=== PATIENT | male | born 1955 | race Caucasian/White ===

== ENCOUNTER 2024-11-19 04:27 | Inpatient (IN) | payer OTHER, MEDICAID ==
[~2024-11-19] VITALS: Ht 180.3 cm; Wt 74.8 kg
[2024-11-19] VITALS (10 sets, daily range): BP systolic 81–124; BP diastolic 32–98; PULSE 63–93; RESP 20–38; TEMP 98.1; O2SAT 91–100
[~2024-11-19 04:27] MED LIST: CEPH-37 PO; NORPTMEDS CO; SILV-51 TOP; TRAM50TA2 PO
[2024-11-19] MEDS: IPRATROPIUM BROM 0.5 MG/2.5ML INH SOL NEB ONE (04:41)
[2024-11-19] MEDS: ALBUTEROL SULF 2.5 MG/0.5ML(0.5%) NEB SOLN NEB ONE ×2 (04:42→14:59)
[2024-11-19] MEDS: LORazepam 2MG/ML-1ML VIAL IV ONE ×3 (04:57→06:36)
[2024-11-19] MEDS: methylPREDNISolone SOD SUCC 125 MG/2 ML VL IV ONE (04:57)
--- NOTE | 2024-11-19 05:01 | ED.PDOC ---
SOB-HPI HPI Comments HPI: Poor Historian. 69-year-old male presents to emergency department for acute respiratory distress has been going on for at least one-week progressively getting worse. Patient smokes methamphetamine daily. Patient is extremely poor historian. Patient does not know his past medical history. Patient states having shortness of breath unable to take a full breath in. RT was called to bedside. Chest x-ray was performed stat. Patient was given breathing treatment and Solu-Medrol. Patient was placed on a BiPAP with some Ativan to help calm down. No family members at bedside. Past Medical History: Hypertension Past Surgical History: Cervical spine surgery REVIEW OF SYSTEMS: CONSTITUTIONAL: Denies acute: fever, diaphoresis, chills, HEAD: Denies acute: headache, photophobia Eyes: Denies acute: Double vision, vision loss, eye pain, eye discharge. EARS: Denies acute: tinnitus, hearing loss, ear discharge, ear pain, THROAT: Denies acute: sore throat, swelling, difficulty swallowing , pain with swallowing, change in voice. NECK: Denies acute: neck pain, neck swelling, stiff neck. HEART: Denies acute : chest pain, palpitations, LUNGS: Denies acute: wheezing, cough, hemoptysis ABDOMEN: Denies acute: abdominal pain, Nausea, Vomiting, diarrhea, melena , hematemesis, hematochezia SKIN: Denies acute: rash, redness, lesions, itchiness. EXTREMITIES: Denies acute: calf pain, numbness, tingling, weakness, denies pain in extremity. Denies acute: Low back pain. Neuro: Denies acute: focal neurological deficit, motor or sensory focal neurological deficit, tremors, seizure like activity, confusion, dizziness, change in mental status, loss of bowel or bladder function, cauda equina like symptoms. : Denies acute: dysuria, hematuria, flank pain, increase in urinary frequency. PSYCH: Denies acute: hallucination, suicidal ideation, homicidal ideation. PHYSICAL EXAM: General: ---moderate -----acute distress, awake and alert. Head: normocephalic, atraumatic. Neck: supple, trachea is midline, no swelling. Throat: Normal phonation. Eyes:, no erythema, no purulent discharge, no proptosis, no icterus. Heart: regular rate, regular rhythm, no significant murmur appreciated. Lungs: Acute respiratory distress, tachypnea No wheezing, no rhonchi, no crackles. No stridors Clear to auscultation bilaterally. Abdomen: non tender to palpation, non distended, soft, no guarding, no rebound, + bowel sounds. Neuro: Awake, Alert, oriented to name, self, situation, follows commands GCS=15. Speech is normal. Skin: no petechia, no purpura, no cyanosis, non-pale, not jaundice. Lower extremities: --no - Pitting edema no deformity, no focal swelling, no calf TTP. Makes eye contact. moves all four extremities. Face: no apparent facial droop. ED COURSE: DISCLAIMER: This medical document was created using an electronic medical record system with voice recognition software and computerized dictation system. Although this document has been carefully reviewed, there might still be some phonetic and typographical errors. Occasional wrong-word or "sound-alike" substitutions may have occurred due to the inherent limitations of voice recognition software. These areas are purely typographical due to imperfections of the software programs and do not reflect any compromise in the patient's medical care. Please read the chart carefully and recognize, using context, where these substitutions have occurred. Chief Complaint: Shortness of Breath Time Seen by MD: 04:57 Primary Care Provider: NONE Reviewed notes: Allergies Information Source: Patient Mode of Arrival: Wheelchair Past Medical History PAST MEDICAL HISTORY: Denies Surgical History: Denies all surgeries Family History Family History: Unobtainable Social History Smoker: Cigarettes, Greater Than 1 Pack/Day Alcohol: Denies ETOH Use Drugs: Denies Drug Use Lives In: Home Was a procedure done? Was a procedure done?: No Differential Dx Differential Diagnosis: Anxiety, Asthma, Bronchitis, Pneumonia, Sinusitis, Allergic Rhinitis, Other (DDx include ACS, unstable angina, anxiety, PE, pneumothroax, neoplasm, cardiac ischemia, COPD, asthma, CHF, pleural effusion, tobacco abuse, pneumonia, hypoxia, hypercapnia, anemia., infection/sepsis., pulmonary edema. Asthma, Cardiac tamponade, infection.) X-Ray, Labs, Meds, VS Vital Signs Date Time Temp Pulse Resp B/P (MAP) Pulse Ox O2 Delivery O2 Flow Rate FiO2 11/19/24 05:25 115/82 11/19/24 05:16 98.1 88 24 115/82 100 40 98.1 11/19/24 04:50 90 115/82 Facial BiPAP Mask 40 11/19/24 04:42 22 100 Non-Rebreather 12 N/A 11/19/24 04:41 88 20 95 Non-Rebreather 11 N/A 11/19/24 04:41 98.1 88 20 160/87 (111) 99 98.1 11/19/24 04:40 87 11/19/24 04:29 98.5 85 30 127/46 89 98.5 Lab Test 11/19/24 05:13 11/19/24 04:40 Range/Units White Blood Count Pending Red Blood Count Pending Hemoglobin Pending Hematocrit Pending Mean Corpuscular Volume Pending Mean Corpuscular Hemoglobin Pending Mean Corpuscular Hemoglobin Concent Pending Red Cell Distribution Width Pending Platelet Count Pending Mean Platelet Volume Pending Neutrophils (%) (Auto) Pending Lymphocytes (%) (Auto) Pending Monocytes (%) (Auto) Pending Basophils (%) (Auto) Pending Neutrophils # (Auto) Pending Lymphocytes # (Auto) Pending Monocytes # (Auto) Pending Sodium Level Pending Potassium Level Pending Chloride Level Pending Carbon Dioxide Level Pending Anion Gap Pending Blood Urea Nitrogen Pending Creatinine Pending Glomerular Filtration Rate Calc Pending BUN/Creatinine Ratio Pending Serum Glucose Pending Calcium Level Pending Total Bilirubin Pending Aspartate Amino Transferase (AST) Pending Alanine Aminotransferase (ALT) Pending Alkaline Phosphatase Pending B-Type Natriuretic Peptide Pending Total Protein Pending Albumin Pending Troponin I High Sensitivity 371 *H </=54 ng/L Current Medications Medications (Trade) Dose Ordered Sig/Dona Route Start Time Stop Time Status Last Admin Albuterol (Ventolin Medneb) 2.5 mg ONCE ONCE NEB 11/19/24 04:30 11/19/24 04:31 DC 11/19/24 04:42 Ipratropium [place] (Atrovent Medneb) 0.5 mg ONCE ONCE NEB 11/19/24 04:30 11/19/24 04:31 DC 11/19/24 04:41 Methylprednisolone Sodium Succinate (Solu Medrol) 125 mg ONCE ONCE IV 11/19/24 04:45 11/19/24 04:46 DC 11/19/24 04:57 Lorazepam (Ativan Inj) 1 mg ONCE ONCE IV 11/19/24 05:00 11/19/24 05:01 DC 11/19/24 04:57 Furosemide (Lasix Injection) 40 mg ONCE ONCE IV 11/19/24 05:15 11/19/24 05:16 DC 11/19/24 05:25 Lorazepam (Ativan Inj) 1 mg ONCE ONCE IV 11/19/24 05:30 11/19/24 05:31 DC 11/19/24 05:30 Aspirin 325 mg ONCE ONCE PO 11/19/24 06:15 11/19/24 06:16 11/19/24 06:10 [place] [id number] Ph: [phone] DIAGNOSTIC IMAGING Diagnostic Imaging Report : [id number] Signed PATIENT: LEONOR GRAF ACCT: [id number] UNIT: [id number] : 1955 LOC: ER ROOM / BED: / AGE / SEX: 69 / M ADM STATUS: REG ER SERVICE ORDERING PHYSICIAN: NERI EDOUARD DO PROCEDURE(s): CXRP - CHEST PORTABLE REASON: sob ORDER NUMBER(s): [id number], ACCESSION NUMBER(s): [id number] CHEST RADIOGRAPH Indication: sob Technique: Single frontal view of the chest was obtained COMPARISON: None FINDINGS: Lines and Tubes: None Lungs: Increased interstitial prominence Pleura: No effusion. No pneumothorax. Cardiomediastinal contours: Unremarkable Bones: Unremarkable IMPRESSION: Increased interstital prominence. This may represent pulmonary vascular congestion and/or viral pneumonia. Clinical correlation advised. ATED BY: PORFIRIO THIBODEAUX MD DICTATED DATE/TIME: 11/19/24508 SIGNED BY: PORFIRIO THIBODEAUX MD SIGNED DATE/TIME: 11/19/24508 CC: Time of 1ST Reevaluation: 06:15 (As of now, all labs are still pending except troponin. Patient was placed on a BiPAP and he is improving. ABG was obtained.) Reevaluation 1ST: Improved Patient Education/Counseling: Diagnosis, Treatment Family Education/Counseling: Other Comments MDM: patient presented with the above HPI.--acute respiratory d istress----workup was initiated. patient was found with the above mentioned diagnosis. the following medications were ordered: please refer to order lists of meds and tests obtained by myself Dr. Edouard. Patient ED course and VS have been stabilized. Patient has been reassessed in the ED and remained in a guarded condition. Pertinent incidental findings were discussed with the patient and/or family. Patient/family voices understanding and is agreeable with plan. Patient has been observed in the ED adequate length of time to insure improvement/stability. Escalation of care considered: Consideration of escalation to observation or admission Patient was given Lasix, Ativan, full-dose aspirin, Solu-Medrol, DuoNeb treatment. Patient was placed on a BiPAP to help diurese. Patient was ADMITTED to the medicine team for further evaluation and treatment of their presentation. All the reports of any imaging studies that were ordered by myself were reviewed by myself. Departure 1 Departure Time of Disposition: 05:00 Impression: Primary Impression: Acute respiratory distress Additional Impressions: Methamphetamine abuse Pulmonary vascular congestion Elevated troponin Disposition: ADMITTED INPATIENT Admit to: Tele Condition: Guarded Additional Instructions: [place] [address] Ph: [phone] DIAGNOSTIC IMAGING Diagnostic Imaging Report : [id number] Signed PATIENT: LEONOR GRAF ACCT: [id number] UNIT: [id number] : 1955 LOC: ER ROOM / BED: / AGE / SEX: 69 / M ADM STATUS: REG ER SERVICE 0440 ORDERING PHYSICIAN: NERI EDOUARD DO PROCEDURE(s): CXRP - CHEST PORTABLE REASON: sob ORDER NUMBER(s): [id number], ACCESSION NUMBER(s): [id number] CHEST RADIOGRAPH Indication: sob Technique: Single frontal view of the chest was obtained COMPARISON: None FINDINGS: Lines and Tubes: None Lungs: Increased interstitial prominence Pleura: No effusion. No pneumothorax. Cardiomediastinal contours: Unremarkable Bones: Unremarkable IMPRESSION: Increased interstital prominence. This may represent pulmonary vascular congestion and/or viral pneumonia. Clinical correlation advised. ATED BY: PORFIRIO THIBODEAUX MD DICTATED DATE/TIME: 11/19/24508 SIGNED BY: PORFIRIO THIBODEAUX MD SIGNED DATE/TIME: 11/19/24508 CC: Discharged With: Self Critical Care Note Critical Care Time?: Yes (45 min-critical care time only) Heart Score Heart Score: Heart Score Response (Comments) Value History Slightly Suspicious 0 EKG Normal 0 Age >65 2 Risk Factors 1 or 2 risk factors 1 Troponin >3 x's Normal limit 2 Total 5 I personally scribed for NERI EDOUARD DO ([email or web address]) on 11/19/24 at 05:15. Electronically submitted by Bety Callejas ([facility]). NERI EDOUARD DO Nov 19, 2024 05:01
--- NOTE | 2024-11-19 05:12 | DVH ---
CHEST RADIOGRAPH Indication: sob Technique: Single frontal view of the chest was obtained COMPARISON: None FINDINGS: Lines and Tubes: None Lungs: Increased interstitial prominence Pleura: No effusion. No pneumothorax. Cardiomediastinal contours: Unremarkable Bones: Unremarkable IMPRESSION: Increased interstital prominence. This may represent pulmonary vascular congestion and/or viral pneum onia. Clinical correlation advised.
[2024-11-19] MEDS: FUROSEMIDE 40 MG/4 ML VIAL IV ONE ×2 (05:25→06:37)
--- NOTE | 2024-11-19 05:33 | ECG ---
[facility] Test Date: 2024-11-19 Test Time: 04:40:42 Pat Name: LEONOR GRAF Department: Room: [address] [place] [address] Gender: M Physical Therapy Technician: SHANNON : 1955 Requested By: NERI EDOUARD Order Number: [id number] Reading MD: Charles Beatty Measurements Intervals [place] Rate: 87 P: 41 AK: 167 QRS: -68 QRSD: 108 T: 110 QT: 343 QTc: 413 Interpretive Statements Sinus rhythm Left anterior fascicular block Anterior infarct, old Abnormal T, consider ischemia, lateral leads Minimal ST elevation, lateral leads Artifact in lead(s) I,II,III,aVR,aVL,aVF,V1,V2,V3,V4,V5,V6 and baseline wander in lead(s) I,II,aVR,aVL,aVF,V3,V4 Electronically Signed On 11-25-2024 19:07:28 PDT by Charles Beatty Please click the below link to view image of tracing.
[2024-11-19 06:29] LABS: Base Excess -7.3 mmol/L (-2.0-3.0)
[2024-11-19 07:22] LABS: Hematocrit 50.8 % (41.0-53.0); Hemoglobin 16.7 g/dL (13.5-17.5); Mean Corpuscular Hemoglobin 31.3 pg (28.0-32.0); Mean Corpuscular Volume 95.3 fL (80.0-100.0); Nucleated Red Blood Cells % 0.1 %
[2024-11-19 07:38] LABS: Albumin 4.7 g/dL (3.2-4.8); Alkaline Phosphatase 91 U/L (46-116); Anion Gap 12 (5-15); BUN/Creatinine Ratio 9.0 (10.0-20.0); Blood Urea Nitrogen 14 mg/dL (9-23); Calcium 9.8 mg/dL (8.7-10.4); Sodium 137 mmol/L (136-145); Total Protein 7.9 g/dL (5.7-8.2)
[2024-11-19 07:42] LABS: Alanine Aminotransferase 108 U/L (7-40); Bilirubin, Total 2.0 mg/dL (0.2-1.0); Carbon Dioxide 18 mmol/L (20-31); Chloride 107 mmol/L (98-107); Glucose 115 mg/dL (74-106)
[2024-11-19 07:45] LABS: Potassium 5.9 mmol/L (3.5-5.1)
--- NOTE | 2024-11-19 08:29 | DVHHP2 ---
History of Present Illness Reason for Visit: Shortness of breath History of Present Illness Charlie Vargas, is a 69-year-old male who came to the ER for shortness of breath. According to ER documentation patient came in with complaints of shortness of breath x 1 week. While in the ER he was given a breathing treatment and placed o n oxygen. He continued to have shortness of breath, increased work of breathing, and anxiety. He was placed on a BiPAP, not tolerating due to anxiety, he was given IV Ativan 1mg x 3 doses as well as IV Lasix 40 mg x 2 doses. On my assessment patient was on a BiPAP, not responding to verbal sternal stimuli, painful stimuli, or when a Mayo catheter was placed. Flumazenil was ordered, but not given as patient began to wake up. I was not informed that the patient became awake. According to ER, the patient again was not tolerating the BiPAP, he was anxious, not following commands, and trying to pull at lines and the BiPAP. Patient was intubated by ER provider. ER documentation states the patient has history of hypertension and daily methamphetamine use. Cardiovascular: HTN Past Medical History Unable to obtain Past Surgical History Unable to obtain Family History Unable to obtain Past Social History Unable to obtain Review of Systems Review of Systems Unable to obtain Allergies: Coded Allergies: NO KNOWN ALLERGIES (Unverified , 11/19/24) Exam Vital Signs Vital Signs Date Time Temp Pulse Resp B/P (MAP) Pulse Ox O2 Delivery O2 Flow Rate FiO2 11/19/24 06:37 110/78 11/19/24 06:37 86 Facial BiPAP Mask 100 11/19/24 06:15 98.1 26 98.1 11/19/24 05:16 100 11/19/24 04:42 12 General Appearance: Other (patient altered, unresponsive) HEENT: Other (Mucous membr dry) Respiratory: Other (Diminished breath sounds) Cardiovascular: Regular rate, Normal S1, Normal S2 Abdominal: Normal bowel sounds, Soft, No tenderness Extremities: No clubbing, No cyanosis, No edema, Normal pulses Skin: No rashes, No breakdown, No significant lesion Neuro: Other (patient altered, unresponsive) Labs/Xrays Labs Test 11/19/24 07:09 11/19/24 06:18 11/19/24 05:13 Range/Units White Blood Count 10.9 H 4.4-10.8 10^3/uL Red Blood Count 5.34 4.5-5.90 10^6/uL Hemoglobin 16.7 13.5-17.5 g/dL Hematocrit 50.8 41.0-53.0 % Mean Corpuscular Volume 95.3 80.0-100.0 fL Mean Corpuscular Hemoglobin 31.3 28.0-32.0 pg Mean Corpuscular Hemoglobin Concent 32.8 32.0-36.0 g/dL Red Cell Distribution Width 15.6 H 11.8-14.3 % Platelet Count 200 140-450 10^3/uL Mean Platelet Volume 8.8 6.9-10.8 fL Neutrophils (%) (Auto) 69.8 37.0-80.0 % Lymphocytes (%) (Auto) 23.2 10.0-50.0 % Monocytes (%) (Auto) 4.5 0.0-12.0 % Eosinophils (%) (Auto) 2.0 0.0-7.0 % Basophils (%) (Auto) 0.5 0.0-2.0 % Neutrophils # (Auto) 7.6 1.6-8.6 10 ^3/uL Lymphocytes # (Auto) 2.5 0.4-5.4 10 ^3/uL Monocytes # (Auto) 0.5 0-1.3 10 ^3/uL Eosinophils # (Auto) 0.2 0-0.8 10 ^3/uL Basophils # (Auto) 0.1 0-0.2 10 ^3/uL Nucleated Red Blood Cells 0.1 % D-Dimer, Quantitative 3.28 H 0.0-0.49 mg/L FEU Sodium Level 137 136-145 mmol/L Potassium Level 5.9 *H 3.5-5.1 mmol/L Chloride Level 107 98-107 mmol/L Carbon Dioxide Level 18 L 20-31 mmol/L Anion Gap 12 5-15 Blood Urea Nitrogen 14 9-23 mg/dL Creatinine 1.56 H 0.700-1.30 mg/dL Glomerular Filtration Rate Calc 48 >90 mL/min BUN/Creatinine Ratio 9.0 L 10.0-20.0 Serum Glucose 115 H 74-106 mg/dL Calcium Level 9.8 8.7-10.4 mg/dL Total Bilirubin 2.0 H 0.2-1.0 mg/dL Aspartate Amino Transferase (AST) 116 H 13-40 U/L Alanine Aminotransferase (ALT) 108 H 7-40 U/L Alkaline Phosphatase 91 46-116 U/L Troponin I High Sensitivity 340 *H </=54 ng/L Total Protein 7.9 5.7-8.2 g/dL Albumin 4.7 3.2-4.8 g/dL Blood Gas Specimen Type Arterial Blood Gas Sample Site Left radial Blood Gas Patient Temperature 37.0 Arterial Blood Date Drawn [id number] Arterial Blood pH 7.308 L 7.350-7.450 Arterial Blood Partial Pressure CO2 37.0 35.0-48.0 mmHg Arterial Blood Partial Pressure O2 68.9 L 83.0-108.0 mmHg Arterial Blood HCO3 18.1 L 21.0-28.0 mmol/L Arterial Blood Oxygen Saturation 91.1 L 94.0-98.0 % Arterial Blood Base Excess -7.3 L -2.0-3.0 mmol/L Arterial Blood Oxyhemoglobin 89.6 L 94.0-98.0 % Arterial Blood Carboxyhemoglobin 1.2 0.5-1.5 % Arterial Blood Methemoglobin 0.5 0.0-1.5 % Darci Test Yes Blood Gas Total Hemoglobin 16.60 13.5-17.5 g/dL Blood Gas Set Respiration Rate 20.0 Blood Gas Modality Mask - bipap Blood Gas Spontaneous Rate 36 FiO2 % 40.0 Blood Gas EPAP 8 Blood Gas IPAP 15 B-Type Natriuretic Peptide 1450.30 0-100 pg/mL CHEST RADIOGRAPH FINDINGS: Lines and Tubes: None Lungs: Increased interstitial prominence Pleura: No effusion. No pneumothorax. Cardiomediastinal contours: Unremarkable Bones: Unremarkable IMPRESSION: Increased interstitial prominence. This may represent pulmonary vascular congestion and/or viral pneumonia. Clinical correlation advised. SEPSIS Sepsis Screen Date sepsis recognized/suspect: Nov 19, 2024 Time Sepsis recognized/suspect: 0450 Recent Procedure: No On Antibiotic Therapy: No Respiratory Rate >20: Yes Heart Rate >90: No Temp<36 C (96.8 F) or >38.3 C: No SBP <90 or MAP <65 mmHG: No New Acute Mental Status Change: No Is the patient on CPAP, BIPAP,: Yes Physician Orders [employer] (11/19/24 ) Chest Portable (11/19/24 04:40) Troponin-I Hs (11/19/24 07:40) Abg W/ Co-Ox (11/19/24 06:19) Abg W/ Co-Ox (11/19/24 06:21) Flumazenil Injection (Romazicon Injectio (11/19/24 08:30) Admit (11/19/24 08:24) Code Status (11/19/24 08:24) Ondansetron Hcl (Zofran) (11/19/24 08:30) Docusate Sodium Capsule (Colace Capsule) (11/19/24 08:30) Complete Blood Count (11/20/24 04:00) Comprehensive Metabolic Panel (11/20/24 04:00) Npo (Nothing By Mouth) Diet (11/19/24 Breakfast) Echo 2d Mode Cardiac Dop (11/19/24 08:24) Condition: Critical (11/19/24 08:24) Acetaminophen Tablet (Tylenol Tablet) (11/19/24 08:30) Nitroglycerin Sublingual (Ntrostat Subli (11/19/24 08:30) Morphine Sulfate Injection (11/19/24 08:30) Stat Ekg For Chest Pain (11/19/24 08:24) Notify Md Of Changes From Base (11/19/24 08:24) Supervisor Fitting For 24 Hours (11/19/24 08:24) Emergency Dysrhythmia Protocol (11/19/24 08:24) Rhythm Strips Once Every Shift (11/19/24 08:24) Oxygen By Nasal Cannula (11/19/24 08:24) Vital Signs Date Time Temp Pulse Resp B/P (MAP) Pulse Ox O2 Delivery O2 Flow Rate FiO2 11/19/24 06:37 110/78 11/19/24 06:37 86 99/78 Facial BiPAP Mask 100 11/19/24 06:15 98.1 84 26 99/78 (85) 98.1 11/19/24 05:25 115/82 11/19/24 05:16 98.1 88 24 115/82 100 40 98.1 11/19/24 04:50 90 115/82 Facial BiPAP Mask 40 11/19/24 04:42 22 100 Non-Rebreather 12 N/A 11/19/24 04:41 88 20 95 Non-Rebreather 11 N/A 11/19/24 04:41 98.1 88 20 160/87 (111) 99 98.1 11/19/24 04:40 87 11/19/24 04:29 98.5 85 30 127/46 89 98.5 Laboratory Tests Test 11/19/24 07:09 White Blood Count 10.9 10^3/uL (4.4-10.8) H Medications Medications Dose Ordered Sig/Dona Route Start Time Stop Time Status Last Admin Dose Admin Albuterol 2.5 mg ONCE ONCE NEB 11/19/24 04:30 11/19/24 04:31 DC 11/19/24 04:42 2.5 MG Aspirin 325 mg ONCE ONCE PO 11/19/24 06:15 11/19/24 06:16 DC 11/19/24 06:10 325 MG Furosemide 40 mg ONCE ONCE IV 11/19/24 05:15 11/19/24 05:16 DC 11/19/24 05:25 40 MG Furosemide 40 mg ONCE ONCE IV 11/19/24 06:45 11/19/24 06:46 DC 11/19/24 06:37 40 MG Ipratropium [place] 0.5 mg ONCE ONCE NEB 11/19/24 04:30 11/19/24 04:31 DC 11/19/24 04:41 0.5 MG Lorazepam 1 mg ONCE ONCE IV 11/19/24 05:00 11/19/24 05:01 DC 11/19/24 04:57 1 MG Lorazepam 1 mg ONCE ONCE IV 11/19/24 05:30 11/19/24 05:31 DC 11/19/24 05:30 1 MG Lorazepam 1 mg ONCE ONCE IV 11/19/24 06:30 11/19/24 06:32 DC 11/19/24 06:36 1 MG Methylprednisolone Sodium Succinate 125 mg ONCE ONCE IV 11/19/24 04:45 11/19/24 04:46 DC 11/19/24 04:57 125 MG Assessment/Plan Assessment/Plan Assessment: Acute hypoxemic respiratory failure, Elevated troponin, Acute kidney injury, Elevated D-Dimer, Leukocytosis, Methamphetamine abuse, Cardiomegaly, Likely CHF exacerbation, Hyperkalemia, Plan: Admit to ICU, Cardiology consult, Mechanical ventilation, CT angio chest, IV Lasix, IV antibiotics, Blood cultures, Head CT, ECHO, Plan discussed with: Patient My Orders Orders - MEL ZHU Procedure Category Date Status Time Flumazenil Injection PHA 11/19/24 Logged (Romazicon Injectio 08:30 Admit ADMIT 11/19/24 Transmitted 08:24 Code Status CODE 11/19/24 Transmitted 08:24 Ondansetron Hcl PHA 11/19/24 Transmitted (Zofran) 08:30 Docusate Sodium PHA 11/19/24 Transmitted Capsule (Colace 08:30 Complete Blood Count LAB 11/20/24 Verified 04:00 Comprehensive LAB 11/20/24 Verified Metabolic Panel 04:00 Npo (Nothing By DIET 11/19/24 Transmitted Mouth) Diet Breakfast Echo 2d Mode Cardiac US 11/19/24 Transmitted DOP 08:24 Condition: Critical [facility] 11/19/24 In Process 08:24 Acetaminophen Tablet [facility] 11/19/24 Transmitted (Tylenol Tablet) 08:30 Nitroglycerin [facility] 11/19/24 Transmitted Sublingual (Ntrostat 08:30 Morphine Sulfate PHA 11/19/24 Transmitted Injection 08:30 Stat Ekg For Chest [facility] 11/19/24 In Process Pain 08:24 Notify Of Changes [facility] 11/19/24 In Process From Base 08:24 Supervisor Fitting For [facility] 11/19/24 In Process 24 Hours 08:24 Emergency Dysrhythmia [facility] 11/19/24 In Process Protocol 08:24 Rhythm Strips Once [facility] 11/19/24 In Process Every Shift 08:24 Oxygen By Nasal RT 11/19/24 Transmitted Cannula 08:24 Date of Service: Nov 19, 2024 Billing Provider: MEL ZUH Common Visit Codes: [id number] INP/OBS CARE (HIGH) MEL ZHU Nov 19, 2024 08:29
[2024-11-19] MEDS ORDERED: MORPHINE SULFATE INJ 2 MG/ml SYRG IV PRN ×2 (08:30→08:45)
[2024-11-19] MEDS: FLUMAZENIL 0.1 MG/ML INJ 10ML MDV IV ONE (08:30)
[2024-11-19] MEDS ORDERED: FLUMAZENIL 0.1 MG/ML INJ 10ML MDV IV ONE (08:30)
[2024-11-19] MEDS ORDERED: ONDANSETRON HCL 4 MG/2 ML VIAL IV PRN ×2 (08:30→08:45)
[2024-11-19] MEDS ORDERED: NITROGLYCERIN 0.4 MG SL TAB SL PRN ×2 (08:30→08:45)
[2024-11-19] MEDS ORDERED: ACETAMINOPHEN 325 MG TAB PO PRN (08:30)
[2024-11-19] MEDS ORDERED: DOCUSATE SOD 100 MG CAP PO PRN ×2 (08:30→08:45)
[2024-11-19] MEDS: SODIUM CHLORIDE 0.9% 1,000 ML IV ONE (08:45)
[2024-11-19] MEDS: ETOMIDATE (2MG/ML) 20ML VIAL IV ONE ×2 (09:15→09:30)
[2024-11-19] MEDS: ROCURONIUM 10MG/ML 10ML VIAL IV ONE ×2 (09:15→09:30)
[2024-11-19] MEDS: MIDAZOLAM DRIP 50 mg/50mL 50 ML IV ONE (09:22)
[2024-11-19] MEDS: MIDAZOLAM DRIP 50 mg/50mL 50 ML IV SCH (09:30)
--- NOTE | 2024-11-19 10:35 | DVHNC2 ---
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 Indication: Hypotension, CVP monitoring Room prepared for procedure: Yes Business Analytics Specialist performed hand hygien: Yes Maximal sterile barrier precau: Mask/Eye shield, Sterile gown Skin Preparation: Chlorhexidine gluconate, Providine iodine Skin preparation completely dr: Yes Insertion site: Right, Femoral Central line catheter type: [id number]-[id number] dialysis Number of lumens: 3 Antiseptic ointment applied to: Yes Intubation Indication: Respiratory Insufficiency Prep: Preoxygenation Pretreated with: Analgesia Medicated with: Vecuronium Intubation Approach: Orotracheal Intubation size: cm (8) Date of Service: Nov 19, 2024 Billing Provider: MARÍA ELENA HINES MD Common Visit Codes: [id number] INP/OBS CARE (HIGH) Secondary Visit Codes: [id number] STANDBY SERVICE Consultation Codes: [id number] CONSULT <45MIN Procedure Codes: [id number], 32039-[id number] NON-TUNNEL CV CATH MARÍA ELENA HINES MD Nov 19, 2024 10:35
--- NOTE | 2024-11-19 10:50 | DVH ---
INDICATION: S/P INTUBATION, OG PLACEMENT, CENTRAL LINE PLACEMENT TECHNIQUE: Frontal view of the chest. COMPARISON: XY CHEST PORTABLE on DOS: 11/19/24 FINDINGS: Nasogastric tube tip in the stomach. Endotracheal tube 6 cm from the pelon.. The heart and mediasti nal contours are grossly unremarkable. There is no evidence of pleural disease. Increased interstiti al opacities.. The bony structures of the chest are intact without fracture. IMPRESSION: 1. Cardiomegaly with CHF.
[2024-11-19] MEDS ORDERED: ALTEPLASE (RECOMBINANT) 100 MG in STERILE WATER 100 ML IV ONE (11:00)
--- NOTE | 2024-11-19 11:25 | RESUS ---
SERJIO BLUE ASSESSSMENT History of Events History of Events: Patient was in radiology for CT scan. Upon completing first exam, contrast was given for second exam. Per primary nurse Cathi, shortly after, patient went pulseless into asystole. Serjio neal called and CPR was initiated. This is an inpatient who was admitted for Acute Hypoxic Respiratoroy Failure who was already intubated with Versed 5mg/hr infusing. History of hypertension and substance abuse. Initial Information Date: Nov 19, 2024 Time: 10:49 Location of Arrest: Radiology (CT room) Arrest Witnessed: Yes CPR started by whom: Hospital Staff Pre-Hospital Care: ACLS Type of arrest: Cardiac, Respiratory, Adult, Witnessed Spontaneous Respirations: No Pulse Present: No Monitoring: ECG, Pulse Oximetry Crash Cart Opened and Supplies: Yes Airway Ventilation Breathing at Onset: Assisted O2 Sat by Pulse Oximetry: 91 Oxygen Delivery Method: Ambu-Bag Artificial Ventilation: Bag/Endo tube Intubation Size: 8.0 cuffed Intubated orally: Yes Intubated Nasaly: No Tube secured at: 22 Comments: Patient was intubated prior to code blue. Circulation Circulation #1: Time: 10:50 Pulse Rate (adult): 0 Blood Pressure Systolic: 0 Blood Pressure Diastolic: 0 Circulation #2: Time: 11:00 Pulse Rate (adult): 73 Blood Pressure Systolic: 139 Blood Pressure Diastolic: 75 Circulation Comment: O2sat 96% Circulation #3: Time: 11:05 Pulse Rate (adult): 73 Blood Pressure Systolic: 134 Blood Pressure Diastolic: 83 Circulation Comment: O2sat 88% Circulation #4: Time: 11:15 Pulse Rate (adult): 73 Blood Pressure Systolic: 111 Blood Pressure Diastolic: 75 Temperature (Fahrenheit): 96.4 (rectal) Defibrillation Defbrillation : EKG Rhythm: V-Tachycardia Compressions: Manual Time Defibrillator Shocked Pt.: 10:51 Defib. Joules: 120 Pulse Present: No EKG Rhythm: Junctional Procedure - IV Procedure - IV : IV Side: Right IV Location: Wrist IV Catheter Type: Saline Lock IV Gauge: 20 IV Line Care: Saline Flush Comment Saline lock placed prior to code blue. Medications & Response Medications and Responses #1: Medication Time: 10:50 ADULT Medications Given ADULT: Epinephrine 1 mg, Sodium Bacarbinate 50 meq Route of Administration: IV Heart Rate: 0 EKG Rhythm: Asystole Blood Pressure Systolic: 0 Blood Pressure Diastolic: 0 O2 Sat by Pulse Oximetry: 91 EKG Rhythm: V-Tachycardia Medications and Responses #2: Medication Time: 10:52 ADULT Medications Given ADULT: Calcium Chloride 10 mL Route of Administration: IV Heart Rate: 0 EKG Rhythm: V-Tachycardia Blood Pressure Systolic: 0 Blood Pressure Diastolic: 0 O2 Sat by Pulse Oximetry: 92 EKG Rhythm: Other (Sinus Arrhythmia) Medications and Responses #3: Medication Time: 10:54 ADULT Medications Given ADULT: Sodium Bacarbinate 50 meq Route of Administration: IV Heart Rate: 66 EKG Rhythm: Sinus Rhythm Medications and Responses #4: Medication Time: 11:13 ADULT Medications Given ADULT: D50 (amp) Route of Administration: IV Procedure - NG/OG Tube Procedure - NG/OG Tube : Type of gastric tube placed: OG Tube Size: 16 GI Tube Secured: Yes Gastric Tube Suction Type/Desc: Clamped Gastric Content Description: Clear Comment OGT placed prior to code blue. Procedure - Central Venous Cat Central venous catheter site: Rt Femoral Comment: Central line was placed prior to code blue. Procedure - Mayo Catheter Urinary Catheter Type/Location: Uretheral (Mayo) Urinary Catheter Size: 16 Urine Appearance: Clear Urine Color: Yellow Mayo Catheter Secured: Yes Comment: Mayo catheter was placed prior to code blue. Nurses Notes Tammy Coma Scale Eye Opening: None (1) Amma Coma Scale Verbal: None (1) Tammy Coma Scale Motor: None (1) Glascow Total: 3 Pupil Reaction: Sluggish Bedside Blood Glucose: 53 (1110) EKG Rhythm: Sinus Rhythm, V-Tachycardia, Junctional, Asystole Nurses Notes - Comment: 1049: Code blue 1053: ROSC 1104: EKG completed= SR 74 1105: Heparin 5000 units IVP x1 given per Dr. Mittal verbal order. 1110: sprinkler repair technician at bedside. Time Code Ended Time Code Ended: 11:18 Post Arrest Status: Ventilated Outcome of code: Successful Family notified: No Attending called: Yes (1115 Slick Machado FIRER TUNNEL KILN at bedside) Code Team Present: Tesfaye PUENTES, Daxa KOO, Hamzah Pate RT, Cici RN, Lucia RN, Melanie RN, Otis technologist development, Joseline ERT, Leidy well logging captain mud analysis, Pascale RN, Rox RN Post Resuscitation Neurologica Pupil Size: 3 Comment: Equal and sluggish. ROSC Time of ROSC: 10:53 Rox Urena Nov 19, 2024 11:25
[2024-11-19] MEDS: HEPARIN SODIUM (PORCINE) 5000 UNITS/ML 1ML VIAL ONE (11:29)
[2024-11-19] MEDS: DOPamine 1600MCG/ML D5W 250 ML IV SCH ×2 (11:30→18:00)
[2024-11-19] MEDS: HEPARIN SODIUM (PORCINE) 5000 UNITS/ML 1ML VIAL IV ONE (11:30)
[2024-11-19] MEDS: DOPamine 1600MCG/ML D5W 250 ML IV ONE (11:42)
[2024-11-19] MEDS: DEXTROSE 50% SYRINGE 50 ML IV ONE (11:42)
[2024-11-19 11:51] LABS: Base Excess -10.4 mmol/L (-2.0-3.0)
[2024-11-19] MEDS ORDERED: EPINEPHrine HCL 1 MG/10 ML SYRG IV ONE (11:55)
[2024-11-19] MEDS: NOREPINEPHRINE 8 MG/250ML KIT 250 ML IV SCH (12:05)
[2024-11-19 12:16] LABS: Hematocrit 50.6 % (41.0-53.0); Hemoglobin 16.5 g/dL (13.5-17.5); Mean Corpuscular Hemoglobin 30.6 pg (28.0-32.0); Mean Corpuscular Volume 94.1 fL (80.0-100.0); Nucleated Red Blood Cells % 0.2 %
[2024-11-19] MEDS: NOREPINEPHRINE 8 MG/250ML KIT 250 ML IV ONE (12:16)
--- NOTE | 2024-11-19 12:35 | DVH ---
EXAM: CT HEAD WITHOUT CONTRAST INDICATION: S/P INTUBATION TECHNIQUE: CT images of the head were obtained without administration of IV contrast. CT scans at [facility] facility use dose modulation, iterative reconstruction, and/or weight based dosing when appropriate to reduce radiation dose to as low as reasonably achievable. COMPARISON: None FINDINGS: PARENCHYMA: No acute hemorrhage. There is no mass effect, midline shift, or herniation. There is pres ervation of the prakash white differentiation. Mild scattered hypoattenuation along the periventricular, centrum semiovale, and deep white matter tracts, which are nonspecific however statistically most li mary represent chronic microvascular ischemic change. VENTRICLES: No hydrocephalus. EXTRA-AXIAL SPACES: No extra-axial fluid collections. OTHER: The bony structures are intact. Visualized portions of the paranasal sinuses and mastoid air cells are clear. Partially visualized suspected loosening of the screws along the occipital calvarium . IMPRESSION: 1. No CT evidence of an acute intracranial abnormality.
[2024-11-19 13:25] LABS: Base Excess -8.2 mmol/L (-2.0-3.0)
--- NOTE | 2024-11-19 14:11 | DVH ---
Indication: R/O PE Technique: CT axial images of the abdomen and pelvis are obtained with intravenous contrast. Coronal and sagittal reformats were obtained. Radiation Dose Information: CTDI volume is 59.2 mGy. Dose-length product is 1808 mGy*cm Comparison: None FINDINGS: No contrast opacification of the pulmonary arteries. Contrast within the right central venous vascul ature, IVC, right hepatic veins, azygous vein, paralumbar veins Endotracheal tube. No pneumothorax. Bilateral pulmonary airspace consolidation most pronounced withi n the bilateral lower lobes. Small bilateral pleural effusions. Cardiomegaly. Coronary artery calcification disease. Small amount of air within the right atrium. Nasogastric tube projecting towards stomach. Cirrhotic morphology liver. Possible cholelithiasis. [id number] thoracic degenerative disc disease. IMPRESSION: No contrast within the pulmonary arteries. Can not evaluate for pulmonary embolism. Contrast within the right hepatic veins, azygous vein, right central venous veins. This can be secon andrew to poor contrast timing, venous stenosis / obstruction, right heart dysfunction. Recommend obtai marcial echocardiogram to further evaluate excluding type of right heart dysfunction, obstructive etiolo gy. Bilateral pulmonary airspace consolidation most pronounced in the lower lobes. Small bilateral pleural effusions. Cardiomegaly and coronary artery calcification disease. Small amount of air within the right atrium, likely iatrogenic. Correlate clinically. Cirrhotic morphology liver. Other findings as described.
[2024-11-19 14:12] LABS: Triglycerides 41.0 mg/dL (< 150)
[2024-11-19 14:13] LABS: Magnesium 2.0 mg/dL (1.6-2.6)
[2024-11-19 14:14] LABS: Cholesterol 107.0 mg/dL (< 200)
[2024-11-19 14:15] LABS: HDL Cholesterol 35.0 mg/dL (40-59)
--- NOTE | 2024-11-19 14:26 | DVHINCON2 ---
Date Seen: Nov 19, 2024 Referring Physician DHAVAL Carlin Reason for Consultation Elevated troponin, CHF exacerbation History of Present Illness This is a 69-year-old male patient who presents to the emergency room with chief complaint of worsening shortness of breath. At the time of assessment, the patient is chemically sedated and mechanically ventilated. Cardiology has been consulted at this time for elevated troponin level and CHF exacerbation. During this admission, the patient was a code blue. Today, while the patient was undergoing a CT angiogram, the patient lost pulse and CPR was initiated (see patient resuscitation status report). A twelve lead electrocardiogram done post CPR reveals normal sinus rhythm with first-degree conduction delay Q-waves in inferior leads. Initial troponin level of 371ng/L with flat trend thereafter. Significant past medical history per bedside RN includes hypertension and metha mphetamine use. No family at bedside to confirm patient's past medical history. Past Medical History Unable to obtain Past Surgical History Unable to obtain Family History Unable to obtain Social History Methamphetamine use per provider notes Allergies: Coded Allergies: NO KNOWN ALLERGIES (Unverified , 11/19/24) Home Meds Active Scripts Cephalexin (Keflex) 500 Mg Cap, 500 MG PO TID, #30 CAP Prov:GARY TONY N.P. 02/11/13 Tramadol Hcl (Tramadol Hcl) 50 Mg Tab, 50 MG PO Q6HP PRN, #30 TAB Prov:GARY TONY N.P. 02/11/13 Silver Sulfadiazine (Silver Sulfadiazine) 1 % Cre, 1 APPLIC TOP DAILY, #1 UNIT Prov:GARY TONY N.P. 02/11/13 Reported Medications No Reported Medication (NO REPORTED MEDICATION) Ea, 0 CO UNK, EA PATIENT HAS NO REPORTED MEDICATIONS 02/11/13 Home Meds Home medications reviewed. Current Medications Current Medications Medications (Trade) Dose Ordered Sig/Dona Route PRN Reason Start Time Stop Time Status Last Admin Ondansetron HCl (Zofran) 4 mg Q4HP PRN IV NAUSEA / VOMITING 11/19/24 08:30 11/19/24 08:37 DC Docusate Sodium (Colace Capsule) 100 mg BIDPRN PRN PO FOR CONSTIPATION 11/19/24 08:30 11/19/24 08:37 DC Acetaminophen (Tylenol Tablet) 650 mg Q6HP PRN PO PAIN SCALE 1-3 OR TEMP>100.4 11/19/24 08:30 11/19/24 08:37 DC Nitroglycerin (Ntrostat Sublingual) 0.4 mg Q5MINP PRN SL FOR CHEST PAIN 11/19/24 08:30 11/19/24 08:37 DC Morphine Sulfate 2 mg Q30M PRN IV FOR CHEST PAIN 11/19/24 08:30 11/19/24 08:37 DC Ondansetron HCl (Zofran) 4 mg Q4HP PRN IV NAUSEA / VOMITING 11/19/24 08:45 Morphine Sulfate 2 mg Q30M PRN IV FOR CHEST PAIN 11/19/24 08:45 Docusate Sodium (Colace Capsule) 100 mg BIDPRN PRN PO FOR CONSTIPATION 11/19/24 08:45 Acetaminophen (Tylenol Tablet) 650 mg Q6HP PRN PO PAIN SCALE 1-3 OR TEMP>100.4 11/19/24 08:45 Nitroglycerin (Ntrostat Sublingual) 0.4 mg Q5MINP PRN SL FOR CHEST PAIN 11/19/24 08:45 Midazolam HCl 50 ml @ 1 mls/hr Q24H IV 11/19/24 09:15 11/19/24 09:30 Dopamine HCl/ Dextrose 250 ml @ 15.338 mls/ hr [id number] IV 11/19/24 11:30 11/19/24 11:30 Norepinephrine Bitartrate 250 ml @ 3.75 mls/hr Q24H IV 11/19/24 12:15 11/19/24 12:05 Review of Systems Constitutional: No symptom reported Ears, Nose, & Throat: No symptom reported Eyes: No symptom reported Neurological: No symptoms reported Pulmonary/Respiratory: Shortness of breath Cardiovascular: No symptom reported Gastrointestinal: No symptom reported Genitourinary: No symptom reported Musculoskeletal: No symptom reported Skin: No symptom reported Psychiatric: No symptom reported Endocrine: No symptom reported Hematologic/Lymphatic: No symptom reported Vital Signs Vital Signs Date Time Temp Pulse Resp B/P (MAP) Pulse Ox O2 Delivery O2 Flow Rate FiO2 11/19/24 13:40 69 26 108/50 (69) 96 100 11/19/24 11:34 205.5 11/19/24 11:25 Ambu-Bag 11/19/24 04:42 12 Physical Exam General Appearance: Calm, relaxed. Pulmonary/Respiratory: Clear, bilateral breaths sounds. Mechanically ventilated Cardiovascular/Chest: Regular rate and rhythm. Peripheral Pulses: 2+ Radial (R). 2+ Radial (L). Abdominal Exam: Normal bowel sounds. Ankle Exam: Negative ankle edema Lower extremities: Negative lower extremity edema Neuro/Mental Status: Chemically sedated Thoughts/Psych: Deferred Appearance: No acute distress. Skin Exam: Cool skin. Unable to palpate pedal pulses. Labs/Diagnostic Data Labs Test 11/19/24 14:02 11/19/24 13:08 11/19/24 13:00 11/19/24 12:13 Range/Units Blood Gas Specimen Type Arterial Blood Gas Sample Site Right radial Blood Gas Patient Temperature 37.0 Arterial Blood Date Drawn [id number] Arterial Blood pH 7.196 *L 7.350-7.450 Arterial Blood Partial Pressure CO2 54.4 H 35.0-48.0 mmHg Arterial Blood Partial Pressure O2 68.5 L 83.0-108.0 mmHg Arterial Blood HCO3 20.6 L 21.0-28.0 mmol/L Arterial Blood Oxygen Saturation 89.3 L 94.0-98.0 % Arterial Blood Base Excess -8.2 L -2.0-3.0 mmol/L Arterial Blood Oxyhemoglobin 88.4 L 94.0-98.0 % Arterial Blood Carboxyhemoglobin 0.6 0.5-1.5 % Arterial Blood Methemoglobin 0.4 0.0-1.5 % Darci Test Modified Blood Gas Total Hemoglobin 17.20 13.5-17.5 g/dL Blood Gas Set Respiration Rate 26.0 Blood Gas Modality Vent - ac FiO2 % 100.0 Blood Gas Tidal Volume 550.0 Blood Gas PEEP or CPAP 8.0 Blood Gas Critical Value Read Back yes Blood Gas Notified Whom Blood Gas Notified Time [id number] Blood Gas Notified By mining plant operator mor Magnesium Level 2.0 1.6-2.6 mg/dL Triglycerides Level 41 < 150 mg/dL Cholesterol Level 107 < 200 mg/dL LDL Cholesterol 65 < 100 mg/dL HDL Cholesterol 35 L 40-59 mg/dL POC Glucose 154 H 70-106 mg/dl Test 11/19/24 12:05 11/19/24 07:09 11/19/24 06:18 11/19/24 05:13 Range/Units White Blood Count 14.1 #H 4.4-10.8 10^3/uL Red Blood Count 5.38 4.5-5.90 10^6/uL Hemoglobin 16.5 13.5-17.5 g/dL Hematocrit 50.6 41.0-53.0 % Mean Corpuscular Volume 94.1 80.0-100.0 fL Mean Corpuscular Hemoglobin 30.6 28.0-32.0 pg Mean Corpuscular Hemoglobin Concent 32.5 32.0-36.0 g/dL Red Cell Distribution Width 15.3 H 11.8-14.3 % Platelet Count 141 140-450 10^3/uL Mean Platelet Volume 9.0 6.9-10.8 fL Neutrophils (%) (Auto) 90.0 H 37.0-80.0 % Lymphocytes (%) (Auto) 5.8 L 10.0-50.0 % Monocytes (%) (Auto) 3.8 0.0-12.0 % Eosinophils (%) (Auto) 0.3 0.0-7.0 % Basophils (%) (Auto) 0.1 0.0-2.0 % Neutrophils # (Auto) 12.7 H 1.6-8.6 10 ^3/uL Lymphocytes # (Auto) 0.8 0.4-5.4 10 ^3/uL Monocytes # (Auto) 0.5 0-1.3 10 ^3/uL Eosinophils # (Auto) 0 0-0.8 10 ^3/uL Basophils # (Auto) 0 0-0.2 10 ^3/uL Nucleated Red Blood Cells 0.2 % Troponin I High Sensitivity 359 *H </=54 ng/L D-Dimer, Quantitative 3.28 H 0.0-0.49 mg/L FEU Blood Gas Spontaneous Rate 36 Blood Gas EPAP 8 Blood Gas IPAP 15 B-Type Natriuretic Peptide 1450.30 0-100 pg/mL Assessment Cardiopulmonary arrest status post CPR with ROSC Rule out structural heart disease NSTEMI Acute hypoxic respiratory failure Acute kidney injury Hyperkalemia Shock liver History of methamphetamine use Plan/Recommendation We will continue with following plan/recommendations (Dr. Beatty): We will proceed with obtaining a transthoracic echocardiogram to evaluate cardiac function and wall motion. Continue with vasopressor therapy for hemodynamic support. The patient underwent a CTA and subsequently had cardiopulmonary arrest in which CPR was initiated immediately and ROSC was achi eved within 4 minutes. Pupils reactive to light at time of assessment. CT angiography report was unable to evaluate for pulmonary embolism due to no contrast within the pulmonary arteries. D-dimer is noted to be elevated. The patient also has hyperkalemia and acute kidney injury at this time. We are awaiting echocardiogram results. The patient may benefit from ischemic workup w ith improvement in electrolyte derangement and kidney function. In the meantime, continue with close cardiac surveillance. Further recommendations per clinical course and progression. Thank you for allowing us to care for this patient. Please call with any questions or concerns. Critical care time spent: 44 minutes This medical document was created using an electronic medical record system with voice recognition software and computerized dictation system. Although this document has been carefully reviewed, there might still be some phonetic and typographical errors. Occasional wrong-word or ``sound-alike substitutions may have occurred due to the inherent limitations of voice recognition software. These areas are purely typographical due to imperfections of the software programs and do not reflect any compromise in the patient's medical care. Please read the chart carefully and recognize, using context, where these substitutions have occurred. Plan discussed with: Patient NYHA Physical activity limitations: NA Date of Service: Nov 19, 2024 Billing Provider: HEMA SCHWARZ Cardiology Common Codes: 71037-UJXSDEG INP/OBS CARE (High) Cardiology Consultation Codes: 07994-SCHLFYSPU CONSULT <45MIN HEMA SCHWARZ Nov 19, 2024 14:26
[2024-11-19 14:34] LABS: Sodium 137 mmol/L (136-145)
[2024-11-19 14:35] LABS: Anion Gap 12 (5-15); Calcium 9.6 mg/dL (8.7-10.4); Carbon Dioxide 20 mmol/L (20-31); Chloride 105 mmol/L (98-107); Potassium 8.3 mmol/L (3.5-5.1)
[2024-11-19 14:39] LABS: BUN/Creatinine Ratio 17.0 (10.0-20.0); Blood Urea Nitrogen 34 mg/dL (9-23); Glucose 135 mg/dL (74-106)
[2024-11-19 14:44] LABS: Alanine Aminotransferase 796 U/L (7-40); Albumin 4.1 g/dL (3.2-4.8); Alkaline Phosphatase 103 U/L (46-116); Bilirubin, Total 4.8 mg/dL (0.2-1.0); Total Protein 6.7 g/dL (5.7-8.2)
[2024-11-19] MEDS: EPINEPHrine HCL 250 ML IV SCH (14:45)
[2024-11-19] MEDS: DEXTROSE (50%) 50ML SYRG IV ONE (14:45)
[2024-11-19] MEDS: CALCIUM GLUC 1,000mg/50ml-NS 50 ML IV ONE (14:45)
[2024-11-19] MEDS: ALBUTEROL SULF 2.5 MG/0.5ML(0.5%) NEB SOLN ONE (14:59)
[2024-11-19] MEDS: InsuLIN REG 1unit/0.01ml Soln (100units/ml) IV ONE (15:00)
[2024-11-19] MEDS ORDERED: VANCOMYCIN PER PHARMACY 0 MG IV SCH (15:00)
[2024-11-19] MEDS: SODIUM BICARB 8.4% 50Meq/50ml SYR Vial IV ONE (15:27)
[2024-11-19 15:31] LABS: Chloride 104 mmol/L (98-107)
--- NOTE | 2024-11-19 15:31 | DVHPN2 ---
Subjective Patient intubated and sedated. Reviewed: Care Plan, H&P, Labs, Medications Changes from previous H/P or p: No Changes General: Per HPI Objective Vitals Vital Signs Date Time Temp Pulse Resp B/P (MAP) Pulse Ox O2 Delivery O2 Flow Rate FiO2 11/19/24 13:40 69 26 108/50 (69) 96 100 11/19/24 11:34 205.5 11/19/24 11:25 Ambu-Bag 11/19/24 04:42 12 General Appearance: Other (Chemically sedated) HEENT: PERRLA Lungs: Normal air movement, Other (Mechanical Ventilation) Cardiovascular: Normal S1, Normal S2 Abdomen: Normal bowel sounds, Soft, No tenderness Genitourinary: No Apparent Abnormalities (Mayo catheter) Skin: Dry, Intact Psych/Mental Status: Mental status NL, Mood NL Medications Current Medications Medications Dose Ordered Sig/Dona Route Start Time Stop Time Status Last Admin Dose Admin Ondansetron HCl 4 mg Q4HP PRN IV 11/19/24 08:45 Morphine Sulfate 2 mg Q30M PRN IV 11/19/24 08:45 Docusate Sodium 100 mg BIDPRN PRN PO 11/19/24 08:45 Acetaminophen 650 mg Q6HP PRN PO 11/19/24 08:45 Nitroglycerin 0.4 mg Q5MINP PRN SL 11/19/24 08:45 Midazolam HCl 50 ml @ 1 mls/hr Q24H IV 11/19/24 09:15 11/19/24 09:30 5 MLS/HR Dopamine HCl/ Dextrose 250 ml @ 15.338 mls/ hr [id number] IV 11/19/24 11:30 11/19/24 11:30 15.338 MLS/HR Norepinephrine Bitartrate 250 ml @ 3.75 mls/hr Q24H IV 11/19/24 12:15 11/19/24 12:05 3.75 MLS/HR Epinephrine HCl 250 ml @ 7.5 mls/hr Q24H IV 11/19/24 14:45 Piperacillin Sod/ Tazobactam Sod 100 ml @ 25 mls/hr Q8HR IV 11/19/24 22:00 UNV Vancomycin HCl 0 ml @ 0 mls/hr UD IV 11/19/24 15:00 UNV Ceftriaxone Sodium 50 ml @ 100 mls/hr DAILY@09 IV 11/20/24 09:00 UNV Laboratory Results Laboratory Tests 11/19/24 12:05 11/19/24 14:02 Chemistry Test 11/19/24 07:09 11/19/24 13:00 11/19/24 14:02 Albumin 4.7 g/dL (3.2-4.8) 4.1 g/dL (3.2-4.8) Calcium Level 9.8 mg/dL (8.7-10.4) 9.6 mg/dL (8.7-10.4) Total Protein 7.9 g/dL (5.7-8.2) 6.7 g/dL (5.7-8.2) Magnesium Level 2.0 mg/dL (1.6-2.6) Coagulation Test 11/19/24 07:09 D-Dimer, Quantitative 3.28 mg/L FEU (0.0-0.49) H Lipid panel Test 11/19/24 13:00 Cholesterol Level 107 mg/dL (< 200) HDL Cholesterol 35 mg/dL (40-59) L Triglycerides Level 41 mg/dL (< 150) Cardiac Markers Test 11/19/24 05:13 B-Type Natriuretic Peptide 1450.30 pg/mL (0-100) LFT Test 11/19/24 07:09 11/19/24 14:02 Alanine Aminotransferase (ALT) 108 U/L (7-40) H 796 U/L (7-40) H Alkaline Phosphatase 91 U/L (46-116) 103 U/L (46-116) Aspartate Amino Transferase (AST) 116 U/L (13-40) H 1361 U/L (13-40) H Total Bilirubin 2.0 mg/dL (0.2-1.0) H 4.8 mg/dL (0.2-1.0) H HgA1c, TSH Test 11/19/24 12:05 11/19/24 13:00 Hemoglobin A1c Pending Thyroid Stimulating Hormone (TSH) Pending Blood Gas Results Test 11/19/24 06:18 11/19/24 11:45 11/19/24 13:08 Arterial Blood pH 7.308 (7.350-7.450) 7.072 (7.350-7.450) 7.196 (7.350-7.450) FiO2 % 40.0 100.0 100.0 Labs and/or images reviewed: Labs reviewed by me, Image(s) reviewed by me Assessment/Plan Assessment/Plan Impression: -S/P cardiopulmonary arrest -Acute Hypoxic Respiratory Failure -Acute Decompensated Heart Failure -Hyperkalemia -Acute Kidney Injury/ VMN -Cardiogenic shock -Rule out aspiration PNA -Hx of Amphetamine use -NSTEMI type II Plan: -Continue Inotropic/Vasopressor therapy -Start abx with Zosyn -Cardiology consult -Potassium lowering agents -Nephrology consult -PUD/DVT prophylaxis -Increase RR to 28 -Repeat labs, abg, and cxr in am. Critical care time: 40min. Plan discussed with: Patient, Other (RN) My Orders Orders - AURELIO ZAMARRIPA NP Procedure Category Date Status Time Dopamine 1600mcg/Ml PHA 11/19/24 In Process D5W 11:30 Communication Order ORDERS 11/19/24 Transmitted 12:09 Norepinephrine 8 PHA 11/19/24 In Process Mg/250ml Kit 12:15 Calcium Gluc PHA 11/19/24 In Process 1,000mg/50ml-Ns 14:45 *Dr. [facility] CONS 11/19/24 Transmitted -[place] 14:36 Ventilator Orders RT 11/19/24 Transmitted 14:36 Epinephrine Hcl PHA 11/19/24 In Process 14:45 Basic Metabolic Panel LAB 11/19/24 Logged 17:00 Piperacillin-Tazob PHA 11/19/24 Logged 3.375gm (Zosyn 3.375g 22:00 Date of Service: Nov 19, 2024 Billing Provider: AURELIO ZAMARRIPA NP Common Visit Codes: 35326-[id number] CARE 30-74 MIN AURELIO ZAMARRIPA NP Nov 19, 2024 15:31
[2024-11-19 15:32] LABS: Anion Gap 10 (5-15); Calcium 9.6 mg/dL (8.7-10.4); Carbon Dioxide 21 mmol/L (20-31); Sodium 135 mmol/L (136-145)
[2024-11-19 15:34] LABS: Potassium 8.3 mmol/L (3.5-5.1)
[2024-11-19 15:37] LABS: BUN/Creatinine Ratio 11.5 (10.0-20.0); Blood Urea Nitrogen 25 mg/dL (9-23); Glucose 156 mg/dL (74-106)
[2024-11-19] MEDS: BUMETANIDE 2.5mg/10ml (0.25 mg/ml) INJ IV ONE (16:12)
[2024-11-19] MEDS: VANCOMYCIN 1.25GM/250ML 250 ML IV ONE (16:18)
--- NOTE | 2024-11-19 16:34 | DVHINCON2 ---
Date of service: Nov 19, 2024 Referring Physician Slick Shelley, nurse practitioner Reason for Consultation Acute kidney injury History of Present Illness Patient is 69-year-old male with past medical history of hypertension and methamphetamine abuse who was admitted for shortness of breath and hypoxemia for one-week. s/p cardiac arrest in the ER, patient intubated on ventilator. On admission patient found to have elevated BUN creatinine nephrology is consulted for acute kidney injury Past Medical History Hypertension Methamphetamine abuse Past Surgical History Unknown Allergies: Coded Allergies: NO KNOWN ALLERGIES (Unverified , 11/19/24) Home Meds Active Scripts Cephalexin (Keflex) 500 Mg Cap, 500 MG PO TID, #30 CAP Prov:GARY TONY N.P. 02/11/13 Tramadol Hcl (Tramadol Hcl) 50 Mg Tab, 50 MG PO Q6HP PRN, #30 TAB Prov:GARY TONY N.P. 02/11/13 Silver Sulfadiazine (Silver Sulfadiazine) 1 % Cre, 1 APPLIC TOP DAILY, #1 UNIT Prov:GARY TONY N.P. 02/11/13 Reported Medications No Reported Medication (NO REPORTED MEDICATION) Ea, 0 CO UNK, EA PATIENT HAS NO REPORTED MEDICATIONS 02/11/13 Current Medications Current Medications Medications (Trade) Dose Ordered Sig/Dona Route PRN Reason Start Time Stop Time Status Last Admin Piperacillin Sod/ Tazobactam Sod 100 ml @ 25 mls/hr Q8HR IV 11/19/24 22:00 11/20/24 14:26 Ceftriaxone Sodium 50 ml @ 100 mls/hr DAILY@09 IV 11/20/24 09:00 11/19/24 14:57 DC Pantoprazole Sodium (Protonix) 40 mg DAILY IV 11/20/24 10:00 11/20/24 09:48 Enoxaparin Sodium (Lovenox) 40 mg DAILY SC 11/20/24 10:00 11/20/24 09:49 Octreotide Acetate (SandoSTATIN) 100 mcg TID SUBCUT 11/19/24 22:00 11/20/24 14:33 Dopamine HCl/ Dextrose 250 ml @ 6.135 mls/ hr Q24H IV 11/19/24 16:45 11/20/24 09:43 DC 11/19/24 18:00 Bumetanide 12.5 mg/Miscellaneous 50 ml @ 2 mls/hr Q24H IV 11/19/24 16:45 11/20/24 10:06 DC 11/20/24 04:13 Vasopressin 20 units/Sodium Chloride 100 ml @ 12 mls/hr Q8H20M IV 11/19/24 17:00 11/20/24 12:37 Fentanyl Citrate 250 ml @ 2.5 mls/hr Q24H IV 11/20/24 01:30 11/20/24 01:43 Dopamine HCl/ Dextrose 250 ml @ 6.135 mls/ hr Q24H IV 11/20/24 09:45 11/20/24 10:30 Bumetanide 12.5 mg/Miscellaneous 50 ml @ 4 mls/hr [id number] IV 11/20/24 10:15 11/20/24 10:31 Zirconium Oxide (Lokelma) 10 gm Q8HR PO 11/20/24 10:15 11/20/24 13:55 DC Norepinephrine Bitartrate 32 mg/ Sodium Chloride 250 ml @ 0.938 mls/ hr Q24H IV 11/20/24 12:00 11/20/24 12:00 Zirconium Oxide (Lokelma) 10 gm Q8HR PO 11/20/24 14:00 11/20/24 15:30 DC Review of Systems Can not be obtained H&P Exam Vital Signs/I&O Vital Sign Date Time Temp Pulse Resp B/P (MAP) Pulse Ox O2 Delivery O2 Flow Rate FiO2 11/20/24 14:19 92 28 120/63 (82) 94 80 11/20/24 14:03 100.2 212.4 11/20/24 14:00 Mechanical Ventilator+ 11/20/24 02:01 0 Intake and Output 11/19/24 11/20/24 19:00 07:00 Intake Total 36.135 ml 598.316 ml Output Total 950 ml Balance 36.135 ml -351.684 ml Intake Oral 100 ml IV Total 36.135 ml 498.316 ml Output Urine Total 950 ml Physical Exam Patient intubated on ventilator Lungs clear to auscultation bilateral Cardiac exam tachycardia GI soft nontender Mayo catheter Neuro patient is a sedated Labs/Diagnostic Data Labs/Diagnostic Data Laboratory Tests Test 11/20/24 11:25 11/20/24 07:18 11/20/24 03:40 11/20/24 02:54 Range/Units Sodium Level 141 138 136-145 mmol/L Potassium Level 4.9 6.4 *H 3.5-5.1 mmol/L Chloride Level 103 102 98-107 mmol/L Carbon Dioxide Level 27 24 20-31 mmol/L Anion Gap 11 12 5-15 Blood Urea Nitrogen 57 #H 42 #H 9-23 mg/dL Creatinine 2.64 H 2.57 H 0.700-1.30 mg/dL Glomerular Filtration Rate Calc 26 27 >90 mL/min BUN/Creatinine Ratio 21.6 H 16.3 10.0-20.0 Serum Glucose 153 H 159 H 74-106 mg/dL Calcium Level 8.5 L 8.9 8.7-10.4 mg/dL Ammonia 27 11-32 umol/L Blood Gas Specimen Type Arterial Arterial Blood Gas Sample Site Left brachial Arterial line Blood Gas Patient Temperature 37.0 37.0 Arterial Blood Date Drawn [id number] Arterial Blood pH 7.352 7.231 *L 7.350-7.450 Arterial Blood Partial Pressure CO2 43.7 59.0 H 35.0-48.0 mmHg Arterial Blood Partial Pressure O2 118.7 H 118.9 H 83.0-108.0 mmHg Arterial Blood HCO3 23.7 24.2 21.0-28.0 mmol/L Arterial Blood Oxygen Saturation 97.9 97.7 94.0-98.0 % Arterial Blood Base Excess -2.0 -4.6 L -2.0-3.0 mmol/L Arterial Blood Oxyhemoglobin 97.1 97.2 94.0-98.0 % Arterial Blood Carboxyhemoglobin 0.3 L 0.1 L 0.5-1.5 % Arterial Blood Methemoglobin 0.5 0.4 0.0-1.5 % Darci Test N/a Yes Blood Gas Total Hemoglobin 16.20 16.90 13.5-17.5 g/dL Blood Gas Set Respiration Rate 28.0 28.0 Blood Gas Modality Vent - ac Vent - ac FiO2 % 90.0 90.0 Blood Gas Tidal Volume 550.0 450.0 Blood Gas PEEP or CPAP 8.0 8.0 Blood Gas Spontaneous Rate 29 Blood Gas Critical Value Read Back Yes Blood Gas Notified Whom caden Leslie md Blood Gas Notified Time [id number] Blood Gas Notified By Ship Liner mary anne peter White Blood Count 24.6 #H 4.4-10.8 10^3/uL Red Blood Count 5.24 4.5-5.90 10^6/uL Hemoglobin 16.4 13.5-17.5 g/dL Hematocrit 48.8 41.0-53.0 % Mean Corpuscular Volume 93.0 80.0-100.0 fL Mean Corpuscular Hemoglobin 31.3 28.0-32.0 pg Mean Corpuscular Hemoglobin Concent 33.6 32.0-36.0 g/dL Red Cell Distribution Width 15.2 H 11.8-14.3 % Platelet Count 150 140-450 10^3/uL Mean Platelet Volume 9.2 6.9-10.8 fL Neutrophils (%) (Auto) 37.0-80.0 % Lymphocytes (%) (Auto) 10.0-50.0 % Monocytes (%) (Auto) 0.0-12.0 % Basophils (%) (Auto) 0.0-2.0 % Neutrophils # (Auto) 1.6-8.6 10 ^3/uL Lymphocytes # (Auto) 0.4-5.4 10 ^3/uL Monocytes # (Auto) 0-1.3 10 ^3/uL Differential Total Cells Counted 100.0 100 Neutrophils % (Manual) 86 H 37.0-80.0 Band Neutrophils % (Manual) 7 Lymphocytes % (Manual) 5 L 10.0-50.0 Monocytes % (Manual) 2 0-12 Eosinophils % (Manual) 0 0-7 Basophils % (Manual) 0 0.0-2.0 Metamyelocytes % (manual) 0 Myelocytes % (Manual) 0 Promyelocytes % (Manual) 0 Blast Cells % (Manual) 0 Reactive Lymphocytes 0 Platelet Estimate Adequate Total Bilirubin 2.4 H 0.2-1.0 mg/dL Aspartate Amino Transferase (AST) 4066 H 13-40 U/L Alanine Aminotransferase (ALT) 2120 H 7-40 U/L Alkaline Phosphatase 97 46-116 U/L Total Protein 6.4 5.7-8.2 g/dL Albumin 3.8 3.2-4.8 g/dL Random Vancomycin Level 15.5 H 5-10 ug/mL Test 11/19/24 15:36 11/19/24 15:23 11/19/24 15:14 11/19/24 14:02 Range/Units Phosphorus Level 8.5 H 2.4-5.1 mg/dL Magnesium Level 2.2 1.6-2.6 mg/dL Creatine Kinase 139 46-171 U/L Vitamin D 25-Hydroxy 41.4 30.0-100 ng/mL Parathyroid Hormone (Intact) 224.6 H 18.4-80.1 pg/mL POC Glucose 159 H 70-106 mg/dl Sodium Level 135 L 137 136-145 mmol/L Potassium Level 8.3 *H 8.3 #*H 3.5-5.1 mmol/L Chloride Level 104 105 98-107 mmol/L Carbon Dioxide Level 21 20 20-31 mmol/L Anion Gap 10 12 5-15 Blood Urea Nitrogen 25 H 34 #H 9-23 mg/dL Creatinine 2.18 H 2.00 H 0.700-1.30 mg/dL Glomerular Filtration Rate Calc 32 36 >90 mL/min BUN/Creatinine Ratio 11.5 17.0 10.0-20.0 Serum Glucose 156 H 135 H 74-106 mg/dL Calcium Level 9.6 9.6 8.7-10.4 mg/dL Total Bilirubin 4.8 H 0.2-1.0 mg/dL Aspartate Amino Transferase (AST) 1361 H 13-40 U/L Alanine Aminotransferase (ALT) 796 H 7-40 U/L Alkaline Phosphatase 103 46-116 U/L Total Protein 6.7 5.7-8.2 g/dL Albumin 4.1 3.2-4.8 g/dL Test 11/19/24 13:08 11/19/24 13:00 11/19/24 12:13 11/19/24 12:05 Range/Units Blood Gas Specimen Type Arterial Blood Gas Sample Site Right radial Blood Gas Patient Temperature 37.0 Arterial Blood Date Drawn [id number] Arterial Blood pH 7.196 *L 7.350-7.450 Arterial Blood Partial Pressure CO2 54.4 H 35.0-48.0 mmHg Arterial Blood Partial Pressure O2 68.5 L 83.0-108.0 mmHg Arterial Blood HCO3 20.6 L 21.0-28.0 mmol/L Arterial Blood Oxygen Saturation 89.3 L 94.0-98.0 % Arterial Blood Base Excess -8.2 L -2.0-3.0 mmol/L Arterial Blood Oxyhemoglobin 88.4 L 94.0-98.0 % Arterial Blood Carboxyhemoglobin 0.6 0.5-1.5 % Arterial Blood Methemoglobin 0.4 0.0-1.5 % Darci Test Modified Blood Gas Total Hemoglobin 17.20 13.5-17.5 g/dL Blood Gas Set Respiration Rate 26.0 Blood Gas Modality Vent - ac FiO2 % 100.0 Blood Gas Tidal Volume 550.0 Blood Gas PEEP or CPAP 8.0 Blood Gas Critical Value Read Back yes Blood Gas Notified Whom Blood Gas Notified Time [id number] Blood Gas Notified By taxi truck driver mor Magnesium Level 2.0 1.6-2.6 mg/dL Triglycerides Level 41 < 150 mg/dL Cholesterol Level 107 < 200 mg/dL LDL Cholesterol 65 < 100 mg/dL HDL Cholesterol 35 L 40-59 mg/dL Thyroid Stimulating Hormone (TSH) 2.79 0.55-4.78 uIU/mL POC Glucose 154 H 70-106 mg/dl White Blood Count 14.1 #H 4.4-10.8 10^3/uL Red Blood Count 5.38 4.5-5.90 10^6/uL Hemoglobin 16.5 13.5-17.5 g/dL Hematocrit 50.6 41.0-53.0 % Mean Corpuscular Volume 94.1 80.0-100.0 fL Mean Corpuscular Hemoglobin 30.6 28.0-32.0 pg Mean Corpuscular Hemoglobin Concent 32.5 32.0-36.0 g/dL Red Cell Distribution Width 15.3 H 11.8-14.3 % Platelet Count 141 140-450 10^3/uL Mean Platelet Volume 9.0 6.9-10.8 fL Neutrophils (%) (Auto) 90.0 H 37.0-80.0 % Lymphocytes (%) (Auto) 5.8 L 10.0-50.0 % Monocytes (%) (Auto) 3.8 0.0-12.0 % Eosinophils (%) (Auto) 0.3 0.0-7.0 % Basophils (%) (Auto) 0.1 0.0-2.0 % Neutrophils # (Auto) 12.7 H 1.6-8.6 10 ^3/uL Lymphocytes # (Auto) 0.8 0.4-5.4 10 ^3/uL Monocytes # (Auto) 0.5 0-1.3 10 ^3/uL Eosinophils # (Auto) 0 0-0.8 10 ^3/uL Basophils # (Auto) 0 0-0.2 10 ^3/uL Nucleated Red Blood Cells 0.2 % Hemoglobin A1c 5.8 H <5.7 % A1C Troponin I High Sensitivity 359 *H </=54 ng/L Test 11/19/24 11:45 11/19/24 11:11 11/19/24 08:35 11/19/24 07:09 Range/Units Blood Gas Specimen Type Arterial Blood Gas Sample Site Right radial Blood Gas Patient Temperature 37.0 Arterial Blood Date Drawn [id number] Arterial Blood pH 7.072 *L 7.350-7.450 Arterial Blood Partial Pressure CO2 75.9 *H 35.0-48.0 mmHg Arterial Blood Partial Pressure O2 72.4 L 83.0-108.0 mmHg Arterial Blood HCO3 21.6 21.0-28.0 mmol/L Arterial Blood Oxygen Saturation 87.8 L 94.0-98.0 % Arterial Blood Base Excess -10.4 L -2.0-3.0 mmol/L Arterial Blood Oxyhemoglobin 86.7 L 94.0-98.0 % Arterial Blood Carboxyhemoglobin 0.8 0.5-1.5 % Arterial Blood Methemoglobin 0.5 0.0-1.5 % Darci Test Modified Blood Gas Total Hemoglobin 16.90 13.5-17.5 g/dL Blood Gas Set Respiration Rate 26.0 Blood Gas Modality Vent - ac FiO2 % 100.0 Blood Gas Tidal Volume 450.0 Blood Gas PEEP or CPAP 8.0 Blood Gas Critical Value Read Back yes Blood Gas Notified Whom Blood Gas Notified Time [id number] Blood Gas Notified By raghavendra juares POC Glucose 53 L 70-106 mg/dl Urine Color Yellow Yellow Urine Clarity Clear Clear Urine pH 5.5 5.0-9.0 Urine Specific [place] 1.017 1.001-1.035 Urine Protein 1+ H Negative Urine Ketones Negative Negative Urine Blood 2+ H Negative /uL Urine Nitrite Negative Negative Urine Bilirubin Negative Negative Urine Urobilinogen Normal Negative mg/dL Urine Leukocyte Esterase Negative Negative /uL Urine RBC 33 0 - 3 /hpf Urine Microscopic WBC 6 H 0-3 /HPF Urine Squamous Epithelial Cells Few <5 /hpf Urine Bacteria None seen None Seen /hpf Urine Osmolality 518 mOsm/kg Urine Creatinine 104.97 30.0-125.0 mg/dL Urine Protein/Creatinine Ratio 1.03 Urine Sodium 21 L 40-220 mmol/L Urine Glucose Normal Normal mg/dL Urine Total Protein 108.6 H 1-14 mg/dL Urine Opiates Screen Neg NEGATIVE Urine Fentanyl Screen Neg NEGATIVE Urine Barbiturates Screen Neg NEGATIVE Urine Phencyclidine Screen Neg NEGATIVE Urine Amphetamines Screen Pos NEGATIVE Urine Benzodiazepines Screen Pos NEGATIVE Urine Cocaine Screen Neg NEGATIVE Urine Cannabinoids Screen Pos NEGATIVE White Blood Count 10.9 H 4.4-10.8 10^3/uL Red Blood Count 5.34 4.5-5.90 10^6/uL Hemoglobin 16.7 13.5-17.5 g/dL Hematocrit 50.8 41.0-53.0 % Mean Corpuscular Volume 95.3 80.0-100.0 fL Mean Corpuscular Hemoglobin 31.3 28.0-32.0 pg Mean Corpuscular Hemoglobin Concent 32.8 32.0-36.0 g/dL Red Cell Distribution Width 15.6 H 11.8-14.3 % Platelet Count 200 140-450 10^3/uL Mean Platelet Volume 8.8 6.9-10.8 fL Neutrophils (%) (Auto) 69.8 37.0-80.0 % Lymphocytes (%) (Auto) 23.2 10.0-50.0 % Monocytes (%) (Auto) 4.5 0.0-12.0 % Eosinophils (%) (Auto) 2.0 0.0-7.0 % Basophils (%) (Auto) 0.5 0.0-2.0 % Neutrophils # (Auto) 7.6 1.6-8.6 10 ^3/uL Lymphocytes # (Auto) 2.5 0.4-5.4 10 ^3/uL Monocytes # (Auto) 0.5 0-1.3 10 ^3/uL Eosinophils # (Auto) 0.2 0-0.8 10 ^3/uL Basophils # (Auto) 0.1 0-0.2 10 ^3/uL Nucleated Red Blood Cells 0.1 % D-Dimer, Quantitative 3.28 H 0.0-0.49 mg/L FEU Sodium Level 137 136-145 mmol/L Potassium Level 5.9 *H 3.5-5.1 mmol/L Chloride Level 107 98-107 mmol/L Carbon Dioxide Level 18 L 20-31 mmol/L Anion Gap 12 5-15 Blood Urea Nitrogen 14 9-23 mg/dL Creatinine 1.56 H 0.700-1.30 mg/dL Glomerular Filtration Rate Calc 48 >90 mL/min BUN/Creatinine Ratio 9.0 L 10.0-20.0 Serum Glucose 115 H 74-106 mg/dL Calcium Level 9.8 8.7-10.4 mg/dL Total Bilirubin 2.0 H 0.2-1.0 mg/dL Aspartate Amino Transferase (AST) 116 H 13-40 U/L Alanine Aminotransferase (ALT) 108 H 7-40 U/L Alkaline Phosphatase 91 46-116 U/L Troponin I High Sensitivity 340 *H </=54 ng/L Total Protein 7.9 5.7-8.2 g/dL Albumin 4.7 3.2-4.8 g/dL Test 11/19/24 06:18 11/19/24 05:13 11/19/24 04:40 Range/Units Blood Gas Specimen Type Arterial Blood Gas Sample Site Left radial Blood Gas Patient Temperature 37.0 Arterial Blood Date Drawn [id number] Arterial Blood pH 7.308 L 7.350-7.450 Arterial Blood Partial Pressure CO2 37.0 35.0-48.0 mmHg Arterial Blood Partial Pressure O2 68.9 L 83.0-108.0 mmHg Arterial Blood HCO3 18.1 L 21.0-28.0 mmol/L Arterial Blood Oxygen Saturation 91.1 L 94.0-98.0 % Arterial Blood Base Excess -7.3 L -2.0-3.0 mmol/L Arterial Blood Oxyhemoglobin 89.6 L 94.0-98.0 % Arterial Blood Carboxyhemoglobin 1.2 0.5-1.5 % Arterial Blood Methemoglobin 0.5 0.0-1.5 % Darci Test Yes Blood Gas Total Hemoglobin 16.60 13.5-17.5 g/dL Blood Gas Set Respiration Rate 20.0 Blood Gas Modality Mask - bipap Blood Gas Spontaneous Rate 36 FiO2 % 40.0 Blood Gas EPAP 8 Blood Gas IPAP 15 B-Type Natriuretic Peptide 1450.30 0-100 pg/mL Troponin I High Sensitivity 371 *H </=54 ng/L Microbiology Date/Time Source Procedure Growth Status 11/20/24 04:00 Nose MRSA Screen - Final Complete Assessment Acute kidney injury superimposed Chronic Kidney Disease secondary hemodynamic mediated Acute respiratory failure, patient intubated on ventilator Congestive heart failure exacerbation Hyperkalemia Methamphetamine abuse NSTEMI Liver cirrhosis Jaundice Septic shock Recommendations Closely monitor fluid and electrolytes Avoid nephrotoxic medications Mayo catheter Strict I&Os Emergent medical treatment for hyperkalemia Check urinalysis urine electrolytes and protein excretion Check kidney ultrasound IV pressors for blood pressure support Octreotide I agree with diuresis IV antibiotics Cardiology consult We will continue to follow Patient seen and examined by myself. I discussed my plan of care with the primary nurse at the bedside I would like to thank Slick for the consult, will follow up Plan discussed with: Other (Nurse) TERESA DODD MD Nov 19, 2024 16:34
--- NOTE | 2024-11-19 17:09 | DVH ---
RENAL ULTRASOUND CLINICAL HISTORY: shaqu[place] TECHNIQUE: Multiple grayscale ultrasound images were obtained through the kidneys and urinary bladder . COMPARISON: None FINDINGS: Right kidney: Measures 11.3 cm. No hydronephrosis. Increased echogenicity of the right renal cortex. Left kidney: Measures 11.2 cm. No hydronephrosis. Increased echogenicity of the left renal cortex. Urinary bladder: Mayo catheter decompresses the urinary bladder. Increased echogenicity of the visualized liver. IMPRESSION: 1. Normal size kidneys without evidence of hydronephrosis. 2. Increased echogenicity of the bilateral kidneys which could be related to medical renal disease. 3. Increased echogenicity of the visualized liver suggesting hepatic steatosis.
[2024-11-19 18:56] LABS: Protein, Urine 108.6 mg/dL (1-14)
[2024-11-19 19:00] LABS: Cannabinoid Screen, Urine Pos (NEGATIVE)
[2024-11-19 19:01] LABS: Amphetamine Screen, Urine Pos (NEGATIVE); Barbiturate Scree,Urine Neg (NEGATIVE); Benzodiazephine Screen, Urine Pos (NEGATIVE); Cocaine Screen, Urine Neg (NEGATIVE); Opiate Scree,Urine Neg (NEGATIVE); Phencyclidine Screen, Urine Neg (NEGATIVE)
[2024-11-19] MEDS: BUMETANIDE INJECTION 12.5 MG in GIVE UN-DILUTED 0 ML IV SCH (19:01)
[2024-11-19 19:03] LABS: Magnesium 2.2 mg/dL (1.6-2.6)
[2024-11-19 19:07] LABS: Urine Protein, UAD 1+ (Negative)
[2024-11-19] MEDS: VASOPRESSIN 20 UNIT/ML ONE (21:30)
[2024-11-19] MEDS: VASOPRESSIN 20 UNITS in SODIUM CHL 0.9% 99 ML IV SCH (21:30)
[2024-11-19] MEDS: PIPERACILLIN-TAZOB 3.375GM 100 ML IV SCH (22:00)
[2024-11-19] MEDS: OCTREOTIDE ACETATE 100 MCG/ML VL SUBCUT SCH (22:00)
[2024-11-20] VITALS (110 sets, daily range): BP systolic 67–153; BP diastolic 39–75; PULSE 80–97; RESP 27–37; TEMP 81.3–100.4; O2SAT 88–100
[2024-11-20] MEDS: fentaNYL Drip 2500mCg/250mlNS 250 ML IV SCH (01:43)
[2024-11-20 03:57] LABS: Base Excess -4.6 mmol/L (-2.0-3.0)
[2024-11-20 04:07] LABS: Albumin 3.8 g/dL (3.2-4.8); Alkaline Phosphatase 97 U/L (46-116); Anion Gap 12 (5-15); BUN/Creatinine Ratio 16.3 (10.0-20.0); Calcium 8.9 mg/dL (8.7-10.4); Carbon Dioxide 24 mmol/L (20-31); Chloride 102 mmol/L (98-107); Sodium 138 mmol/L (136-145); Total Protein 6.4 g/dL (5.7-8.2)
[2024-11-20 04:21] LABS: Hematocrit 48.8 % (41.0-53.0); Hemoglobin 16.4 g/dL (13.5-17.5); Mean Corpuscular Hemoglobin 31.3 pg (28.0-32.0); Mean Corpuscular Volume 93.0 fL (80.0-100.0)
[2024-11-20 04:26] LABS: Alanine Aminotransferase 2120 U/L (7-40); Blood Urea Nitrogen 42 mg/dL (9-23); Glucose 159 mg/dL (74-106)
[2024-11-20 04:27] LABS: Bilirubin, Total 2.4 mg/dL (0.2-1.0)
[2024-11-20 04:29] LABS: Potassium 6.4 mmol/L (3.5-5.1)
[2024-11-20] MEDS: ALBUTEROL SULF 2.5 MG/0.5ML(0.5%) NEB SOLN NEB ONE (04:53)
[2024-11-20] MEDS: DEXTROSE (50%) 50ML SYRG IV ONE (05:00)
[2024-11-20] MEDS: CALCIUM GLUC 1,000mg/50ml-NS 50 ML IV ONE (05:00)
[2024-11-20] MEDS: SODIUM BICARB 8.4% 50Meq/50ml SYR Vial IV ONE (05:00)
[2024-11-20] MEDS: SODIUM ZIRCONIUM CYCL 10 GM PAK PO ONE (05:00)
[2024-11-20] MEDS: InsuLIN REG 1unit/0.01ml Soln (100units/ml) IV ONE (05:01)
[2024-11-20 05:20] LABS: Total Cells Counted 100.0 (100)
--- NOTE | 2024-11-20 06:30 | DVH ---
CHEST RADIOGRAPH Indication: ventilated Technique: Single frontal view of the chest was obtained Comparison: CT CT ANGIO CHEST CONTRAST on DOS: 11/19/24 FINDINGS: Lines and Tubes: The endotracheal tube terminates 7.2 cm above the pelon. The enteric tube courses b elow the left hemidiaphragm and the tip extends outside the field of view. Lungs: Stable prominent bilateral interstitial opacities. Interval development of a right upper lobe consolidation. Patchy left basilar airspace disease. Pleura: No effusion. No pneumothorax. Cardiomediastinal contours: Cardiomegaly. Bones: No acute osseous abnormality. IMPRESSION: 1. Pulmonary vascular congestion. 2. Interval development of right upper lobe consolidation suspicious for pneumonia in the appropriate clinical setting. Left basilar airspace disease which may reflect atelectasis or pneumonia.
[2024-11-20 07:49] LABS: Base Excess -2.0 mmol/L (-2.0-3.0)
--- NOTE | 2024-11-20 08:49 | DVHPN2 ---
Subjective Patient intubated and sedated. Reviewed: Care Plan, H&P, Labs, Medications Changes from previous H/P or p: No Changes General: Per HPI Objective Vitals Vital Signs Date Time Temp Pulse Resp B/P (MAP) Pulse Ox O2 Delivery O2 Flow Rate FiO2 11/20/24 06:59 85/52 11/20/24 06:45 99.3 82 28 96 210.7 11/20/24 06:00 Mechanical Ventilator+ 90 90 11/20/24 02:01 0 Intake/Output Intake and Output 11/20/24 07:00 Intake Total 582.201 ml Output Total 950 ml Balance -367.799 ml Intake Oral 100 ml IV Total 482.201 ml Output Urine Total 950 ml General Appearance: Other (Chemically sedated) HEENT: PERRLA Lungs: Normal air movement, Other (Mechanical Ventilation) Cardiovascular: Normal S1, Normal S2 Abdomen: Normal bowel sounds, Soft, No tenderness Genitourinary: No Apparent Abnormalities (Mayo catheter) Skin: Dry, Intact Psych/Mental Status: Other (Unable to assess) Medications Current Medications Medications Dose Ordered Sig/Dona Route Start Time Stop Time Status Last Admin Dose Admin Ondansetron HCl 4 mg Q4HP PRN IV 11/19/24 08:45 Morphine Sulfate 2 mg Q30M PRN IV 11/19/24 08:45 Docusate Sodium 100 mg BIDPRN PRN PO 11/19/24 08:45 Acetaminophen 650 mg Q6HP PRN PO 11/19/24 08:45 Nitroglycerin 0.4 mg Q5MINP PRN SL 11/19/24 08:45 Midazolam HCl 50 ml @ 1 mls/hr Q24H IV 11/19/24 09:15 11/20/24 06:01 13 MLS/HR Norepinephrine Bitartrate 250 ml @ 3.75 mls/hr Q24H IV 11/19/24 12:15 11/19/24 12:05 3.75 MLS/HR Epinephrine HCl 250 ml @ 7.5 mls/hr Q24H IV 11/19/24 14:45 Piperacillin Sod/ Tazobactam Sod 100 ml @ 25 mls/hr Q8HR IV 11/19/24 22:00 11/20/24 05:48 25 MLS/HR Vancomycin HCl 0 ml @ 0 mls/hr UD IV 11/19/24 15:00 Pantoprazole Sodium 40 mg DAILY IV 11/20/24 10:00 Enoxaparin Sodium 40 mg DAILY SC 11/20/24 10:00 Octreotide Acetate 100 mcg TID SUBCUT 11/19/24 22:00 11/20/24 06:12 100 MCG Dopamine HCl/ Dextrose 250 ml @ 6.135 mls/ hr Q24H IV 11/19/24 16:45 11/19/24 18:00 6.135 MLS/HR Bumetanide 12.5 mg/Miscellaneous 50 ml @ 2 mls/hr Q24H IV 11/19/24 16:45 11/20/24 04:13 2 MLS/HR Vasopressin 20 units/Sodium Chloride 100 ml @ 12 mls/hr Q8H20M IV 11/19/24 17:00 11/20/24 04:03 12 MLS/HR Fentanyl Citrate 250 ml @ 2.5 mls/hr Q24H IV 11/20/24 01:30 11/20/24 01:43 2.5 MLS/HR Laboratory Results Laboratory Tests 11/20/24 02:54 Chemistry Test 11/19/24 13:00 11/19/24 14:02 11/19/24 15:14 11/19/24 15:36 Magnesium Level 2.0 mg/dL (1.6-2.6) 2.2 mg/dL (1.6-2.6) Albumin 4.1 g/dL (3.2-4.8) Calcium Level 9.6 mg/dL (8.7-10.4) 9.6 mg/dL (8.7-10.4) Total Protein 6.7 g/dL (5.7-8.2) Phosphorus Level 8.5 mg/dL (2.4-5.1) H Test 11/20/24 02:54 Albumin 3.8 g/dL (3.2-4.8) Calcium Level 8.9 mg/dL (8.7-10.4) Total Protein 6.4 g/dL (5.7-8.2) Lipid panel Test 11/19/24 13:00 Cholesterol Level 107 mg/dL (< 200) HDL Cholesterol 35 mg/dL (40-59) L Triglycerides Level 41 mg/dL (< 150) LFT Test 11/19/24 14:02 11/20/24 02:54 Alanine Aminotransferase (ALT) 796 U/L (7-40) H 2120 U/L (7-40) H Alkaline Phosphatase 103 U/L (46-116) 97 U/L (46-116) Aspartate Amino Transferase (AST) 1361 U/L (13-40) H 4066 U/L (13-40) H Total Bilirubin 4.8 mg/dL (0.2-1.0) H 2.4 mg/dL (0.2-1.0) H HgA1c, TSH Test 11/19/24 12:05 11/19/24 13:00 Hemoglobin A1c 5.8 % A1C (<5.7) H Thyroid Stimulating Hormone (TSH) 2.79 uIU/mL (0.55-4.78) Urinalysis Test 11/19/24 08:35 Urine Color Yellow (Yellow) Urine Clarity Clear (Clear) Urine pH 5.5 (5.0-9.0) Urine Specific [place] 1.017 (1.001-1.035) Urine Protein 1+ (Negative) H Urine Ketones Negative (Negative) Urine Blood 2+ /uL (Negative) H Urine Nitrite Negative (Negative) Urine Bilirubin Negative (Negative) Urine Urobilinogen Normal mg/dL (Negative) Urine Leukocyte Esterase Negative /uL (Negative) Urine RBC 33 /hpf (0 - 3) Urine Microscopic WBC 6 /HPF (0-3) H Urine Squamous Epithelial Cells Few /hpf (<5) Urine Bacteria None seen /hpf (None Seen) Urine Osmolality 518 mOsm/kg Urine Creatinine 104.97 mg/dL (30.0-125.0) Urine Protein/Creatinine Ratio 1.03 Urine Sodium 21 mmol/L (40-220) L Urine Glucose Normal mg/dL (Normal) Urine Total Protein 108.6 mg/dL (1-14) H Blood Gas Results Test 11/19/24 11:45 11/19/24 13:08 11/20/24 03:40 11/20/24 07:18 Arterial Blood pH 7.072 (7.350-7.450) 7.196 (7.350-7.450) 7.231 (7.350-7.450) 7.352 (7.350-7.450) FiO2 % 100.0 100.0 90.0 90.0 Labs and/or images reviewed: Labs reviewed by me, Image(s) reviewed by me Assessment/Plan Assessment/Plan Impression: -S/P cardiopulmonary arrest -Acute Hypoxic Respiratory Failure -Acute Decompensated Heart Failure -Hyperkalemia -Acute Kidney Injury/ VMN -Cardiogenic shock -Rule out aspiration PNA -Hx of Amphetamine use -NSTEMI type II Plan: Events: Persistent Hyperkalemia, Acceptable urine output. -Bumex gtt -Serial BMP -Continue Inotropic/Vasopressor therapy -Continue Zosyn -Cardiology consult -Potassium lowering agents -Nephrology consult: Recommendations reviewed -PUD/DVT prophylaxis -Continue vent settings -Repeat labs, abg, and cxr in am. Critical care time: 40min. Plan discussed with: Patient, Other (RN) My Orders Orders - AURELIO ZAMARRIPA NP Procedure Category Date Status Time Communication Order ORDERS 11/19/24 Transmitted 12:09 Norepinephrine 8 PHA 11/19/24 In Process Mg/250ml Kit 12:15 *[facility] CONS 11/19/24 Transmitted -[place] 14:36 Ventilator Orders RT 11/19/24 Transmitted 14:36 Epinephrine Hcl PHA 11/19/24 In Process 14:45 Piperacillin-Tazob PHA 11/19/24 In Process 3.375gm (Zosyn 3.375g 22:00 Pantoprazole PHA 11/20/24 In Process (Protonix) 10:00 Enoxaparin Sodium PHA 11/20/24 In Process (Lovenox) 10:00 Basic Metabolic Panel LAB 11/20/24 Transmitted 12:00 Basic Metabolic Panel LAB 11/20/24 Transmitted 18:00 Basic Metabolic Panel LAB 11/21/24 Verified 00:00 Basic Metabolic Panel LAB 11/21/24 Verified 06:00 Chest Portable XY 11/21/24 Transmitted 05:00 Chest Portable XY 11/22/24 Transmitted 05:00 Chest Portable XY 11/23/24 Transmitted 05:00 Complete Blood Count LAB 11/21/24 Verified 05:00 Complete Blood Count LAB 11/22/24 Verified 05:00 Complete Blood Count LAB 11/23/24 Verified 05:00 Date of Service: Nov 20, 2024 Billing Provider: AURELIO ZAMARRIPA NP Common Visit Codes: [id number] CARE 30-74 MIN AURELIO ZAMARRIPA NP Nov 20, 2024 08:49
[2024-11-20] MEDS: PANTOPRAZOLE 40 MG/10 ML VIAL INJ IV SCH (09:48)
[2024-11-20] MEDS: ENOXAPARIN SOD 40 MG/0.4 ML SYRINGE SC SCH (09:49)
[2024-11-20] MEDS: SODIUM ZIRCONIUM CYCL 10 GM PAK PO SCH ×2 (10:15→14:00)
[2024-11-20] MEDS: DOPamine 1600MCG/ML D5W 250 ML IV SCH (10:30)
[2024-11-20] MEDS: BUMETANIDE INJECTION 12.5 MG in GIVE UN-DILUTED 0 ML IV SCH (10:31)
[2024-11-20] MEDS: NOREPINEPHRINE BITARTRATE 32 MG in SODIUM CHL 0.9% 218 ML IV SCH (12:00)
--- NOTE | 2024-11-20 12:15 | DVHPN2 ---
Consult Progress Note Subjective Other Systems: The patient normal sinus rhythm with PVCs on cotton jammer Objective vital signs Vital Sign Date Time Temp Pulse Resp B/P (MAP) Pulse Ox O2 Delivery O2 Flow Rate FiO2 11/20/24 11:45 86/48 11/20/24 10:38 86 28 95 80 11/20/24 10:00 Mechanical Ventilator+ 11/20/24 09:18 100.0 212.0 11/20/24 02:01 0 Total Intake and Output 11/19/24 11/19/24 11/20/24 15:00 23:00 07:00 Intake Total 25 ml 86.641 ml 522.810 ml Output Total 950 ml Balance 25 ml 86.641 ml -427.190 ml medications Current Medications Medications Dose Ordered Sig/Dona Route Start Time Stop Time Status Last Admin Dose Admin Ondansetron HCl 4 mg Q4HP PRN IV 11/19/24 08:45 Morphine Sulfate 2 mg Q30M PRN IV 11/19/24 08:45 Docusate Sodium 100 mg BIDPRN PRN PO 11/19/24 08:45 Acetaminophen 650 mg Q6HP PRN PO 11/19/24 08:45 Nitroglycerin 0.4 mg Q5MINP PRN SL 11/19/24 08:45 Midazolam HCl 50 ml @ 1 mls/hr Q24H IV 11/19/24 09:15 11/20/24 06:01 13 MLS/HR Norepinephrine Bitartrate 250 ml @ 3.75 mls/hr Q24H IV 11/19/24 12:15 11/20/24 11:23 26.25 MLS/HR Epinephrine HCl 250 ml @ 7.5 mls/hr Q24H IV 11/19/24 14:45 Piperacillin Sod/ Tazobactam Sod 100 ml @ 25 mls/hr Q8HR IV 11/19/24 22:00 11/20/24 05:48 25 MLS/HR Vancomycin HCl 0 ml @ 0 mls/hr UD IV 11/19/24 15:00 Pantoprazole Sodium 40 mg DAILY IV 11/20/24 10:00 11/20/24 09:48 40 MG Enoxaparin Sodium 40 mg DAILY SC 11/20/24 10:00 11/20/24 09:49 40 MG Octreotide Acetate 100 mcg TID SUBCUT 11/19/24 22:00 11/20/24 06:12 100 MCG Vasopressin 20 units/Sodium Chloride 100 ml @ 12 mls/hr Q8H20M IV 11/19/24 17:00 11/20/24 04:03 12 MLS/HR Fentanyl Citrate 250 ml @ 2.5 mls/hr Q24H IV 11/20/24 01:30 11/20/24 01:43 2.5 MLS/HR Dopamine HCl/ Dextrose 250 ml @ 6.135 mls/ hr Q24H IV 11/20/24 09:45 11/20/24 10:30 15.338 MLS/HR Bumetanide 12.5 mg/Miscellaneous 50 ml @ 4 mls/hr [id number] IV 11/20/24 10:15 11/20/24 10:31 4 MLS/HR Zirconium Oxide 10 gm Q8HR PO 11/20/24 10:15 11/20/24 22:01 Norepinephrine Bitartrate 32 mg/ Sodium Chloride 250 ml @ 0.938 mls/ hr Q24H IV 11/20/24 12:00 UNV Examination: GENERAL:Abnormal, LUNGS:Abnormal (Mechanically ventilated), CVS:Normal, NEURO:Normal (Chemically sedated) laboratory and microbiology Laboratory Tests 11/20/24 02:54 Test 11/20/24 11:25 Range/Units Serum Glucose Pending Problem List/Assessment/Plan Problem List/Assessment/Plan Cardiopulmonary arrest status post CPR with ROSC [place], decompensated HFrEF, NYHA class IV NSTEMI Acute hypoxic respiratory failure Acute kidney injury Hyperkalemia Shock liver History of methamphetamine use Plan/Recommendations (Dr. Beatty): We will proceed with obtaining a transthoracic echocardiogram to evaluate cardiac function and wall motion. Continue with vasopressor therapy for hemodynamic support. Switch to Quad strength vasopressors given reduced EF. Strict intake and output, daily weights, maintain fluid restriction. The patient underwent a CTA and subsequently had cardiopulmonary arrest in which CPR was initiated immediately and ROSC was achieved within 4 minutes. Pupils reactive to light at time of assessment. CT angiography report was unable to evaluate for pulmonary embolism due to no contrast within the pulmonary arteries. D-dimer is noted to be elevated. The patient also has hyperkalemia and acute kidney injury at this time. We are awaiting final echocardiogram results. The patient may benefit from ischemic workup with improvement in electrolyte derangement and kidney function. In the meantime, continue with close cardiac surveillance. Further recommendations per clinical course and progression. Thank you for allowing us to care for this patient. Please call with any questions or concerns. Critical care time spent: 38 minutes. This medical document was created using an electronic medical record system with voice recognition software and computerized dictation system. Although this document has been carefully reviewed, there might still be some phonetic and typographical errors. Occasional wrong-word or ``sound-alike substitutions may have occurred due to the inherent limitations of voice recognition software. These areas are purely typographical due to imperfections of the software programs and do not reflect any compromise in the patient's medical care. Please read the chart carefully and recognize, using context, where these substitutions have occurred. Plan discussed with: Other (Bedside RN) Date of Service: Nov 20, 2024 Billing Provider: HEMA SCHWARZ Common Visit Codes: [id number] CARE 30-74 MIN HEMA SCHWARZ Nov 20, 2024 12:15
[2024-11-20 12:42] LABS: Chloride 103 mmol/L (98-107); Potassium 4.9 mmol/L (3.5-5.1); Sodium 141 mmol/L (136-145)
[2024-11-20 12:43] LABS: Anion Gap 11 (5-15); Carbon Dioxide 27 mmol/L (20-31)
[2024-11-20 12:44] LABS: Calcium 8.5 mg/dL (8.7-10.4)
[2024-11-20 12:48] LABS: BUN/Creatinine Ratio 21.6 (10.0-20.0); Blood Urea Nitrogen 57 mg/dL (9-23); Glucose 153 mg/dL (74-106)
[2024-11-20] MEDS ORDERED: AMIODARONE HCL (50 MG/ ML) 3 ML VIAL IV ONE (12:49)
[2024-11-20] MEDS: VANCOMYCIN 750MG KIT 100 ML IV ONE (12:56)
--- NOTE | 2024-11-20 13:26 | ECG ---
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
--- NOTE | 2024-11-20 15:39 | DVHPN2 ---
Progress Note Date Seen: Nov 20, 2024 Medical Necessity Reason Pt with a Central, PICC or Fol: No Subjective Review of Systems: RESPIRATORY:Abnormal Other Systems: Patient seen and examined by myself today in follow-up, patient remained intubated on ventilator Objective vital signs Vital Sign Date Time Temp Pulse Resp B/P (MAP) Pulse Ox O2 Delivery O2 Flow Rate FiO2 11/20/24 14:19 92 28 120/63 (82) 94 80 11/20/24 14:03 100.2 212.4 11/20/24 14:00 Mechanical Ventilator+ 11/20/24 02:01 0 Total Intake and Output 11/19/24 11/19/24 11/20/24 15:00 23:00 07:00 Intake Total 25 ml 86.641 ml 522.810 ml Output Total 950 ml Balance 25 ml 86.641 ml -427.190 ml medications Current Medications Medications Dose Ordered Sig/Dona Route Start Time Stop Time Status Last Admin Dose Admin Ondansetron HCl 4 mg Q4HP PRN IV 11/19/24 08:45 Morphine Sulfate 2 mg Q30M PRN IV 11/19/24 08:45 Docusate Sodium 100 mg BIDPRN PRN PO 11/19/24 08:45 Acetaminophen 650 mg Q6HP PRN PO 11/19/24 08:45 Nitroglycerin 0.4 mg Q5MINP PRN SL 11/19/24 08:45 Midazolam HCl 50 ml @ 1 mls/hr Q24H IV 11/19/24 09:15 11/20/24 12:43 Epinephrine HCl 250 ml @ 7.5 mls/hr Q24H IV 11/19/24 14:45 Piperacillin Sod/ Tazobactam Sod 100 ml @ 25 mls/hr Q8HR IV 11/19/24 22:00 11/20/24 14:26 Vancomycin HCl 0 ml @ 0 mls/hr UD IV 11/19/24 15:00 Pantoprazole Sodium 40 mg DAILY IV 11/20/24 10:00 11/20/24 09:48 Enoxaparin Sodium 40 mg DAILY SC 11/20/24 10:00 11/20/24 09:49 Octreotide Acetate 100 mcg TID SUBCUT 11/19/24 22:00 11/20/24 14:33 Vasopressin 20 units/Sodium Chloride 100 ml @ 12 mls/hr Q8H20M IV 11/19/24 17:00 11/20/24 12:37 Fentanyl Citrate 250 ml @ 2.5 mls/hr Q24H IV 11/20/24 01:30 11/20/24 01:43 Dopamine HCl/ Dextrose 250 ml @ 6.135 mls/ hr Q24H IV 11/20/24 09:45 11/20/24 10:30 Bumetanide 12.5 mg/Miscellaneous 50 ml @ 4 mls/hr [id number] IV 11/20/24 10:15 11/20/24 10:31 Norepinephrine Bitartrate 32 mg/ Sodium Chloride 250 ml @ 0.938 mls/ hr Q24H IV 11/20/24 12:00 11/20/24 12:00 Examination: LUNGS:Normal, CVS:Normal, MSK:Normal laboratory and microbiology Laboratory Tests 11/20/24 11:25 11/20/24 02:54 Test 11/20/24 11:25 Range/Units Serum Glucose 153 H 74-106 mg/dL Microbiology Date/Time Source Procedure Growth Status 11/20/24 04:00 Nose MRSA Screen - Final Complete 11/19/24 15:51 Blood Blood Culture - Preliminary Resulted 11/19/24 09:42 Sputum Expectorated Sputum Gram Stain Pending Resulted 11/19/24 09:42 Respiratory Culture - Preliminary Streptococcus Group B Resulted Problem List/Assessment/Plan Problem List/Assessment/Plan Acute kidney injury superimposed Chronic Kidney Disease secondary hemodynamic mediated, FeNa < 1% Acute respiratory failure, patient intubated on ventilator Congestive heart failure exacerbation Pneumonia Bacteremia Hyperkalemia Methamphetamine abuse NSTEMI Liver cirrhosis Jaundice Septic shock Mild proteinuria due to underlying chronic kidney disease Recommendations Kidney function slightly worsened today Increased urine output Hyperkalemia resolved Mayo catheter Strict I&Os Emergent medical treatment for hyperkalemia kidney ultrasound kidney ultrasound reported bilateral echogenic kidney IV pressors for blood pressure support Octreotide I agree with diuresis IV antibiotics Cardiology consult We will continue to follow Plan discussed with: Other My Orders My Orders Orders - TERESA DODD MD Procedure Category Date Status Time Hepatitis C Antibody LAB 11/19/24 In Process 16:27 Hepatitis B Surface LAB 11/19/24 In Process Antigen 16:27 Kidney US 11/19/24 Resulted 16:27 Octreotide Acetate PHA 11/19/24 In Process (Sandostatin) 22:00 Sodium Chl 0.9% PHA 11/19/24 In Process (So... W/Vasopressin 17:00 Give Un-Diluted PHA 11/20/24 In Process (Gi... W/Bumetanide 10:15 TERESA DODD MD Nov 20, 2024 15:39
--- NOTE | 2024-11-20 16:19 | DVHNC2 ---
Arterial Puncture Indication: Assess ventilatory status, Assess acid-base status Procedure: Sterile Preparation, Arterial Punct Obtained Location: Right Radial Informed consent obtained: Yes Risks/benefits/alt described: Yes Notes Ultrasound guidance: CPT 87475 Date of Service: Nov 20, 2024 Billing Provider: AURELIO ZAMARRIPA NP Common Visit Codes: PROCEDURE ONLY Procedure Codes: [id number] AURELIO ZAMARRIPA NP Nov 20, 2024 16:18
[2024-11-20 19:33] LABS: Chloride 101 mmol/L (98-107); Potassium 4.3 mmol/L (3.5-5.1); Sodium 142 mmol/L (136-145)
[2024-11-20 19:34] LABS: Anion Gap 12 (5-15); Carbon Dioxide 29 mmol/L (20-31)
[2024-11-20 19:35] LABS: Calcium 8.9 mg/dL (8.7-10.4)
[2024-11-20 19:40] LABS: BUN/Creatinine Ratio 24.7 (10.0-20.0)
[2024-11-20 20:27] LABS: Blood Urea Nitrogen 61 mg/dL (9-23); Glucose 179 mg/dL (74-106)
[2024-11-21] VITALS (107 sets, daily range): BP systolic 92–115; BP diastolic 51–70; PULSE 72–84; RESP 11–29; TEMP 98.2–99.1; O2SAT 90–98
[2024-11-21 00:56] LABS: Chloride 99 mmol/L (98-107); Potassium 4.2 mmol/L (3.5-5.1); Sodium 143 mmol/L (136-145)
[2024-11-21 00:57] LABS: Anion Gap 13 (5-15); Calcium 9.1 mg/dL (8.7-10.4); Carbon Dioxide 31 mmol/L (20-31)
[2024-11-21 01:02] LABS: BUN/Creatinine Ratio 26.8 (10.0-20.0); Blood Urea Nitrogen 63 mg/dL (9-23); Glucose 166 mg/dL (74-106)
[2024-11-21 03:52] LABS: Hematocrit 46.9 % (41.0-53.0); Hemoglobin 15.9 g/dL (13.5-17.5); Mean Corpuscular Hemoglobin 30.9 pg (28.0-32.0); Mean Corpuscular Volume 91.1 fL (80.0-100.0); Nucleated Red Blood Cells % 0.2 %
[2024-11-21 04:05] LABS: Anion Gap 14 (5-15); Calcium 9.0 mg/dL (8.7-10.4); Carbon Dioxide 30 mmol/L (20-31); Chloride 100 mmol/L (98-107); Potassium 3.8 mmol/L (3.5-5.1); Sodium 144 mmol/L (136-145)
[2024-11-21 04:11] LABS: BUN/Creatinine Ratio 28.8 (10.0-20.0)
[2024-11-21 04:13] LABS: Blood Urea Nitrogen 66 mg/dL (9-23); Glucose 160 mg/dL (74-106)
--- NOTE | 2024-11-21 05:49 | DVH ---
CHEST RADIOGRAPH Indication: PNA Technique: Single frontal view of the chest was obtained COMPARISON: XY CHEST PORTABLE on DOS: 11/20/24, CT CT ANGIO CHEST CONTRAST on DOS: 11/19/24, XY CHEST P ORTABLE on DOS: 11/19/24, XY CHEST PORTABLE on DOS: 11/19/24, XY CHEST PORTABLE on DOS: 11/20/24 FINDINGS: Lines and Tubes: The endotracheal tube terminates 7.9 cm above the pelon. The enteric tube courses b elow the left hemidiaphragm and the tip extends outside the field of view. Lungs: Stable prominent bilateral interstitial opacities. Interval development of a right upper lobe consolidation. Patchy left basilar airspace disease. Pleura: No effusion. No pneumothorax. Cardiomediastinal contours: Cardiomegaly. Bones: No acute osseous abnormality. IMPRESSION: 1. Lines and tubes in satisfactory position. No significant interval change.
[2024-11-21 07:33] LABS: Base Excess 7.3 mmol/L (-2.0-3.0)
--- NOTE | 2024-11-21 08:45 | DVHPN2 ---
Subjective Patient intubated and sedated. Reviewed: Care Plan, H&P, Labs, Medications Changes from previous H/P or p: No Changes General: Per HPI Objective Vitals Vital Signs Date Time Temp Pulse Resp B/P (MAP) Pulse Ox O2 Delivery O2 Flow Rate FiO2 11/21/24 08:00 28 97 Mechanical Ventilator+ 60 60 11/21/24 08:00 80 11/21/24 07:20 104/57 (73) 11/21/24 06:00 99.1 210.4 11/20/24 02:01 0 Intake/Output Intake and Output 11/21/24 07:00 Intake Total 1444.561 ml Output Total 7085 ml Balance -5640.439 ml IV Total 1444.561 ml Output Urine Total 7085 ml General Appearance: Other (Chemically sedated) HEENT: PERRLA Lungs: Normal air movement, Other (Mechanical Ventilation) Cardiovascular: Normal S1, Normal S2 Abdomen: Normal bowel sounds, Soft, No tenderness Genitourinary: No Apparent Abnormalities (Mayo catheter) Skin: Dry, Intact Psych/Mental Status: Other (Unable to assess) Medications Current Medications Medications Dose Ordered Sig/Dona Route Start Time Stop Time Status Last Admin Dose Admin Ondansetron HCl 4 mg Q4HP PRN IV 11/19/24 08:45 Docusate Sodium 100 mg BIDPRN PRN PO 11/19/24 08:45 Acetaminophen 650 mg Q6HP PRN PO 11/19/24 08:45 Nitroglycerin 0.4 mg Q5MINP PRN SL 11/19/24 08:45 Midazolam HCl 50 ml @ 1 mls/hr Q24H IV 11/19/24 09:15 11/20/24 23:57 5 MLS/HR Epinephrine HCl 250 ml @ 7.5 mls/hr Q24H IV 11/19/24 14:45 Piperacillin Sod/ Tazobactam Sod 100 ml @ 25 mls/hr Q8HR IV 11/19/24 22:00 11/21/24 05:28 25 MLS/HR Vancomycin HCl 0 ml @ 0 mls/hr UD IV 11/19/24 15:00 Pantoprazole Sodium 40 mg DAILY IV 11/20/24 10:00 11/20/24 09:48 40 MG Enoxaparin Sodium 40 mg DAILY SC 11/20/24 10:00 11/20/24 09:49 40 MG Octreotide Acetate 100 mcg TID SUBCUT 11/19/24 22:00 11/21/24 05:29 100 MCG Vasopressin 20 units/Sodium Chloride 100 ml @ 12 mls/hr Q8H20M IV 11/19/24 17:00 11/20/24 20:45 9 MLS/HR Fentanyl Citrate 250 ml @ 2.5 mls/hr Q24H IV 11/20/24 01:30 11/20/24 01:43 2.5 MLS/HR Dopamine HCl/ Dextrose 250 ml @ 6.135 mls/ hr Q24H IV 11/20/24 09:45 11/20/24 21:33 24.54 MLS/HR Bumetanide 12.5 mg/Miscellaneous 50 ml @ 4 mls/hr [id number] IV 11/20/24 10:15 11/20/24 19:40 4 MLS/HR Norepinephrine Bitartrate 32 mg/ Sodium Chloride 250 ml @ 0.938 mls/ hr Q24H IV 11/20/24 12:00 11/20/24 12:00 7.5 MLS/HR Laboratory Results Laboratory Tests 11/21/24 03:07 Chemistry Test 11/20/24 11:25 11/20/24 19:04 11/21/24 00:23 11/21/24 03:07 Calcium Level 8.5 mg/dL (8.7-10.4) L 8.9 mg/dL (8.7-10.4) 9.1 mg/dL (8.7-10.4) 9.0 mg/dL (8.7-10.4) Urinalysis Test 11/19/24 08:35 Urine Color Yellow (Yellow) Urine Clarity Clear (Clear) Urine pH 5.5 (5.0-9.0) Urine Specific [place] 1.017 (1.001-1.035) Urine Protein 1+ (Negative) H Urine Ketones Negative (Negative) Urine Blood 2+ /uL (Negative) H Urine Nitrite Negative (Negative) Urine Bilirubin Negative (Negative) Urine Urobilinogen Normal mg/dL (Negative) Urine Leukocyte Esterase Negative /uL (Negative) Urine RBC 33 /hpf (0 - 3) Urine Microscopic WBC 6 /HPF (0-3) H Urine Squamous Epithelial Cells Few /hpf (<5) Urine Bacteria None seen /hpf (None Seen) Urine Osmolality 518 mOsm/kg Urine Creatinine 104.97 mg/dL (30.0-125.0) Urine Protein/Creatinine Ratio 1.03 Urine Sodium 21 mmol/L (40-220) L Urine Glucose Normal mg/dL (Normal) Urine Total Protein 108.6 mg/dL (1-14) H Blood Gas Results Test 11/21/24 06:49 Arterial Blood pH 7.505 (7.350-7.450) FiO2 % 60.0 Microbiology Microbiology Date/Time Source Procedure Growth Status 11/20/24 04:00 Nose MRSA Screen - Final Complete 11/19/24 15:51 Blood Blood Culture - Preliminary Resulted 11/19/24 09:42 Sputum Expectorated Sputum Gram Stain - Final Resulted 11/19/24 09:42 Respiratory Culture - Preliminary Streptococcus Group B Resulted Labs and/or images reviewed: Labs reviewed by me, Image(s) reviewed by me Assessment/Plan Assessment/Plan Impression: -S/P cardiopulmonary arrest -Acute Hypoxic Respiratory Failure -Acute Decompensated Heart Failure -Hyperkalemia -Acute Kidney Injury/ VMN -Cardiogenic shock -Hx of Amphetamine use -NSTEMI type II -aspiration pneumonia Plan: Events: Patient with clinical improvement. Hyperkalemia resolved. Excellent urine output. Patient now off vasopressin, with norepinephrine drip being weaned. -Bumex gtt, defer to Nephrology for weaning or cessation of he makes drip -continue dopamine drip, weaned off of norepinephrine drip -antibiotic therapy: Stop vancomycin given growth of Gram-negative rods as well as Streptococcus B. continue Zosyn at this time -cardiology consultation: Recommendations reviewed -Nephrology consult: Recommendations reviewed -PUD/DVT prophylaxis -Continue vent settings -Repeat labs, abg, and cxr in am. Critical care time spent with patient discussing and formulating plan of care: 40 minutes. This does not include time spent performing procedures. This medical document was created using an electronic medical record system with [employer] system. Although this document has been carefully reviewed, there may still be some phonetic and typographical errors. These areas are purely typographical due to imperfections of the software programs, and do not reflect any compromise in the patient's medical care. Plan discussed with: Patient, Other (RN) My Orders Orders - AURELIO ZAMARRIPA HEDDLER TIER Procedure Category Date Status Time Dopamine 1600mcg/Ml PHA 11/20/24 In Process D5W 09:45 Abg W/ Co-Ox RT 11/21/24 Logged 06:00 Nutritional PHA 11/21/24 Verified Supplements (Jevity 08:45 Date of Service: Nov 21, 2024 Billing Provider: AURELIO ZAMARRIPA NP Common Visit Codes: [id number] CARE 30-74 MIN AURELIO ZAMARRIPA NP Nov 21, 2024 08:45
[2024-11-21] MEDS: BUMETANIDE INJECTION 12.5 MG in GIVE UN-DILUTED 0 ML IV SCH (10:00)
--- NOTE | 2024-11-21 10:22 | DVHPN2 ---
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 Objective vital signs Vital Sign Date Time Temp Pulse Resp B/P (MAP) Pulse Ox O2 Delivery O2 Flow Rate FiO2 11/21/24 10:00 28 96 Mechanical Ventilator+ 55 55 11/21/24 10:00 75 11/21/24 09:15 95/59 (71) 97/54 (68) 11/21/24 07:30 98.5 98.5 11/20/24 02:01 0 Total Intake and Output 11/20/24 11/20/24 11/21/24 15:00 23:00 07:00 Intake Total 447.634 ml 509.834 ml 487.093 ml Output Total 2885 ml 4200 ml Balance 447.634 ml -2375.166 ml -3712.907 ml medications Current Medications Medications Dose Ordered Sig/Dona Route Start Time Stop Time Status Last Admin Dose Admin Ondansetron HCl 4 mg Q4HP PRN IV 11/19/24 08:45 Docusate Sodium 100 mg BIDPRN PRN PO 11/19/24 08:45 Acetaminophen 650 mg Q6HP PRN PO 11/19/24 08:45 Nitroglycerin 0.4 mg Q5MINP PRN SL 11/19/24 08:45 Midazolam HCl 50 ml @ 1 mls/hr Q24H IV 11/19/24 09:15 11/21/24 09:14 5 MLS/HR Epinephrine HCl 250 ml @ 7.5 mls/hr Q24H IV 11/19/24 14:45 Piperacillin Sod/ Tazobactam Sod 100 ml @ 25 mls/hr Q8HR IV 11/19/24 22:00 11/21/24 05:28 25 MLS/HR Pantoprazole Sodium 40 mg DAILY IV 11/20/24 10:00 11/21/24 09:00 40 MG Enoxaparin Sodium 40 mg DAILY SC 11/20/24 10:00 11/21/24 09:00 40 MG Octreotide Acetate 100 mcg TID SUBCUT 11/19/24 22:00 11/21/24 05:29 100 MCG Fentanyl Citrate 250 ml @ 2.5 mls/hr Q24H IV 11/20/24 01:30 11/20/24 01:43 2.5 MLS/HR Dopamine HCl/ Dextrose 250 ml @ 6.135 mls/ hr Q24H IV 11/20/24 09:45 11/20/24 21:33 24.54 MLS/HR Norepinephrine Bitartrate 32 mg/ Sodium Chloride 250 ml @ 0.938 mls/ hr Q24H IV 11/20/24 12:00 11/20/24 12:00 7.5 MLS/HR Enteral Nutritional Formula 1,000 ml 30ML/HR GT 11/21/24 08:45 Bumetanide 12.5 mg/Miscellaneous 50 ml @ 2 mls/hr Q24H IV 11/21/24 10:00 UNV Examination: GENERAL:Abnormal, LUNGS:Abnormal (Mechanically ventilated), CVS:Normal, NEURO:Abnormal (Chemically sedated) laboratory and microbiology Laboratory Tests 11/21/24 03:07 Test 11/21/24 03:07 Range/Units Serum Glucose 160 H 74-106 mg/dL Problem List/Assessment/Plan Problem List/Assessment/Plan Cardiopulmonary arrest status post CPR with ROSC [place], decompensated HFrEF, NYHA class IV NSTEMI Acute hypoxic respiratory failure Acute kidney injury Bacteremia Hyperkalemia Shock liver History of methamphetamine use Plan/Recommendations (Dr. Beatty): We will proceed with obtaining a transthoracic echocardiogram to evaluate cardiac function and wall motion. Continue with vasopressor therapy for hemodynamic support. Switch to Quad strength vasopressors given reduced EF. Strict intake and output, daily weights, maintain fluid restriction. The patient underwent a CTA and subsequently had cardiopulmonary arrest in which CPR was initiated immediately and ROSC was achieved within [address] angiography report was unable to evaluate for pulmonary embolism due to no contrast within the pulmonary arteries. D-dimer is noted to be elevated. Hyperkalemia has improved. Creatinine levels improved but still remain elevated. We are awaiting final echocardiogram results. Preliminary blood cultures are positive. The patient may benefit from eventual ischemic workup. In the meantime, continue with close cardiac surveillance. Further recommendations per clinical course and progression. Thank you for allowing us to care for this patient. Please call with any questions or concerns. Critical care time spent: 38 minutes. This medical document was created using an electronic medical record system with voice recognition software and computerized dictation system. Although this document has been carefully reviewed, there might still be some phonetic and typographical errors. Occasional wrong-word or ``sound-alike substitutions may have occurred due to the inherent limitations of voice recognition software. These areas are purely typographical due to imperfections of the software programs and do not reflect any compromise in the patient's medical care. Please read the chart carefully and recognize, using context, where these substitutions have occurred. Plan discussed with: Other (Bedside RN) Date of Service: Nov 21, 2024 Billing Provider: HEMA SCHWARZ Common Visit Codes: [id number] CARE 30-74 MIN HEMA SCHWARZ Nov 21, 2024 10:22
--- NOTE | 2024-11-21 10:37 | DVHPN2 ---
Progress Note Date Seen: Nov 21, 2024 Medical Necessity Reason Pt with a Central, PICC or Fol: No Subjective Review of Systems: RESPIRATORY:Abnormal Other Systems: Patient seen and examined by myself today in follow-up, patient remained intubated on ventilator Objective vital signs Vital Sign Date Time Temp Pulse Resp B/P (MAP) Pulse Ox O2 Delivery O2 Flow Rate FiO2 11/21/24 10:00 28 96 Mechanical Ventilator+ 55 55 11/21/24 10:00 75 11/21/24 10:00 96/53 11/21/24 07:30 98.5 98.5 11/20/24 02:01 0 Total Intake and Output 11/20/24 11/20/24 11/21/24 15:00 23:00 07:00 Intake Total 447.634 ml 509.834 ml 487.093 ml Output Total 2885 ml 4200 ml Balance 447.634 ml -2375.166 ml -3712.907 ml medications Current Medications Medications Dose Ordered Sig/Dona Route Start Time Stop Time Status Last Admin Dose Admin Ondansetron HCl 4 mg Q4HP PRN IV 11/19/24 08:45 Docusate Sodium 100 mg BIDPRN PRN PO 11/19/24 08:45 Acetaminophen 650 mg Q6HP PRN PO 11/19/24 08:45 Nitroglycerin 0.4 mg Q5MINP PRN SL 11/19/24 08:45 Midazolam HCl 50 ml @ 1 mls/hr Q24H IV 11/19/24 09:15 11/21/24 09:14 5 MLS/HR Epinephrine HCl 250 ml @ 7.5 mls/hr Q24H IV 11/19/24 14:45 Piperacillin Sod/ Tazobactam Sod 100 ml @ 25 mls/hr Q8HR IV 11/19/24 22:00 11/21/24 05:28 25 MLS/HR Pantoprazole Sodium 40 mg DAILY IV 11/20/24 10:00 11/21/24 09:00 40 MG Enoxaparin Sodium 40 mg DAILY SC 11/20/24 10:00 11/21/24 09:00 40 MG Octreotide Acetate 100 mcg TID SUBCUT 11/19/24 22:00 11/21/24 05:29 100 MCG Fentanyl Citrate 250 ml @ 2.5 mls/hr Q24H IV 11/20/24 01:30 11/20/24 01:43 2.5 MLS/HR Dopamine HCl/ Dextrose 250 ml @ 6.135 mls/ hr Q24H IV 11/20/24 09:45 11/20/24 21:33 24.54 MLS/HR Norepinephrine Bitartrate 32 mg/ Sodium Chloride 250 ml @ 0.938 mls/ hr Q24H IV 11/20/24 12:00 11/20/24 12:00 7.5 MLS/HR Enteral Nutritional Formula 1,000 ml 30ML/HR GT 11/21/24 08:45 Bumetanide 12.5 mg/Miscellaneous 50 ml @ 2 mls/hr Q24H IV 11/21/24 10:00 11/21/24 10:00 2 MLS/HR Examination: LUNGS:Normal, CVS:Normal, MSK:Normal laboratory and microbiology Laboratory Tests 11/21/24 03:07 Test 11/21/24 03:07 Range/Units Serum Glucose 160 H 74-106 mg/dL Microbiology Date/Time Source Procedure Growth Status 11/20/24 04:00 Nose MRSA Screen - Final Complete 11/19/24 15:51 Blood Blood Culture - Preliminary Resulted 11/19/24 09:42 Sputum Expectorated Sputum Gram Stain - Final Complete 11/19/24 09:42 Respiratory Culture - Final Streptococcus Group B Complete Problem List/Assessment/Plan Problem List/Assessment/Plan Acute kidney injury superimposed Chronic Kidney Disease secondary hemodynamic mediated, FeNa < 1% Acute respiratory failure, patient intubated on ventilator Congestive heart failure exacerbation Pneumonia Bacteremia Hyperkalemia Methamphetamine abuse NSTEMI Liver cirrhosis Jaundice Septic shock Mild proteinuria due to underlying chronic kidney disease Recommendations Kidney function is improving Increased urine output Hyperkalemia resolved Mayo catheter Strict I&Os Decrease Bumex IV drip 0.5 mg/hr kidney ultrasound kidney ultrasound reported bilateral echogenic kidney IV pressors for blood pressure support Octreotide IV antibiotics Cardiology consult We will continue to follow Plan discussed with: Other (Nurse) My Orders My Orders Orders - TERESA DODD MD Procedure Category Date Status Time Give Un-Diluted PHA 11/21/24 In Process (Gi... W/Bumetanide 10:00 Dietary Evaluation Review Comments: Nutrition Recommendation: 1) TF Jevity 1.2Cal @ 70ml/hr x 24hr (goal rate) along with Pro-stat 1 pk daily. Start @ 20ml/hr, increase 10ml/hr Q4H until goal is reached. TF @ goal volume along with Pro-stat & Propofol provide 2116 kcal (100% energy needs), 108 gm protein (100% protein needs), 1356 ml free water. 2) Water flush 190 ml Q6H if allowed, adjust PRN 3) TPN if NPO >7 days 4) Monitor NPO status, lab values, wt trend, I/O Expected Outcomes/Goals: To meet >75% estimated needs Lab values to improve Fu 2-3 days TERESA DODD MD Nov 21, 2024 10:37
[2024-11-21 11:10] LABS: Hepatitis B Surface Antigen Negative (Negative)
[2024-11-21 11:57] LABS: Hepatitis C Antibody Positive (Negative)
[2024-11-22] VITALS (107 sets, daily range): BP systolic 73–150; BP diastolic 52–84; PULSE 62–115; RESP 17–28; TEMP 77.7–102.9; O2SAT 90–97
[2024-11-22 03:51] LABS: Hematocrit 50.1 % (41.0-53.0); Hemoglobin 17.3 g/dL (13.5-17.5); Mean Corpuscular Hemoglobin 31.4 pg (28.0-32.0); Mean Corpuscular Volume 90.8 fL (80.0-100.0); Nucleated Red Blood Cells % 0.1 %
[2024-11-22 04:55] LABS: Albumin 4.1 g/dL (3.2-4.8); Alkaline Phosphatase 92 U/L (46-116); Anion Gap 12 (5-15); BUN/Creatinine Ratio 29.9 (10.0-20.0); Calcium 9.5 mg/dL (8.7-10.4); Chloride 103 mmol/L (98-107); Potassium 3.5 mmol/L (3.5-5.1); Total Protein 6.9 g/dL (5.7-8.2)
[2024-11-22 05:09] LABS: Alanine Aminotransferase 2370 U/L (7-40); Bilirubin, Total 3.0 mg/dL (0.2-1.0); Blood Urea Nitrogen 64 mg/dL (9-23); Carbon Dioxide 36 mmol/L (20-31); Glucose 151 mg/dL (74-106); Sodium 151 mmol/L (136-145)
--- NOTE | 2024-11-22 05:49 | DVH ---
CHEST RADIOGRAPH Indication: PNA Technique: Single frontal view of the chest was obtained COMPARISON: XY CHEST PORTABLE on DOS: 11/21/24, XY CHEST PORTABLE on DOS: 11/20/24, CT CT ANGIO CHEST C ONTRAST on DOS: 11/19/24, XY CHEST PORTABLE on DOS: 11/19/24, XY CHEST PORTABLE on DOS: 11/19/24 FINDINGS: Lines and Tubes: Unchanged. Lungs: Clear Pleura: No effusion. No pneumothorax. Cardiomediastinal contours: Unremarkable Bones: Unremarkable IMPRESSION: 1. No acute cardiopulmonary disease. 2. Lines and tubes unchanged.
[2024-11-22 06:14] LABS: Base Excess 12.9 mmol/L (-2.0-3.0)
[2024-11-22] MEDS: D5W 5% 1,000 ML IV SCH (09:28)
[2024-11-22] MEDS: ACETAMINOPHEN 325 MG TAB PO PRN (09:44)
--- NOTE | 2024-11-22 10:15 | DVHPN2 ---
Progress Note Date Seen: Nov 22, 2024 Medical Necessity Reason Pt with a Central, PICC or Fol: No Subjective Review of Systems: RESPIRATORY:Abnormal Other Systems: Patient seen and examined by myself today in follow-up, patient remained intubated on ventilator Objective vital signs Vital Sign Date Time Temp Pulse Resp B/P (MAP) Pulse Ox O2 Delivery O2 Flow Rate FiO2 11/22/24 09:44 122/55 11/22/24 09:44 102.9 11/22/24 09:06 92 28 95 45 11/22/24 06:00 Mechanical Ventilator+ Total Intake and Output 11/21/24 11/21/24 11/22/24 15:00 23:00 07:00 Intake Total 252.084 ml 642.854 ml 312.386 ml Output Total 3575 ml 2550 ml Balance 252.084 ml -2932.146 ml -2237.614 ml medications Current Medications Medications Dose Ordered Sig/Dona Route Start Time Stop Time Status Last Admin Dose Admin Ondansetron HCl 4 mg Q4HP PRN IV 11/19/24 08:45 Docusate Sodium 100 mg BIDPRN PRN PO 11/19/24 08:45 Acetaminophen 650 mg Q6HP PRN PO 11/19/24 08:45 11/22/24 09:44 650 MG Nitroglycerin 0.4 mg Q5MINP PRN SL 11/19/24 08:45 Midazolam HCl 50 ml @ 1 mls/hr Q24H IV 11/19/24 09:15 11/22/24 09:44 5 MLS/HR Epinephrine HCl 250 ml @ 7.5 mls/hr Q24H IV 11/19/24 14:45 Piperacillin Sod/ Tazobactam Sod 100 ml @ 25 mls/hr Q8HR IV 11/19/24 22:00 11/22/24 05:37 25 MLS/HR Pantoprazole Sodium 40 mg DAILY IV 11/20/24 10:00 11/22/24 09:03 40 MG Enoxaparin Sodium 40 mg DAILY SC 11/20/24 10:00 11/22/24 09:03 40 MG Octreotide Acetate 100 mcg TID SUBCUT 11/19/24 22:00 11/22/24 05:37 100 MCG Fentanyl Citrate 250 ml @ 2.5 mls/hr Q24H IV 11/20/24 01:30 11/21/24 14:14 7.5 MLS/HR Dopamine HCl/ Dextrose 250 ml @ 6.135 mls/ hr Q24H IV 11/20/24 09:45 11/22/24 05:45 6.135 MLS/HR Norepinephrine Bitartrate 32 mg/ Sodium Chloride 250 ml @ 0.938 mls/ hr Q24H IV 11/20/24 12:00 11/21/24 17:59 6.563 MLS/HR Enteral Nutritional Formula 1,000 ml 30ML/HR GT 11/21/24 08:45 Dextrose 1,000 ml @ 100 mls/hr Q10H IV 11/22/24 09:15 11/22/24 09:28 100 MLS/HR Examination: LUNGS:Normal, CVS:Normal, MSK:Normal laboratory and microbiology Laboratory Tests 11/22/24 04:00 11/22/24 03:15 Test 11/22/24 04:00 Range/Units Serum Glucose 151 H 74-106 mg/dL Microbiology Date/Time Source Procedure Growth Status 11/20/24 04:00 Nose MRSA Screen - Final Complete 11/19/24 15:51 Blood Blood Culture - Preliminary Resulted 11/19/24 09:42 Sputum Expectorated Sputum Gram Stain - Final Complete 11/19/24 09:42 Respiratory Culture - Final Streptococcus Group B Complete Problem List/Assessment/Plan Problem List/Assessment/Plan Acute kidney injury superimposed Chronic Kidney Disease secondary hemodynamic mediated, FeNa < 1% Acute respiratory failure, patient intubated on ventilator Congestive heart failure exacerbation Pneumonia Bacteremia Hypokalemia Methamphetamine abuse NSTEMI Liver cirrhosis Jaundice Septic shock Mild proteinuria due to underlying chronic kidney disease Hyponatremia due to excessive water loss Recommendations Kidney function is improving Increased urine output Hyperkalemia resolved Mayo catheter Strict I&Os DC Bumex IVF D5W 100 cc/hour KCL replacement kidney ultrasound kidney ultrasound reported bilateral echogenic kidney IV pressors for blood pressure support Octreotide IV antibiotics Cardiology consult We will continue to follow Plan discussed with: Other (Nurse) My Orders My Orders Orders - TERESA DODD MD Procedure Category Date Status Time D5w 5% (Dextrose 5%) PHA 11/22/24 In Process 09:15 Dietary Evaluation Review Comments: Nutrition Recommendation: 1) TF Jevity 1.2Cal @ 70ml/hr x 24hr (goal rate) along with Pro-stat 1 pk daily. Start @ 20ml/hr, increase 10ml/hr Q4H until goal is reached. TF @ goal volume along with Pro-stat & Propofol provide 2116 kcal (100% energy needs), 108 gm protein (100% protein needs), 1356 ml free water. 2) Water flush 190 ml Q6H if allowed, adjust PRN 3) TPN if NPO >7 days 4) Monitor NPO status, lab values, wt trend, I/O Expected Outcomes/Goals: To meet >75% estimated needs Lab values to improve Fu 2-3 days TERESA DODD MD Nov 22, 2024 10:15
--- NOTE | 2024-11-22 12:19 | DVHPN2 ---
Consult Progress Note Subjective Other Systems: Patient in normal sinus rhythm with depressed T-waves on classroom monitor. Patient remains chemically sedated and mechanically ventilated Objective vital signs Vital Sign Date Time Temp Pulse Resp B/P (MAP) Pulse Ox O2 Delivery O2 Flow Rate FiO2 11/22/24 11:15 100.4 71 28 108/75 (86) 212.7 113/64 (80) 11/22/24 11:08 96 45 11/22/24 10:00 Mechanical Ventilator+ Total Intake and Output 11/21/24 11/21/24 11/22/24 15:00 23:00 07:00 Intake Total 252.084 ml 642.854 ml 337.584 ml Output Total 3575 ml 2550 ml Balance 252.084 ml -2932.146 ml -2212.416 ml medications Current Medications Medications Dose Ordered Sig/Dona Route Start Time Stop Time Status Last Admin Dose Admin Ondansetron HCl 4 mg Q4HP PRN IV 11/19/24 08:45 Docusate Sodium 100 mg BIDPRN PRN PO 11/19/24 08:45 Acetaminophen 650 mg Q6HP PRN PO 11/19/24 08:45 11/22/24 09:44 650 MG Nitroglycerin 0.4 mg Q5MINP PRN SL 11/19/24 08:45 Midazolam HCl 50 ml @ 1 mls/hr Q24H IV 11/19/24 09:15 11/22/24 09:44 5 MLS/HR Epinephrine HCl 250 ml @ 7.5 mls/hr Q24H IV 11/19/24 14:45 Piperacillin Sod/ Tazobactam Sod 100 ml @ 25 mls/hr Q8HR IV 11/19/24 22:00 11/22/24 05:37 25 MLS/HR Pantoprazole Sodium 40 mg DAILY IV 11/20/24 10:00 11/22/24 09:03 40 MG Enoxaparin Sodium 40 mg DAILY SC 11/20/24 10:00 11/22/24 09:03 40 MG Octreotide Acetate 100 mcg TID SUBCUT 11/19/24 22:00 11/22/24 05:37 100 MCG Fentanyl Citrate 250 ml @ 2.5 mls/hr Q24H IV 11/20/24 01:30 11/21/24 14:14 7.5 MLS/HR Dopamine HCl/ Dextrose 250 ml @ 6.135 mls/ hr Q24H IV 11/20/24 09:45 11/22/24 05:45 6.135 MLS/HR Norepinephrine Bitartrate 32 mg/ Sodium Chloride 250 ml @ 0.938 mls/ hr Q24H IV 11/20/24 12:00 11/21/24 17:59 6.563 MLS/HR Enteral Nutritional Formula 1,000 ml 30ML/HR GT 11/21/24 08:45 Dextrose 1,000 ml @ 100 mls/hr Q10H IV 11/22/24 09:15 11/22/24 09:28 100 MLS/HR Potassium Chloride 100 ml @ 50 mls/hr Q2H IV 11/22/24 10:15 11/22/24 14:14 Examination: GENERAL:Abnormal, LUNGS:Abnormal (Mechanically ventilated), CVS:Abnormal (Normal sinus rhythm with depressed T-waves on classroom monitor), NEURO:Abnormal (Chemically sedated) laboratory and microbiology Laboratory Tests 11/22/24 04:00 11/22/24 03:15 Test 11/22/24 04:00 Range/Units Serum Glucose 151 H 74-106 mg/dL Problem List/Assessment/Plan Problem List/Assessment/Plan Cardiopulmonary arrest status post CPR with ROSC [place], decompensated HFrEF, NYHA class IV NSTEMI Acute hypoxic respiratory failure Acute kidney injury Bacteremia Hyperkalemia Shock liver History of methamphetamine use Plan/Recommendations (Dr. Beatty): We will proceed with obtaining a transthoracic echocardiogram to evaluate cardiac function and wall motion. Continue with vasopressor therapy for hemodynamic support. Switch to Quad strength vasopressors given reduced EF. Strict intake and output, daily weights, maintain fluid restriction. The patient underwent a CTA and subsequently had cardiopulmonary arrest in which CPR was initiated immediately and ROSC was achieved within [address] angiography report was unable to evaluate for pulmonary embolism due to no contrast within the pulmonary arteries. D-dimer is noted to be elevated. Hyperkalemia has improved. Creatinine levels improved but still remain elevated. We are awaiting final echocardiogram results. Preliminary blood cultures are positive. The patient may benefit from eventual ischemic workup. In the meantime, continue with close cardiac surveillance. Further recommendations per clinical course and progression. Thank you for allowing us to care for this patient. Please call with any questions or concerns. Critical care time spent: 38 minutes. This medical document was created using an electronic medical record system with voice recognition software and computerized dictation system. Although this document has been carefully reviewed, there might still be some phonetic and typographical errors. Occasional wrong-word or ``sound-alike substitutions may have occurred due to the inherent limitations of voice recognition software. These areas are purely typographical due to imperfections of the software programs and do not reflect any compromise in the patient's medical care. Please read the chart carefully and recognize, using context, where these substitutions have occurred. Plan discussed with: Other (Bedside RN) Dietary Evaluation Review Comments: Nutrition Recommendation: 1) TF Jevity 1.2Cal @ 70ml/hr x 24hr (goal rate) along with Pro-stat 1 pk daily. Start @ 20ml/hr, increase 10ml/hr Q4H until goal is reached. TF @ goal volume along with Pro-stat & Propofol provide 2116 kcal (100% energy needs), 108 gm protein (100% protein needs), 1356 ml free water. 2) Water flush 190 ml Q6H if allowed, adjust PRN 3) TPN if NPO >7 days 4) Monitor NPO status, lab values, wt trend, I/O Expected Outcomes/Goals: To meet >75% estimated needs Lab values to improve Fu 2-3 days Date of Service: Nov 22, 2024 Billing Provider: HEMA SCHWARZ Common Visit Codes: [id number] CARE 30-74 MIN HEMA SCHWARZ Nov 22, 2024 12:19
--- NOTE | 2024-11-22 13:22 | DVHPN2 ---
Progress Note - Dictate Date Seen: Nov 22, 2024 Medical Necessity Reason Pt with a Central, PICC or Fol: No vital signs Vital Sign Date Time Temp Pulse Resp B/P (MAP) Pulse Ox O2 Delivery O2 Flow Rate FiO2 11/22/24 12:00 28 93 Mechanical Ventilator+ 45 45 11/22/24 12:00 65 11/22/24 11:15 100.4 108/75 (86) 212.7 113/64 (80) Total Intake and Output 11/21/24 11/21/24 11/22/24 15:00 23:00 07:00 Intake Total 252.084 ml 642.854 ml 337.584 ml Output Total 3575 ml 2550 ml Balance 252.084 ml -2932.146 ml -2212.416 ml medications Current Medications Medications Dose Ordered Sig/Dona Route Start Time Stop Time Status Last Admin Dose Admin Ondansetron HCl 4 mg Q4HP PRN IV 11/19/24 08:45 Docusate Sodium 100 mg BIDPRN PRN PO 11/19/24 08:45 Acetaminophen 650 mg Q6HP PRN PO 11/19/24 08:45 11/22/24 09:44 650 MG Nitroglycerin 0.4 mg Q5MINP PRN SL 11/19/24 08:45 Midazolam HCl 50 ml @ 1 mls/hr Q24H IV 11/19/24 09:15 11/22/24 09:44 5 MLS/HR Epinephrine HCl 250 ml @ 7.5 mls/hr Q24H IV 11/19/24 14:45 Piperacillin Sod/ Tazobactam Sod 100 ml @ 25 mls/hr Q8HR IV 11/19/24 22:00 11/22/24 05:37 25 MLS/HR Pantoprazole Sodium 40 mg DAILY IV 11/20/24 10:00 11/22/24 09:03 40 MG Enoxaparin Sodium 40 mg DAILY SC 11/20/24 10:00 11/22/24 09:03 40 MG Octreotide Acetate 100 mcg TID SUBCUT 11/19/24 22:00 11/22/24 05:37 100 MCG Fentanyl Citrate 250 ml @ 2.5 mls/hr Q24H IV 11/20/24 01:30 11/21/24 14:14 7.5 MLS/HR Dopamine HCl/ Dextrose 250 ml @ 6.135 mls/ hr Q24H IV 11/20/24 09:45 11/22/24 05:45 6.135 MLS/HR Norepinephrine Bitartrate 32 mg/ Sodium Chloride 250 ml @ 0.938 mls/ hr Q24H IV 11/20/24 12:00 11/21/24 17:59 6.563 MLS/HR Enteral Nutritional Formula 1,000 ml 30ML/HR GT 11/21/24 08:45 Dextrose 1,000 ml @ 100 mls/hr Q10H IV 11/22/24 09:15 11/22/24 09:28 100 MLS/HR Potassium Chloride 100 ml @ 50 mls/hr Q2H IV 11/22/24 10:15 11/22/24 14:14 laboratory and microbiology Laboratory Tests 11/22/24 04:00 11/22/24 03:15 Test 11/22/24 04:00 Range/Units Serum Glucose 151 H 74-106 mg/dL Assessment/Plan s/p cardiac arrest acute resp failure sepsis delirium 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 Start @ 20ml/hr, increase 10ml/hr Q4H until goal is reached. TF @ goal volume along with Pro-stat & Propofol provide 2116 kcal (100% energy needs), 108 gm protein (100% protein needs), 1356 ml free water. 2) Water flush 190 ml Q6H if allowed, adjust PRN 3) TPN if NPO >7 days 4) Monitor NPO status, lab values, wt trend, I/O Expected Outcomes/Goals: To meet >75% estimated needs Lab values to improve Fu 2-3 days Plan discussed with: Other (rn) SHERWIN MOORE MD Nov 22, 2024 13:22
[2024-11-22] MEDS: POTASSIUM CHL 20MEQ/100ML 100 ML IV SCH (13:35)
--- NOTE | 2024-11-22 18:01 | DVHSR ---
APPROVED REPORT EXAM: Two-dimensional and M-mode echocardiogram with Doppler and color Doppler. Blood Pressure: 110/78 mmHg INDICATION Possible CHF Exacerbation Elevated Trops RISK FACTORS Height: 5' 10", Weight: 180 DIMENSIONS LVDd6.4 (3.8-5.7cm)LA (2D)4.7 (1.9-4.0cm)Aortic Root3.7 (2.0-3.7cm) LVDs6.1 (2.5-4.0cm)LA (MM) (1.9-4.0cm)Aortic Cusp Exc1.5 (1.5-2.0cm) EF (%) 10.0 (55-70%)Rt. Atrium5.4 (1.9-4.0cm)Asc. Aorta cm IVSd1.1 (0.7-1.1cm)RV (D) (1.8-2.4cm) PWd1.1 (0.7-1.1cm) Mitral Valve MitralMitral Stenosis E wave0.90m/sMV Mean GR.mmHg A wave0.50m/sMV Peak GR.mmHg E/A ratio1.82D MVAcm2 Aortic Valve Aortic ValveAortic Stenosis V10.70m/Rolando Mean GR.4mmHg V21.20m/Rolando Peak GR.6mmHg LVOT Diameter2.5 (1.8-2.4cm)Doppler AVA2.86cm2 Pulmonic Valve V20.60m/s Tricuspid Valve TR Velocity2.30m/s [id number] Conclusion Technically good study. Sinus rhythm. Biatrial enlargement. LV enlargement. Diminished excursion of the mitral leaflet secondary to poor cardiac output. Mild aortic sclerosis. Tricuspid and pulmonic or structurally normal. Left ventricular function is diminished. EF is significantly diminished. Overall estimated ejection fraction is calculated at proximally 10-15% with severe global hypokinesis. Moderate RV hypokinesis . Moderate mitral insufficiency. Moderate tricuspid regurgitation. Moderate pulmonic insufficiency. No pericardial effusion masses or vegetations.
--- NOTE | 2024-11-22 18:25 | DVHPN2 ---
Subjective I am assuming the care of the patient from today onwards Reviewed: Care Plan, H&P, Labs, Medications Changes from previous H/P or p: No Changes General: Per HPI Objective Vitals Vital Signs Date Time Temp Pulse Resp B/P (MAP) Pulse Ox O2 Delivery O2 Flow Rate FiO2 11/22/24 17:00 98.6 65 18 107/74 (85) 209.5 113/64 (80) 11/22/24 16:00 94 Mechanical Ventilator+ 45 45 Intake/Output Intake and Output 11/22/24 07:00 Intake Total 1232.522 ml Output Total 6125 ml Balance -4892.478 ml Intake Oral 20 ml IV Total 760.522 ml Tube Feeding 452 ml Output Urine Total 6125 ml Stool Total 0 ml Exam HEENT pupils are reactive Neck is supple CV is S1-S2 regular rate and rhythm Respiratory diminished breath sounds bases GI positive bowel sound 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 no edema 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 General Appearance: Other (Chemically sedated) HEENT: PERRLA Lungs: Normal air movement, Other (Mechanical Ventilation) Cardiovascular: Normal S1, Normal S2 Abdomen: Normal bowel sounds, Soft, No tenderness Genitourinary: No Apparent Abnormalities (Mayo catheter) Skin: Dry, Intact Psych/Mental Status: Other (Unable to assess) Medications Current Medications Medications Dose Ordered Sig/Dona Route Start Time Stop Time Status Last Admin Dose Admin Ondansetron HCl 4 mg Q4HP PRN IV 11/19/24 08:45 Docusate Sodium 100 mg BIDPRN PRN PO 11/19/24 08:45 Acetaminophen 650 mg Q6HP PRN PO 11/19/24 08:45 11/22/24 09:44 650 MG Nitroglycerin 0.4 mg Q5MINP PRN SL 11/19/24 08:45 Midazolam HCl 50 ml @ 1 mls/hr Q24H IV 11/19/24 09:15 11/22/24 09:44 5 MLS/HR Epinephrine HCl 250 ml @ 7.5 mls/hr Q24H IV 11/19/24 14:45 Piperacillin Sod/ Tazobactam Sod 100 ml @ 25 mls/hr Q8HR IV 11/19/24 22:00 11/22/24 14:10 25 MLS/HR Pantoprazole Sodium 40 mg DAILY IV 11/20/24 10:00 11/22/24 09:03 40 MG Enoxaparin Sodium 40 mg DAILY SC 11/20/24 10:00 11/22/24 09:03 40 MG Octreotide Acetate 100 mcg TID SUBCUT 11/19/24 22:00 11/22/24 14:11 100 MCG Fentanyl Citrate 250 ml @ 2.5 mls/hr Q24H IV 11/20/24 01:30 11/21/24 14:14 7.5 MLS/HR Dopamine HCl/ Dextrose 250 ml @ 6.135 mls/ hr Q24H IV 11/20/24 09:45 11/22/24 05:45 6.135 MLS/HR Norepinephrine Bitartrate 32 mg/ Sodium Chloride 250 ml @ 0.938 mls/ hr Q24H IV 11/20/24 12:00 11/21/24 17:59 6.563 MLS/HR Enteral Nutritional Formula 1,000 ml 30ML/HR GT 11/21/24 08:45 Dextrose 1,000 ml @ 100 mls/hr Q10H IV 11/22/24 09:15 11/22/24 09:28 100 MLS/HR Laboratory Results Laboratory Tests 11/22/24 03:15 11/22/24 04:00 Chemistry Test 11/22/24 04:00 Albumin 4.1 g/dL (3.2-4.8) Calcium Level 9.5 mg/dL (8.7-10.4) Magnesium Level 2.3 mg/dL (1.6-2.6) Total Protein 6.9 g/dL (5.7-8.2) LFT Test 11/22/24 04:00 Alanine Aminotransferase (ALT) 2370 U/L (7-40) H Alkaline Phosphatase 92 U/L (46-116) Aspartate Amino Transferase (AST) 1396 U/L (13-40) H Total Bilirubin 3.0 mg/dL (0.2-1.0) H Urinalysis Test 11/19/24 08:35 Urine Color Yellow (Yellow) Urine Clarity Clear (Clear) Urine pH 5.5 (5.0-9.0) Urine Specific [place] 1.017 (1.001-1.035) Urine Protein 1+ (Negative) H Urine Ketones Negative (Negative) Urine Blood 2+ /uL (Negative) H Urine Nitrite Negative (Negative) Urine Bilirubin Negative (Negative) Urine Urobilinogen Normal mg/dL (Negative) Urine Leukocyte Esterase Negative /uL (Negative) Urine RBC 33 /hpf (0 - 3) Urine Microscopic WBC 6 /HPF (0-3) H Urine Squamous Epithelial Cells Few /hpf (<5) Urine Bacteria None seen /hpf (None Seen) Urine Osmolality 518 mOsm/kg Urine Creatinine 104.97 mg/dL (30.0-125.0) Urine Protein/Creatinine Ratio 1.03 Urine Sodium 21 mmol/L (40-220) L Urine Glucose Normal mg/dL (Normal) Urine Total Protein 108.6 mg/dL (1-14) H Blood Gas Results Test 11/22/24 06:09 Arterial Blood pH 7.566 (7.350-7.450) FiO2 % 45.0 Microbiology Microbiology Date/Time Source Procedure Growth Status 11/20/24 04:00 Nose MRSA Screen - Final Complete 11/19/24 15:51 Blood Blood Culture - Preliminary Resulted 11/19/24 09:42 Sputum Expectorated Sputum Gram Stain - Final Complete 11/19/24 09:42 Respiratory Culture - Final Streptococcus Group B Complete Assessment/Plan Assessment/Plan 69-year-old male with a known history of chronic meth use, initially presented to the hospital with the increasing shortness a breath found to have acute hypoxic respiratory failure requiring intubation and mechanical ventilation. Patient went for CT angiogram and had code blue for 5-6 minutes with ROSC. 1. Acute hypoxic respiratory failure secondary to acute CHF exacerbation 2. Acute CHF exacerbation with systolic dysfunction 3. Cardiac arrest with ROSC after 6 minutes, currently in Cardiogenic shock requiring IV vasopressor 4. Aspiration pneumonia 5. Acute kidney injury suspected secondary to vasomotor nephropathy 6. Shock liver/passive congestive cardiomyopathy 7. NSTEMI 8. Chronic illicit drug use/methamphetamine use -continue gentle hydration, dopamine, IV Levophed, -continue tube feeding. -follow up Cardiology and Pulmonary critical Care recommendations. Plan discussed with: Other Date of Service: Nov 22, 2024 Billing Provider: BARRY MCBRIDE MD Common Visit Codes: [id number] INP/OBS CARE(HIGH) BARRY MCBRIDE MD Nov 22, 2024 18:25
[2024-11-23] VITALS (107 sets, daily range): BP systolic 84–140; BP diastolic 44–77; PULSE 60–87; RESP 12–20; TEMP 98.2–100; O2SAT 78–98
[2024-11-23] MEDS: Jevity 1.2 Cal/Fiber 1 Liter GT SCH (02:36)
[2024-11-23 03:27] LABS: Hematocrit 48.4 % (41.0-53.0); Hemoglobin 16.6 g/dL (13.5-17.5); Mean Corpuscular Hemoglobin 31.8 pg (28.0-32.0); Mean Corpuscular Volume 93.0 fL (80.0-100.0); Nucleated Red Blood Cells % 0.1 %
--- NOTE | 2024-11-23 06:01 | DVH ---
CHEST RADIOGRAPH Indication: PNA Technique: Single frontal view of the chest was obtained Comparison: XY CHEST PORTABLE on DOS: 11/22/24, XY CHEST PORTABLE on DOS: 11/21/24, XY CHEST PORTABLE o n DOS: 11/20/24 IMPRESSION: Heart appears stable in size. Endotracheal tube and enteric tube appear unchanged in satisfactory po sition. Interstitial prominence and patchy bilateral airspace opacities appear similar. Possible mild small right pleural effusion. No pneumothorax.
[2024-11-23 07:30] LABS: Base Excess 10.4 mmol/L (-2.0-3.0)
--- NOTE | 2024-11-23 12:37 | DVHPN2 ---
Progress Note Date Seen: Nov 23, 2024 Medical Necessity Reason Pt with a Central, PICC or Fol: No Subjective Review of Systems: RESPIRATORY:Abnormal Other Systems: Patient seen and examined by myself today in follow-up, patient remained intubated on ventilator Objective vital signs Vital Sign Date Time Temp Pulse Resp B/P (MAP) Pulse Ox O2 Delivery O2 Flow Rate FiO2 11/23/24 11:27 68 18 109/55 (73) 95 45 11/23/24 10:00 Mechanical Ventilator+ 11/23/24 06:45 99.5 211.1 Total Intake and Output 11/22/24 11/22/24 11/23/24 15:00 23:00 07:00 Intake Total 897.584 ml 1463.084 ml 1423.644 ml Output Total 2050 ml 1100 ml Balance 897.584 ml -586.916 ml 323.644 ml medications Current Medications Medications Dose Ordered Sig/Dona Route Start Time Stop Time Status Last Admin Dose Admin Ondansetron HCl 4 mg Q4HP PRN IV 11/19/24 08:45 Docusate Sodium 100 mg BIDPRN PRN PO 11/19/24 08:45 Acetaminophen 650 mg Q6HP PRN PO 11/19/24 08:45 11/22/24 09:44 650 MG Nitroglycerin 0.4 mg Q5MINP PRN SL 11/19/24 08:45 Midazolam HCl 50 ml @ 1 mls/hr Q24H IV 11/19/24 09:15 11/22/24 19:56 3 MLS/HR Epinephrine HCl 250 ml @ 7.5 mls/hr Q24H IV 11/19/24 14:45 Piperacillin Sod/ Tazobactam Sod 100 ml @ 25 mls/hr Q8HR IV 11/19/24 22:00 11/23/24 05:16 25 MLS/HR Pantoprazole Sodium 40 mg DAILY IV 11/20/24 10:00 11/23/24 09:24 40 MG Enoxaparin Sodium 40 mg DAILY SC 11/20/24 10:00 11/23/24 09:24 40 MG Octreotide Acetate 100 mcg TID SUBCUT 11/19/24 22:00 11/23/24 05:16 100 MCG Fentanyl Citrate 250 ml @ 2.5 mls/hr Q24H IV 11/20/24 01:30 11/22/24 20:34 7.5 MLS/HR Dopamine HCl/ Dextrose 250 ml @ 6.135 mls/ hr Q24H IV 11/20/24 09:45 11/22/24 05:45 6.135 MLS/HR Norepinephrine Bitartrate 32 mg/ Sodium Chloride 250 ml @ 0.938 mls/ hr Q24H IV 11/20/24 12:00 11/23/24 05:17 5.625 MLS/HR Enteral Nutritional Formula 1,000 ml 30ML/HR GT 11/21/24 08:45 11/23/24 02:36 1,000 ML Dextrose 1,000 ml @ 100 mls/hr Q10H IV 11/22/24 09:15 11/23/24 05:15 100 MLS/HR Examination: LUNGS:Normal, CVS:Normal, MSK:Normal laboratory and microbiology Laboratory Tests 11/23/24 02:55 11/22/24 04:00 Test 11/22/24 04:00 Range/Units Serum Glucose 151 H 74-106 mg/dL Microbiology Date/Time Source Procedure Growth Status 11/20/24 04:00 Nose MRSA Screen - Final Complete 11/19/24 15:51 Blood Blood Culture - Preliminary Resulted 11/19/24 09:42 Sputum Expectorated Sputum Gram Stain - Final Complete 11/19/24 09:42 Respiratory Culture - Final Streptococcus Group B Complete Problem List/Assessment/Plan Problem List/Assessment/Plan Acute kidney injury superimposed Chronic Kidney Disease secondary hemodynamic mediated, FeNa < 1% Acute respiratory failure, patient intubated on ventilator Congestive heart failure exacerbation Pneumonia Bacteremia Hypokalemia Methamphetamine abuse NSTEMI Liver cirrhosis Jaundice Septic shock Mild proteinuria due to underlying chronic kidney disease Hyponatremia due to excessive water loss Recommendations Kidney function continues to improve Increased urine output Hyperkalemia resolved Mayo catheter Strict I&Os DC Bumex IVF 1/2 NS 100 cc/hour KCL replacement kidney ultrasound kidney ultrasound reported bilateral echogenic kidney IV pressors for blood pressure support Octreotide IV antibiotics Cardiology consult We will continue to follow Plan discussed with: Other (Nurse) Dietary Evaluation Review Comments: Nutrition Recommendation: 1) TF Jevity 1.2Cal @ 70ml/hr x 24hr (goal rate) along with Pro-stat 1 pk daily. Start @ 20ml/hr, increase 10ml/hr Q4H until goal is reached. TF @ goal volume along with Pro-stat & Propofol provide 2116 kcal (100% energy needs), 108 gm protein (100% protein needs), 1356 ml free water. 2) Water flush 190 ml Q6H if allowed, adjust PRN 3) TPN if NPO >7 days 4) Monitor NPO status, lab values, wt trend, I/O Expected Outcomes/Goals: To meet >75% estimated needs Lab values to improve Fu 2-3 days TERESA DODD MD Nov 23, 2024 12:37
[2024-11-23] MEDS: SOD CHL 0.45% 1,000 ML IV SCH (14:03)
--- NOTE | 2024-11-23 14:19 | DVHPN2 ---
Progress Note - Dictate Date Seen: Nov 23, 2024 Medical Necessity Reason Pt with a Central, PICC or Fol: No vital signs Vital Sign Date Time Temp Pulse Resp B/P (MAP) Pulse Ox O2 Delivery O2 Flow Rate FiO2 11/23/24 14:00 74 11/23/24 14:00 18 93 Mechanical Ventilator+ 40 40 11/23/24 13:14 115/58 (77) 11/23/24 06:45 99.5 211.1 Total Intake and Output 11/22/24 11/22/24 11/23/24 15:00 23:00 07:00 Intake Total 897.584 ml 1463.084 ml 1423.644 ml Output Total 2050 ml 1100 ml Balance 897.584 ml -586.916 ml 323.644 ml medications Current Medications Medications Dose Ordered Sig/Dona Route Start Time Stop Time Status Last Admin Dose Admin Ondansetron HCl 4 mg Q4HP PRN IV 11/19/24 08:45 Docusate Sodium 100 mg BIDPRN PRN PO 11/19/24 08:45 Acetaminophen 650 mg Q6HP PRN PO 11/19/24 08:45 11/22/24 09:44 650 MG Nitroglycerin 0.4 mg Q5MINP PRN SL 11/19/24 08:45 Midazolam HCl 50 ml @ 1 mls/hr Q24H IV 11/19/24 09:15 11/22/24 19:56 3 MLS/HR Epinephrine HCl 250 ml @ 7.5 mls/hr Q24H IV 11/19/24 14:45 Piperacillin Sod/ Tazobactam Sod 100 ml @ 25 mls/hr Q8HR IV 11/19/24 22:00 11/23/24 14:02 25 MLS/HR Pantoprazole Sodium 40 mg DAILY IV 11/20/24 10:00 11/23/24 09:24 40 MG Enoxaparin Sodium 40 mg DAILY SC 11/20/24 10:00 11/23/24 09:24 40 MG Octreotide Acetate 100 mcg TID SUBCUT 11/19/24 22:00 11/23/24 14:02 100 MCG Fentanyl Citrate 250 ml @ 2.5 mls/hr Q24H IV 11/20/24 01:30 11/22/24 20:34 7.5 MLS/HR Dopamine HCl/ Dextrose 250 ml @ 6.135 mls/ hr Q24H IV 11/20/24 09:45 11/22/24 05:45 6.135 MLS/HR Norepinephrine Bitartrate 32 mg/ Sodium Chloride 250 ml @ 0.938 mls/ hr Q24H IV 11/20/24 12:00 11/23/24 05:17 5.625 MLS/HR Enteral Nutritional Formula 1,000 ml 30ML/HR GT 11/21/24 08:45 11/23/24 02:36 1,000 ML Sodium Chloride 1,000 ml @ 100 mls/hr Q10H IV 11/23/24 12:45 11/23/24 14:03 100 MLS/HR laboratory and microbiology Laboratory Tests 11/23/24 02:55 11/22/24 04:00 Test 11/22/24 04:00 Range/Units Serum Glucose 151 H 74-106 mg/dL Assessment/Plan s/p cardiac arrest acute resp failure sepsis delirium [employer]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 Start @ 20ml/hr, increase 10ml/hr Q4H until goal is reached. TF @ goal volume along with Pro-stat & Propofol provide 2116 kcal (100% energy needs), 108 gm protein (100% protein needs), 1356 ml free water. 2) Water flush 190 ml Q6H if allowed, adjust PRN 3) TPN if NPO >7 days 4) Monitor NPO status, lab values, wt trend, I/O Expected Outcomes/Goals: To meet >75% estimated needs Lab values to improve Fu 2-3 days Plan discussed with: Other (Rn) SHERWIN MOORE MD Nov 23, 2024 14:19
--- NOTE | 2024-11-23 14:44 | DVHPN2 ---
Subjective Patient has remained intubated and sedated. Reviewed: Care Plan, H&P, Labs, Medications Changes from previous H/P or p: No Changes General: Per HPI Objective Vitals Vital Signs Date Time Temp Pulse Resp B/P (MAP) Pulse Ox O2 Delivery O2 Flow Rate FiO2 11/23/24 14:00 74 11/23/24 14:00 18 93 Mechanical Ventilator+ 40 40 11/23/24 13:14 115/58 (77) 11/23/24 06:45 99.5 211.1 Intake/Output Intake and Output 11/23/24 07:00 Intake Total 3784.312 ml Output Total 3150 ml Balance 634.312 ml Intake Oral 260 ml IV Total 3058.312 ml Tube Feeding 466 ml Output Urine Total 3150 ml Stool Total 0 ml Exam HEENT pupils are reactive Neck is supple CV is S1-S2 regular rate and rhythm Respiratory diminished breath sounds bases GI positive bowel sound Extremity no edema 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 General Appearance: Other (Chemically sedated) HEENT: PERRLA Lungs: Normal air movement, Other (Mechanical Ventilation) Cardiovascular: Normal S1, Normal S2 Abdomen: Normal bowel sounds, Soft, No tenderness Genitourinary: No Apparent Abnormalities (Mayo catheter) Skin: Dry, Intact Psych/Mental Status: Other (Unable to assess) Medications Current Medications Medications Dose Ordered Sig/Dona Route Start Time Stop Time Status Last Admin Dose Admin Ondansetron HCl 4 mg Q4HP PRN IV 11/19/24 08:45 Docusate Sodium 100 mg BIDPRN PRN PO 11/19/24 08:45 Acetaminophen 650 mg Q6HP PRN PO 11/19/24 08:45 11/22/24 09:44 650 MG Nitroglycerin 0.4 mg Q5MINP PRN SL 11/19/24 08:45 Midazolam HCl 50 ml @ 1 mls/hr Q24H IV 11/19/24 09:15 11/22/24 19:56 3 MLS/HR Epinephrine HCl 250 ml @ 7.5 mls/hr Q24H IV 11/19/24 14:45 Piperacillin Sod/ Tazobactam Sod 100 ml @ 25 mls/hr Q8HR IV 11/19/24 22:00 11/23/24 14:02 25 MLS/HR Pantoprazole Sodium 40 mg DAILY IV 11/20/24 10:00 11/23/24 09:24 40 MG Enoxaparin Sodium 40 mg DAILY SC 11/20/24 10:00 11/23/24 09:24 40 MG Octreotide Acetate 100 mcg TID SUBCUT 11/19/24 22:00 11/23/24 14:02 100 MCG Fentanyl Citrate 250 ml @ 2.5 mls/hr Q24H IV 11/20/24 01:30 11/22/24 20:34 7.5 MLS/HR Dopamine HCl/ Dextrose 250 ml @ 6.135 mls/ hr Q24H IV 11/20/24 09:45 11/22/24 05:45 6.135 MLS/HR Norepinephrine Bitartrate 32 mg/ Sodium Chloride 250 ml @ 0.938 mls/ hr Q24H IV 11/20/24 12:00 11/23/24 05:17 5.625 MLS/HR Enteral Nutritional Formula 1,000 ml 30ML/HR GT 11/21/24 08:45 11/23/24 02:36 1,000 ML Sodium Chloride 1,000 ml @ 100 mls/hr Q10H IV 11/23/24 12:45 11/23/24 14:03 100 MLS/HR Laboratory Results Laboratory Tests 11/22/24 04:00 11/23/24 02:55 Urinalysis Test 11/19/24 08:35 Urine Color Yellow (Yellow) Urine Clarity Clear (Clear) Urine pH 5.5 (5.0-9.0) Urine Specific [place] 1.017 (1.001-1.035) Urine Protein 1+ (Negative) H Urine Ketones Negative (Negative) Urine Blood 2+ /uL (Negative) H Urine Nitrite Negative (Negative) Urine Bilirubin Negative (Negative) Urine Urobilinogen Normal mg/dL (Negative) Urine Leukocyte Esterase Negative /uL (Negative) Urine RBC 33 /hpf (0 - 3) Urine Microscopic WBC 6 /HPF (0-3) H Urine Squamous Epithelial Cells Few /hpf (<5) Urine Bacteria None seen /hpf (None Seen) Urine Osmolality 518 mOsm/kg Urine Creatinine 104.97 mg/dL (30.0-125.0) Urine Protein/Creatinine Ratio 1.03 Urine Sodium 21 mmol/L (40-220) L Urine Glucose Normal mg/dL (Normal) Urine Total Protein 108.6 mg/dL (1-14) H Blood Gas Results Test 11/23/24 06:57 Arterial Blood pH 7.343 (7.350-7.450) FiO2 % 80.0 Microbiology Microbiology Date/Time Source Procedure Growth Status 11/20/24 04:00 Nose MRSA Screen - Final Complete 11/19/24 15:51 Blood Blood Culture - Preliminary Resulted 11/19/24 09:42 Sputum Expectorated Sputum Gram Stain - Final Complete 11/19/24 09:42 Respiratory Culture - Final Streptococcus Group B Complete Assessment/Plan Assessment/Plan 69-year-old male with a known history of chronic meth use, initially presented to the hospital with the increasing shortness a breath found to have acute hypoxic respiratory failure requiring intubation and mechanical ventilation. Patient went for CT angiogram and had code blue for 5-6 minutes with ROSC. 1. Acute hypoxic respiratory failure secondary to acute CHF exacerbation 2. Acute CHF exacerbation with systolic dysfunction 3. Cardiac arrest with ROSC after 6 minutes, currently in Cardiogenic shock requiring IV vasopressor 4. Aspiration pneumonia 5. Acute kidney injury suspected secondary to vasomotor nephropathy 6. Shock liver/passive congestive cardiomyopathy 7. NSTEMI 8. Chronic illicit drug use/methamphetamine use -continue gentle hydration, dopamine, IV Levophed, -continue tube feeding. -follow up Cardiology and Pulmonary critical Care recommendations. Plan discussed with: Other (Patient's bedside RN.) Date of Service: Nov 23, 2024 Billing Provider: BARRY MCBRIDE MD Common Visit Codes: [id number] INP/OBS CARE(HIGH) BARRY MCBRIDE MD Nov 23, 2024 14:44
[2024-11-23 15:41] LABS: Potassium 3.5 mmol/L (3.5-5.1)
[2024-11-23 15:48] LABS: Magnesium 2.2 mg/dL (1.6-2.6)
[2024-11-23] MEDS: POTASSIUM CHL 20MEQ/100ML 100 ML IV SCH (16:26)
[2024-11-23] MEDS: POTASSIUM CHL 20MEQ/100ML 200 ML IV ONE (16:29)
--- NOTE | 2024-11-23 17:57 | DVHPN2 ---
Consult Progress Note Subjective Other Systems: Patient in normal sinus rhythm with depressed T-waves and frequent PVCs on pharmacist in charge Objective vital signs Vital Sign Date Time Temp Pulse Resp B/P (MAP) Pulse Ox O2 Delivery O2 Flow Rate FiO2 11/23/24 17:30 99.3 70 18 106/69 (81) 94 99.3 115/59 (77) 11/23/24 16:00 Mechanical Ventilator+ 40 40 Total Intake and Output 11/22/24 11/22/24 11/23/24 15:00 23:00 07:00 Intake Total 897.584 ml 1463.084 ml 1423.644 ml Output Total 2050 ml 1100 ml Balance 897.584 ml -586.916 ml 323.644 ml medications Current Medications Medications Dose Ordered Sig/Dona Route Start Time Stop Time Status Last Admin Dose Admin Ondansetron HCl 4 mg Q4HP PRN IV 11/19/24 08:45 Docusate Sodium 100 mg BIDPRN PRN PO 11/19/24 08:45 Acetaminophen 650 mg Q6HP PRN PO 11/19/24 08:45 11/22/24 09:44 650 MG Nitroglycerin 0.4 mg Q5MINP PRN SL 11/19/24 08:45 Midazolam HCl 50 ml @ 1 mls/hr Q24H IV 11/19/24 09:15 11/22/24 19:56 3 MLS/HR Epinephrine HCl 250 ml @ 7.5 mls/hr Q24H IV 11/19/24 14:45 Piperacillin Sod/ Tazobactam Sod 100 ml @ 25 mls/hr Q8HR IV 11/19/24 22:00 11/23/24 14:02 25 MLS/HR Pantoprazole Sodium 40 mg DAILY IV 11/20/24 10:00 11/23/24 09:24 40 MG Enoxaparin Sodium 40 mg DAILY SC 11/20/24 10:00 11/23/24 09:24 40 MG Octreotide Acetate 100 mcg TID SUBCUT 11/19/24 22:00 11/23/24 14:02 100 MCG Fentanyl Citrate 250 ml @ 2.5 mls/hr Q24H IV 11/20/24 01:30 11/22/24 20:34 7.5 MLS/HR Dopamine HCl/ Dextrose 250 ml @ 6.135 mls/ hr Q24H IV 11/20/24 09:45 11/22/24 05:45 6.135 MLS/HR Norepinephrine Bitartrate 32 mg/ Sodium Chloride 250 ml @ 0.938 mls/ hr Q24H IV 11/20/24 12:00 11/23/24 05:17 5.625 MLS/HR Enteral Nutritional Formula 1,000 ml 30ML/HR GT 11/21/24 08:45 11/23/24 02:36 1,000 ML Sodium Chloride 1,000 ml @ 100 mls/hr Q10H IV 11/23/24 12:45 11/23/24 14:03 100 MLS/HR Potassium Chloride 100 ml @ 50 mls/hr Q2H IV 11/23/24 16:15 11/23/24 20:14 11/23/24 16:26 50 MLS/HR Examination: GENERAL:Abnormal, LUNGS:Abnormal (Mechanically ventilated, FiO2 40%, PEEP 7), CVS:Abnormal (Normal sinus rhythm with depressed T-waves and frequent PVCs), NEURO:Abnormal (Chemically sedated) laboratory and microbiology Laboratory Tests 11/23/24 15:10 11/23/24 02:55 11/22/24 04:00 Test 11/22/24 04:00 Range/Units Serum Glucose 151 H 74-106 mg/dL Problem List/Assessment/Plan Problem List/Assessment/Plan Cardiopulmonary arrest status post CPR with ROSC Mixed shock, cardiogenic versus septic De Ginger, decompensated HFrEF, NYHA class IV NSTEMI Moderate tricuspid valve regurgitation Acute hypoxic respiratory failure Acute kidney injury Bacteremia Hyperkalemia, resolved Shock liver History of methamphetamine use Plan/Recommendations (Dr. Beatty): Transthoracic echocardiogram reveals an EF of 10-15% with severe global hypokinesis. Continue with vasopressor therapy for hemodynamic support. Switch to Quad strength vasopressors given reduced EF. Strict intake and output, daily weights, maintain fluid restriction. The patient underwent a CTA and subsequently had cardiopulmonary arrest in which CPR was initiated immediately and ROSC was achieved within [address] angiography report was unable to evaluate for pulmonary embolism due to no contrast within the pulmonary arteries. D-dimer is noted to be elevated. Creatinine levels improved but still remain elevated. Positive blood cultures noted. The patient may benefit from eventual ischemic workup dependent on neurological function and improved renal function. In the meantime, continue with close cardiac surveillance. Further recommendations per clinical course and progression. Thank you for allowing us to care for this patient. Please call with any questions or concerns. Critical care time spent: 38 minutes. This medical document was created using an electronic medical record system with voice recognition software and computerized dictation system. Although this document has been carefully reviewed, there might still be some phonetic and typographical errors. Occasional wrong-word or ``sound-alike substitutions may have occurred due to the inherent limitations of voice recognition software. These areas are purely typographical due to imperfections of the software programs and do not reflect any compromise in the patient's medical care. Please read the chart carefully and recognize, using context, where these substitutions have occurred. Plan discussed with: Other (Bedside RNSanjay) Dietary Evaluation Review Comments: Nutrition Recommendation: 1) TF Jevity 1.2Cal @ 70ml/hr x 24hr (goal rate) along with Pro-stat 1 pk daily. Start @ 20ml/hr, increase 10ml/hr Q4H until goal is reached. TF @ goal volume along with Pro-stat & Propofol provide 2116 kcal (100% energy needs), 108 gm protein (100% protein needs), 1356 ml free water. 2) Water flush 190 ml Q6H if allowed, adjust PRN 3) TPN if NPO >7 days 4) Monitor NPO status, lab values, wt trend, I/O Expected Outcomes/Goals: To meet >75% estimated needs Lab values to improve Fu 2-3 days Date of Service: Nov 23, 2024 Billing Provider: HEMA SCHWARZ Common Visit Codes: [id number] CARE 30-74 MIN HEMA SCHWARZ Nov 23, 2024 17:57
[2024-11-24] VITALS (104 sets, daily range): BP systolic 83–128; BP diastolic 46–83; PULSE 55–71; RESP 13–19; TEMP 97–100.4; O2SAT 90–98
[2024-11-24 04:39] LABS: Hematocrit 46.4 % (41.0-53.0); Hemoglobin 15.4 g/dL (13.5-17.5); Mean Corpuscular Hemoglobin 31.0 pg (28.0-32.0); Mean Corpuscular Volume 93.2 fL (80.0-100.0); Nucleated Red Blood Cells % 0.2 %
[2024-11-24 04:50] LABS: Albumin 3.5 g/dL (3.2-4.8); Alkaline Phosphatase 69 U/L (46-116); Anion Gap 7 (5-15); BUN/Creatinine Ratio 27.3 (10.0-20.0); Chloride 107 mmol/L (98-107); Potassium 4.0 mmol/L (3.5-5.1); Total Protein 6.0 g/dL (5.7-8.2)
[2024-11-24 04:54] LABS: Alanine Aminotransferase 828 U/L (7-40); Bilirubin, Total 2.7 mg/dL (0.2-1.0); Blood Urea Nitrogen 33 mg/dL (9-23); Calcium 8.2 mg/dL (8.7-10.4); Carbon Dioxide 37 mmol/L (20-31); Glucose 113 mg/dL (74-106); Sodium 151 mmol/L (136-145)
--- NOTE | 2024-11-24 05:06 | DVH ---
CHEST RADIOGRAPH Indication: RESPIRATORY FAILURE Technique: Single frontal view of the chest was obtained COMPARISON: XY CHEST PORTABLE on DOS: 11/23/24, XY CHEST PORTABLE on DOS: 11/22/24, XY CHEST PORTABLE o n DOS: 11/21/24, XY CHEST PORTABLE on DOS: 11/20/24, CT CT ANGIO CHEST CONTRAST on DOS: 11/19/24 FINDINGS: Lines and Tubes: Endotracheal tube, enteric catheter in satisfactory position Lungs: Congestion Pleura: No effusion. No pneumothorax. Cardiomediastinal contours: Unremarkable Bones: Unremarkable IMPRESSION: Lines and tubes in satisfactory position. No significant interval change.
[2024-11-24 06:56] LABS: Base Excess 8.9 mmol/L (-2.0-3.0)
--- NOTE | 2024-11-24 10:09 | DVHPN2 ---
Consult Progress Note Date Seen: Nov 24, 2024 Subjective Other Systems: monitoring and evaluation advisor reviewed with episodes of NSVT < 3 sec Objective vital signs Vital Sign Date Time Temp Pulse Resp B/P (MAP) Pulse Ox O2 Delivery O2 Flow Rate FiO2 11/24/24 09:35 56 18 102/49 (66) 93 30 11/24/24 07:57 Mechanical Ventilator+ 11/24/24 06:45 99.3 210.7 Total Intake and Output 11/23/24 11/23/24 11/24/24 15:00 23:00 07:00 Intake Total 1033.084 ml 1444.584 ml 1246.062 ml Output Total 1100 ml 1100 ml Balance 1033.084 ml 344.584 ml 146.062 ml medications Current Medications Medications Dose Ordered Sig/Dona Route Start Time Stop Time Status Last Admin Dose Admin Ondansetron HCl 4 mg Q4HP PRN IV 11/19/24 08:45 Docusate Sodium 100 mg BIDPRN PRN PO 11/19/24 08:45 Acetaminophen 650 mg Q6HP PRN PO 11/19/24 08:45 11/22/24 09:44 650 MG Nitroglycerin 0.4 mg Q5MINP PRN SL 11/19/24 08:45 Midazolam HCl 50 ml @ 1 mls/hr Q24H IV 11/19/24 09:15 11/24/24 09:25 2 MLS/HR Epinephrine HCl 250 ml @ 7.5 mls/hr Q24H IV 11/19/24 14:45 Piperacillin Sod/ Tazobactam Sod 100 ml @ 25 mls/hr Q8HR IV 11/19/24 22:00 11/24/24 05:27 25 MLS/HR Pantoprazole Sodium 40 mg DAILY IV 11/20/24 10:00 11/24/24 09:10 40 MG Enoxaparin Sodium 40 mg DAILY SC 11/20/24 10:00 11/24/24 09:10 40 MG Octreotide Acetate 100 mcg TID SUBCUT 11/19/24 22:00 11/24/24 05:27 100 MCG Fentanyl Citrate 250 ml @ 2.5 mls/hr Q24H IV 11/20/24 01:30 11/22/24 20:34 7.5 MLS/HR Dopamine HCl/ Dextrose 250 ml @ 6.135 mls/ hr Q24H IV 11/20/24 09:45 11/23/24 18:40 6.135 MLS/HR Norepinephrine Bitartrate 32 mg/ Sodium Chloride 250 ml @ 0.938 mls/ hr Q24H IV 11/20/24 12:00 11/23/24 05:17 5.625 MLS/HR Enteral Nutritional Formula 1,000 ml 30ML/HR GT 11/21/24 08:45 11/23/24 22:24 1,000 ML Sodium Chloride 1,000 ml @ 100 mls/hr Q10H IV 11/23/24 12:45 11/24/24 09:11 100 MLS/HR Examination: GENERAL:Abnormal, LUNGS:Abnormal (Bilateral crackles), CVS:Abnormal (Sinus bradycardia with T-wave inversion. On dual-vaopressor), NEURO:Abnormal (Chemically sedated) laboratory and microbiology Laboratory Tests 11/24/24 03:30 Test 11/24/24 03:30 Range/Units Serum Glucose 113 H 74-106 mg/dL Problem List/Assessment/Plan Problem List/Assessment/Plan NSTEMI, questionable Type I Cardiopulmonary arrest status post CPR with ROSC Mixed shock, cardiogenic & septic De Ginger, decompensated HFrEF, NYHA class IV Non-sustained ventricular tachycardia (<3 sec) Acute hypoxic respiratory failure Acute kidney injury, resolving Shock liver, improving Hyperkalemia, resolved Methamphetamine/cannabinoid use Plan/Recommendations (Dr. Beatty) Transthoracic echocardiogram reveals an EF of 10-15% with severe global hypokinesis. Continue with vasopressor therapy for hemodynamic support. Initiate preload reduction with Lasix, obtain BNP level. Strict intake and output, daily weights, maintain fluid restriction. Cardiopulmonary arrest during CT angio chest post contrast injection in which CPR was initiated immediately and ROSC was achieved within 4 minutes. Initiate therapeutic Lovenox for possible PE. Obtain a bilateral lower extremity US to rule out DVT. Continue Nephrology recommendations. The patient may benefit from eventual ischemic workup dependent on neurological function and improved renal function. In the meantime, continue with close cardiac surveillance. Further recommendations per clinical course and progression. Thank you for allowing us to care for this patient. Please call with any questions or concerns. Critical care time spent: 30 minutes. This medical document was created using an electronic medical record system with voice recognition software and computerized dictation system. Although this document has been carefully reviewed, there might still be some phonetic and typographical errors. Occasional wrong-word or ``sound-alike substitutions may have occurred due to the inherent limitations of voice recognition software. These areas are purely typographical due to imperfections of the software programs and do not reflect any compromise in the patient's medical care. Please read the chart carefully and recognize, using context, where these substitutions have occurred. Plan discussed with: Other Dietary Evaluation Review Comments: Nutrition Recommendation: 1) TF Jevity 1.2Cal @ 70ml/hr x 24hr (goal rate) along with Pro-stat 1 pk daily. Start @ 20ml/hr, increase 10ml/hr Q4H until goal is reached. TF @ goal volume along with Pro-stat & Propofol provide 2116 kcal (100% energy needs), 108 gm protein (100% protein needs), 1356 ml free water. 2) Water flush 190 ml Q6H if allowed, adjust PRN 3) TPN if NPO >7 days 4) Monitor NPO status, lab values, wt trend, I/O Expected Outcomes/Goals: To meet >75% estimated needs Lab values to improve Fu 2-3 days Date of Service: Nov 24, 2024 Billing Provider: LORETTA FRIAS Cardiology Common Codes: [id number] CARE 30-74 MIN LORETTA FRIAS Nov 24, 2024 10:09
[2024-11-24] MEDS: FUROSEMIDE 20 MG/2 ML VIAL IV ONE (11:06)
[2024-11-24] MEDS: FUROSEMIDE 20 MG/2 ML VIAL ONE (11:07)
[2024-11-24] MEDS: ENOXAPARIN SOD 40 MG/0.4 ML SYRINGE SC ONE ×2 (11:07→11:13)
[2024-11-24] MEDS: FUROSEMIDE 40 MG/4 ML VIAL ONE (11:10)
[2024-11-24] MEDS: THIAMINE 100mg/ml INJ (200mg/2ml VIAL) ONE (11:10)
[2024-11-24] MEDS: FAMOTIDINE (10MG/ML) 2ML VL IV ONE (11:10)
--- NOTE | 2024-11-24 11:23 | DVH ---
Bilateral lower extremity venous duplex Clinical History: Elevated D-dimer Comparison: None Findings: Duplex Doppler evaluation of the deep venous systems of both lower extremities from the common femora l veins to the popliteal veins including color Doppler and spectral/pulsed waveform analysis was perf ormed. RIGHT SIDE: The common femoral vein demonstrates appropriate compressibility and waveform variability. There is compressibility/patency of the great saphenous vein at the proximal thigh. The femoral vein demonstrates appropriate compressibility and waveform variability. The deep femoral vein demonstrates appropriate compressibility and waveform variability. The popliteal vein demonstrates appropriate compressibility and waveform variability. There is normal compressibility at the tibioperoneal trunk. LEFT SIDE: The common femoral vein demonstrates appropriate compressibility and waveform variability. There is compressibility/patency of the great saphenous vein at the proximal thigh. The femoral vein demonstrates appropriate compressibility and waveform variability. The deep femoral vein demonstrates appropriate compressibility and waveform variability. The popliteal vein demonstrates appropriate compressibility and waveform variability. There is normal compressibility at the tibioperoneal trunk. IMPRESSION: No right or left femoropopliteal venous thrombosis. If clinical concern/symptoms persist or worsen, short-interval follow-up study is suggested. END IMPRESSION:
--- NOTE | 2024-11-24 16:10 | DVH ---
CHEST RADIOGRAPH Indication: CENTRAL LINE PLACEMENT Technique: Single frontal view of the chest was obtained COMPARISON: XY CHEST PORTABLE on DOS: 11/24/24, XY CHEST PORTABLE on DOS: 11/23/24, XY CHEST PORTABLE o n DOS: 11/22/24, XY CHEST PORTABLE on DOS: 11/21/24, XY CHEST PORTABLE on DOS: 11/20/24 FINDINGS: Lines and Tubes: Left central venous catheter overlies the left hemithorax and may be within a diminu tive left SVC seen on CT dated 11/19/2024. Endotracheal tube and enteric catheter in satisfactory position. Lungs: Congestion Pleura: No effusion. No pneumothorax. Cardiomediastinal contours: Unremarkable Bones: Unremarkable IMPRESSION: Left central venous catheter overlies the left hemithorax and may be within a diminutive left SVC see n on CT dated 11/19/2024. Clinical correlation advised.
--- NOTE | 2024-11-24 16:18 | DVHNC2 ---
Central Line Recorder of insertion practice: Package Crimper Occupation of instructional consultant: Attending Physician Indication: Relpace: line malfunction Maximal sterile barrier precau: Mask/Eye shield, Sterile gown, Cap, Sterlie gloves, Large sterlie drape Skin Preparation: Chlorhexidine gluconate Insertion site: Left, Internal jugular Central line catheter type: Wop-[id number]-qjz dialysis Number of lumens: 3 Post Assessment: No Pneumothorax Notes cxr wet read TLC showed going straight down from IJ to left side. blood gas drawn from central line showed VBG. further placement confirmed with bubble study, agitated bubble showed entering RA and RV. will get CTA to confirm placem ent Date of Service: Nov 24, 2024 Billing Provider: MELY GARCIA MD Common Visit Codes: PROCEDURE ONLY Procedure Codes: 37181-[id number] NON-TUNNEL CV CATH MELY GARCIA MD Nov 24, 2024 16:18
[2024-11-24] MEDS: IOHEXOL 350 MG/ML 100ML IJ ONE ×2 (16:33→16:49)
--- NOTE | 2024-11-24 17:37 | DVH ---
Indication: CENTARAL LINE PLAEMENT/ RO PE Technique: CT axial images of the abdomen and pelvis are obtained with intravenous contrast. Coronal and sagittal reformats were obtained. Radiation Dose Information: CTDI volume is 24.6 mGy. Dose-length product is 779 mGy*cm Comparison: CT CT ANGIO CHEST CONTRAST on DOS: 11/19/24 FINDINGS: There is no filling defect within the main left right pulmonary arteries. The segmental and subsegme ntal branches are suboptimally characterized, no definitive defects identified. There is an endotracheal tube. No pneumothorax. There is bilateral pulmonary airspace consolidation most pronounced within the lower lobes bilaterally. This is decreased in the left lower lobe compared to the previous examination. Increased atelectasis/consolidation in the right upper lobe. Tiny bila teral pleural effusions, [id number]-[id number]-right. Tiny left lower lobe cavitary lesion measuring 6 mm. Heart enlarged. Coronary artery calcification disease. Aortic atherosclerotic disease. No supraclav icular, axillary lymphadenopathy. Cirrhotic morphology appearance of the liver. The left IJ catheter courses into what is likely hypoplastic/ atretic left SVC Left supraclavicular fossa region hematoma measuring 4.7 x 3.2 cm IMPRESSION: No evidence for large pulmonary embolism. Left IJ catheter appears to course into hypoplastic/ atretic left SVC although puncture through the l eft brachiocephalic vein can not be ruled out. Recommend removal and repositioning into the normal S VC. 4.7 x 3.2 cm left supraclavicular fossa hematoma Bilateral pulmonary airspace consolidation /atelectasis decrease in the left lung, increased in the r ight upper lung and coronary artery calcification disease. Tiny bilateral pleural effusions, [id number]-[id number]-frtv-right. Cirrhotic morphology liver. 6 mm left lower lobe cavitary lesion in the region of previous airspace consolidation. Recommend con tinued follow-up to evaluate for atypical infection, metastases, neoplasm. Other findings as described.
--- NOTE | 2024-11-24 17:52 | DVH ---
Procedure: CT CT ANGIO NECK CONTRAST HISTORY: CENT LINE / POSS HEMATOMA Comparison Study: None Exam Date:11/24/2024 04:46 PM TECHNIQUE: CTA head without and with intravenous contrast. CTA neck with intravenous contrast. 3D yahir [employer] postprocessing was performed and images were used for interpretation and reporting. Radiation Dose : CT Dose: CTDI volume is 24.63 mGy. Dose-length product is 778.6 mGy*cm. Omnipaque 350: 99 mL FINDINGS: CTA head: There is normal enhancement of the visualized distal internal carotid, anterior and middle cerebral a rteries. There is a normal anterior communicating artery complex. There are bilateral posterior commu nicating arteries. The vertebral, basilar, cerebellar and posterior cerebral arteries are within norm al limits. The early parenchymal enhancement is grossly unremarkable. The visualized intracranial janeth ous structures are grossly unremarkable. CTA neck: 9-10mm hypodense nodule in the right lobe of the thyroid if further evaluation is of clinical concern recommend thyroid ultrasound. Endotracheal tube and enteric tube in place. The visualized thoracic aortic arch and proximal great vessels are unremarkable. The left common, int ernal and external carotid arteries are within normal limits. The right common, internal and external carotid arteries are within normal limits. The cervical segments of the right and left vertebral art eries are within normal limits. The limited visualized lung apices are clear. The surrounding soft ti ssues and osseous structures are otherwise unremarkable. IMPRESSION: 1. No evidence of hemodynamically significant intracranial stenosis, proximal occlusion or aneurysm. 2. No calcifications noted in the carotid bifurcations bilaterally. 3. 9-10mm hypodense nodule in the right lobe of the thyroid if further evaluation is of clinical conc elin recommend thyroid ultrasound.No evidence of hemodynamically significant cervical stenosis or diss ection. All CT scans at this medical facility are performed using dose modulation techniques as appropriate t o a performed exam including the following: Automated exposure control was utilized; adjustment of th e MA and/or KV according to patient size; and use of iterative reconstruction technique.
--- NOTE | 2024-11-24 19:16 | DVHPN2 ---
Progress Note Date Seen: Nov 24, 2024 Medical Necessity Reason Pt with a Central, PICC or Fol: No Subjective Patient reports: Other Review of Systems: Deferred Objective vital signs Vital Sign Date Time Temp Pulse Resp B/P (MAP) Pulse Ox O2 Delivery O2 Flow Rate FiO2 11/24/24 18:45 65 18 94/60 (71) 92 104/55 (71) 11/24/24 18:30 40 11/24/24 18:00 Mechanical Ventilator+ 11/24/24 16:00 98.4 98.4 Total Intake and Output 11/23/24 11/23/24 11/24/24 15:00 23:00 07:00 Intake Total 1033.084 ml 1444.584 ml 1362.947 ml Output Total 1100 ml 1100 ml Balance 1033.084 ml 344.584 ml 262.947 ml medications Current Medications Medications Dose Ordered Sig/Dona Route Start Time Stop Time Status Last Admin Dose Admin Ondansetron HCl 4 mg Q4HP PRN IV 11/19/24 08:45 Docusate Sodium 100 mg BIDPRN PRN PO 11/19/24 08:45 Acetaminophen 650 mg Q6HP PRN PO 11/19/24 08:45 11/22/24 09:44 650 MG Nitroglycerin 0.4 mg Q5MINP PRN SL 11/19/24 08:45 Midazolam HCl 50 ml @ 1 mls/hr Q24H IV 11/19/24 09:15 11/24/24 09:25 2 MLS/HR Epinephrine HCl 250 ml @ 7.5 mls/hr Q24H IV 11/19/24 14:45 Piperacillin Sod/ Tazobactam Sod 100 ml @ 25 mls/hr Q8HR IV 11/19/24 22:00 11/24/24 14:56 25 MLS/HR Pantoprazole Sodium 40 mg DAILY IV 11/20/24 10:00 11/24/24 09:10 40 MG Octreotide Acetate 100 mcg TID SUBCUT 11/19/24 22:00 11/24/24 14:38 100 MCG Fentanyl Citrate 250 ml @ 2.5 mls/hr Q24H IV 11/20/24 01:30 11/22/24 20:34 7.5 MLS/HR Norepinephrine Bitartrate 32 mg/ Sodium Chloride 250 ml @ 0.938 mls/ hr Q24H IV 11/20/24 12:00 11/23/24 05:17 5.625 MLS/HR Enteral Nutritional Formula 1,000 ml 30ML/HR GT 11/21/24 08:45 11/23/24 22:24 1,000 ML Enoxaparin Sodium 80 mg Q12HR SC 11/24/24 22:00 Furosemide 20 mg DAILY IV 11/25/24 10:00 Examination: GENERAL:Abnormal, MSK:Abnormal, SKIN:Abnormal, NEURO:Abnormal laboratory and microbiology Laboratory Tests 11/24/24 03:30 Test 11/24/24 03:30 Range/Units Serum Glucose 113 H 74-106 mg/dL Microbiology Date/Time Source Procedure Growth Status 11/23/24 09:12 Blood Blood Culture - Preliminary NO GROWTH AFTER 24 HOURS OF INCUBATION. Resulted 11/20/24 04:00 Nose MRSA Screen - Final Complete 11/19/24 09:42 Sputum Expectorated Sputum Gram Stain - Final Complete 11/19/24 09:42 Respiratory Culture - Final Streptococcus Group B Complete Problem List/Assessment/Plan Problem List/Assessment/Plan Acute kidney injury superimposed Chronic Kidney Disease secondary hemodynamic mediated, FeNa < 1% Acute respiratory failure, patient intubated on ventilator Congestive heart failure exacerbation Pneumonia Bacteremia Hypokalemia Methamphetamine abuse NSTEMI Liver cirrhosis Jaundice Septic shock Mild proteinuria due to underlying chronic kidney disease Hyponatremia due to excessive water loss recs dc ivf diuretics free water for Na correction Plan discussed with: Other My Orders My Orders Orders - ESTEBAN GARCIA MD Procedure Category Date Status Time Communication Order ORDERS 11/24/24 Transmitted 11:15 Dietary Evaluation Review Comments: Nutrition Recommendation: 1) TF Jevity 1.2Cal @ 70ml/hr x 24hr (goal rate) along with Pro-stat 1 pk daily. Start @ 20ml/hr, increase 10ml/hr Q4H until goal is reached. TF @ goal volume along with Pro-stat & Propofol provide 2116 kcal (100% energy needs), 108 gm protein (100% protein needs), 1356 ml free water. 2) Water flush 190 ml Q6H if allowed, adjust PRN 3) TPN if NPO >7 days 4) Monitor NPO status, lab values, wt trend, I/O Expected Outcomes/Goals: To meet >75% estimated needs Lab values to improve Fu 2-3 days ESTEBAN GARCIA MD Nov 24, 2024 19:16
--- NOTE | 2024-11-24 19:20 | DVHPN2 ---
Assessment/Plan Assessment/Plan ICU note 69 M with meth use, HFrEF intubated for respiratory failure, s/p asystoe and vtach arrest with DCCV. ROSC in 6 minutes. seen today, placed LIJ TLC that enters the left SVC, will replace tomorrow. Physical exam Intubated, sedated on mechanical ventilation PERRLA moving to pain s1 s2 rrr mechanical breath sounds abdomen soft nontender LE edema Labs EKG imaging reviewed bcx clostridium septicum sputum GBS Assessment and plan acute hypoxic RF req mech vent acute systolic heart failure HFrEF 10% RV hypokinesis s/p asystole and vtach arrest w dccv mixed septic cardiogenic shock aspiration PNA gp vs gn ABDI VMN shock liver possible type 1 WI NSVT meth use hep C? hypernatremia c/w mech vent c/w pressor, maintain MAP >65 c/w sedation, RAAS -2 replace TLC dc fem line free water flush octreotide sc Lasix diet tf dvt ppx lovenox gi ppx protonix full code condition critical prognosis poor critical care time 90 minutes Plan discussed with: Other My Orders Orders - MELY GARCIA MD Procedure Category Date Status Time Chest Portable XY 11/24/24 Resulted 15:[address] 11/24/24 Resulted Contrast 15:[address] Angio Neck Contrast CT 11/24/24 Resulted 16:26 Chest Portable XY 11/25/24 Logged 04:00 Communication Order ORDERS 11/24/24 Transmitted 19:18 Date of Service: Nov 24, 2024 Billing Provider: MELY GARCIA MD Common Visit Codes: 68956-[id number] CARE 30-74 MIN, [id number] CARE-EACH +30MIN MELY GARCIA MD Nov 24, 2024 19:20
[2024-11-24] MEDS: ENOXAPARIN SOD 80 MG/0.8ML SYRINGE SC SCH (22:01)
[2024-11-25] VITALS (109 sets, daily range): BP systolic 84–152; BP diastolic 44–93; PULSE 49–75; RESP 13–19; TEMP 97.5–102.7; O2SAT 92–100
[2024-11-25 03:43] LABS: Hematocrit 48.2 % (41.0-53.0); Hemoglobin 16.3 g/dL (13.5-17.5); Mean Corpuscular Hemoglobin 31.3 pg (28.0-32.0); Mean Corpuscular Volume 92.7 fL (80.0-100.0); Nucleated Red Blood Cells % 0.0 %
[2024-11-25 04:04] LABS: Albumin 3.7 g/dL (3.2-4.8); Alkaline Phosphatase 80 U/L (46-116); Anion Gap 6 (5-15); BUN/Creatinine Ratio 20.3 (10.0-20.0); Magnesium 2.3 mg/dL (1.6-2.6); Potassium 4.0 mmol/L (3.5-5.1); Total Protein 6.4 g/dL (5.7-8.2)
[2024-11-25 04:15] LABS: Alanine Aminotransferase 571 U/L (7-40); Bilirubin, Total 2.5 mg/dL (0.2-1.0); Blood Urea Nitrogen 26 mg/dL (9-23); Calcium 8.7 mg/dL (8.7-10.4); Carbon Dioxide 36 mmol/L (20-31); Chloride 110 mmol/L (98-107); Glucose 120 mg/dL (74-106); Sodium 152 mmol/L (136-145)
--- NOTE | 2024-11-25 05:30 | DVH ---
CHEST RADIOGRAPH Indication: RESPIRATORY FAILURE Technique: Single frontal view of the chest was obtained COMPARISON: CT CT ANGIO CHEST CONTRAST on DOS: 11/24/24, XY CHEST PORTABLE on DOS: 11/24/24, XY CHEST P ORTABLE on DOS: 11/24/24, XY CHEST PORTABLE on DOS: 11/23/24, XY CHEST PORTABLE on DOS: 11/22/24 FINDINGS: Lines and Tubes: Unchanged. Lungs: Grossly stable appearing moderate diffuse increased prominence of the pulmonary vasculature. No evidence of focal consolidation. Pleura: No effusion. No pneumothorax. Cardiomediastinal contours: Unremarkable Bones: Unremarkable IMPRESSION: 1. Stable appearing moderate diffuse increased prominence of the pulmonary vasculature. 2. Lines and tubes unchanged.
[2024-11-25 07:51] LABS: Base Excess 6.0 mmol/L (-2.0-3.0)
[2024-11-25] MEDS: FUROSEMIDE 20 MG/2 ML VIAL IV SCH (09:28)
--- NOTE | 2024-11-25 09:47 | DVHPN2 ---
Subjective Patient intubated and sedated. Reviewed: Care Plan, H&P, Labs, Medications Changes from previous H/P or p: No Changes General: Per HPI Objective Vitals Vital Signs Date Time Temp Pulse Resp B/P (MAP) Pulse Ox O2 Delivery O2 Flow Rate FiO2 11/25/24 09:28 101/67 11/25/24 09:05 58 18 100 40 11/25/24 08:00 Mechanical Ventilator+ 11/25/24 07:30 97.5 207.5 Intake/Output Intake and Output 11/25/24 07:00 Intake Total 2145.408 ml Output Total 2150 ml Balance -4.592 ml Intake Oral 30 ml IV Total 1647.408 ml Tube Feeding 468 ml Output Urine Total 2150 ml General Appearance: Other (Chemically sedated) HEENT: PERRLA Lungs: Normal air movement, Other (Mechanical Ventilation) Cardiovascular: Normal S1, Normal S2 Abdomen: Normal bowel sounds, Soft, No tenderness Genitourinary: No Apparent Abnormalities (Mayo catheter) Skin: Dry, Intact Psych/Mental Status: Other (Unable to assess) Medications Current Medications Medications Dose Ordered Sig/Dona Route Start Time Stop Time Status Last Admin Dose Admin Ondansetron HCl 4 mg Q4HP PRN IV 11/19/24 08:45 Docusate Sodium 100 mg BIDPRN PRN PO 11/19/24 08:45 Acetaminophen 650 mg Q6HP PRN PO 11/19/24 08:45 11/22/24 09:44 650 MG Nitroglycerin 0.4 mg Q5MINP PRN SL 11/19/24 08:45 Midazolam HCl 50 ml @ 1 mls/hr Q24H IV 11/19/24 09:15 11/25/24 07:39 4 MLS/HR Epinephrine HCl 250 ml @ 7.5 mls/hr Q24H IV 11/19/24 14:45 Piperacillin Sod/ Tazobactam Sod 100 ml @ 25 mls/hr Q8HR IV 11/19/24 22:00 11/25/24 06:31 25 MLS/HR Pantoprazole Sodium 40 mg DAILY IV 11/20/24 10:00 11/25/24 09:27 40 MG Octreotide Acetate 100 mcg TID SUBCUT 11/19/24 22:00 11/25/24 06:31 100 MCG Fentanyl Citrate 250 ml @ 2.5 mls/hr Q24H IV 11/20/24 01:30 11/22/24 20:34 7.5 MLS/HR Norepinephrine Bitartrate 32 mg/ Sodium Chloride 250 ml @ 0.938 mls/ hr Q24H IV 11/20/24 12:00 11/23/24 05:17 5.625 MLS/HR Enteral Nutritional Formula 1,000 ml 30ML/HR GT 11/21/24 08:45 11/23/24 22:24 1,000 ML Enoxaparin Sodium 80 mg Q12HR SC 11/24/24 22:00 11/25/24 09:37 80 MG Furosemide 20 mg DAILY IV 11/25/24 10:00 11/25/24 09:28 20 MG Laboratory Results Laboratory Tests 11/25/24 03:21 Chemistry Test 11/25/24 03:21 Albumin 3.7 g/dL (3.2-4.8) Calcium Level 8.7 mg/dL (8.7-10.4) Magnesium Level 2.3 mg/dL (1.6-2.6) Phosphorus Level 2.3 mg/dL (2.4-5.1) L Total Protein 6.4 g/dL (5.7-8.2) LFT Test 11/25/24 03:21 Alanine Aminotransferase (ALT) 571 U/L (7-40) H Alkaline Phosphatase 80 U/L (46-116) Aspartate Amino Transferase (AST) 107 U/L (13-40) H Total Bilirubin 2.5 mg/dL (0.2-1.0) H Urinalysis Test 11/19/24 08:35 Urine Color Yellow (Yellow) Urine Clarity Clear (Clear) Urine pH 5.5 (5.0-9.0) Urine Specific Hunter 1.017 (1.001-1.035) Urine Protein 1+ (Negative) H Urine Ketones Negative (Negative) Urine Blood 2+ /uL (Negative) H Urine Nitrite Negative (Negative) Urine Bilirubin Negative (Negative) Urine Urobilinogen Normal mg/dL (Negative) Urine Leukocyte Esterase Negative /uL (Negative) Urine RBC 33 /hpf (0 - 3) Urine Microscopic WBC 6 /HPF (0-3) H Urine Squamous Epithelial Cells Few /hpf (<5) Urine Bacteria None seen /hpf (None Seen) Urine Osmolality 518 mOsm/kg Urine Creatinine 104.97 mg/dL (30.0-125.0) Urine Protein/Creatinine Ratio 1.03 Urine Sodium 21 mmol/L (40-220) L Urine Glucose Normal mg/dL (Normal) Urine Total Protein 108.6 mg/dL (1-14) H Blood Gas Results Test 11/25/24 07:42 Arterial Blood pH 7.410 (7.350-7.450) FiO2 % 40.0 Microbiology Microbiology Date/Time Source Procedure Growth Status 11/23/24 09:12 Blood Blood Culture - Preliminary NO GROWTH AFTER 48 HOURS OF INCUBATION. Resulted 11/20/24 04:00 Nose MRSA Screen - Final Complete 11/19/24 09:42 Sputum Expectorated Sputum Gram Stain - Final Complete 11/19/24 09:42 Respiratory Culture - Final Streptococcus Group B Complete Labs and/or images reviewed: Labs reviewed by me, Image(s) reviewed by me Assessment/Plan Assessment/Plan Impression: -S/P cardiopulmonary arrest -Acute Hypoxic Respiratory Failure -Acute Decompensated Heart Failure -Hyperkalemia -Acute Kidney Injury/ VMN -Cardiogenic shock -Hx of Amphetamine use -NSTEMI type II -aspiration pneumonia Plan: Events: Norepinephrine drip 5 micrograms/minute. Stable. Minimal sedation. Questionable plans for left heart catheterization. -Start free watery given hypernatremia -continue Zosyn -cardiology consultation: Recommendations reviewed -Nephrology consult: Recommendations reviewed -PUD/DVT prophylaxis -Continue vent settings -Repeat labs, abg, and cxr in am. -plans for placement of new TLC to right IJ. Critical care time spent with patient discussing and formulating plan of care: 40 minutes. This does not include time spent performing procedures. This medical document was created using an electronic medical record system with [employer] dictation system. Although this document has been carefully reviewed, there may still be some phonetic and typographical errors. These areas are purely typographical due to imperfections of the software programs, and do not reflect any compromise in the patient's medical care. Plan discussed with: Patient, Other (RN) My Orders Orders - AURELIO ZAMARRIPA NP Procedure Category Date Status Time Nutritional PHA 11/25/24 Verified Supplements (Jevity 09:45 Free Water PHA 11/25/24 Verified 12:00 Date of Service: Nov 25, 2024 Billing Provider: AURELIO ZAMARRIPA NP Common Visit Codes: [id number] CARE 30-74 MIN AURELIO ZAMARRIPA NP Nov 25, 2024 09:47
[2024-11-25] MEDS: FREE WATER GT SCH (11:42)
[2024-11-25 13:12] LABS: INR 1.19 (0.9-1.15); Partial Thromboplastin Time 36.0 SEC (24.5-34.5); Prothrombin Time 12.4 sec (9.3-11.8)
--- NOTE | 2024-11-25 16:25 | DVHPN2 ---
Consult Progress Note Date Seen: Nov 25, 2024 Subjective Other Systems: No cardiac events reported Objective vital signs Vital Sign Date Time Temp Pulse Resp B/P (MAP) Pulse Ox O2 Delivery O2 Flow Rate FiO2 11/25/24 16:15 100.4 64 18 92/63 (73) 95 212.7 103/54 (70) 11/25/24 16:10 35 11/25/24 16:00 Mechanical Ventilator+ Total Intake and Output 11/24/24 11/24/24 11/25/24 15:00 23:00 07:00 Intake Total 513.720 ml 564.538 ml 1067.15 ml Output Total 1400 ml 750 ml Balance 513.720 ml -835.462 ml 317.15 ml medications Current Medications Medications Dose Ordered Sig/Dona Route Start Time Stop Time Status Last Admin Dose Admin Ondansetron HCl 4 mg Q4HP PRN IV 11/19/24 08:45 Docusate Sodium 100 mg BIDPRN PRN PO 11/19/24 08:45 Acetaminophen 650 mg Q6HP PRN PO 11/19/24 08:45 11/25/24 16:11 650 MG Nitroglycerin 0.4 mg Q5MINP PRN SL 11/19/24 08:45 Midazolam HCl 50 ml @ 1 mls/hr Q24H IV 11/19/24 09:15 11/25/24 07:39 4 MLS/HR Piperacillin Sod/ Tazobactam Sod 100 ml @ 25 mls/hr Q8HR IV 11/19/24 22:00 11/25/24 13:18 25 MLS/HR Pantoprazole Sodium 40 mg DAILY IV 11/20/24 10:00 11/25/24 09:27 40 MG Fentanyl Citrate 250 ml @ 2.5 mls/hr Q24H IV 11/20/24 01:30 11/25/24 13:19 12.5 MLS/HR Norepinephrine Bitartrate 32 mg/ Sodium Chloride 250 ml @ 0.938 mls/ hr Q24H IV 11/20/24 12:00 11/23/24 05:17 5.625 MLS/HR Enoxaparin Sodium 80 mg Q12HR SC 11/24/24 22:00 11/25/24 09:37 80 MG Furosemide 20 mg DAILY IV 11/25/24 10:00 11/25/24 09:28 20 MG Enteral Nutritional Formula 1,000 ml 50ML/HR GT 11/25/24 09:45 Purified Water 200 ml Q6HR GT 11/25/24 12:00 11/25/24 11:42 200 ML Examination: LUNGS:Abnormal (Endotracheally intubated 30% FiO2), CVS:Abnormal (shelter monitor: SR with T-wave inversion. On single-vasopressor), NEURO:Abnormal (Chemically sedated) laboratory and microbiology Laboratory Tests 11/25/24 03:21 Test 11/25/24 03:21 Range/Units Serum Glucose 120 H 74-106 mg/dL Problem List/Assessment/Plan Problem List/Assessment/Plan NSTEMI, questionable Type I Cardiopulmonary arrest status post CPR with ROSC Mixed shock, cardiogenic & septic [place], decompensated HFrEF, NYHA class IV Cardiomyopathy with LVEF of 10-15%, ?ischemic Non-sustained ventricular tachycardia (<3 sec) Acute hypoxic respiratory failure Acute kidney injury, resolving Shock liver, improving Hyperkalemia, resolved Methamphetamine/cannabinoid use PE ruled out Plan/Recommendations (Dr. Beatty) Transthoracic echocardiogram reveals an EF of 10-15% with severe global hypokinesis. Scheduled for a coronary angiogram with cardiac catheterization with Dr. Beatty on 11/26/2024. All risks and benefits of the procedure were discussed with sister/next of kin, Yolette Lai, over the phone who agrees to proceed with intervention. All questions answered. In the meantime, continue with therapeutic lovenox and vasopressor therapy for hemodynamic support. Continue preload reduction, strict intake & output, daily weights, and maintain fluid restriction. Continue Nephrology recommendations. Further recommendations per clinical course and progression. Thank you for allowing us to care for this patient. Please call with any questions or concerns. Critical care time spent: 30 minutes. This medical document was created using an electronic medical record system with voice recognition software and computerized dictation system. Although this document has been carefully reviewed, there might still be some phonetic and typographical errors. Occasional wrong-word or ``sound-alike substitutions may have occurred due to the inherent limitations of voice recognition software. These areas are purely typographical due to imperfections of the software programs and do not reflect any compromise in the patient's medical care. Please read the chart carefully and recognize, using context, where these substitutions have occurred. Plan discussed with: Other (Sister, primary RN) Dietary Evaluation Review Comments: Nutrition Recommendation: 1) TF Jevity 1.2Cal @ 70ml/hr x 24hr (goal rate) along with Pro-stat 1 pk daily. Start @ 20ml/hr, increase 10ml/hr Q4H until goal is reached. TF @ goal volume along with Pro-stat & Propofol provide 2116 kcal (100% energy needs), 108 gm protein (100% protein needs), 1356 ml free water. 2) Water flush 190 ml Q6H if allowed, adjust PRN 3) TPN if NPO >7 days 4) Monitor NPO status, lab values, wt trend, I/O Expected Outcomes/Goals: To meet >75% estimated needs Lab values to improve Fu 2-3 days Date of Service: Nov 25, 2024 Billing Provider: LORETTA FRIAS Cardiology Common Codes: [id number] CARE 30-74 MIN LORETTA FRIAS Nov 25, 2024 16:25
--- NOTE | 2024-11-25 16:40 | DVHPN2 ---
Progress Note Date Seen: Nov 25, 2024 Medical Necessity Reason Pt with a Central, PICC or Fol: No Subjective Patient reports: Other (Patient is intubated and sedated) Review of Systems: Deferred Objective vital signs Vital Sign Date Time Temp Pulse Resp B/P (MAP) Pulse Ox O2 Delivery O2 Flow Rate FiO2 11/25/24 16:15 100.4 64 18 92/63 (73) 95 212.7 103/54 (70) 11/25/24 16:10 35 11/25/24 16:00 Mechanical Ventilator+ Total Intake and Output 11/24/24 11/24/24 11/25/24 15:00 23:00 07:00 Intake Total 513.720 ml 564.538 ml 1067.15 ml Output Total 1400 ml 750 ml Balance 513.720 ml -835.462 ml 317.15 ml medications Current Medications Medications Dose Ordered Sig/Dona Route Start Time Stop Time Status Last Admin Dose Admin Ondansetron HCl 4 mg Q4HP PRN IV 11/19/24 08:45 Docusate Sodium 100 mg BIDPRN PRN PO 11/19/24 08:45 Acetaminophen 650 mg Q6HP PRN PO 11/19/24 08:45 11/25/24 16:11 650 MG Nitroglycerin 0.4 mg Q5MINP PRN SL 11/19/24 08:45 Midazolam HCl 50 ml @ 1 mls/hr Q24H IV 11/19/24 09:15 11/25/24 07:39 4 MLS/HR Piperacillin Sod/ Tazobactam Sod 100 ml @ 25 mls/hr Q8HR IV 11/19/24 22:00 11/25/24 13:18 25 MLS/HR Pantoprazole Sodium 40 mg DAILY IV 11/20/24 10:00 11/25/24 09:27 40 MG Fentanyl Citrate 250 ml @ 2.5 mls/hr Q24H IV 11/20/24 01:30 11/25/24 13:19 12.5 MLS/HR Norepinephrine Bitartrate 32 mg/ Sodium Chloride 250 ml @ 0.938 mls/ hr Q24H IV 11/20/24 12:00 11/23/24 05:17 5.625 MLS/HR Enoxaparin Sodium 80 mg Q12HR SC 11/24/24 22:00 11/25/24 09:37 80 MG Furosemide 20 mg DAILY IV 11/25/24 10:00 11/25/24 09:28 20 MG Enteral Nutritional Formula 1,000 ml 50ML/HR GT 11/25/24 09:45 Purified Water 200 ml Q6HR GT 11/25/24 12:00 11/25/24 11:42 200 ML Examination: GENERAL:Abnormal, LUNGS:Abnormal, MSK:Abnormal, NEURO:Abnormal laboratory and microbiology Laboratory Tests 11/25/24 03:21 Test 11/25/24 03:21 Range/Units Serum Glucose 120 H 74-106 mg/dL Microbiology Date/Time Source Procedure Growth Status 11/23/24 09:12 Blood Blood Culture - Preliminary NO GROWTH AFTER 48 HOURS OF INCUBATION. Resulted 11/20/24 04:00 Nose MRSA Screen - Final Complete 11/19/24 09:42 Sputum Expectorated Sputum Gram Stain - Final Complete 11/19/24 09:42 Respiratory Culture - Final Streptococcus Group B Complete Problem List/Assessment/Plan Problem List/Assessment/Plan Acute kidney injury superimposed Chronic Kidney Disease secondary hemodynamic mediated, FeNa < 1% Acute respiratory failure, patient intubated on ventilator Congestive heart failure exacerbation Pneumonia Bacteremia Hypokalemia Methamphetamine abuse NSTEMI Liver cirrhosis Jaundice Septic shock Mild proteinuria due to underlying chronic kidney disease Hyponatremia due to excessive water loss recs Hold diuretics as cardiac catheterization planned We will monitor renal function closely after cardiac catheterization free water for Na correction Plan discussed with: Other Dietary Evaluation Review Comments: Nutrition Recommendation: 1) TF Jevity 1.2Cal @ 70ml/hr x 24hr (goal rate) along with Pro-stat 1 pk daily. Start @ 20ml/hr, increase 10ml/hr Q4H until goal is reached. TF @ goal volume along with Pro-stat & Propofol provide 2116 kcal (100% energy needs), 108 gm protein (100% protein needs), 1356 ml free water. 2) Water flush 190 ml Q6H if allowed, adjust PRN 3) TPN if NPO >7 days 4) Monitor NPO status, lab values, wt trend, I/O Expected Outcomes/Goals: To meet >75% estimated needs Lab values to improve Fu 2-3 days ESTEBAN GARCIA MD Nov 25, 2024 16:40
[2024-11-25] MEDS: LIDOCAINE 1% (LOCAL ANESTH.) PF 5ml SDV ID ONE (18:22)
[2024-11-25] MEDS: SODIUM CHLOR 0.9% PF (SALINE LOCK) 10ML VIAL/SYR IV SCH (22:40)
[2024-11-26] VITALS (107 sets, daily range): BP systolic 89–130; BP diastolic 38–82; PULSE 50–60; RESP 11–20; TEMP 97.2–99.3; O2SAT 83–100
[2024-11-26 04:12] LABS: Albumin 3.3 g/dL (3.2-4.8); Alkaline Phosphatase 70 U/L (46-116); Anion Gap 9 (5-15); BUN/Creatinine Ratio 25.3 (10.0-20.0); Total Protein 5.9 g/dL (5.7-8.2)
[2024-11-26 04:17] LABS: Alanine Aminotransferase 360 U/L (7-40); Bilirubin, Total 1.6 mg/dL (0.2-1.0); Blood Urea Nitrogen 24 mg/dL (9-23); Calcium 8.5 mg/dL (8.7-10.4); Carbon Dioxide 33 mmol/L (20-31); Chloride 112 mmol/L (98-107); Glucose 150 mg/dL (74-106); Potassium 3.0 mmol/L (3.5-5.1); Sodium 154 mmol/L (136-145)
[2024-11-26 04:24] LABS: Hematocrit 46.6 % (41.0-53.0); Hemoglobin 15.5 g/dL (13.5-17.5); Mean Corpuscular Hemoglobin 30.8 pg (28.0-32.0); Mean Corpuscular Volume 92.5 fL (80.0-100.0); Nucleated Red Blood Cells % 0.1 %
[2024-11-26 05:18] LABS: INR 1.18 (0.9-1.15); Partial Thromboplastin Time 36.2 SEC (24.5-34.5); Prothrombin Time 12.3 sec (9.3-11.8)
[2024-11-26] MEDS: POTASSIUM CHL 20MEQ/100ML 100 ML IV SCH (05:42)
--- NOTE | 2024-11-26 05:43 | DVH ---
Exam: US US GUIDED VASCULAR ACCESS Clinical History: PICC Comparison: CT CT ANGIO NECK CONTRAST on DOS: 11/24/24, US BILAT LOWER DVT on DOS: 11/24/24 Technique: Targeted sonographic evaluation of the soft tissues of the arm vein was obtained utilizing grayscale and color Doppler imaging. Findings/Impression: Sonographic assistance for PICC placement. Please refer to procedural report for detailed findings.
--- NOTE | 2024-11-26 05:45 | DVH ---
CHEST RADIOGRAPH Indication: Intubated Technique: Single frontal view of the chest was obtained COMPARISON: XY CHEST PORTABLE on DOS: 11/25/24, CT CT ANGIO CHEST CONTRAST on DOS: 11/24/24, XY CHEST P ORTABLE on DOS: 11/24/24, XY CHEST PORTABLE on DOS: 11/24/24, XY CHEST PORTABLE on DOS: 11/23/24 FINDINGS: Lines and Tubes: Unchanged. Lungs: Clear Pleura: No effusion. No pneumothorax. Cardiomediastinal contours: Unremarkable Bones: Unremarkable IMPRESSION: 1. No acute cardiopulmonary disease. 2. Lines and tubes unchanged.
[2024-11-26 07:01] LABS: Base Excess 9.2 mmol/L (-2.0-3.0)
--- NOTE | 2024-11-26 09:18 | DVHPN2 ---
Subjective Patient intubated and sedated. Reviewed: Care Plan, H&P, Labs, Medications Changes from previous H/P or p: No Changes General: Per HPI Objective Vitals Vital Signs Date Time Temp Pulse Resp B/P (MAP) Pulse Ox O2 Delivery O2 Flow Rate FiO2 11/26/24 08:46 100/64 11/26/24 07:42 58 18 97 Mechanical Ventilator+ 35 35 11/26/24 06:30 98.1 208.6 Intake/Output Intake and Output 11/26/24 07:00 Intake Total 2047.308 ml Output Total 1125 ml Balance 922.308 ml Intake Oral 600 ml IV Total 767.308 ml Tube Feeding 680 ml Output Urine Total 1125 ml General Appearance: moderate distress, Other (Chemically sedated) HEENT: PERRLA Lungs: Normal air movement, Other (Mechanical Ventilation) Cardiovascular: Normal S1, Normal S2, Other (Sinus bradycardia) Abdomen: Normal bowel sounds, Soft, No tenderness Genitourinary: No Apparent Abnormalities (Mayo catheter) Skin: Dry, Intact Psych/Mental Status: Other (Unable to assess) Medications Current Medications Medications Dose Ordered Sig/Dona Route Start Time Stop Time Status Last Admin Dose Admin Ondansetron HCl 4 mg Q4HP PRN IV 11/19/24 08:45 Docusate Sodium 100 mg BIDPRN PRN PO 11/19/24 08:45 Acetaminophen 650 mg Q6HP PRN PO 11/19/24 08:45 11/25/24 16:11 650 MG Nitroglycerin 0.4 mg Q5MINP PRN SL 11/19/24 08:45 Midazolam HCl 50 ml @ 1 mls/hr Q24H IV 11/19/24 09:15 11/26/24 08:44 8 MLS/HR Piperacillin Sod/ Tazobactam Sod 100 ml @ 25 mls/hr Q8HR IV 11/19/24 22:00 11/26/24 05:42 25 MLS/HR Pantoprazole Sodium 40 mg DAILY IV 11/20/24 10:00 11/26/24 08:45 40 MG Fentanyl Citrate 250 ml @ 2.5 mls/hr Q24H IV 11/20/24 01:30 11/26/24 08:46 12.5 MLS/HR Norepinephrine Bitartrate 32 mg/ Sodium Chloride 250 ml @ 0.938 mls/ hr Q24H IV 11/20/24 12:00 11/23/24 05:17 5.625 MLS/HR Enteral Nutritional Formula 1,000 ml 50ML/HR GT 11/25/24 09:45 Purified Water 200 ml Q6HR GT 11/25/24 12:00 11/26/24 00:00 200 ML Sodium Chloride 10 ml QSHIFT@10,22 IV 11/25/24 22:00 11/26/24 08:45 10 ML Laboratory Results Laboratory Tests 11/26/24 03:08 Chemistry Test 11/26/24 03:08 Albumin 3.3 g/dL (3.2-4.8) Calcium Level 8.5 mg/dL (8.7-10.4) L Total Protein 5.9 g/dL (5.7-8.2) Coagulation Test 11/25/24 12:26 11/26/24 03:08 Prothrombin Time 12.4 sec (9.3-11.8) H 12.3 sec (9.3-11.8) H Prothrombin Time INR 1.19 (0.9-1.15) H 1.18 (0.9-1.15) H Activated Partial Thromboplast Time 36.0 SEC (24.5-34.5) H 36.2 SEC (24.5-34.5) H LFT Test 11/26/24 03:08 Alanine Aminotransferase (ALT) 360 U/L (7-40) H Alkaline Phosphatase 70 U/L (46-116) Aspartate Amino Transferase (AST) 69 U/L (13-40) H Total Bilirubin 1.6 mg/dL (0.2-1.0) H Urinalysis Test 11/19/24 08:35 Urine Color Yellow (Yellow) Urine Clarity Clear (Clear) Urine pH 5.5 (5.0-9.0) Urine Specific Charlo 1.017 (1.001-1.035) Urine Protein 1+ (Negative) H Urine Ketones Negative (Negative) Urine Blood 2+ /uL (Negative) H Urine Nitrite Negative (Negative) Urine Bilirubin Negative (Negative) Urine Urobilinogen Normal mg/dL (Negative) Urine Leukocyte Esterase Negative /uL (Negative) Urine RBC 33 /hpf (0 - 3) Urine Microscopic WBC 6 /HPF (0-3) H Urine Squamous Epithelial Cells Few /hpf (<5) Urine Bacteria None seen /hpf (None Seen) Urine Osmolality 518 mOsm/kg Urine Creatinine 104.97 mg/dL (30.0-125.0) Urine Protein/Creatinine Ratio 1.03 Urine Sodium 21 mmol/L (40-220) L Urine Glucose Normal mg/dL (Normal) Urine Total Protein 108.6 mg/dL (1-14) H Blood Gas Results Test 11/26/24 06:47 Arterial Blood pH 7.433 (7.350-7.450) FiO2 % 35.0 Microbiology Microbiology Date/Time Source Procedure Growth Status 11/23/24 09:12 Blood Blood Culture - Preliminary NO GROWTH AFTER 48 HOURS OF INCUBATION. Resulted 11/20/24 04:00 Nose MRSA Screen - Final Complete 11/19/24 09:42 Sputum Expectorated Sputum Gram Stain - Final Complete 11/19/24 09:42 Respiratory Culture - Final Streptococcus Group B Complete Labs and/or images reviewed: Labs reviewed by me, Image(s) reviewed by me Assessment/Plan Assessment/Plan Impression: -S/P cardiopulmonary arrest -Acute Hypoxic Respiratory Failure -Acute Decompensated Heart Failure -Hyperkalemia -Acute Kidney Injury/ VMN -Cardiogenic shock -Hx of Amphetamine use -NSTEMI type II -aspiration pneumonia Plan: Events: Patient on low-dose Levophed drip at 2 micrograms/minute. Plans for left heart catheterization today. Continues to have hypernatremia. -hold Lovenox today -continue free water, start half NS -continue Zosyn -cardiology consultation: Recommendations reviewed -Nephrology consult: Recommendations reviewed -PUD/DVT prophylaxis -Continue vent settings -Repeat labs, abg, and cxr in am. -PICC line placed. Remove left IJ central line Critical care time spent with patient discussing and formulating plan of care: 40 minutes. This does not include time spent performing procedures. This medical document was created using an electronic medical record system with [employer] dictation system. Although this document has been carefully reviewed, there may still be some phonetic and typographical errors. These areas are purely typographical due to imperfections of the software programs, and do not reflect any compromise in the patient's medical care. Plan discussed with: Patient, Other (RN) My Orders Orders - AURELIO ZAMARRIPA [employer] Procedure Category Date Status Time Nutritional PHA 11/25/24 In Process Supplements (Jevity 09:45 Free Water PHA 11/25/24 In Process 12:00 * Picc Line Consult CONS 11/25/24 Transmitted 12:28 Us Guided Vascular US 11/25/24 Resulted Access 18:05 Nursing Protocol Picc [facility] 11/25/24 In Process 18:05 Change Dressing Prn [facility] 11/25/24 In Process 18:05 Sodium Chloride Lock PHA 11/25/24 In Process (Saline Lock Ns) 22:00 Do Not Use Picc For [facility] 11/25/24 In Process Blood Cult 18:05 May Draw Blood From [facility] 11/25/24 In Process Picc 18:05 Ok To Use Picc [facility] 11/25/24 In Process 18:05 Change Picc Dressing [facility] 11/25/24 In Process Q7 Days 18:05 Chest Portable XY 11/26/24 Resulted 04:00 Abg W/ Co-Ox RT 11/26/24 Logged 06:00 Sod Chl 0.45% (Sodium PHA 11/26/24 Logged Chloride 0.45% Via 09:15 Potassium LAB 11/26/24 Logged 14:00 Magnesium LAB 11/26/24 Logged 14:00 Basic Metabolic Panel LAB 11/27/24 Verified 04:00 Magnesium LAB 11/27/24 Verified 04:00 Date of Service: Nov 26, 2024 Billing Provider: AURELIO ZAMARRIPA NP Common Visit Codes: [id number] CARE 30-74 MIN AURELIO ZAMARRIPA NP Nov 26, 2024 09:18
[2024-11-26] MEDS: SOD CHL 0.45% 1,000 ML IV ONE (10:53)
[2024-11-26 14:10] LABS: Potassium 3.6 mmol/L (3.5-5.1)
[2024-11-26 14:17] LABS: Magnesium 2.0 mg/dL (1.6-2.6)
[2024-11-26] MEDS: IODIXANOL 320MG/ML 100ML BTL IV ONE (14:22)
[2024-11-26] MEDS: LIDOCAINE 2%HCL (LOCAL ANESTH.) INJ 20ML MDV ONE (15:04)
[2024-11-26] MEDS: ANGIOMAX 250 MG VIAL IV ONE (15:04)
[2024-11-26] MEDS: SODIUM CHL 0.9% 0 ML ONE (15:04)
--- NOTE | 2024-11-26 18:02 | DVHOP2 ---
Operative Report - 2 Report Details Date: 11/26/24 Preop Diagnosis: CAD Postop Diagnosis: CAD Surgeon: Janet Beatty MD Anesthesiologist: Conscious sedation Anesthesia: Mac, Local Consent: The patient was informed of the risks and benefits of the procedure. These include but are not limited to complications of anesthesia, postoperative infection, incomplete relief of symptoms, recurrence of symptoms, damage to blood vessels, nerves and tendons, deep venous thrombosis, pulmonary embolism and possible need for repeat surgery in the future. Complications: No complications Findings: Severe CAD Indications for Surgery: Cardiomyopathy. Congestive heart failure. Name of Procedure Performed Left heart catheterization. Bilateral cine coronary angiography. Left ventriculography. Procedure Details Procedure Details: Prior local anesthesia with 2% lidocaine to the right groin and full informed consent obtained the patient was prepped and draped in usual fashion followed by placement of a six Divehi sheath into the femoral artery through which Jose catheters were used right and left coronary ostia and ventriculography. No complications. Hemodynamics aortic blood pressure was 130/70. End-diastolic pressure was eig ht. There was no gradient across the aortic valve on pullback Coronary anatomy: Left main is very short but normal. It gives off the circumflex that has a proximal eccentric 60-70% lesion it appears to be calcified. It seems titer in some views. It has ONEYDA three flow. There appears to be a somewhat of a significant lesion proximally. Left anterior descending coronary artery is a large vessel. There is a 99% stenosis at its proximal portion of the bifurcation of the diagonal. There is faint filling of the LAD. At the bifurcation the majority of flow is directed towards the diagonal. The right coronary artery is a large vessel it has severe stenosis at its midportion. There is faint flow into the distal segment of the artery. There are two to three segments of significantly calcified lesions that impair flow and provide ONEYDA one flow to the distal posterolateral. Ventriculography in the GARCIA projection shows a dilated left ventricle with severe global hypokinesis. Left ventricular ejection fraction is approximately 10-15% at best. Recommendations: This patient is at an extremely high risk for coronary intervention. If neurologically and physically is considered viable a high-risk intervention with an Impella assisted circulatory device should be used to revascularize the RCA and left anterior descending coronary arteries. A myocardial viability study should also be considered prior to considering an intervention. We will discuss with family primary care physician. Condition Poor Disposition Still a Patient Date of Service: Nov 26, 2024 Billing Provider: JANET BEATTY Sr., MD Cardiology Common Codes: [id number] INP/OBS CARE (High) Cardiology Procedure Codes: 76122-J HEART CATH RORY 02SAT JANET BEATTY Sr., MD Nov 26, 2024 18:02
--- NOTE | 2024-11-26 19:37 | DVHPN2 ---
Progress Note Date Seen: Nov 26, 2024 Medical Necessity Reason Pt with a Central, PICC or Fol: No Subjective Patient reports: Other (Patient remains intubated) Review of Systems: Deferred Objective vital signs Vital Sign Date Time Temp Pulse Resp B/P (MAP) Pulse Ox O2 Delivery O2 Flow Rate FiO2 11/26/24 18:51 54 18 93/41 (58) 98 30 11/26/24 18:15 97.3 207.1 11/26/24 18:10 Mechanical Ventilator+ Total Intake and Output 11/25/24 11/25/24 11/26/24 15:00 23:00 07:00 Intake Total 280.469 ml 1066.226 ml 700.613 ml Output Total 900 ml 225 ml Balance 280.469 ml 166.226 ml 475.613 ml medications Current Medications Medications Dose Ordered Sig/Dona Route Start Time Stop Time Status Last Admin Dose Admin Ondansetron HCl 4 mg Q4HP PRN IV 11/19/24 08:45 Docusate Sodium 100 mg BIDPRN PRN PO 11/19/24 08:45 Acetaminophen 650 mg Q6HP PRN PO 11/19/24 08:45 11/25/24 16:11 650 MG Nitroglycerin 0.4 mg Q5MINP PRN SL 11/19/24 08:45 Midazolam HCl 50 ml @ 1 mls/hr Q24H IV 11/19/24 09:15 11/26/24 17:35 11 MLS/HR Piperacillin Sod/ Tazobactam Sod 100 ml @ 25 mls/hr Q8HR IV 11/19/24 22:00 11/26/24 14:20 25 MLS/HR Pantoprazole Sodium 40 mg DAILY IV 11/20/24 10:00 11/26/24 08:45 40 MG Fentanyl Citrate 250 ml @ 2.5 mls/hr Q24H IV 11/20/24 01:30 11/26/24 08:46 12.5 MLS/HR Norepinephrine Bitartrate 32 mg/ Sodium Chloride 250 ml @ 0.938 mls/ hr Q24H IV 11/20/24 12:00 11/23/24 05:17 5.625 MLS/HR Enteral Nutritional Formula 1,000 ml 50ML/HR GT 11/25/24 09:45 Purified Water 200 ml Q6HR GT 11/25/24 12:00 11/26/24 17:35 200 ML Sodium Chloride 10 ml QSHIFT@10,22 IV 11/25/24 22:00 11/26/24 08:45 10 ML Examination: GENERAL:Abnormal, MSK:Abnormal, SKIN:Abnormal, NEURO:Abnormal laboratory and microbiology Laboratory Tests 11/26/24 13:50 11/26/24 03:08 Test 11/26/24 03:08 Range/Units Serum Glucose 150 H 74-106 mg/dL Microbiology Date/Time Source Procedure Growth Status 11/23/24 09:12 Blood Blood Culture - Preliminary NO GROWTH AFTER 72 HOURS OF INCUBATION. Resulted 11/20/24 04:00 Nose MRSA Screen - Final Complete 11/19/24 09:42 Sputum Expectorated Sputum Gram Stain - Final Complete 11/19/24 09:42 Respiratory Culture - Final Streptococcus Group B Complete Problem List/Assessment/Plan Problem List/Assessment/Plan Acute kidney injury superimposed Chronic Kidney Disease secondary hemodynamic mediated, FeNa < 1% Acute respiratory failure, patient intubated on ventilator Congestive heart failure exacerbation Pneumonia Bacteremia Hypokalemia Methamphetamine abuse NSTEMI Liver cirrhosis Jaundice Septic shock Mild proteinuria due to underlying chronic kidney disease Hypernatremia due to excessive water loss recs Half NS for 1 L --sodium high Hold diuretics as cardiac catheterization planned we will resume on diuretics tomorrow We will monitor renal function closely after cardiac catheterization free water for Na correction K replace p.r.n. Plan discussed with: Other Dietary Evaluation Review Comments: Nutrition Recommendation: 1) TF Jevity 1.2Cal @ 70ml/hr x 24hr (goal rate) along with Pro-stat 1 pk daily. Start @ 20ml/hr, increase 10ml/hr Q4H until goal is reached. TF @ goal volume along with Pro-stat & Propofol provide 2116 kcal (100% energy needs), 108 gm protein (100% protein needs), 1356 ml free water. 2) Water flush 190 ml Q6H if allowed, adjust PRN 3) TPN if NPO >7 days 4) Monitor NPO status, lab values, wt trend, I/O Expected Outcomes/Goals: To meet >75% estimated needs Lab values to improve Fu 2-3 days ESTEBAN GARCIA MD Nov 26, 2024 19:37
--- NOTE | 2024-11-26 20:58 | DVH ---
CHEST RADIOGRAPH Indication: check ET tube placement Technique: Single frontal view of the chest was obtained Comparison: XY CHEST PORTABLE on DOS: 11/26/24, XY CHEST PORTABLE on DOS: 11/25/24, CT CT ANGIO CHEST C ONTRAST on DOS: 11/24/24 FINDINGS: Enteric tube below the left diaphragm in the stomach is not visualized in this image Lines and Tubes: Endotracheal tube 5.2 cm above the pelon. PICC line from right arm in place with th e tip in the superior vena cava cavoatrial junction. Lungs: Cardiopulmonary findings stable and unchanged from 0531 a.m. done same day. Pleura: No effusion. No pneumothorax. Cardiomediastinal contours: Unremarkable Bones: No acute osseous abnormality. IMPRESSION: 1. Lines and tubes in appropriate position. 2. No significant change compared to prior exam.
[2024-11-27] VITALS (108 sets, daily range): BP systolic 91–271; BP diastolic 42–77; PULSE 50–83; RESP 15–21; TEMP 98.5–100; O2SAT 91–99
[2024-11-27 03:53] LABS: Hematocrit 44.1 % (41.0-53.0); Hemoglobin 14.7 g/dL (13.5-17.5); Mean Corpuscular Hemoglobin 30.9 pg (28.0-32.0); Mean Corpuscular Volume 92.7 fL (80.0-100.0); Nucleated Red Blood Cells % 0.0 %
[2024-11-27 03:55] LABS: Albumin 3.3 g/dL (3.2-4.8); Alkaline Phosphatase 72 U/L (46-116); Anion Gap 8 (5-15); BUN/Creatinine Ratio 17.6 (10.0-20.0); Blood Urea Nitrogen 19 mg/dL (9-23); Glucose 83 mg/dL (74-106); Magnesium 2.1 mg/dL (1.6-2.6); Potassium 3.7 mmol/L (3.5-5.1); Total Protein 5.8 g/dL (5.7-8.2)
[2024-11-27 04:08] LABS: Alanine Aminotransferase 262 U/L (7-40); Calcium 8.4 mg/dL (8.7-10.4); Carbon Dioxide 31 mmol/L (20-31); Chloride 113 mmol/L (98-107); Sodium 152 mmol/L (136-145)
[2024-11-27 04:09] LABS: Bilirubin, Total 1.3 mg/dL (0.2-1.0)
--- NOTE | 2024-11-27 05:54 | DVH ---
CHEST RADIOGRAPH Indication: pneumonia Technique: Single frontal view of the chest was obtained COMPARISON: XY CHEST PORTABLE on DOS: 11/26/24, XY CHEST PORTABLE on DOS: 11/26/24, XY CHEST PORTABLE o n DOS: 11/25/24, CT CT ANGIO CHEST CONTRAST on DOS: 11/24/24, XY CHEST PORTABLE on DOS: 11/24/24 FINDINGS: Lines and Tubes: Endotracheal tube, enteric catheter, and right PICC in satisfactory position. Lungs: Mild pulmonary vascular congestion, unchanged. Pleura: No effusion.No pneumothorax. Cardiomediastinal contours: Unremarkable. Bones: Unremarkable. IMPRESSION: Lines and tubes in satisfactory position. No significant interval change.
[2024-11-27 07:41] LABS: Base Excess 5.1 mmol/L (-2.0-3.0)
--- NOTE | 2024-11-27 08:48 | DVHPN2 ---
Subjective Patient intubated and sedated. Reviewed: Care Plan, H&P, Labs, Medications Changes from previous H/P or p: Changes General: Per HPI Objective Vitals Vital Signs Date Time Temp Pulse Resp B/P (MAP) Pulse Ox O2 Delivery O2 Flow Rate FiO2 11/27/24 08:01 30 11/27/24 08:00 99.5 58 18 102/66 (78) 95 211.1 104/50 (68) 11/27/24 08:00 Mechanical Ventilator+ Intake/Output Intake and Output 11/27/24 07:00 Intake Total 3118.381 ml Output Total 950 ml Balance 2168.381 ml Intake Oral 460 ml IV Total 2608.381 ml Tube Feeding 50 ml Output Urine Total 950 ml General Appearance: moderate distress, Other (Chemically sedated) HEENT: PERRLA Lungs: Normal air movement, Other (Mechanical Ventilation) Cardiovascular: Normal S1, Normal S2, Other (Sinus bradycardia) Abdomen: Normal bowel sounds, Soft, No tenderness Genitourinary: No Apparent Abnormalities (Mayo catheter) Skin: Dry, Intact Psych/Mental Status: Other (Unable to assess) Medications Current Medications Medications Dose Ordered Sig/Dona Route Start Time Stop Time Status Last Admin Dose Admin Ondansetron HCl 4 mg Q4HP PRN IV 11/19/24 08:45 Docusate Sodium 100 mg BIDPRN PRN PO 11/19/24 08:45 Acetaminophen 650 mg Q6HP PRN PO 11/19/24 08:45 11/25/24 16:11 650 MG Nitroglycerin 0.4 mg Q5MINP PRN SL 11/19/24 08:45 Midazolam HCl 50 ml @ 1 mls/hr Q24H IV 11/19/24 09:15 11/27/24 05:00 11 MLS/HR Piperacillin Sod/ Tazobactam Sod 100 ml @ 25 mls/hr Q8HR IV 11/19/24 22:00 11/27/24 05:01 25 MLS/HR Pantoprazole Sodium 40 mg DAILY IV 11/20/24 10:00 11/27/24 07:24 40 MG Fentanyl Citrate 250 ml @ 2.5 mls/hr Q24H IV 11/20/24 01:30 11/26/24 23:01 17.5 MLS/HR Norepinephrine Bitartrate 32 mg/ Sodium Chloride 250 ml @ 0.938 mls/ hr Q24H IV 11/20/24 12:00 11/23/24 05:17 5.625 MLS/HR Enteral Nutritional Formula 1,000 ml 50ML/HR GT 11/25/24 09:45 Purified Water 200 ml Q6HR GT 11/25/24 12:00 11/27/24 05:01 200 ML Sodium Chloride 10 ml QSHIFT@10,22 IV 11/25/24 22:00 11/27/24 07:24 10 ML Laboratory Results Laboratory Tests 11/27/24 02:45 Chemistry Test 11/26/24 13:50 11/27/24 02:45 Magnesium Level 2.0 mg/dL (1.6-2.6) 2.1 mg/dL (1.6-2.6) Albumin 3.3 g/dL (3.2-4.8) Calcium Level 8.4 mg/dL (8.7-10.4) L Total Protein 5.8 g/dL (5.7-8.2) LFT Test 11/27/24 02:45 Alanine Aminotransferase (ALT) 262 U/L (7-40) H Alkaline Phosphatase 72 U/L (46-116) Aspartate Amino Transferase (AST) 59 U/L (13-40) H Total Bilirubin 1.3 mg/dL (0.2-1.0) H Urinalysis Test 11/19/24 08:35 Urine Color Yellow (Yellow) Urine Clarity Clear (Clear) Urine pH 5.5 (5.0-9.0) Urine Specific [place] 1.017 (1.001-1.035) Urine Protein 1+ (Negative) H Urine Ketones Negative (Negative) Urine Blood 2+ /uL (Negative) H Urine Nitrite Negative (Negative) Urine Bilirubin Negative (Negative) Urine Urobilinogen Normal mg/dL (Negative) Urine Leukocyte Esterase Negative /uL (Negative) Urine RBC 33 /hpf (0 - 3) Urine Microscopic WBC 6 /HPF (0-3) H Urine Squamous Epithelial Cells Few /hpf (<5) Urine Bacteria None seen /hpf (None Seen) Urine Osmolality 518 mOsm/kg Urine Creatinine 104.97 mg/dL (30.0-125.0) Urine Protein/Creatinine Ratio 1.03 Urine Sodium 21 mmol/L (40-220) L Urine Glucose Normal mg/dL (Normal) Urine Total Protein 108.6 mg/dL (1-14) H Blood Gas Results Test 11/27/24 07:02 Arterial Blood pH 7.401 (7.350-7.450) FiO2 % 30.0 Microbiology Microbiology Date/Time Source Procedure Growth Status 11/23/24 09:12 Blood Blood Culture - Preliminary NO GROWTH AFTER 72 HOURS OF INCUBATION. Resulted 11/20/24 04:00 Nose MRSA Screen - Final Complete 11/19/24 09:42 Sputum Expectorated Sputum Gram Stain - Final Complete 11/19/24 09:42 Respiratory Culture - Final Streptococcus Group B Complete Labs and/or images reviewed: Labs reviewed by me, Image(s) reviewed by me Assessment/Plan Assessment/Plan Impression: -S/P cardiopulmonary arrest -Acute Hypoxic Respiratory Failure -Acute Decompensated Heart Failure -Hyperkalemia -Acute Kidney Injury/ VMN -Cardiogenic shock -Hx of Amphetamine use -NSTEMI type II -aspiration pneumonia Plan: Events: Patient currently heavily sedated. Discussed with primary nurse plan of care including continuing anticoagulation, and proceeding with spontaneous breathing trial after weaning sedation. Discussed left heart catheterization findings with Dr. Beatty during procedure yesterday. Intervention held at this time. -continue full-dose anticoagulation -continue free water, start half NS -continue Zosyn -cardiology consultation: Recommendations reviewed -Nephrology consult: Recommendations reviewed -PUD/DVT prophylaxis -Continue vent settings -Repeat labs, abg, and cxr in am. Critical care time spent with patient discussing and formulating plan of care: 40 minutes. This does not include time spent performing procedures. This medical document was created using an electronic medical record system with [employer] dictation system. Although this document has been carefully reviewed, there may still be some phonetic and typographical errors. These areas are purely typographical due to imperfections of the software programs, and do not reflect any compromise in the patient's medical care. Plan discussed with: Patient, Other (RN, sister) My Orders Orders - AURELIO ZAMARRIPA NP Procedure Category Date Status Time Abg W/ Co-Ox RT 11/27/24 Logged 07:00 Date of Service: Nov 27, 2024 Billing Provider: AURELIO ZAMARRIPA NP Common Visit Codes: [id number] INP/OBS CARE(HIGH) AURELIO ZAMARRIPA NP Nov 27, 2024 08:48
[2024-11-27] MEDS: ENOXAPARIN SOD 80 MG/0.8ML SYRINGE SC SCH (10:57)
--- NOTE | 2024-11-27 10:57 | DVHPN2 ---
Consult Progress Note Subjective Other Systems: Patient in sinus bradycardia with biphasic P waves on site monitor Patient remains chemically sedated and mechanically ventilated Objective vital signs Vital Sign Date Time Temp Pulse Resp B/P (MAP) Pulse Ox O2 Delivery O2 Flow Rate FiO2 11/27/24 10:45 99.5 54 18 101/63 (76) 97 211.1 104/48 (66) 11/27/24 09:58 30 11/27/24 09:57 Mechanical Ventilator+ Total Intake and Output 11/26/24 11/26/24 11/27/24 15:00 23:00 07:00 Intake Total 727.066 ml 1639.252 ml 752.063 ml Output Total 250 ml 700 ml Balance 727.066 ml 1389.252 ml 52.063 ml medications Current Medications Medications Dose Ordered Sig/Dona Route Start Time Stop Time Status Last Admin Dose Admin Ondansetron HCl 4 mg Q4HP PRN IV 11/19/24 08:45 Docusate Sodium 100 mg BIDPRN PRN PO 11/19/24 08:45 Acetaminophen 650 mg Q6HP PRN PO 11/19/24 08:45 11/25/24 16:11 650 MG Nitroglycerin 0.4 mg Q5MINP PRN SL 11/19/24 08:45 Midazolam HCl 50 ml @ 1 mls/hr Q24H IV 11/19/24 09:15 11/27/24 09:22 10 MLS/HR Piperacillin Sod/ Tazobactam Sod 100 ml @ 25 mls/hr Q8HR IV 11/19/24 22:00 11/27/24 05:01 25 MLS/HR Pantoprazole Sodium 40 mg DAILY IV 11/20/24 10:00 11/27/24 07:24 40 MG Fentanyl Citrate 250 ml @ 2.5 mls/hr Q24H IV 11/20/24 01:30 11/26/24 23:01 17.5 MLS/HR Norepinephrine Bitartrate 32 mg/ Sodium Chloride 250 ml @ 0.938 mls/ hr Q24H IV 11/20/24 12:00 11/23/24 05:17 5.625 MLS/HR Enteral Nutritional Formula 1,000 ml 50ML/HR GT 11/25/24 09:45 Purified Water 200 ml Q6HR GT 11/25/24 12:00 11/27/24 05:01 200 ML Sodium Chloride 10 ml QSHIFT@10,22 IV 11/25/24 22:00 11/27/24 07:24 10 ML Enoxaparin Sodium 80 mg Q12HR SC 11/27/24 10:00 Examination: GENERAL:Abnormal, LUNGS:Abnormal (Mechanically ventilated), CVS:Normal, NEURO:Abnormal (Chemically sedated) laboratory and microbiology Laboratory Tests 11/27/24 02:45 Test 11/27/24 02:45 Range/Units Serum Glucose 83 74-106 mg/dL Problem List/Assessment/Plan Problem List/Assessment/Plan Cardiopulmonary arrest status post CPR with ROSC Mixed shock, cardiogenic versus septic [place], decompensated HFrEF, NYHA class IV NSTEMI, with severe coronary artery disease Moderate tricuspid valve regurgitation Acute hypoxic respiratory failure Acute kidney injury Bacteremia Hyperkalemia, resolved Shock liver History of methamphetamine use Plan/Recommendations (Dr. Beatty): Transthoracic echocardiogram reveals an EF of 10-15% with severe global hypokinesis. Unable to initiate guideline directed medical therapy for CHF at this time given vasopressor therapy for hemodynamic support. The patient underwent a coronary angiogram with left heart catheterization on 11/26/2024 which revealed left anterior descending coronary artery stenosis as well as right coronary artery stenosis. The patient is an extremely high risk for coronary intervention. No intervention was done at time of angiography. Spoke with patient's sister, Yolette regarding results of coronary angiogram. Explained in full detail about the high risk for coronary intervention. She reports that the patient was on hospice care prior to admission, but states that it was for the "extra help" and not necessarily for end of life care. Patient's sister Yolette states that she did not know that the patient had congestive heart failure with a low ejection fraction, and claims that the patient himself was not very well aware of his overall health. At this time, Yolette would like time to consider any further coronary intervention. Thank you for allowing us to care for this patient. Please call with any questions or concerns. Critical care time spent: 38 minutes. This medical document was created using an electronic medical record system with voice recognition software and computerized dictation system. Although this document has been carefully reviewed, there might still be some phonetic and typographical errors. Occasional wrong-word or ``sound-alike substitutions may have occurred due to the inherent limitations of voice recognition software. These areas are purely typographical due to imperfections of the software programs and do not reflect any compromise in the patient's medical care. Please read the chart carefully and recognize, using context, where these substitutions have occurred. Plan discussed with: Other (Patient's sister Yolette) Dietary Evaluation Review Comments: Nutrition Recommendation: 1) TF Jevity 1.2Cal @ 70ml/hr x 24hr (goal rate) along with Pro-stat 1 pk daily. Start @ 20ml/hr, increase 10ml/hr Q4H until goal is reached. TF @ goal volume along with Pro-stat & Propofol provide 2116 kcal (100% energy needs), 108 gm protein (100% protein needs), 1356 ml free water. 2) Water flush 190 ml Q6H if allowed, adjust PRN 3) TPN if NPO >7 days 4) Monitor NPO status, lab values, wt trend, I/O Expected Outcomes/Goals: To meet >75% estimated needs Lab values to improve Fu 2-3 days Date of Service: Nov 27, 2024 Billing Provider: HEMA SCHWARZ Common Visit Codes: [id number] CARE 30-74 MIN HEMA SCHWARZ Nov 27, 2024 10:57
[2024-11-27] MEDS: D5W 5% 1,000 ML IV SCH (15:19)
--- NOTE | 2024-11-27 16:13 | DVHPN2 ---
Progress Note Date Seen: Nov 27, 2024 Medical Necessity Reason Pt with a Central, PICC or Fol: No Subjective Review of Systems: RESPIRATORY:Abnormal Other Systems: Patient seen and examined by myself today in follow-up, patient remained intubated on ventilator Objective vital signs Vital Sign Date Time Temp Pulse Resp B/P (MAP) Pulse Ox O2 Delivery O2 Flow Rate FiO2 11/27/24 15:15 99.5 63 19 109/65 (80) 92 211.1 111/53 (72) 11/27/24 14:27 Mechanical Ventilator+ 30 30 Total Intake and Output 11/26/24 11/26/24 11/27/24 15:00 23:00 07:00 Intake Total 727.066 ml 1639.252 ml 752.063 ml Output Total 250 ml 700 ml Balance 727.066 ml 1389.252 ml 52.063 ml medications Current Medications Medications Dose Ordered Sig/Dona Route Start Time Stop Time Status Last Admin Dose Admin Ondansetron HCl 4 mg Q4HP PRN IV 11/19/24 08:45 Docusate Sodium 100 mg BIDPRN PRN PO 11/19/24 08:45 Acetaminophen 650 mg Q6HP PRN PO 11/19/24 08:45 11/25/24 16:11 650 MG Nitroglycerin 0.4 mg Q5MINP PRN SL 11/19/24 08:45 Midazolam HCl 50 ml @ 1 mls/hr Q24H IV 11/19/24 09:15 11/27/24 15:02 8 MLS/HR Piperacillin Sod/ Tazobactam Sod 100 ml @ 25 mls/hr Q8HR IV 11/19/24 22:00 11/27/24 12:32 25 MLS/HR Pantoprazole Sodium 40 mg DAILY IV 11/20/24 10:00 11/27/24 07:24 40 MG Fentanyl Citrate 250 ml @ 2.5 mls/hr Q24H IV 11/20/24 01:30 11/27/24 12:33 15 MLS/HR Norepinephrine Bitartrate 32 mg/ Sodium Chloride 250 ml @ 0.938 mls/ hr Q24H IV 11/20/24 12:00 11/23/24 05:17 5.625 MLS/HR Enteral Nutritional Formula 1,000 ml 50ML/HR GT 11/25/24 09:45 Purified Water 200 ml Q6HR GT 11/25/24 12:00 11/27/24 10:57 200 ML Sodium Chloride 10 ml QSHIFT@10,22 IV 11/25/24 22:00 11/27/24 07:24 10 ML Enoxaparin Sodium 80 mg Q12HR SC 11/27/24 10:00 11/27/24 10:57 80 MG Dextrose 1,000 ml @ 100 mls/hr Q10H IV 11/27/24 14:45 11/27/24 15:19 100 MLS/HR Examination: LUNGS:Normal, CVS:Normal, MSK:Normal laboratory and microbiology Laboratory Tests 11/27/24 02:45 Test 11/27/24 02:45 Range/Units Serum Glucose 83 74-106 mg/dL Microbiology Date/Time Source Procedure Growth Status 11/23/24 09:12 Blood Blood Culture - Preliminary NO GROWTH AFTER 72 HOURS OF INCUBATION. Resulted 11/20/24 04:00 Nose MRSA Screen - Final Complete 11/19/24 09:42 Sputum Expectorated Sputum Gram Stain - Final Complete 11/19/24 09:42 Respiratory Culture - Final Streptococcus Group B Complete Problem List/Assessment/Plan Problem List/Assessment/Plan Acute kidney injury superimposed Chronic Kidney Disease secondary hemodynamic mediated, FeNa < 1% Acute respiratory failure, patient intubated on ventilator Congestive heart failure exacerbation Pneumonia Bacteremia Hypokalemia Methamphetamine abuse NSTEMI Liver cirrhosis Jaundice Septic shock Mild proteinuria due to underlying chronic kidney disease Hypernatremia due to excessive water loss Recommendations Kidney function continues to improve Increased urine output Hyperkalemia resolved Mayo catheter Strict I&Os DC Bumex IVF D5W 100 cc/hour KCL replacement kidney ultrasound kidney ultrasound reported bilateral echogenic kidney IV pressors for blood pressure support Octreotide IV antibiotics Cardiology consult We will continue to follow Plan discussed with: Other (Nurse) My Orders My Orders Orders - TERESA DODD MD Procedure Category Date Status Time D5w 5% (Dextrose 5%) PHA 11/27/24 In Process 14:45 Dietary Evaluation Review Comments: Nutrition Recommendation: 1) TF Jevity 1.2Cal @ 70ml/hr x 24hr (goal rate) along with Pro-stat 1 pk daily. Start @ 20ml/hr, increase 10ml/hr Q4H until goal is reached. TF @ goal volume along with Pro-stat & Propofol provide 2116 kcal (100% energy needs), 108 gm protein (100% protein needs), 1356 ml free water. 2) Water flush 190 ml Q6H if allowed, adjust PRN 3) TPN if NPO >7 days 4) Monitor NPO status, lab values, wt trend, I/O Expected Outcomes/Goals: To meet >75% estimated needs Lab values to improve Fu 2-3 days TERESA DODD MD Nov 27, 2024 16:13
[2024-11-27] MEDS: DEXMEDETOMIDINE HCL IN D5W 100 ML IV SCH (22:00)
[2024-11-28] VITALS (115 sets, daily range): BP systolic 85–149; BP diastolic 43–90; PULSE 51–74; RESP 7–26; TEMP 98.2–100.8; O2SAT 90–100
[2024-11-28] MEDS: Jevity 1.2 Cal/Fiber 1 Liter GT SCH (01:18)
[2024-11-28 04:24] LABS: Hematocrit 43.5 % (41.0-53.0); Hemoglobin 14.8 g/dL (13.5-17.5); Mean Corpuscular Hemoglobin 31.3 pg (28.0-32.0); Mean Corpuscular Volume 92.1 fL (80.0-100.0); Nucleated Red Blood Cells % 0.0 %
[2024-11-28 04:39] LABS: Anion Gap 7 (5-15); Carbon Dioxide 29 mmol/L (20-31)
[2024-11-28 04:45] LABS: BUN/Creatinine Ratio 13.8 (10.0-20.0); Blood Urea Nitrogen 13 mg/dL (9-23)
[2024-11-28 04:46] LABS: Magnesium 2.1 mg/dL (1.6-2.6)
[2024-11-28 04:51] LABS: Calcium 8.6 mg/dL (8.7-10.4); Chloride 110 mmol/L (98-107); Glucose 130 mg/dL (74-106); Potassium 3.2 mmol/L (3.5-5.1); Sodium 146 mmol/L (136-145)
--- NOTE | 2024-11-28 05:49 | DVH ---
CHEST RADIOGRAPH Indication: chf Technique: Single frontal view of the chest was obtained COMPARISON: XY CHEST PORTABLE on DOS: 11/27/24, XY CHEST PORTABLE on DOS: 11/26/24, XY CHEST PORTABLE o n DOS: 11/26/24, XY CHEST PORTABLE on DOS: 11/25/24, CT CT ANGIO CHEST CONTRAST on DOS: 11/24/24 FINDINGS: Lines and Tubes: Endotracheal tube is slightly high in position. Right PICC and enteric catheter in satisfactory position Lungs: Pulmonary vascular congestion Pleura: No effusion. No pneumothorax. Cardiomediastinal contours: Cardiomegaly Bones: Unremarkable IMPRESSION: Recommend advancement of endotracheal tube by 1 cm.
[2024-11-28] MEDS: POTASSIUM CHL 20MEQ/100ML 100 ML IV SCH (07:04)
[2024-11-28 07:30] LABS: Base Excess 1.2 mmol/L (-2.0-3.0)
--- NOTE | 2024-11-28 09:30 | DVHPN2 ---
Subjective Patient intubated and sedated. Reviewed: Care Plan, H&P, Labs, Medications Changes from previous H/P or p: No Changes General: Per HPI Objective Vitals Vital Signs Date Time Temp Pulse Resp B/P (MAP) Pulse Ox O2 Delivery O2 Flow Rate FiO2 11/28/24 09:00 99.3 61 19 116/80 (92) 99 210.7 118/69 (85) 11/28/24 08:25 30 11/28/24 08:00 Mechanical Ventilator+ Intake/Output Intake and Output 11/28/24 07:00 Intake Total 3706.378 ml Output Total 1000 ml Balance 2706.378 ml Intake Oral 960 ml IV Total 2483.378 ml Tube Feeding 263 ml Output Urine Total 1000 ml General Appearance: moderate distress, Other (Chemically sedated) HEENT: PERRLA Lungs: Normal air movement, Other (Mechanical Ventilation) Cardiovascular: Normal S1, Normal S2, Other (Sinus bradycardia) Abdomen: Normal bowel sounds, Soft, No tenderness Genitourinary: No Apparent Abnormalities (Mayo catheter) Skin: Dry, Intact Psych/Mental Status: Other (Unable to assess) Medications Current Medications Medications Dose Ordered Sig/Dona Route Start Time Stop Time Status Last Admin Dose Admin Ondansetron HCl 4 mg Q4HP PRN IV 11/19/24 08:45 Docusate Sodium 100 mg BIDPRN PRN PO 11/19/24 08:45 Acetaminophen 650 mg Q6HP PRN PO 11/19/24 08:45 11/28/24 05:35 650 MG Nitroglycerin 0.4 mg Q5MINP PRN SL 11/19/24 08:45 Midazolam HCl 50 ml @ 1 mls/hr Q24H IV 11/19/24 09:15 11/28/24 02:52 5 MLS/HR Piperacillin Sod/ Tazobactam Sod 100 ml @ 25 mls/hr Q8HR IV 11/19/24 22:00 11/28/24 05:36 25 MLS/HR Pantoprazole Sodium 40 mg DAILY IV 11/20/24 10:00 11/28/24 07:47 40 MG Fentanyl Citrate 250 ml @ 2.5 mls/hr Q24H IV 11/20/24 01:30 11/28/24 05:41 10 MLS/HR Norepinephrine Bitartrate 32 mg/ Sodium Chloride 250 ml @ 0.938 mls/ hr Q24H IV 11/20/24 12:00 11/23/24 05:17 5.625 MLS/HR Enteral Nutritional Formula 1,000 ml 50ML/HR GT 11/25/24 09:45 11/28/24 01:18 1,000 ML Purified Water 200 ml Q6HR GT 11/25/24 12:00 11/28/24 05:36 200 ML Sodium Chloride 10 ml QSHIFT@10 IV 11/25/24 22:00 11/28/24 07:47 10 ML Enoxaparin Sodium 80 mg Q12HR SC 11/27/24 10:00 11/28/24 07:48 80 MG Dextrose 1,000 ml @ 100 mls/hr Q10H IV 11/27/24 14:45 11/27/24 23:44 100 MLS/HR Potassium Chloride 100 ml @ 50 mls/hr Q2H IV 11/28/24 07:00 11/28/24 10:59 11/28/24 07:48 50 MLS/HR Laboratory Results Laboratory Tests 11/28/24 03:41 Chemistry Test 11/28/24 03:41 Calcium Level 8.6 mg/dL (8.7-10.4) L Magnesium Level 2.1 mg/dL (1.6-2.6) Urinalysis Test 11/19/24 08:35 Urine Color Yellow (Yellow) Urine Clarity Clear (Clear) Urine pH 5.5 (5.0-9.0) Urine Specific [place] 1.017 (1.001-1.035) Urine Protein 1+ (Negative) H Urine Ketones Negative (Negative) Urine Blood 2+ /uL (Negative) H Urine Nitrite Negative (Negative) Urine Bilirubin Negative (Negative) Urine Urobilinogen Normal mg/dL (Negative) Urine Leukocyte Esterase Negative /uL (Negative) Urine RBC 33 /hpf (0 - 3) Urine Microscopic WBC 6 /HPF (0-3) H Urine Squamous Epithelial Cells Few /hpf (<5) Urine Bacteria None seen /hpf (None Seen) Urine Osmolality 518 mOsm/kg Urine Creatinine 104.97 mg/dL (30.0-125.0) Urine Protein/Creatinine Ratio 1.03 Urine Sodium 21 mmol/L (40-220) L Urine Glucose Normal mg/dL (Normal) Urine Total Protein 108.6 mg/dL (1-14) H Blood Gas Results Test 11/28/24 07:10 Arterial Blood pH 7.341 (7.350-7.450) FiO2 % 30.0 Microbiology Microbiology Date/Time Source Procedure Growth Status 11/23/24 09:12 Blood Blood Culture - Preliminary NO GROWTH AFTER 72 HOURS OF INCUBATION. Resulted 11/20/24 04:00 Nose MRSA Screen - Final Complete 11/19/24 09:42 Sputum Expectorated Sputum Gram Stain - Final Complete 11/19/24 09:42 Respiratory Culture - Final Streptococcus Group B Complete Labs and/or images reviewed: Labs reviewed by me, Image(s) reviewed by me Assessment/Plan Assessment/Plan Impression: -S/P cardiopulmonary arrest -Acute Hypoxic Respiratory Failure -Acute Decompensated Heart Failure -Hyperkalemia -Acute Kidney Injury/ VMN -Cardiogenic shock -Hx of Amphetamine use -NSTEMI type II -aspiration pneumonia Plan: Events: No events overnight. Na better. -continue full-dose anticoagulation -Continue D5w, free water -continue Zosyn -cardiology consultation: Recommendations reviewed -Nephrology consult: Recommendations reviewed -PUD/DVT prophylaxis -K and Mg replete -Continue vent settings -Repeat labs, abg, and cxr in am. -Discussed plan of care with sister Yolette. All questions answered Critical care time spent with patient discussing and formulating plan of care: 90 minutes. This does not include time spent performing procedures. This medical document was created using an electronic medical record system with [employer] dictation system. Although this document has been carefully reviewed, there may still be some phonetic and typographical errors. These areas are purely typographical due to imperfections of the software programs, and do not reflect any compromise in the patient's medical care. Plan discussed with: Patient, Other (Rn) My Orders Orders - AURELIO ZAMARRIPA NP Procedure Category Date Status Time Dexmedetomidine Hcl PHA 11/27/24 In Process In D5w (Precedex) 22:00 Potassium LAB 11/28/24 Logged 14:00 Magnesium LAB 11/28/24 Logged 14:00 Date of Service: Nov 28, 2024 Billing Provider: AURELIO ZAMARRIPA NP Common Visit Codes: [id number] CARE 30-74 MIN, [id number] CARE-EACH +30MIN AURELIO ZAMARRIPA NP Nov 28, 2024 09:30
--- NOTE | 2024-11-28 15:53 | DVHPN2 ---
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 Patient is off of sedations, not waking up at this time, he remains chemically ventilated Objective vital signs Vital Sign Date Time Temp Pulse Resp B/P (MAP) Pulse Ox O2 Delivery O2 Flow Rate FiO2 11/28/24 15:38 30 11/28/24 15:37 18 96 Mechanical Ventilator+ 11/28/24 15:30 60 117/71 (86) 11/28/24 15:30 99.0 210.2 Total Intake and Output 11/27/24 11/27/24 11/28/24 14:59 22:59 06:59 Intake Total 413.441 ml 1412.500 ml 1772.500 ml Output Total 500 ml 500 ml Balance 413.441 ml 912.500 ml 1272.500 ml medications Current Medications Medications Dose Ordered Sig/Dona Route Start Time Stop Time Status Last Admin Dose Admin Ondansetron HCl 4 mg Q4HP PRN IV 11/19/24 08:45 Docusate Sodium 100 mg BIDPRN PRN PO 11/19/24 08:45 Acetaminophen 650 mg Q6HP PRN PO 11/19/24 08:45 11/28/24 14:14 650 MG Nitroglycerin 0.4 mg Q5MINP PRN SL 11/19/24 08:45 Midazolam HCl 50 ml @ 1 mls/hr Q24H IV 11/19/24 09:15 11/28/24 02:52 5 MLS/HR Piperacillin Sod/ Tazobactam Sod 100 ml @ 25 mls/hr Q8HR IV 11/19/24 22:00 11/28/24 12:16 25 MLS/HR Pantoprazole Sodium 40 mg DAILY IV 11/20/24 10:00 11/28/24 07:47 40 MG Fentanyl Citrate 250 ml @ 2.5 mls/hr Q24H IV 11/20/24 01:30 11/28/24 05:41 10 MLS/HR Norepinephrine Bitartrate 32 mg/ Sodium Chloride 250 ml @ 0.938 mls/ hr Q24H IV 11/20/24 12:00 11/23/24 05:17 5.625 MLS/HR Enteral Nutritional Formula 1,000 ml 50ML/HR GT 11/25/24 09:45 11/28/24 01:18 1,000 ML Purified Water 200 ml Q6HR GT 11/25/24 12:00 11/28/24 11:54 200 ML Sodium Chloride 10 ml QSHIFT@10,22 IV 11/25/24 22:00 11/28/24 07:47 10 ML Enoxaparin Sodium 80 mg Q12HR SC 11/27/24 10:00 11/28/24 07:48 80 MG Dextrose 1,000 ml @ 100 mls/hr Q10H IV 11/27/24 14:45 11/28/24 09:38 100 MLS/HR Examination: GENERAL:Abnormal, LUNGS:Abnormal (Mechanical ventilation), CVS:Normal, NEURO:Abnormal (Off sedations, not waking up) laboratory and microbiology Laboratory Tests 11/28/24 12:57 11/28/24 03:41 Test 11/28/24 03:41 Range/Units Serum Glucose 130 H 74-106 mg/dL Problem List/Assessment/Plan Problem List/Assessment/Plan Cardiopulmonary arrest status post CPR with ROSC Mixed shock, cardiogenic versus septic De Ginger, decompensated HFrEF, NYHA class IV NSTEMI, with severe coronary artery disease Moderate tricuspid valve regurgitation Acute hypoxic respiratory failure Acute kidney injury Bacteremia Hyperkalemia, resolved Shock liver History of methamphetamine use Plan/Recommendations (Dr. Beatty): Transthoracic echocardiogram reveals an EF of 10-15% with severe global hypokinesis. Unable to initiate guideline directed medical therapy for CHF at this time given vasopressor therapy for hemodynamic support. The patient underwent a coronary angiogram with left heart catheterization on 11/26/2024 which revealed left anterior descending coronary artery stenosis as well as right coronary artery stenosis. The patient is an extremely high risk for coronary intervention. No intervention was done at time of angiography. Spoke with patient's sister, Yolette regarding results of coronary angiogram. Explained in full detail about the high risk for coronary intervention. She reports that the patient was on hospice care prior to admission, but states that it was for the "extra help" and not necessarily for end of life care. Patient's sister Yolette states that she did not know that the patient had congestive heart failure with a low ejection fraction, and claims that the patient himself was not very well aware of his overall health. At this time, Yolette would like time to consider any further coronary intervention. We are also pending CPAP trial. Sedations have been turned off and the patient is not responding to verbal or tactile stimuli at time of assessment. Further recommendations per clinical course and progression. Thank you for allowing us to care for this patient. Please call with any questions or concerns. Critical care time spent: 38 minutes. This medical document was created using an electronic medical record system with voice recognition software and computerized dictation system. Although this document has been carefully reviewed, there might still be some phonetic and typographical errors. Occasional wrong-word or ``sound-alike substitutions may have occurred due to the inherent limitations of voice recognition software. These areas are purely typographical due to imperfections of the software programs and do not reflect any compromise in the patient's medical care. Please read the chart carefully and recognize, using context, where these substitutions have occurred. Plan discussed with: Other (Bedside RN) Dietary Evaluation Review Comments: Nutrition Recommendation: 1) TF Jevity 1.2Cal @ 70ml/hr x 24hr (goal rate) along with Pro-stat 1 pk daily. Start @ 20ml/hr, increase 10ml/hr Q4H until goal is reached. TF @ goal volume along with Pro-stat & Propofol provide 2116 kcal (100% energy needs), 108 gm protein (100% protein needs), 1356 ml free water. 2) Water flush 190 ml Q6H if allowed, adjust PRN 3) TPN if NPO >7 days 4) Monitor NPO status, lab values, wt trend, I/O Expected Outcomes/Goals: To meet >75% estimated needs Lab values to improve Fu 2-3 days Date of Service: Nov 28, 2024 Billing Provider: HEMA SCHWARZ Common Visit Codes: [id number] CARE 30-74 MIN HEMA SCHWARZ Nov 28, 2024 15:53
[2024-11-28] MEDS: D5W 5% 1,000 ML IV SCH (19:52)
--- NOTE | 2024-11-28 23:07 | DVHPN2 ---
Consult Progress Note Subjective Other Systems: Patient was seen and evaluated in follow up in the ICU. 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 30% FiO2. NA 146, K 3.2. Objective vital signs Vital Sign Date Time Temp Pulse Resp B/P (MAP) Pulse Ox O2 Delivery O2 Flow Rate FiO2 11/28/24 17:00 98.6 61 18 102/67 (79) 100 209.5 11/28/24 15:38 30 11/28/24 15:37 Mechanical Ventilator+ Total Intake and Output 11/27/24 11/27/24 11/28/24 15:00 23:00 07:00 Intake Total 408.878 ml 1533.000 ml 1764.500 ml Output Total 500 ml 500 ml Balance 408.878 ml 1033.000 ml 1264.500 ml medications Current Medications Medications Dose Ordered Sig/Dona Route Start Time Stop Time Status Last Admin Dose Admin Ondansetron HCl 4 mg Q4HP PRN IV 11/19/24 08:45 Docusate Sodium 100 mg BIDPRN PRN PO 11/19/24 08:45 Acetaminophen 650 mg Q6HP PRN PO 11/19/24 08:45 11/28/24 14:14 650 MG Nitroglycerin 0.4 mg Q5MINP PRN SL 11/19/24 08:45 Midazolam HCl 50 ml @ 1 mls/hr Q24H IV 11/19/24 09:15 11/28/24 02:52 5 MLS/HR Piperacillin Sod/ Tazobactam Sod 100 ml @ 25 mls/hr Q8HR IV 11/19/24 22:00 11/28/24 12:16 25 MLS/HR Pantoprazole Sodium 40 mg DAILY IV 11/20/24 10:00 11/28/24 07:47 40 MG Fentanyl Citrate 250 ml @ 2.5 mls/hr Q24H IV 11/20/24 01:30 11/28/24 05:41 10 MLS/HR Norepinephrine Bitartrate 32 mg/ Sodium Chloride 250 ml @ 0.938 mls/ hr Q24H IV 11/20/24 12:00 11/23/24 05:17 5.625 MLS/HR Enteral Nutritional Formula 1,000 ml 50ML/HR GT 11/25/24 09:45 11/28/24 01:18 1,000 ML Purified Water 200 ml Q6HR GT 11/25/24 12:00 11/28/24 16:34 200 ML Sodium Chloride 10 ml QSHIFT@10,22 IV 11/25/24 22:00 11/28/24 07:47 10 ML Enoxaparin Sodium 80 mg Q12HR SC 11/27/24 10:00 11/28/24 07:48 80 MG Dextrose 1,000 ml @ 100 mls/hr Q10H IV 11/27/24 14:45 11/28/24 09:38 100 MLS/HR Examination: GENERAL:Abnormal, HEENT:Normal, LUNGS:Abnormal (Mechanical ventilation), CVS:Normal, ABDOMEN:Normal, SKIN:Normal, NEURO:Abnormal (Off sedations, not waking up) laboratory and microbiology Laboratory Tests 11/28/24 12:57 11/28/24 03:41 Test 11/28/24 03:41 Range/Units Serum Glucose 130 H 74-106 mg/dL Problem List/Assessment/Plan Problem List/Assessment/Plan Problem List Cardiopulmonary arrest status post CPR with ROSC. Mixed shock, cardiogenic versus septic. De Ginger, decompensated HFrEF, NYHA class IV. NSTEMI, with severe coronary artery disease. Moderate tricuspid valve regurgitation. Acute hypoxic respiratory failure. Acute kidney injury. Bacteremia. Hyperkalemia, resolved. Shock liver. History of methamphetamine use. Plan/Recommendations Continued all current supportive medical care. Patient has been seen by Cici White NP on my behalf, her and I discussed the plan with the patient. Transthoracic echocardiogram reveals an EF of 10-15% with severe global hypokinesis. Unable to initiate guideline directed medical therapy for CHF at this time given vasopressor therapy for hemodynamic support. The patient underwent a coronary angiogram with left heart catheterization on 11/26/2024 which revealed left anterior descending coronary artery stenosis as well as right coronary artery stenosis. The patient is an extremely high risk for coronary intervention. No intervention was done at time of angiography. Spoke with patient's sister, Yolette regarding results of coronary angiogram. Explained in full detail about the high risk for coronary intervention. She reports that the patient was on hospice care prior to admission, but states that it was for the "extra help" and not necessarily for end of life care. Patient's sister Yolette states that she did not know that the patient had congestive heart failure with a low ejection fraction, and claims that the patient himself was not very well aware of his overall health. At this time, Yolette would like time to consider any further coronary intervention. We are also pending CPAP trial. Sedations have been turned off and the patient is not responding to verbal or tactile stimuli at time of assessment. Additional plan as per the hospital course. Plan discussed with: Other Dietary Evaluation Review Comments: Nutrition Recommendation: 1) TF Jevity 1.2Cal @ 70ml/hr x 24hr (goal rate) along with Pro-stat 1 pk daily. Start @ 20ml/hr, increase 10ml/hr Q4H until goal is reached. TF @ goal volume along with Pro-stat & Propofol provide 2116 kcal (100% energy needs), 108 gm protein (100% protein needs), 1356 ml free water. 2) Water flush 190 ml Q6H if allowed, adjust PRN 3) TPN if NPO >7 days 4) Monitor NPO status, lab values, wt trend, I/O Expected Outcomes/Goals: To meet >75% estimated needs Lab values to improve Fu 2-3 days Date of Service: Nov 28, 2024 Billing Provider: SULAIMAN MALLOY MD Cardiology Common Codes: [id number] CARE 30-74 MIN SULAIMAN MALLOY MD Nov 28, 2024 17:39
[2024-11-29] VITALS (112 sets, daily range): BP systolic 83–238; BP diastolic 49–234; PULSE 47–113; RESP 12–29; TEMP 64.9–99.8; O2SAT 82–100
[2024-11-29 04:42] LABS: Hematocrit 43.7 % (41.0-53.0); Hemoglobin 14.9 g/dL (13.5-17.5); Mean Corpuscular Hemoglobin 31.2 pg (28.0-32.0); Mean Corpuscular Volume 91.3 fL (80.0-100.0); Nucleated Red Blood Cells % 0.0 %
[2024-11-29 04:44] LABS: Anion Gap 7 (5-15); Carbon Dioxide 29 mmol/L (20-31)
[2024-11-29 04:48] LABS: Calcium 8.5 mg/dL (8.7-10.4); Chloride 109 mmol/L (98-107); Potassium 3.4 mmol/L (3.5-5.1); Sodium 145 mmol/L (136-145)
[2024-11-29 04:50] LABS: BUN/Creatinine Ratio 12.0 (10.0-20.0); Magnesium 1.9 mg/dL (1.6-2.6)
[2024-11-29 04:58] LABS: Blood Urea Nitrogen 9 mg/dL (9-23); Glucose 118 mg/dL (74-106)
--- NOTE | 2024-11-29 06:44 | DVH ---
CHEST RADIOGRAPH Indication: On Ventilator Technique: Single frontal view of the chest was obtained COMPARISON: XY CHEST PORTABLE on DOS: 11/28/24, XY CHEST PORTABLE on DOS: 11/27/24, XY CHEST PORTABLE o n DOS: 11/26/24, XY CHEST PORTABLE on DOS: 11/26/24, XY CHEST PORTABLE on DOS: 11/25/24 FINDINGS: Lines and Tubes: Endotracheal tube, enteric catheter, and right PICC are in satisfactory position. Lungs: Unchanged pulmonary vascular congestion. Pleura: No effusion. No pneumothorax. Cardiomediastinal contours: Unchanged cardiomegaly. Bones: Unremarkable IMPRESSION: Unchanged pulmonary vascular congestion.
[2024-11-29 06:50] LABS: Base Excess 2.8 mmol/L (-2.0-3.0)
--- NOTE | 2024-11-29 08:08 | DVHPN2 ---
Subjective Patient intubated and following some commands. Reviewed: Care Plan, H&P, Labs, Medications Changes from previous H/P or p: No Changes General: Per HPI Objective Vitals Vital Signs Date Time Temp Pulse Resp B/P (MAP) Pulse Ox O2 Delivery O2 Flow Rate FiO2 11/29/24 07:45 30 11/29/24 07:30 99.0 58 18 115/73 (87) 99 210.2 118/58 (78) 11/29/24 06:00 Mechanical Ventilator+ Intake/Output Intake and Output 11/29/24 07:00 Intake Total 3645.164 ml Output Total 2250 ml Balance 1395.164 ml Intake Oral 500 ml IV Total 2388.164 ml Tube Feeding 757 ml Output Urine Total 2250 ml General Appearance: Alert, moderate distress, Other (Chemically sedated) HEENT: Atraumatic, PERRLA Lungs: Normal air movement, Other (Mechanical ventilation. Bilateral rhonchi) Cardiovascular: Normal S1, Normal S2, Other (Sinus bradycardia) Abdomen: Normal bowel sounds, Soft, No tenderness Genitourinary: No Apparent Abnormalities (Mayo catheter) Neuro: Cranial nerves 3-12 NL Skin: Dry, Intact Psych/Mental Status: Other (Unable to assess) Medications Current Medications Medications Dose Ordered Sig/Dona Route Start Time Stop Time Status Last Admin Dose Admin Ondansetron HCl 4 mg Q4HP PRN IV 11/19/24 08:45 Docusate Sodium 100 mg BIDPRN PRN PO 11/19/24 08:45 Acetaminophen 650 mg Q6HP PRN PO 11/19/24 08:45 11/28/24 14:14 650 MG Nitroglycerin 0.4 mg Q5MINP PRN SL 11/19/24 08:45 Piperacillin Sod/ Tazobactam Sod 100 ml @ 25 mls/hr Q8HR IV 11/19/24 22:00 11/29/24 06:20 25 MLS/HR Pantoprazole Sodium 40 mg DAILY IV 11/20/24 10:00 11/29/24 07:50 40 MG Fentanyl Citrate 250 ml @ 2.5 mls/hr Q24H IV 11/20/24 01:30 11/28/24 05:41 10 MLS/HR Norepinephrine Bitartrate 32 mg/ Sodium Chloride 250 ml @ 0.938 mls/ hr Q24H IV 11/20/24 12:00 11/28/24 21:02 1.875 MLS/HR Enteral Nutritional Formula 1,000 ml 50ML/HR GT 11/25/24 09:45 11/28/24 22:18 1,000 ML Purified Water 200 ml Q6HR GT 11/25/24 12:00 11/29/24 06:21 200 ML Sodium Chloride 10 ml QSHIFT@10,22 IV 11/25/24 22:00 11/29/24 07:50 10 ML Enoxaparin Sodium 80 mg Q12HR SC 11/27/24 10:00 11/29/24 07:51 80 MG Potassium Chloride 100 ml @ 50 mls/hr Q2H IV 11/29/24 08:00 11/29/24 11:59 UNV Laboratory Results Laboratory Tests 11/29/24 04:20 Chemistry Test 11/28/24 12:57 11/29/24 04:20 Magnesium Level 1.9 mg/dL (1.6-2.6) 1.9 mg/dL (1.6-2.6) Calcium Level 8.5 mg/dL (8.7-10.4) L Urinalysis Test 11/19/24 08:35 Urine Color Yellow (Yellow) Urine Clarity Clear (Clear) Urine pH 5.5 (5.0-9.0) Urine Specific Lawn 1.017 (1.001-1.035) Urine Protein 1+ (Negative) H Urine Ketones Negative (Negative) Urine Blood 2+ /uL (Negative) H Urine Nitrite Negative (Negative) Urine Bilirubin Negative (Negative) Urine Urobilinogen Normal mg/dL (Negative) Urine Leukocyte Esterase Negative /uL (Negative) Urine RBC 33 /hpf (0 - 3) Urine Microscopic WBC 6 /HPF (0-3) H Urine Squamous Epithelial Cells Few /hpf (<5) Urine Bacteria None seen /hpf (None Seen) Urine Osmolality 518 mOsm/kg Urine Creatinine 104.97 mg/dL (30.0-125.0) Urine Protein/Creatinine Ratio 1.03 Urine Sodium 21 mmol/L (40-220) L Urine Glucose Normal mg/dL (Normal) Urine Total Protein 108.6 mg/dL (1-14) H Blood Gas Results Test 11/29/24 06:37 Arterial Blood pH 7.368 (7.350-7.450) FiO2 % 30.0 Microbiology Microbiology Date/Time Source Procedure Growth Status 11/23/24 09:12 Blood Blood Culture - Final NO GROWTH AFTER 5 DAYS OF INCUBATION. Complete 11/20/24 04:00 Nose MRSA Screen - Final Complete 11/19/24 09:42 Sputum Expectorated Sputum Gram Stain - Final Complete 11/19/24 09:42 Respiratory Culture - Final Streptococcus Group B Complete Labs and/or images reviewed: Labs reviewed by me, Image(s) reviewed by me Assessment/Plan Assessment/Plan Impression: -S/P cardiopulmonary arrest -Acute Hypoxic Respiratory Failure -Acute Decompensated Heart Failure -Hyperkalemia -Acute Kidney Injury/ VMN -Cardiogenic shock -Hx of Amphetamine use -NSTEMI type II -aspiration pneumonia Plan: Events: Patient awake and following some commands. Still seems somnolent. Patient has improvement with sodium level. Renal function within normal limits. Chest x-ray reveals pulmonary vascular congestion with persistent right upper lobe opacity. -spontaneous breathing trial. Patient has been placed on CPAP this a.m.. -potassium replacement -IV diuresis -stop D5W and free water -continue full-dose anticoagulation -continue Zosyn -cardiology consultation: Recommendations reviewed -Nephrology consult: Recommendations reviewed -PUD/DVT prophylaxis -K and Mg replete -Continue vent settings -Repeat labs, abg, and cxr in am. -Discussed plan of care with sister Yolette. All questions answered Critical care time spent with patient discussing and formulating plan of care: 90 minutes. This does not include time spent performing procedures. This medical document was created using an electronic medical record system with [employer] dictation system. Although this document has been carefully reviewed, there may still be some phonetic and typographical errors. These areas are purely typographical due to imperfections of the software programs, and do not reflect any compromise in the patient's medical care. Plan discussed with: Patient, Other (RN) My Orders Orders - AURELIO ZAMARRIPA STEWARD [employer] Procedure Category Date Status Time Cpap Trial For Am ORDERS 11/29/24 Transmitted 05:00 Cpap Trial For Am ORDERS 11/30/24 Transmitted 05:00 Cpap Trial For Am ORDERS 12/01/24 Transmitted 05:00 Chest Xray 1 View XY 11/29/24 Resulted 04:00 Abg W/ Co-Ox RT 11/29/24 Logged 06:00 Potassium Chl PHA 11/29/24 Logged 20meq/100ml 08:00 Basic Metabolic Panel LAB 11/30/24 Verified 05:00 Basic Metabolic Panel LAB 12/01/24 Verified 05:00 Basic Metabolic Panel LAB 12/02/24 Verified 05:00 Chest Portable XY 11/30/24 Logged 05:00 Chest Portable XY 12/01/24 Logged 05:00 Chest Portable XY 12/02/24 Logged 05:00 Complete Blood Count LAB 11/30/24 Verified 05:00 Complete Blood Count LAB 12/01/24 Verified 05:00 Complete Blood Count LAB 12/02/24 Verified 05:00 Furosemide Injection PHA 11/29/24 Verified (Lasix Injection) 08:15 Date of Service: Nov 29, 2024 Billing Provider: AURELIO ZAMARRIPA NP Common Visit Codes: [id number] CARE 30-74 MIN AURELIO ZAMARRIPA NP Nov 29, 2024 08:08
[2024-11-29] MEDS: FUROSEMIDE 40 MG/4 ML VIAL IV ONE (08:27)
[2024-11-29] MEDS: POTASSIUM CHL 20MEQ/100ML 100 ML IV SCH (08:28)
[2024-11-29 09:20] LABS: Base Excess 4.6 mmol/L (-2.0-3.0)
[2024-11-29] MEDS: LACTULOSE 20Gm/30ML SOLN PO SCH (11:51)
--- NOTE | 2024-11-29 16:06 | DVHPN2 ---
Progress Note Date Seen: Nov 29, 2024 Medical Necessity Reason Pt with a Central, PICC or Fol: No Subjective Patient reports: Other Review of Systems: Deferred Objective vital signs Vital Sign Date Time Temp Pulse Resp B/P (MAP) Pulse Ox O2 Delivery O2 Flow Rate FiO2 11/29/24 15:31 30 11/29/24 15:30 62 17 131/70 (90) 96 11/29/24 15:30 Mechanical Ventilator+ 11/29/24 14:00 99.5 99.5 Total Intake and Output 11/28/24 11/28/24 11/29/24 14:59 22:59 06:59 Intake Total 1104.315 ml 1579.049 ml 1022.300 ml Output Total 550 ml 1700 ml Balance 1104.315 ml 1029.049 ml -677.700 ml medications Current Medications Medications Dose Ordered Sig/Dona Route Start Time Stop Time Status Last Admin Dose Admin Ondansetron HCl 4 mg Q4HP PRN IV 11/19/24 08:45 Docusate Sodium 100 mg BIDPRN PRN PO 11/19/24 08:45 Acetaminophen 650 mg Q6HP PRN PO 11/19/24 08:45 11/28/24 14:14 650 MG Nitroglycerin 0.4 mg Q5MINP PRN SL 11/19/24 08:45 Piperacillin Sod/ Tazobactam Sod 100 ml @ 25 mls/hr Q8HR IV 11/19/24 22:00 11/29/24 13:21 25 MLS/HR Pantoprazole Sodium 40 mg DAILY IV 11/20/24 10:00 11/29/24 07:50 40 MG Fentanyl Citrate 250 ml @ 2.5 mls/hr Q24H IV 11/20/24 01:30 11/28/24 05:41 10 MLS/HR Norepinephrine Bitartrate 32 mg/ Sodium Chloride 250 ml @ 0.938 mls/ hr Q24H IV 11/20/24 12:00 11/28/24 21:02 1.875 MLS/HR Enteral Nutritional Formula 1,000 ml 50ML/HR GT 11/25/24 09:45 11/28/24 22:18 1,000 ML Sodium Chloride 10 ml QSHIFT@,22 IV 11/25/24 22:00 11/29/24 07:50 10 ML Enoxaparin Sodium 80 mg Q12HR SC 11/27/24 10:00 11/29/24 07:51 80 MG Lactulose 30 ml BID PO 11/29/24 10:00 11/29/24 11:51 30 ML Examination: GENERAL:Abnormal, LUNGS:Abnormal, NEURO:Abnormal laboratory and microbiology Laboratory Tests 11/29/24 04:20 Test 11/29/24 04:20 Range/Units Serum Glucose 118 H 74-106 mg/dL Microbiology Date/Time Source Procedure Growth Status 11/23/24 09:12 Blood Blood Culture - Final NO GROWTH AFTER 5 DAYS OF INCUBATION. Complete 11/20/24 04:00 Nose MRSA Screen - Final Complete 11/19/24 09:42 Sputum Expectorated Sputum Gram Stain - Final Complete 11/19/24 09:42 Respiratory Culture - Final Streptococcus Group B Complete Problem List/Assessment/Plan Problem List/Assessment/Plan Acute kidney injury superimposed Chronic Kidney Disease secondary hemodynamic mediated, FeNa < 1% Acute respiratory failure, patient intubated on ventilator Congestive heart failure exacerbation Pneumonia Bacteremia Hypokalemia Methamphetamine abuse NSTEMI Liver cirrhosis Jaundice Septic shock Mild proteinuria due to underlying chronic kidney disease Hypernatremia due to excessive water loss recs better renal function and lytes i will sign off this case /pls reconsult if needed Plan discussed with: Other Dietary Evaluation Review Comments: Nutrition Recommendation: 1) TF Jevity 1.2Cal @ 70ml/hr x 24hr (goal rate) along with Pro-stat 1 pk daily. Start @ 20ml/hr, increase 10ml/hr Q4H until goal is reached. TF @ goal volume along with Pro-stat & Propofol provide 2116 kcal (100% energy needs), 108 gm protein (100% protein needs), 1356 ml free water. 2) Water flush 190 ml Q6H if allowed, adjust PRN 3) TPN if NPO >7 days 4) Monitor NPO status, lab values, wt trend, I/O Expected Outcomes/Goals: To meet >75% estimated needs Lab values to improve Fu 2-3 days ESTEBAN GARCIA MD Nov 29, 2024 16:05
--- NOTE | 2024-11-29 20:25 | DVHPN2 ---
Progress Note - Dictate Date Seen: Nov 29, 2024 Medical Necessity Reason Pt with a Central, PICC or Fol: No Subjective Patient was seen and evaluated in follow-up in the ICU. Patient is intubated on ventilator.30% FiO2. CPAP trial was terminated due to the patient not being awake enough. Patient receiving vasopressors. WBC 10.9, K 3.4, CL 109, CA 8.5. Chest x-ray shows unchanged pulmonary vascular congestion. and cardiomegaly. vital signs Vital Sign Date Time Temp Pulse Resp B/P (MAP) Pulse Ox O2 Delivery O2 Flow Rate FiO2 11/29/24 18:30 99.0 60 19 97/63 (74) 95 210.2 102/57 (72) 11/29/24 18:26 30 11/29/24 17:32 Mechanical Ventilator+ Total Intake and Output 11/28/24 11/28/24 11/29/24 15:00 23:00 07:00 Intake Total 1167.878 ml 1461.546 ml 1015.740 ml Output Total 550 ml 1700 ml Balance 1167.878 ml 911.546 ml -684.260 ml medications Current Medications Medications Dose Ordered Sig/Dona Route Start Time Stop Time Status Last Admin Dose Admin Ondansetron HCl 4 mg Q4HP PRN IV 11/19/24 08:45 Docusate Sodium 100 mg BIDPRN PRN PO 11/19/24 08:45 Acetaminophen 650 mg Q6HP PRN PO 11/19/24 08:45 11/28/24 14:14 650 MG Nitroglycerin 0.4 mg Q5MINP PRN SL 11/19/24 08:45 Piperacillin Sod/ Tazobactam Sod 100 ml @ 25 mls/hr Q8HR IV 11/19/24 22:00 11/29/24 13:21 25 MLS/HR Pantoprazole Sodium 40 mg DAILY IV 11/20/24 10:00 11/29/24 07:50 40 MG Fentanyl Citrate 250 ml @ 2.5 mls/hr Q24H IV 11/20/24 01:30 11/28/24 05:41 10 MLS/HR Norepinephrine Bitartrate 32 mg/ Sodium Chloride 250 ml @ 0.938 mls/ hr Q24H IV 11/20/24 12:00 11/28/24 21:02 1.875 MLS/HR Enteral Nutritional Formula 1,000 ml 50ML/HR GT 11/25/24 09:45 11/28/24 22:18 1,000 ML Sodium Chloride 10 ml QSHIFT@10,22 IV 11/25/24 22:00 11/29/24 07:50 10 ML Enoxaparin Sodium 80 mg Q12HR SC 11/27/24 10:00 11/29/24 07:51 80 MG Lactulose 30 ml BID PO 11/29/24 10:00 11/29/24 11:51 30 ML objective GENERAL: Intubated on ventilator. EYES: PERRL, EOMI. Anicteric. HENT: Moist mucous membranes. LUNGS: Decreased breath sounds. CARDIOVASCULAR: Regular rate and rhythm. ABDOMEN: Soft, nontender and nondistended. EXTREMITIES: No edema. NEUROLOGIC: No focal neurological deficits. SKIN: Warm, dry. laboratory and microbiology Laboratory Tests 11/29/24 04:20 Test 11/29/24 04:20 Range/Units Serum Glucose 118 H 74-106 mg/dL Problem List Cardiopulmonary arrest status post CPR with ROSC. Mixed shock, cardiogenic versus septic. De Ginger, decompensated HFrEF, NYHA class IV. NSTEMI, with severe coronary artery disease. Moderate tricuspid valve regurgitation. Acute hypoxic respiratory failure. Acute kidney injury. Bacteremia. Hyperkalemia, resolved. Shock liver. History of methamphetamine use. Assessment/Plan Continued all current supportive medical care. DVT and GI prophylactics. IV antibiotics as ordered. Nitro SL. Vasopressors for hemodynamic support. Additional plan as per the hospital course. Critical care time of 45 minutes provided to include time spent evaluation of patient at bedside, when appropriate patient/family education for diagnosis, treatment plan, review of pertinent medical information and discussion of care with specialty providers and PCP. Mechanical ventilator parameters, treatment and adjustments have personally been reviewed by me and treatment plan by credit administration specialist has also been reviewed. Dietary Evaluation Review Comments: Nutrition Recommendation: 1) TF Jevity 1.2Cal @ 70ml/hr x 24hr (goal rate) along with Pro-stat 1 pk daily. Start @ 20ml/hr, increase 10ml/hr Q4H until goal is reached. TF @ goal volume along with Pro-stat & Propofol provide 2116 kcal (100% energy needs), 108 gm protein (100% protein needs), 1356 ml free water. 2) Water flush 190 ml Q6H if allowed, adjust PRN 3) TPN if NPO >7 days 4) Monitor NPO status, lab values, wt trend, I/O Expected Outcomes/Goals: To meet >75% estimated needs Lab values to improve Fu 2-3 days Plan discussed with: SULAIMAN Buckley MD Nov 29, 2024 19:06
--- NOTE | 2024-11-29 21:15 | DVHPN2 ---
[facility] DOS: 11/29/2024 Patient seen and examined at bedside. Sedated, intubated on mechanical ventilator. Overnight events reviewed. HPI: A 69-year-old man with PMHx of hypertension and methamphetamine abuse who came to the ER on 11/19/24 for evaluation of shortness of breath. Per ER documentation, patient presented with complaints of shortness of breath x 1 week. While in the ER he was given a breathing treatment and placed on oxygen. He continued to have shortness of breath, increased work of breathing, and anxiety. He was placed on BiPAP, not tolerating due to anxiety. He subsequently had a cardiac arrest while in the ER, achieved ROSC and patient was intubated and placed on mechanical ventilator. He was admitted for further care. Pulmonary consultation is requested for evaluation and management d/t acute hypoxic respiratory failure requiring mechanical ventilator Past Medical History: Hypertension, methamphetamine abuse (per ER records). Past Surgical History: Unable to obtain Medications: Reviewed. Allergies: No known drug allergies. Family History: No family history of premature CAD. No family history of lung disorders. Social History: Nonsmoker. No alcohol use. Hx of methamphetamine abuse. Reviewed: Care Plan, H&P, Labs, Medications Changes from previous H/P or p: No Changes General: Per HPI Objective Vitals Vital Signs Date Time Temp Pulse Resp B/P (MAP) Pulse Ox O2 Delivery O2 Flow Rate FiO2 11/29/24 20:15 99.0 65 17 114/71 (85) 93 210.2 129/67 (87) 11/29/24 20:02 30 11/29/24 20:00 Mechanical Ventilator+ Intake/Output Intake and Output 11/29/24 07:00 Intake Total 3645.164 ml Output Total 2250 ml Balance 1395.164 ml Intake Oral 500 ml IV Total 2388.164 ml Tube Feeding 757 ml Output Urine Total 2250 ml General Appearance: Alert, moderate distress, Other (Chemically sedated) HEENT: Atraumatic, PERRLA Lungs: Normal air movement, Other (Mechanical ventilation. Bilateral rhonchi) Cardiovascular: Normal S1, Normal S2, Other (Sinus bradycardia) Abdomen: Normal bowel sounds, Soft, No tenderness Genitourinary: No Apparent Abnormalities (Mayo catheter) Neuro: Cranial nerves 3-12 NL Skin: Dry, Intact Psych/Mental Status: Other (Unable to assess) Medications Current Medications Medications Dose Ordered Sig/Dona Route Start Time Stop Time Status Last Admin Dose Admin Ondansetron HCl 4 mg Q4HP PRN IV 11/19/24 08:45 Docusate Sodium 100 mg BIDPRN PRN PO 11/19/24 08:45 Acetaminophen 650 mg Q6HP PRN PO 11/19/24 08:45 11/28/24 14:14 650 MG Nitroglycerin 0.4 mg Q5MINP PRN SL 11/19/24 08:45 Piperacillin Sod/ Tazobactam Sod 100 ml @ 25 mls/hr Q8HR IV 11/19/24 22:00 11/29/24 13:21 25 MLS/HR Pantoprazole Sodium 40 mg DAILY IV 11/20/24 10:00 11/29/24 07:50 40 MG Fentanyl Citrate 250 ml @ 2.5 mls/hr Q24H IV 11/20/24 01:30 11/28/24 05:41 10 MLS/HR Norepinephrine Bitartrate 32 mg/ Sodium Chloride 250 ml @ 0.938 mls/ hr Q24H IV 11/20/24 12:00 11/28/24 21:02 1.875 MLS/HR Enteral Nutritional Formula 1,000 ml 50ML/HR GT 11/25/24 09:45 11/28/24 22:18 1,000 ML Sodium Chloride 10 ml QSHIFT@10,22 IV 11/25/24 22:00 11/29/24 07:50 10 ML Enoxaparin Sodium 80 mg Q12HR SC 11/27/24 10:00 11/29/24 07:51 80 MG Lactulose 30 ml BID PO 11/29/24 10:00 11/29/24 11:51 30 ML Laboratory Results Laboratory Tests 11/29/24 04:20 Chemistry Test 11/29/24 04:20 Calcium Level 8.5 mg/dL (8.7-10.4) L Magnesium Level 1.9 mg/dL (1.6-2.6) Urinalysis Test 11/19/24 08:35 Urine Color Yellow (Yellow) Urine Clarity Clear (Clear) Urine pH 5.5 (5.0-9.0) Urine Specific [place] 1.017 (1.001-1.035) Urine Protein 1+ (Negative) H Urine Ketones Negative (Negative) Urine Blood 2+ /uL (Negative) H Urine Nitrite Negative (Negative) Urine Bilirubin Negative (Negative) Urine Urobilinogen Normal mg/dL (Negative) Urine Leukocyte Esterase Negative /uL (Negative) Urine RBC 33 /hpf (0 - 3) Urine Microscopic WBC 6 /HPF (0-3) H Urine Squamous Epithelial Cells Few /hpf (<5) Urine Bacteria None seen /hpf (None Seen) Urine Osmolality 518 mOsm/kg Urine Creatinine 104.97 mg/dL (30.0-125.0) Urine Protein/Creatinine Ratio 1.03 Urine Sodium 21 mmol/L (40-220) L Urine Glucose Normal mg/dL (Normal) Urine Total Protein 108.6 mg/dL (1-14) H Blood Gas Results Test 11/29/24 06:37 11/29/24 09:00 Arterial Blood pH 7.368 (7.350-7.450) 7.334 (7.350-7.450) FiO2 % 30.0 30.0 Microbiology Microbiology Date/Time Source Procedure Growth Status 11/23/24 09:12 Blood Blood Culture - Final NO GROWTH AFTER 5 DAYS OF INCUBATION. Complete 11/20/24 04:00 Nose MRSA Screen - Final Complete 11/19/24 09:42 Sputum Expectorated Sputum Gram Stain - Final Complete 11/19/24 09:42 Respiratory Culture - Final Streptococcus Group B Complete Assessment/Plan Assessment/Plan Impression: Acute hypoxic respiratory failure Chronic hypercarbic respiratory failure, PaCO2 63 mmHg. On mechanical ventilator Hyperkalemia Acute decompensated Heart Failure Acute kidney Injury Methamphetamine use Marijuana use Aspiration Hepatitis C Plan: s/p intubation on mechanical ventilator CXR image and report reviewed. Devices in place. Pulmonary vascular congestion. No pleural effusion pneumothorax. ABG reviewed. Slight acidemia due to CO2 retention. On Vent: RR 18, Vt 470, Peep 7, Fio2 30% Titrate FIO2 to keep O2 saturation above 92%. VAP bundle Daily ABG and CXR while intubated. Patient on CPAP trial with pressure support of eight, peep of five. Patient remains somnolent. Following some commands. We will continue to monitor closely. Plan for extubation once patient is more awake or alert. Start pressors if necessary for hemodynamic support. On pressors for hemodynamic support. Titrate to keep MAP above 65 mmHg/SBP above 90 mmHg. Continue antibiotics. F/u cultures. Monitor renal function due to Acute kidney injury. Continue diuresis. Monitor electrolytes. Supplement as necessary. Hypokalemia, supplement Magnesium supplementation. Nutritional support. Accucheks, ISS. GI/DVT prophylaxis. Condition: Critical Prognosis: Poor given multiple comorbidities. Rest of plan per hospitalist and other consultants. A total of 35 minutes of critical care time was spent reviewing the patient record, examining the patient, making a diagnostic and therapeutic plan, discussing this plan with the medical personnel, following up on diagnostic studies and following the patient for clinical stability excluding any and all procedures. At least 50% of this time was spent in direct, [id number] contact. Thank you for allowing me to participate in this patient's care. Further recommendations will depend on patient's clinical course. Please do not hesitate to contact me if you have any questions or concerns. This medical document was created using an electronic medical record system with [employer] dictation system. Although this document has been carefully reviewed, there may still be some phonetic and typographical errors. These areas are purely typographical due to imperfections of the software programs, and do not reflect any compromise in the patient's medical care. Plan discussed with: Other (SELMA Leblanc) Date of Service: Nov 29, 2024 Billing Provider: JHONY GARIBAY MD Common Visit Codes: [id number] INP/OBS CARE(HIGH), [id number] CARE 30-74 MIN JHONY GARIBAY MD Nov 29, 2024 21:15
[2024-11-30] VITALS (99 sets, daily range): BP systolic 94–142; BP diastolic 54–99; PULSE 55–139; RESP 9–33; TEMP 89.8–99.5; O2SAT 89–100
[2024-11-30 03:02] LABS: Hematocrit 43.2 % (41.0-53.0); Hemoglobin 14.7 g/dL (13.5-17.5); Mean Corpuscular Hemoglobin 31.0 pg (28.0-32.0); Mean Corpuscular Volume 91.3 fL (80.0-100.0); Nucleated Red Blood Cells % 0.0 %
[2024-11-30 03:13] LABS: Anion Gap 7 (5-15); Calcium 8.7 mg/dL (8.7-10.4); Chloride 107 mmol/L (98-107)
[2024-11-30 03:19] LABS: Glucose 94 mg/dL (74-106)
[2024-11-30 03:20] LABS: BUN/Creatinine Ratio 11.0 (10.0-20.0)
[2024-11-30 03:34] LABS: Blood Urea Nitrogen 8 mg/dL (9-23); Carbon Dioxide 33 mmol/L (20-31); Potassium 3.3 mmol/L (3.5-5.1); Sodium 147 mmol/L (136-145)
--- NOTE | 2024-11-30 06:24 | DVH ---
CHEST RADIOGRAPH Indication: chf Technique: Single frontal view of the chest was obtained Comparison: XY CHEST XRAY 1 VIEW on DOS: 11/29/24, XY CHEST PORTABLE on DOS: 11/28/24, XY CHEST PORTABL E on DOS: 11/27/24 IMPRESSION: Heart appears stable in size. Support lines and tubes appear stable in satisfactory position. Lungs appear mildly improved in aeration with interstitial prominence. No sizable effusion or pneumothorax.
[2024-11-30] MEDS: BISACODYL 10 MG RECT SUPP PR ONE (07:30)
[2024-11-30 07:47] LABS: Base Excess 1.9 mmol/L (-2.0-3.0)
[2024-11-30] MEDS: POTASSIUM CHL 20MEQ/100ML 100 ML IV ONE ×2 (07:48→08:07)
--- NOTE | 2024-11-30 08:09 | DVHPN2 ---
Subjective Patient intubated and following some commands. Reviewed: Care Plan, H&P, Labs, Medications Changes from previous H/P or p: No Changes General: Per HPI Objective Vitals Vital Signs Date Time Temp Pulse Resp B/P (MAP) Pulse Ox O2 Delivery O2 Flow Rate FiO2 11/30/24 07:29 91 19 129/75 (93) 94 30 11/30/24 07:00 98.8 209.8 11/30/24 06:00 Mechanical Ventilator+ Intake/Output Intake and Output 11/30/24 07:00 Intake Total 1662.216 ml Output Total 3380 ml Balance -1717.784 ml Intake Oral 400 ml IV Total 900.216 ml Tube Feeding 362 ml Output Urine Total 3300 ml Other 80 ml General Appearance: Alert, Cooperative, moderate distress, Other (Chemically sedated) HEENT: Atraumatic, PERRLA Lungs: Normal air movement, Other (Mechanical ventilation. Bilateral rhonchi) Cardiovascular: Normal S1, Normal S2, Other (Sinus bradycardia) Abdomen: Normal bowel sounds, Soft, No tenderness Genitourinary: No Apparent Abnormalities (Mayo catheter) Neuro: Cranial nerves 3-12 NL Skin: Dry, Intact Psych/Mental Status: Other (Unable to assess) Medications Current Medications Medications Dose Ordered Sig/Dona Route Start Time Stop Time Status Last Admin Dose Admin Ondansetron HCl 4 mg Q4HP PRN IV 11/19/24 08:45 Docusate Sodium 100 mg BIDPRN PRN PO 11/19/24 08:45 Acetaminophen 650 mg Q6HP PRN PO 11/19/24 08:45 11/28/24 14:14 650 MG Nitroglycerin 0.4 mg Q5MINP PRN SL 11/19/24 08:45 Piperacillin Sod/ Tazobactam Sod 100 ml @ 25 mls/hr Q8HR IV 11/19/24 22:00 11/30/24 05:36 25 MLS/HR Pantoprazole Sodium 40 mg DAILY IV 11/20/24 10:00 11/30/24 07:41 40 MG Fentanyl Citrate 250 ml @ 2.5 mls/hr Q24H IV 11/20/24 01:30 11/30/24 05:42 12.5 MLS/HR Norepinephrine Bitartrate 32 mg/ Sodium Chloride 250 ml @ 0.938 mls/ hr Q24H IV 11/20/24 12:00 11/29/24 18:00 0.938 MLS/HR Enteral Nutritional Formula 1,000 ml 50ML/HR GT 11/25/24 09:45 11/28/24 22:18 1,000 ML Sodium Chloride 10 ml QSHIFT@10,22 IV 11/25/24 22:00 11/30/24 07:40 10 ML Enoxaparin Sodium 80 mg Q12HR SC 11/27/24 10:00 11/30/24 07:41 80 MG Lactulose 30 ml BID PO 11/29/24 10:00 11/30/24 07:41 30 ML Bisacodyl 10 mg DAILYP PRN NE 12/01/24 07:30 Laboratory Results Laboratory Tests 11/30/24 02:30 Chemistry Test 11/30/24 02:30 Calcium Level 8.7 mg/dL (8.7-10.4) Urinalysis Test 11/19/24 08:35 Urine Color Yellow (Yellow) Urine Clarity Clear (Clear) Urine pH 5.5 (5.0-9.0) Urine Specific [place] 1.017 (1.001-1.035) Urine Protein 1+ (Negative) H Urine Ketones Negative (Negative) Urine Blood 2+ /uL (Negative) H Urine Nitrite Negative (Negative) Urine Bilirubin Negative (Negative) Urine Urobilinogen Normal mg/dL (Negative) Urine Leukocyte Esterase Negative /uL (Negative) Urine RBC 33 /hpf (0 - 3) Urine Microscopic WBC 6 /HPF (0-3) H Urine Squamous Epithelial Cells Few /hpf (<5) Urine Bacteria None seen /hpf (None Seen) Urine Osmolality 518 mOsm/kg Urine Creatinine 104.97 mg/dL (30.0-125.0) Urine Protein/Creatinine Ratio 1.03 Urine Sodium 21 mmol/L (40-220) L Urine Glucose Normal mg/dL (Normal) Urine Total Protein 108.6 mg/dL (1-14) H Blood Gas Results Test 11/29/24 09:00 11/30/24 07:40 Arterial Blood pH 7.334 (7.350-7.450) 7.439 (7.350-7.450) FiO2 % 30.0 30.0 Microbiology Microbiology Date/Time Source Procedure Growth Status 11/23/24 09:12 Blood Blood Culture - Final NO GROWTH AFTER 5 DAYS OF INCUBATION. Complete 11/20/24 04:00 Nose MRSA Screen - Final Complete 11/19/24 09:42 Sputum Expectorated Sputum Gram Stain - Final Complete 11/19/24 09:42 Respiratory Culture - Final Streptococcus Group B Complete Labs and/or images reviewed: Labs reviewed by me, Image(s) reviewed by me Assessment/Plan Assessment/Plan Impression: -S/P cardiopulmonary arrest -Acute Hypoxic Respiratory Failure -Acute Decompensated Heart Failure -Hyperkalemia -Acute Kidney Injury/ VMN -Cardiogenic shock -Hx of Amphetamine use -NSTEMI type II -aspiration pneumonia Plan: Events: Patient more awake and following commands. Continue with spontaneous breathing trial. -spontaneous breathing trial. Patient has been placed on CPAP this a.m.. -potassium replacement -IV diuresis -continue full-dose anticoagulation -continue Zosyn -cardiology consultation: Recommendations reviewed -Nephrology consult: Recommendations reviewed -PUD/DVT prophylaxis -K and Mg replete -Continue vent settings: CPAP today -Repeat labs, abg, and cxr in am. -Discussed plan of care with sister Yolette. All questions answered Critical care time spent with patient discussing and formulating plan of care: 90 minutes. This does not include time spent performing procedures. This medical document was created using an electronic medical record system with [employer] dictation system. Although this document has been carefully reviewed, there may still be some phonetic and typographical errors. These areas are purely typographical due to imperfections of the software programs, and do not reflect any compromise in the patient's medical care. Plan discussed with: Patient, Other (RN, Sister) My Orders Orders - AURELIO ZAMARRIPA EMR TRAINER Procedure Category Date Status Time Lactulose Oral PHA 11/29/24 In Process 10:00 Abg W/ Co-Ox RT 11/29/24 Logged 08:45 Potassium Chl PHA 11/30/24 In Process 20meq/100ml 07:30 Cpap/Sed Vacation Med ORDERS 11/30/24 Transmitted Weaning 07:22 Cpap Trial For Am ORDERS 11/30/24 Transmitted 07:22 Magnesium Sulfate PHA 11/30/24 In Process 1gm/100ml 08:00 Basic Metabolic Panel LAB 12/01/24 Verified 04:00 Magnesium LAB 12/01/24 Verified 04:00 Chest Portable XY 12/01/24 Logged 04:00 Bisacodyl Suppository PHA 12/01/24 In Process (Dulcolax Supposit 07:30 Date of Service: Nov 30, 2024 Billing Provider: AURELIO ZAMARRIPA NP Common Visit Codes: [id number] CARE 30-74 MIN AURELIO ZAMARRIPA NP Nov 30, 2024 08:09
[2024-11-30] MEDS: MAGNESIUM SULFATE 1GM/100ML 100 ML IV ONE (08:10)
[2024-11-30] MEDS: FUROSEMIDE 20 MG/2 ML VIAL IV ONE (08:10)
[2024-11-30] MEDS: MORPHINE SULFATE INJ 2 MG/ml SYRG IV PRN (14:29)
[2024-11-30] MEDS: HALOPERIDOL LACTATE 5 MG/ML INJ VIAL IM ONE (15:22)
--- NOTE | 2024-11-30 23:36 | DVHPN2 ---
Progress Note - Dictate Date Seen: Nov 30, 2024 Medical Necessity Reason Pt with a Central, PICC or Fol: No Subjective Patient was seen and evaluated in follow-up in the ICU. Patient was successfully extubated this afternoon. Patient is on 2 LPM NC. WBC 13.3, NA 147, K 3.3, CO2 33. Chest x-ray shows lungs appear mildly improved in aeration with interstitial prominence. No sizable effusion or pneumothorax. vital signs Vital Sign Date Time Temp Pulse Resp B/P (MAP) Pulse Ox O2 Delivery O2 Flow Rate FiO2 11/30/24 13:00 99.5 100 29 111/74 (86) 94 99.5 11/30/24 11:43 Mechanical Ventilator+ 30 30 Total Intake and Output 11/29/24 11/29/24 11/30/24 14:59 22:59 06:59 Intake Total 375.309 ml 814.514 ml 499.588 ml Output Total 2700 ml 680 ml Balance 375.309 ml -1885.486 ml -180.412 ml medications Current Medications Medications Dose Ordered Sig/Dona Route Start Time Stop Time Status Last Admin Dose Admin Ondansetron HCl 4 mg Q4HP PRN IV 11/19/24 08:45 Docusate Sodium 100 mg BIDPRN PRN PO 11/19/24 08:45 Acetaminophen 650 mg Q6HP PRN PO 11/19/24 08:45 11/28/24 14:14 650 MG Nitroglycerin 0.4 mg Q5MINP PRN SL 11/19/24 08:45 Piperacillin Sod/ Tazobactam Sod 100 ml @ 25 mls/hr Q8HR IV 11/19/24 22:00 11/30/24 05:36 25 MLS/HR Pantoprazole Sodium 40 mg DAILY IV 11/20/24 10:00 11/30/24 07:41 40 MG Fentanyl Citrate 250 ml @ 2.5 mls/hr Q24H IV 11/20/24 01:30 11/30/24 05:42 12.5 MLS/HR Norepinephrine Bitartrate 32 mg/ Sodium Chloride 250 ml @ 0.938 mls/ hr Q24H IV 11/20/24 12:00 11/29/24 18:00 0.938 MLS/HR Enteral Nutritional Formula 1,000 ml 50ML/HR GT 11/25/24 09:45 11/28/24 22:18 1,000 ML Sodium Chloride 10 ml QSHIFT@10,22 IV 11/25/24 22:00 11/30/24 07:40 10 ML Enoxaparin Sodium 80 mg Q12HR SC 11/27/24 10:00 11/30/24 07:41 80 MG Lactulose 30 ml BID PO 11/29/24 10:00 11/30/24 07:41 30 ML Bisacodyl 10 mg DAILYP PRN MA 12/01/24 07:30 objective GENERAL: Alert and oriented x 3. No acute distress. EYES: PERRL, EOMI. Anicteric. HENT: Moist mucous membranes. LUNGS: Decreased breath sounds. CARDIOVASCULAR: Regular rate and rhythm. ABDOMEN: Soft, nontender and nondistended. EXTREMITIES: No edema. NEUROLOGIC: No focal neurological deficits. SKIN: Warm, dry. laboratory and microbiology Laboratory Tests 11/30/24 02:30 Test 11/30/24 02:30 Range/Units Serum Glucose 94 74-106 mg/dL Problem List Cardiopulmonary arrest status post CPR with ROSC. Mixed shock, cardiogenic versus septic. De Ginger, decompensated HFrEF, NYHA class IV. NSTEMI, with severe coronary artery disease. Moderate tricuspid valve regurgitation. Acute hypoxic respiratory failure. Acute kidney injury. Bacteremia. Hyperkalemia, resolved. Shock liver. History of methamphetamine use. Assessment/Plan Continued all current supportive medical care. DVT and GI prophylactics. IV antibiotics as ordered. Nitro SL. Additional plan as per the hospital course. Critical care time of 45 minutes provided to include time spent evaluation of patient at bedside, when appropriate patient/family education for diagnosis, treatment plan, review of pertinent medical information and discussion of care with specialty providers and PCP. Dietary Evaluation Review Comments: Nutrition Recommendation: 1) TF Jevity 1.2Cal @ 70ml/hr x 24hr (goal rate) along with Pro-stat 1 pk daily. Start @ 20ml/hr, increase 10ml/hr Q4H until goal is reached. TF @ goal volume along with Pro-stat & Propofol provide 2116 kcal (100% energy needs), 108 gm protein (100% protein needs), 1356 ml free water. 2) Water flush 190 ml Q6H if allowed, adjust PRN 3) TPN if NPO >7 days 4) Monitor NPO status, lab values, wt trend, I/O Expected Outcomes/Goals: To meet >75% estimated needs Lab values to improve Fu 2-3 days Plan discussed with: Patient SULAIMAN MALLOY MD Nov 30, 2024 13:33
[2024-12-01] VITALS (37 sets, daily range): BP systolic 101–145; BP diastolic 58–100; PULSE 83–110; RESP 13–31; TEMP 97.7–98.8; O2SAT 89–97
[2024-12-01 04:33] LABS: Hematocrit 43.2 % (41.0-53.0); Hemoglobin 14.5 g/dL (13.5-17.5); Mean Corpuscular Hemoglobin 30.5 pg (28.0-32.0); Mean Corpuscular Volume 90.8 fL (80.0-100.0); Nucleated Red Blood Cells % 0.0 %
[2024-12-01 04:44] LABS: Chloride 107 mmol/L (98-107)
[2024-12-01 04:45] LABS: Anion Gap 9 (5-15); Calcium 8.6 mg/dL (8.7-10.4); Carbon Dioxide 31 mmol/L (20-31); Potassium 3.3 mmol/L (3.5-5.1); Sodium 147 mmol/L (136-145)
[2024-12-01 04:50] LABS: BUN/Creatinine Ratio 9.9 (10.0-20.0); Glucose 85 mg/dL (74-106)
[2024-12-01 04:51] LABS: Magnesium 1.9 mg/dL (1.6-2.6)
[2024-12-01 04:56] LABS: Blood Urea Nitrogen 8 mg/dL (9-23)
--- NOTE | 2024-12-01 05:31 | DVH ---
CHEST RADIOGRAPH Indication: chf Technique: Single frontal view of the chest was obtained COMPARISON: XY CHEST PORTABLE on DOS: 11/30/24, XY CHEST XRAY 1 VIEW on DOS: 11/29/24, XY CHEST PORTABL E on DOS: 11/28/24, XY CHEST PORTABLE on DOS: 11/27/24, XY CHEST PORTABLE on DOS: 11/26/24 FINDINGS: Lines and Tubes: Status post interval extubation and removal of enteric catheter. Right peripherally inserted central catheter unchanged. Lungs: Progressive interval increase in diffuse prominence of the pulmonary vasculature. No definite focal consolidation. Pleura: No effusion. No pneumothorax. Cardiomediastinal contours: Cardiomegaly. Bones: Unremarkable IMPRESSION: 1. Interval extubation and removal of enteric catheter. Right PICC unchanged. 2. Progressive interval increase in diffuse prominence of the pulmonary vasculature. 3. Cardiomegaly.
[2024-12-01] MEDS: HALOPERIDOL LACTATE 5 MG/ML INJ VIAL IM PRN (05:46)
[2024-12-01] MEDS ORDERED: BISACODYL 10 MG RECT SUPP PR PRN (07:30)
--- NOTE | 2024-12-01 08:51 | DVHPN2 ---
[facility] DOS: 11/30/2024 Patient seen and examined at bedside. Extubated, currently on supplemental oxygen Overnight events reviewed. HPI: A 69-year-old man with PMHx of hypertension and methamphetamine abuse who came to the ER on 11/19/24 for evaluation of shortness of breath. Per ER documentation, patient presented with complaints of shortness of breath x 1 week. While in the ER he was given a breathing treatment and placed on oxygen. He continued to have shortness of breath, increased work of breathing, and anxiety. He was placed on BiPAP, not tolerating due to anxiety. He subsequently had a cardiac arrest while in the ER, achieved ROSC and patient was intubated and placed on mechanical ventilator. He was admitted for further care. Pulmonary consultation is requested for evaluation and management d/t acute hypoxic respiratory failure requiring mechanical ventilator Past Medical History: Hypertension, methamphetamine abuse (per ER records). Past Surgical History: Unable to obtain Medications: Reviewed. Allergies: No known drug allergies. Family History: No family history of premature CAD. No family history of lung disorders. Social History: Nonsmoker. No alcohol use. Hx of methamphetamine abuse. Reviewed: Care Plan, H&P, Labs, Medications Changes from previous H/P or p: Changes General: Per HPI Objective Vitals Vital Signs Date Time Temp Pulse Resp B/P (MAP) Pulse Ox O2 Delivery O2 Flow Rate FiO2 12/01/24 06:00 97 12/01/24 06:00 21 128/70 (89) 91 12/01/24 06:00 Nasal Cannula* 2 28 12/01/24 04:00 98.8 98.8 Intake/Output Intake and Output 12/01/24 06:59 Intake Total 788.40 ml Output Total 1450 ml Balance -661.60 ml Intake Oral 200 ml IV Total 588.40 ml Output Urine Total 1450 ml # Bowel Movements 9 General Appearance: Alert, Oriented X3, No acute distress HEENT: Atraumatic, PERRLA Lungs: Clear to auscultation, Other (Decreased air entry bilaterally) Cardiovascular: Normal S1, Normal S2, Other (Sinus bradycardia) Abdomen: Normal bowel sounds, Soft, No tenderness Genitourinary: No Apparent Abnormalities (Mayo catheter) Musculoskeletal: Normal sensory function, Normal motor function Neuro: Strength at 5/5 X4 ext, Cranial nerves 3-12 NL Skin: Dry, Intact Psych/Mental Status: Mental status NL, Mood NL Medications Current Medications Medications Dose Ordered Sig/Dona Route Start Time Stop Time Status Last Admin Dose Admin Ondansetron HCl 4 mg Q4HP PRN IV 11/19/24 08:45 Docusate Sodium 100 mg BIDPRN PRN PO 11/19/24 08:45 Acetaminophen 650 mg Q6HP PRN PO 11/19/24 08:45 11/28/24 14:14 650 MG Nitroglycerin 0.4 mg Q5MINP PRN SL 11/19/24 08:45 Piperacillin Sod/ Tazobactam Sod 100 ml @ 25 mls/hr Q8HR IV 11/19/24 22:00 12/01/24 05:23 25 MLS/HR Pantoprazole Sodium 40 mg DAILY IV 11/20/24 10:00 11/30/24 07:41 40 MG Norepinephrine Bitartrate 32 mg/ Sodium Chloride 250 ml @ 0.938 mls/ hr Q24H IV 11/20/24 12:00 11/29/24 18:00 0.938 MLS/HR Enteral Nutritional Formula 1,000 ml 50ML/HR GT 11/25/24 09:45 11/28/24 22:18 1,000 ML Sodium Chloride 10 ml QSHIFT@10,22 IV 11/25/24 22:00 11/30/24 21:47 10 ML Enoxaparin Sodium 80 mg Q12HR SC 11/27/24 10:00 11/30/24 21:47 80 MG Lactulose 30 ml BID PO 11/29/24 10:00 11/30/24 07:41 30 ML Bisacodyl 10 mg DAILYP PRN [place] 12/01/24 07:30 Morphine Sulfate 1 mg Q3HP PRN IV 11/30/24 14:15 11/30/24 14:29 1 MG Haloperidol Lactate 2.5 mg Q8HP PRN IM 11/30/24 22:00 12/01/24 05:46 2.5 MG Furosemide 40 mg BIDD IV 12/01/24 08:30 Potassium Chloride 100 ml @ 50 mls/hr Q2H IV 12/01/24 08:30 12/01/24 12:29 Laboratory Results Laboratory Tests 12/01/24 03:30 Chemistry Test 12/01/24 03:30 Calcium Level 8.6 mg/dL (8.7-10.4) L Magnesium Level 1.9 mg/dL (1.6-2.6) Urinalysis Test 11/19/24 08:35 Urine Color Yellow (Yellow) Urine Clarity Clear (Clear) Urine pH 5.5 (5.0-9.0) Urine Specific [place] 1.017 (1.001-1.035) Urine Protein 1+ (Negative) H Urine Ketones Negative (Negative) Urine Blood 2+ /uL (Negative) H Urine Nitrite Negative (Negative) Urine Bilirubin Negative (Negative) Urine Urobilinogen Normal mg/dL (Negative) Urine Leukocyte Esterase Negative /uL (Negative) Urine RBC 33 /hpf (0 - 3) Urine Microscopic WBC 6 /HPF (0-3) H Urine Squamous Epithelial Cells Few /hpf (<5) Urine Bacteria None seen /hpf (None Seen) Urine Osmolality 518 mOsm/kg Urine Creatinine 104.97 mg/dL (30.0-125.0) Urine Protein/Creatinine Ratio 1.03 Urine Sodium 21 mmol/L (40-220) L Urine Glucose Normal mg/dL (Normal) Urine Total Protein 108.6 mg/dL (1-14) H Microbiology Microbiology Date/Time Source Procedure Growth Status 11/23/24 09:12 Blood Blood Culture - Final NO GROWTH AFTER 5 DAYS OF INCUBATION. Complete 11/20/24 04:00 Nose MRSA Screen - Final Complete 11/19/24 09:42 Sputum Expectorated Sputum Gram Stain - Final Complete 11/19/24 09:42 Respiratory Culture - Final Streptococcus Group B Complete Assessment/Plan Assessment/Plan Impression: Acute hypoxic respiratory failure Chronic hypercarbic respiratory failure, PaCO2 63 mmHg. Hyperkalemia Acute decompensated Heart Failure Acute kidney Injury Methamphetamine use Marijuana use Aspiration Hepatitis C Events: Vent support Patient tolerated CPAP trial and was extubated uneventfully Placed on 40% Cool Mist aerosol mask Continues on pressor support - on Levophed Titrate to keep MAP above 65 mmHg/SBP above 90 mmHg. Continue bronchodilators Continue antibiotics Labs and imaging reviewed. Rest of plan as noted below. Plan: s/p extubation today Continue supplemental oxygen Titrate to keep O2 saturation above 92%. Taper O2 as tolerated Pressors for hemodynamic support. Titrate to keep MAP above 65 mmHg/SBP above 90 mmHg. Continue antibiotics. F/u cultures. Monitor renal function due to Acute kidney injury. Diurese to euvolemia Monitor electrolytes. Supplement as necessary. Hypokalemia, supplement Nutritional support. Accucheks, ISS. GI/DVT prophylaxis. Condition: Critical Prognosis: Poor given multiple comorbidities. Rest of plan per hospitalist and other consultants. A total of 35 minutes of critical care time was spent reviewing the patient record, examining the patient, making a diagnostic and therapeutic plan, discussing this plan with the medical personnel, following up on diagnostic studies and following the patient for clinical stability excluding any and all procedures. At least 50% of this time was spent in direct, [id number] contact. Thank you for allowing me to participate in this patient's care. Further recommendations will depend on patient's clinical course. Please do not hesitate to contact me if you have any questions or concerns. This medical document was created using an electronic medical record system with [employer] dictation system. Although this document has been carefully reviewed, there may still be some phonetic and typographical errors. These areas are purely typographical due to imperfections of the software programs, and do not reflect any compromise in the patient's medical care. Plan discussed with: Patient, Other (RN) Date of Service: Nov 30, 2024 Billing Provider: JHONY GARIBAY MD Common Visit Codes: [id number] INP/OBS CARE(HIGH), [id number] CARE 30-74 MIN JHONY GARIBAY MD Dec 01, 2024 08:51
[2024-12-01] MEDS: FUROSEMIDE 40 MG/4 ML VIAL IV SCH (09:35)
[2024-12-01] MEDS: POTASSIUM CHL 20MEQ/100ML 100 ML IV SCH (09:35)
--- NOTE | 2024-12-01 09:35 | DVHPN2 ---
Subjective Patient intubated and following some commands. Reviewed: Care Plan, H&P, Labs, Medications Changes from previous H/P or p: No Changes General: Per HPI Objective Vitals Vital Signs Date Time Temp Pulse Resp B/P (MAP) Pulse Ox O2 Delivery O2 Flow Rate FiO2 12/01/24 06:00 97 12/01/24 06:00 21 128/70 (89) 91 12/01/24 06:00 Nasal Cannula* 2 28 12/01/24 04:00 98.8 98.8 Intake/Output Intake and Output 12/01/24 06:59 Intake Total 788.40 ml Output Total 1450 ml Balance -661.60 ml Intake Oral 200 ml IV Total 588.40 ml Output Urine Total 1450 ml # Bowel Movements 9 General Appearance: Alert, Cooperative, mild distress, Other (Chemically sedated) HEENT: Atraumatic, PERRLA Lungs: Normal air movement, Other (Mechanical ventilation. Bilateral rhonchi) Cardiovascular: Normal S1, Normal S2, Other (Sinus bradycardia) Abdomen: Normal bowel sounds, Soft, No tenderness Genitourinary: No Apparent Abnormalities (Mayo catheter) Neuro: Cranial nerves 3-12 NL Skin: Dry, Intact Psych/Mental Status: Mental status NL Medications Current Medications Medications Dose Ordered Sig/Dona Route Start Time Stop Time Status Last Admin Dose Admin Ondansetron HCl 4 mg Q4HP PRN IV 11/19/24 08:45 Docusate Sodium 100 mg BIDPRN PRN PO 11/19/24 08:45 Acetaminophen 650 mg Q6HP PRN PO 11/19/24 08:45 11/28/24 14:14 650 MG Nitroglycerin 0.4 mg Q5MINP PRN SL 11/19/24 08:45 Piperacillin Sod/ Tazobactam Sod 100 ml @ 25 mls/hr Q8HR IV 11/19/24 22:00 12/01/24 05:23 25 MLS/HR Pantoprazole Sodium 40 mg DAILY IV 11/20/24 10:00 11/30/24 07:41 40 MG Norepinephrine Bitartrate 32 mg/ Sodium Chloride 250 ml @ 0.938 mls/ hr Q24H IV 11/20/24 12:00 11/29/24 18:00 0.938 MLS/HR Enteral Nutritional Formula 1,000 ml 50ML/HR GT 11/25/24 09:45 11/28/24 22:18 1,000 ML Sodium Chloride 10 ml QSHIFT@, IV 11/25/24 22:00 11/30/24 21:47 10 ML Enoxaparin Sodium 80 mg Q12HR SC 11/27/24 10:00 11/30/24 21:47 80 MG Lactulose 30 ml BID PO 11/29/24 10:00 11/30/24 07:41 30 ML Bisacodyl 10 mg DAILYP PRN [place] 12/01/24 07:30 Morphine Sulfate 1 mg Q3HP PRN IV 11/30/24 14:15 11/30/24 14:29 1 MG Haloperidol Lactate 2.5 mg Q8HP PRN IM 11/30/24 22:00 12/01/24 05:46 2.5 MG Furosemide 40 mg BIDD IV 12/01/24 08:30 Potassium Chloride 100 ml @ 50 mls/hr Q2H IV 12/01/24 08:30 12/01/24 12:29 Laboratory Results Laboratory Tests 12/01/24 03:30 Chemistry Test 12/01/24 03:30 Calcium Level 8.6 mg/dL (8.7-10.4) L Magnesium Level 1.9 mg/dL (1.6-2.6) Urinalysis Test 11/19/24 08:35 Urine Color Yellow (Yellow) Urine Clarity Clear (Clear) Urine pH 5.5 (5.0-9.0) Urine Specific [place] 1.017 (1.001-1.035) Urine Protein 1+ (Negative) H Urine Ketones Negative (Negative) Urine Blood 2+ /uL (Negative) H Urine Nitrite Negative (Negative) Urine Bilirubin Negative (Negative) Urine Urobilinogen Normal mg/dL (Negative) Urine Leukocyte Esterase Negative /uL (Negative) Urine RBC 33 /hpf (0 - 3) Urine Microscopic WBC 6 /HPF (0-3) H Urine Squamous Epithelial Cells Few /hpf (<5) Urine Bacteria None seen /hpf (None Seen) Urine Osmolality 518 mOsm/kg Urine Creatinine 104.97 mg/dL (30.0-125.0) Urine Protein/Creatinine Ratio 1.03 Urine Sodium 21 mmol/L (40-220) L Urine Glucose Normal mg/dL (Normal) Urine Total Protein 108.6 mg/dL (1-14) H Microbiology Microbiology Date/Time Source Procedure Growth Status 11/23/24 09:12 Blood Blood Culture - Final NO GROWTH AFTER 5 DAYS OF INCUBATION. Complete 11/20/24 04:00 Nose MRSA Screen - Final Complete 11/19/24 09:42 Sputum Expectorated Sputum Gram Stain - Final Complete 11/19/24 09:42 Respiratory Culture - Final Streptococcus Group B Complete Labs and/or images reviewed: Labs reviewed by me, Image(s) reviewed by me Assessment/Plan Assessment/Plan Impression: -S/P cardiopulmonary arrest -Acute Hypoxic Respiratory Failure -Acute Decompensated Heart Failure -Hyperkalemia -Acute Kidney Injury/ VMN -Cardiogenic shock -Hx of Amphetamine use -NSTEMI type II -aspiration pneumonia -acute delirium Plan: Events: Patient is awake, following commands. No respiratory distress noted. Patient with worsening pulmonary vascular congestion on chest x-ray -O2 supplementation to keep saturation greater than 92% -potassium replacement -change Lasix to 40 mg IV b.i.d. -continue full-dose anticoagulation -stop antibiotic therapy -initiate guideline directed medical therapy once patient was found able to swallow -cardiology consultation: Recommendations reviewed -Nephrology consult: Recommendations reviewed -PUD/DVT prophylaxis -K and Mg replete -repeat labs in a.m. -Discussed plan of care with sister Yolette. All questions answered Critical care time spent with patient discussing and formulating plan of care: 90 minutes. This does not include time spent performing procedures. This medical document was created using an electronic medical record system with [employer] dictation system. Although this document has been carefully reviewed, there may still be some phonetic and typographical errors. These areas are purely typographical due to imperfections of the software programs, and do not reflect any compromise in the patient's medical care. Plan discussed with: Patient, Other (RN) My Orders Orders - AURELIO ZAMARRIPA [employer] Procedure Category Date Status Time Extubate MAYRA 11/30/24 In Process 12:23 Morphine Sulfate PHA 11/30/24 In Process Injection 14:15 Haloperidol Lactate PHA 11/30/24 In Process Injection (Haldol) 22:00 Furosemide Injection PHA 12/01/24 In Process (Lasix Injection) 08:30 Potassium Chl PHA 12/01/24 In Process 20meq/100ml 08:30 Date of Service: Dec 01, 2024 Billing Provider: AURELIO ZAMARRIPA NP Common Visit Codes: [id number] CARE 30-74 MIN AURELIO ZAMARRIPA NP Dec 01, 2024 09:35
--- NOTE | 2024-12-01 22:59 | DVHPN2 ---
[facility] DOS: 12/01/2024 Patient seen and examined at bedside. Remains on supplemental oxygen. Overnight events reviewed. HPI: A 69-year-old man with PMHx of hypertension and methamphetamine abuse who came to the ER on 11/19/24 for evaluation of shortness of breath. Per ER documentation, patient presented with complaints of shortness of breath x 1 week. While in the ER he was given a breathing treatment and placed on oxygen. He continued to have shortness of breath, increased work of breathing, and anxiety. He was placed on BiPAP, not tolerating due to anxiety. He subsequently had a cardiac arrest while in the ER, achieved ROSC and patient was intubated and placed on mechanical ventilator. He was admitted for further care. Pulmonary consultation is requested for evaluation and management d/t acute hypoxic respiratory failure requiring mechanical ventilator Past Medical History: Hypertension, methamphetamine abuse (per ER records). Past Surgical History: Unable to obtain Medications: Reviewed. Allergies: No known drug allergies. Family History: No family history of premature CAD. No family history of lung disorders. Social History: Nonsmoker. No alcohol use. Hx of methamphetamine abuse. Reviewed: Care Plan, H&P, Labs, Medications Changes from previous H/P or p: No Changes General: Per HPI Objective Vitals Vital Signs Date Time Temp Pulse Resp B/P (MAP) Pulse Ox O2 Delivery O2 Flow Rate FiO2 12/01/24 22:45 87 15 104/66 (79) 95 12/01/24 22:00 Nasal Cannula* 4 36 12/01/24 20:00 97.7 97.7 Intake/Output Intake and Output 12/01/24 07:00 Intake Total 753.72 ml Output Total 1450 ml Balance -696.28 ml Intake Oral 200 ml IV Total 553.72 ml Output Urine Total 1450 ml # Bowel Movements 9 General Appearance: Alert, Cooperative, No acute distress HEENT: Atraumatic, PERRLA Lungs: Clear to auscultation, Other (Decreased air entry bilaterally) Cardiovascular: Normal S1, Normal S2, Other (Sinus bradycardia) Abdomen: Normal bowel sounds, Soft, No tenderness Genitourinary: No Apparent Abnormalities (Mayo catheter) Neuro: Strength at 5/5 X4 ext, Cranial nerves 3-12 NL Skin: Dry, Intact Psych/Mental Status: Mental status NL Medications Current Medications Medications Dose Ordered Sig/Dona Route Start Time Stop Time Status Last Admin Dose Admin Ondansetron HCl 4 mg Q4HP PRN IV 11/19/24 08:45 Docusate Sodium 100 mg BIDPRN PRN PO 11/19/24 08:45 Acetaminophen 650 mg Q6HP PRN PO 11/19/24 08:45 11/28/24 14:14 650 MG Nitroglycerin 0.4 mg Q5MINP PRN SL 11/19/24 08:45 Piperacillin Sod/ Tazobactam Sod 100 ml @ 25 mls/hr Q8HR IV 11/19/24 22:00 12/01/24 21:57 25 MLS/HR Pantoprazole Sodium 40 mg DAILY IV 11/20/24 10:00 12/01/24 09:35 40 MG Norepinephrine Bitartrate 32 mg/ Sodium Chloride 250 ml @ 0.938 mls/ hr Q24H IV 11/20/24 12:00 11/29/24 18:00 0.938 MLS/HR Enteral Nutritional Formula 1,000 ml 50ML/HR GT 11/25/24 09:45 11/28/24 22:18 1,000 ML Sodium Chloride 10 ml QSHIFT@10,22 IV 11/25/24 22:00 12/01/24 21:57 10 ML Enoxaparin Sodium 80 mg Q12HR SC 11/27/24 10:00 12/01/24 21:57 80 MG Lactulose 30 ml BID PO 11/29/24 10:00 11/30/24 07:41 30 ML Bisacodyl 10 mg DAILYP PRN IN 12/01/24 07:30 Morphine Sulfate 1 mg Q3HP PRN IV 11/30/24 14:15 11/30/24 14:29 1 MG Haloperidol Lactate 2.5 mg Q8HP PRN IM 11/30/24 22:00 12/01/24 05:46 2.5 MG Furosemide 40 mg BIDD IV 12/01/24 08:30 12/01/24 17:13 40 MG Laboratory Results Laboratory Tests 12/01/24 03:30 Chemistry Test 12/01/24 03:30 Calcium Level 8.6 mg/dL (8.7-10.4) L Magnesium Level 1.9 mg/dL (1.6-2.6) Urinalysis Test 11/19/24 08:35 Urine Color Yellow (Yellow) Urine Clarity Clear (Clear) Urine pH 5.5 (5.0-9.0) Urine Specific [place] 1.017 (1.001-1.035) Urine Protein 1+ (Negative) H Urine Ketones Negative (Negative) Urine Blood 2+ /uL (Negative) H Urine Nitrite Negative (Negative) Urine Bilirubin Negative (Negative) Urine Urobilinogen Normal mg/dL (Negative) Urine Leukocyte Esterase Negative /uL (Negative) Urine RBC 33 /hpf (0 - 3) Urine Microscopic WBC 6 /HPF (0-3) H Urine Squamous Epithelial Cells Few /hpf (<5) Urine Bacteria None seen /hpf (None Seen) Urine Osmolality 518 mOsm/kg Urine Creatinine 104.97 mg/dL (30.0-125.0) Urine Protein/Creatinine Ratio 1.03 Urine Sodium 21 mmol/L (40-220) L Urine Glucose Normal mg/dL (Normal) Urine Total Protein 108.6 mg/dL (1-14) H Microbiology Microbiology Date/Time Source Procedure Growth Status 11/23/24 09:12 Blood Blood Culture - Final NO GROWTH AFTER 5 DAYS OF INCUBATION. Complete 11/20/24 04:00 Nose MRSA Screen - Final Complete 11/19/24 09:42 Sputum Expectorated Sputum Gram Stain - Final Complete 11/19/24 09:42 Respiratory Culture - Final Streptococcus Group B Complete Assessment/Plan Assessment/Plan Impression: Acute hypoxic respiratory failure Chronic hypercarbic respiratory failure, PaCO2 63 mmHg. Dependence on supplemental oxygen Hyperkalemia Acute decompensated Heart Failure Acute kidney Injury Methamphetamine use Marijuana use Aspiration Hepatitis C Events: Remains on supplemental oxygen On 4 LPM NC Taper O2 as tolerated Swallow evaluation Head of bed elevation Aspiration precautions Off pressors, hemodynamically stable. Monitor closely d/t high risk of aspiration Continue bronchodilators Continue antibiotics Diurese with Lasix Monitor renal function Monitor electrolytes. Supplement as necessary. Potassium supplementation Labs and imaging reviewed. Rest of plan as noted below. Plan: s/p extubation on 11/30/24 Continue supplemental oxygen Titrate to keep O2 saturation above 92%. Taper O2 as tolerated Pressors if necessary for hemodynamic support. Titrate to keep MAP above 65 mmHg/SBP above 90 mmHg. Continue antibiotics. F/u cultures. Bronchodilators Monitor renal function due to acute kidney injury. Diurese to euvolemia Monitor electrolytes. Supplement as necessary. Hypokalemia, supplement Nutritional support. Accucheks, ISS. GI/DVT prophylaxis. Condition: Critical Prognosis: Poor given multiple comorbidities. Rest of plan per hospitalist and other consultants. A total of 35 minutes of critical care time was spent reviewing the patient record, examining the patient, making a diagnostic and therapeutic plan, discussing this plan with the medical personnel, following up on diagnostic studies and following the patient for clinical stability excluding any and all procedures. At least 50% of this time was spent in direct, [id number] contact. Thank you for allowing me to participate in this patient's care. Further recommendations will depend on patient's clinical course. Please do not hesitate to contact me if you have any questions or concerns. This medical document was created using an electronic medical record system with [employer]. Although this document has been carefully reviewed, there may still be some phonetic and typographical errors. These areas are purely typographical due to imperfections of the software programs, and do not reflect any compromise in the patient's medical care. Plan discussed with: Other (SELMA Lemons) My Orders Orders - JHONY GARIBYA MD Procedure Category Date Status Time Phosphorus LAB 12/02/24 Verified 04:00 Magnesium LAB 12/02/24 Verified 04:00 Date of Service: Dec 01, 2024 Billing Provider: JHONY GARIBAY MD Common Visit Codes: [id number] INP/OBS CARE(HIGH), [id number] CARE 30-74 MIN JHONY GARIBAY MD Dec 01, 2024 22:59
--- NOTE | 2024-12-01 23:51 | DVHPN2 ---
Progress Note - Dictate Date Seen: Dec 01, 2024 Medical Necessity Reason Pt with a Central, PICC or Fol: No Subjective Patient was seen and evaluated in follow-up in the ICU. Patient is on 4 LPM NC. Patient is complaining of generalized pain. WBC 15.1, NA 147, K 3.3 Patients potassium was replaced. vital signs Vital Sign Date Time Temp Pulse Resp B/P (MAP) Pulse Ox O2 Delivery O2 Flow Rate FiO2 12/01/24 22:45 87 15 104/66 (79) 95 12/01/24 22:00 Nasal Cannula* 4 36 12/01/24 20:00 97.7 97.7 Total Intake and Output 11/30/24 11/30/24 12/01/24 15:00 23:00 07:00 Intake Total 303.72 ml 350 ml 100 ml Output Total 1100 ml 350 ml Balance 303.72 ml -750 ml -250 ml medications Current Medications Medications Dose Ordered Sig/Dona Route Start Time Stop Time Status Last Admin Dose Admin Ondansetron HCl 4 mg Q4HP PRN IV 11/19/24 08:45 Docusate Sodium 100 mg BIDPRN PRN PO 11/19/24 08:45 Acetaminophen 650 mg Q6HP PRN PO 11/19/24 08:45 11/28/24 14:14 650 MG Nitroglycerin 0.4 mg Q5MINP PRN SL 11/19/24 08:45 Piperacillin Sod/ Tazobactam Sod 100 ml @ 25 mls/hr Q8HR IV 11/19/24 22:00 12/01/24 21:57 25 MLS/HR Pantoprazole Sodium 40 mg DAILY IV 11/20/24 10:00 12/01/24 09:35 40 MG Norepinephrine Bitartrate 32 mg/ Sodium Chloride 250 ml @ 0.938 mls/ hr Q24H IV 11/20/24 12:00 11/29/24 18:00 0.938 MLS/HR Enteral Nutritional Formula 1,000 ml 50ML/HR GT 11/25/24 09:45 11/28/24 22:18 1,000 ML Sodium Chloride 10 ml QSHIFT@10,22 IV 11/25/24 22:00 12/01/24 21:57 10 ML Enoxaparin Sodium 80 mg Q12HR SC 11/27/24 10:00 12/01/24 21:57 80 MG Lactulose 30 ml BID PO 11/29/24 10:00 11/30/24 07:41 30 ML Bisacodyl 10 mg DAILYP PRN [place] 12/01/24 07:30 Morphine Sulfate 1 mg Q3HP PRN IV 11/30/24 14:15 11/30/24 14:29 1 MG Haloperidol Lactate 2.5 mg Q8HP PRN IM 11/30/24 22:00 12/01/24 05:46 2.5 MG Furosemide 40 mg BIDD IV 12/01/24 08:30 12/01/24 17:13 40 MG objective GENERAL: Alert and oriented x 3. No acute distress. EYES: PERRL, EOMI. Anicteric. HENT: Moist mucous membranes. LUNGS: Decreased breath sounds. CARDIOVASCULAR: Regular rate and rhythm. ABDOMEN: Soft, nontender and nondistended. EXTREMITIES: No edema. NEUROLOGIC: No focal neurological deficits. SKIN: Warm, dry. laboratory and microbiology Laboratory Tests 12/01/24 03:30 Test 12/01/24 03:30 Range/Units Serum Glucose 85 74-106 mg/dL Problem List Cardiopulmonary arrest status post CPR with ROSC. Mixed shock, cardiogenic versus septic. [place], decompensated HFrEF, NYHA class IV. NSTEMI, with severe coronary artery disease. Moderate tricuspid valve regurgitation. Acute hypoxic respiratory failure. Acute kidney injury. Bacteremia. Hyperkalemia, resolved. Shock liver. History of methamphetamine use. Assessment/Plan Continued all current supportive medical care. DVT and GI prophylactics. IV antibiotics as ordered. Nitro SL. Additional plan as per the hospital course. Critical care time of 45 minutes provided to include time spent evaluation of patient at bedside, when appropriate patient/family education for diagnosis, treatment plan, review of pertinent medical information and discussion of care with specialty providers and PCP. Dietary Evaluation Review Comments: Nutrition Recommendation: 1) TF Jevity 1.2Cal @ 70ml/hr x 24hr (goal rate) along with Pro-stat 1 pk daily. Start @ 20ml/hr, increase 10ml/hr Q4H until goal is reached. TF @ goal volume along with Pro-stat & Propofol provide 2116 kcal (100% energy needs), 108 gm protein (100% protein needs), 1356 ml free water. 2) Water flush 190 ml Q6H if allowed, adjust PRN 3) TPN if NPO >7 days 4) Monitor NPO status, lab values, wt trend, I/O Expected Outcomes/Goals: To meet >75% estimated needs Lab values to improve Fu 2-3 days Plan discussed with: Patient SULAIMAN MALLOY MD Dec 01, 2024 23:51
[2024-12-02] VITALS (68 sets, daily range): BP systolic 42–137; BP diastolic 28–96; PULSE 61–98; RESP 13–29; TEMP 96.4–98; O2SAT 91–100
[2024-12-02 04:25] LABS: Anion Gap 9 (5-15); Chloride 98 mmol/L (98-107); Hematocrit 40.7 % (41.0-53.0); Hemoglobin 14.0 g/dL (13.5-17.5); Mean Corpuscular Hemoglobin 31.2 pg (28.0-32.0); Mean Corpuscular Volume 90.4 fL (80.0-100.0); Nucleated Red Blood Cells % 0.0 %; Sodium 140 mmol/L (136-145)
[2024-12-02 04:31] LABS: Glucose 99 mg/dL (74-106)
[2024-12-02 04:32] LABS: BUN/Creatinine Ratio 13.0 (10.0-20.0); Blood Urea Nitrogen 9 mg/dL (9-23); Magnesium 1.7 mg/dL (1.6-2.6)
[2024-12-02 04:37] LABS: Calcium 8.4 mg/dL (8.7-10.4); Carbon Dioxide 33 mmol/L (20-31)
[2024-12-02 04:39] LABS: Potassium 2.5 mmol/L (3.5-5.1)
--- NOTE | 2024-12-02 05:04 | DVH ---
CHEST RADIOGRAPH Indication: chf Technique: Single frontal view of the chest was obtained COMPARISON: XY CHEST PORTABLE on DOS: 12/01/24, XY CHEST PORTABLE on DOS: 11/30/24, XY CHEST XRAY 1 VIE W on DOS: 11/29/24, XY CHEST PORTABLE on DOS: 11/28/24, XY CHEST PORTABLE on DOS: 11/27/24 FINDINGS: Lines and Tubes: Right peripherally inserted central catheter unchanged. Lungs: Persistent diffuse increased prominence of the pulmonary vasculature without evidence of focal consolidation. Pleura: No effusion. No pneumothorax. Cardiomediastinal contours: Cardiomegaly. Bones: Unremarkable IMPRESSION: 1. Cardiomegaly and Stable appearing diffuse Increased prominence of the pulmonary vasculature. 2. Right PICC.
[2024-12-02] MEDS: MAGNESIUM SULFATE 1GM/100ML 100 ML IV SCH (05:32)
[2024-12-02] MEDS: POTASSIUM EFFERVESENT TAB 25 MEQ PO ONE (05:40)
[2024-12-02] MEDS: POTASSIUM CHL 20MEQ/100ML 100 ML IV SCH ×2 (06:33→16:39)
--- NOTE | 2024-12-02 09:36 | DVHPN2 ---
Subjective Patient more alert. Denies any symptoms. Reviewed: Care Plan, H&P, Labs, Medications Changes from previous H/P or p: No Changes General: Per HPI Objective Vitals Vital Signs Date Time Temp Pulse Resp B/P (MAP) Pulse Ox O2 Delivery O2 Flow Rate FiO2 12/02/24 09:15 94 14 112/85 (94) 98 12/02/24 08:00 Nasal Cannula* 4 36 12/02/24 08:00 96.9 96.9 Intake/Output Intake and Output 12/02/24 07:00 Intake Total 2770 ml Output Total 3775 ml Balance -1005 ml Intake Oral 1920 ml IV Total 850 ml Output Urine Total 3775 ml Stool Total 0 ml # Bowel Movements 2 General Appearance: Alert, Oriented X3, Cooperative, No acute distress HEENT: Atraumatic, PERRLA Lungs: Clear to auscultation, Other (Decreased air entry bilaterally) Cardiovascular: Normal S1, Normal S2, Other (Sinus bradycardia) Abdomen: Normal bowel sounds, Soft, No tenderness Genitourinary: No Apparent Abnormalities (Mayo catheter) Musculoskeletal: Normal sensory function, Normal motor function Neuro: Strength at 5/5 X4 ext, Cranial nerves 3-12 NL Skin: Dry, Intact Psych/Mental Status: Mental status NL, Mood NL Medications Current Medications Medications Dose Ordered Sig/Dona Route Start Time Stop Time Status Last Admin Dose Admin Ondansetron HCl 4 mg Q4HP PRN IV 11/19/24 08:45 Docusate Sodium 100 mg BIDPRN PRN PO 11/19/24 08:45 Acetaminophen 650 mg Q6HP PRN PO 11/19/24 08:45 11/28/24 14:14 650 MG Nitroglycerin 0.4 mg Q5MINP PRN SL 11/19/24 08:45 Pantoprazole Sodium 40 mg DAILY IV 11/20/24 10:00 12/01/24 09:35 40 MG Norepinephrine Bitartrate 32 mg/ Sodium Chloride 250 ml @ 0.938 mls/ hr Q24H IV 11/20/24 12:00 11/29/24 18:00 0.938 MLS/HR Enteral Nutritional Formula 1,000 ml 50ML/HR GT 11/25/24 09:45 11/28/24 22:18 1,000 ML Sodium Chloride 10 ml QSHIFT@10,22 IV 11/25/24 22:00 12/01/24 21:57 10 ML Enoxaparin Sodium 80 mg Q12HR SC 11/27/24 10:00 12/01/24 21:57 80 MG Bisacodyl 10 mg DAILYP PRN [place] 12/01/24 07:30 Morphine Sulfate 1 mg Q3HP PRN IV 11/30/24 14:15 11/30/24 14:29 1 MG Haloperidol Lactate 2.5 mg Q8HP PRN IM 11/30/24 22:00 12/01/24 05:46 2.5 MG Furosemide 40 mg BIDD IV 12/01/24 08:30 12/02/24 06:06 40 MG Metoprolol Tartrate 12.5 mg BID PO 12/02/24 10:00 UNV Empaglifozin 10 mg DAILY PO 12/02/24 10:00 UNV Laboratory Results Laboratory Tests 12/02/24 03:30 Chemistry Test 12/02/24 03:30 Calcium Level 8.4 mg/dL (8.7-10.4) L Magnesium Level 1.7 mg/dL (1.6-2.6) Phosphorus Level 2.4 mg/dL (2.4-5.1) Urinalysis Test 11/19/24 08:35 Urine Color Yellow (Yellow) Urine Clarity Clear (Clear) Urine pH 5.5 (5.0-9.0) Urine Specific [place] 1.017 (1.001-1.035) Urine Protein 1+ (Negative) H Urine Ketones Negative (Negative) Urine Blood 2+ /uL (Negative) H Urine Nitrite Negative (Negative) Urine Bilirubin Negative (Negative) Urine Urobilinogen Normal mg/dL (Negative) Urine Leukocyte Esterase Negative /uL (Negative) Urine RBC 33 /hpf (0 - 3) Urine Microscopic WBC 6 /HPF (0-3) H Urine Squamous Epithelial Cells Few /hpf (<5) Urine Bacteria None seen /hpf (None Seen) Urine Osmolality 518 mOsm/kg Urine Creatinine 104.97 mg/dL (30.0-125.0) Urine Protein/Creatinine Ratio 1.03 Urine Sodium 21 mmol/L (40-220) L Urine Glucose Normal mg/dL (Normal) Urine Total Protein 108.6 mg/dL (1-14) H Microbiology Microbiology Date/Time Source Procedure Growth Status 11/23/24 09:12 Blood Blood Culture - Final NO GROWTH AFTER 5 DAYS OF INCUBATION. Complete 11/20/24 04:00 Nose MRSA Screen - Final Complete 11/19/24 09:42 Sputum Expectorated Sputum Gram Stain - Final Complete 11/19/24 09:42 Respiratory Culture - Final Streptococcus Group B Complete Labs and/or images reviewed: Labs reviewed by me, Image(s) reviewed by me Assessment/Plan Assessment/Plan Impression: -S/P cardiopulmonary arrest -Acute Hypoxic Respiratory Failure -Acute Decompensated Heart Failure -Hyperkalemia -Acute Kidney Injury/ VMN -Cardiogenic shock -Hx of Amphetamine use -NSTEMI type II -aspiration pneumonia -acute delirium Plan: Events: Patient is severely hypokalemic. Respiratory status improved. -stop antibiotic therapy -loading dose of Plavix, aspirin. Discontinue Lovenox -electrolyte replete -O2 supplementation to keep saturation greater than 92% -change Lasix to 40 mg IV b.i.d. -continue full-dose anticoagulation -start beta-arnie therapy, Jardiance -cardiology consultation: Recommendations reviewed -Nephrology consult: Recommendations reviewed -PUD/DVT prophylaxis -repeat labs in a.m. -transferred to step-down ICU Critical care time spent with patient discussing and formulating plan of care: 90 minutes. This does not include time spent performing procedures. This medical document was created using an electronic medical record system with [employer] dictation system. Although this document has been carefully reviewed, there may still be some phonetic and typographical errors. These areas are purely typographical due to imperfections of the software programs, and do not reflect any compromise in the patient's medical care. Plan discussed with: Patient, Other (RN) My Orders Orders - AURELIO ZAMARRIPA COILER Procedure Category Date Status Time * Swallow Request ST 12/01/24 Transmitted 16:11 Pt Request For Service PT 12/01/24 Logged 16:11 Pureed DIET 12/01/24 Transmitted Dinner Metoprolol Tartrate PHA 12/02/24 Logged Tablet (Lopressor Ta 10:00 Empagliflozin PHA 12/02/24 Logged (Jardiance) 10:00 Potassium LAB 12/02/24 Logged 14:00 Magnesium LAB 12/02/24 Logged 14:00 Pantoprazole Tablet PHA 12/03/24 Transmitted (Protonix Tablet) 06:00 Clopidogrel Bisulfate PHA 12/02/24 Transmitted (Plavix) 09:45 Clopidogrel Bisulfate PHA 12/03/24 Transmitted (Plavix) 10:00 Aspirin Tablet PHA 12/02/24 Transmitted 10:00 Date of Service: Dec 02, 2024 Billing Provider: AURELIO ZAMARRIPA NP Common Visit Codes: [id number] CARE 30-74 MIN AURELIO ZAMARRIPA NP Dec 02, 2024 09:36
[2024-12-02] MEDS: EMPAGLIFLOZIN 10 MG TAB PO SCH (10:00)
[2024-12-02] MEDS: METOPROLOL TARTRATE 25 MG TAB PO SCH (10:01)
[2024-12-02] MEDS: CLOPIDOGREL BISULFATE 75 MG TAB PO ONE (10:02)
[2024-12-02 14:44] LABS: Potassium 3.3 mmol/L (3.5-5.1)
[2024-12-02 14:50] LABS: Magnesium 1.9 mg/dL (1.6-2.6)
[2024-12-02] MEDS: NICOTINE 21MG/24 HR TOPICAL PATCH TD ONE (19:30)
--- NOTE | 2024-12-02 23:53 | DVHPN2 ---
Progress Note - Dictate Date Seen: Dec 02, 2024 Medical Necessity Reason Pt with a Central, PICC or Fol: No Subjective Patient was seen and evaluated in follow-up in the ICU. Patient is on 4 LPM NC. Patient more alert. Patient is complaining of generalized pain. WBC has corrected. K 2.5, potassium was replaced. Chest x-ray shows cardiomegaly and Stable appearing diffuse Increased prominence of the pulmonary vasculature. vital signs Vital Sign Date Time Temp Pulse Resp B/P (MAP) Pulse Ox O2 Delivery O2 Flow Rate FiO2 12/02/24 23:40 74 105/64 12/02/24 22:00 16 97 Nasal Cannula* 4 36 12/02/24 20:00 97.8 97.8 Total Intake and Output 12/01/24 12/01/24 12/02/24 15:00 23:00 07:00 Intake Total 275 ml 895 ml 1600 ml Output Total 2125 ml 1650 ml Balance 275 ml -1230 ml -50 ml medications Current Medications Medications Dose Ordered Sig/Dona Route Start Time Stop Time Status Last Admin Dose Admin Ondansetron HCl 4 mg Q4HP PRN IV 11/19/24 08:45 Docusate Sodium 100 mg BIDPRN PRN PO 11/19/24 08:45 Acetaminophen 650 mg Q6HP PRN PO 11/19/24 08:45 11/28/24 14:14 650 MG Nitroglycerin 0.4 mg Q5MINP PRN SL 11/19/24 08:45 Sodium Chloride 10 ml QSHIFT@10,22 IV 11/25/24 22:00 12/02/24 22:00 10 ML Bisacodyl 10 mg DAILYP PRN [place] 12/01/24 07:30 Morphine Sulfate 1 mg Q3HP PRN IV 11/30/24 14:15 11/30/24 14:29 1 MG Haloperidol Lactate 2.5 mg Q8HP PRN IM 11/30/24 22:00 12/01/24 05:46 2.5 MG Furosemide 40 mg BIDD IV 12/01/24 08:30 12/02/24 17:36 40 MG Metoprolol Tartrate 12.5 mg BID PO 12/02/24 10:00 12/02/24 22:33 12.5 MG Empaglifozin 10 mg DAILY PO 12/02/24 10:00 12/02/24 10:00 10 MG Pantoprazole Sodium 40 mg DAILY@0600 PO 12/03/24 06:00 Clopidogrel Bisulfate 75 mg DAILY PO 12/03/24 10:00 Aspirin 81 mg DAILY PO 12/02/24 10:00 12/02/24 10:01 81 MG Nicotine 1 patch DAILY TD 12/03/24 10:00 objective GENERAL: Alert and oriented x 3. No acute distress. EYES: PERRL, EOMI. Anicteric. HENT: Moist mucous membranes. LUNGS: Decreased breath sounds. CARDIOVASCULAR: Regular rate and rhythm. ABDOMEN: Soft, nontender and nondistended. EXTREMITIES: No edema. NEUROLOGIC: No focal neurological deficits. SKIN: Warm, dry. laboratory and microbiology Laboratory Tests 12/02/24 13:50 12/02/24 03:30 Test 12/02/24 03:30 Range/Units Serum Glucose 99 74-106 mg/dL Problem List Cardiopulmonary arrest status post CPR with ROSC. Mixed shock, cardiogenic versus septic. De Ginger, decompensated HFrEF, NYHA class IV. NSTEMI, with severe coronary artery disease. Moderate tricuspid valve regurgitation. Acute hypoxic respiratory failure. Acute kidney injury. Bacteremia. Hyperkalemia, resolved. Shock liver. History of methamphetamine use. Assessment/Plan Continued all current supportive medical care. Aspirin, Plavix, Metoprolol. Diuretics with Lasix. Morphine for pain management. DVT and GI prophylactics. Nitro SL. Additional plan as per the hospital course. Critical care time of 45 minutes provided to include time spent evaluation of patient at bedside, when appropriate patient/family education for diagnosis, treatment plan, review of pertinent medical information and discussion of care with specialty providers and PCP. Dietary Evaluation Review Comments: Nutrition Recommendation: 1) TF Jevity 1.2Cal @ 70ml/hr x 24hr (goal rate) along with Pro-stat 1 pk daily. Start @ 20ml/hr, increase 10ml/hr Q4H until goal is reached. TF @ goal volume along with Pro-stat & Propofol provide 2116 kcal (100% energy needs), 108 gm protein (100% protein needs), 1356 ml free water. 2) Water flush 190 ml Q6H if allowed, adjust PRN 3) TPN if NPO >7 days 4) Monitor NPO status, lab values, wt trend, I/O Expected Outcomes/Goals: To meet >75% estimated needs Lab values to improve Fu 2-3 days Plan discussed with: Patient SULAIMAN MALLOY MD Dec 02, 2024 23:53
[2024-12-03] VITALS (61 sets, daily range): BP systolic 87–132; BP diastolic 47–102; PULSE 49–97; RESP 12–29; TEMP 97.9–99.6; O2SAT 91–100
[2024-12-03 01:16] LABS: Hematocrit 45.4 % (41.0-53.0); Hemoglobin 15.2 g/dL (13.5-17.5); Mean Corpuscular Hemoglobin 30.2 pg (28.0-32.0); Mean Corpuscular Volume 90.2 fL (80.0-100.0); Nucleated Red Blood Cells % 0.1 %
[2024-12-03 01:34] LABS: Albumin 3.6 g/dL (3.2-4.8); Alkaline Phosphatase 74 U/L (46-116); Anion Gap 7 (5-15); BUN/Creatinine Ratio 12.7 (10.0-20.0); Blood Urea Nitrogen 9 mg/dL (9-23); Calcium 9.0 mg/dL (8.7-10.4); Chloride 99 mmol/L (98-107); Glucose 99 mg/dL (74-106); Magnesium 2.0 mg/dL (1.6-2.6); Sodium 138 mmol/L (136-145); Total Protein 6.5 g/dL (5.7-8.2)
[2024-12-03 01:35] LABS: Alanine Aminotransferase 85 U/L (7-40); Bilirubin, Total 0.9 mg/dL (0.2-1.0); Carbon Dioxide 32 mmol/L (20-31); Potassium 3.3 mmol/L (3.5-5.1)
[2024-12-03] MEDS: POTASSIUM CHL 20MEQ/100ML 100 ML IV ONE (03:30)
--- NOTE | 2024-12-03 05:21 | DVH ---
CHEST RADIOGRAPH Indication: RESP DISTRESS Technique: Single frontal view of the chest was obtained COMPARISON: XY CHEST PORTABLE on DOS: 12/02/24, XY CHEST PORTABLE on DOS: 12/01/24, XY CHEST PORTABLE o n DOS: 11/30/24, XY CHEST XRAY 1 VIEW on DOS: 11/29/24, XY CHEST PORTABLE on DOS: 11/28/24 FINDINGS: Lines and Tubes: Right PICC in satisfactory position overlying the superior vena cava. Lungs: Congestion Pleura: No effusion.No pneumothorax. Cardiomediastinal contours: Unchanged cardiomegaly. Pulmonary vascular congestion: Unchanged. Bones: Unremarkable IMPRESSION: Right PICC in satisfactory position. Unchanged cardiomegaly and pulmonary vascular congestion.
[2024-12-03] MEDS: PANTOPRAZOLE 40 MG TAB PO SCH (06:49)
--- NOTE | 2024-12-03 09:17 | DVHPN2 ---
Subjective Patient more alert. Denies any symptoms. Reviewed: Care Plan, H&P, Labs, Medications Changes from previous H/P or p: No Changes General: Per HPI Objective Vitals Vital Signs Date Time Temp Pulse Resp B/P (MAP) Pulse Ox O2 Delivery O2 Flow Rate FiO2 12/03/24 08:00 84 17 98 Nasal Cannula* 4 36 12/03/24 06:49 111/74 12/03/24 04:00 98.0 98.0 Intake/Output Intake and Output 12/03/24 07:00 Intake Total 2340 ml Output Total 3401 ml Balance -1061 ml Intake Oral 1940 ml IV Total 400 ml Output Urine Total 3400 ml Stool Total 1 ml # Bowel Movements 2 General Appearance: Alert, Oriented X3, Cooperative, No acute distress HEENT: Atraumatic, PERRLA Lungs: Clear to auscultation, Other (Decreased air entry bilaterally) Cardiovascular: Normal S1, Normal S2, Other (Sinus bradycardia) Abdomen: Normal bowel sounds, Soft, No tenderness Genitourinary: No Apparent Abnormalities (Mayo catheter) Musculoskeletal: Normal sensory function, Normal motor function Neuro: Strength at 5/5 X4 ext, Cranial nerves 3-12 NL Skin: Dry, Intact Psych/Mental Status: Mental status NL, Mood NL Medications Current Medications Medications Dose Ordered Sig/Dona Route Start Time Stop Time Status Last Admin Dose Admin Ondansetron HCl 4 mg Q4HP PRN IV 11/19/24 08:45 Docusate Sodium 100 mg BIDPRN PRN PO 11/19/24 08:45 Acetaminophen 650 mg Q6HP PRN PO 11/19/24 08:45 11/28/24 14:14 650 MG Nitroglycerin 0.4 mg Q5MINP PRN SL 11/19/24 08:45 Sodium Chloride 10 ml QSHIFT@10,22 IV 11/25/24 22:00 12/02/24 22:00 10 ML Bisacodyl 10 mg DAILYP PRN [place] 12/01/24 07:30 Morphine Sulfate 1 mg Q3HP PRN IV 11/30/24 14:15 11/30/24 14:29 1 MG Furosemide 40 mg BIDD IV 12/01/24 08:30 12/03/24 06:49 40 MG Metoprolol Tartrate 12.5 mg BID PO 12/02/24 10:00 12/02/24 22:33 12.5 MG Empaglifozin 10 mg DAILY PO 12/02/24 10:00 12/02/24 10:00 10 MG Pantoprazole Sodium 40 mg DAILY@0600 PO 12/03/24 06:00 12/03/24 06:49 40 MG Clopidogrel Bisulfate 75 mg DAILY PO 12/03/24 10:00 Aspirin 81 mg DAILY PO 12/02/24 10:00 12/02/24 10:01 81 MG Nicotine 1 patch DAILY TD 12/03/24 10:00 Sacubitril/ Valsartan 0.5 tab BID PO 12/03/24 10:00 UNV Potassium Bicarbonate 25 meq DAILY PO 12/03/24 10:00 UNV Laboratory Results Laboratory Tests 12/03/24 01:08 Chemistry Test 12/02/24 13:50 12/03/24 01:08 Magnesium Level 1.9 mg/dL (1.6-2.6) 2.0 mg/dL (1.6-2.6) Albumin 3.6 g/dL (3.2-4.8) Calcium Level 9.0 mg/dL (8.7-10.4) Phosphorus Level 3.3 mg/dL (2.4-5.1) Total Protein 6.5 g/dL (5.7-8.2) LFT Test 12/03/24 01:08 Alanine Aminotransferase (ALT) 85 U/L (7-40) H Alkaline Phosphatase 74 U/L (46-116) Aspartate Amino Transferase (AST) 66 U/L (13-40) H Total Bilirubin 0.9 mg/dL (0.2-1.0) Urinalysis Test 11/19/24 08:35 Urine Color Yellow (Yellow) Urine Clarity Clear (Clear) Urine pH 5.5 (5.0-9.0) Urine Specific [place] 1.017 (1.001-1.035) Urine Protein 1+ (Negative) H Urine Ketones Negative (Negative) Urine Blood 2+ /uL (Negative) H Urine Nitrite Negative (Negative) Urine Bilirubin Negative (Negative) Urine Urobilinogen Normal mg/dL (Negative) Urine Leukocyte Esterase Negative /uL (Negative) Urine RBC 33 /hpf (0 - 3) Urine Microscopic WBC 6 /HPF (0-3) H Urine Squamous Epithelial Cells Few /hpf (<5) Urine Bacteria None seen /hpf (None Seen) Urine Osmolality 518 mOsm/kg Urine Creatinine 104.97 mg/dL (30.0-125.0) Urine Protein/Creatinine Ratio 1.03 Urine Sodium 21 mmol/L (40-220) L Urine Glucose Normal mg/dL (Normal) Urine Total Protein 108.6 mg/dL (1-14) H Microbiology Microbiology Date/Time Source Procedure Growth Status 11/23/24 09:12 Blood Blood Culture - Final NO GROWTH AFTER 5 DAYS OF INCUBATION. Complete 11/20/24 04:00 Nose MRSA Screen - Final Complete 11/19/24 09:42 Sputum Expectorated Sputum Gram Stain - Final Complete 11/19/24 09:42 Respiratory Culture - Final Streptococcus Group B Complete Labs and/or images reviewed: Labs reviewed by me, Image(s) reviewed by me Assessment/Plan Assessment/Plan Impression: -S/P cardiopulmonary arrest -Acute Hypoxic Respiratory Failure -Acute Decompensated Heart Failure -Hyperkalemia -Acute Kidney Injury/ VMN -Cardiogenic shock -Hx of Amphetamine use -NSTEMI type II -aspiration pneumonia -acute delirium Plan: Events: Pt. Bradycardic overnight. -electrolyte replete -O2 supplementation to keep saturation greater than 92% -change Lasix to 40 mg IV b.i.d. -Continue Plavix and asa -Hold beta arnie secondary to bradycaria. Start entresto -cardiology consultation: Recommendations reviewed -Nephrology consult: Recommendations reviewed -PUD/DVT prophylaxis -repeat labs in a.m. -Social service consult: assist with insurance enrollment. Total time spent with patient discussing and formulating plan of care: 45 minutes. This does not include time spent performing procedures. This medical document was created using an electronic medical record system with [employer] dictation system. Although this document has been carefully reviewed, there may still be some phonetic and typographical errors. These areas are purely typographical due to imperfections of the software programs, and do not reflect any compromise in the patient's medical care. Plan discussed with: Patient, Other (RN) My Orders Orders - AURELIO ZAMARRIPA METALWORKER Procedure Category Date Status Time Pantoprazole Tablet PHA 12/03/24 In Process (Protonix Tablet) 06:00 Clopidogrel Bisulfate PHA 12/03/24 In Process (Plavix) 10:00 Aspirin Tablet PHA 12/02/24 In Process 10:00 Nicotine 21mg/24hr PHA 12/03/24 In Process (Nicoderm 21mg/24hr) 10:00 Sacubitril-Valsartan PHA 12/03/24 Logged (Entresto 24-26 Mg 10:00 Potassium Effervesent PHA 12/03/24 Logged Tab (Klor-Con/Ef) 10:00 * Technical Architect CONS 12/03/24 Transmitted Consult Cardiac DIET 12/03/24 Transmitted Diet-2gna,Lofat,Lochol Breakfast Transfer Orders XFER 12/03/24 Transmitted 09:09 Date of Service: Dec 03, 2024 Billing Provider: AURELIO ZAMARRIPA NP Common Visit Codes: [id number] INP/OBS CARE(HIGH) AURELIO ZAMARRIPA NP Dec 03, 2024 09:17
[2024-12-03] MEDS: SACUBITRIL-VALSARTAN 24mg/26mg TAB PO SCH (09:50)
[2024-12-03] MEDS: POTASSIUM EFFERVESENT TAB 25 MEQ PO SCH (09:51)
[2024-12-03] MEDS: CLOPIDOGREL BISULFATE 75 MG TAB PO SCH (09:51)
[2024-12-03] MEDS: NICOTINE 21MG/24 HR TOPICAL PATCH TD SCH (09:56)
--- NOTE | 2024-12-03 21:31 | DVHPN2 ---
Progress Note - Dictate Date Seen: Dec 03, 2024 Medical Necessity Reason Pt with a Central, PICC or Fol: No Subjective Patient was seen and evaluated in follow up in the ICU. Patient is more awake and alert today. Patient is on 4 LPM NC. K 3.3, CO2 32, AST 66, ALT 85. Chest x-ray shows unchanged cardiomegaly and pulmonary vascular congestion. vital signs Vital Sign Date Time Temp Pulse Resp B/P (MAP) Pulse Ox O2 Delivery O2 Flow Rate FiO2 12/03/24 13:00 82 22 102/66 (78) 96 12/03/24 12:00 Nasal Cannula* 4 36 12/03/24 11:45 99.6 99.6 Total Intake and Output 12/02/24 12/02/24 12/03/24 15:00 23:00 07:00 Intake Total 100 ml 1420 ml 820 ml Output Total 1600 ml 1801 ml Balance 100 ml -180 ml -981 ml medications Current Medications Medications Dose Ordered Sig/Dona Route Start Time Stop Time Status Last Admin Dose Admin Ondansetron HCl 4 mg Q4HP PRN IV 11/19/24 08:45 Docusate Sodium 100 mg BIDPRN PRN PO 11/19/24 08:45 Acetaminophen 650 mg Q6HP PRN PO 11/19/24 08:45 11/28/24 14:14 650 MG Nitroglycerin 0.4 mg Q5MINP PRN SL 11/19/24 08:45 Sodium Chloride 10 ml QSHIFT@10,22 IV 11/25/24 22:00 12/03/24 09:49 10 ML Bisacodyl 10 mg DAILYP PRN [place] 12/01/24 07:30 Morphine Sulfate 1 mg Q3HP PRN IV 11/30/24 14:15 11/30/24 14:29 1 MG Furosemide 40 mg BIDD IV 12/01/24 08:30 12/03/24 06:49 40 MG Empaglifozin 10 mg DAILY PO 12/02/24 10:00 12/03/24 09:50 10 MG Pantoprazole Sodium 40 mg DAILY@0600 PO 12/03/24 06:00 12/03/24 06:49 40 MG Clopidogrel Bisulfate 75 mg DAILY PO 12/03/24 10:00 12/03/24 09:51 75 MG Aspirin 81 mg DAILY PO 12/02/24 10:00 12/03/24 09:49 81 MG Nicotine 1 patch DAILY TD 12/03/24 10:00 12/03/24 09:56 1 PATCH Sacubitril/ Valsartan 0.5 tab BID PO 12/03/24 10:00 12/03/24 09:50 0.5 TAB Potassium Bicarbonate 25 meq DAILY PO 12/03/24 10:00 12/03/24 09:51 25 MEQ objective GENERAL: Alert and oriented x 3. No acute distress. EYES: PERRL, EOMI. Anicteric. HENT: Moist mucous membranes. LUNGS: Decreased breath sounds. CARDIOVASCULAR: Regular rate and rhythm. ABDOMEN: Soft, nontender and nondistended. EXTREMITIES: No edema. NEUROLOGIC: No focal neurological deficits. SKIN: Warm, dry. laboratory and microbiology Laboratory Tests 12/03/24 01:08 Test 12/03/24 01:08 Range/Units Serum Glucose 99 74-106 mg/dL Problem List Cardiopulmonary arrest status post CPR with ROSC. Mixed shock, cardiogenic versus septic. De Ginger, decompensated HFrEF, NYHA class IV. NSTEMI, with severe coronary artery disease. Moderate tricuspid valve regurgitation. Acute hypoxic respiratory failure. Acute kidney injury. Bacteremia. Hyperkalemia, resolved. Shock liver. History of methamphetamine use. Assessment/Plan Continued all current supportive medical care. Nitro SL. Entresto. Aspirin, Plavix. GI prophylactics. Diuretics with Lasix. Morphine for pain management. Additional plan as per the hospital course. Critical care time of 45 minutes provided to include time spent evaluation of patient at bedside, when appropriate patient/family education for diagnosis, treatment plan, review of pertinent medical information and discussion of care with specialty providers and PCP. Dietary Evaluation Review Comments: Nutrition Recommendation: 1) TF Jevity 1.2Cal @ 70ml/hr x 24hr (goal rate) along with Pro-stat 1 pk daily. Start @ 20ml/hr, increase 10ml/hr Q4H until goal is reached. TF @ goal volume along with Pro-stat & Propofol provide 2116 kcal (100% energy needs), 108 gm protein (100% protein needs), 1356 ml free water. 2) Water flush 190 ml Q6H if allowed, adjust PRN 3) TPN if NPO >7 days 4) Monitor NPO status, lab values, wt trend, I/O Expected Outcomes/Goals: To meet >75% estimated needs Lab values to improve Fu 2-3 days Plan discussed with: Patient SULAIMAN MALLOY MD Dec 03, 2024 13:47
--- NOTE | 2024-12-03 23:34 | DVHPN2 ---
[facility] DOS: 12/03/2024 Patient seen and examined at bedside. Remains on supplemental oxygen. Overnight events reviewed. HPI: A 69-year-old man with PMHx of hypertension and methamphetamine abuse who came to the ER on 11/19/24 for evaluation of shortness of breath. Per ER documentation, patient presented with complaints of shortness of breath x 1 week. While in the ER he was given a breathing treatment and placed on oxygen. He continued to have shortness of breath, increased work of breathing, and anxiety. He was placed on BiPAP, not tolerating due to anxiety. He subsequently had a cardiac arrest while in the ER, achieved ROSC and patient was intubated and placed on mechanical ventilator. He was admitted for further care. Pulmonary consultation is requested for evaluation and management d/t acute hypoxic respiratory failure requiring mechanical ventilator Past Medical History: Hypertension, methamphetamine abuse (per ER records). Past Surgical History: Unable to obtain Medications: Reviewed. Allergies: No known drug allergies. Family History: No family history of premature CAD. No family history of lung disorders. Social History: Nonsmoker. No alcohol use. Hx of methamphetamine abuse. Reviewed: Care Plan, H&P, Labs, Medications Changes from previous H/P or p: No Changes General: Per HPI Objective Vitals Vital Signs Date Time Temp Pulse Resp B/P (MAP) Pulse Ox O2 Delivery O2 Flow Rate FiO2 12/03/24 21:00 97.9 77 16 112/76 (88) 99 97.9 12/03/24 16:00 Nasal Cannula* 4 36 Intake/Output Intake and Output 12/03/24 07:00 Intake Total 2340 ml Output Total 3401 ml Balance -1061 ml Intake Oral 1940 ml IV Total 400 ml Output Urine Total 3400 ml Stool Total 1 ml # Bowel Movements 2 General Appearance: Alert, Oriented X3, Cooperative, No acute distress HEENT: Atraumatic, PERRLA Lungs: Clear to auscultation, Other (Decreased air entry bilaterally) Cardiovascular: Normal S1, Normal S2, Other (Sinus bradycardia) Abdomen: Normal bowel sounds, Soft, No tenderness Genitourinary: No Apparent Abnormalities (Mayo catheter) Musculoskeletal: Normal sensory function, Normal motor function Neuro: Strength at 5/5 X4 ext, Cranial nerves 3-12 NL Skin: Dry, Intact Psych/Mental Status: Mental status NL, Mood NL Medications Current Medications Medications Dose Ordered Sig/Dona Route Start Time Stop Time Status Last Admin Dose Admin Ondansetron HCl 4 mg Q4HP PRN IV 11/19/24 08:45 Docusate Sodium 100 mg BIDPRN PRN PO 11/19/24 08:45 Acetaminophen 650 mg Q6HP PRN PO 11/19/24 08:45 11/28/24 14:14 650 MG Nitroglycerin 0.4 mg Q5MINP PRN SL 11/19/24 08:45 Sodium Chloride 10 ml QSHIFT@ IV 11/25/24 22:00 12/03/24 21:42 10 ML Bisacodyl 10 mg DAILYP PRN TN 12/01/24 07:30 Morphine Sulfate 1 mg Q3HP PRN IV 11/30/24 14:15 11/30/24 14:29 1 MG Furosemide 40 mg BIDD IV 12/01/24 08:30 12/03/24 17:21 40 MG Empaglifozin 10 mg DAILY PO 12/02/24 10:00 12/03/24 09:50 10 MG Pantoprazole Sodium 40 mg DAILY@0600 PO 12/03/24 06:00 12/03/24 06:49 40 MG Clopidogrel Bisulfate 75 mg DAILY PO 12/03/24 10:00 12/03/24 09:51 75 MG Aspirin 81 mg DAILY PO 12/02/24 10:00 12/03/24 09:49 81 MG Nicotine 1 patch DAILY TD 12/03/24 10:00 12/03/24 09:56 1 PATCH Sacubitril/ Valsartan 0.5 tab BID PO 12/03/24 10:00 12/03/24 21:42 0.5 TAB Potassium Bicarbonate 25 meq DAILY PO 12/03/24 10:00 12/03/24 09:51 25 MEQ Laboratory Results Laboratory Tests 12/03/24 01:08 Chemistry Test 12/03/24 01:08 Albumin 3.6 g/dL (3.2-4.8) Calcium Level 9.0 mg/dL (8.7-10.4) Magnesium Level 2.0 mg/dL (1.6-2.6) Phosphorus Level 3.3 mg/dL (2.4-5.1) Total Protein 6.5 g/dL (5.7-8.2) LFT Test 12/03/24 01:08 Alanine Aminotransferase (ALT) 85 U/L (7-40) H Alkaline Phosphatase 74 U/L (46-116) Aspartate Amino Transferase (AST) 66 U/L (13-40) H Total Bilirubin 0.9 mg/dL (0.2-1.0) Urinalysis Test 11/19/24 08:35 Urine Color Yellow (Yellow) Urine Clarity Clear (Clear) Urine pH 5.5 (5.0-9.0) Urine Specific [place] 1.017 (1.001-1.035) Urine Protein 1+ (Negative) H Urine Ketones Negative (Negative) Urine Blood 2+ /uL (Negative) H Urine Nitrite Negative (Negative) Urine Bilirubin Negative (Negative) Urine Urobilinogen Normal mg/dL (Negative) Urine Leukocyte Esterase Negative /uL (Negative) Urine RBC 33 /hpf (0 - 3) Urine Microscopic WBC 6 /HPF (0-3) H Urine Squamous Epithelial Cells Few /hpf (<5) Urine Bacteria None seen /hpf (None Seen) Urine Osmolality 518 mOsm/kg Urine Creatinine 104.97 mg/dL (30.0-125.0) Urine Protein/Creatinine Ratio 1.03 Urine Sodium 21 mmol/L (40-220) L Urine Glucose Normal mg/dL (Normal) Urine Total Protein 108.6 mg/dL (1-14) H Microbiology Microbiology Date/Time Source Procedure Growth Status 11/23/24 09:12 Blood Blood Culture - Final NO GROWTH AFTER 5 DAYS OF INCUBATION. Complete 11/20/24 04:00 Nose MRSA Screen - Final Complete 11/19/24 09:42 Sputum Expectorated Sputum Gram Stain - Final Complete 11/19/24 09:42 Respiratory Culture - Final Streptococcus Group B Complete Assessment/Plan Assessment/Plan Impression: Acute hypoxic respiratory failure Chronic hypercarbic respiratory failure, PaCO2 63 mmHg. Dependence on supplemental oxygen Hyperkalemia Acute decompensated Heart Failure Acute kidney Injury Methamphetamine use Marijuana use Aspiration Hepatitis C Events: Remains on supplemental oxygen On 4 LPM NC Taper O2 as tolerated Chest x-ray reveals pulmonary vascular congestion. No pleural effusion or pneumothorax. Swallow evaluation Head of bed elevation Aspiration precautions Off pressors, hemodynamically stable. Monitor closely d/t high risk of aspiration Continue bronchodilators Continue antibiotics Diurese with Lasix as tolerated Monitor renal function Monitor electrolytes. Supplement as necessary. Potassium supplementation Protonix for GI ppx NRT. Labs and imaging reviewed. Rest of plan as noted below. Plan: s/p extubation on 11/30/24 Continue supplemental oxygen Titrate to keep O2 saturation above 92%. Taper O2 as tolerated Pressors if necessary for hemodynamic support. Titrate to keep MAP above 65 mmHg/SBP above 90 mmHg. Continue antibiotics. F/u cultures. Bronchodilators Monitor renal function due to acute kidney injury. Diurese to euvolemia Monitor electrolytes. Supplement as necessary. Hypokalemia, supplement Nutritional support. Accucheks, ISS. GI/DVT prophylaxis. Prognosis: Poor given multiple comorbidities. Rest of plan per hospitalist and other consultants. Thank you for allowing me to participate in this patient's care. Further recommendations will depend on patient's clinical course. Please do not hesitate to contact me if you have any questions or concerns. This medical document was created using an electronic medical record system with [employer] dictation system. Although this document has been carefully reviewed, there may still be some phonetic and typographical errors. These areas are purely typographical due to imperfections of the software programs, and do not reflect any compromise in the patient's medical care. Plan discussed with: Patient, Other (RN Sarah) Date of Service: Dec 03, 2024 Billing Provider: JHONY GARIBAY MD Common Visit Codes: [id number] INP/OBS CARE(HIGH) JHONY GARIBAY MD Dec 03, 2024 23:34
[2024-12-04] VITALS (8 sets, daily range): BP systolic 89–120; BP diastolic 61–81; PULSE 77–110; RESP 16–19; TEMP 97.7–98.3; O2SAT 97–100
[2024-12-04 10:31] LABS: Anion Gap 15 (5-15); Calcium 9.0 mg/dL (8.7-10.4)
[2024-12-04 10:36] LABS: BUN/Creatinine Ratio 11.1 (10.0-20.0); Blood Urea Nitrogen 10 mg/dL (9-23)
[2024-12-04 10:37] LABS: Magnesium 2.0 mg/dL (1.6-2.6)
[2024-12-04 11:00] LABS: Carbon Dioxide 22 mmol/L (20-31); Chloride 97 mmol/L (98-107); Potassium 3.8 mmol/L (3.5-5.1); Sodium 134 mmol/L (136-145)
[2024-12-04 11:01] LABS: Glucose 136 mg/dL (74-106)
--- NOTE | 2024-12-04 14:49 | DVHPN2 ---
Subjective Patient more alert. Denies any symptoms. Reviewed: Care Plan, H&P, Labs, Medications Changes from previous H/P or p: No Changes General: Per HPI Objective Vitals Vital Signs Date Time Temp Pulse Resp B/P (MAP) Pulse Ox O2 Delivery O2 Flow Rate FiO2 12/04/24 13:00 97.8 105 18 105/61 (76) 97 97.8 12/04/24 08:00 Nasal Cannula* 4 36 Intake/Output Intake and Output 12/04/24 07:00 Intake Total 2170 ml Output Total 2451 ml Balance -281 ml Intake Oral 2170 ml Output Urine Total 2450 ml Stool Total 1 ml # Bowel Movements 1 General Appearance: Alert, Oriented X3, Cooperative, No acute distress HEENT: Atraumatic, PERRLA Lungs: Clear to auscultation, Other (Decreased air entry bilaterally) Cardiovascular: Normal S1, Normal S2, Other (Sinus bradycardia) Abdomen: Normal bowel sounds, Soft, No tenderness Genitourinary: No Apparent Abnormalities (Mayo catheter) Musculoskeletal: Normal sensory function, Normal motor function Neuro: Strength at 5/5 X4 ext, Cranial nerves 3-12 NL Skin: Dry, Intact Psych/Mental Status: Mental status NL, Mood NL Medications Current Medications Medications Dose Ordered Sig/Dona Route Start Time Stop Time Status Last Admin Dose Admin Ondansetron HCl 4 mg Q4HP PRN IV 11/19/24 08:45 Docusate Sodium 100 mg BIDPRN PRN PO 11/19/24 08:45 Acetaminophen 650 mg Q6HP PRN PO 11/19/24 08:45 11/28/24 14:14 650 MG Nitroglycerin 0.4 mg Q5MINP PRN SL 11/19/24 08:45 Sodium Chloride 10 ml QSHIFT@ IV 11/25/24 22:00 12/04/24 10:49 10 ML Bisacodyl 10 mg DAILYP PRN MO 12/01/24 07:30 Morphine Sulfate 1 mg Q3HP PRN IV 11/30/24 14:15 11/30/24 14:29 1 MG Empaglifozin 10 mg DAILY PO 12/02/24 10:00 12/04/24 10:50 10 MG Pantoprazole Sodium 40 mg DAILY@0600 PO 12/03/24 06:00 12/04/24 05:51 40 MG Clopidogrel Bisulfate 75 mg DAILY PO 12/03/24 10:00 12/04/24 10:49 75 MG Aspirin 81 mg DAILY PO 12/02/24 10:00 12/04/24 10:49 81 MG Nicotine 1 patch DAILY TD 12/03/24 10:00 12/04/24 11:07 1 PATCH Sacubitril/ Valsartan 0.5 tab BID PO 12/03/24 10:00 12/04/24 10:51 0.5 TAB Potassium Bicarbonate 25 meq DAILY PO 12/03/24 10:00 12/04/24 10:50 25 MEQ Furosemide 40 mg DAILY IV 12/05/24 06:00 UNV Laboratory Results Laboratory Tests 12/03/24 01:08 12/04/24 09:09 Chemistry Test 12/04/24 09:09 Calcium Level 9.0 mg/dL (8.7-10.4) Magnesium Level 2.0 mg/dL (1.6-2.6) Urinalysis Test 11/19/24 08:35 Urine Color Yellow (Yellow) Urine Clarity Clear (Clear) Urine pH 5.5 (5.0-9.0) Urine Specific [place] 1.017 (1.001-1.035) Urine Protein 1+ (Negative) H Urine Ketones Negative (Negative) Urine Blood 2+ /uL (Negative) H Urine Nitrite Negative (Negative) Urine Bilirubin Negative (Negative) Urine Urobilinogen Normal mg/dL (Negative) Urine Leukocyte Esterase Negative /uL (Negative) Urine RBC 33 /hpf (0 - 3) Urine Microscopic WBC 6 /HPF (0-3) H Urine Squamous Epithelial Cells Few /hpf (<5) Urine Bacteria None seen /hpf (None Seen) Urine Osmolality 518 mOsm/kg Urine Creatinine 104.97 mg/dL (30.0-125.0) Urine Protein/Creatinine Ratio 1.03 Urine Sodium 21 mmol/L (40-220) L Urine Glucose Normal mg/dL (Normal) Urine Total Protein 108.6 mg/dL (1-14) H Microbiology Microbiology Date/Time Source Procedure Growth Status 11/23/24 09:12 Blood Blood Culture - Final NO GROWTH AFTER 5 DAYS OF INCUBATION. Complete 11/20/24 04:00 Nose MRSA Screen - Final Complete 11/19/24 09:42 Sputum Expectorated Sputum Gram Stain - Final Complete 11/19/24 09:42 Respiratory Culture - Final Streptococcus Group B Complete Labs and/or images reviewed: Labs reviewed by me, Image(s) reviewed by me Assessment/Plan Assessment/Plan Impression: -S/P cardiopulmonary arrest -Acute Hypoxic Respiratory Failure -Acute Decompensated Heart Failure -Hyperkalemia -Acute Kidney Injury/ VMN -Cardiogenic shock -Hx of Amphetamine use -NSTEMI type II -aspiration pneumonia -acute delirium Plan: Events: Discussed plan of care with the patient which includes dobutamine stress test to assess myocardium by ability. -electrolyte replete -O2 supplementation to keep saturation greater than 92% -change Lasix to 40 mg IV b.i.d. -Continue Plavix and asa -continue Entresto, Jardiance, decrease Lasix to daily -cardiology consultation: Recommendations reviewed -Nephrology consult: Recommendations reviewed -PUD/DVT prophylaxis -repeat labs in a.m. Total time spent with patient discussing and formulating plan of care: 45 minutes. This does not include time spent performing procedures. This medical document was created using an electronic medical record system with [employer] dictation system. Although this document has been carefully reviewed, there may still be some phonetic and typographical errors. These areas are purely typographical due to imperfections of the software programs, and do not reflect any compromise in the patient's medical care. Plan discussed with: Patient, Other (RN) My Orders Orders - AURELIO ZAMARRIPA NP Procedure Category Date Status Time * Cardiology Consult CONS 12/04/24 Transmitted 08:33 Furosemide Injection PHA 12/05/24 Logged (Lasix Injection) 06:00 Date of Service: Dec 04, 2024 Billing Provider: AURELIO ZAMARRIPA NP Common Visit Codes: [id number] INP/OBS CARE(HIGH) AURELIO ZAMARRIPA NP Dec 04, 2024 14:49
--- NOTE | 2024-12-04 23:34 | DVHPN2 ---
[facility] DOS: 12/04/2024 Patient seen and examined at bedside. Remains on supplemental oxygen. Overnight events reviewed. HPI: A 69-year-old man with PMHx of hypertension and methamphetamine abuse who came to the ER on 11/19/24 for evaluation of shortness of breath. Per ER documentation, patient presented with complaints of shortness of breath x 1 week. While in the ER he was given a breathing treatment and placed on oxygen. He continued to have shortness of breath, increased work of breathing, and anxiety. He was placed on BiPAP, not tolerating due to anxiety. He subsequently had a cardiac arrest while in the ER, achieved ROSC and patient was intubated and placed on mechanical ventilator. He was admitted for further care. Pulmonary consultation is requested for evaluation and management d/t acute hypoxic respiratory failure requiring mechanical ventilator Past Medical History: Hypertension, methamphetamine abuse (per ER records). Past Surgical History: Unable to obtain Medications: Reviewed. Allergies: No known drug allergies. Family History: No family history of premature CAD. No family history of lung disorders. Social History: Nonsmoker. No alcohol use. Hx of methamphetamine abuse. Reviewed: Care Plan, H&P, Labs, Medications Changes from previous H/P or p: No Changes General: Per HPI Objective Vitals Vital Signs Date Time Temp Pulse Resp B/P (MAP) Pulse Ox O2 Delivery O2 Flow Rate FiO2 12/04/24 20:08 98.3 98 18 120/72 (88) 99 98.3 12/04/24 08:00 Nasal Cannula* 4 36 Intake/Output Intake and Output 12/04/24 07:00 Intake Total 2170 ml Output Total 2451 ml Balance -281 ml Intake Oral 2170 ml Output Urine Total 2450 ml Stool Total 1 ml # Bowel Movements 1 General Appearance: Alert, Oriented X3, Cooperative, No acute distress HEENT: Atraumatic, PERRLA Lungs: Clear to auscultation, Other (Decreased air entry bilaterally) Cardiovascular: Normal S1, Normal S2, Other (Sinus bradycardia) Abdomen: Normal bowel sounds, Soft, No tenderness Genitourinary: No Apparent Abnormalities (Mayo catheter) Musculoskeletal: Normal sensory function, Normal motor function Neuro: Strength at 5/5 X4 ext, Cranial nerves 3-12 NL Skin: Dry, Intact Psych/Mental Status: Mental status NL, Mood NL Medications Current Medications Medications Dose Ordered Sig/Dona Route Start Time Stop Time Status Last Admin Dose Admin Ondansetron HCl 4 mg Q4HP PRN IV 11/19/24 08:45 Docusate Sodium 100 mg BIDPRN PRN PO 11/19/24 08:45 Acetaminophen 650 mg Q6HP PRN PO 11/19/24 08:45 11/28/24 14:14 650 MG Nitroglycerin 0.4 mg Q5MINP PRN SL 11/19/24 08:45 Sodium Chloride 10 ml QSHIFT@ IV 11/25/24 22:00 12/04/24 21:39 10 ML Bisacodyl 10 mg DAILYP PRN [place] 12/01/24 07:30 Morphine Sulfate 1 mg Q3HP PRN IV 11/30/24 14:15 11/30/24 14:29 1 MG Empaglifozin 10 mg DAILY PO 12/02/24 10:00 12/04/24 10:50 10 MG Pantoprazole Sodium 40 mg DAILY@0600 PO 12/03/24 06:00 12/04/24 05:51 40 MG Clopidogrel Bisulfate 75 mg DAILY PO 12/03/24 10:00 12/04/24 10:49 75 MG Aspirin 81 mg DAILY PO 12/02/24 10:00 12/04/24 10:49 81 MG Nicotine 1 patch DAILY TD 12/03/24 10:00 12/04/24 11:07 1 PATCH Sacubitril/ Valsartan 0.5 tab BID PO 12/03/24 10:00 12/04/24 21:39 0.5 TAB Potassium Bicarbonate 25 meq DAILY PO 12/03/24 10:00 12/04/24 10:50 25 MEQ Furosemide 40 mg DAILY IV 12/05/24 06:00 Laboratory Results Laboratory Tests 12/03/24 01:08 12/04/24 09:09 Chemistry Test 12/04/24 09:09 Calcium Level 9.0 mg/dL (8.7-10.4) Magnesium Level 2.0 mg/dL (1.6-2.6) Urinalysis Test 11/19/24 08:35 Urine Color Yellow (Yellow) Urine Clarity Clear (Clear) Urine pH 5.5 (5.0-9.0) Urine Specific [place] 1.017 (1.001-1.035) Urine Protein 1+ (Negative) H Urine Ketones Negative (Negative) Urine Blood 2+ /uL (Negative) H Urine Nitrite Negative (Negative) Urine Bilirubin Negative (Negative) Urine Urobilinogen Normal mg/dL (Negative) Urine Leukocyte Esterase Negative /uL (Negative) Urine RBC 33 /hpf (0 - 3) Urine Microscopic WBC 6 /HPF (0-3) H Urine Squamous Epithelial Cells Few /hpf (<5) Urine Bacteria None seen /hpf (None Seen) Urine Osmolality 518 mOsm/kg Urine Creatinine 104.97 mg/dL (30.0-125.0) Urine Protein/Creatinine Ratio 1.03 Urine Sodium 21 mmol/L (40-220) L Urine Glucose Normal mg/dL (Normal) Urine Total Protein 108.6 mg/dL (1-14) H Microbiology Microbiology Date/Time Source Procedure Growth Status 11/23/24 09:12 Blood Blood Culture - Final NO GROWTH AFTER 5 DAYS OF INCUBATION. Complete 11/20/24 04:00 Nose MRSA Screen - Final Complete 11/19/24 09:42 Sputum Expectorated Sputum Gram Stain - Final Complete 11/19/24 09:42 Respiratory Culture - Final Streptococcus Group B Complete Assessment/Plan Assessment/Plan Impression: Acute hypoxic respiratory failure Chronic hypercarbic respiratory failure, PaCO2 63 mmHg. Dependence on supplemental oxygen Hyperkalemia Acute decompensated Heart Failure Acute kidney Injury Methamphetamine use Marijuana use Aspiration Hepatitis C Events: Remains on supplemental oxygen On 4 LPM NC Taper O2 as tolerated Chest x-ray on 12/03/24 revealed pulmonary vascular congestion. No pleural effusion or pneumothorax. Swallow evaluation Head of bed elevation Aspiration precautions Off pressors, hemodynamically stable. Monitor closely d/t high risk of aspiration Bronchodilators PRN Incentive spirometry On Plavix Entresto Maintain euvolemia with Lasix q. daily Monitor renal function Monitor electrolytes. Supplement as necessary. Potassium supplementation Protonix for GI ppx Continue NRT. Labs and imaging reviewed. Rest of plan as noted below. Plan: s/p extubation on 11/30/24 Continue supplemental oxygen Titrate to keep O2 saturation above 92%. Taper O2 as tolerated Pressors if necessary for hemodynamic support. Titrate to keep MAP above 65 mmHg/SBP above 90 mmHg. Continue antibiotics. F/u cultures. Bronchodilators Monitor renal function due to acute kidney injury. Diurese to euvolemia Monitor electrolytes. Supplement as necessary. Hypokalemia, supplement Nutritional support. Accucheks, ISS. GI/DVT prophylaxis. Prognosis: Poor given multiple comorbidities. Rest of plan per hospitalist and other consultants. Thank you for allowing me to participate in this patient's care. Further recommendations will depend on patient's clinical course. Please do not hesitate to contact me if you have any questions or concerns. This medical document was created using an electronic medical record system with [employer] dictation system. Although this document has been carefully reviewed, there may still be some phonetic and typographical errors. These areas are purely typographical due to imperfections of the software programs, and do not reflect any compromise in the patient's medical care. Plan discussed with: Patient, Other (RN Carmen) Date of Service: Dec 04, 2024 Billing Provider: JHONY GARIBAY MD Common Visit Codes: [id number] INP/OBS CARE(HIGH) JHONY GARIBAY MD Dec 04, 2024 23:34
--- NOTE | 2024-12-04 23:51 | DVHPN2 ---
Progress Note - Dictate Date Seen: Dec 04, 2024 Medical Necessity Reason Pt with a Central, PICC or Fol: No Subjective Patient was seen and evaluated in follow up. Patient was downgraded to telemetry. Patient is confused/agitated. Telemetry reviewed. vital signs Vital Sign Date Time Temp Pulse Resp B/P (MAP) Pulse Ox O2 Delivery O2 Flow Rate FiO2 12/04/24 09:00 98.2 103 19 89/67 (74) 100 98.2 12/04/24 08:00 Nasal Cannula* 4 36 Total Intake and Output 12/03/24 12/03/24 12/04/24 15:00 23:00 07:00 Intake Total 720 ml 1450 ml Output Total 1601 ml 850 ml Balance -881 ml 600 ml medications Current Medications Medications Dose Ordered Sig/Dona Route Start Time Stop Time Status Last Admin Dose Admin Ondansetron HCl 4 mg Q4HP PRN IV 11/19/24 08:45 Docusate Sodium 100 mg BIDPRN PRN PO 11/19/24 08:45 Acetaminophen 650 mg Q6HP PRN PO 11/19/24 08:45 11/28/24 14:14 650 MG Nitroglycerin 0.4 mg Q5MINP PRN SL 11/19/24 08:45 Sodium Chloride 10 ml QSHIFT@ IV 11/25/24 22:00 12/04/24 10:49 10 ML Bisacodyl 10 mg DAILYP PRN AL 12/01/24 07:30 Morphine Sulfate 1 mg Q3HP PRN IV 11/30/24 14:15 11/30/24 14:29 1 MG Furosemide 40 mg BIDD IV 12/01/24 08:30 12/04/24 05:57 40 MG Empaglifozin 10 mg DAILY PO 12/02/24 10:00 12/04/24 10:50 10 MG Pantoprazole Sodium 40 mg DAILY@0600 PO 12/03/24 06:00 12/04/24 05:51 40 MG Clopidogrel Bisulfate 75 mg DAILY PO 12/03/24 10:00 12/04/24 10:49 75 MG Aspirin 81 mg DAILY PO 12/02/24 10:00 12/04/24 10:49 81 MG Nicotine 1 patch DAILY TD 12/03/24 10:00 12/04/24 11:07 1 PATCH Sacubitril/ Valsartan 0.5 tab BID PO 12/03/24 10:00 12/04/24 10:51 0.5 TAB Potassium Bicarbonate 25 meq DAILY PO 12/03/24 10:00 12/04/24 10:50 25 MEQ objective GENERAL: Alert and oriented x 3. No acute distress. EYES: PERRL, EOMI. Anicteric. HENT: Moist mucous membranes. LUNGS: Decreased breath sounds. CARDIOVASCULAR: Regular rate and rhythm. ABDOMEN: Soft, nontender and nondistended. EXTREMITIES: No edema. NEUROLOGIC: No focal neurological deficits. SKIN: Warm, dry. laboratory and microbiology Laboratory Tests 12/04/24 09:09 12/03/24 01:08 Test 12/04/24 09:09 Range/Units Serum Glucose 136 H 74-106 mg/dL Problem List Cardiopulmonary arrest status post CPR with ROSC. Mixed shock, cardiogenic versus septic. [place], decompensated HFrEF, NYHA class IV. NSTEMI, with severe coronary artery disease. Moderate tricuspid valve regurgitation. Acute hypoxic respiratory failure. Acute kidney injury. Bacteremia. Hyperkalemia, resolved. Shock liver. History of methamphetamine use. Assessment/Plan Continued all current supportive medical care. Nitro SL. Entresto. Aspirin, Plavix. GI prophylactics. Diuretics with Lasix. Additional plan as per the hospital course. Dietary Evaluation Review Comments: Nutrition Recommendation: 1) TF Jevity 1.2Cal @ 70ml/hr x 24hr (goal rate) along with Pro-stat 1 pk daily. Start @ 20ml/hr, increase 10ml/hr Q4H until goal is reached. TF @ goal volume along with Pro-stat & Propofol provide 2116 kcal (100% energy needs), 108 gm protein (100% protein needs), 1356 ml free water. 2) Water flush 190 ml Q6H if allowed, adjust PRN 3) TPN if NPO >7 days 4) Monitor NPO status, lab values, wt trend, I/O Expected Outcomes/Goals: To meet >75% estimated needs Lab values to improve Fu 2-3 days Plan discussed with: SULAIMAN Buckley MD Dec 04, 2024 12:32
[2024-12-05] VITALS (7 sets, daily range): BP systolic 110–127; BP diastolic 55–91; PULSE 18–99; RESP 16–18; TEMP 97.5–98.3; O2SAT 94–100
[2024-12-05] MEDS: FUROSEMIDE 40 MG/4 ML VIAL IV SCH (06:00)
[2024-12-05] MEDS: DOBUTamine 1000MCG/ML 250 ML IV ONE (12:35)
[2024-12-05] MEDS: ATROPINE SULF 0.5 MG/5ML SYR ONE (12:38)
[2024-12-05] MEDS: DOBUTamine 1000MCG/ML 100 ML IV ONE (13:10)
--- NOTE | 2024-12-05 13:16 | DVHPN2 ---
Subjective Patient more alert. Denies any symptoms. Reviewed: Care Plan, H&P, Labs, Medications Changes from previous H/P or p: No Changes General: Per HPI Objective Vitals Vital Signs Date Time Temp Pulse Resp B/P (MAP) Pulse Ox O2 Delivery O2 Flow Rate FiO2 12/05/24 10:15 127/77 12/05/24 09:00 87 18 100 12/05/24 07:30 Nasal Cannula* 4 36 12/05/24 05:01 98.3 98.3 Intake/Output Intake and Output 12/05/24 07:00 Intake Total 1078 ml Output Total 1400 ml Balance -322 ml Intake Oral 1078 ml Output Urine Total 1400 ml # Bowel Movements 3 General Appearance: Alert, Oriented X3, Cooperative, No acute distress HEENT: Atraumatic, PERRLA Lungs: Clear to auscultation, Other (Decreased air entry bilaterally) Cardiovascular: Normal S1, Normal S2, Other (Sinus bradycardia) Abdomen: Normal bowel sounds, Soft, No tenderness Genitourinary: No Apparent Abnormalities (Mayo catheter) Musculoskeletal: Normal sensory function, Normal motor function Neuro: Strength at 5/5 X4 ext, Cranial nerves 3-12 NL Skin: Dry, Intact Psych/Mental Status: Mental status NL, Mood NL Medications Current Medications Medications Dose Ordered Sig/Dona Route Start Time Stop Time Status Last Admin Dose Admin Ondansetron HCl 4 mg Q4HP PRN IV 11/19/24 08:45 Docusate Sodium 100 mg BIDPRN PRN PO 11/19/24 08:45 Acetaminophen 650 mg Q6HP PRN PO 11/19/24 08:45 11/28/24 14:14 650 MG Nitroglycerin 0.4 mg Q5MINP PRN SL 11/19/24 08:45 Sodium Chloride 10 ml QSHIFT@ IV 11/25/24 22:00 12/05/24 10:14 10 ML Bisacodyl 10 mg DAILYP PRN [place] 12/01/24 07:30 Morphine Sulfate 1 mg Q3HP PRN IV 11/30/24 14:15 11/30/24 14:29 1 MG Empaglifozin 10 mg DAILY PO 12/02/24 10:00 12/05/24 10:13 10 MG Pantoprazole Sodium 40 mg DAILY@0600 PO 12/03/24 06:00 12/04/24 05:51 40 MG Clopidogrel Bisulfate 75 mg DAILY PO 12/03/24 10:00 12/05/24 10:13 75 MG Aspirin 81 mg DAILY PO 12/02/24 10:00 12/05/24 10:13 81 MG Nicotine 1 patch DAILY TD 12/03/24 10:00 12/05/24 10:14 1 PATCH Sacubitril/ Valsartan 0.5 tab BID PO 12/03/24 10:00 12/05/24 10:13 0.5 TAB Potassium Bicarbonate 25 meq DAILY PO 12/03/24 10:00 12/05/24 10:14 25 MEQ Furosemide 40 mg DAILY IV 12/05/24 06:00 12/05/24 10:15 40 MG Laboratory Results Laboratory Tests 12/03/24 01:08 12/04/24 09:09 Urinalysis Test 11/19/24 08:35 Urine Color Yellow (Yellow) Urine Clarity Clear (Clear) Urine pH 5.5 (5.0-9.0) Urine Specific [place] 1.017 (1.001-1.035) Urine Protein 1+ (Negative) H Urine Ketones Negative (Negative) Urine Blood 2+ /uL (Negative) H Urine Nitrite Negative (Negative) Urine Bilirubin Negative (Negative) Urine Urobilinogen Normal mg/dL (Negative) Urine Leukocyte Esterase Negative /uL (Negative) Urine RBC 33 /hpf (0 - 3) Urine Microscopic WBC 6 /HPF (0-3) H Urine Squamous Epithelial Cells Few /hpf (<5) Urine Bacteria None seen /hpf (None Seen) Urine Osmolality 518 mOsm/kg Urine Creatinine 104.97 mg/dL (30.0-125.0) Urine Protein/Creatinine Ratio 1.03 Urine Sodium 21 mmol/L (40-220) L Urine Glucose Normal mg/dL (Normal) Urine Total Protein 108.6 mg/dL (1-14) H Microbiology Microbiology Date/Time Source Procedure Growth Status 11/23/24 09:12 Blood Blood Culture - Final NO GROWTH AFTER 5 DAYS OF INCUBATION. Complete 11/20/24 04:00 Nose MRSA Screen - Final Complete 11/19/24 09:42 Sputum Expectorated Sputum Gram Stain - Final Complete 11/19/24 09:42 Respiratory Culture - Final Streptococcus Group B Complete Labs and/or images reviewed: Labs reviewed by me, Image(s) reviewed by me Assessment/Plan Assessment/Plan Impression: -S/P cardiopulmonary arrest -Acute Hypoxic Respiratory Failure -Acute Decompensated Heart Failure -Hyperkalemia -Acute Kidney Injury/ VMN -Cardiogenic shock -Hx of Amphetamine use -NSTEMI type II -aspiration pneumonia -acute delirium Plan: Events: Patient received dobutamine stress test today. No events overnight. -electrolyte replete -O2 supplementation to keep saturation greater than 92% -change Lasix to 40 mg IV b.i.d. -Continue Plavix and asa -continue Entresto, Jardiance, decrease Lasix to daily -cardiology consultation: Recommendations reviewed -Nephrology consult: Recommendations reviewed -PUD/DVT prophylaxis -repeat labs in a.m. Total time spent with patient discussing and formulating plan of care: 45 minutes. This does not include time spent performing procedures. This medical document was created using an electronic medical record system with [employer] dictation system. Although this document has been carefully reviewed, there may still be some phonetic and typographical errors. These areas are purely typographical due to imperfections of the software programs, and do not reflect any compromise in the patient's medical care. Plan discussed with: Patient, Other (RN) My Orders Orders - AURELIO ZAMARRIPA NP Procedure Category Date Status Time Furosemide Injection PHA 12/05/24 In Process (Lasix Injection) 06:00 Date of Service: Dec 05, 2024 Billing Provider: AURELIO ZAMARRIPA NP Common Visit Codes: [id number] INP/OBS CARE(HIGH) AURELIO ZAMARRIPA NP Dec 05, 2024 13:15
--- NOTE | 2024-12-05 14:13 | DVHOP2 ---
Operative Report - 2 Report Details Date: 12/05/24 Preop Diagnosis: CAD Postop Diagnosis: CAD ischemic cardiomyopathy Surgeon: Janet Beatty MD Anesthesiologist: No anesthesia given Anesthesia: Local (No anesthesia given) Consent: Transesophageal echocardiogram performed with dobutamine administration for the purpose of determining myocardial viability. Complications: No complications Findings: Myocardial viability pertaining to the inferior and lateral wall apical wall and septum Indications for Surgery: Congestive heart failure. Ischemic cardiomyopathy. Name of Procedure Performed Dobutamine echocardiogram Procedure Details Procedure Details: Patient was placed in the semi-Guevara position left lateral decubitus we will obtain transthoracic echocardiogram. Dobutamine in in his titration was initiated at to micro g/kg per minute and progressing to four mg per kg per minute and 10 milligrams/kilograms per minute and 20 mcg/kg per minute at 3 minute intervals. Echocardiographic evaluation was performed. Conclusions: Technically good study sinus rhythm. Biatrial enlargement. LV enlargement. Valves appear to be structurally normal Left ventricular systolic performance is markedly diminished at baseline. EF is approximately 10%. During the administration of 2-10 mcg/kg per minute of dobutamine the patient progressively increased systolic thickening of the lateral apical segment and inferior wall along with proximal septum. The mid and distal septum Ohms were modestly bonita. At 20 mcg/kg per minute there was dyskinesis of the lateral wall apical wall and inferior basal segment. There appears to be notable viability add low-dose dobutamine of the lateral proximal septal and distal lateral inferior wall and anterior wall of the left ventricle. Doppler was not performed. Condition Guarded Disposition Still a Patient Date of Service: Dec 05, 2024 Billing Provider: JANET BEATTY Sr., MD Cardiology Common Codes: [id number] INP/OBS CARE (High) (Dobutamine ec hocardiography for evaluation of myocardial viability.) JANET BEATTY Sr., MD Dec 05, 2024 14:13
--- NOTE | 2024-12-05 20:01 | DVHPN2 ---
Consult Progress Note Date Seen: Dec 05, 2024 Subjective Review of Systems: CVS:Normal, RESPIRATORY:Normal, NEURO:Normal Objective vital signs Vital Sign Date Time Temp Pulse Resp B/P (MAP) Pulse Ox O2 Delivery O2 Flow Rate FiO2 12/05/24 17:00 97.5 90 18 110/55 (73) 100 97.5 12/05/24 07:30 Nasal Cannula* 4 36 Total Intake and Output 12/04/24 12/04/24 12/05/24 15:00 23:00 07:00 Intake Total 358 ml 720 ml 0 ml Output Total 900 ml 500 ml Balance 358 ml -180 ml -500 ml medications Current Medications Medications Dose Ordered Sig/Dona Route Start Time Stop Time Status Last Admin Dose Admin Ondansetron HCl 4 mg Q4HP PRN IV 11/19/24 08:45 Docusate Sodium 100 mg BIDPRN PRN PO 11/19/24 08:45 Acetaminophen 650 mg Q6HP PRN PO 11/19/24 08:45 11/28/24 14:14 650 MG Nitroglycerin 0.4 mg Q5MINP PRN SL 11/19/24 08:45 Sodium Chloride 10 ml QSHIFT@,22 IV 11/25/24 22:00 12/05/24 10:14 10 ML Bisacodyl 10 mg DAILYP PRN [place] 12/01/24 07:30 Morphine Sulfate 1 mg Q3HP PRN IV 11/30/24 14:15 11/30/24 14:29 1 MG Empaglifozin 10 mg DAILY PO 12/02/24 10:00 12/05/24 10:13 10 MG Pantoprazole Sodium 40 mg DAILY@0600 PO 12/03/24 06:00 12/04/24 05:51 40 MG Clopidogrel Bisulfate 75 mg DAILY PO 12/03/24 10:00 12/05/24 10:13 75 MG Aspirin 81 mg DAILY PO 12/02/24 10:00 12/05/24 10:13 81 MG Nicotine 1 patch DAILY TD 12/03/24 10:00 12/05/24 10:14 1 PATCH Sacubitril/ Valsartan 0.5 tab BID PO 12/03/24 10:00 12/05/24 10:13 0.5 TAB Potassium Bicarbonate 25 meq DAILY PO 12/03/24 10:00 12/05/24 10:14 25 MEQ Furosemide 40 mg DAILY IV 12/05/24 06:00 12/05/24 10:15 40 MG Examination: LUNGS:Normal, CVS:Normal, NEURO:Normal laboratory and microbiology Laboratory Tests 12/04/24 09:09 12/03/24 01:08 Test 12/04/24 09:09 Range/Units Serum Glucose 136 H 74-106 mg/dL Problem List/Assessment/Plan Problem List/Assessment/Plan NSTEMI with multivessel disease Cardiopulmonary arrest status post CPR with ROSC Mixed shock, cardiogenic & septic, resolved De Ginger, decompensated HFrEF, NYHA class IV Ischemic cardiomyopathy with LVEF of 10-15% Non-sustained ventricular tachycardia (<3 sec) Acute hypoxic respiratory failure Acute kidney injury, resolving Shock liver, resolved Hyperkalemia, resolved Methamphetamine/cannabinoid use PE ruled out Plan/Recommendations (Dr. Beatty) A transthoracic echocardiogram reveals an EF of 10-15% with severe global hypokinesis. A cardiac catheterization and coronary angiogram revealed multivessel disease for which the patient underwent a myocardial viability study deemed to be amenable for coronary intervention. Scheduled for Impella device assisted high-risk PCI with Dr. Beatty on . In the meantime, continue dual antiplatelet therapy, lipid lowering agent, and GDMT for HFrEF as BP permits. Further recommendations per clinical course and progression. Thank you for allowing us to care for this patient. Please call with any questions or concerns. Critical care time spent: 30 minutes. This medical document was created using an electronic medical record system with voice recognition software and computerized dictation system. Although this document has been carefully reviewed, there might still be some phonetic and typographical errors. Occasional wrong-word or ``sound-alike substitutions may have occurred due to the inherent limitations of voice recognition software. These areas are purely typographical due to imperfections of the software programs and do not reflect any compromise in the patient's medical care. Please read the chart carefully and recognize, using context, where these substitutions have occurred. Plan discussed with: Patient, Other Dietary Evaluation Review Comments: Nutrition Recommendation: 1) TF Jevity 1.2Cal @ 70ml/hr x 24hr (goal rate) along with Pro-stat 1 pk daily. Start @ 20ml/hr, increase 10ml/hr Q4H until goal is reached. TF @ goal volume along with Pro-stat & Propofol provide 2116 kcal (100% energy needs), 108 gm protein (100% protein needs), 1356 ml free water. 2) Water flush 190 ml Q6H if allowed, adjust PRN 3) TPN if NPO >7 days 4) Monitor NPO status, lab values, wt trend, I/O Expected Outcomes/Goals: To meet >75% estimated needs Lab values to improve Fu 2-3 days Date of Service: Dec 05, 2024 Billing Provider: LORETTA FRIAS Cardiology Common Codes: [id number] HOSP CARE(High LORETTA FRIAS Dec 05, 2024 20:01
[2024-12-05] MEDS: ATORVASTATIN 20 MG TAB PO SCH (22:18)
--- NOTE | 2024-12-05 22:41 | DVHPN2 ---
Progress Note - Dictate Date Seen: Dec 05, 2024 Medical Necessity Reason Pt with a Central, PICC or Fol: No Subjective Patient was seen and evaluated in follow up. Sitter is at bedside. Patient is on 4 LPM NC. The patient underwent a myocardial viability study deemed to be amenable for coronary intervention. Patient is scheduled for Impella device assisted high-risk PCI with Dr. Beatty on . Telemetry reviewed. vital signs Vital Sign Date Time Temp Pulse Resp B/P (MAP) Pulse Ox O2 Delivery O2 Flow Rate FiO2 12/05/24 13:10 104/65 12/05/24 09:00 87 18 100 12/05/24 07:30 Nasal Cannula* 4 36 12/05/24 05:01 98.3 98.3 Total Intake and Output 12/04/24 12/04/24 12/05/24 15:00 23:00 07:00 Intake Total 358 ml 720 ml 0 ml Output Total 900 ml 500 ml Balance 358 ml -180 ml -500 ml medications Current Medications Medications Dose Ordered Sig/Dona Route Start Time Stop Time Status Last Admin Dose Admin Ondansetron HCl 4 mg Q4HP PRN IV 11/19/24 08:45 Docusate Sodium 100 mg BIDPRN PRN PO 11/19/24 08:45 Acetaminophen 650 mg Q6HP PRN PO 11/19/24 08:45 11/28/24 14:14 650 MG Nitroglycerin 0.4 mg Q5MINP PRN SL 11/19/24 08:45 Sodium Chloride 10 ml QSHIFT@ IV 11/25/24 22:00 12/05/24 10:14 10 ML Bisacodyl 10 mg DAILYP PRN [place] 12/01/24 07:30 Morphine Sulfate 1 mg Q3HP PRN IV 11/30/24 14:15 11/30/24 14:29 1 MG Empaglifozin 10 mg DAILY PO 12/02/24 10:00 12/05/24 10:13 10 MG Pantoprazole Sodium 40 mg DAILY@0600 PO 12/03/24 06:00 12/04/24 05:51 40 MG Clopidogrel Bisulfate 75 mg DAILY PO 12/03/24 10:00 12/05/24 10:13 75 MG Aspirin 81 mg DAILY PO 12/02/24 10:00 12/05/24 10:13 81 MG Nicotine 1 patch DAILY TD 12/03/24 10:00 12/05/24 10:14 1 PATCH Sacubitril/ Valsartan 0.5 tab BID PO 12/03/24 10:00 12/05/24 10:13 0.5 TAB Potassium Bicarbonate 25 meq DAILY PO 12/03/24 10:00 12/05/24 10:14 25 MEQ Furosemide 40 mg DAILY IV 12/05/24 06:00 12/05/24 10:15 40 MG objective GENERAL: Alert and oriented x 3. No acute distress. EYES: PERRL, EOMI. Anicteric. HENT: Moist mucous membranes. LUNGS: Decreased breath sounds. CARDIOVASCULAR: Regular rate and rhythm. ABDOMEN: Soft, nontender and nondistended. EXTREMITIES: No edema. NEUROLOGIC: No focal neurological deficits. SKIN: Warm, dry. laboratory and microbiology Laboratory Tests 12/04/24 09:09 12/03/24 01:08 Test 12/04/24 09:09 Range/Units Serum Glucose 136 H 74-106 mg/dL Problem List CAD ischemic cardiomyopathy. Cardiopulmonary arrest status post CPR with ROSC. Mixed shock, cardiogenic versus septic. De Ginger, decompensated HFrEF, NYHA class IV. NSTEMI, with severe coronary artery disease. Moderate tricuspid valve regurgitation. Acute hypoxic respiratory failure. Acute kidney injury. Bacteremia. Hyperkalemia, resolved. Shock liver. History of methamphetamine use. Assessment/Plan Continued all current supportive medical care. Aspirin, Lipitor, Plavix. Diuretics with Lasix. Nitro SL. Entresto. Additional plan as per the hospital course. Dietary Evaluation Review Comments: Nutrition Recommendation: 1) TF Jevity 1.2Cal @ 70ml/hr x 24hr (goal rate) along with Pro-stat 1 pk daily. Start @ 20ml/hr, increase 10ml/hr Q4H until goal is reached. TF @ goal volume along with Pro-stat & Propofol provide 2116 kcal (100% energy needs), 108 gm protein (100% protein needs), 1356 ml free water. 2) Water flush 190 ml Q6H if allowed, adjust PRN 3) TPN if NPO >7 days 4) Monitor NPO status, lab values, wt trend, I/O Expected Outcomes/Goals: To meet >75% estimated needs Lab values to improve Fu 2-3 days Plan discussed with: Patient SULAIMAN MALLOY MD Dec 05, 2024 15:49
[2024-12-06] VITALS (8 sets, daily range): BP systolic 90–122; BP diastolic 48–93; PULSE 16–95; RESP 16–18; TEMP 97.4–98.4; O2SAT 90–100
--- NOTE | 2024-12-06 17:50 | DVHPN2 ---
Subjective SAME Reviewed: Care Plan, H&P, Labs, Medications, Previous Orders, Radiology Changes from previous H/P or p: No Changes General: Per HPI Objective Vitals Vital Signs Date Time Temp Pulse Resp B/P (MAP) Pulse Ox O2 Delivery O2 Flow Rate FiO2 12/06/24 17:00 97.7 80 18 102/58 (73) 98 97.7 12/06/24 07:30 Nasal Cannula* 4 36 Intake/Output Intake and Output 12/06/24 06:59 Intake Total 1890 ml Output Total 1850 ml Balance 40 ml Intake Oral 1890 ml Output Urine Total 1850 ml # Bowel Movements 4 General Appearance: Alert, Oriented X3, Cooperative, No acute distress HEENT: Atraumatic Lungs: Other (FEW CRACKLES B LUNGS) Cardiovascular: Regular rate Abdomen: Normal bowel sounds, Soft, No tenderness Medications Current Medications Medications Dose Ordered Sig/Dona Route Start Time Stop Time Status Last Admin Dose Admin Ondansetron HCl 4 mg Q4HP PRN IV 11/19/24 08:45 Docusate Sodium 100 mg BIDPRN PRN PO 11/19/24 08:45 Acetaminophen 650 mg Q6HP PRN PO 11/19/24 08:45 11/28/24 14:14 650 MG Nitroglycerin 0.4 mg Q5MINP PRN SL 11/19/24 08:45 Sodium Chloride 10 ml QSHIFT@ IV 11/25/24 22:00 12/06/24 09:19 10 ML Bisacodyl 10 mg DAILYP PRN [place] 12/01/24 07:30 Morphine Sulfate 1 mg Q3HP PRN IV 11/30/24 14:15 11/30/24 14:29 1 MG Empaglifozin 10 mg DAILY PO 12/02/24 10:00 12/06/24 09:17 10 MG Pantoprazole Sodium 40 mg DAILY@0600 PO 12/03/24 06:00 12/06/24 05:35 40 MG Clopidogrel Bisulfate 75 mg DAILY PO 12/03/24 10:00 12/06/24 09:17 75 MG Aspirin 81 mg DAILY PO 12/02/24 10:00 12/06/24 09:18 81 MG Nicotine 1 patch DAILY TD 12/03/24 10:00 12/06/24 09:19 1 PATCH Sacubitril/ Valsartan 0.5 tab BID PO 12/03/24 10:00 12/06/24 10:00 0.5 TAB Potassium Bicarbonate 25 meq DAILY PO 12/03/24 10:00 12/06/24 09:20 25 MEQ Furosemide 40 mg DAILY IV 12/05/24 06:00 12/05/24 10:15 40 MG Atorvastatin Calcium 40 mg HS PO 12/05/24 22:00 12/05/24 22:18 40 MG Laboratory Results Laboratory Tests 12/03/24 01:08 12/04/24 09:09 Urinalysis Test 11/19/24 08:35 Urine Color Yellow (Yellow) Urine Clarity Clear (Clear) Urine pH 5.5 (5.0-9.0) Urine Specific [place] 1.017 (1.001-1.035) Urine Protein 1+ (Negative) H Urine Ketones Negative (Negative) Urine Blood 2+ /uL (Negative) H Urine Nitrite Negative (Negative) Urine Bilirubin Negative (Negative) Urine Urobilinogen Normal mg/dL (Negative) Urine Leukocyte Esterase Negative /uL (Negative) Urine RBC 33 /hpf (0 - 3) Urine Microscopic WBC 6 /HPF (0-3) H Urine Squamous Epithelial Cells Few /hpf (<5) Urine Bacteria None seen /hpf (None Seen) Urine Osmolality 518 mOsm/kg Urine Creatinine 104.97 mg/dL (30.0-125.0) Urine Protein/Creatinine Ratio 1.03 Urine Sodium 21 mmol/L (40-220) L Urine Glucose Normal mg/dL (Normal) Urine Total Protein 108.6 mg/dL (1-14) H Microbiology Microbiology Date/Time Source Procedure Growth Status 11/23/24 09:12 Blood Blood Culture - Final NO GROWTH AFTER 5 DAYS OF INCUBATION. Complete 11/20/24 04:00 Nose MRSA Screen - Final Complete 11/19/24 09:42 Sputum Expectorated Sputum Gram Stain - Final Complete 11/19/24 09:42 Respiratory Culture - Final Streptococcus Group B Complete Assessment/Plan Assessment/Plan Status post acute hypoxemic respiratory failure Ischemic cardiomyopathy with EF 10% Coronary artery disease Status post CPR Status post shock/cardiogenic and septic Pneumonia Nonsustained V-tach Acute kidney injury Shock liver History of methamphetamine use Hepatitis-C antibody positive Plan: Continue current plan of care Plan discussed with: Patient Date of Service: Dec 06, 2024 Billing Provider: ION BROWN MD Common Visit Codes: [id number] INP/OBS CARE(HIGH) ION BROWN MD Dec 06, 2024 17:50
--- NOTE | 2024-12-06 20:15 | DVHPN2 ---
Progress Note - Dictate Date Seen: Dec 06, 2024 Medical Necessity Reason Pt with a Central, PICC or Fol: No Subjective Patient was seen and evaluated in follow up. No overnight events. Patient is on 4 LPM NC. Patient does not voice any complaints today. Telemetry reviewed. vital signs Vital Sign Date Time Temp Pulse Resp B/P (MAP) Pulse Ox O2 Delivery O2 Flow Rate FiO2 12/06/24 17:00 97.7 80 18 102/58 (73) 98 97.7 12/06/24 07:30 Nasal Cannula* 4 36 Total Intake and Output 12/05/24 12/05/24 12/06/24 15:00 23:00 07:00 Intake Total 1345 ml 545 ml Output Total 900 ml 950 ml Balance 445 ml -405 ml medications Current Medications Medications Dose Ordered Sig/Dona Route Start Time Stop Time Status Last Admin Dose Admin Ondansetron HCl 4 mg Q4HP PRN IV 11/19/24 08:45 Docusate Sodium 100 mg BIDPRN PRN PO 11/19/24 08:45 Acetaminophen 650 mg Q6HP PRN PO 11/19/24 08:45 11/28/24 14:14 650 MG Nitroglycerin 0.4 mg Q5MINP PRN SL 11/19/24 08:45 Sodium Chloride 10 ml QSHIFT@ IV 11/25/24 22:00 12/06/24 09:19 10 ML Bisacodyl [address] 12/01/24 07:30 Morphine Sulfate 1 mg Q3HP PRN IV 11/30/24 14:15 11/30/24 14:29 1 MG Empaglifozin 10 mg DAILY PO 12/02/24 10:00 12/06/24 09:17 10 MG Pantoprazole Sodium 40 mg DAILY@0600 PO 12/03/24 06:00 12/06/24 05:35 40 MG Clopidogrel Bisulfate 75 mg DAILY PO 12/03/24 10:00 12/06/24 09:17 75 MG Aspirin 81 mg DAILY PO 12/02/24 10:00 12/06/24 09:18 81 MG Nicotine 1 patch DAILY TD 12/03/24 10:00 12/06/24 09:19 1 PATCH Sacubitril/ Valsartan 0.5 tab BID PO 12/03/24 10:00 12/06/24 10:00 0.5 TAB Potassium Bicarbonate 25 meq DAILY PO 12/03/24 10:00 12/06/24 09:20 25 MEQ Furosemide 40 mg DAILY IV 12/05/24 06:00 12/06/24 10:00 40 MG Atorvastatin Calcium 40 mg HS PO 12/05/24 22:00 12/05/24 22:18 40 MG objective GENERAL: Alert and oriented x 3. No acute distress. EYES: PERRL, EOMI. Anicteric. HENT: Moist mucous membranes. LUNGS: Decreased breath sounds. CARDIOVASCULAR: Regular rate and rhythm. ABDOMEN: Soft, nontender and nondistended. EXTREMITIES: No edema. NEUROLOGIC: No focal neurological deficits. SKIN: Warm, dry. laboratory and microbiology Laboratory Tests 12/04/24 09:09 12/03/24 01:08 Test 12/04/24 09:09 Range/Units Serum Glucose 136 H 74-106 mg/dL Problem List CAD ischemic cardiomyopathy. Cardiopulmonary arrest status post CPR with ROSC. Mixed shock, cardiogenic versus septic. De Ginger, decompensated HFrEF, NYHA class IV. NSTEMI, with severe coronary artery disease. Moderate tricuspid valve regurgitation. Acute hypoxic respiratory failure. Acute kidney injury. Bacteremia. Hyperkalemia, resolved. Shock liver. History of methamphetamine use. Assessment/Plan Continued all current supportive medical care. Aspirin, Lipitor, Plavix. Diuretics with Lasix. Morphine for pain management. Nitro SL. GI prophylactics. Entresto. Additional plan as per the hospital course. Dietary Evaluation Review Comments: Nutrition Recommendation: 1) TF Jevity 1.2Cal @ 70ml/hr x 24hr (goal rate) along with Pro-stat 1 pk daily. Start @ 20ml/hr, increase 10ml/hr Q4H until goal is reached. TF @ goal volume along with Pro-stat & Propofol provide 2116 kcal (100% energy needs), 108 gm protein (100% protein needs), 1356 ml free water. 2) Water flush 190 ml Q6H if allowed, adjust PRN 3) TPN if NPO >7 days 4) Monitor NPO status, lab values, wt trend, I/O Expected Outcomes/Goals: To meet >75% estimated needs Lab values to improve Fu 2-3 days Plan discussed with: Patient SULAIMAN MALLOY MD Dec 06, 2024 20:15
[2024-12-07] VITALS (7 sets, daily range): BP systolic 103–117; BP diastolic 65–86; PULSE 56–104; RESP 16–18; TEMP 97.6–98.2; O2SAT 95–100
--- NOTE | 2024-12-07 16:11 | DVHPN2 ---
Subjective SAME Reviewed: Care Plan, H&P, Labs, Medications, Previous Orders, Radiology Changes from previous H/P or p: No Changes General: Per HPI Objective Vitals Vital Signs Date Time Temp Pulse Resp B/P (MAP) Pulse Ox O2 Delivery O2 Flow Rate FiO2 12/07/24 12:43 97.6 56 18 117/77 (90) 96 97.6 12/07/24 07:30 Nasal Cannula* 4 36 Intake/Output Intake and Output 12/07/24 07:00 Intake Total 1860 ml Output Total 1500 ml Balance 360 ml Intake Oral 1860 ml Output Urine Total 1500 ml # Bowel Movements 1 General Appearance: Alert, Oriented X3, Cooperative, No acute distress HEENT: Atraumatic Lungs: Other (FEW CRACKLES B LUNGS) Cardiovascular: Regular rate Abdomen: Normal bowel sounds, Soft, No tenderness Medications Current Medications Medications Dose Ordered Sig/Dona Route Start Time Stop Time Status Last Admin Dose Admin Ondansetron HCl 4 mg Q4HP PRN IV 11/19/24 08:45 Docusate Sodium 100 mg BIDPRN PRN PO 11/19/24 08:45 Acetaminophen 650 mg Q6HP PRN PO 11/19/24 08:45 11/28/24 14:14 650 MG Nitroglycerin 0.4 mg Q5MINP PRN SL 11/19/24 08:45 Sodium Chloride 10 ml QSHIFT@22 IV 11/25/24 22:00 12/07/24 09:41 10 ML Bisacodyl 10 mg DAILYP PRN [place] 12/01/24 07:30 Morphine Sulfate 1 mg Q3HP PRN IV 11/30/24 14:15 11/30/24 14:29 1 MG Empaglifozin 10 mg DAILY PO 12/02/24 10:00 12/07/24 09:25 10 MG Pantoprazole Sodium 40 mg DAILY@0600 PO 12/03/24 06:00 12/07/24 05:29 40 MG Clopidogrel Bisulfate 75 mg DAILY PO 12/03/24 10:00 12/07/24 09:24 75 MG Aspirin 81 mg DAILY PO 12/02/24 10:00 12/07/24 09:24 81 MG Nicotine 1 patch DAILY TD 12/03/24 10:00 12/07/24 09:26 1 PATCH Sacubitril/ Valsartan 0.5 tab BID PO 12/03/24 10:00 12/07/24 09:34 0.5 TAB Potassium Bicarbonate 25 meq DAILY PO 12/03/24 10:00 12/07/24 09:25 25 MEQ Furosemide 40 mg DAILY IV 12/05/24 06:00 12/07/24 09:24 40 MG Atorvastatin Calcium 40 mg HS PO 12/05/24 22:00 12/06/24 21:15 40 MG Laboratory Results Laboratory Tests 12/03/24 01:08 12/04/24 09:09 Urinalysis Test 11/19/24 08:35 Urine Color Yellow (Yellow) Urine Clarity Clear (Clear) Urine pH 5.5 (5.0-9.0) Urine Specific [place] 1.017 (1.001-1.035) Urine Protein 1+ (Negative) H Urine Ketones Negative (Negative) Urine Blood 2+ /uL (Negative) H Urine Nitrite Negative (Negative) Urine Bilirubin Negative (Negative) Urine Urobilinogen Normal mg/dL (Negative) Urine Leukocyte Esterase Negative /uL (Negative) Urine RBC 33 /hpf (0 - 3) Urine Microscopic WBC 6 /HPF (0-3) H Urine Squamous Epithelial Cells Few /hpf (<5) Urine Bacteria None seen /hpf (None Seen) Urine Osmolality 518 mOsm/kg Urine Creatinine 104.97 mg/dL (30.0-125.0) Urine Protein/Creatinine Ratio 1.03 Urine Sodium 21 mmol/L (40-220) L Urine Glucose Normal mg/dL (Normal) Urine Total Protein 108.6 mg/dL (1-14) H Microbiology Microbiology Date/Time Source Procedure Growth Status 11/23/24 09:12 Blood Blood Culture - Final NO GROWTH AFTER 5 DAYS OF INCUBATION. Complete 11/20/24 04:00 Nose MRSA Screen - Final Complete 11/19/24 09:42 Sputum Expectorated Sputum Gram Stain - Final Complete 11/19/24 09:42 Respiratory Culture - Final Streptococcus Group B Complete Assessment/Plan Assessment/Plan Status post acute hypoxemic respiratory failure Ischemic cardiomyopathy with EF 10% Coronary artery disease Status post CPR Status post shock/cardiogenic and septic Pneumonia Nonsustained V-tach Acute kidney injury Shock liver History of methamphetamine use Hepatitis-C antibody positive Plan: Continue current plan of care Plan discussed with: Patient Date of Service: Dec 07, 2024 Billing Provider: ION BROWN MD Common Visit Codes: [id number] INP/OBS CARE(MOD) ION BROWN MD Dec 07, 2024 16:11
--- NOTE | 2024-12-07 19:02 | DVHPN2 ---
[facility] DOS: 12/05/2024 Patient seen and examined at bedside. Remains on supplemental oxygen. Overnight events reviewed. HPI: A 69-year-old man with PMHx of hypertension and methamphetamine abuse who came to the ER on 11/19/24 for evaluation of shortness of breath. Per ER documentation, patient presented with complaints of shortness of breath x 1 week. While in the ER he was given a breathing treatment and placed on oxygen. He continued to have shortness of breath, increased work of breathing, and anxiety. He was placed on BiPAP, not tolerating due to anxiety. He subsequently had a cardiac arrest while in the ER, achieved ROSC and patient was intubated and placed on mechanical ventilator. He was admitted for further care. Pulmonary consultation is requested for evaluation and management d/t acute hypoxic respiratory failure requiring mechanical ventilator Past Medical History: Hypertension, methamphetamine abuse (per ER records). Past Surgical History: Unable to obtain Medications: Reviewed. Allergies: No known drug allergies. Family History: No family history of premature CAD. No family history of lung disorders. Social History: Nonsmoker. No alcohol use. Hx of methamphetamine abuse. Reviewed: Care Plan, H&P, Labs, Medications, Previous Orders, Radiology Changes from previous H/P or p: No Changes General: Per HPI Objective Vitals Vital Signs Date Time Temp Pulse Resp B/P (MAP) Pulse Ox O2 Delivery O2 Flow Rate FiO2 12/07/24 17:00 97.7 96 18 115/83 (94) 100 97.7 12/07/24 07:30 Nasal Cannula* 4 36 Intake/Output Intake and Output 12/07/24 07:00 Intake Total 1860 ml Output Total 1500 ml Balance 360 ml Intake Oral 1860 ml Output Urine Total 1500 ml # Bowel Movements 1 General Appearance: Alert, Oriented X3, Cooperative, No acute distress HEENT: Atraumatic Lungs: Other (FEW CRACKLES B LUNGS) Cardiovascular: Regular rate Abdomen: Normal bowel sounds, Soft, No tenderness Musculoskeletal: Normal sensory function, Normal motor function Neuro: Strength at 5/5 X4 ext, Cranial nerves 3-12 NL Skin: Dry, Intact, Warm Psych/Mental Status: Mental status NL, Mood NL Medications Current Medications Medications Dose Ordered Sig/Dona Route Start Time Stop Time Status Last Admin Dose Admin Ondansetron HCl 4 mg Q4HP PRN IV 11/19/24 08:45 Docusate Sodium 100 mg BIDPRN PRN PO 11/19/24 08:45 Acetaminophen 650 mg Q6HP PRN PO 11/19/24 08:45 11/28/24 14:14 650 MG Nitroglycerin 0.4 mg Q5MINP PRN SL 11/19/24 08:45 Sodium Chloride 10 ml QSHIFT@,22 IV 11/25/24 22:00 12/07/24 09:41 10 ML Bisacodyl 10 mg DAILYP PRN [place] 12/01/24 07:30 Morphine Sulfate 1 mg Q3HP PRN IV 11/30/24 14:15 11/30/24 14:29 1 MG Empaglifozin 10 mg DAILY PO 12/02/24 10:00 12/07/24 09:25 10 MG Pantoprazole Sodium 40 mg DAILY@0600 PO 12/03/24 06:00 12/07/24 05:29 40 MG Clopidogrel Bisulfate 75 mg DAILY PO 12/03/24 10:00 12/07/24 09:24 75 MG Aspirin 81 mg DAILY PO 12/02/24 10:00 12/07/24 09:24 81 MG Nicotine 1 patch DAILY TD 12/03/24 10:00 12/07/24 09:26 1 PATCH Sacubitril/ Valsartan 0.5 tab BID PO 12/03/24 10:00 12/07/24 09:34 0.5 TAB Potassium Bicarbonate 25 meq DAILY PO 12/03/24 10:00 12/07/24 09:25 25 MEQ Furosemide 40 mg DAILY IV 12/05/24 06:00 12/07/24 09:24 40 MG Atorvastatin Calcium 40 mg HS PO 12/05/24 22:00 12/06/24 21:15 40 MG Laboratory Results Laboratory Tests 12/03/24 01:08 12/04/24 09:09 Urinalysis Test 11/19/24 08:35 Urine Color Yellow (Yellow) Urine Clarity Clear (Clear) Urine pH 5.5 (5.0-9.0) Urine Specific [place] 1.017 (1.001-1.035) Urine Protein 1+ (Negative) H Urine Ketones Negative (Negative) Urine Blood 2+ /uL (Negative) H Urine Nitrite Negative (Negative) Urine Bilirubin Negative (Negative) Urine Urobilinogen Normal mg/dL (Negative) Urine Leukocyte Esterase Negative /uL (Negative) Urine RBC 33 /hpf (0 - 3) Urine Microscopic WBC 6 /HPF (0-3) H Urine Squamous Epithelial Cells Few /hpf (<5) Urine Bacteria None seen /hpf (None Seen) Urine Osmolality 518 mOsm/kg Urine Creatinine 104.97 mg/dL (30.0-125.0) Urine Protein/Creatinine Ratio 1.03 Urine Sodium 21 mmol/L (40-220) L Urine Glucose Normal mg/dL (Normal) Urine Total Protein 108.6 mg/dL (1-14) H Microbiology Microbiology Date/Time Source Procedure Growth Status 11/23/24 09:12 Blood Blood Culture - Final NO GROWTH AFTER 5 DAYS OF INCUBATION. Complete 11/20/24 04:00 Nose MRSA Screen - Final Complete 11/19/24 09:42 Sputum Expectorated Sputum Gram Stain - Final Complete 11/19/24 09:42 Respiratory Culture - Final Streptococcus Group B Complete Assessment/Plan Assessment/Plan Impression: Acute hypoxic respiratory failure Chronic hypercarbic respiratory failure, PaCO2 63 mmHg. Dependence on supplemental oxygen Hyperkalemia Acute decompensated Heart Failure Acute kidney Injury Methamphetamine use Marijuana use Aspiration Hepatitis C Events: Remains on supplemental oxygen On 2 LPM NC Taper O2 as tolerated Improving O2 requirements Head of bed elevation Aspiration precautions Monitor closely d/t high risk of aspiration Off pressors, hemodynamically stable. Bronchodilators PRN Incentive spirometry On Plavix Entresto Maintain euvolemia with Lasix q. daily Monitor renal function Monitor electrolytes. Supplement as necessary. Potassium supplementation Protonix for GI ppx Continue NRT. Labs and imaging reviewed. Rest of plan as noted below. Plan: s/p extubation on 11/30/24 Continue supplemental oxygen Titrate to keep O2 saturation above 92%. Taper O2 as tolerated Pressors if necessary for hemodynamic support. Titrate to keep MAP above 65 mmHg/SBP above 90 mmHg. Antibiotics. F/u cultures. Bronchodilators Monitor renal function due to acute kidney injury. Diurese to euvolemia Monitor electrolytes. Supplement as necessary. Hypokalemia, supplement Nutritional support. Accucheks, ISS. GI/DVT prophylaxis. Prognosis: Poor given multiple comorbidities. Rest of plan per hospitalist and other consultants. Thank you for allowing me to participate in this patient's care. Further recommendations will depend on patient's clinical course. Please do not hesitate to contact me if you have any questions or concerns. This medical document was created using an electronic medical record system with [employer] computerized dictation system. Although this document has been carefully reviewed, there may still be some phonetic and typographical errors. These areas are purely typographical due to imperfections of the software programs, and do not reflect any compromise in the patient's medical care. Plan discussed with: Patient, Other (SELMA Swenson) Date of Service: Dec 05, 2024 Billing Provider: JHONY GARIBAY MD Common Visit Codes: [id number] INP/OBS CARE(HIGH) JHONY GARIBAY MD Dec 07, 2024 19:01
--- NOTE | 2024-12-07 21:38 | DVHPN2 ---
Progress Note - Dictate Date Seen: Dec 07, 2024 Medical Necessity Reason Pt with a Central, PICC or Fol: No Subjective Patient was seen and evaluated in follow up. No overnight events. Patient resting in bed without any complaints. Patient remains on 4 LPM NC. Telemetry reviewed. vital signs Vital Sign Date Time Temp Pulse Resp B/P (MAP) Pulse Ox O2 Delivery O2 Flow Rate FiO2 12/07/24 12:43 97.6 56 18 117/77 (90) 96 97.6 12/07/24 07:30 Nasal Cannula* 4 36 Total Intake and Output 12/06/24 12/06/24 12/07/24 14:59 22:59 06:59 Intake Total 480 ml 1380 ml 0 ml Output Total 1500 ml Balance 480 ml -120 ml 0 ml medications Current Medications Medications Dose Ordered Sig/Dona Route Start Time Stop Time Status Last Admin Dose Admin Ondansetron HCl 4 mg Q4HP PRN IV 11/19/24 08:45 Docusate Sodium 100 mg BIDPRN PRN PO 11/19/24 08:45 Acetaminophen 650 mg Q6HP PRN PO 11/19/24 08:45 11/28/24 14:14 650 MG Nitroglycerin 0.4 mg Q5MINP PRN SL 11/19/24 08:45 Sodium Chloride 10 ml QSHIFT@ IV 11/25/24 22:00 12/07/24 09:41 10 ML Bisacodyl 10 mg DAILYP PRN [place] 12/01/24 07:30 Morphine Sulfate 1 mg Q3HP PRN IV 11/30/24 14:15 11/30/24 14:29 1 MG Empaglifozin 10 mg DAILY PO 12/02/24 10:00 12/07/24 09:25 10 MG Pantoprazole Sodium 40 mg DAILY@0600 PO 12/03/24 06:00 12/07/24 05:29 40 MG Clopidogrel Bisulfate 75 mg DAILY PO 12/03/24 10:00 12/07/24 09:24 75 MG Aspirin 81 mg DAILY PO 12/02/24 10:00 12/07/24 09:24 81 MG Nicotine 1 patch DAILY TD 12/03/24 10:00 12/07/24 09:26 1 PATCH Sacubitril/ Valsartan 0.5 tab BID PO 9/24/25 10:00 12/07/24 09:34 0.5 TAB Potassium Bicarbonate 25 meq DAILY PO 12/03/24 10:00 12/07/24 09:25 25 MEQ Furosemide 40 mg DAILY IV 12/05/24 06:00 12/07/24 09:24 40 MG Atorvastatin Calcium 40 mg HS PO 12/05/24 22:00 12/06/24 21:15 40 MG objective GENERAL: Alert and oriented x 3. No acute distress. EYES: PERRL, EOMI. Anicteric. HENT: Moist mucous membranes. LUNGS: Decreased breath sounds. CARDIOVASCULAR: Regular rate and rhythm. ABDOMEN: Soft, nontender and nondistended. EXTREMITIES: No edema. NEUROLOGIC: No focal neurological deficits. SKIN: Warm, dry. laboratory and microbiology Laboratory Tests 12/04/24 09:09 12/03/24 01:08 Test 12/04/24 09:09 Range/Units Serum Glucose 136 H 74-106 mg/dL Problem List CAD ischemic cardiomyopathy. Cardiopulmonary arrest status post CPR with ROSC. Mixed shock, cardiogenic versus septic. [place], decompensated HFrEF, NYHA class IV. NSTEMI, with severe coronary artery disease. Moderate tricuspid valve regurgitation. Acute hypoxic respiratory failure. Acute kidney injury. Bacteremia. Hyperkalemia, resolved. Shock liver. History of methamphetamine use. Assessment/Plan Continued all current supportive medical care. Aspirin, Lipitor, Plavix. Diuretics with Lasix. Morphine for pain management. Nitro SL. GI prophylactics. Entresto. Additional plan as per the hospital course. Dietary Evaluation Review Comments: Nutrition Recommendation: 1) TF Jevity 1.2Cal @ 70ml/hr x 24hr (goal rate) along with Pro-stat 1 pk daily. Start @ 20ml/hr, increase 10ml/hr Q4H until goal is reached. TF @ goal volume along with Pro-stat & Propofol provide 2116 kcal (100% energy needs), 108 gm protein (100% protein needs), 1356 ml free water. 2) Water flush 190 ml Q6H if allowed, adjust PRN 3) TPN if NPO >7 days 4) Monitor NPO status, lab values, wt trend, I/O Expected Outcomes/Goals: To meet >75% estimated needs Lab values to improve Fu 2-3 days Plan discussed with: Patient SULAIMAN MALLOY MD Dec 07, 2024 13:32
[2024-12-07] MEDS ORDERED: MELA3TAB27 PO (22:03)
--- NOTE | 2024-12-07 22:37 | DVHPN2 ---
[facility] DOS: 12/06/2024 Patient seen and examined at bedside. Remains on supplemental oxygen. Overnight events reviewed. HPI: A 69-year-old man with PMHx of hypertension and methamphetamine abuse who came to the ER on 11/19/24 for evaluation of shortness of breath. Per ER documentation, patient presented with complaints of shortness of breath x 1 week. While in the ER he was given a breathing treatment and placed on oxygen. He continued to have shortness of breath, increased work of breathing, and anxiety. He was placed on BiPAP, not tolerating due to anxiety. He subsequently had a cardiac arrest while in the ER, achieved ROSC and patient was intubated and placed on mechanical ventilator. He was admitted for further care. Pulmonary consultation is requested for evaluation and management d/t acute hypoxic respiratory failure requiring mechanical ventilator Past Medical History: Hypertension, methamphetamine abuse (per ER records). Past Surgical History: Unable to obtain Medications: Reviewed. Allergies: No known drug allergies. Family History: No family history of premature CAD. No family history of lung disorders. Social History: Nonsmoker. No alcohol use. Hx of methamphetamine abuse. Reviewed: Care Plan, H&P, Labs, Medications, Previous Orders, Radiology Changes from previous H/P or p: No Changes General: Per HPI Objective Vitals Vital Signs Date Time Temp Pulse Resp B/P (MAP) Pulse Ox O2 Delivery O2 Flow Rate FiO2 12/07/24 21:12 98.2 100 18 115/86 (96) 100 98.2 12/07/24 07:30 Nasal Cannula* 4 36 Intake/Output Intake and Output 12/07/24 07:00 Intake Total 1860 ml Output Total 1500 ml Balance 360 ml Intake Oral 1860 ml Output Urine Total 1500 ml # Bowel Movements 1 General Appearance: Alert, Oriented X3, Cooperative, No acute distress HEENT: Atraumatic Lungs: Other (FEW CRACKLES B LUNGS) Cardiovascular: Regular rate Abdomen: Normal bowel sounds, Soft, No tenderness Musculoskeletal: Normal sensory function, Normal motor function Neuro: Strength at 5/5 X4 ext, Cranial nerves 3-12 NL Skin: Dry, Intact, Warm Psych/Mental Status: Mental status NL, Mood NL Medications Current Medications Medications Dose Ordered Sig/Dona Route Start Time Stop Time Status Last Admin Dose Admin Ondansetron HCl 4 mg Q4HP PRN IV 11/19/24 08:45 Docusate Sodium 100 mg BIDPRN PRN PO 11/19/24 08:45 Acetaminophen 650 mg Q6HP PRN PO 11/19/24 08:45 11/28/24 14:14 650 MG Nitroglycerin 0.4 mg Q5MINP PRN SL 11/19/24 08:45 Sodium Chloride 10 ml QSHIFT@, IV 11/25/24 22:00 12/07/24 21:53 10 ML Bisacodyl 10 mg DAILYP PRN [place] 12/01/24 07:30 Morphine Sulfate 1 mg Q3HP PRN IV 11/30/24 14:15 11/30/24 14:29 1 MG Empaglifozin 10 mg DAILY PO 12/02/24 10:00 12/07/24 09:25 10 MG Pantoprazole Sodium 40 mg DAILY@0600 PO 12/03/24 06:00 12/07/24 05:29 40 MG Clopidogrel Bisulfate 75 mg DAILY PO 12/03/24 10:00 12/07/24 09:24 75 MG Aspirin 81 mg DAILY PO 12/02/24 10:00 12/07/24 09:24 81 MG Nicotine 1 patch DAILY TD 12/03/24 10:00 12/07/24 09:26 1 PATCH Sacubitril/ Valsartan 0.5 tab BID PO 12/03/24 10:00 12/07/24 21:53 0.5 TAB Potassium Bicarbonate 25 meq DAILY PO 12/03/24 10:00 12/07/24 09:25 25 MEQ Furosemide 40 mg DAILY IV 12/05/24 06:00 12/07/24 09:24 40 MG Atorvastatin Calcium 40 mg HS PO 12/05/24 22:00 12/07/24 21:54 40 MG Laboratory Results Laboratory Tests 12/03/24 01:08 12/04/24 09:09 Urinalysis Test 11/19/24 08:35 Urine Color Yellow (Yellow) Urine Clarity Clear (Clear) Urine pH 5.5 (5.0-9.0) Urine Specific [place] 1.017 (1.001-1.035) Urine Protein 1+ (Negative) H Urine Ketones Negative (Negative) Urine Blood 2+ /uL (Negative) H Urine Nitrite Negative (Negative) Urine Bilirubin Negative (Negative) Urine Urobilinogen Normal mg/dL (Negative) Urine Leukocyte Esterase Negative /uL (Negative) Urine RBC 33 /hpf (0 - 3) Urine Microscopic WBC 6 /HPF (0-3) H Urine Squamous Epithelial Cells Few /hpf (<5) Urine Bacteria None seen /hpf (None Seen) Urine Osmolality 518 mOsm/kg Urine Creatinine 104.97 mg/dL (30.0-125.0) Urine Protein/Creatinine Ratio 1.03 Urine Sodium 21 mmol/L (40-220) L Urine Glucose Normal mg/dL (Normal) Urine Total Protein 108.6 mg/dL (1-14) H Microbiology Microbiology Date/Time Source Procedure Growth Status 11/23/24 09:12 Blood Blood Culture - Final NO GROWTH AFTER 5 DAYS OF INCUBATION. Complete 11/20/24 04:00 Nose MRSA Screen - Final Complete 11/19/24 09:42 Sputum Expectorated Sputum Gram Stain - Final Complete 11/19/24 09:42 Respiratory Culture - Final Streptococcus Group B Complete Assessment/Plan Assessment/Plan Impression: Acute hypoxic respiratory failure Chronic hypercarbic respiratory failure, PaCO2 63 mmHg. Dependence on supplemental oxygen Hyperkalemia Acute decompensated Heart Failure Acute kidney Injury Methamphetamine use Marijuana use Aspiration Hepatitis C Events: Remains on supplemental oxygen On 4 LPM NC Taper O2 as tolerated Head of bed elevation Aspiration precautions Monitor closely d/t high risk of aspiration Bronchodilators PRN Incentive spirometry On Plavix Entresto Maintain euvolemia with Lasix q. daily Monitor renal function Monitor electrolytes. Supplement as necessary. Potassium supplementation Protonix for GI ppx Continue NRT. Disposition per hospitalist. Labs and imaging reviewed. Rest of plan as noted below. Plan: s/p extubation on 11/30/24 Continue supplemental oxygen Titrate to keep O2 saturation above 92%. Taper O2 as tolerated Pressors if necessary for hemodynamic support. Titrate to keep MAP above 65 mmHg/SBP above 90 mmHg. Antibiotics. F/u cultures. Bronchodilators Monitor renal function due to acute kidney injury. Diurese to euvolemia Monitor electrolytes. Supplement as necessary. Hypokalemia, supplement Nutritional support. Accucheks, ISS. GI/DVT prophylaxis. Prognosis: Poor given multiple comorbidities. Rest of plan per hospitalist and other consultants. Thank you for allowing me to participate in this patient's care. Further recommendations will depend on patient's clinical course. Please do not hesitate to contact me if you have any questions or concerns. This medical document was created using an electronic medical record system with [employer] dictation system. Although this document has been carefully reviewed, there may still be some phonetic and typographical errors. These areas are purely typographical due to imperfections of the software programs, and do not reflect any compromise in the patient's medical care. Plan discussed with: Patient, Other (RN) Date of Service: Dec 06, 2024 Billing Provider: JHONY GARIBAY MD Common Visit Codes: [id number] INP/OBS CARE(HIGH) JHONY GARIBAY MD Dec 07, 2024 22:37
--- NOTE | 2024-12-07 23:22 | DVHPN2 ---
[facility] LUNG CENTER DOS: 12/07/2024 Patient seen and examined at bedside. Remains on supplemental oxygen. Overnight events reviewed. HPI: A 69-year-old man with PMHx of hypertension and methamphetamine abuse who came to the ER on 11/19/24 for evaluation of shortness of breath. Per ER documentation, patient presented with complaints of shortness of breath x 1 week. While in the ER he was given a breathing treatment and placed on oxygen. He continued to have shortness of breath, increased work of breathing, and anxiety. He was placed on BiPAP, not tolerating due to anxiety. He subsequently had a cardiac arrest while in the ER, achieved ROSC and patient was intubated and placed on mechanical ventilator. He was admitted for further care. Pulmonary consultation is requested for evaluation and management d/t acute hypoxic respiratory failure requiring mechanical ventilator Past Medical History: Hypertension, methamphetamine abuse (per ER records). Past Surgical History: Unable to obtain Medications: Reviewed. Allergies: No known drug allergies. Family History: No family history of premature CAD. No family history of lung disorders. Social History: Nonsmoker. No alcohol use. Hx of methamphetamine abuse. Reviewed: Care Plan, H&P, Labs, Medications, Previous Orders, Radiology Changes from previous H/P or p: No Changes General: Per HPI Objective Vitals Vital Signs Date Time Temp Pulse Resp B/P (MAP) Pulse Ox O2 Delivery O2 Flow Rate FiO2 12/07/24 21:12 98.2 100 18 115/86 (96) 100 98.2 12/07/24 20:00 Nasal Cannula* 4 36 Intake/Output Intake and Output 12/07/24 07:00 Intake Total 1860 ml Output Total 1500 ml Balance 360 ml Intake Oral 1860 ml Output Urine Total 1500 ml # Bowel Movements 1 General Appearance: Alert, Oriented X3, Cooperative, No acute distress HEENT: Atraumatic Lungs: Other (FEW CRACKLES B LUNGS) Cardiovascular: Regular rate Abdomen: Normal bowel sounds, Soft, No tenderness Musculoskeletal: Normal sensory function, Normal motor function Neuro: Strength at 5/5 X4 ext, Cranial nerves 3-12 NL Skin: Dry, Intact, Warm Psych/Mental Status: Mental status NL, Mood NL Medications Current Medications Medications Dose Ordered Sig/Dona Route Start Time Stop Time Status Last Admin Dose Admin Ondansetron HCl 4 mg Q4HP PRN IV 11/19/24 08:45 Docusate Sodium 100 mg BIDPRN PRN PO 11/19/24 08:45 Acetaminophen 650 mg Q6HP PRN PO 11/19/24 08:45 11/28/24 14:14 650 MG Nitroglycerin 0.4 mg Q5MINP PRN SL 11/19/24 08:45 Sodium Chloride 10 ml QSHIFT@, IV 11/25/24 22:00 12/07/24 21:53 10 ML Bisacodyl 10 mg DAILYP PRN NC 12/01/24 07:30 Morphine Sulfate 1 mg Q3HP PRN IV 11/30/24 14:15 11/30/24 14:29 1 MG Empaglifozin 10 mg DAILY PO 12/02/24 10:00 12/07/24 09:25 10 MG Pantoprazole Sodium 40 mg DAILY@0600 PO 12/03/24 06:00 12/07/24 05:29 40 MG Clopidogrel Bisulfate 75 mg DAILY PO 12/03/24 10:00 12/07/24 09:24 75 MG Aspirin 81 mg DAILY PO 12/02/24 10:00 12/07/24 09:24 81 MG Nicotine 1 patch DAILY TD 12/03/24 10:00 12/07/24 09:26 1 PATCH Sacubitril/ Valsartan 0.5 tab BID PO 12/03/24 10:00 12/07/24 21:53 0.5 TAB Potassium Bicarbonate 25 meq DAILY PO 12/03/24 10:00 12/07/24 09:25 25 MEQ Furosemide 40 mg DAILY IV 12/05/24 06:00 12/07/24 09:24 40 MG Atorvastatin Calcium 40 mg HS PO 12/05/24 22:00 12/07/24 21:54 40 MG Laboratory Results Laboratory Tests 12/03/24 01:08 12/04/24 09:09 Urinalysis Test 11/19/24 08:35 Urine Color Yellow (Yellow) Urine Clarity Clear (Clear) Urine pH 5.5 (5.0-9.0) Urine Specific [place] 1.017 (1.001-1.035) Urine Protein 1+ (Negative) H Urine Ketones Negative (Negative) Urine Blood 2+ /uL (Negative) H Urine Nitrite Negative (Negative) Urine Bilirubin Negative (Negative) Urine Urobilinogen Normal mg/dL (Negative) Urine Leukocyte Esterase Negative /uL (Negative) Urine RBC 33 /hpf (0 - 3) Urine Microscopic WBC 6 /HPF (0-3) H Urine Squamous Epithelial Cells Few /hpf (<5) Urine Bacteria None seen /hpf (None Seen) Urine Osmolality 518 mOsm/kg Urine Creatinine 104.97 mg/dL (30.0-125.0) Urine Protein/Creatinine Ratio 1.03 Urine Sodium 21 mmol/L (40-220) L Urine Glucose Normal mg/dL (Normal) Urine Total Protein 108.6 mg/dL (1-14) H Microbiology Microbiology Date/Time Source Procedure Growth Status 11/23/24 09:12 Blood Blood Culture - Final NO GROWTH AFTER 5 DAYS OF INCUBATION. Complete 11/20/24 04:00 Nose MRSA Screen - Final Complete 11/19/24 09:42 Sputum Expectorated Sputum Gram Stain - Final Complete 11/19/24 09:42 Respiratory Culture - Final Streptococcus Group B Complete Assessment/Plan Assessment/Plan Impression: Acute hypoxic respiratory failure Chronic hypercarbic respiratory failure, PaCO2 63 mmHg. Dependence on supplemental oxygen Hyperkalemia Acute decompensated Heart Failure Acute kidney Injury Methamphetamine use Marijuana use Aspiration Hepatitis C Events: Remains on supplemental oxygen On 4 LPM NC Taper O2 as tolerated Head of bed elevation Aspiration precautions Monitor closely d/t high risk of aspiration Bronchodilators PRN Incentive spirometry On Plavix Entresto Maintain euvolemia with Lasix q. daily Monitor renal function Monitor electrolytes. Supplement as necessary. Potassium supplementation Protonix for GI ppx Continue NRT. Disposition per hospitalist. Labs and imaging reviewed. Rest of plan as noted below. Plan: s/p extubation on 11/30/24 Continue supplemental oxygen Titrate to keep O2 saturation above 92%. Taper O2 as tolerated Pressors if necessary for hemodynamic support. Titrate to keep MAP above 65 mmHg/SBP above 90 mmHg. Antibiotics. F/u cultures. Bronchodilators Monitor renal function due to acute kidney injury. Diurese to euvolemia Monitor electrolytes. Supplement as necessary. Hypokalemia, supplement Nutritional support. Accucheks, ISS. GI/DVT prophylaxis. Prognosis: Poor given multiple comorbidities. Rest of plan per hospitalist and other consultants. Thank you for allowing me to participate in this patient's care. Further recommendations will depend on patient's clinical course. Please do not hesitate to contact me if you have any questions or concerns. This medical document was created using an electronic medical record system with [employer] dictation system. Although this document has been carefully reviewed, there may still be some phonetic and typographical errors. These areas are purely typographical due to imperfections of the software programs, and do not reflect any compromise in the patient's medical care. Plan discussed with: Patient, Other (SELMA Swenson) Date of Service: Dec 07, 2024 Billing Provider: JHONY GARIBAY MD Common Visit Codes: [id number] INP/OBS CARE(HIGH) JHONY GARIBAY MD Dec 07, 2024 23:21
[2024-12-07] MEDS: MELATONIN 5 MG TAB PO ONE (23:30)
[2024-12-08] VITALS (8 sets, daily range): BP systolic 98–124; BP diastolic 65–82; PULSE 76–100; RESP 16–18; TEMP 97.5–98.2; O2SAT 93–97
--- NOTE | 2024-12-08 11:13 | DVHPN2 ---
Subjective Patient more alert. Denies any symptoms. Reviewed: Care Plan, H&P, Labs, Medications, Previous Orders, Radiology Changes from previous H/P or p: No Changes General: Per HPI Objective Vitals Vital Signs Date Time Temp Pulse Resp B/P (MAP) Pulse Ox O2 Delivery O2 Flow Rate FiO2 12/08/24 10:06 103/72 12/08/24 09:00 98.2 83 18 96 98.2 12/08/24 08:10 Nasal Cannula* 2 28 Intake/Output Intake and Output 12/08/24 07:00 Intake Total 480 ml Output Total 800 ml Balance -320 ml Intake Oral 480 ml Output Urine Total 800 ml # Bowel Movements 2 General Appearance: Alert, Oriented X3, Cooperative, No acute distress HEENT: Atraumatic Lungs: Other (FEW CRACKLES B LUNGS) Cardiovascular: Regular rate Abdomen: Normal bowel sounds, Soft, No tenderness Musculoskeletal: Normal sensory function, Normal motor function Neuro: Strength at 5/5 X4 ext, Cranial nerves 3-12 NL Skin: Dry, Intact, Warm Psych/Mental Status: Mental status NL, Mood NL Medications Current Medications Medications Dose Ordered Sig/Dona Route Start Time Stop Time Status Last Admin Dose Admin Ondansetron HCl 4 mg Q4HP PRN IV 11/19/24 08:45 Docusate Sodium 100 mg BIDPRN PRN PO 11/19/24 08:45 Acetaminophen 650 mg Q6HP PRN PO 11/19/24 08:45 11/28/24 14:14 650 MG Nitroglycerin 0.4 mg Q5MINP PRN SL 11/19/24 08:45 Sodium Chloride 10 ml QSHIFT@ IV 11/25/24 22:00 12/08/24 10:06 10 ML Bisacodyl 10 mg DAILYP PRN [place] 12/01/24 07:30 Morphine Sulfate 1 mg Q3HP PRN IV 11/30/24 14:15 11/30/24 14:29 1 MG Empaglifozin 10 mg DAILY PO 12/02/24 10:00 12/08/24 10:06 10 MG Pantoprazole Sodium 40 mg DAILY@0600 PO 12/03/24 06:00 12/07/24 05:29 40 MG Clopidogrel Bisulfate 75 mg DAILY PO 12/03/24 10:00 12/08/24 10:06 75 MG Aspirin 81 mg DAILY PO 12/02/24 10:00 12/08/24 10:06 81 MG Nicotine 1 patch DAILY TD 12/03/24 10:00 12/08/24 10:08 1 PATCH Sacubitril/ Valsartan 0.5 tab BID PO 12/03/24 10:00 12/08/24 10:06 0.5 TAB Potassium Bicarbonate 25 meq DAILY PO 12/03/24 10:00 12/08/24 10:06 25 MEQ Atorvastatin Calcium 40 mg HS PO 12/05/24 22:00 12/07/24 21:54 40 MG Laboratory Results Laboratory Tests 12/03/24 01:08 12/04/24 09:09 Urinalysis Test 11/19/24 08:35 Urine Color Yellow (Yellow) Urine Clarity Clear (Clear) Urine pH 5.5 (5.0-9.0) Urine Specific [place] 1.017 (1.001-1.035) Urine Protein 1+ (Negative) H Urine Ketones Negative (Negative) Urine Blood 2+ /uL (Negative) H Urine Nitrite Negative (Negative) Urine Bilirubin Negative (Negative) Urine Urobilinogen Normal mg/dL (Negative) Urine Leukocyte Esterase Negative /uL (Negative) Urine RBC 33 /hpf (0 - 3) Urine Microscopic WBC 6 /HPF (0-3) H Urine Squamous Epithelial Cells Few /hpf (<5) Urine Bacteria None seen /hpf (None Seen) Urine Osmolality 518 mOsm/kg Urine Creatinine 104.97 mg/dL (30.0-125.0) Urine Protein/Creatinine Ratio 1.03 Urine Sodium 21 mmol/L (40-220) L Urine Glucose Normal mg/dL (Normal) Urine Total Protein 108.6 mg/dL (1-14) H Microbiology Microbiology Date/Time Source Procedure Growth Status 11/23/24 09:12 Blood Blood Culture - Final NO GROWTH AFTER 5 DAYS OF INCUBATION. Complete 11/20/24 04:00 Nose MRSA Screen - Final Complete 11/19/24 09:42 Sputum Expectorated Sputum Gram Stain - Final Complete 11/19/24 09:42 Respiratory Culture - Final Streptococcus Group B Complete Labs and/or images reviewed: Labs reviewed by me, Image(s) reviewed by me Assessment/Plan Assessment/Plan Impression: -S/P cardiopulmonary arrest -Acute Hypoxic Respiratory Failure -Acute Decompensated Heart Failure -Hyperkalemia -Acute Kidney Injury/ VMN -Cardiogenic shock -Hx of Amphetamine use -NSTEMI type II -aspiration pneumonia -acute delirium Plan: Events: Discussed plan of care with Cardiology and patient. Patient had viable myocardium noted on dobutamine stress test. Plans for left heart catheterization this coming Sunday. -DC Mayo catheter -O2 supplementation to keep saturation greater than 92% -change Lasix to p.o. -Continue Plavix and asa -continue guideline directed medical therapy -cardiology consultation: Recommendations reviewed -Nephrology consult: Recommendations reviewed -PUD/DVT prophylaxis -repeat labs in a.m. Total time spent with patient discussing and formulating plan of care: 45 minutes. This does not include time spent performing procedures. This medical document was created using an electronic medical record system with [employer] dictation system. Although this document has been carefully reviewed, there may still be some phonetic and typographical errors. These areas are purely typographical due to imperfections of the software programs, and do not reflect any compromise in the patient's medical care. Plan discussed with: Patient, Other (RN) My Orders Orders - AURELIO ZAMARRIPA NP Procedure Category Date Status Time D/C Mayo MAYRA 12/08/24 In Process 10:35 Basic Metabolic Panel LAB 12/09/24 Verified 04:00 Magnesium LAB 12/09/24 Verified 04:00 Chest Xray 1 View XY 12/08/24 Logged 10:35 Date of Service: Dec 08, 2024 Billing Provider: AURELIO ZAMARRIPA NP Common Visit Codes: [id number] INP/OBS CARE(HIGH) AURELIO ZAMARRIPA NP Dec 08, 2024 11:13
--- NOTE | 2024-12-08 12:44 | DVH ---
EXAM: XY CHEST XRAY 1 VIEW Indication: CHF Technique: Single frontal view of the chest was obtained Comparison: XY CHEST PORTABLE on DOS: 12/03/24, XY CHEST PORTABLE on DOS: 12/02/24, XY CHEST PORTABLE o n DOS: 12/01/24, XY CHEST PORTABLE on DOS: 11/30/24, XY CHEST XRAY 1 VIEW on DOS: 11/29/24 FINDINGS: Lines and Tubes: Right PICC tip projects over the superior vena cava. Lungs: No focal consolidation. Pleura: No effusion. No pneumothorax. Cardiomediastinal contours: Unremarkable Bones: No acute osseous abnormality. IMPRESSION: No acute cardiopulmonary disease.
--- NOTE | 2024-12-08 20:01 | DVHPN2 ---
Progress Note - Dictate Date Seen: Dec 08, 2024 Medical Necessity Reason Pt with a Central, PICC or Fol: No Subjective Patient was seen and evaluated in follow up. Patient is on 2 LPM NC. Patient is resting in bed. Patient is scheduled for Impella device assisted high-risk PCI with Dr. Beatty on . Telemetry reviewed. vital signs Vital Sign Date Time Temp Pulse Resp B/P (MAP) Pulse Ox O2 Delivery O2 Flow Rate FiO2 12/08/24 17:00 97.9 91 18 124/82 (96) 93 97.9 12/08/24 08:10 Nasal Cannula* 2 28 Total Intake and Output 12/07/24 12/07/24 12/08/24 15:00 23:00 07:00 Intake Total 480 ml 0 ml Output Total 800 ml Balance 480 ml -800 ml 0 ml medications Current Medications Medications Dose Ordered Sig/Dona Route Start Time Stop Time Status Last Admin Dose Admin Ondansetron HCl 4 mg Q4HP PRN IV 11/19/24 08:45 Docusate Sodium 100 mg BIDPRN PRN PO 11/19/24 08:45 Acetaminophen 650 mg Q6HP PRN PO 11/19/24 08:45 11/28/24 14:14 650 MG Nitroglycerin 0.4 mg Q5MINP PRN SL 11/19/24 08:45 Sodium Chloride 10 ml QSHIFT@ IV 11/25/24 22:00 12/08/24 10:06 10 ML Bisacodyl 10 mg DAILYP PRN [place] 12/01/24 07:30 Morphine Sulfate 1 mg Q3HP PRN IV 11/30/24 14:15 11/30/24 14:29 1 MG Empaglifozin 10 mg DAILY PO 12/02/24 10:00 12/08/24 10:06 10 MG Pantoprazole Sodium 40 mg DAILY@0600 PO 12/03/24 06:00 12/07/24 05:29 40 MG Clopidogrel Bisulfate 75 mg DAILY PO 12/03/24 10:00 12/08/24 10:06 75 MG Aspirin 81 mg DAILY PO 12/02/24 10:00 12/08/24 10:06 81 MG Nicotine 1 patch DAILY TD 12/03/24 10:00 12/08/24 10:08 1 PATCH Sacubitril/ Valsartan 0.5 tab BID PO 12/03/24 10:00 12/08/24 10:06 0.5 TAB Potassium Bicarbonate 25 meq DAILY PO 12/03/24 10:00 12/08/24 10:06 25 MEQ Atorvastatin Calcium 40 mg HS PO 12/05/24 22:00 12/07/24 21:54 40 MG objective GENERAL: Alert and oriented x 3. No acute distress. EYES: PERRL, EOMI. Anicteric. HENT: Moist mucous membranes. LUNGS: Decreased breath sounds. CARDIOVASCULAR: Regular rate and rhythm. ABDOMEN: Soft, nontender and nondistended. EXTREMITIES: No edema. NEUROLOGIC: No focal neurological deficits. SKIN: Warm, dry. laboratory and microbiology Laboratory Tests 12/04/24 09:09 12/03/24 01:08 Test 12/04/24 09:09 Range/Units Serum Glucose 136 H 74-106 mg/dL Problem List CAD ischemic cardiomyopathy. Cardiopulmonary arrest status post CPR with ROSC. Mixed shock, cardiogenic versus septic. [place], decompensated HFrEF, NYHA class IV. NSTEMI, with severe coronary artery disease. Moderate tricuspid valve regurgitation. Acute hypoxic respiratory failure. Acute kidney injury. Bacteremia. Hyperkalemia, resolved. Shock liver. History of methamphetamine use. Assessment/Plan Continued all current supportive medical care. Aspirin, Lipitor, Plavix. Diuretics with Lasix. Morphine for pain management. Nitro SL. GI prophylactics. Entresto. Additional plan as per the hospital course. Dietary Evaluation Review Comments: Nutrition Recommendation: 1) TF Jevity 1.2Cal @ 70ml/hr x 24hr (goal rate) along with Pro-stat 1 pk daily. Start @ 20ml/hr, increase 10ml/hr Q4H until goal is reached. TF @ goal volume along with Pro-stat & Propofol provide 2116 kcal (100% energy needs), 108 gm protein (100% protein needs), 1356 ml free water. 2) Water flush 190 ml Q6H if allowed, adjust PRN 3) TPN if NPO >7 days 4) Monitor NPO status, lab values, wt trend, I/O Expected Outcomes/Goals: To meet >75% estimated needs Lab values to improve Fu 2-3 days Plan discussed with: Patient SULAIMAN MALLOY MD Dec 08, 2024 20:01
--- NOTE | 2024-12-08 21:48 | DVHPN2 ---
[facility] LUNG CENTER DOS: 12/08/2024 Patient seen and examined at bedside. Remains on supplemental oxygen. Overnight events reviewed. HPI: A 69-year-old man with PMHx of hypertension and methamphetamine abuse who came to the ER on 11/19/24 for evaluation of shortness of breath. Per ER documentation, patient presented with complaints of shortness of breath x 1 week. While in the ER he was given a breathing treatment and placed on oxygen. He continued to have shortness of breath, increased work of breathing, and anxiety. He was placed on BiPAP, not tolerating due to anxiety. He subsequently had a cardiac arrest while in the ER, achieved ROSC and patient was intubated and placed on mechanical ventilator. He was admitted for further care. Pulmonary consultation is requested for evaluation and management d/t acute hypoxic respiratory failure requiring mechanical ventilator Past Medical History: Hypertension, methamphetamine abuse (per ER records). Past Surgical History: Unable to obtain Medications: Reviewed. Allergies: No known drug allergies. Family History: No family history of premature CAD. No family history of lung disorders. Social History: Nonsmoker. No alcohol use. Hx of methamphetamine abuse. Reviewed: Care Plan, H&P, Labs, Medications, Previous Orders, Radiology Changes from previous H/P or p: No Changes General: Per HPI Objective Vitals Vital Signs Date Time Temp Pulse Resp B/P (MAP) Pulse Ox O2 Delivery O2 Flow Rate FiO2 12/08/24 20:41 97.8 95 16 98/72 (81) 97 97.8 12/08/24 08:10 Nasal Cannula* 2 28 Intake/Output Intake and Output 12/08/24 07:00 Intake Total 480 ml Output Total 800 ml Balance -320 ml Intake Oral 480 ml Output Urine Total 800 ml # Bowel Movements 2 General Appearance: Alert, Oriented X3, Cooperative, No acute distress HEENT: Atraumatic Lungs: Other (FEW CRACKLES B LUNGS) Cardiovascular: Regular rate Abdomen: Normal bowel sounds, Soft, No tenderness Musculoskeletal: Normal sensory function, Normal motor function Neuro: Strength at 5/5 X4 ext, Cranial nerves 3-12 NL Skin: Dry, Intact, Warm Psych/Mental Status: Mental status NL, Mood NL Medications Current Medications Medications Dose Ordered Sig/Dona Route Start Time Stop Time Status Last Admin Dose Admin Ondansetron HCl 4 mg Q4HP PRN IV 11/19/24 08:45 Docusate Sodium 100 mg BIDPRN PRN PO 11/19/24 08:45 Acetaminophen 650 mg Q6HP PRN PO 11/19/24 08:45 11/28/24 14:14 650 MG Nitroglycerin 0.4 mg Q5MINP PRN SL 11/19/24 08:45 Sodium Chloride 10 ml QSHIFT@ IV 11/25/24 22:00 12/08/24 10:06 10 ML Bisacodyl 10 mg DAILYP PRN [place] 12/01/24 07:30 Morphine Sulfate 1 mg Q3HP PRN IV 11/30/24 14:15 11/30/24 14:29 1 MG Empaglifozin 10 mg DAILY PO 12/02/24 10:00 12/08/24 10:06 10 MG Pantoprazole Sodium 40 mg DAILY@0600 PO 12/03/24 06:00 12/07/24 05:29 40 MG Clopidogrel Bisulfate 75 mg DAILY PO 12/03/24 10:00 12/08/24 10:06 75 MG Aspirin 81 mg DAILY PO 12/02/24 10:00 12/08/24 10:06 81 MG Nicotine 1 patch DAILY TD 12/03/24 10:00 12/08/24 10:08 1 PATCH Sacubitril/ Valsartan 0.5 tab BID PO 12/03/24 10:00 12/08/24 10:06 0.5 TAB Potassium Bicarbonate 25 meq DAILY PO 12/03/24 10:00 12/08/24 10:06 25 MEQ Atorvastatin Calcium 40 mg HS PO 12/05/24 22:00 12/07/24 21:54 40 MG Laboratory Results Laboratory Tests 12/03/24 01:08 12/04/24 09:09 Urinalysis Test 11/19/24 08:35 Urine Color Yellow (Yellow) Urine Clarity Clear (Clear) Urine pH 5.5 (5.0-9.0) Urine Specific [place] 1.017 (1.001-1.035) Urine Protein 1+ (Negative) H Urine Ketones Negative (Negative) Urine Blood 2+ /uL (Negative) H Urine Nitrite Negative (Negative) Urine Bilirubin Negative (Negative) Urine Urobilinogen Normal mg/dL (Negative) Urine Leukocyte Esterase Negative /uL (Negative) Urine RBC 33 /hpf (0 - 3) Urine Microscopic WBC 6 /HPF (0-3) H Urine Squamous Epithelial Cells Few /hpf (<5) Urine Bacteria None seen /hpf (None Seen) Urine Osmolality 518 mOsm/kg Urine Creatinine 104.97 mg/dL (30.0-125.0) Urine Protein/Creatinine Ratio 1.03 Urine Sodium 21 mmol/L (40-220) L Urine Glucose Normal mg/dL (Normal) Urine Total Protein 108.6 mg/dL (1-14) H Microbiology Microbiology Date/Time Source Procedure Growth Status 11/23/24 09:12 Blood Blood Culture - Final NO GROWTH AFTER 5 DAYS OF INCUBATION. Complete 11/20/24 04:00 Nose MRSA Screen - Final Complete 11/19/24 09:42 Sputum Expectorated Sputum Gram Stain - Final Complete 11/19/24 09:42 Respiratory Culture - Final Streptococcus Group B Complete Assessment/Plan Assessment/Plan Impression: Acute hypoxic respiratory failure Chronic hypercarbic respiratory failure, PaCO2 63 mmHg. Dependence on supplemental oxygen Hyperkalemia Acute decompensated Heart Failure Acute kidney Injury Methamphetamine use Marijuana use Aspiration Hepatitis C Events: Remains on supplemental oxygen On 2 LPM NC Taper O2 as tolerated Improved O2 requirements CXR today shows no acute cardiopulmonary abnormality. Head of bed elevation Aspiration precautions Monitor closely d/t high risk of aspiration Bronchodilators PRN Incentive spirometry Maintain euvolemia with Lasix q. daily Monitor renal function Monitor electrolytes. Supplement as necessary. Potassium supplementation Protonix for GI ppx Continue NRT. Disposition per hospitalist. Labs and imaging reviewed. Rest of plan as noted below. Plan: s/p extubation on 11/30/24 Continue supplemental oxygen Titrate to keep O2 saturation above 92%. Taper O2 as tolerated Pressors if necessary for hemodynamic support. Titrate to keep MAP above 65 mmHg/SBP above 90 mmHg. Completed antibiotics. Bronchodilators PRN On Plavix Entresto Monitor renal function due to acute kidney injury. Diurese to euvolemia Monitor electrolytes. Supplement as necessary. Hypokalemia, supplement Nutritional support. Accucheks, ISS. GI/DVT prophylaxis. Prognosis: Poor given multiple comorbidities. Rest of plan per hospitalist and other consultants. Thank you for allowing me to participate in this patient's care. Further recommendations will depend on patient's clinical course. Please do not hesitate to contact me if you have any questions or concerns. This medical document was created using an electronic medical record system with Dragon computerized dictation system. Although this document has been carefully reviewed, there may still be some phonetic and typographical errors. These areas are purely typographical due to imperfections of the software programs, and do not reflect any compromise in the patient's medical care. Plan discussed with: Other (SELMA Rocha) Date of Service: Dec 08, 2024 Billing Provider: JHONY GARIBAY MD Common Visit Codes: [id number] INP/OBS CARE(HIGH) JHONY GARIBAY MD Dec 08, 2024 21:48
[2024-12-08] MEDS ORDERED: MELATONIN 5 MG TAB PO ONE (22:00)
[2024-12-09] VITALS (7 sets, daily range): BP systolic 97–117; BP diastolic 68–77; PULSE 74–91; RESP 14–20; TEMP 97.4–98.6; O2SAT 95–98
[2024-12-09 06:32] LABS: Anion Gap 9 (5-15); Carbon Dioxide 29 mmol/L (20-31); Chloride 100 mmol/L (98-107); Potassium 3.9 mmol/L (3.5-5.1); Sodium 138 mmol/L (136-145)
[2024-12-09 06:34] LABS: Calcium 9.3 mg/dL (8.7-10.4)
[2024-12-09 06:38] LABS: Glucose 96 mg/dL (74-106)
[2024-12-09 06:39] LABS: BUN/Creatinine Ratio 15.7 (10.0-20.0); Blood Urea Nitrogen 13 mg/dL (9-23); Magnesium 1.9 mg/dL (1.6-2.6)
--- NOTE | 2024-12-09 11:01 | DVHPN2 ---
Subjective Patient more alert. Denies any symptoms. Reviewed: Care Plan, H&P, Labs, Medications, Previous Orders, Radiology Changes from previous H/P or p: No Changes General: Per HPI Objective Vitals Vital Signs Date Time Temp Pulse Resp B/P (MAP) Pulse Ox O2 Delivery O2 Flow Rate FiO2 12/09/24 09:00 98.0 84 14 104/72 (83) 95 98.0 12/08/24 20:00 Nasal Cannula* 4 36 Intake/Output Intake and Output 12/09/24 07:00 Intake Total 2040 ml Output Total 2100 ml Balance -60 ml Intake Oral 2040 ml Output Urine Total 2100 ml # Bowel Movements 1 General Appearance: Alert, Oriented X3, Cooperative, No acute distress HEENT: Atraumatic Lungs: Other (FEW CRACKLES B LUNGS) Cardiovascular: Regular rate Abdomen: Normal bowel sounds, Soft, No tenderness Musculoskeletal: Normal sensory function, Normal motor function Neuro: Strength at 5/5 X4 ext, Cranial nerves 3-12 NL Skin: Dry, Intact, Warm Psych/Mental Status: Mental status NL, Mood NL Medications Current Medications Medications Dose Ordered Sig/Dona Route Start Time Stop Time Status Last Admin Dose Admin Ondansetron HCl 4 mg Q4HP PRN IV 11/19/24 08:45 Docusate Sodium 100 mg BIDPRN PRN PO 11/19/24 08:45 Acetaminophen 650 mg Q6HP PRN PO 11/19/24 08:45 11/28/24 14:14 650 MG Nitroglycerin 0.4 mg Q5MINP PRN SL 11/19/24 08:45 Sodium Chloride 10 ml QSHIFT@ IV 11/25/24 22:00 12/09/24 09:37 10 ML Bisacodyl 10 mg DAILYP PRN [place] 12/01/24 07:30 Morphine Sulfate 1 mg Q3HP PRN IV 11/30/24 14:15 11/30/24 14:29 1 MG Empaglifozin 10 mg DAILY PO 12/02/24 10:00 12/09/24 09:36 10 MG Pantoprazole Sodium 40 mg DAILY@0600 PO 12/03/24 06:00 12/09/24 05:37 40 MG Clopidogrel Bisulfate 75 mg DAILY PO 12/03/24 10:00 12/09/24 09:37 75 MG Aspirin 81 mg DAILY PO 12/02/24 10:00 12/09/24 09:37 81 MG Nicotine 1 patch DAILY TD 12/03/24 10:00 12/09/24 09:40 1 PATCH Sacubitril/ Valsartan 0.5 tab BID PO 12/03/24 10:00 12/09/24 09:36 0.5 TAB Potassium Bicarbonate 25 meq DAILY PO 12/03/24 10:00 12/09/24 09:37 25 MEQ Atorvastatin Calcium 40 mg HS PO 12/05/24 22:00 12/08/24 22:10 40 MG Laboratory Results Laboratory Tests 12/03/24 01:08 12/09/24 05:54 Chemistry Test 12/09/24 05:54 Calcium Level 9.3 mg/dL (8.7-10.4) Magnesium Level 1.9 mg/dL (1.6-2.6) Urinalysis Test 11/19/24 08:35 Urine Color Yellow (Yellow) Urine Clarity Clear (Clear) Urine pH 5.5 (5.0-9.0) Urine Specific [place] 1.017 (1.001-1.035) Urine Protein 1+ (Negative) H Urine Ketones Negative (Negative) Urine Blood 2+ /uL (Negative) H Urine Nitrite Negative (Negative) Urine Bilirubin Negative (Negative) Urine Urobilinogen Normal mg/dL (Negative) Urine Leukocyte Esterase Negative /uL (Negative) Urine RBC 33 /hpf (0 - 3) Urine Microscopic WBC 6 /HPF (0-3) H Urine Squamous Epithelial Cells Few /hpf (<5) Urine Bacteria None seen /hpf (None Seen) Urine Osmolality 518 mOsm/kg Urine Creatinine 104.97 mg/dL (30.0-125.0) Urine Protein/Creatinine Ratio 1.03 Urine Sodium 21 mmol/L (40-220) L Urine Glucose Normal mg/dL (Normal) Urine Total Protein 108.6 mg/dL (1-14) H Microbiology Microbiology Date/Time Source Procedure Growth Status 11/23/24 09:12 Blood Blood Culture - Final NO GROWTH AFTER 5 DAYS OF INCUBATION. Complete 11/20/24 04:00 Nose MRSA Screen - Final Complete 11/19/24 09:42 Sputum Expectorated Sputum Gram Stain - Final Complete 11/19/24 09:42 Respiratory Culture - Final Streptococcus Group B Complete Labs and/or images reviewed: Labs reviewed by me, Image(s) reviewed by me Assessment/Plan Assessment/Plan Impression: -S/P cardiopulmonary arrest -Acute Hypoxic Respiratory Failure -Acute Decompensated Heart Failure -Hyperkalemia -Acute Kidney Injury/ VMN -Cardiogenic shock -Hx of Amphetamine use -NSTEMI type II -aspiration pneumonia -acute delirium Plan: Events: No events overnight. Plans for PTCA to LAD and RCA tomorrow. -O2 supplementation to keep saturation greater than 92% -stop potassium supplementation -Continue Plavix and asa -continue guideline directed medical therapy -cardiology consultation: Recommendations reviewed -PUD/DVT prophylaxis Total time spent with patient discussing and formulating plan of care: 45 minutes. This does not include time spent performing procedures. This medical document was created using an electronic medical record system with [employer] dictation system. Although this document has been carefully reviewed, there may still be some phonetic and typographical errors. These areas are purely typographical due to imperfections of the software programs, and do not reflect any compromise in the patient's medical care. Plan discussed with: Patient, Other (Rn) My Orders Orders - AURELIO ZAMARRIPA NP Procedure Category Date Status Time Temazepam (Restoril) PHA 12/09/24 Verified 11:00 Date of Service: Dec 09, 2024 Billing Provider: AURELIO ZAMARRIPA NP Common Visit Codes: [id number] INP/OBS CARE(HIGH) AURELIO ZAMARRIPA NP Dec 09, 2024 11:01
--- NOTE | 2024-12-09 19:13 | DVHPN2 ---
[facility] DOS: 12/09/2024 Patient seen and examined at bedside. Breathing comfortably on room air Overnight events reviewed. HPI: A 69-year-old man with PMHx of hypertension and methamphetamine abuse who came to the ER on 11/19/24 for evaluation of shortness of breath. Per ER documentation, patient presented with complaints of shortness of breath x 1 week. While in the ER he was given a breathing treatment and placed on oxygen. He continued to have shortness of breath, increased work of breathing, and anxiety. He was placed on BiPAP, not tolerating due to anxiety. He subsequently had a cardiac arrest while in the ER, achieved ROSC and patient was intubated and placed on mechanical ventilator. He was admitted for further care. Pulmonary consultation is requested for evaluation and management d/t acute hypoxic respiratory failure requiring mechanical ventilator Past Medical History: Hypertension, methamphetamine abuse (per ER records). Past Surgical History: Unable to obtain Medications: Reviewed. Allergies: No known drug allergies. Family History: No family history of premature CAD. No family history of lung disorders. Social History: Nonsmoker. No alcohol use. Hx of methamphetamine abuse. Reviewed: Care Plan, H&P, Labs, Medications, Previous Orders, Radiology Changes from previous H/P or p: Changes General: Per HPI Objective Vitals Vital Signs Date Time Temp Pulse Resp B/P (MAP) Pulse Ox O2 Delivery O2 Flow Rate FiO2 12/09/24 17:00 98.1 88 18 117/77 (90) 96 98.1 12/09/24 08:00 Room Air* 0 21 Intake/Output Intake and Output 12/09/24 07:00 Intake Total 2040 ml Output Total 2100 ml Balance -60 ml Intake Oral 2040 ml Output Urine Total 2100 ml # Bowel Movements 1 General Appearance: Alert, Oriented X3, Cooperative, No acute distress HEENT: Atraumatic Lungs: Other (FEW CRACKLES B LUNGS) Cardiovascular: Regular rate Abdomen: Normal bowel sounds, Soft, No tenderness Musculoskeletal: Normal sensory function, Normal motor function Neuro: Strength at 5/5 X4 ext, Cranial nerves 3-12 NL Skin: Dry, Intact, Warm Psych/Mental Status: Mental status NL, Mood NL Medications Current Medications Medications Dose Ordered Sig/Dona Route Start Time Stop Time Status Last Admin Dose Admin Ondansetron HCl 4 mg Q4HP PRN IV 11/19/24 08:45 Docusate Sodium 100 mg BIDPRN PRN PO 11/19/24 08:45 Acetaminophen 650 mg Q6HP PRN PO 11/19/24 08:45 11/28/24 14:14 650 MG Nitroglycerin 0.4 mg Q5MINP PRN SL 11/19/24 08:45 Sodium Chloride 10 ml QSHIFT@, IV 11/25/24 22:00 12/09/24 09:37 10 ML Bisacodyl 10 mg DAILYP PRN [place] 12/01/24 07:30 Morphine Sulfate 1 mg Q3HP PRN IV 11/30/24 14:15 11/30/24 14:29 1 MG Empaglifozin 10 mg DAILY PO 12/02/24 10:00 12/09/24 09:36 10 MG Pantoprazole Sodium 40 mg DAILY@0600 PO 12/03/24 06:00 12/09/24 05:37 40 MG Clopidogrel Bisulfate 75 mg DAILY PO 12/03/24 10:00 12/09/24 09:37 75 MG Aspirin 81 mg DAILY PO 12/02/24 10:00 12/09/24 09:37 81 MG Nicotine 1 patch DAILY TD 12/03/24 10:00 12/09/24 09:40 1 PATCH Sacubitril/ Valsartan 0.5 tab BID PO 12/03/24 10:00 12/09/24 09:36 0.5 TAB Atorvastatin Calcium 40 mg HS PO 12/05/24 22:00 12/08/24 22:10 40 MG Temazepam 15 mg HSPRN PRN PO 12/09/24 11:00 Laboratory Results Laboratory Tests 12/03/24 01:08 12/09/24 05:54 Chemistry Test 12/09/24 05:54 Calcium Level 9.3 mg/dL (8.7-10.4) Magnesium Level 1.9 mg/dL (1.6-2.6) Urinalysis Test 11/19/24 08:35 Urine Color Yellow (Yellow) Urine Clarity Clear (Clear) Urine pH 5.5 (5.0-9.0) Urine Specific [place] 1.017 (1.001-1.035) Urine Protein 1+ (Negative) H Urine Ketones Negative (Negative) Urine Blood 2+ /uL (Negative) H Urine Nitrite Negative (Negative) Urine Bilirubin Negative (Negative) Urine Urobilinogen Normal mg/dL (Negative) Urine Leukocyte Esterase Negative /uL (Negative) Urine RBC 33 /hpf (0 - 3) Urine Microscopic WBC 6 /HPF (0-3) H Urine Squamous Epithelial Cells Few /hpf (<5) Urine Bacteria None seen /hpf (None Seen) Urine Osmolality 518 mOsm/kg Urine Creatinine 104.97 mg/dL (30.0-125.0) Urine Protein/Creatinine Ratio 1.03 Urine Sodium 21 mmol/L (40-220) L Urine Glucose Normal mg/dL (Normal) Urine Total Protein 108.6 mg/dL (1-14) H Microbiology Microbiology Date/Time Source Procedure Growth Status 11/23/24 09:12 Blood Blood Culture - Final NO GROWTH AFTER 5 DAYS OF INCUBATION. Complete 11/20/24 04:00 Nose MRSA Screen - Final Complete 11/19/24 09:42 Sputum Expectorated Sputum Gram Stain - Final Complete 11/19/24 09:42 Respiratory Culture - Final Streptococcus Group B Complete Assessment/Plan Assessment/Plan Impression: Acute hypoxic respiratory failure Chronic hypercarbic respiratory failure, PaCO2 63 mmHg. Dependence on supplemental oxygen Hyperkalemia Acute decompensated Heart Failure Acute kidney Injury Methamphetamine use Marijuana use Aspiration Hepatitis C Events: Improved O2 requirements Breathing on room air Supplemental oxygen PRN Continue antibiotics Continue bronchodilators Incentive spirometry Follow up Cardiology recs Plan for heart catheterization tomorrow. Monitor renal function Monitor electrolytes. Supplement as necessary. Potassium supplementation Protonix for GI ppx Continue NRT. Head of bed elevation Aspiration precautions Monitor closely d/t high risk of aspiration Disposition per hospitalist. Labs and imaging reviewed. Rest of plan as noted below. Plan: s/p extubation on 11/30/24 Supplemental oxygen PRN Titrate to keep O2 saturation above 92%. Pressors if necessary for hemodynamic support. Titrate to keep MAP above 65 mmHg/SBP above 90 mmHg. Antibiotics. Bronchodilators PRN On Plavix Entresto Monitor renal function due to acute kidney injury. Monitor electrolytes. Supplement as necessary. Hypokalemia, supplement Maintain euvolemia Nutritional support. Accucheks, ISS. GI/DVT prophylaxis. Prognosis: Poor given multiple comorbidities. Rest of plan per hospitalist and other consultants. Thank you for allowing me to participate in this patient's care. Further recommendations will depend on patient's clinical course. Please do not hesitate to contact me if you have any questions or concerns. This medical document was created using an electronic medical record system with [employer] dictation system. Although this document has been carefully reviewed, there may still be some phonetic and typographical errors. These areas are purely typographical due to imperfections of the software programs, and do not reflect any compromise in the patient's medical care. Plan discussed with: Other (SELMA Jensen) Visit Coding Pulmonary Billing Provider: JHONY GARIBAY MD Date of Service if different f: Dec 09, 2024 Common Visit Codes: [id number] INP/OBS CARE(HIGH) JHONY GARIBAY MD Dec 09, 2024 19:13
--- NOTE | 2024-12-09 23:56 | DVHPN2 ---
Progress Note - Dictate Date Seen: Dec 09, 2024 Medical Necessity Reason Pt with a Central, PICC or Fol: No Subjective Patient was seen and evaluated in follow up. No overnight events. Patient is stable on room air. Patient is scheduled for Impella device assisted high-risk PCI with Dr. Beatty tomorrow. Telemetry reviewed. vital signs Vital Sign Date Time Temp Pulse Resp B/P (MAP) Pulse Ox O2 Delivery O2 Flow Rate FiO2 12/09/24 21:00 98.2 85 20 97/68 (78) 97 98.2 12/09/24 20:00 Room Air* 0 21 Total Intake and Output 12/08/24 12/08/24 12/09/24 15:00 23:00 07:00 Intake Total 480 ml 1280 ml 280 ml Output Total 1800 ml 300 ml Balance 480 ml -520 ml -20 ml medications Current Medications Medications Dose Ordered Sig/Dona Route Start Time Stop Time Status Last Admin Dose Admin Ondansetron HCl 4 mg Q4HP PRN IV 11/19/24 08:45 Docusate Sodium 100 mg BIDPRN PRN PO 11/19/24 08:45 Acetaminophen 650 mg Q6HP PRN PO 11/19/24 08:45 11/28/24 14:14 650 MG Nitroglycerin 0.4 mg Q5MINP PRN SL 11/19/24 08:45 Sodium Chloride 10 ml QSHIFT@10,22 IV 11/25/24 22:00 12/09/24 21:46 10 ML Bisacodyl 10 mg DAILYP PRN [place] 12/01/24 07:30 Morphine Sulfate 1 mg Q3HP PRN IV 11/30/24 14:15 11/30/24 14:29 1 MG Empaglifozin 10 mg DAILY PO 12/02/24 10:00 12/09/24 09:36 10 MG Pantoprazole Sodium 40 mg DAILY@0600 PO 12/03/24 06:00 12/09/24 05:37 40 MG Clopidogrel Bisulfate 75 mg DAILY PO 12/03/24 10:00 12/09/24 09:37 75 MG Aspirin 81 mg DAILY PO 12/02/24 10:00 12/09/24 09:37 81 MG Nicotine 1 patch DAILY TD 12/03/24 10:00 12/09/24 09:40 1 PATCH Sacubitril/ Valsartan 0.5 tab BID PO 12/03/24 10:00 12/09/24 21:46 0.5 TAB Atorvastatin Calcium 40 mg HS PO 12/05/24 22:00 12/09/24 21:46 40 MG Temazepam 15 mg HSPRN PRN PO 12/09/24 11:00 objective GENERAL: Alert and oriented x 3. No acute distress. EYES: PERRL, EOMI. Anicteric. HENT: Moist mucous membranes. LUNGS: Decreased breath sounds. CARDIOVASCULAR: Regular rate and rhythm. ABDOMEN: Soft, nontender and nondistended. EXTREMITIES: No edema. NEUROLOGIC: No focal neurological deficits. SKIN: Warm, dry. laboratory and microbiology Laboratory Tests 12/09/24 05:54 12/03/24 01:08 Test 12/09/24 05:54 Range/Units Serum Glucose 96 74-106 mg/dL Problem List CAD ischemic cardiomyopathy. Cardiopulmonary arrest status post CPR with ROSC. Mixed shock, cardiogenic versus septic. [place], decompensated HFrEF, NYHA class IV. NSTEMI, with severe coronary artery disease. Moderate tricuspid valve regurgitation. Acute hypoxic respiratory failure. Acute kidney injury. Bacteremia. Hyperkalemia, resolved. Shock liver. History of methamphetamine use. Assessment/Plan Continued all current supportive medical care. Aspirin, Lipitor, Plavix. Diuretics with Lasix. Morphine for pain management. Nitro SL. GI prophylactics. Entresto. Additional plan as per the hospital course. Dietary Evaluation Review Comments: Nutrition Recommendation: 1) TF Jevity 1.2Cal @ 70ml/hr x 24hr (goal rate) along with Pro-stat 1 pk daily. Start @ 20ml/hr, increase 10ml/hr Q4H until goal is reached. TF @ goal volume along with Pro-stat & Propofol provide 2116 kcal (100% energy needs), 108 gm protein (100% protein needs), 1356 ml free water. 2) Water flush 190 ml Q6H if allowed, adjust PRN 3) TPN if NPO >7 days 4) Monitor NPO status, lab values, wt trend, I/O Expected Outcomes/Goals: To meet >75% estimated needs Lab values to improve Fu 2-3 days Plan discussed with: Patient SULAIMAN MALLOY MD Dec 09, 2024 23:56
[2024-12-10] VITALS (20 sets, daily range): BP systolic 88–147; BP diastolic 57–95; PULSE 84–113; RESP 12–24; TEMP 97.1–98.4; O2SAT 89–100
[2024-12-10 04:26] LABS: Urine Protein, UAD Negative (Negative)
--- NOTE | 2024-12-10 04:58 | DVH ---
CHEST RADIOGRAPH Indication: Procedure Technique: Single frontal view of the chest was obtained COMPARISON: XY CHEST XRAY 1 VIEW on DOS: 12/08/24, XY CHEST PORTABLE on DOS: 12/03/24, XY CHEST PORTABL E on DOS: 12/02/24, XY CHEST PORTABLE on DOS: 12/01/24, XY CHEST PORTABLE on DOS: 11/30/24 FINDINGS: Lines and Tubes: Right peripherally inserted central catheter unchanged. Lungs: Minimal left basilar atelectasis. The lungs are otherwise clear. Pleura: No effusion. No pneumothorax. Cardiomediastinal contours: Unremarkable Bones: Unremarkable IMPRESSION: 1. No acute cardiopulmonary disease. 2. Right PICC.
[2024-12-10 06:46] LABS: Hematocrit 42.8 % (41.0-53.0); Hemoglobin 14.6 g/dL (13.5-17.5); Mean Corpuscular Hemoglobin 30.7 pg (28.0-32.0); Mean Corpuscular Volume 89.8 fL (80.0-100.0); Nucleated Red Blood Cells % 0.2 %
[2024-12-10 07:19] LABS: INR 1.06 (0.9-1.15); Partial Thromboplastin Time 27.3 SEC (24.5-34.5); Prothrombin Time 11.2 sec (9.3-11.8)
[2024-12-10 09:17] LABS: Albumin 3.9 g/dL (3.2-4.8); Alkaline Phosphatase 85 U/L (46-116); Anion Gap 8 (5-15); BUN/Creatinine Ratio 15.3 (10.0-20.0); Bilirubin, Total 0.7 mg/dL (0.2-1.0); Blood Urea Nitrogen 13 mg/dL (9-23); Calcium 9.3 mg/dL (8.7-10.4); Carbon Dioxide 28 mmol/L (20-31); Chloride 103 mmol/L (98-107); Glucose 87 mg/dL (74-106); Potassium 4.3 mmol/L (3.5-5.1); Sodium 139 mmol/L (136-145); Total Protein 6.7 g/dL (5.7-8.2)
[2024-12-10 09:18] LABS: Alanine Aminotransferase 60 U/L (7-40)
--- NOTE | 2024-12-10 12:24 | DVHPN2 ---
Subjective Patient more alert. Denies any symptoms. Reviewed: Care Plan, H&P, Labs, Medications, Previous Orders, Radiology Changes from previous H/P or p: No Changes General: Per HPI Objective Vitals Vital Signs Date Time Temp Pulse Resp B/P (MAP) Pulse Ox O2 Delivery O2 Flow Rate FiO2 12/10/24 08:40 98.0 84 14 121/81 (94) 95 98.0 12/09/24 20:00 Room Air* 0 21 Intake/Output Intake and Output 12/10/24 07:00 Intake Total 1560 ml Output Total 500 ml Balance 1060 ml Intake Oral 1560 ml Output Urine Total 500 ml # Voids 3 # Bowel Movements 3 General Appearance: Alert, Oriented X3, Cooperative, No acute distress HEENT: Atraumatic, PERRLA Lungs: Other (FEW CRACKLES B LUNGS) Cardiovascular: Regular rate Abdomen: Normal bowel sounds, Soft, No tenderness Musculoskeletal: Normal sensory function, Normal motor function Neuro: Strength at 5/5 X4 ext, Cranial nerves 3-12 NL Skin: Dry, Intact, Warm Psych/Mental Status: Mental status NL, Mood NL Medications Current Medications Medications Dose Ordered Sig/Dona Route Start Time Stop Time Status Last Admin Dose Admin Ondansetron HCl 4 mg Q4HP PRN IV 11/19/24 08:45 Docusate Sodium 100 mg BIDPRN PRN PO 11/19/24 08:45 Acetaminophen 650 mg Q6HP PRN PO 11/19/24 08:45 11/28/24 14:14 650 MG Nitroglycerin 0.4 mg Q5MINP PRN SL 11/19/24 08:45 Sodium Chloride 10 ml QSHIFT@ IV 11/25/24 22:00 12/10/24 11:45 10 ML Bisacodyl 10 mg DAILYP PRN [place] 12/01/24 07:30 Morphine Sulfate 1 mg Q3HP PRN IV 11/30/24 14:15 11/30/24 14:29 1 MG Empaglifozin 10 mg DAILY PO 12/02/24 10:00 12/09/24 09:36 10 MG Pantoprazole Sodium 40 mg DAILY@0600 PO 12/03/24 06:00 12/10/24 05:20 40 MG Clopidogrel Bisulfate 75 mg DAILY PO 12/03/24 10:00 12/10/24 11:41 75 MG Aspirin 81 mg DAILY PO 12/02/24 10:00 12/10/24 11:39 81 MG Nicotine 1 patch DAILY TD 12/03/24 10:00 12/09/24 09:40 1 PATCH Sacubitril/ Valsartan 0.5 tab BID PO 12/03/24 10:00 12/10/24 11:39 0.5 TAB Atorvastatin Calcium 40 mg HS PO 12/05/24 22:00 12/09/24 21:46 40 MG Temazepam 15 mg HSPRN PRN PO 12/09/24 11:00 Laboratory Results Laboratory Tests 12/10/24 06:03 Chemistry Test 12/10/24 06:03 Albumin 3.9 g/dL (3.2-4.8) Calcium Level 9.3 mg/dL (8.7-10.4) Total Protein 6.7 g/dL (5.7-8.2) Coagulation Test 12/10/24 06:03 Prothrombin Time 11.2 sec (9.3-11.8) Prothrombin Time INR 1.06 (0.9-1.15) Activated Partial Thromboplast Time 27.3 SEC (24.5-34.5) LFT Test 12/10/24 06:03 Alanine Aminotransferase (ALT) 60 U/L (7-40) H Alkaline Phosphatase 85 U/L (46-116) Aspartate Amino Transferase (AST) 56 U/L (13-40) H Total Bilirubin 0.7 mg/dL (0.2-1.0) Urinalysis Test 11/19/24 08:35 12/10/24 04:00 Urine Osmolality 518 mOsm/kg Urine Creatinine 104.97 mg/dL (30.0-125.0) Urine Protein/Creatinine Ratio 1.03 Urine Sodium 21 mmol/L (40-220) L Urine Total Protein 108.6 mg/dL (1-14) H Urine Color Light-yellow (Yellow) Urine Clarity Clear (Clear) Urine pH 6.0 (5.0-9.0) Urine Specific [place] 1.012 (1.001-1.035) Urine Protein Negative (Negative) Urine Ketones Negative (Negative) Urine Blood Negative /uL (Negative) Urine Nitrite Negative (Negative) Urine Bilirubin Negative (Negative) Urine Urobilinogen Normal mg/dL (Negative) Urine Leukocyte Esterase Negative /uL (Negative) Urine RBC 1 /hpf (0 - 3) Urine Microscopic WBC 1 /HPF (0-3) Urine Squamous Epithelial Cells Few /hpf (<5) Urine Bacteria None seen /hpf (None Seen) Urine Glucose 4+ mg/dL (Normal) H Microbiology Microbiology Date/Time Source Procedure Growth Status 11/23/24 09:12 Blood Blood Culture - Final NO GROWTH AFTER 5 DAYS OF INCUBATION. Complete 11/20/24 04:00 Nose MRSA Screen - Final Complete 11/19/24 09:42 Sputum Expectorated Sputum Gram Stain - Final Complete 11/19/24 09:42 Respiratory Culture - Final Streptococcus Group B Complete Labs and/or images reviewed: Labs reviewed by me, Image(s) reviewed by me Assessment/Plan Assessment/Plan Impression: -S/P cardiopulmonary arrest -Acute Hypoxic Respiratory Failure -Acute Decompensated Heart Failure -Hyperkalemia -Acute Kidney Injury/ VMN -Cardiogenic shock -Hx of Amphetamine use -NSTEMI type II -aspiration pneumonia -acute delirium Plan: Events: No events overnight. Plans for PTCA to LAD and RCA today -O2 supplementation to keep saturation greater than 92% -Continue Plavix and asa -continue guideline directed medical therapy -cardiology consultation: Recommendations reviewed -PUD/DVT prophylaxis -Repeat labs in am. Total time spent with patient discussing and formulating plan of care: 45 minutes. This does not include time spent performing procedures. This medical document was created using an electronic medical record system with [employer] dictation system. Although this document has been carefully reviewed, there may still be some phonetic and typographical errors. These areas are purely typographical due to imperfections of the software programs, and do not reflect any compromise in the patient's medical care. Plan discussed with: Patient, Other (RN) My Orders Orders - AURELIO ZAMARRIPA NP Procedure Category Date Status Time Complete Blood Count LAB 12/11/24 Verified 04:00 Basic Metabolic Panel LAB 12/11/24 Verified 04:00 Date of Service: Dec 10, 2024 Billing Provider: AURELIO ZAMARRIPA NP Common Visit Codes: [id number] INP/OBS CARE(HIGH) AURELIO ZAMARRIPA NP Dec 10, 2024 12:23
[2024-12-10] MEDS: IODIXANOL 320MG/ML 100ML BTL IV ONE ×4 (12:27→15:53)
[2024-12-10] MEDS: HEPARIN IN NS 1000Units/500mL 1,500 ML ONE (12:27)
[2024-12-10] MEDS: ANGIOMAX 250 MG VIAL IV ONE ×2 (13:31→14:26)
[2024-12-10] MEDS: SODIUM CHL 0.9% 50 ML ONE ×2 (13:32→14:26)
[2024-12-10] MEDS: LIDOCAINE 2%HCL (LOCAL ANESTH.) INJ 20ML MDV ONE (13:32)
[2024-12-10] MEDS: fentaNYL CITRATE 100 MCG/2 ML VL ONE (13:32)
[2024-12-10] MEDS: MIDAZOLAM HCL 2MG/2ML 2ml VIAL (1mg/ml) ONE ×2 (13:32→14:39)
[2024-12-10] MEDS: ONDANSETRON HCL 4 MG/2 ML VIAL ONE (14:24)
[2024-12-10] MEDS: HYDROmorphone HCL 2 MG/ML VL/or syr ONE (14:37)
--- NOTE | 2024-12-10 19:42 | DVHOP2 ---
Operative Report - 2 Report Details Date: 12/10/24 Preop Diagnosis: CAD Postop Diagnosis: CAD ischemic cardiomyopathy Surgeon: Janet Beatty MD Anesthesiologist: No anesthesia given Anesthesia: Mac, Local (No anesthesia given) Consent: The patient was informed of the risks and benefits of the procedure. These include but are not limited to complications of anesthesia, postoperative infection, incomplete relief of symptoms, recurrence of symptoms, damage to blood vessels, nerves and tendons, deep venous thrombosis, pulmonary embolism and possible need for repeat surgery in the future. Complications: No complications Findings: Occluded LAD. Successful aperture postprocedure. Indications for Surgery: Congestive heart failure. Cardiomyopathy. Significant three-vessel disease with severe ischemia. Viable myocardial tissue per dobutamine echocardiogram. Name of Procedure Performed Angiographic evaluation of left main. PTCA and stenting of left anterior descending coronary artery and diagonal artery bifurcation. Aperture of chronic total occlusion of the left anterior descending coronary artery. Placement of Impella device for high-risk angioplasty. Removal of Impella device Perclose closure right femoral artery. Procedure Details Procedure Details: Prior local anesthesia with 2% lidocaine to the right groin and full informed consent obtained the patient was prepped and draped in usual fashion followed by placement of a six Nigerian sheath subsequent to which we placed two Perclose devices. We then dilated to a 10 Nigerian sheath for purposes of placing a Impella catheter. Placed an Impella device into the right femoral artery and into the left ventricle. We then the same sheath we placed a seven Nigerian Levi sheath into the right femoral artery within the previously placed sheath. We were able to use a run-through wire and a whisper wire to enter the diagonal vessel. With a ninja catheter we were able to enter the chronic total occlusion using a Specter wire. We then placed a choice PT extra-support and dilated with a two five noncompliant balloon. We performed intravascular ultrasound and placed a 3-0 by 18 mm stent into the proximal LAD kissing balloon technique into the diagonal vessels. We did a DK crush on the diagonal vessel stent overlapping it with the LAD stent. There was excellent flow. We post dilated the LAD at high pressures with a three five balloon. After obtaining adequate flow and aperture of the LAD we then pulled the Impella device and with the two previously placed Perclose devices able to obtain hemostasis of the femoral artery. Patient tolerated the procedure well there were no complications. A staged procedure will be performed with the RCA in the near future. Condition Guarded Disposition Still a Patient Date of Service: Dec 10, 2024 Billing Provider: JANET BEATTY Sr., MD Cardiology Common Codes: 98690-THPNVML INP/OBS CARE (High) Cardiology Procedure Codes: 97269 -PTCA W/STENT PLACEMENT (Impella device placement for high-risk angioplasty severe ischemic cardiomyopathy and congestive heart failure.), 18329-BWTC HEART CATH W/INTRA INJ JANET BEATTY Sr., MD Dec 10, 2024 19:42
[2024-12-10] MEDS: TEMAZEPAM 15 MG CAP PO PRN (21:35)
--- NOTE | 2024-12-10 21:46 | DVHPN2 ---
[facility] LUNG CENTER DOS: 12/10/2024 Patient seen and examined at bedside. Breathing comfortably on room air Overnight events reviewed. HPI: A 69-year-old man with PMHx of hypertension and methamphetamine abuse who came to the ER on 11/19/24 for evaluation of shortness of breath. Per ER documentation, patient presented with complaints of shortness of breath x 1 week. While in the ER he was given a breathing treatment and placed on oxygen. He continued to have shortness of breath, increased work of breathing, and anxiety. He was placed on BiPAP, not tolerating due to anxiety. He subsequently had a cardiac arrest while in the ER, achieved ROSC and patient was intubated and placed on mechanical ventilator. He was admitted for further care. Pulmonary consultation is requested for evaluation and management d/t acute hypoxic respiratory failure requiring mechanical ventilator Past Medical History: Hypertension, methamphetamine abuse (per ER records). Past Surgical History: Unable to obtain Medications: Reviewed. Allergies: No known drug allergies. Family History: No family history of premature CAD. No family history of lung disorders. Social History: Nonsmoker. No alcohol use. Hx of methamphetamine abuse. Reviewed: Care Plan, H&P, Labs, Medications, Previous Orders, Radiology Changes from previous H/P or p: No Changes General: Per HPI Objective Vitals Vital Signs Date Time Temp Pulse Resp B/P (MAP) Pulse Ox O2 Delivery O2 Flow Rate FiO2 12/10/24 20:00 100 12 98 Nasal Cannula* 2 28 12/10/24 20:00 97.7 94/61 (72) 97.7 Intake/Output Intake and Output 12/10/24 07:00 Intake Total 1560 ml Output Total 500 ml Balance 1060 ml Intake Oral 1560 ml Output Urine Total 500 ml # Voids 3 # Bowel Movements 3 General Appearance: Alert, Oriented X3, Cooperative, No acute distress HEENT: Atraumatic, PERRLA Lungs: Other (FEW CRACKLES B LUNGS) Cardiovascular: Regular rate Abdomen: Normal bowel sounds, Soft, No tenderness Musculoskeletal: Normal sensory function, Normal motor function Neuro: Strength at 5/5 X4 ext, Cranial nerves 3-12 NL Skin: Dry, Intact, Warm Psych/Mental Status: Mental status NL, Mood NL Medications Current Medications Medications Dose Ordered Sig/Dona Route Start Time Stop Time Status Last Admin Dose Admin Ondansetron HCl 4 mg Q4HP PRN IV 11/19/24 08:45 Docusate Sodium 100 mg BIDPRN PRN PO 11/19/24 08:45 Acetaminophen 650 mg Q6HP PRN PO 11/19/24 08:45 11/28/24 14:14 650 MG Nitroglycerin 0.4 mg Q5MINP PRN SL 11/19/24 08:45 Sodium Chloride 10 ml QSHIFT@ IV 11/25/24 22:00 12/10/24 21:34 10 ML Bisacodyl 10 mg DAILYP PRN W[place] 12/01/24 07:30 Morphine Sulfate 1 mg Q3HP PRN IV 11/30/24 14:15 11/30/24 14:29 1 MG Empaglifozin 10 mg DAILY PO 12/02/24 10:00 12/09/24 09:36 10 MG Pantoprazole Sodium 40 mg DAILY@0600 PO 12/03/24 06:00 12/10/24 05:20 40 MG Clopidogrel Bisulfate 75 mg DAILY PO 12/03/24 10:00 12/10/24 11:41 75 MG Aspirin 81 mg DAILY PO 12/02/24 10:00 12/10/24 11:39 81 MG Nicotine 1 patch DAILY TD 12/03/24 10:00 12/09/24 09:40 1 PATCH Sacubitril/ Valsartan 0.5 tab BID PO 12/03/24 10:00 12/10/24 21:34 0.5 TAB Atorvastatin Calcium 40 mg HS PO 12/05/24 22:00 12/10/24 21:34 40 MG Temazepam 15 mg HSPRN PRN PO 12/09/24 11:00 12/10/24 21:35 15 MG Laboratory Results Laboratory Tests 12/10/24 06:03 Chemistry Test 12/10/24 06:03 Albumin 3.9 g/dL (3.2-4.8) Calcium Level 9.3 mg/dL (8.7-10.4) Total Protein 6.7 g/dL (5.7-8.2) Coagulation Test 12/10/24 06:03 Prothrombin Time 11.2 sec (9.3-11.8) Prothrombin Time INR 1.06 (0.9-1.15) Activated Partial Thromboplast Time 27.3 SEC (24.5-34.5) LFT Test 12/10/24 06:03 Alanine Aminotransferase (ALT) 60 U/L (7-40) H Alkaline Phosphatase 85 U/L (46-116) Aspartate Amino Transferase (AST) 56 U/L (13-40) H Total Bilirubin 0.7 mg/dL (0.2-1.0) Urinalysis Test 11/19/24 08:35 12/10/24 04:00 Urine Osmolality 518 mOsm/kg Urine Creatinine 104.97 mg/dL (30.0-125.0) Urine Protein/Creatinine Ratio 1.03 Urine Sodium 21 mmol/L (40-220) L Urine Total Protein 108.6 mg/dL (1-14) H Urine Color Light-yellow (Yellow) Urine Clarity Clear (Clear) Urine pH 6.0 (5.0-9.0) Urine Specific [place] 1.012 (1.001-1.035) Urine Protein Negative (Negative) Urine Ketones Negative (Negative) Urine Blood Negative /uL (Negative) Urine Nitrite Negative (Negative) Urine Bilirubin Negative (Negative) Urine Urobilinogen Normal mg/dL (Negative) Urine Leukocyte Esterase Negative /uL (Negative) Urine RBC 1 /hpf (0 - 3) Urine Microscopic WBC 1 /HPF (0-3) Urine Squamous Epithelial Cells Few /hpf (<5) Urine Bacteria None seen /hpf (None Seen) Urine Glucose 4+ mg/dL (Normal) H Microbiology Microbiology Date/Time Source Procedure Growth Status 11/23/24 09:12 Blood Blood Culture - Final NO GROWTH AFTER 5 DAYS OF INCUBATION. Complete 11/20/24 04:00 Nose MRSA Screen - Final Complete 11/19/24 09:42 Sputum Expectorated Sputum Gram Stain - Final Complete 11/19/24 09:42 Respiratory Culture - Final Streptococcus Group B Complete Assessment/Plan Assessment/Plan Impression: Acute hypoxic respiratory failure Chronic hypercarbic respiratory failure, PaCO2 63 mmHg. Dependence on supplemental oxygen Hyperkalemia Acute decompensated Heart Failure Acute kidney Injury Methamphetamine use Marijuana use Aspiration Hepatitis C Events: Improved O2 requirements Breathing on room air Supplemental oxygen PRN Continue antibiotics Continue bronchodilators Incentive spirometry Follow up Cardiology recs Plan for heart catheterization this AM. Monitor renal function post catheterization Monitor electrolytes. Supplement as necessary. Protonix for GI ppx Continue NRT. Head of bed elevation Aspiration precautions Monitor closely d/t high risk of aspiration Disposition per hospitalist. Labs and imaging reviewed. Rest of plan as noted below. Plan: s/p extubation on 11/30/24 Supplemental oxygen PRN Titrate to keep O2 saturation above 92%. Pressors if necessary for hemodynamic support. Titrate to keep MAP above 65 mmHg/SBP above 90 mmHg. Antibiotics. Bronchodilators PRN On Plavix Entresto Monitor renal function due to acute kidney injury. Monitor electrolytes. Supplement as necessary. Hypokalemia, supplement Maintain euvolemia Nutritional support. Accucheks, ISS. GI/DVT prophylaxis. Prognosis: Poor given multiple comorbidities. Rest of plan per hospitalist and other consultants. Thank you for allowing me to participate in this patient's care. Further recommendations will depend on patient's clinical course. Please do not hesitate to contact me if you have any questions or concerns. This medical document was created using an electronic medical record system with [employer] dictation system. Although this document has been carefully reviewed, there may still be some phonetic and typographical errors. These areas are purely typographical due to imperfections of the software programs, and do not reflect any compromise in the patient's medical care. Plan discussed with: Patient, Other (SELMA Arango) Visit Coding Pulmonary Billing Provider: JHONY GARIBAY MD Date of Service if different f: Dec 10, 2024 Common Visit Codes: [id number] INP/OBS CARE(HIGH) JHONY GARIBAY MD Dec 10, 2024 21:46
--- NOTE | 2024-12-10 23:53 | DVHPN2 ---
Progress Note - Dictate Date Seen: Dec 10, 2024 Medical Necessity Reason Pt with a Central, PICC or Fol: No Subjective Patient was seen and evaluated in follow up int the [facility]. Patient underwent PTCA and stenting of left anterior descending coronary artery and diagonal artery bifurcation, placement of Impella device for high-risk angioplasty. The patient tolerated procedure well. vital signs Vital Sign Date Time Temp Pulse Resp B/P (MAP) Pulse Ox O2 Delivery O2 Flow Rate FiO2 12/10/24 12:52 97.1 86 14 113/78 (90) 97 97.1 12/09/24 20:00 Room Air* 0 21 Total Intake and Output 12/09/24 12/09/24 12/10/24 15:00 23:00 07:00 Intake Total 960 ml 600 ml Output Total 500 ml Balance 460 ml 600 ml medications Current Medications Medications Dose Ordered Sig/Dona Route Start Time Stop Time Status Last Admin Dose Admin Ondansetron HCl 4 mg Q4HP PRN IV 11/19/24 08:45 Docusate Sodium 100 mg BIDPRN PRN PO 11/19/24 08:45 Acetaminophen 650 mg Q6HP PRN PO 11/19/24 08:45 11/28/24 14:14 650 MG Nitroglycerin 0.4 mg Q5MINP PRN SL 11/19/24 08:45 Sodium Chloride 10 ml QSHIFT@ IV 11/25/24 22:00 12/10/24 11:45 10 ML Bisacodyl 10 mg DAILYP PRN [place] 12/01/24 07:30 Morphine Sulfate 1 mg Q3HP PRN IV 11/30/24 14:15 11/30/24 14:29 1 MG Empaglifozin 10 mg DAILY PO 12/02/24 10:00 12/09/24 09:36 10 MG Pantoprazole Sodium 40 mg DAILY@0600 PO 12/03/24 06:00 12/10/24 05:20 40 MG Clopidogrel Bisulfate 75 mg DAILY PO 12/03/24 10:00 12/10/24 11:41 75 MG Aspirin 81 mg DAILY PO 12/02/24 10:00 12/10/24 11:39 81 MG Nicotine 1 patch DAILY TD 12/03/24 10:00 12/09/24 09:40 1 PATCH Sacubitril/ Valsartan 0.5 tab BID PO 12/03/24 10:00 12/10/24 11:39 0.5 TAB Atorvastatin Calcium 40 mg HS PO 12/05/24 22:00 12/09/24 21:46 40 MG Temazepam 15 mg HSPRN PRN PO 12/09/24 11:00 objective GENERAL: Alert and oriented x 3. No acute distress. EYES: PERRL, EOMI. Anicteric. HENT: Moist mucous membranes. LUNGS: Decreased breath sounds. CARDIOVASCULAR: Regular rate and rhythm. ABDOMEN: Soft, nontender and nondistended. EXTREMITIES: No edema. NEUROLOGIC: No focal neurological deficits. SKIN: Warm, dry. laboratory and microbiology Laboratory Tests 12/10/24 06:03 Test 12/10/24 06:03 Range/Units Serum Glucose 87 74-106 mg/dL Problem List CAD ischemic cardiomyopathy. Cardiopulmonary arrest status post CPR with ROSC. Mixed shock, cardiogenic versus septic. [place], decompensated HFrEF, NYHA class IV. NSTEMI, with severe coronary artery disease. Moderate tricuspid valve regurgitation. Acute hypoxic respiratory failure. Acute kidney injury. Bacteremia. Hyperkalemia, resolved. Shock liver. History of methamphetamine use. Assessment/Plan Continued all current supportive medical care. Aspirin, Plavix. Entresto. GI prophylactics. Nitro SL. Morphine for pain management. Additional plan as per the hospital course. Critical care time of 45 minutes provided to include time spent evaluation of patient at bedside, when appropriate patient/family education for diagnosis, treatment plan, review of pertinent medical information and discussion of care with specialty providers and PCP. Dietary Evaluation Review Comments: Nutrition Recommendation: 1) TF Jevity 1.2Cal @ 70ml/hr x 24hr (goal rate) along with Pro-stat 1 pk daily. Start @ 20ml/hr, increase 10ml/hr Q4H until goal is reached. TF @ goal volume along with Pro-stat & Propofol provide 2116 kcal (100% energy needs), 108 gm protein (100% protein needs), 1356 ml free water. 2) Water flush 190 ml Q6H if allowed, adjust PRN 3) TPN if NPO >7 days 4) Monitor NPO status, lab values, wt trend, I/O Expected Outcomes/Goals: To meet >75% estimated needs Lab values to improve Fu 2-3 days Plan discussed with: Patient SULAIMAN MALLOY MD Dec 10, 2024 17:55
[2024-12-11] VITALS (81 sets, daily range): BP systolic 71–112; BP diastolic 41–78; PULSE 74–121; RESP 15–24; TEMP 96.3–99; O2SAT 88–100
[2024-12-11 06:09] LABS: Hematocrit 42.4 % (41.0-53.0); Hemoglobin 14.4 g/dL (13.5-17.5); Mean Corpuscular Hemoglobin 30.7 pg (28.0-32.0); Mean Corpuscular Volume 90.3 fL (80.0-100.0); Nucleated Red Blood Cells % 0.2 %
[2024-12-11 06:17] LABS: Anion Gap 8 (5-15); Carbon Dioxide 25 mmol/L (20-31); Chloride 104 mmol/L (98-107); Potassium 4.1 mmol/L (3.5-5.1); Sodium 137 mmol/L (136-145)
[2024-12-11 06:19] LABS: Calcium 9.1 mg/dL (8.7-10.4)
[2024-12-11 06:23] LABS: BUN/Creatinine Ratio 12.2 (10.0-20.0); Blood Urea Nitrogen 10 mg/dL (9-23); Glucose 102 mg/dL (74-106)
--- NOTE | 2024-12-11 09:14 | DVHPN2 ---
Subjective Patient more alert. Denies any symptoms. Reviewed: Care Plan, H&P, Labs, Medications, Previous Orders, Radiology Changes from previous H/P or p: No Changes General: Per HPI Objective Vitals Vital Signs Date Time Temp Pulse Resp B/P (MAP) Pulse Ox O2 Delivery O2 Flow Rate FiO2 12/11/24 06:00 89 18 90/57 (68) 95 12/11/24 04:00 97.7 97.7 12/10/24 20:00 Nasal Cannula* 2 28 Intake/Output Intake and Output 12/11/24 07:00 Intake Total 1078 ml Output Total 1250 ml Balance -172 ml Intake Oral 1078 ml Output Urine Total 1250 ml General Appearance: Alert, Oriented X3, Cooperative, No acute distress HEENT: Atraumatic, PERRLA Lungs: Other (FEW CRACKLES B LUNGS) Cardiovascular: Regular rate Abdomen: Normal bowel sounds, Soft, No tenderness Musculoskeletal: Normal sensory function, Normal motor function Neuro: Strength at 5/5 X4 ext, Cranial nerves 3-12 NL Skin: Dry, Intact, Warm Psych/Mental Status: Mental status NL, Mood NL Medications Current Medications Medications Dose Ordered Sig/Dona Route Start Time Stop Time Status Last Admin Dose Admin Ondansetron HCl 4 mg Q4HP PRN IV 11/19/24 08:45 Docusate Sodium 100 mg BIDPRN PRN PO 11/19/24 08:45 Acetaminophen 650 mg Q6HP PRN PO 11/19/24 08:45 11/28/24 14:14 650 MG Nitroglycerin 0.4 mg Q5MINP PRN SL 11/19/24 08:45 Sodium Chloride 10 ml QSHIFT@ IV 11/25/24 22:00 12/10/24 21:34 10 ML Bisacodyl 10 mg DAILYP PRN RI 12/01/24 07:30 Morphine Sulfate 1 mg Q3HP PRN IV 11/30/24 14:15 11/30/24 14:29 1 MG Empaglifozin 10 mg DAILY PO 12/02/24 10:00 12/09/24 09:36 10 MG Pantoprazole Sodium 40 mg DAILY@0600 PO 12/03/24 06:00 12/11/24 05:17 40 MG Clopidogrel Bisulfate 75 mg DAILY PO 12/03/24 10:00 12/10/24 11:41 75 MG Aspirin 81 mg DAILY PO 12/02/24 10:00 12/10/24 11:39 81 MG Nicotine 1 patch DAILY TD 12/03/24 10:00 12/09/24 09:40 1 PATCH Sacubitril/ Valsartan 0.5 tab BID PO 12/03/24 10:00 12/10/24 21:34 0.5 TAB Atorvastatin Calcium 40 mg HS PO 12/05/24 22:00 12/10/24 21:34 40 MG Temazepam 15 mg HSPRN PRN PO 12/09/24 11:00 12/10/24 21:35 15 MG Laboratory Results Laboratory Tests 12/11/24 05:36 Chemistry Test 12/11/24 05:36 Calcium Level 9.1 mg/dL (8.7-10.4) Urinalysis Test 11/19/24 08:35 12/10/24 04:00 Urine Osmolality 518 mOsm/kg Urine Creatinine 104.97 mg/dL (30.0-125.0) Urine Protein/Creatinine Ratio 1.03 Urine Sodium 21 mmol/L (40-220) L Urine Total Protein 108.6 mg/dL (1-14) H Urine Color Light-yellow (Yellow) Urine Clarity Clear (Clear) Urine pH 6.0 (5.0-9.0) Urine Specific [place] 1.012 (1.001-1.035) Urine Protein Negative (Negative) Urine Ketones Negative (Negative) Urine Blood Negative /uL (Negative) Urine Nitrite Negative (Negative) Urine Bilirubin Negative (Negative) Urine Urobilinogen Normal mg/dL (Negative) Urine Leukocyte Esterase Negative /uL (Negative) Urine RBC 1 /hpf (0 - 3) Urine Microscopic WBC 1 /HPF (0-3) Urine Squamous Epithelial Cells Few /hpf (<5) Urine Bacteria None seen /hpf (None Seen) Urine Glucose 4+ mg/dL (Normal) H Microbiology Microbiology Date/Time Source Procedure Growth Status 11/23/24 09:12 Blood Blood Culture - Final NO GROWTH AFTER 5 DAYS OF INCUBATION. Complete 11/20/24 04:00 Nose MRSA Screen - Final Complete 11/19/24 09:42 Sputum Expectorated Sputum Gram Stain - Final Complete 11/19/24 09:42 Respiratory Culture - Final Streptococcus Group B Complete Labs and/or images reviewed: Labs reviewed by me, Image(s) reviewed by me Assessment/Plan Assessment/Plan Impression: -S/P cardiopulmonary arrest -Acute Hypoxic Respiratory Failure -Acute Decompensated Heart Failure -Hyperkalemia -Acute Kidney Injury/ VMN -Cardiogenic shock -Hx of Amphetamine use -NSTEMI type II -aspiration pneumonia -acute delirium Plan: Events: Patient had successful PTCA of LAD and diagonal yesterday afternoon with Impella device backup. Noted oozing to right femoral area yesterday evening. H&H stable this a.m.. Patient's blood pressure marginal at this time. Instructed primary nurse to hold Entresto today. Patient will be given gentle IV hydration. Patient will continue with bedrest today. Reassess for discharge in a.m. after speaking with the patient's sister Yolette regarding disposition of patient. -O2 supplementation to keep saturation greater than 92% -Continue Plavix and asa -continue guideline directed medical therapy: Hold beta-arnie therapy given periods of bradycardia. Continue Entresto, Jardiance. Hold spironolactone given marginal blood pressure -cardiology consultation: Recommendations reviewed -PUD/DVT prophylaxis -Repeat labs in this afternoon -keep patient in step-down ICU overnight. Total time spent with patient discussing and formulating plan of care: 45 minutes. This does not include time spent performing procedures. This medical document was created using an electronic medical record system with [employer] dictation system. Although this document has been carefully reviewed, there may still be some phonetic and typographical errors. These areas are purely typographical due to imperfections of the software programs, and do not reflect any compromise in the patient's medical care. Plan discussed with: Patient, Other (RN) My Orders Orders - AURELIO ZAMARRIPA NP Procedure Category Date Status Time Transfer Orders XFER 12/10/24 Transmitted 15:58 NS PHA 12/11/24 Transmitted 09:15 Hemoglobin & LAB 12/11/24 Transmitted Hematocrit 13:00 Date of Service: Dec 11, 2024 Billing Provider: AURELIO ZAMARRIPA NP Common Visit Codes: [id number] CARE 30-74 MIN AURELIO ZAMARRIPA NP Dec 11, 2024 09:13
[2024-12-11] MEDS: SODIUM CHLORIDE 0.9% 1,000 ML IV ONE (09:37)
[2024-12-11] MEDS: DOPamine 1600MCG/ML D5W 250 ML IV SCH (13:09)
[2024-12-11 13:45] LABS: Hematocrit 36.8 % (41.0-53.0); Hemoglobin 12.4 g/dL (13.5-17.5)
[2024-12-11] MEDS: NOREPINEPHRINE 8 MG/250ML KIT 250 ML IV SCH (14:03)
--- NOTE | 2024-12-11 15:18 | DVHPN2 ---
Consult Progress Note Subjective Other Systems: Patient in sinus tachycardia on clinical research monitor. Denies any symptoms at time of assessment. Objective vital signs Vital Sign Date Time Temp Pulse Resp B/P (MAP) Pulse Ox O2 Delivery O2 Flow Rate FiO2 12/11/24 14:40 96/56 12/11/24 06:00 89 18 95 12/11/24 04:00 97.7 97.7 12/10/24 20:00 Nasal Cannula* 2 28 Total Intake and Output 12/10/24 12/10/24 12/11/24 15:00 23:00 07:00 Intake Total 240 ml 838 ml Output Total 1250 ml Balance 240 ml -412 ml medications Current Medications Medications Dose Ordered Sig/Dona Route Start Time Stop Time Status Last Admin Dose Admin Ondansetron HCl 4 mg Q4HP PRN IV 11/19/24 08:45 Docusate Sodium 100 mg BIDPRN PRN PO 11/19/24 08:45 Acetaminophen 650 mg Q6HP PRN PO 11/19/24 08:45 11/28/24 14:14 650 MG Nitroglycerin 0.4 mg Q5MINP PRN SL 11/19/24 08:45 Sodium Chloride 10 ml QSHIFT@,22 IV 11/25/24 22:00 12/11/24 09:37 10 ML Bisacodyl 10 mg DAILYP PRN [place] 12/01/24 07:30 Morphine Sulfate 1 mg Q3HP PRN IV 11/30/24 14:15 11/30/24 14:29 1 MG Empaglifozin 10 mg DAILY PO 12/02/24 10:00 12/09/24 09:36 10 MG Pantoprazole Sodium 40 mg DAILY@0600 PO 12/03/24 06:00 12/11/24 05:17 40 MG Clopidogrel Bisulfate 75 mg DAILY PO 12/03/24 10:00 12/11/24 10:52 75 MG Aspirin 81 mg DAILY PO 12/02/24 10:00 12/11/24 10:53 81 MG Nicotine 1 patch DAILY TD 12/03/24 10:00 12/11/24 11:12 1 PATCH Sacubitril/ Valsartan 0.5 tab BID PO 12/03/24 10:00 12/10/24 21:34 0.5 TAB Atorvastatin Calcium 40 mg HS PO 12/05/24 22:00 12/10/24 21:34 40 MG Temazepam 15 mg HSPRN PRN PO 12/09/24 11:00 12/10/24 21:35 15 MG Dopamine HCl/ Dextrose 250 ml @ 13.5 mls/hr [id number] IV 12/11/24 12:45 12/11/24 13:09 13.5 MLS/HR Norepinephrine Bitartrate 250 ml @ 3.75 mls/hr Q24H IV 12/11/24 14:00 12/11/24 14:03 3.75 MLS/HR Examination: GENERAL:Normal, LUNGS:Normal, CVS:Normal, NEURO:Normal laboratory and microbiology Laboratory Tests 12/11/24 13:31 12/11/24 05:36 Test 12/11/24 05:36 Range/Units Serum Glucose 102 74-106 mg/dL Problem List/Assessment/Plan Problem List/Assessment/Plan NSTEMI s/p PTCA with stenting to LAD and diagonal Cardiopulmonary arrest status post CPR with ROSC Mixed shock, cardiogenic & septic, resolved De Ginger, decompensated HFrEF, NYHA class IV Ischemic cardiomyopathy with LVEF of 10-15% Non-sustained ventricular tachycardia (<3 sec) Acute hypoxic respiratory failure Acute kidney injury, resolving Shock liver, resolved Hyperkalemia, resolved Methamphetamine/cannabinoid use PE ruled out Plan/Recommendations (Dr. Beatty) A transthoracic echocardiogram reveals an EF of 10-15% with severe global hypokinesis. A cardiac catheterization and coronary angiogram revealed multivessel disease for which the patient underwent a myocardial viability study deemed to be amenable for coronary intervention. The patient underwent a coronary angiogram with Impella assisted PTCA and stenting of the LAD and diagonal on 12/10/2024. A staged procedure to the RCA is recommended and can be done on an outpatient basis as per . Continue with dual antiplatelet therapy and lipid-lowering agent. At the time of assessment, the patient's blood pressure is suboptimal. We will hold guideline directed medical therapy for CHF at this time given decreased blood pressure. Patient remains asymptomatic. Continue with close cardiac surveillance. Critical care time spent: 30 minutes. This medical document was created using an electronic medical record system with voice recognition software and computerized dictation system. Although this document has been carefully reviewed, there might still be some phonetic and typographical errors. Occasional wrong-word or ``sound-alike substitutions may have occurred due to the inherent limitations of voice recognition software. These areas are purely typographical due to imperfections of the software programs and do not reflect any compromise in the patient's medical care. Please read the chart carefully and recognize, using context, where these substitutions have occurred. Plan discussed with: Patient Dietary Evaluation Review Comments: Nutrition Recommendation: 1) TF Jevity 1.2Cal @ 70ml/hr x 24hr (goal rate) along with Pro-stat 1 pk daily. Start @ 20ml/hr, increase 10ml/hr Q4H until goal is reached. TF @ goal volume along with Pro-stat & Propofol provide 2116 kcal (100% energy needs), 108 gm protein (100% protein needs), 1356 ml free water. 2) Water flush 190 ml Q6H if allowed, adjust PRN 3) TPN if NPO >7 days 4) Monitor NPO status, lab values, wt trend, I/O Expected Outcomes/Goals: To meet >75% estimated needs Lab values to improve Fu 2-3 days Date of Service: Dec 11, 2024 Billing Provider: HEMA SCHWARZ Common Visit Codes: [id number] CARE 30-74 MIN HEMA SCHWARZ Dec 11, 2024 15:18
--- NOTE | 2024-12-11 22:04 | DVHPN2 ---
Progress Note - Dictate Date Seen: Dec 11, 2024 Medical Necessity Reason Pt with a Central, PICC or Fol: No Subjective Patient was seen and evaluated in follow up in the [facility]. The patient is resting in bed. WBC 11. vital signs Vital Sign Date Time Temp Pulse Resp B/P (MAP) Pulse Ox O2 Delivery O2 Flow Rate FiO2 12/11/24 06:00 89 18 90/57 (68) 95 12/11/24 04:00 97.7 97.7 12/10/24 20:00 Nasal Cannula* 2 28 Total Intake and Output 12/10/24 12/10/24 12/11/24 14:59 22:59 06:59 Intake Total 240 ml 838 ml Output Total 1250 ml Balance 240 ml -412 ml medications Current Medications Medications Dose Ordered Sig/Dona Route Start Time Stop Time Status Last Admin Dose Admin Ondansetron HCl 4 mg Q4HP PRN IV 11/19/24 08:45 Docusate Sodium 100 mg BIDPRN PRN PO 11/19/24 08:45 Acetaminophen 650 mg Q6HP PRN PO 11/19/24 08:45 11/28/24 14:14 650 MG Nitroglycerin 0.4 mg Q5MINP PRN SL 11/19/24 08:45 Sodium Chloride 10 ml QSHIFT@ IV 11/25/24 22:00 12/11/24 09:37 10 ML Bisacodyl 10 mg DAILYP PRN ID 12/01/24 07:30 Morphine Sulfate 1 mg Q3HP PRN IV 11/30/24 14:15 11/30/24 14:29 1 MG Empaglifozin 10 mg DAILY PO 12/02/24 10:00 12/09/24 09:36 10 MG Pantoprazole Sodium 40 mg DAILY@0600 PO 12/03/24 06:00 12/11/24 05:17 40 MG Clopidogrel Bisulfate 75 mg DAILY PO 12/03/24 10:00 12/11/24 10:52 75 MG Aspirin 81 mg DAILY PO 12/02/24 10:00 12/11/24 10:53 81 MG Nicotine 1 patch DAILY TD 12/03/24 10:00 12/11/24 11:12 1 PATCH Sacubitril/ Valsartan 0.5 tab BID PO 12/03/24 10:00 12/10/24 21:34 0.5 TAB Atorvastatin Calcium 40 mg HS PO 12/05/24 22:00 12/10/24 21:34 40 MG Temazepam 15 mg HSPRN PRN PO 12/09/24 11:00 12/10/24 21:35 15 MG objective GENERAL: Alert and oriented x 3. No acute distress. EYES: PERRL, EOMI. Anicteric. HENT: Moist mucous membranes. LUNGS: Decreased breath sounds. CARDIOVASCULAR: Regular rate and rhythm. ABDOMEN: Soft, nontender and nondistended. EXTREMITIES: No edema. NEUROLOGIC: No focal neurological deficits. SKIN: Warm, dry. laboratory and microbiology Laboratory Tests 12/11/24 05:36 Test 12/11/24 05:36 Range/Units Serum Glucose 102 74-106 mg/dL Problem List CAD ischemic cardiomyopathy. Cardiopulmonary arrest status post CPR with ROSC. Mixed shock, cardiogenic versus septic. De Ginger, decompensated HFrEF, NYHA class IV. NSTEMI, with severe coronary artery disease. Moderate tricuspid valve regurgitation. Acute hypoxic respiratory failure. Acute kidney injury. Bacteremia. Hyperkalemia, resolved. Shock liver. History of methamphetamine use. Assessment/Plan Continued all current supportive medical care. Nitro SL. Aspirin, Plavix. GI prophylactics. Additional plan as per the hospital course. Critical care time of 45 minutes provided to include time spent evaluation of patient at bedside, when appropriate patient/family education for diagnosis, treatment plan, review of pertinent medical information and discussion of care with specialty providers and PCP. Dietary Evaluation Review Comments: Nutrition Recommendation: 1) TF Jevity 1.2Cal @ 70ml/hr x 24hr (goal rate) along with Pro-stat 1 pk daily. Start @ 20ml/hr, increase 10ml/hr Q4H until goal is reached. TF @ goal volume along with Pro-stat & Propofol provide 2116 kcal (100% energy needs), 108 gm protein (100% protein needs), 1356 ml free water. 2) Water flush 190 ml Q6H if allowed, adjust PRN 3) TPN if NPO >7 days 4) Monitor NPO status, lab values, wt trend, I/O Expected Outcomes/Goals: To meet >75% estimated needs Lab values to improve Fu 2-3 days Plan discussed with: Patient SULAIMAN MALLOY MD Dec 11, 2024 12:31
--- NOTE | 2024-12-11 23:37 | DVHPN2 ---
[facility] DOS: 12/11/2024 Patient seen and examined at bedside. On supplemental oxygen Overnight events reviewed. HPI: A 69-year-old man with PMHx of hypertension and methamphetamine abuse who came to the ER on 11/19/24 for evaluation of shortness of breath. Per ER documentation, patient presented with complaints of shortness of breath x 1 week. While in the ER he was given a breathing treatment and placed on oxygen. He continued to have shortness of breath, increased work of breathing, and anxiety. He was placed on BiPAP, not tolerating due to anxiety. He subsequently had a cardiac arrest while in the ER, achieved ROSC and patient was intubated and placed on mechanical ventilator. He was admitted for further care. Pulmonary consultation is requested for evaluation and management d/t acute hypoxic respiratory failure requiring mechanical ventilator Past Medical History: Hypertension, methamphetamine abuse (per ER records). Past Surgical History: Unable to obtain Medications: Reviewed. Allergies: No known drug allergies. Family History: No family history of premature CAD. No family history of lung disorders. Social History: Nonsmoker. No alcohol use. Hx of methamphetamine abuse. Reviewed: Care Plan, H&P, Labs, Medications, Previous Orders, Radiology Changes from previous H/P or p: Changes General: Per HPI Objective Vitals Vital Signs Date Time Temp Pulse Resp B/P (MAP) Pulse Ox O2 Delivery O2 Flow Rate FiO2 12/11/24 23:17 103/65 12/11/24 23:15 81 96 12/11/24 22:00 20 Room Air* 0 21 12/11/24 20:00 98.9 98.9 Intake/Output Intake and Output 12/11/24 07:00 Intake Total 1078 ml Output Total 1250 ml Balance -172 ml Intake Oral 1078 ml Output Urine Total 1250 ml General Appearance: Alert, Oriented X3, Cooperative, No acute distress HEENT: Atraumatic, PERRLA Lungs: Other (FEW CRACKLES B LUNGS) Cardiovascular: Regular rate Abdomen: Normal bowel sounds, Soft, No tenderness Musculoskeletal: Normal sensory function, Normal motor function Neuro: Strength at 5/5 X4 ext, Cranial nerves 3-12 NL Skin: Dry, Intact, Warm Psych/Mental Status: Mental status NL, Mood NL Medications Current Medications Medications Dose Ordered Sig/Dona Route Start Time Stop Time Status Last Admin Dose Admin Ondansetron HCl 4 mg Q4HP PRN IV 9/10/25 08:45 Docusate Sodium 100 mg BIDPRN PRN PO 11/19/24 08:45 Acetaminophen 650 mg Q6HP PRN PO 11/19/24 08:45 11/28/24 14:14 650 MG Nitroglycerin 0.4 mg Q5MINP PRN SL 11/19/24 08:45 Sodium Chloride 10 ml QSHIFT@10,22 IV 11/25/24 22:00 12/11/24 21:32 10 ML Bisacodyl 10 mg DAILYP PRN [place] 12/01/24 07:30 Morphine Sulfate 1 mg Q3HP PRN IV 11/30/24 14:15 11/30/24 14:29 1 MG Empaglifozin 10 mg DAILY PO 12/02/24 10:00 12/09/24 09:36 10 MG Pantoprazole Sodium 40 mg DAILY@0600 PO 12/03/24 06:00 12/11/24 05:17 40 MG Clopidogrel Bisulfate 75 mg DAILY PO 12/03/24 10:00 12/11/24 10:52 75 MG Aspirin 81 mg DAILY PO 12/02/24 10:00 12/11/24 10:53 81 MG Nicotine 1 patch DAILY TD 12/03/24 10:00 12/11/24 11:12 1 PATCH Sacubitril/ Valsartan 0.5 tab BID PO 12/03/24 10:00 12/10/24 21:34 0.5 TAB Atorvastatin Calcium 40 mg HS PO 12/05/24 22:00 12/11/24 21:32 40 MG Temazepam 15 mg HSPRN PRN PO 12/09/24 11:00 12/11/24 21:32 15 MG Dopamine HCl/ Dextrose 250 ml @ 13.5 mls/hr [id number] IV 12/11/24 12:45 12/11/24 13:09 13.5 MLS/HR Norepinephrine Bitartrate 250 ml @ 3.75 mls/hr Q24H IV 12/11/24 14:00 12/11/24 23:17 18.75 MLS/HR Laboratory Results Laboratory Tests 12/11/24 05:36 12/11/24 13:31 Chemistry Test 12/11/24 05:36 Calcium Level 9.1 mg/dL (8.7-10.4) Urinalysis Test 11/19/24 08:35 12/10/24 04:00 Urine Osmolality 518 mOsm/kg Urine Creatinine 104.97 mg/dL (30.0-125.0) Urine Protein/Creatinine Ratio 1.03 Urine Sodium 21 mmol/L (40-220) L Urine Total Protein 108.6 mg/dL (1-14) H Urine Color Light-yellow (Yellow) Urine Clarity Clear (Clear) Urine pH 6.0 (5.0-9.0) Urine Specific [place] 1.012 (1.001-1.035) Urine Protein Negative (Negative) Urine Ketones Negative (Negative) Urine Blood Negative /uL (Negative) Urine Nitrite Negative (Negative) Urine Bilirubin Negative (Negative) Urine Urobilinogen Normal mg/dL (Negative) Urine Leukocyte Esterase Negative /uL (Negative) Urine RBC 1 /hpf (0 - 3) Urine Microscopic WBC 1 /HPF (0-3) Urine Squamous Epithelial Cells Few /hpf (<5) Urine Bacteria None seen /hpf (None Seen) Urine Glucose 4+ mg/dL (Normal) H Microbiology Microbiology Date/Time Source Procedure Growth Status 11/23/24 09:12 Blood Blood Culture - Final NO GROWTH AFTER 5 DAYS OF INCUBATION. Complete 11/20/24 04:00 Nose MRSA Screen - Final Complete 11/19/24 09:42 Sputum Expectorated Sputum Gram Stain - Final Complete 11/19/24 09:42 Respiratory Culture - Final Streptococcus Group B Complete Assessment/Plan Assessment/Plan Impression: Acute hypoxic respiratory failure Chronic hypercarbic respiratory failure, PaCO2 63 mmHg. Dependence on supplemental oxygen Hyperkalemia Acute decompensated Heart Failure Acute kidney Injury Methamphetamine use Marijuana use Aspiration Hepatitis C Events: On supplemental oxygen, 3 LPM NC Taper O2 as tolerated Continue antibiotics Continue bronchodilators Incentive spirometry IV fluids with NS at 75 ml/hr. S/p cardiac cath. Cardiology recs appreciated. Transthoracic echocardiogram revealed EF of 10-15% with severe global hypokinesis. A cardiac catheterization and coronary angiogram revealed multivessel disease for which the patient underwent a myocardial viability study, deemed to be amenable for coronary intervention. The patient underwent a coronary angiogram with Impella assisted PTCA and stenting of the LAD and diagonal on 12/10/2024. A staged procedure to the RCA is recommended and can be done on an outpatient basis as per . Continue Plavix and atorvastatin Monitor renal function post catheterization Monitor electrolytes. Supplement as necessary. Protonix for GI ppx Continue NRT. Head of bed elevation Aspiration precautions Monitor closely d/t high risk of aspiration Disposition per hospitalist. Labs and imaging reviewed. Rest of plan as noted below. Plan: s/p extubation on 11/30/24 Supplemental oxygen Titrate to keep O2 saturation above 92%. Pressors if necessary for hemodynamic support. Titrate to keep MAP above 65 mmHg/SBP above 90 mmHg. Antibiotics. Bronchodilators PRN On Plavix Entresto Follow up Cardiology recommendations Monitor renal function due to acute kidney injury. Monitor electrolytes. Supplement as necessary. Maintain euvolemia Nutritional support. Accucheks, ISS. GI/DVT prophylaxis. Prognosis: Poor given multiple comorbidities. Rest of plan per hospitalist and other consultants. Thank you for allowing me to participate in this patient's care. Further recommendations will depend on patient's clinical course. Please do not hesitate to contact me if you have any questions or concerns. This medical document was created using an electronic medical record system with [employer] dictation system. Although this document has been carefully reviewed, there may still be some phonetic and typographical errors. These areas are purely typographical due to imperfections of the software programs, and do not reflect any compromise in the patient's medical care. Plan discussed with: Patient, Other (RN) Visit Coding Pulmonary Billing Provider: JHONY GARIBAY MD Date of Service if different f: Dec 11, 2024 Common Visit Codes: [id number] INP/OBS CARE(HIGH) JHONY GARIBAY MD Dec 11, 2024 23:37
[2024-12-12] VITALS (88 sets, daily range): BP systolic 80–129; BP diastolic 50–89; PULSE 70–99; RESP 13–37; TEMP 97.8–98.6; O2SAT 90–99
--- NOTE | 2024-12-12 09:14 | DVHPN2 ---
Subjective Denies any symptoms Reviewed: Care Plan, H&P, Labs, Medications, Previous Orders, Radiology Changes from previous H/P or p: No Changes General: Per HPI Objective Vitals Vital Signs Date Time Temp Pulse Resp B/P (MAP) Pulse Ox O2 Delivery O2 Flow Rate FiO2 12/12/24 08:00 77 12/12/24 08:00 18 93 Room Air* 0 21 12/12/24 07:27 105/81 12/12/24 04:00 98.4 98.4 Intake/Output Intake and Output 12/12/24 07:00 Intake Total 3818.290 ml Output Total 4050 ml Balance -231.710 ml Intake Oral 2255 ml IV Total 1563.290 ml Output Urine Total 4050 ml General Appearance: Alert, Oriented X3, Cooperative, No acute distress HEENT: Atraumatic, PERRLA Lungs: Other (FEW CRACKLES B LUNGS) Cardiovascular: Regular rate, Normal S1, Normal S2 Abdomen: Normal bowel sounds, Soft, No tenderness Musculoskeletal: Normal sensory function, Normal motor function Neuro: Strength at 5/5 X4 ext, Cranial nerves 3-12 NL Skin: Dry, Intact, Warm Psych/Mental Status: Mental status NL, Mood NL Medications Current Medications Medications Dose Ordered Sig/Dona Route Start Time Stop Time Status Last Admin Dose Admin Ondansetron HCl 4 mg Q4HP PRN IV 11/19/24 08:45 Docusate Sodium 100 mg BIDPRN PRN PO 11/19/24 08:45 Acetaminophen 650 mg Q6HP PRN PO 11/19/24 08:45 11/28/24 14:14 650 MG Nitroglycerin 0.4 mg Q5MINP PRN SL 11/19/24 08:45 Sodium Chloride 10 ml QSHIFT@,22 IV 11/25/24 22:00 12/11/24 21:32 10 ML Bisacodyl 10 mg DAILYP PRN [place] 12/01/24 07:30 Morphine Sulfate 1 mg Q3HP PRN IV 11/30/24 14:15 11/30/24 14:29 1 MG Empaglifozin 10 mg DAILY PO 12/02/24 10:00 12/09/24 09:36 10 MG Pantoprazole Sodium 40 mg DAILY@0600 PO 12/03/24 06:00 12/12/24 05:20 40 MG Clopidogrel Bisulfate 75 mg DAILY PO 12/03/24 10:00 12/11/24 10:52 75 MG Aspirin 81 mg DAILY PO 12/02/24 10:00 12/11/24 10:53 81 MG Nicotine 1 patch DAILY TD 12/03/24 10:00 12/11/24 11:12 1 PATCH Atorvastatin Calcium 40 mg HS PO 12/05/24 22:00 12/11/24 21:32 40 MG Temazepam 15 mg HSPRN PRN PO 12/09/24 11:00 12/11/24 21:32 15 MG Norepinephrine Bitartrate 250 ml @ 3.75 mls/hr Q24H IV 12/11/24 14:00 12/11/24 23:17 18.75 MLS/HR Laboratory Results Laboratory Tests 12/11/24 05:36 12/11/24 13:31 Urinalysis Test 11/19/24 08:35 12/10/24 04:00 Urine Osmolality 518 mOsm/kg Urine Creatinine 104.97 mg/dL (30.0-125.0) Urine Protein/Creatinine Ratio 1.03 Urine Sodium 21 mmol/L (40-220) L Urine Total Protein 108.6 mg/dL (1-14) H Urine Color Light-yellow (Yellow) Urine Clarity Clear (Clear) Urine pH 6.0 (5.0-9.0) Urine Specific [place] 1.012 (1.001-1.035) Urine Protein Negative (Negative) Urine Ketones Negative (Negative) Urine Blood Negative /uL (Negative) Urine Nitrite Negative (Negative) Urine Bilirubin Negative (Negative) Urine Urobilinogen Normal mg/dL (Negative) Urine Leukocyte Esterase Negative /uL (Negative) Urine RBC 1 /hpf (0 - 3) Urine Microscopic WBC 1 /HPF (0-3) Urine Squamous Epithelial Cells Few /hpf (<5) Urine Bacteria None seen /hpf (None Seen) Urine Glucose 4+ mg/dL (Normal) H Microbiology Microbiology Date/Time Source Procedure Growth Status 11/23/24 09:12 Blood Blood Culture - Final NO GROWTH AFTER 5 DAYS OF INCUBATION. Complete 11/20/24 04:00 Nose MRSA Screen - Final Complete 11/19/24 09:42 Sputum Expectorated Sputum Gram Stain - Final Complete 11/19/24 09:42 Respiratory Culture - Final Streptococcus Group B Complete Labs and/or images reviewed: Labs reviewed by me, Image(s) reviewed by me Assessment/Plan Assessment/Plan Impression: -S/P cardiopulmonary arrest -Acute Hypoxic Respiratory Failure -Acute Decompensated Heart Failure -Hyperkalemia -Acute Kidney Injury/ VMN -Cardiogenic shock -Hx of Amphetamine use -NSTEMI type II -aspiration pneumonia -acute delirium Plan: Events: Norepinephrine drip at 4 micrograms/minute. Chest x-ray this a.m. benign. Right inguinal area benign. Continue to wean off of vasopressor therapy. Repeat echocardiogram with no evidence of effusion or tamponade -O2 supplementation to keep saturation greater than 92% -Continue Plavix and asa -continue guideline directed medical therapy: Hold beta-arnie therapy given periods of bradycardia. Continue Entresto, Jardiance. Hold spironolactone given marginal blood pressure -cardiology consultation: Recommendations reviewed -PUD/DVT prophylaxis -repeat labs today Critical care time spent with patient discussing and formulating plan of care: 40 minutes. This does not include time spent performing procedures. This medical document was created using an electronic medical record system with [employer] dictation system. Although this document has been carefully reviewed, there may still be some phonetic and typographical errors. These areas are purely typographical due to imperfections of the software programs, and do not reflect any compromise in the patient's medical care. Plan discussed with: Patient, Other (RN) My Orders Orders - AURELIO ZAMARRIPA NP Procedure Category Date Status Time Chest Xray 1 View XY 12/12/24 Taken 08:20 Date of Service: Dec 12, 2024 Billing Provider: AURELIO ZAMARRIPA NP Common Visit Codes: [id number] CARE 30-74 MIN AURLEIO ZAMARRIPA NP Dec 12, 2024 09:14
--- NOTE | 2024-12-12 09:28 | DVH ---
EXAM: XY CHEST XRAY 1 VIEW Indication: chf Technique: Single frontal view of the chest was obtained Comparison: XY CHEST PORTABLE on DOS: 12/10/24, XY CHEST XRAY 1 VIEW on DOS: 12/08/24, XY CHEST PORTABL E on DOS: 12/03/24, XY CHEST PORTABLE on DOS: 12/02/24, XY CHEST PORTABLE on DOS: 12/01/24 FINDINGS: Lines and Tubes: Right PICC tip projects over cavoatrial junction. Lungs: No focal consolidation. Pulmonary vascular congestion. Pleura: No effusion. No pneumothorax. Cardiomediastinal contours: Cardiomegaly. Bones: No acute osseous abnormality. IMPRESSION: Cardiomegaly with pulmonary vascular congestion.
--- NOTE | 2024-12-12 09:32 | ECG ---
[facility] Test Date: 2024-12-11 Test Time: 13:52:30 Pat Name: LEONOR GRAF Department: Respiratoy Room: [address] [place] [address] Gender: M [employer]: Ananda REGALADO : 1955 Requested By: HEMA SCHWARZ Order Number: [id number] Reading MD: Charles Beatty Measurements Intervals [place] Rate: 112 P: 23 [place]: 163 QRS: -42 QRSD: 94 T: 127 QT: 342 QTc: 467 Interpretive Statements Sinus tachycardia Probable left atrial enlargement LVH with secondary repolarization abnormality Inferior infarct, old Anterior infarct, old Electronically Signed On 12-12-2024 12:20:36 PDT by Charles Beatty Please click the below link to view image of tracing.
[2024-12-12 10:17] LABS: Hematocrit 38.8 % (41.0-53.0); Hemoglobin 13.0 g/dL (13.5-17.5); Mean Corpuscular Hemoglobin 30.6 pg (28.0-32.0); Mean Corpuscular Volume 91.3 fL (80.0-100.0); Nucleated Red Blood Cells % 0.0 %
[2024-12-12 10:30] LABS: Anion Gap 8 (5-15); Carbon Dioxide 25 mmol/L (20-31); Potassium 4.4 mmol/L (3.5-5.1); Sodium 142 mmol/L (136-145)
[2024-12-12 10:31] LABS: Calcium 8.7 mg/dL (8.7-10.4)
--- NOTE | 2024-12-12 10:32 | DVHSR ---
APPROVED REPORT Exam: Stress echo, dobutamine viability study Indication: CAD BMI: 0 Stress Test Details Stress Test: Pharmacological stress testing performed using Dobutamine. HR Resting HR: 95 bpmMax Heart Rate (APMHR): 153 bpm Max HR Achieved: 108 bpmTarget HR (85% APMHR): 130 bpm % of APMHR: 71 Recovery HR: 96 bpm BP Resting BP: 104/65 mmHg Recovery BP: 106/74 mmHg ECG Resting ECG: Sinus Rhythm Clinical Reason for Termination: Completed protocol Nurse Comments A/Ox4 on 4L oxygen via NC. Connected to threat monitoring analyst, Vital signs assessed and WNL. TLC PICC line to RUE flushes well with NS. Reviewed POC, pt verbalized understanding. Angie special effects technician, at [facility] for echocardiogram. Dr Beatty at bedside for assessment. Dobutamine echo stress test performed per protocol. Pt tolerated well. Vital signs returned to basel ine. Pt assisted out of Stress Lab via w/c back to room. Dr Beatty to follow up with pt. Stress ECG Conclusion Dobutamine echo performed. Please see dictation in [employer] with full description and details of do butamine infusion and wall motion findings. In summary there was improved contractility of the anterolateral wall of the left ventricle and septa l crabtree as well as inferior crabtree. Low-dose dobutamine improved contractility. Dobutamine at 20 mcg/kg per minute caused dyskinesis of inferior and apical segments. The study was positive for viability. NM EXAM: Myocardial Perfusion REST/STRESS Imaging Protocol: Other Nuclear Conclusion Dobutamine echo performed. Please see dictation in [employer] with full description and details of do butamine infusion and wall motion findings. In summary there was improved contractility of the anterolateral wall of the left ventricle and septa l crabtree as well as inferior crabtree. Low-dose dobutamine improved contractility. Dobutamine at 20 mcg/kg per minute caused dyskinesis of inferior and apical segments. The study was positive for viability.
[2024-12-12 10:36] LABS: BUN/Creatinine Ratio 11.0 (10.0-20.0); Blood Urea Nitrogen 9 mg/dL (9-23); Glucose 99 mg/dL (74-106)
[2024-12-12 10:43] LABS: Chloride 109 mmol/L (98-107)
--- NOTE | 2024-12-12 12:04 | DVHSR ---
APPROVED REPORT EXAM: Two-dimensional and M-mode echocardiogram with Doppler and color Doppler. Blood Pressure: 86/43 mmHg INDICATION Assess LV Function R/O Tamponade RISK FACTORS Height: 5' 11", Weight: 158 DIMENSIONS LVDd6.7 (3.8-5.7cm)LA (2D)3.3 (1.9-4.0cm)Aortic Root (2.0-3.7cm) LVDs6.4 (2.5-4.0cm)LA (MM) (1.9-4.0cm)Aortic Cusp Exc (1.5-2.0cm) EF (%) 10.0 (55-70%)Rt. Atrium3.9 (1.9-4.0cm)Asc. Aorta cm IVSd1.1 (0.7-1.1cm)RV (D) (1.8-2.4cm) PWd1.0 (0.7-1.1cm) Mitral Valve MitralMitral Stenosis A wavem/sMV Peak GR.74mmHg E/A ratio0.02D MVAcm2 Aortic Valve Aortic ValveAortic Stenosis LVOT Diameter2.7 (1.8-2.4cm)Doppler AVAcm2 Pulmonic Valve V20.73m/s Tricuspid Valve TR Velocity2.63m/s [id number] Conclusion Technically good study. Sinus rhythm. Biatrial and biventricular enlargement. Mild aortic sclerosis. Mitral structurally normal. Tricuspid and pulmonic normal. Left ventricular systolic function is markedly diminished. There is severe global hypokinesis howeve r there is mild improvement compared to previous echocardiogram pertaining to the inferior and anteri or apical segments of the left ventricle. EF is still low but about 15% with mild improvement compar ed to last echo as mentioned. Dopplers unremarkable. No pericardial effusion masses or vegetations.
--- NOTE | 2024-12-12 13:34 | DVHPN2 ---
Consult Progress Note Subjective Other Systems: The patient is in normal sinus rhythm on cardiac exercise specialist at time of assessment. Episodes of sinus bradycardia overnight without any significant pauses or atrioventricular blocks. The patient also noted to have nonsustained 8-beat run of Vtach this morning. Objective vital signs Vital Sign Date Time Temp Pulse Resp B/P (MAP) Pulse Ox O2 Delivery O2 Flow Rate FiO2 12/12/24 10:36 80/56 12/12/24 10:30 98 18 98 12/12/24 10:00 Room Air* 0 21 12/12/24 08:00 98.1 98.1 Total Intake and Output 12/11/24 12/11/24 12/12/24 15:00 23:00 07:00 Intake Total 595.80 ml 2062.810 ml 1159.68 ml Output Total 1100 ml 2950 ml Balance 595.80 ml 962.810 ml -1790.32 ml medications Current Medications Medications Dose Ordered Sig/Dona Route Start Time Stop Time Status Last Admin Dose Admin Ondansetron HCl 4 mg Q4HP PRN IV 11/19/24 08:45 Docusate Sodium 100 mg BIDPRN PRN PO 11/19/24 08:45 Acetaminophen 650 mg Q6HP PRN PO 11/19/24 08:45 11/28/24 14:14 650 MG Nitroglycerin 0.4 mg Q5MINP PRN SL 11/19/24 08:45 Sodium Chloride 10 ml QSHIFT@ IV 11/25/24 22:00 12/12/24 10:26 10 ML Bisacodyl 10 mg DAILYP PRN WV 12/01/24 07:30 Morphine Sulfate 1 mg Q3HP PRN IV 11/30/24 14:15 11/30/24 14:29 1 MG Empaglifozin 10 mg DAILY PO 12/02/24 10:00 12/12/24 10:26 10 MG Pantoprazole Sodium 40 mg DAILY@0600 PO 12/03/24 06:00 12/12/24 05:20 40 MG Clopidogrel Bisulfate 75 mg DAILY PO 12/03/24 10:00 12/12/24 10:27 75 MG Aspirin 81 mg DAILY PO 12/02/24 10:00 12/12/24 10:27 81 MG Nicotine 1 patch DAILY TD 12/03/24 10:00 12/12/24 10:34 1 PATCH Atorvastatin Calcium 40 mg HS PO 12/05/24 22:00 12/11/24 21:32 40 MG Temazepam 15 mg HSPRN PRN PO 12/09/24 11:00 12/11/24 21:32 15 MG Norepinephrine Bitartrate 250 ml @ 3.75 mls/hr Q24H IV 12/11/24 14:00 12/11/24 23:17 18.75 MLS/HR Sodium Chloride 1 spr Q6HP EACHNOSTRI 12/12/24 12:00 Examination: GENERAL:Normal, LUNGS:Normal, CVS:Normal, NEURO:Normal laboratory and microbiology Laboratory Tests 12/12/24 10:02 Test 12/12/24 10:02 Range/Units Serum Glucose 99 74-106 mg/dL Problem List/Assessment/Plan Problem List/Assessment/Plan NSTEMI s/p PTCA with stenting to LAD and diagonal Cardiopulmonary arrest status post CPR with ROSC Mixed shock, cardiogenic & septic, resolved De Ginger, decompensated HFrEF, NYHA class IV Ischemic cardiomyopathy with LVEF of 10-15% Non-sustained ventricular tachycardia (<30 sec) Acute hypoxic respiratory failure Acute kidney injury, resolving Shock liver, resolved Hyperkalemia, resolved Methamphetamine/cannabinoid use PE ruled out Plan/Recommendations (Dr. Beatty) An initial transthoracic echocardiogram revealed an EF of 10-15% with severe global hypokinesis. A cardiac catheterization and coronary angiogram revealed multivessel disease for which the patient underwent a myocardial viability study deemed to be amenable for coronary intervention. The patient underwent a coronary angiogram with Impella assisted PTCA and stenting of the LAD and diagonal on 12/10/2024. A staged procedure to the RCA is recommended and can be done on an outpatient basis as per . Continue with dual antiplatelet therapy and lipid-lowering agent. At the time of assessment, the patient remains on low-dose vasopressor therapy. We will hold guideline directed medical therapy for CHF at this time given decreased blood pressure. Patient remains asymptomatic. A repeat transthoracic echocardiogram was done and reveals an EF is about 15% without evidence of effusion or tamponade. Continue with strict intake and output, daily weights, maintain fluid restriction, and low-sodium diet. Continue with close cardiac surveillance. Critical care time spent: 30 minutes. This medical document was created using an electronic medical record system with voice recognition software and computerized dictation system. Although this document has been carefully reviewed, there might still be some phonetic and typographical errors. Occasional wrong-word or ``sound-alike substitutions may have occurred due to the inherent limitations of voice recognition software. These areas are purely typographical due to imperfections of the software programs and do not reflect any compromise in the patient's medical care. Please read the chart carefully and recognize, using context, where these substitutions have occurred. Plan discussed with: Patient Dietary Evaluation Review Comments: Nutrition Recommendation: 1) TF Jevity 1.2Cal @ 70ml/hr x 24hr (goal rate) along with Pro-stat 1 pk daily. Start @ 20ml/hr, increase 10ml/hr Q4H until goal is reached. TF @ goal volume along with Pro-stat & Propofol provide 2116 kcal (100% energy needs), 108 gm protein (100% protein needs), 1356 ml free water. 2) Water flush 190 ml Q6H if allowed, adjust PRN 3) TPN if NPO >7 days 4) Monitor NPO status, lab values, wt trend, I/O Expected Outcomes/Goals: To meet >75% estimated needs Lab values to improve Fu 2-3 days Date of Service: Dec 12, 2024 Billing Provider: HEMA SCHWARZ Common Visit Codes: 07942-[id number] CARE 30-74 MIN HEMA SCHWARZ Dec 12, 2024 13:34
[2024-12-12] MEDS: SALINE 0.65 % NASAL SPRAY 45ML BOTTLE EACHNOSTRI SCH (13:43)
[2024-12-12] MEDS: MAGNESIUM SULFATE 1GM/100ML 100 ML IV ONE (15:26)
--- NOTE | 2024-12-12 23:20 | DVHPN2 ---
Progress Note - Dictate Date Seen: Dec 12, 2024 Medical Necessity Reason Pt with a Central, PICC or Fol: No Subjective Patient was seen and evaluated in follow up in the [facility]. Patient had episodes of sinus bradycardia overnight without any significant pauses or atrioventricular blocks. Patient on low dose vasopressors. Chest x-ray shows cardiomegaly with pulmonary vascular congestion. vital signs Vital Sign Date Time Temp Pulse Resp B/P (MAP) Pulse Ox O2 Delivery O2 Flow Rate FiO2 12/12/24 10:36 80/56 12/12/24 10:30 98 18 98 12/12/24 10:00 Room Air* 0 21 12/12/24 08:00 98.1 98.1 Total Intake and Output 12/11/24 12/11/24 12/12/24 15:00 23:00 07:00 Intake Total 595.80 ml 2062.810 ml 1159.68 ml Output Total 1100 ml 2950 ml Balance 595.80 ml 962.810 ml -1790.32 ml medications Current Medications Medications Dose Ordered Sig/Dona Route Start Time Stop Time Status Last Admin Dose Admin Ondansetron HCl 4 mg Q4HP PRN IV 11/19/24 08:45 Docusate Sodium 100 mg BIDPRN PRN PO 11/19/24 08:45 Acetaminophen 650 mg Q6HP PRN PO 11/19/24 08:45 11/28/24 14:14 650 MG Nitroglycerin 0.4 mg Q5MINP PRN SL 11/19/24 08:45 Sodium Chloride 10 ml QSHIFT@ IV 11/25/24 22:00 12/12/24 10:26 10 ML Bisacodyl 10 mg DAILYP PRN CA 12/01/24 07:30 Morphine Sulfate 1 mg Q3HP PRN IV 11/30/24 14:15 11/30/24 14:29 1 MG Empaglifozin 10 mg DAILY PO 12/02/24 10:00 12/12/24 10:26 10 MG Pantoprazole Sodium 40 mg DAILY@0600 PO 12/03/24 06:00 12/12/24 05:20 40 MG Clopidogrel Bisulfate 75 mg DAILY PO 12/03/24 10:00 12/12/24 10:27 75 MG Aspirin 81 mg DAILY PO 12/02/24 10:00 12/12/24 10:27 81 MG Nicotine 1 patch DAILY TD 12/03/24 10:00 12/12/24 10:34 1 PATCH Atorvastatin Calcium 40 mg HS PO 12/05/24 22:00 12/11/24 21:32 40 MG Temazepam 15 mg HSPRN PRN PO 12/09/24 11:00 12/11/24 21:32 15 MG Norepinephrine Bitartrate 250 ml @ 3.75 mls/hr Q24H IV 12/11/24 14:00 12/11/24 23:17 18.75 MLS/HR Sodium Chloride 1 spr Q6HP EACHNOSTRI 12/12/24 12:00 objective GENERAL: Alert and oriented x 3. No acute distress. EYES: PERRL, EOMI. Anicteric. HENT: Moist mucous membranes. LUNGS: Decreased breath sounds. CARDIOVASCULAR: Regular rate and rhythm. ABDOMEN: Soft, nontender and nondistended. EXTREMITIES: No edema. NEUROLOGIC: No focal neurological deficits. SKIN: Warm, dry. laboratory and microbiology Laboratory Tests 12/12/24 10:02 Test 12/12/24 10:02 Range/Units Serum Glucose 99 74-106 mg/dL Problem List CAD ischemic cardiomyopathy. Cardiopulmonary arrest status post CPR with ROSC. Mixed shock, cardiogenic versus septic. De Ginger, decompensated HFrEF, NYHA class IV. NSTEMI, with severe coronary artery disease. Moderate tricuspid valve regurgitation. Acute hypoxic respiratory failure. Acute kidney injury. Bacteremia. Hyperkalemia, resolved. Shock liver. History of methamphetamine use. Assessment/Plan Continued all current supportive medical care. Nitro SL. Aspirin, Plavix. GI prophylactics. Additional plan as per the hospital course. Critical care time of 45 minutes provided to include time spent evaluation of patient at bedside, when appropriate patient/family education for diagnosis, treatment plan, review of pertinent medical information and discussion of care with specialty providers and PCP. Dietary Evaluation Review Comments: Nutrition Recommendation: 1) TF Jevity 1.2Cal @ 70ml/hr x 24hr (goal rate) along with Pro-stat 1 pk daily. Start @ 20ml/hr, increase 10ml/hr Q4H until goal is reached. TF @ goal volume along with Pro-stat & Propofol provide 2116 kcal (100% energy needs), 108 gm protein (100% protein needs), 1356 ml free water. 2) Water flush 190 ml Q6H if allowed, adjust PRN 3) TPN if NPO >7 days 4) Monitor NPO status, lab values, wt trend, I/O Expected Outcomes/Goals: To meet >75% estimated needs Lab values to improve Fu 2-3 days Plan discussed with: Patient SULAIMAN MALLOY MD Dec 12, 2024 12:18
[2024-12-13] VITALS (23 sets, daily range): BP systolic 89–119; BP diastolic 53–89; PULSE 80–101; RESP 13–26; TEMP 98; O2SAT 93–99
[2024-12-13] MEDS: PANTOPRAZOLE 40 MG TAB PO SCH (06:00)
[2024-12-13] MEDS ORDERED: NITROGLYCERIN 0.4 MG SL TAB SL PRN (06:45)
[2024-12-13] MEDS ORDERED: MORPHINE SULFATE INJ 2 MG/ml SYRG IV PRN (06:45)
[2024-12-13] MEDS ORDERED: BISACODYL 10 MG RECT SUPP PR PRN (06:45)
[2024-12-13] MEDS ORDERED: DOCUSATE SOD 100 MG CAP PO PRN (06:45)
[2024-12-13] MEDS: PANTOPRAZOLE 40 MG TAB PO ONE (06:45)
[2024-12-13] MEDS ORDERED: ONDANSETRON HCL 4 MG/2 ML VIAL IV PRN (06:45)
[2024-12-13] MEDS ORDERED: ACETAMINOPHEN 325 MG TAB PO PRN (06:45)
[2024-12-13] MEDS ORDERED: TEMAZEPAM 15 MG CAP PO PRN (07:00)
[2024-12-13] MEDS: NOREPINEPHRINE 8 MG/250ML KIT 250 ML IV SCH (07:00)
[2024-12-13] MEDS ORDERED: LISI2.5T47 PO (07:31)
[2024-12-13] MEDS ORDERED: ASPI1TAB20 PO (07:31)
[2024-12-13] MEDS ORDERED: EMPA1TAB PO (07:31)
[2024-12-13] MEDS ORDERED: CLOP75TA28 PO (07:31)
--- NOTE | 2024-12-13 09:07 | DVHDS2 ---
Discharge Summary Date of Admission Nov 19, 2024 at 08:32 Date of Discharge: Dec 13, 2024 Admitting Diagnosis Acute hypoxic respiratory failure Labs/Diagnostic Data: Laboratory Results Test 12/12/24 14:02 12/12/24 10:02 12/10/24 06:03 12/10/24 04:00 Magnesium Level 1.7 mg/dL (1.6-2.6) White Blood Count 7.3 10^3/uL (4.4-10.8) Red Blood Count 4.25 10^6/uL (4.5-5.90) Hemoglobin 13.0 g/dL (13.5-17.5) Hematocrit 38.8 % (41.0-53.0) Mean Corpuscular Volume 91.3 fL (80.0-100.0) Mean Corpuscular Hemoglobin 30.6 pg (28.0-32.0) Mean Corpuscular Hemoglobin Concent 33.5 g/dL (32.0-36.0) Red Cell Distribution Width 15.3 % (11.8-14.3) Platelet Count 260 10^3/uL (140-450) Mean Platelet Volume 7.7 fL (6.9-10.8) Neutrophils (%) (Auto) 61.9 % (37.0-80.0) Lymphocytes (%) (Auto) 24.6 % (10.0-50.0) Monocytes (%) (Auto) 9.7 % (0.0-12.0) Eosinophils (%) (Auto) 3.2 % (0.0-7.0) Basophils (%) (Auto) 0.6 % (0.0-2.0) Neutrophils # (Auto) 4.5 10 ^3/uL (1.6-8.6) Lymphocytes # (Auto) 1.8 10 ^3/uL (0.4-5.4) Monocytes # (Auto) 0.7 10 ^3/uL (0-1.3) Eosinophils # (Auto) 0.2 10 ^3/uL (0-0.8) Basophils # (Auto) 0 10 ^3/uL (0-0.2) Nucleated Red Blood Cells 0.0 % Sodium Level 142 mmol/L (136-145) Potassium Level 4.4 mmol/L (3.5-5.1) Chloride Level 109 mmol/L (98-107) Carbon Dioxide Level 25 mmol/L (20-31) Anion Gap 8 (5-15) Blood Urea Nitrogen 9 mg/dL (9-23) Creatinine 0.82 mg/dL (0.700-1.30) Glomerular Filtration Rate Calc 96 mL/min (>90) BUN/Creatinine Ratio 11.0 (10.0-20.0) Serum Glucose 99 mg/dL (74-106) Calcium Level 8.7 mg/dL (8.7-10.4) Prothrombin Time 11.2 sec (9.3-11.8) Prothrombin Time INR 1.06 (0.9-1.15) Activated Partial Thromboplast Time 27.3 SEC (24.5-34.5) Total Bilirubin 0.7 mg/dL (0.2-1.0) Aspartate Amino Transferase (AST) 56 U/L (13-40) Alanine Aminotransferase (ALT) 60 U/L (7-40) Alkaline Phosphatase 85 U/L (46-116) Total Protein 6.7 g/dL (5.7-8.2) Albumin 3.9 g/dL (3.2-4.8) Urine Color Light-yellow (Yellow) Urine Clarity Clear (Clear) Urine pH 6.0 (5.0-9.0) Urine Specific [place] 1.012 (1.001-1.035) Urine Protein Negative (Negative) Urine Ketones Negative (Negative) Urine Blood Negative /uL (Negative) Urine Nitrite Negative (Negative) Urine Bilirubin Negative (Negative) Urine Urobilinogen Normal mg/dL (Negative) Urine Leukocyte Esterase Negative /uL (Negative) Urine RBC 1 /hpf (0 - 3) Urine Microscopic WBC 1 /HPF (0-3) Urine Squamous Epithelial Cells Few /hpf (<5) Urine Bacteria None seen /hpf (None Seen) Urine Glucose 4+ mg/dL (Normal) Test 12/03/24 01:08 12/02/24 17:24 11/30/24 07:40 11/29/24 09:00 Phosphorus Level 3.3 mg/dL (2.4-5.1) POC Glucose 125 mg/dl (70-106) Blood Gas Specimen Type Arterial Blood Gas Sample Site Left radial Blood Gas Patient Temperature 37.0 Arterial Blood Date Drawn [id number] Arterial Blood pH 7.439 (7.350-7.450) Arterial Blood Partial Pressure CO2 39.3 mmHg (35.0-48.0) Arterial Blood Partial Pressure O2 72.6 mmHg (83.0-108.0) Arterial Blood HCO3 26.0 mmol/L (21.0-28.0) Arterial Blood Oxygen Saturation 95.5 % (94.0-98.0) Arterial Blood Base Excess 1.9 mmol/L (-2.0-3.0) Arterial Blood Oxyhemoglobin 93.6 % (94.0-98.0) Arterial Blood Carboxyhemoglobin 1.7 % (0.5-1.5) Arterial Blood Methemoglobin 0.3 % (0.0-1.5) Darci Test Modified Blood Gas Total Hemoglobin 14.60 g/dL (13.5-17.5) Blood Gas Modality Vent - cpap FiO2 % 30.0 Blood Gas Pressure Support 8 Blood Gas PEEP or CPAP 5.0 Blood Gas Comments Cpap: ps 8, peep 5 Blood Gas Critical Value Read Back Yes Blood Gas Notified Whom enzo Shelley np Blood Gas Notified Time [id number] Blood Gas Notified By Court Transcriber jennifer oliva Test 11/29/24 06:37 11/25/24 03:21 11/21/24 03:07 11/20/24 11:25 Blood Gas Set Respiration Rate 18.0 Blood Gas Tidal Volume 470.0 B-Type Natriuretic Peptide 904.76 pg/mL (0-100) Random Vancomycin Level 12.4 ug/mL (5-10) Ammonia 27 umol/L (11-32) Test 11/20/24 03:40 11/20/24 02:54 11/19/24 15:36 11/19/24 13:00 Blood Gas Spontaneous Rate 29 Differential Total Cells Counted 100.0 (100) Neutrophils % (Manual) 86 (37.0-80.0) Band Neutrophils % (Manual) 7 Lymphocytes % (Manual) 5 (10.0-50.0) Monocytes % (Manual) 2 (0-12) Eosinophils % (Manual) 0 (0-7) Basophils % (Manual) 0 (0.0-2.0) Metamyelocytes % (manual) 0 Myelocytes % (Manual) 0 Promyelocytes % (Manual) 0 Blast Cells % (Manual) 0 Reactive Lymphocytes 0 Platelet Estimate Adequate Creatine Kinase 139 U/L (46-171) Vitamin D 25-Hydroxy 41.4 ng/mL (30.0-100) Parathyroid Hormone (Intact) 224.6 pg/mL (18.4-80.1) Hepatitis B Surface Antigen Negative (Negative) Hepatitis C Antibody Positive (Negative) Triglycerides Level 41 mg/dL (< 150) Cholesterol Level 107 mg/dL (< 200) LDL Cholesterol 65 mg/dL (< 100) HDL Cholesterol 35 mg/dL (40-59) Thyroid Stimulating Hormone (TSH) 2.79 uIU/mL (0.55-4.78) Test 11/19/24 12:05 11/19/24 08:35 11/19/24 07:09 11/19/24 06:18 Hemoglobin A1c 5.8 % A1C (<5.7) Troponin I High Sensitivity 359 ng/L (</=54) Urine Osmolality 518 mOsm/kg Urine Creatinine 104.97 mg/dL (30.0-125.0) Urine Protein/Creatinine Ratio 1.03 Urine Sodium 21 mmol/L (40-220) Urine Total Protein 108.6 mg/dL (1-14) Urine Opiates Screen Neg (NEGATIVE) Urine Fentanyl Screen Neg (NEGATIVE) Urine Barbiturates Screen Neg (NEGATIVE) Urine Phencyclidine Screen Neg (NEGATIVE) Urine Amphetamines Screen Pos (NEGATIVE) Urine Benzodiazepines Screen Pos (NEGATIVE) Urine Cocaine Screen Neg (NEGATIVE) Urine Cannabinoids Screen Pos (NEGATIVE) D-Dimer, Quantitative 3.28 mg/L FEU (0.0-0.49) Blood Gas EPAP 8 Blood Gas IPAP 15 Other Laboratory Tests 12/12/24 10:02 Brief Hx & Hospital Course: History of Present Illness Charlie Vargas, is a 69-year-old male who came to the ER for shortness of breath. According to ER documentation patient came in with complaints of shortness of breath x 1 week. While in the ER he was given a breathing treatment and placed on oxygen. He continued to have shortness of breath, increased work of breathing, and anxiety. He was placed on a BiPAP, not tolerating due to anxiety, he was given IV Ativan 1mg x 3 doses as well as IV Lasix 40 mg x 2 doses. On my assessment patient was on a BiPAP, not responding to verbal sternal stimuli, painful stimuli, or when a Mayo catheter was placed. Flumazenil was ordered, but not given as patient began to wake up. I was not informed that the patient became awake. According to ER, the patient again was not tolerating the BiPAP, he was anxious, not following commands, and trying to pull at lines and the BiPAP. Patient was intubated by ER provider. ER documentation states the patient has history of hypertension and daily methamphetamine use. Course of hospitalization: Patient had challenging course hospitalization including cardiopulmonary arrest while undergoing CT angiogram of the chest rule out pulmonary embolism. R esuscitative efforts were immediately successful. Patient had unremarkable CT angiogram of the chest which was negative for pulmonary embolism. Patient did have shock liver, acute kidney injury, as well as encephalopathy while in the hospital. Patient was found to have poor ejection fraction less than 10%. Patient was successfully extubated, found to have no neurological deficits. Patient was taken to the cardiac catheterization lab, undergoing Impella placement with PTCA and stent placement of LAD and diagonal artery. Patient was also noted to have disease to RCA which will be addressed at a later time. Postoperatively, patient was found to be hypotensive requiring vasopressor therapy which has been weaned off yesterday. Patient is now hemodynamically stable. Repeat echocardiogram post procedure reveals ejection fraction approximately 15% with no effusion/tamponade appreciated. Patient will have reinstitution of guideline directed medical therapy with beta blockers being held given patient had noted bradycardia while in the hospital. Patient will also have statins held given elevated LFTs as well as patient noted to have normal lipid panel. Given the patient's marginal blood pressure, he will be placed on lisinopril 2.5 mg p.o. daily, aspirin 81 mg p.o. daily, Plavix 75 mg p.o. daily, and Jardiance 10 mg p.o. daily. Spironolactone can be added at a later time once being assessed as an outpatient. Currently he is on room air. Chest x-ray has no evidence of pulmonary vascular congestion. Patient has ambulated without any need for DME. Patient will be discharged home under the care of his sister Yolette. Long discussion was made with Yolette prior to having PTCA given patient's current living arrangements and illicit drug use. She states that he will have a new place of residence for which she will assist with any of his medical care. Patient will follow up with the discharge Clinic in one week as well as Cardiology in 1-2 weeks. Patient is agreeable with discharge plan. All questions answered. Physical examination General: Alert and Oriented x3. No acute distress. Well-nourished. Eyes: EOMI. Anicteric. HENT: Moist mucous membranes. Lungs: Clear to auscultation bilaterally. No accessory muscle use. Cardiovascular: Regular rate and rhythm. No murmur. No JVD. Abdomen: Soft, non-tender and non-distended. No palpable masses. Extremities: No edema. Non-tender. Skin: No rashes or lesions. Warm. Neurologic: No focal neurological deficits. CN II-XII grossly intact, but not individually tested. Psychiatric: Cooperative. Appropriate mood and affect. Total time spent with patient discussing and formulating plan of care: 35 minutes. This medical document was created using an electronic medical record system with [employer] system. Although this document has been carefully reviewed, there may still be some phonetic and typographical errors. These areas are purely typographical due to imperfections of the software programs, and do not reflect any compromise in the patient's medical care. Consults/Reason for consult Cardiology: NSTEMI, CAD Operations or Procedures PTCA and stent placement to LAD and diagonal artery Condition at Discharge: Guarded Final Diagnosis/Problems List CAD ischemic cardiomyopathy Cardiopulmonary arrest -S/P cardiopulmonary arrest -Acute Hypoxic Respiratory Failure -Acute Decompensated Heart Failure -Hyperkalemia -Acute Kidney Injury/ VMN -Cardiogenic shock -Hx of Amphetamine use -NSTEMI type II -aspiration pneumonia -acute delirium Discharge Disposition: Home Discharge Instruct/Medications Diet: Cardiac 2g Na,low cholest Activity: No Restrictions, As Tolerated Follow Up/Referral: Follow up with Cardiology, Dr. Beatty in 1-2 weeks Follow up with the discharge Clinic in one week Medications: Lisinopril 2.5 mg p.o. daily Plavix 75 mg p.o. daily Aspirin 81 mg p.o. daily Jardiance 10 mg p.o. daily Scheduled Aspirin (Aspir-81), 1 TAB PO DAILY Cephalexin (Keflex), 500 MG PO TID Clopidogrel Bisulfate (Plavix), 1 TAB PO DAILY Empagliflozin (Jardiance), 10 MG PO DAILY Lisinopril (Lisinopril), 1 TAB PO DAILY Melatonin (Kp Melatonin), 5 MG PO HS, (Reported) No Reported Medication (No Reported Medication), 0 CO UNK, (Reported) Silver Sulfadiazine (Silver Sulfadiazine), 1 APPLIC TOP DAILY Scheduled PRN Tramadol Hcl (Tramadol Hcl), 50 MG PO Q6HP PRN 36 Discharge Statement: "Patient was advised to return to the ER or call 911 if any headaches, dizziness, shortness of breath, chest pain, abdominal pain, bleeding, fevers, or worsening of medical condition. Patient was counseled about treatment plan, medications, possible side effects, patientverbalized understanding. All questions were answered to the best of my ability. This discharge took greater then 30 minutes in planning, reviewing documentation, counseling the patient, and discussing with other team members." ASSESSMENT ASSESSMENT Assessment CAD ischemic cardiomyopathy Cardiopulmonary arrest Date of Service: Dec 13, 2024 Billing Provider: AURELIO SHELLEY NP Common Visit Codes: 02843-GZK/OBS DISCH DAY >30min AURELIO SHELLEY NP Dec 13, 2024 09:07
[2024-12-13] MEDS: SODIUM CHLOR 0.9% PF (SALINE LOCK) 10ML VIAL/SYR IV SCH (11:03)
[2024-12-13] MEDS: EMPAGLIFLOZIN 10 MG TAB PO SCH (11:03)
[2024-12-13] MEDS: CLOPIDOGREL BISULFATE 75 MG TAB PO SCH (11:04)
[2024-12-13] MEDS: NICOTINE 21MG/24 HR TOPICAL PATCH TD SCH (11:05)
[2024-12-13] MEDS: SALINE 0.65 % NASAL SPRAY 45ML BOTTLE EACHNOSTRI SCH (11:06)
--- NOTE | 2024-12-13 11:48 | DVHPN2 ---
Consult Progress Note Date Seen: Dec 13, 2024 Subjective Review of Systems: CVS:Normal, RESPIRATORY:Normal, NEURO:Normal Objective vital signs Vital Sign Date Time Temp Pulse Resp B/P (MAP) Pulse Ox O2 Delivery O2 Flow Rate FiO2 12/13/24 09:30 84 25 99/65 (76) 96 12/13/24 08:00 98.0 98.0 12/13/24 08:00 Room Air* 0 21 Total Intake and Output 12/12/24 12/12/24 12/13/24 15:00 23:00 07:00 Intake Total 1218.75 ml 825 ml 100 ml Output Total 2000 ml 1350 ml Balance 1218.75 ml -1175 ml -1250 ml medications Current Medications Medications Dose Ordered Sig/Dona Route Start Time Stop Time Status Last Admin Dose Admin Ondansetron HCl 4 mg Q4HP PRN IV 12/13/24 06:45 Docusate Sodium 100 mg BIDPRN PRN PO 12/13/24 06:45 Acetaminophen 650 mg Q6HP PRN PO 12/13/24 06:45 Nitroglycerin 0.4 mg Q5MINP PRN SL 12/13/24 06:45 Sodium Chloride 10 ml QSHIFT@10,22 IV 12/13/24 10:00 12/13/24 11:03 10 ML Bisacodyl 10 mg DAILYP PRN IN 12/13/24 06:45 Morphine Sulfate 1 mg Q3HP PRN IV 12/13/24 06:45 Empaglifozin 10 mg DAILY PO 12/13/24 10:00 12/13/24 11:03 10 MG Clopidogrel Bisulfate 75 mg DAILY PO 12/13/24 10:00 12/13/24 11:04 75 MG Aspirin 81 mg DAILY PO 12/13/24 10:00 12/13/24 11:03 81 MG Nicotine 1 patch DAILY TD 12/13/24 10:00 12/13/24 11:05 1 PATCH Atorvastatin Calcium 40 mg HS PO 12/13/24 22:00 Temazepam 15 mg HSPRN PRN PO 12/13/24 07:00 Norepinephrine Bitartrate 250 ml @ 3.75 mls/hr Q24H IV 12/13/24 07:00 Sodium Chloride 1 spr Q6HP EACHNOSTRI 12/13/24 12:00 12/13/24 11:06 1 SPR Pantoprazole Sodium 40 mg DAILY@0600 PO 12/14/24 06:00 Examination: LUNGS:Normal, CVS:Normal, NEURO:Normal laboratory and microbiology Laboratory Tests 12/12/24 10:02 Test 12/12/24 10:02 Range/Units Serum Glucose 99 74-106 mg/dL Problem List/Assessment/Plan Problem List/Assessment/Plan NSTEMI with multivessel disease s/p PTCA with stenting to LAD and diagonal Cardiopulmonary arrest status post CPR with ROSC Mixed shock, cardiogenic & septic, resolved De Ginger, decompensated HFrEF, NYHA class IV Ischemic cardiomyopathy with LVEF of 10-15% Non-sustained ventricular tachycardia (<30 sec) Acute hypoxic respiratory failure Acute kidney injury, resolving Shock liver, resolved Hyperkalemia, resolved Methamphetamine/cannabinoid use PE ruled out Plan/Recommendations (Dr. Beatty) A transthoracic echocardiogram reveals an EF of 10-15% with severe global hypokinesis. A cardiac catheterization and coronary angiogram revealed multivessel disease for which the patient underwent a myocardial viability study deemed to be amenable for coronary intervention. The patient underwent a coronary angiogram with Impella assisted PTCA and stenting of the LAD and diagonal on 12/10/2024 (see surgical report). An outpatient staged procedure to the RCA is recommended. In the meantime, continue with dual-antiplatelet therapy (uninterrupted x 1 year), lipid-lowering agent with high-intensity statin, and initiate GDMT for HFrEF as BP permits (SBP 90s-100s mmHg). Strongly counseled on medical compliance, Mediterranean diet, and risk factor modifications including drug abuse cessation. Follow-up with Cardiology within 1-2 weeks post discharge. Up for discharge per primary care team. Kindly call if in need of further recommendations. Signing off at this time. Thank you for allowing us to participate in this patient's care. Critical care time spent: 30 minutes. This medical document was created using an electronic medical record system with voice recognition software and computerized dictation system. Although this document has been carefully reviewed, there might still be some phonetic and typographical errors. Occasional wrong-word or ``sound-alike substitutions may have occurred due to the inherent limitations of voice recognition software. These areas are purely typographical due to imperfections of the software programs and do not reflect any compromise in the patient's medical care. Please read the chart carefully and recognize, using context, where these substitutions have occurred. Plan discussed with: Patient, Other Dietary Evaluation Review Comments: Nutrition Recommendation: 1) TF Jevity 1.2Cal @ 70ml/hr x 24hr (goal rate) along with Pro-stat 1 pk daily. Start @ 20ml/hr, increase 10ml/hr Q4H until goal is reached. TF @ goal volume along with Pro-stat & Propofol provide 2116 kcal (100% energy needs), 108 gm protein (100% protein needs), 1356 ml free water. 2) Water flush 190 ml Q6H if allowed, adjust PRN 3) TPN if NPO >7 days 4) Monitor NPO status, lab values, wt trend, I/O Expected Outcomes/Goals: To meet >75% estimated needs Lab values to improve Fu 2-3 days Date of Service: Dec 13, 2024 Billing Provider: LORETTA FRIAS Cardiology Common Codes: 52772-CGDCMDPT CARE 30-74 MIN LORETTA FRIAS Dec 13, 2024 11:48
--- NOTE | 2024-12-13 17:55 | DVHPN2 ---
Progress Note - Dictate Date Seen: Dec 13, 2024 Medical Necessity Reason Pt with a Central, PICC or Fol: No Subjective Patient was seen and evaluated in follow up in the [facility]. Patient has no new complaints at this time. Patient denies any cardiac symptoms. Patient is cardiac stable for discharge. vital signs Vital Sign Date Time Temp Pulse Resp B/P (MAP) Pulse Ox O2 Delivery O2 Flow Rate FiO2 12/13/24 10:28 98.0 86 13 95 12/13/24 09:30 99/65 (76) 12/13/24 08:00 Room Air* 0 21 Total Intake and Output 12/12/24 12/12/24 12/13/24 15:00 23:00 07:00 Intake Total 1218.75 ml 825 ml 100 ml Output Total 2000 ml 1350 ml Balance 1218.75 ml -1175 ml -1250 ml medications Current Medications Medications Dose Ordered Sig/Dona Route Start Time Stop Time Status Last Admin Dose Admin Ondansetron HCl 4 mg Q4HP PRN IV 12/13/24 06:45 Docusate Sodium 100 mg BIDPRN PRN PO 12/13/24 06:45 Acetaminophen 650 mg Q6HP PRN PO 12/13/24 06:45 Nitroglycerin 0.4 mg Q5MINP PRN SL 12/13/24 06:45 Sodium Chloride 10 ml QSHIFT@10,22 IV 12/13/24 10:00 12/13/24 11:03 10 ML Bisacodyl 10 mg DAILYP PRN OK 12/13/24 06:45 Morphine Sulfate 1 mg Q3HP PRN IV 12/13/24 06:45 Empaglifozin 10 mg DAILY PO 12/13/24 10:00 12/13/24 11:03 10 MG Clopidogrel Bisulfate 75 mg DAILY PO 12/13/24 10:00 12/13/24 11:04 75 MG Aspirin 81 mg DAILY PO 12/13/24 10:00 12/13/24 11:03 81 MG Nicotine 1 patch DAILY TD 12/13/24 10:00 12/13/24 11:05 1 PATCH Atorvastatin Calcium 40 mg HS PO 12/13/24 22:00 Temazepam 15 mg HSPRN PRN PO 12/13/24 07:00 Norepinephrine Bitartrate 250 ml @ 3.75 mls/hr Q24H IV 12/13/24 07:00 Sodium Chloride 1 spr Q6HP EACHNOSTRI 12/13/24 12:00 12/13/24 11:06 1 SPR Pantoprazole Sodium 40 mg DAILY@0600 PO 12/14/24 06:00 objective GENERAL: Alert and oriented x 3. No acute distress. EYES: PERRL, EOMI. Anicteric. HENT: Moist mucous membranes. LUNGS: Decreased breath sounds. CARDIOVASCULAR: Regular rate and rhythm. ABDOMEN: Soft, nontender and nondistended. EXTREMITIES: No edema. NEUROLOGIC: No focal neurological deficits. SKIN: Warm, dry. laboratory and microbiology Laboratory Tests 12/12/24 10:02 Test 12/12/24 10:02 Range/Units Serum Glucose 99 74-106 mg/dL Problem List CAD ischemic cardiomyopathy. Cardiopulmonary arrest status post CPR with ROSC. Mixed shock, cardiogenic versus septic. De Ginger, decompensated HFrEF, NYHA class IV. NSTEMI, with severe coronary artery disease. Moderate tricuspid valve regurgitation. Acute hypoxic respiratory failure. Acute kidney injury. Bacteremia. Hyperkalemia, resolved. Shock liver. History of methamphetamine use. Assessment/Plan Continued all current supportive medical care. Nitro SL. Aspirin, Plavix. GI prophylactics. Additional plan as per the hospital course. Critical care time of 45 minutes provided to include time spent evaluation of patient at bedside, when appropriate patient/family education for diagnosis, treatment plan, review of pertinent medical information and discussion of care with specialty providers and PCP. Dietary Evaluation Review Comments: Nutrition Recommendation: 1) TF Jevity 1.2Cal @ 70ml/hr x 24hr (goal rate) along with Pro-stat 1 pk daily. Start @ 20ml/hr, increase 10ml/hr Q4H until goal is reached. TF @ goal volume along with Pro-stat & Propofol provide 2116 kcal (100% energy needs), 108 gm protein (100% protein needs), 1356 ml free water. 2) Water flush 190 ml Q6H if allowed, adjust PRN 3) TPN if NPO >7 days 4) Monitor NPO status, lab values, wt trend, I/O Expected Outcomes/Goals: To meet >75% estimated needs Lab values to improve Fu 2-3 days Plan discussed with: Patient SULAIMAN MALLOY MD Dec 13, 2024 12:10
[2024-12-13] MEDS ORDERED: ATORVASTATIN 20 MG TAB PO SCH (22:00)
[2024-12-14] MEDS ORDERED: PANTOPRAZOLE 40 MG TAB PO SCH (06:00)
== END 2024-12-13 13:20 | disposition home or self-care (01) | DRG 216 ==
LOC: ER 04:27 → OVERFLOW 08:32 → ER 08:32 → OVERFLOW 12:00 → ICU WEST 11-20 01:06 → TELE-EAST 12-03 17:49 → DOU 12-10 17:53
PROVIDERS: ADMIT Nurse Practitioner Acute Care; ATTEND Nurse Practitioner Acute Care
PROC: 0BH17EZ Insertion of Endotracheal Airway into Trachea, Via Natural or Artificial Opening (ICD-10-PCS; 2024-11-19)
PROC: 5A1955Z Respiratory Ventilation, Greater than 96 Consecutive Hours (ICD-10-PCS; 2024-11-19)
PROC: 5A09357 Assistance with Respiratory Ventilation, Less than 24 Consecutive Hours, Continuous Positive Airway Pressure (ICD-10-PCS; 2024-11-19)
PROC: 06HY33Z Insertion of Infusion Device into Lower Vein, Percutaneous Approach (ICD-10-PCS; 2024-11-19)
PROC: 5A12012 Performance of Cardiac Output, Single, Manual (ICD-10-PCS; 2024-11-19)
PROC: 03HY32Z Insertion of Monitoring Device into Upper Artery, Percutaneous Approach (ICD-10-PCS; 2024-11-20)
PROC: 05HN33Z Insertion of Infusion Device into Left Internal Jugular Vein, Percutaneous Approach (ICD-10-PCS; 2024-11-24)
PROC: 02HV33Z Insertion of Infusion Device into Superior Vena Cava, Percutaneous Approach (ICD-10-PCS; 2024-11-25)
PROC: B548ZZA Ultrasonography of Superior Vena Cava, Guidance (ICD-10-PCS; 2024-11-25)
PROC: 4A023N7 Measurement of Cardiac Sampling and Pressure, Left Heart, Percutaneous Approach (ICD-10-PCS; 2024-11-26)
PROC: B211YZZ Fluoroscopy of Multiple Coronary Arteries using Other Contrast (ICD-10-PCS; 2024-11-26)
PROC: B215YZZ Fluoroscopy of Left Heart using Other Contrast (ICD-10-PCS; 2024-11-26)
PROC: B245ZZ4 Ultrasonography of Left Heart, Transesophageal (ICD-10-PCS; 2024-12-05)
PROC: 02HA3RJ Insertion of Short-term External Heart Assist System into Heart, Intraoperative, Percutaneous Approach (ICD-10-PCS; principal; 2024-12-10)
PROC: 5A0221D Assistance with Cardiac Output using Impeller Pump, Continuous (ICD-10-PCS; 2024-12-10)
PROC: 027135Z Dilation of Coronary Artery, Two Arteries with Two Drug-eluting Intraluminal Devices, Percutaneous Approach (ICD-10-PCS; 2024-12-10)
PROC: B240ZZ3 Ultrasonography of Single Coronary Artery, Intravascular (ICD-10-PCS; 2024-12-10)
DX: I25.10 Atherosclerotic heart disease of native coronary artery without angina pectoris (principal); I21.A1 Myocardial infarction type 2; K72.00 Acute and subacute hepatic failure without coma; I46.9 Cardiac arrest, cause unspecified; J69.0 Pneumonitis due to inhalation of food and vomit; N17.0 Acute kidney failure with tubular necrosis; J96.01 Acute respiratory failure with hypoxia; I50.23 Acute on chronic systolic (congestive) heart failure; J96.12 Chronic respiratory failure with hypercapnia; G93.49 Other encephalopathy; E87.0 Hyperosmolality and hypernatremia; E87.3 Alkalosis; I47.20 Ventricular tachycardia, unspecified; I13.0 Hypertensive heart and chronic kidney disease with heart failure and stage 1 through stage 4 chronic kidney disease, or unspecified chronic kidney disease; I42.0 Dilated cardiomyopathy; E87.5 Hyperkalemia; F15.10 Other stimulant abuse, uncomplicated; K74.60 Unspecified cirrhosis of liver; N18.9 Chronic kidney disease, unspecified; B19.20 Unspecified viral hepatitis C without hepatic coma; I07.1 Rheumatic tricuspid insufficiency; I25.5 Ischemic cardiomyopathy; I49.3 Ventricular premature depolarization; I45.9 Conduction disorder, unspecified; F41.9 Anxiety disorder, unspecified; F17.210 Nicotine dependence, cigarettes, uncomplicated; Z99.81 Dependence on supplemental oxygen; Z95.5 Presence of coronary angioplasty implant and graft; Z79.899 Other long term (current) drug therapy; Z79.84 Long term (current) use of oral hypoglycemic drugs; Z79.82 Long term (current) use of aspirin; Z79.02 Long term (current) use of antithrombotics/antiplatelets; Z51.5 Encounter for palliative care
CPT/HCPCS: 31500; 33990; 36415; 36556; 36569; 36600; 36620; 70450; 70498; 71045; 71275; 76775; 76937; 80048; 80053; 80061; 80202; 80307; 81001; 82140; 82306; 82550; 82570; 82805; 82962; 83036; 83735; 83880; 83935; 83970; 84100; 84132; 84156; 84300; 84443; 84484; 85007; 85014; 85018; 85025; 85027; 85379; 85610; 85730; 86803; 86850; 86900; 86901; 87040; 87070; 87076; 87077; 87081; 87205; 87340; 92610; 92941; 92950; 92978; 93005; 93017; 93306; 93350; 93458; 93970; 94002; 94003; 94640; 94660; 96361; 96374; 96375; 96376; 97110; 97116; 97163; 97530; 99152; C1887; G0378; J0461; J1815; J2250; J2405; J2470; J2543; J3480; J3490; Q9967

== ENCOUNTER 2024-12-29 14:51 | Inpatient (IN) | payer OTHER, MEDICAID ==
[~2024-12-29] VITALS: Ht 177.8 cm; Wt 72.1 kg
[~2024-12-29 14:51] MED LIST changes: +AMLO1TAB22 PO; +ASPI1TAB20 PO; +CLOP75TA28 PO; +EMPA1TAB PO; +LISI2.5T47 PO; +MELA3TAB27 PO
--- NOTE | 2024-12-29 15:26 | ECG ---
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
[2024-12-29 16:23] LABS: Hematocrit 45.2 % (41.0-53.0); Hemoglobin 14.9 g/dL (13.5-17.5); Mean Corpuscular Hemoglobin 30.3 pg (28.0-32.0); Mean Corpuscular Volume 91.7 fL (80.0-100.0); Nucleated Red Blood Cells % 0.1 %
--- NOTE | 2024-12-29 16:24 | ED.PDOC ---
History of Present Illness HPI Comments 69 year old male with PMHx HTN, CAD (recent stent 2 weeks ago) presents to the ED with a chief compliant of generalized weakness. Patient had two cardiac stents placed by Dr. Beatty on 12/10/24, was discharged on 12/13/24, was advised to follow up with Dr. Beatty as an outpatient in 1-2 weeks, will have a 3rd stent placed. Patient states he has tried to contact Dr. Beatty office, has not been able to get an appointment. Patient has been experiencing generalized weakness, fatigue for the past few days. He came to ED today, wants to consult with Dr. Beatty. Denies fever, chills, nausea, vomiting, diarrhea, chest pain, shortness of breath, dizziness. No other symptoms or modifying factors present at this time. Chief Complaint: General Weakness Time Seen by MD: 16:15 Primary Care Provider: NONE Reviewed Notes: Medications, Allergies Allergies: Coded Allergies: NO KNOWN ALLERGIES (Unverified , 11/19/24) Home Meds Active Scripts Lisinopril (Lisinopril) 2.5 Mg Tab, 1 TAB PO DAILY for 60 Days, #60 TAB 2 Refills Prov:AURELIO ZAMARRIPA [employer] 12/13/24 Empagliflozin (Jardiance) 10 Mg Tab, 10 MG PO DAILY for 30 Days, #60 TAB 1 Refill Prov:AURELIO ZAMARRIPA [employer] 12/13/24 Aspirin (Aspir-81) 81 Mg Tab, 1 TAB PO DAILY for 60 Days, #60 TAB 1 Refill Prov:AURELIO ZAMARRIPA [employer] 12/13/24 Clopidogrel Bisulfate (Plavix) 75 Mg Tab, 1 TAB PO DAILY for 60 Days, #60 TAB 1 Refill Prov:AURELIO ZAMARRIPA [employer] 12/13/24 Cephalexin (Keflex) 500 Mg Cap, 500 MG PO TID, #30 CAP Prov:GARY TONY N.P. 02/11/13 Tramadol Hcl (Tramadol Hcl) 50 Mg Tab, 50 MG PO Q6HP PRN, #30 TAB Prov:GARY TONY N.P. 02/11/13 Silver Sulfadiazine (Silver Sulfadiazine) 1 % Cre, 1 APPLIC TOP DAILY, #1 UNIT Prov:GARY TONY N.P. 02/11/13 Reported Medications Melatonin (KP MELATONIN) 3 Mg Tab, 5 MG PO HS, TAB 12/07/24 No Reported Medication (NO REPORTED MEDICATION) Ea, 0 CO UNK, EA PATIENT HAS NO REPORTED MEDICATIONS 02/11/13 Information Source: Patient Mode of Arrival: Ambulatory Severity: Moderate Timing: Days Duration: Since onset Prehospital treatment: None Past Medical History PAST MEDICAL HISTORY: CAD, HTN Surgical History: PTCA Family History Family History: Unobtainable Social History Smoker: Cigarettes, Greater Than 1 Pack/Day Alcohol: Denies ETOH Use Drugs: Denies Drug Use Lives In: Home Constitutional: reports: fatigue, weakness; denies: chills, diaphoresis, fever, malaise, sweats, others EENTM: denies: blurred vision, double vision, ear bleeding, ear discharge, ear drainage, ear pain, ear ringing, eye pain, eye redness, hearing loss, mouth pain, mouth swelling, nasal discharge, nose bleeding, nose congestion, nose pain, photophobia, tearing, throat pain, throat swelling, voice changes, others Respiratory: reports: shortness of breath Cardiovascular: reports: chest pain Gastrointestinal: denies: abdomen distended, abdominal pain, blood streaked bowels, constipated, diarrhea, dysphagia, difficulty swallowing, hematemesis, melena, nausea, poor appetite, poor fluid intake, rectal bleeding, rectal pain, vomiting, others Genitourinary: denies: burning, dysuria, flank pain, frequency, hematuria, incontinence, penile discharge, penile sore, pain, testicle pain, testicle swelling, urgency, others Neurological: reports: weakness; denies: dizziness, fainting, headache, left sided numbness, left sided weakness, numbness, paresthesia, pre-existing deficit, right sided numbness, right sided weakness, seizure, speech problems, tingling, tremors, others Musculoskeletal: denies: back pain, gout, joint pain, joint swelling, muscle pain, muscle stiffness, neck pain, others Integumetry: denies: bruises, change in color, change in hair/nails, dryness, laceration, lesions, lumps, rash, wounds, others Allergic/Immunocompromised: denies: Difficulty Healing, Frequent Infections, Hives, Itching, others Hematologic/Lymphatic: denies: anemia, blood clots, easy bleeding, easy bruising, swollen glands, others Endocrine: denies: excessive hunger, excessive sweating, excessive thirst, excessive urination, flushing, intolerance to cold, intolerance to heat, unexplained weight gain, unexplained weight loss, others Psychiatric: denies: anxiety, bipolar disorder, depression, hopeless, panic d isorder, schizophrenia, sleepless, suicidal, others All Other Systems: Reviewed and Negative Physical Exam General Appearance: Normal HEENT: Normal ENT Inspection, Pharynx Normal, TMs Normal Neck: Full Range of Motion, Non-Tender, Normal, Normal Inspection Respiratory: Chest Non-Tender, Lungs Clear, No Accessory Muscle Use, No Respiratory Distress, Normal Breath Sounds Cardiovascular: No Edema, No JVD, No Murmur, No Gallop, Normal Peripheral Pulses, Regular Rate/Rhythm Breast Exam: Deferred Gastrointestinal: No Organomegaly, Non Tender, No Pulsatile Mass, Normal Bowel Sounds, Soft Genitalia: Deferred Pelvic: Deferred Rectal: Deferred Extremities: No calf tenderness, Normal capillary refill, Normal inspection, Normal range of motion, Non-tender, No pedal edema Musculoskeletal : Apperance: Normal Neurologic: Alert, file conversion operator II-XII nml as Tested, No Motor Deficits, Normal Affect, Normal Mood, No Sensory Deficits Cerebellar Function: Normal Reflexes: Normal Skin: Dry, Normal Color, Warm Lymphatic: No Adenopathy Was a procedure done? Was a procedure done?: No EKG EKG : Pulse Rate (adult): 90 [place]: Normal Cardiac Rhythm: NSR Hypertrophy: LVH Comments Left anterior fascicular block, +PVCs Differential Dx Considerations may include: ACS vs CHF Exacerbation X-Ray, Labs, Meds, VS Vital Signs Date Time Temp Pulse Resp B/P (MAP) Pulse Ox O2 Delivery O2 Flow Rate FiO2 12/29/24 18:27 86 12/29/24 18:03 113/77 12/29/24 17:33 90 12/29/24 17:21 Nasal Cannula* 2 28 12/29/24 17:13 68 22 97 Room Air 12/29/24 17:13 98.9 68 22 128/78 (95) 97 98.9 12/29/24 15:03 90 12/29/24 14:53 97.0 101 20 120/77 100 97.0 Lab Test 12/29/24 17:57 12/29/24 16:05 Range/Units Troponin I High Sensitivity 22744 *H 14367 *H </=54 ng/L White Blood Count 7.3 4.4-10.8 10^3/uL Red Blood Count 4.93 4.5-5.90 10^6/uL Hemoglobin 14.9 13.5-17.5 g/dL Hematocrit 45.2 41.0-53.0 % Mean Corpuscular Volume 91.7 80.0-100.0 fL Mean Corpuscular Hemoglobin 30.3 28.0-32.0 pg Mean Corpuscular Hemoglobin Concent 33.0 32.0-36.0 g/dL Red Cell Distribution Width 16.9 H 11.8-14.3 % Platelet Count 277 140-450 10^3/uL Mean Platelet Volume 7.6 6.9-10.8 fL Neutrophils (%) (Auto) 54.4 37.0-80.0 % Lymphocytes (%) (Auto) 34.4 10.0-50.0 % Monocytes (%) (Auto) 6.9 0.0-12.0 % Eosinophils (%) (Auto) 3.4 0.0-7.0 % Basophils (%) (Auto) 0.9 0.0-2.0 % Neutrophils # (Auto) 4.0 1.6-8.6 10 ^3/uL Lymphocytes # (Auto) 2.5 0.4-5.4 10 ^3/uL Monocytes # (Auto) 0.5 0-1.3 10 ^3/uL Eosinophils # (Auto) 0.3 0-0.8 10 ^3/uL Basophils # (Auto) 0.1 0-0.2 10 ^3/uL Nucleated Red Blood Cells 0.1 % Prothrombin Time 11.1 9.3-11.8 sec Prothrombin Time INR 1.05 0.9-1.15 Activated Partial Thromboplast Time 26.8 24.5-34.5 SEC Sodium Level 142 136-145 mmol/L Potassium Level 3.7 3.5-5.1 mmol/L Chloride Level 107 98-107 mmol/L Carbon Dioxide Level 24 20-31 mmol/L Anion Gap 11 5-15 Blood Urea Nitrogen 10 9-23 mg/dL Creatinine 0.83 0.700-1.30 mg/dL Glomerular Filtration Rate Calc 96 >90 mL/min BUN/Creatinine Ratio 12.0 10.0-20.0 Serum Glucose 124 H 74-106 mg/dL Calcium Level 9.8 8.7-10.4 mg/dL B-Type Natriuretic Peptide 1667.05 0-100 pg/mL Current Medications Medications (Trade) Dose Ordered Sig/Dona Route Start Time Stop Time Status Last Admin Heparin Sodium (Porcine) 4,000 units ONCE ONCE IV 12/29/24 17:00 12/29/24 17:03 DC 12/29/24 18:06 Heparin Sodium/ Dextrose 250 ml @ 9 mls/hr Q24H IV 12/29/24 17:00 12/29/24 18:08 Aspirin 325 mg ONCE ONCE PO 12/29/24 17:00 12/29/24 17:03 DC 12/29/24 18:01 Atorvastatin Calcium (Lipitor) 80 mg ONCE ONCE PO 12/29/24 17:00 12/29/24 17:03 DC 12/29/24 18:01 Furosemide (Lasix Injection) 40 mg ONCE ONCE IV 12/29/24 17:45 12/29/24 17:46 DC 12/29/24 18:03 [place] [id number] Ph: [phone] DIAGNOSTIC IMAGING Diagnostic Imaging Report : [id number] Signed PATIENT: LEONOR GRAF ACCT: [id number] UNIT: [id number] : 1955 LOC: ER ROOM / BED: / AGE / SEX: 69 / M ADM STATUS: REG ER SERVICE [id number] ORDERING PHYSICIAN: KRZYSZTOF SHABAZZ MD PROCEDURE(s): CXR1 - CHEST XRAY 1 VIEW REASON: Chest Pain ORDER NUMBER(s): [id number], ACCESSION NUMBER(s): [id number] CHEST RADIOGRAPH Indication: Chest Pain Technique: Single frontal view of the chest was obtained Comparison: XY CHEST XRAY 1 VIEW on DOS: 12/12/24, XY CHEST PORTABLE on DOS: 12/10/24, XY CHEST XRAY 1 VIEW on DOS: 12/08/24 FINDINGS: Lines and Tubes: None Lungs: Decreased pulmonary vascular congestion when compared to on 05/2024. Pleura: No effusion. No pneumothorax. Cardiomediastinal contours: Stable when compared to 12/12/2024 Bones: No acute osseous abnormality. IMPRESSION: 1. Persistent cardiomegaly. 2. Decreased pulmonary vascular congestion when compared 12/12/2024. ATED BY: TITI TOM Jr., DO DICTATED DATE/TIME: 12/29/241707 SIGNED BY: TITI TOM Jr., SIGNED DATE/TIME: 12/29/241707 CC: Time of 1ST Reevaluation: 16:45 Reevaluation 1ST: Unchanged Time of 2ND Reevaluation: 19:21 (Patient reporting some improvement after me dications administered. Being admitted for further management.) Patient Education/Counseling: Diagnosis, Treatment, Prognosis Family Education/Counseling: No Family Present SEPSIS Sepsis Screen Date sepsis recognized/suspect: Dec 29, 2024 Time Sepsis recognized/suspect: 1452 Recent Procedure: No On Antibiotic Therapy: No Respiratory Rate >20: No Heart Rate >90: Yes Temp<36 C (96.8 F) or >38.3 C: No SBP <90 or MAP <65 mmHG: No New Acute Mental Status Change: No Is the patient on CPAP, BIPAP,: No Physician Orders Chest Xray 1 View (12/29/24 15:42) Electrocardigram (12/29/24 17:28) Platelet Monitoring (12/29/24 17:00) Heparin Per Standardized Proce (12/29/24 17:00) Discontinue All Im Injections (12/29/24 17:00) Heparin Drip/D5w 100units/Ml (12/29/24 17:00) Stat Ekg For Chest Pain (12/29/24 17:00) Troponin-I Hs (12/29/24 18:35) PTPTT (12/30/24 00:00) Heparin Per Pharmacy Protocol (12/29/24 18:30) * Cardiology Consult (12/29/24 19:03) Clopidogrel Bisulfate (Plavix) (12/30/24 10:00) Aspirin Tablet (12/30/24 10:00) Empagliflozin (Jardiance) (12/30/24 10:00) Lisinopril Tablet (Zestril Tablet) (12/30/24 10:00) Losartan Tablet (Cozaar Tablet) (12/30/24 10:00) Basic Metabolic Panel (12/30/24 04:00) Admit (12/29/24 19:03) Ondansetron Hcl (Zofran) (12/29/24 19:15) Complete Blood Count (12/30/24 04:00) Cardiac Diet-2gna,Lofat,Lochol (12/30/24 Breakfast) Condition: Fair (12/29/24 19:03) Acetaminophen Tablet (Tylenol Tablet) (12/29/24 19:15) Bedrest With Bathroom Privileg (12/29/24 19:03) Nitroglycerin Sublingual (Ntrostat Subli (12/29/24 19:15) Morphine Sulfate Injection (12/29/24 19:15) Notify Of Changes From Base (12/29/24 19:03) Route Inspector For 24 Hours (12/29/24 19:03) Emergency Dysrhythmia Protocol (12/29/24 19:03) Rhythm Strips Once Every Shift (12/29/24 19:03) Oxygen By Nasal Cannula (12/29/24 19:03) Npo After Midnight (12/29/24 19:03) Npo (Nothing By Mouth) Diet (12/30/24 Breakfast) Vital Signs Date Time Temp Pulse Resp B/P (MAP) Pulse Ox O2 Delivery O2 Flow Rate FiO2 12/29/24 18:27 86 12/29/24 18:03 113/77 12/29/24 17:33 90 12/29/24 17:21 Nasal Cannula* 2 28 12/29/24 17:13 68 22 97 Room Air 12/29/24 17:13 98.9 68 22 128/78 (95) 97 98.9 12/29/24 15:03 90 12/29/24 14:53 97.0 101 20 120/77 100 97.0 Laboratory Tests Test 12/29/24 16:05 White Blood Count 7.3 10^3/uL (4.4-10.8) Medications Medications Dose Ordered Sig/Dona Route Start Time Stop Time Status Last Admin Dose Admin Aspirin 325 mg ONCE ONCE PO 12/29/24 17:00 12/29/24 17:03 DC 12/29/24 18:01 Atorvastatin Calcium 80 mg ONCE ONCE PO 12/29/24 17:00 12/29/24 17:03 DC 12/29/24 18:01 Furosemide 40 mg ONCE ONCE IV 12/29/24 17:45 12/29/24 17:46 DC 12/29/24 18:03 Heparin Sodium (Porcine) 4,000 units ONCE ONCE IV 12/29/24 17:00 12/29/24 17:03 DC 12/29/24 18:06 Heparin Sodium/ Dextrose 250 ml @ 9 mls/hr Q24H IV 12/29/24 17:00 12/29/24 18:08 Departure 1 Departure Time of Disposition: 17:31 (69-year-old male with past medical history of hypertension, coronary artery disease (recent stent) presenting for generalized weakness, fatigue, shortness of breath since being discharged from the hospital approximately 2 weeks ago. Patient was told that he had additional coronary artery disease that would require additional intervention by blow torch operator, Dr. Beatty. Given this history with current symptoms highly concerning for recurrent ACS. EKG upon arrival with no signs of acute ischemia. However, patient's [place] [address]. Patient given oral aspirin, statin and started on heparin drip. Patient reporting subjective shortness of breath, past x-ray was performed which shows that the patient has pulmonary vascular congestion, BNP today is in the 1600s, seems consistent with acute heart failure exacerbation. Will be given IV Lasix for this. Patient will be admitted for further workup and management of ACS and heart failure exacerbation. ) Impression: Primary Impression: ACS (acute coronary syndrome) Additional Impressions: NSTEMI (non-ST elevated myocardial infarction) Acute exacerbation of CHF (congestive heart failure) Disposition: ADMITTED INPATIENT Admit to: Tele Condition: Fair Critical Care Note Critical Care Time?: Yes (45 min-critical care time only) Critical care comment: Patient with shortness of breath, signs of active ACS with elevated troponin requiring heparin administration, aspirin, high-dose statin. Stability Stability form required: No Heart Score Heart Score: Heart Score Response (Comments) Value History Highly Suspicious 2 EKG Normal 0 Age >65 2 Risk Factors >3 or Hx ASHD 2 Troponin >3 x's Normal limit 2 Total 8 I personally scribed for KRZYSZTOF SHABAZZ MD ([email or web address]) on 12/29/24 at 16:31. Electronically submitted by Marlen Pham ([email or web address]). I personally scribed for KRZYSZTOF SHABAZZ MD ([email or web address]) on 12/29/24 at 17:14. Electronically submitted by Marlen Pham ([email or web address]). KRZYSZTOF SHABAZZ MD Dec 29, 2024 16:24
[2024-12-29 16:31] LABS: Chloride 107 mmol/L (98-107); Potassium 3.7 mmol/L (3.5-5.1); Sodium 142 mmol/L (136-145)
[2024-12-29 16:32] LABS: Anion Gap 11 (5-15); Carbon Dioxide 24 mmol/L (20-31)
[2024-12-29 16:33] LABS: Calcium 9.8 mg/dL (8.7-10.4)
[2024-12-29 16:37] LABS: BUN/Creatinine Ratio 12.0 (10.0-20.0); Blood Urea Nitrogen 10 mg/dL (9-23); Glucose 124 mg/dL (74-106)
--- NOTE | 2024-12-29 17:10 | DVH ---
CHEST RADIOGRAPH Indication: Chest Pain Technique: Single frontal view of the chest was obtained Comparison: XY CHEST XRAY 1 VIEW on DOS: 12/12/24, XY CHEST PORTABLE on DOS: 12/10/24, XY CHEST XRAY 1 VIEW on DOS: 12/08/24 FINDINGS: Lines and Tubes: None Lungs: Decreased pulmonary vascular congestion when compared to on 05/2024. Pleura: No effusion. No pneumothorax. Cardiomediastinal contours: Stable when compared to 12/12/2024 Bones: No acute osseous abnormality. IMPRESSION: 1. Persistent cardiomegaly. 2. Decreased pulmonary vascular congestion when compared 12/12/2024.
[2024-12-29 17:34] LABS: INR 1.05 (0.9-1.15); Partial Thromboplastin Time 26.8 SEC (24.5-34.5); Prothrombin Time 11.1 sec (9.3-11.8)
[2024-12-29] MEDS: ATORVASTATIN 20 MG TAB PO ONE (18:01)
[2024-12-29] MEDS: FUROSEMIDE 40 MG/4 ML VIAL IV ONE (18:03)
[2024-12-29] MEDS: HEPARIN SODIUM (PORCINE) 5000 UNITS/ML 1ML VIAL IV ONE (18:06)
[2024-12-29] MEDS: HEPARIN DRIP/D5W 100UNITS/ML 250 ML IV SCH (18:08)
--- NOTE | 2024-12-29 18:16 | CONS ---
Pharmacy Clinical Information: HEPARIN PER RX PROTOCOL SPOKE TO SELMA SANTIAGO REGARDING new heparin drip order CURRENT aPTT: 26.8 on 12/29/2024 at 16:05 BOLUS: 4000 UNITS IVP BOLUS X1 Initial heparin drip rate: 900 units/hr Date and time new dose started: 12/29/2024 at 18:08 Next aPTT: 12/30/2024 at 0000 SELMA SANTIAGO READ BACK initial heparin drip rate: 900 UNITS/HR MARSHALL Bishop Dec 29, 2024 18:16
[2024-12-29] MEDS ORDERED: ONDANSETRON HCL 4 MG/2 ML VIAL IV PRN (19:15)
[2024-12-29] MEDS ORDERED: ACETAMINOPHEN 325 MG TAB PO PRN (19:15)
[2024-12-29] MEDS ORDERED: NITROGLYCERIN 0.4 MG SL TAB SL PRN (19:15)
[2024-12-29] MEDS ORDERED: MORPHINE SULFATE INJ 2 MG/ml SYRG IV PRN (19:15)
--- NOTE | 2024-12-29 23:48 | DVHHP2 ---
History of Present Illness Reason for Visit: Shortness for breath History of Present Illness 69-year-old male presents for evaluation of shortness for breath. 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 Today he returns with worsening shortness for breath, dizziness and fatigue. Denies chest pain. Past Medical History Hypertension and CAD Past Surgical History PTCA Family History Noncontributory Smoke: <1 pack per day ALCOHOL: none Drugs: None Lives: with Family Review of Systems Review of Systems Review of systems are currently negative otherwise addressed in HPI. Allergies: Coded Allergies: NO KNOWN ALLERGIES (Unverified , 11/19/24) Medications Current Medications Medications Dose Ordered Sig/Dona Route Start Time Stop Time Status Last Admin Dose Admin Heparin Sodium/ Dextrose 250 ml @ 9 mls/hr Q24H IV 12/29/24 17:00 12/29/24 18:08 9 MLS/HR Clopidogrel Bisulfate 75 mg DAILY PO 12/30/24 10:00 Aspirin 162 mg DAILY PO 12/30/24 10:00 Empaglifozin 10 mg DAILY PO 12/30/24 10:00 Lisinopril 2.5 mg DAILY PO 12/30/24 10:00 Losartan Potassium 100 mg DAILY PO 12/30/24 10:00 Future Hold Ondansetron HCl 4 mg Q4HP PRN IV 12/29/24 19:15 Acetaminophen 650 mg Q6HP PRN PO 12/29/24 19:15 Nitroglycerin 0.4 mg Q5MINP PRN SL 12/29/24 19:15 Morphine Sulfate 2 mg Q30M PRN IV 12/29/24 19:15 Exam Vital Signs Vital Signs Date Time Temp Pulse Resp B/P (MAP) Pulse Ox O2 Delivery O2 Flow Rate FiO2 12/29/24 22:00 94 20 132/92 (105) 95 12/29/24 20:00 98.1 98.1 12/29/24 19:20 Nasal Cannula* 2 28 Exam Gen: 69-year-old male in mild distress Skin: Warm, dry, normal color and texture, no rash. HEENT: Normocephalic atraumatic, mucous membranes moist and pink. Neck: Cervical and supraclavicular nodes normal without enlargement, trachea is midline, thyroid gland is normal without masses. Pulmonary: Clear to auscultation and percussion bilaterally. Cardiac: Regular rate and rhythm. No murmur Abdomen: Soft, nontender, nondistended, bowel sounds present all 4 quadrants, no guarding, no rigidity, no organomegaly. Extremities: No cyanosis, clubbing, no edema Neuro: Cranial nerves II through XII grossly intact, normal affect and speech, no focal motor deficits. Labs/Xrays ORDERING PHYSICIAN: KRZYSZTOF SHABAZZ MD PROCEDURE(s): CXR1 - CHEST XRAY 1 VIEW REASON: Chest Pain ORDER NUMBER(s): [id number], ACCESSION NUMBER(s): [id number] CHEST RADIOGRAPH Indication: Chest Pain Technique: Single frontal view of the chest was obtained Comparison: XY CHEST XRAY 1 VIEW on DOS: 12/12/24, XY CHEST PORTABLE on DOS: 12/10/24, XY CHEST XRAY 1 VIEW on DOS: 12/08/24 FINDINGS: Lines and Tubes: None Lungs: Decreased pulmonary vascular congestion when compared to on 05/2024. Pleura: No effusion. No pneumothorax. Cardiomediastinal contours: Stable when compared to 12/12/2024 Bones: No acute osseous abnormality. IMPRESSION: 1. Persistent cardiomegaly. 2. Decreased pulmonary vascular congestion when compared 12/12/2024. Labs Test 12/29/24 20:00 12/29/24 16:05 Range/Units Troponin I High Sensitivity 91271 *H </=54 ng/L White Blood Count 7.3 4.4-10.8 10^3/uL Red Blood Count 4.93 4.5-5.90 10^6/uL Hemoglobin 14.9 13.5-17.5 g/dL Hematocrit 45.2 41.0-53.0 % Mean Corpuscular Volume 91.7 80.0-100.0 fL Mean Corpuscular Hemoglobin 30.3 28.0-32.0 pg Mean Corpuscular Hemoglobin Concent 33.0 32.0-36.0 g/dL Red Cell Distribution Width 16.9 H 11.8-14.3 % Platelet Count 277 140-450 10^3/uL Mean Platelet Volume 7.6 6.9-10.8 fL Neutrophils (%) (Auto) 54.4 37.0-80.0 % Lymphocytes (%) (Auto) 34.4 10.0-50.0 % Monocytes (%) (Auto) 6.9 0.0-12.0 % Eosinophils (%) (Auto) 3.4 0.0-7.0 % Basophils (%) (Auto) 0.9 0.0-2.0 % Neutrophils # (Auto) 4.0 1.6-8.6 10 ^3/uL Lymphocytes # (Auto) 2.5 0.4-5.4 10 ^3/uL Monocytes # (Auto) 0.5 0-1.3 10 ^3/uL Eosinophils # (Auto) 0.3 0-0.8 10 ^3/uL Basophils # (Auto) 0.1 0-0.2 10 ^3/uL Nucleated Red Blood Cells 0.1 % Prothrombin Time 11.1 9.3-11.8 sec Prothrombin Time INR 1.05 0.9-1.15 Activated Partial Thromboplast Time 26.8 24.5-34.5 SEC Sodium Level 142 136-145 mmol/L Potassium Level 3.7 3.5-5.1 mmol/L Chloride Level 107 98-107 mmol/L Carbon Dioxide Level 24 20-31 mmol/L Anion Gap 11 5-15 Blood Urea Nitrogen 10 9-23 mg/dL Creatinine 0.83 0.700-1.30 mg/dL Glomerular Filtration Rate Calc 96 >90 mL/min BUN/Creatinine Ratio 12.0 10.0-20.0 Serum Glucose 124 H 74-106 mg/dL Calcium Level 9.8 8.7-10.4 mg/dL B-Type Natriuretic Peptide 1667.05 0-100 pg/mL SEPSIS Sepsis Screen Date sepsis recognized/suspect: Dec 29, 2024 Time Sepsis recognized/suspect: 1920 Recent Procedure: No On Antibiotic Therapy: No Respiratory Rate >20: No Heart Rate >90: No Temp<36 C (96.8 F) or >38.3 C: No SBP <90 or MAP <65 mmHG: No New Acute Mental Status Change: No Is the patient on CPAP, BIPAP,: No Physician Orders Platelet Monitoring (12/29/24 17:00) Heparin Per Standardized Proce (12/29/24 17:00) Discontinue All Im Injections (12/29/24 17:00) Heparin Drip/D5w 100units/Ml (12/29/24 17:00) Stat Ekg For Chest Pain (12/29/24 17:00) PTPTT (12/30/24 00:00) Heparin Per Pharmacy Protocol (12/29/24 18:30) * Cardiology Consult (12/29/24 19:03) Clopidogrel Bisulfate (Plavix) (12/30/24 10:00) Aspirin Tablet (12/30/24 10:00) Empagliflozin (Jardiance) (12/30/24 10:00) Lisinopril Tablet (Zestril Tablet) (12/30/24 10:00) Losartan Tablet (Cozaar Tablet) (12/30/24 10:00) Basic Metabolic Panel (12/30/24 04:00) Admit (12/29/24 19:03) Ondansetron Hcl (Zofran) (12/29/24 19:15) Complete Blood Count (12/30/24 04:00) Cardiac Diet-2gna,Lofat,Lochol (12/30/24 Breakfast) Condition: Fair (12/29/24 19:03) Acetaminophen Tablet (Tylenol Tablet) (12/29/24 19:15) Bedrest With Bathroom Privileg (12/29/24 19:03) Nitroglycerin Sublingual (Ntrostat Subli (12/29/24 19:15) Morphine Sulfate Injection (12/29/24 19:15) Notify Of Changes From Base (12/29/24 19:03) Manager Maintenance For 24 Hours (12/29/24 19:03) Emergency Dysrhythmia Protocol (12/29/24 19:03) Rhythm Strips Once Every Shift (12/29/24 19:03) Oxygen By Nasal Cannula (12/29/24 19:03) Npo After Midnight (12/29/24 19:03) Npo (Nothing By Mouth) Diet (12/30/24 Breakfast) Vital Signs Date Time Temp Pulse Resp B/P (MAP) Pulse Ox O2 Delivery O2 Flow Rate FiO2 12/29/24 22:00 94 20 132/92 (105) 95 12/29/24 20:00 98.1 88 19 124/78 (93) 95 98.1 12/29/24 19:20 Nasal Cannula* 2 28 12/29/24 18:27 86 12/29/24 18:03 113/77 12/29/24 17:33 90 12/29/24 17:21 Nasal Cannula* 2 28 12/29/24 17:13 68 22 97 Room Air 12/29/24 17:13 98.9 68 22 128/78 (95) 97 98.9 Laboratory Tests Test 12/29/24 16:05 White Blood Count 7.3 10^3/uL (4.4-10.8) Medications Medications Dose Ordered Sig/Dona Route Start Time Stop Time Status Last Admin Dose Admin Aspirin 325 mg ONCE ONCE PO 12/29/24 17:00 12/29/24 17:03 DC 12/29/24 18:01 325 MG Atorvastatin Calcium 80 mg ONCE ONCE PO 12/29/24 17:00 12/29/24 17:03 DC 12/29/24 18:01 80 MG Furosemide 40 mg ONCE ONCE IV 12/29/24 17:45 12/29/24 17:46 DC 12/29/24 18:03 40 MG Heparin Sodium (Porcine) 4,000 units ONCE ONCE IV 12/29/24 17:00 12/29/24 17:03 DC 12/29/24 18:06 4,000 UNITS Heparin Sodium/ Dextrose 250 ml @ 9 mls/hr Q24H IV 12/29/24 17:00 12/29/24 18:08 9 MLS/HR Assessment/Plan Assessment/Plan Assessment NSTEMI Hypertension Coronary artery disease Plan Admit the patient to telemetry to the hospitalist Continue heparin drip NPO after midnight Continue treatment per orders. Plan discussed with: Patient My Orders Orders - YRIS VALDOVINOSCNForrest Procedure Category Date Status Time * Cardiology Consult CONS 12/29/24 Transmitted 19:03 Clopidogrel Bisulfate PHA 12/30/24 In Process (Plavix) 10:00 Aspirin Tablet PHA 12/30/24 In Process 10:00 Empagliflozin PHA 12/30/24 In Process (Jardiance) 10:00 Lisinopril Tablet PHA 12/30/24 In Process (Zestril Tablet) 10:00 Losartan Tablet PHA 12/30/24 In Process (Cozaar Tablet) 10:00 Basic Metabolic Panel LAB 12/30/24 Verified 04:00 Admit ADMIT 12/29/24 Transmitted 19:03 Ondansetron Hcl PHA 12/29/24 In Process (Zofran) 19:15 Complete Blood Count LAB 12/30/24 Verified 04:00 Cardiac DIET 12/30/24 Transmitted Diet-2gna,Lofat,Lochol Breakfast Condition: Fair [facility] 12/29/24 In Process 19:[address] [facility] 12/29/24 In Process (Tylenol Tablet) 19:15 Bedrest With Bathroom [facility] 12/29/24 In Process Privileg 19:[address] [facility] 12/29/24 In Process Sublingual (Ntrostat 19:[address] [facility] 12/29/24 In Process Injection 19:15 Notify Of Changes [facility] 12/29/24 In Process From Base 19:03 Manager Maintenance For [facility] 12/29/24 In Process 24 Hours 19:03 Emergency Dysrhythmia [facility] 12/29/24 In Process Protocol 19:03 Rhythm Strips Once [facility] 12/29/24 In Process Every Shift 19:03 Oxygen By Nasal RT 12/29/24 Transmitted Cannula 19:03 Npo After Midnight [facility] 12/29/24 In Process 19:03 Npo (Nothing By DIET 12/30/24 Transmitted Mouth) Diet Breakfast Date of Service: Dec 29, 2024 Billing Provider: YRIS VALDOVINOS Common Visit Codes: [id number] INP/OBS CARE (HIGH) YRIS VALDOVINOS Dec 29, 2024 23:48
[2024-12-30] VITALS (12 sets, daily range): BP systolic 102–128; BP diastolic 58–96; PULSE 56–96; RESP 15–20; TEMP 97.9–98.4; O2SAT 95–100
[2024-12-30 00:50] LABS: Hematocrit 42.5 % (41.0-53.0); Hemoglobin 14.3 g/dL (13.5-17.5); Mean Corpuscular Hemoglobin 30.3 pg (28.0-32.0); Mean Corpuscular Volume 90.3 fL (80.0-100.0); Nucleated Red Blood Cells % 0.1 %
[2024-12-30 01:00] LABS: Chloride 107 mmol/L (98-107); Sodium 142 mmol/L (136-145)
[2024-12-30 01:01] LABS: Anion Gap 9 (5-15); Calcium 9.4 mg/dL (8.7-10.4); Carbon Dioxide 26 mmol/L (20-31)
[2024-12-30 01:04] LABS: Potassium 3.2 mmol/L (3.5-5.1)
[2024-12-30 01:06] LABS: BUN/Creatinine Ratio 16.2 (10.0-20.0); Blood Urea Nitrogen 11 mg/dL (9-23); Glucose 120 mg/dL (74-106)
[2024-12-30 01:08] LABS: INR 1.07 (0.9-1.15); Partial Thromboplastin Time 39.1 SEC (24.5-34.5); Prothrombin Time 11.3 sec (9.3-11.8)
[2024-12-30] MEDS ORDERED: ATOR40TA52 PO (02:49)
[2024-12-30] MEDS ORDERED: TEMA15CA PO (02:58)
[2024-12-30] MEDS ORDERED: ALBUAER3 IN (03:02)
[2024-12-30 09:28] LABS: INR 1.09 (0.9-1.15); Partial Thromboplastin Time 47.0 SEC (24.5-34.5); Prothrombin Time 11.5 sec (9.3-11.8)
--- NOTE | 2024-12-30 09:42 | CONS ---
Pharmacy Clinical Information: INCREASE HEPARIN DRIP RATE TO 1300 UNITS/HR PER APTT OF 47.0 NEXT APTT DRAW SCHEDULED FOR 1530 PER RX PROTOCOL SELMA OQUENDO CONFIRMED AND READ BACK Nica Francis PHARMACIST Dec 30, 2024 09:42
[2024-12-30] MEDS: HEPARIN DRIP/D5W 100UNITS/ML 250 ML IV SCH (09:45)
[2024-12-30] MEDS ORDERED: LOSARTAN POTASSIUM 50 MG TAB PO SCH (10:00)
--- NOTE | 2024-12-30 10:03 | DVHINCON2 ---
Date Seen: Dec 30, 2024 Referring Physician DHAVAL Leslie Reason for Consultation NSTEMI History of Present Illness This is a 69-year-old male patient who presents to the emergency room with chief complaint of shortness of breath and fatigue for one week. The patient was recently seen at this facility from 11/19/24-12/13/24 where he was diagnosed with cardiopulmonary arrest, cardiogenic and septic shock. On 12/10/2024 the patient underwent a coronary angiogram in which catheter based intervention was done to the proximal LAD and diagonal vessel. At that time, a stage procedure to RCA was recommended as outpatient. The patient states he tried to follow up with 's office in the outpatient clinic, but was having trouble getting an appointment. Given worsening shortness of breath and generalized fatigue, the patient decided to come to the emergency room. Initial twelve electrocardiogram reveals normal sinus rhythm with nonspecific ST segment changes to inferolateral leads, PVC's and left ventricular hypertrophy. Initial troponin level of [id number] with down trend and latest level of 91050wb/L. He denies any chest pain. Significant past medical history includes coronary artery disease s/p PTCA X 2 MARIE (on aspirin and Plavix), congestive heart failure, ischemic cardiomyopathy, tobacco use, and history of methamphetamine use. Past Medical History Past medical history reviewed. No other significant than mentioned above. Past Surgical History Spinal surgery PTCA with stenting to LAD and diagonal Family History: Patient reports no known family medical history. Family History Family history reviewed. Social History Patient has a 50 pack-year history, states he smokes approximately three cigarettes per day now Patient admits to previous methamphetamine use, last time he used was in November 2024 Denies any alcohol use Allergies: Coded Allergies: NO KNOWN ALLERGIES (Unverified , 11/19/24) Home Meds Active Scripts Lisinopril (Lisinopril) 2.5 Mg Tab, 1 TAB PO DAILY for 60 Days, #60 TAB 2 Refills Prov:AURELIO ZAMARRIPA FULL TIME STAFF INTERPRETER 12/13/24 Empagliflozin (Jardiance) 10 Mg Tab, 10 MG PO DAILY for 30 Days, #60 TAB 1 Refill Prov:SALAURELIO GALLO FULL TIME STAFF INTERPRETER 12/13/24 Aspirin (Aspir-81) 81 Mg Tab, 1 TAB PO DAILY for 60 Days, #60 TAB 1 Refill Prov:SALAURELIO GALLO FULL TIME STAFF INTERPRETER 12/13/24 Clopidogrel Bisulfate (Plavix) 75 Mg Tab, 1 TAB PO DAILY for 60 Days, #60 TAB 1 Refill Prov:AURELIO ZAMARRIPA FULL TIME STAFF INTERPRETER 12/13/24 Cephalexin (Keflex) 500 Mg Cap, 500 MG PO TID, #30 CAP Prov:GARY TONY N.P. 02/11/13 Tramadol Hcl (Tramadol Hcl) 50 Mg Tab, 50 MG PO Q6HP PRN, #30 TAB Prov:GARY TONY N.P. 02/11/13 Silver Sulfadiazine (Silver Sulfadiazine) 1 % Cre, 1 APPLIC TOP DAILY, #1 UNIT Prov:GARY TONY N.P. 02/11/13 Reported Medications Albuterol Sulfate (VENTOLIN MDI) 90 Mcg Ih, 90 MCG IN, INH 12/30/24 Temazepam (Temazepam) 15 Mg Cap, 15 MG PO, CAP 12/30/24 Atorvastatin Calcium (ATORVASTATIN CALCIUM) 40 Mg Tab, 1 TAB PO DAILY, #30 TAB 5 Refills 12/30/24 Melatonin (KP MELATONIN) 3 Mg Tab, 5 MG PO HS, TAB 12/07/24 No Reported Medication (NO REPORTED MEDICATION) Ea, 0 CO UNK, EA PATIENT HAS NO REPORTED MEDICATIONS 02/11/13 Home Meds Home medications reviewed. Current Medications Current Medications Medications (Trade) Dose Ordered Sig/Dona Route PRN Reason Start Time Stop Time Status Last Admin Heparin Sodium/ Dextrose 250 ml @ 9 mls/hr Q24H IV 12/29/24 17:00 12/30/24 09:38 DC 12/29/24 18:08 Clopidogrel Bisulfate (Plavix) 75 mg DAILY PO 12/30/24 10:00 Aspirin 162 mg DAILY PO 12/30/24 10:00 Empaglifozin (Jardiance) 10 mg DAILY PO 12/30/24 10:00 Lisinopril (Zestril Tablet) 2.5 mg DAILY PO 12/30/24 10:00 Losartan Potassium (Cozaar Tablet) 100 mg DAILY PO 12/30/24 10:00 Future Hold Ondansetron HCl (Zofran) 4 mg Q4HP PRN IV NAUSEA / VOMITING 12/29/24 19:15 Acetaminophen (Tylenol Tablet) 650 mg Q6HP PRN PO PAIN SCALE 1-3 OR TEMP>100.4 12/29/24 19:15 Nitroglycerin (Ntrostat Sublingual) 0.4 mg Q5MINP PRN SL FOR CHEST PAIN 12/29/24 19:15 Morphine Sulfate 2 mg Q30M PRN IV FOR CHEST PAIN 12/29/24 19:15 Heparin Sodium/ Dextrose 250 ml @ 13 mls/hr [id number] IV 12/30/24 09:45 Review of Systems Constitutional: Generalized fatigue Ears, Nose, & Throat: No symptom reported Eyes: No symptom reported Neurological: No symptoms reported Pulmonary/Respiratory: Shortness of breath Cardiovascular: No symptom reported Gastrointestinal: No symptom reported Genitourinary: No symptom reported Musculoskeletal: No symptom reported Skin: No symptom reported Psychiatric: No symptom reported Endocrine: No symptom reported Hematologic/Lymphatic: No symptom reported Vital Signs Vital Signs Date Time Temp Pulse Resp B/P (MAP) Pulse Ox O2 Delivery O2 Flow Rate FiO2 12/30/24 05:00 98.3 85 18 122/96 (105) 100 98.3 12/30/24 02:23 Nasal Cannula* 2 28 Physical Exam General Appearance: Cooperative. Well-developed. Well-nourished. No acute distress. . Pulmonary/Respiratory: Clear, bilateral breaths sounds. Cardiovascular/Chest: Regular rate and rhythm. Peripheral Pulses: 2+ Radial (R). 2+ Radial (L). 2+ Pedal (R). 2+ Pedal (L) Abdominal Exam: Normal bowel sounds. Ankle Exam: Negative ankle edema Lower extremities: Negative lower extremity edema Neuro/Mental Status: A/OX4, coherent. Thoughts/Psych: Normal thought pattern. Appropriate mood and affect. Good judgment and insight. Appearance: No acute distress. Skin Exam: Normal inspection. Normal color. Warm and dry. Labs/Diagnostic Data Labs Test 12/30/24 08:35 12/30/24 00:37 12/29/24 20:00 12/29/24 16:05 Range/Units Prothrombin Time 11.5 9.3-11.8 sec Prothrombin Time INR 1.09 0.9-1.15 Activated Partial Thromboplast Time 47.0 H 24.5-34.5 SEC White Blood Count 7.0 4.4-10.8 10^3/uL Red Blood Count 4.70 4.5-5.90 10^6/uL Hemoglobin 14.3 13.5-17.5 g/dL Hematocrit 42.5 41.0-53.0 % Mean Corpuscular Volume 90.3 80.0-100.0 fL Mean Corpuscular Hemoglobin 30.3 28.0-32.0 pg Mean Corpuscular Hemoglobin Concent 33.6 32.0-36.0 g/dL Red Cell Distribution Width 16.3 H 11.8-14.3 % Platelet Count 248 140-450 10^3/uL Mean Platelet Volume 7.5 6.9-10.8 fL Neutrophils (%) (Auto) 45.2 37.0-80.0 % Lymphocytes (%) (Auto) 40.7 10.0-50.0 % Monocytes (%) (Auto) 7.3 0.0-12.0 % Eosinophils (%) (Auto) 5.2 0.0-7.0 % Basophils (%) (Auto) 1.6 0.0-2.0 % Neutrophils # (Auto) 3.1 1.6-8.6 10 ^3/uL Lymphocytes # (Auto) 2.8 0.4-5.4 10 ^3/uL Monocytes # (Auto) 0.5 0-1.3 10 ^3/uL Eosinophils # (Auto) 0.4 0-0.8 10 ^3/uL Basophils # (Auto) 0.1 0-0.2 10 ^3/uL Nucleated Red Blood Cells 0.1 % Sodium Level 142 136-145 mmol/L Potassium Level 3.2 L 3.5-5.1 mmol/L Chloride Level 107 98-107 mmol/L Carbon Dioxide Level 26 20-31 mmol/L Anion Gap 9 5-15 Blood Urea Nitrogen 11 9-23 mg/dL Creatinine 0.68 L 0.700-1.30 mg/dL Glomerular Filtration Rate Calc 102 >90 mL/min BUN/Creatinine Ratio 16.2 10.0-20.0 Serum Glucose 120 H 74-106 mg/dL Calcium Level 9.4 8.7-10.4 mg/dL Troponin I High Sensitivity 13369 *H </=54 ng/L B-Type Natriuretic Peptide 1667.05 0-100 pg/mL Assessment NSTEMI, rule out InStent thrombosis/restenosis Coronary artery disease s/p PTCA with stenting to LAD and diagonal (on aspirin and Plavix) Acute on chronic HFrEF, NYHA class III Ischemic cardiomyopathy Hypokalemia Tobacco use History of methamphetamine use Medical noncompliance Plan/Recommendation We will continue with the following plan/recommendations () * Previous transthoracic echocardiogram from 12/11/2024 reveals an EF of 15% * Initiate guideline directed medical therapy for CHF as tolerated * Strict intake and output, daily weights, maintain fluid restriction * Chest pain protocol * HEART score: 9 points * ONEYDA score: 6 points * Continue heparin drip per ACS protocol * Continue dual antiplatelet therapy and lipid-lowering agent * Close cardiac surveillance * Coronary angiogram * Risk factor modifications, counseled * Adherence to dual antiplatelet therapy and CHF medications Case discussed with . Patient may benefit from coronary angiogram with left heart catheterization. The procedure was discussed with the patient in full detail including risks and benefits. Risks include but are not limited to bleeding, contrast-induced nephropathy, coronary dissection, stroke, and even . The patient understands and is agreeable to undergo the procedure. We will schedule the patient at soonest availability. Thank you for allowing us to care for this patient. Please call with any questions or concerns. Critical care time spent: 44 minutes This medical document was created using an electronic medical record system with voice recognition software and computerized dictation system. Although this document has been carefully reviewed, there might still be some phonetic and typographical errors. Occasional wrong-word or ``sound-alike substitutions may have occurred due to the inherent limitations of voice recognition software. These areas are purely typographical due to imperfections of the software programs and do not reflect any compromise in the patient's medical care. Please read the chart carefully and recognize, using context, where these substitutions have occurred. Plan discussed with: Patient NYHA Physical activity limitations: Class3(Marked) ordinary Date of Service: Dec 30, 2024 Billing Provider: HEMA SCHWARZ Cardiology Common Codes: [id number] INP/OBS CARE (High) Cardiology Consultation Codes: [id number] CONSULT <45MIN HEMA SCHWARZ Dec 30, 2024 10:03
[2024-12-30] MEDS: LISINOPRIL 5 MG TAB PO SCH (10:07)
[2024-12-30] MEDS: EMPAGLIFLOZIN 10 MG TAB PO SCH (10:07)
[2024-12-30] MEDS: CLOPIDOGREL BISULFATE 75 MG TAB PO SCH (10:08)
[2024-12-30 10:44] LABS: Magnesium 1.7 mg/dL (1.6-2.6); Triglycerides 85.0 mg/dL (< 150)
[2024-12-30 10:45] LABS: Cholesterol 98.0 mg/dL (< 200)
[2024-12-30 10:49] LABS: HDL Cholesterol 39.0 mg/dL (40-59)
[2024-12-30] MEDS: IODIXANOL 320MG/ML 100ML BTL IV ONE (13:18)
[2024-12-30] MEDS: ANGIOMAX 250 MG VIAL IV ONE (15:26)
[2024-12-30] MEDS: SODIUM CHL 0.9% 50 ML ONE (15:26)
[2024-12-30] MEDS: fentaNYL CITRATE 100 MCG/2 ML VL ONE (15:26)
[2024-12-30] MEDS: LIDOCAINE 2%HCL (LOCAL ANESTH.) INJ 20ML MDV ONE (15:26)
[2024-12-30] MEDS: MIDAZOLAM HCL 2MG/2ML 2ml VIAL (1mg/ml) ONE (15:26)
[2024-12-30] MEDS: VERAPAMIL 2.5MG/ML INJ 2ML VIAL IV ONE (15:27)
[2024-12-30] MEDS: HEPARIN SODIUM (PORCINE) 5000 UNITS/ML 1ML VIAL ONE (15:27)
--- NOTE | 2024-12-30 17:14 | DVHPN2 ---
Progress Note Date Seen: Dec 30, 2024 Medical Necessity Reason Pt with a Central, PICC or Fol: No Subjective Patient reports: Feels better Objective vital signs Vital Sign Date Time Temp Pulse Resp B/P (MAP) Pulse Ox O2 Delivery O2 Flow Rate FiO2 12/30/24 16:55 76 18 108/58 (75) 95 12/30/24 13:00 98.4 98.4 12/30/24 08:00 Nasal Cannula* 3 32 Total Intake and Output 12/29/24 12/29/24 12/30/24 15:00 23:00 07:00 Intake Total 36 ml 27 ml Output Total 400 ml Balance 36 ml -373 ml medications Current Medications Medications Dose Ordered Sig/Dona Route Start Time Stop Time Status Last Admin Dose Admin Clopidogrel Bisulfate 75 mg DAILY PO 12/30/24 10:00 12/30/24 10:08 75 MG Empaglifozin 10 mg DAILY PO 12/30/24 10:00 12/30/24 10:07 10 MG Lisinopril 2.5 mg DAILY PO 12/30/24 10:00 12/30/24 10:07 2.5 MG Ondansetron HCl 4 mg Q4HP PRN IV 12/29/24 19:15 Acetaminophen 650 mg Q6HP PRN PO 12/29/24 19:15 Nitroglycerin 0.4 mg Q5MINP PRN SL 12/29/24 19:15 Morphine Sulfate 2 mg Q30M PRN IV 12/29/24 19:15 Heparin Sodium/ Dextrose 250 ml @ 13 mls/hr [id number] IV 12/30/24 09:45 Spironolactone 25 mg DAILY PO 12/31/24 10:00 Metoprolol Succinate 25 mg DAILY PO 12/31/24 10:00 Aspirin 81 mg DAILY PO 12/31/24 10:00 UNV Examination: GENERAL:Abnormal, HEENT:Abnormal, LUNGS:Abnormal, CVS:Abnormal, ABDOMEN:Abnormal laboratory and microbiology Laboratory Tests 12/30/24 00:37 Test 12/30/24 00:37 Range/Units Serum Glucose 120 H 74-106 mg/dL Problem List/Assessment/Plan Problem List/Assessment/Plan nstemi non complaince severe ICM chf nyha class III s/p complex pci patent LAD stent placed last week cont dapt cont statin fu dr santo nolasco GDMT for HF limited echo to assess LV ef and see if apex has improved Plan discussed with: Patient My Orders My Orders Orders - BETO CHIN MD Procedure Category Date Status Time Cl Left Heart Cath CL 12/30/24 Taken 14:13 Cardiac DIET 12/30/24 Transmitted Diet-2gna,Lofat,Lochol Dinner Post Cath Vital Signs MAYRA 12/30/24 In Process Q 15min 16:09 Post Cath Activity MAYRA 12/30/24 In Process Protocol 16:09 Communication Order ORDERS 12/30/24 Transmitted 16:09 Date of Service: Dec 30, 2024 Billing Provider: BETO CHIN MD Common Visit Codes: NOT BILLABLE BETO CHIN MD Dec 30, 2024 17:13
--- NOTE | 2024-12-30 17:16 | DVHOP2 ---
Operative Report Operative Report CARDIAC CONSTRUCTION PIT WORKER PROCEDURE REPORT [place], [place] Date of Service: 12/30/24 Director Of Annual Giving: Beto Chin MD PROCEDURES PERFORMED: Coronary angiogram, left heart catheterization, conscious sedation administration and supervision, less than 15 minutes; fluoroscopy use and interpretation. PREOPERATIVE DIAGNOSES: nstemi POSTOP DIAGNOSIS: nstemi DESCRIPTION OF PROCEDURE: The patient or appropriate family signed informed consent understanding the risks, benefits and alternatives of the procedure, they wished to proceed. The patient was brought to the cardiac slabbing machine operator in n.p.o. state. The patient was prepped in a sterile fashion. Sedation was used per cardiac cath protocol. I administered 2 mL of 2% lidocaine to the right wrist. With an antegrade front wall puncture. I cannulated the right radial artery and placed a 6-[place] Glidesheath slender. Next, an intra-arterial spasmolytic was administered. Next, a - 5French [place] catheter a were used for coronary angiogram and LVEDP measurement and pressure pullback. At the completion of procedure, all guides and wires were removed, and there were no immediate complications. FINDINGS: RCA: Moderate vessel off the right sinus of Valsalva, there is mid vessel CONSTRUCTION CONTRACTOR which is unchanged. L to R collaterals LEFT MAIN: very short LM size left main, it bifurcates into LAD and circumflex. CIRCUMFLEX: Moderate caliber vessel coming off the left main with knonw heavily calcific 70% stenosis. LAD: LAD is a moderate caliber vessel coming of the left main. prox LAd has patent stent with stent into diag. normal flow into mid to distal LAD with mild to moderate diffuse non obstructive plaque. LVEDP of 15 mmhg CONCLUSIONS: 1. patent LAD /Diag stents, with corey 3 flow into apex 2. normal LVEDP PLAN: Aggressive risk factor modification and medical management for the patient. DAPT x 1 year uninterrupted cont GDMT BETO CHIN MD Dec 30, 2024 17:16
--- NOTE | 2024-12-30 17:58 | DVHPNRES ---
Progress Note Date Seen: Dec 30, 2024 Resident Creating Document: FREDO JONES RESIDENT Medical Necessity Reason Pt with a Central, PICC or Fol: No Subjective Review of Systems 69-year-old male presents for evaluation of shortness for breath. 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 Today he returns with worsening shortness for breath, dizziness and fatigue. Denies chest pain. troponins were elevated. Patient has a history of [place] few weeks back. Repeat catheterization was done, coronary vessels were patent. General: patient denies fever, fatigue, weaknes, sweating, any recent changes in appetite and weight HEENT: No headaches, visiual changes, hearing loss, tinnitus, nasal congestion and discharge, and sore throat. Cardiovascular: Denies chest pain, palpitations, dyspnea on exertion, orthopnea, or claudication. Respiratory: No cough Gastrointestinal: Denies nausea, vomiting, dysphagia, odynophagia, heartburn, abdominal pain, flatulence, bloating, diarrhea, constipation, change in stool, or blood in stool. Genitourinary: No dysuria, hematuria, discharge, frequency, urgency, nocturia, incontinence, and urinary retention. Endocrine: No heat or cold intolerance, polydipsia, polyuria, and polyphagia. Neurological: No dizziness, extremity weakness and numbness, tremors, gait disturbance, seizures, and memory impairment. Psychiatric: Denies depression, anxiety,or insomnia. Musculoskeletal: Denies neck pain, stiffness and swelling, back pain, muscle weakness, joint pain, stiffness, swelling, or limited range of motion. Skin: No rashes, itching, skin lesion, changes in hair, nail, skin texture and breast. Hematologic/Lymphatic: Denies easy bruising, bleeding tendencies, or lymph node enlargement. Objective vital signs Vital Sign Date Time Temp Pulse Resp B/P (MAP) Pulse Ox O2 Delivery O2 Flow Rate FiO2 12/30/24 16:55 76 18 108/58 (75) 95 12/30/24 13:00 98.4 98.4 12/30/24 08:00 Nasal Cannula* 3 32 Total Intake and Output 12/29/24 12/29/24 12/30/24 15:00 23:00 07:00 Intake Total 36 ml 27 ml Output Total 400 ml Balance 36 ml -373 ml medications Current Medications Medications Dose Ordered Sig/Dona Route Start Time Stop Time Status Last Admin Dose Admin Clopidogrel Bisulfate 75 mg DAILY PO 12/30/24 10:00 12/30/24 10:08 75 MG Empaglifozin 10 mg DAILY PO 12/30/24 10:00 12/30/24 10:07 10 MG Lisinopril 2.5 mg DAILY PO 12/30/24 10:00 12/30/24 10:07 2.5 MG Ondansetron HCl 4 mg Q4HP PRN IV 12/29/24 19:15 Acetaminophen 650 mg Q6HP PRN PO 12/29/24 19:15 Nitroglycerin 0.4 mg Q5MINP PRN SL 12/29/24 19:15 Morphine Sulfate 2 mg Q30M PRN IV 12/29/24 19:15 Spironolactone 25 mg DAILY PO 12/31/24 10:00 Metoprolol Succinate 25 mg DAILY PO 12/31/24 10:00 Aspirin 81 mg DAILY PO 12/31/24 10:00 Atorvastatin Calcium 40 mg HS PO 12/30/24 22:00 Examination General Appearance: Alert, Oriented X3, Cooperative, No acute distress HEENT: Atraumatic, PERRLA, EOMI, Mucous membrane moist/pink Respiratory: Clear to auscultation, Normal air movement, wheezing present Cardiovascular: Regular rate, Normal S1, Normal S2, No murmurs, no chest wall tenderness Abdominal: Normal bowel sounds, Soft, No tenderness, No hepatospenomegaly, No masses Extremities: No clubbing, No cyanosis, No edema, Normal pulses, No tenderness/swelling Skin: No rashes, No breakdown, No significant lesion Neuro: Normal gait, Normal speech, Strength at 5/5 X4 ext, Normal tone, Sensation intact, Cranial nerves 3-12 NL, Reflexes 2+ Psych/Mental Status: Mental status NL, Mood NL laboratory and microbiology Laboratory Tests 12/30/24 00:37 Test 12/30/24 00:37 Range/Units Serum Glucose 120 H 74-106 mg/dL Problem List/Assessment/Plan Problem List/Assessment/Plan Assessment and plan NSTEMI with history of 2 PTCA 3 weeks ago Cardiac catheterization done, coronary vessels patent HFrEF 15% On GDM T Holding Entresto, we will resume later Dyslipidemia continue atorvastatin Essential hypertension BP currently soft Methamphetamine abuse Per patient not used since last admission Nicotine dependence Counseled on smoking cessation Patient's status and plan discussed with the patient. Case discussed with Dr. Belle Plan discussed with: Patient My Orders My Orders Orders - FREDO JONES Procedure Category Date Status Time Complete Blood Count LAB 12/30/24 Logged 17:48 Comprehensive LAB 12/30/24 Logged Metabolic Panel 17:48 Date of Service: Dec 30, 2024 Billing Provider: CECI BELLE MD Common Visit Codes: [id number] INP/OBS CARE(HIGH) Secondary Visit Codes: [id number] CARE PLAN 30 MINUTES FREDO JONES Dec 30, 2024 17:58 CECI BELLE MD Jan 09, 2025 21:27
[2024-12-30] MEDS: POTASSIUM EFFERVESENT TAB 25 MEQ PO ONE (18:00)
[2024-12-30 19:15] LABS: Hematocrit 51.4 % (41.0-53.0); Hemoglobin 17.2 g/dL (13.5-17.5); Mean Corpuscular Hemoglobin 30.3 pg (28.0-32.0); Mean Corpuscular Volume 90.5 fL (80.0-100.0); Nucleated Red Blood Cells % 0.3 %
[2024-12-30 19:33] LABS: Alanine Aminotransferase 37 U/L (7-40); Albumin 4.4 g/dL (3.2-4.8); Alkaline Phosphatase 102 U/L (46-116); Anion Gap 9 (5-15); BUN/Creatinine Ratio 8.1 (10.0-20.0); Bilirubin, Total 0.9 mg/dL (0.2-1.0); Calcium 9.9 mg/dL (8.7-10.4); Carbon Dioxide 25 mmol/L (20-31); Chloride 105 mmol/L (98-107); Potassium 4.6 mmol/L (3.5-5.1); Sodium 139 mmol/L (136-145); Total Protein 7.7 g/dL (5.7-8.2)
[2024-12-30 19:34] LABS: Blood Urea Nitrogen 6 mg/dL (9-23); Glucose 128 mg/dL (74-106)
[2024-12-30] MEDS: ATORVASTATIN 20 MG TAB PO SCH (21:46)
[2024-12-31] VITALS (17 sets, daily range): BP systolic 88–110; BP diastolic 58–77; PULSE 52–91; RESP 17–20; TEMP 97.3–98.4; O2SAT 94–100
[2024-12-31] MEDS: ALBUTEROL SULF 2.5 MG/0.5ML(0.5%) NEB SOLN NEB ONE (03:49)
--- NOTE | 2024-12-31 09:30 | DVH ---
EXAM: XY CHEST PORTABLE CLINICAL HISTORY: sob TECHNIQUE: Single AP view of the chest WID: COMPARISON: XY CHEST XRAY 1 VIEW on DOS: 12/29/24, CTA chest from 11/24/2024 FINDINGS: Lines and tubes: None Chest: Mild cardiomegaly without pulmonary vascular congestion. Calcified plaque projects over the aortic ar ch. No pleural effusion or pneumothorax. Mild superimposed opacities in the right upper lung. Mild inter stitial opacities are seen in the lungs The osseous structures are grossly intact. IMPRESSION: 1. Mild cardiomegaly without CHF. 2. Mild interstitial opacities in the lungs significantly changed likely reflecting mild fibrotic celena nge. 3. A few small mixed opacities in the right upper lung which could reflect mild superimposed pneumoni a.
[2024-12-31] MEDS: METOPROLOL SUCCINATE XL 50 MG TAB PO SCH (09:42)
[2024-12-31] MEDS: SPIRONOLACTONE 25 MG TAB PO SCH (09:43)
[2024-12-31] MEDS ORDERED: FUROSEMIDE 20 MG/2 ML VIAL IV SCH (10:00)
--- NOTE | 2024-12-31 10:06 | DVHPN2 ---
Consult Progress Note Date Seen: Dec 31, 2024 Subjective Review of Systems: CVS:Normal, RESPIRATORY:Normal, NEURO:Normal Other Systems: Denies any cardiac symptoms Objective vital signs Vital Sign Date Time Temp Pulse Resp B/P (MAP) Pulse Ox O2 Delivery O2 Flow Rate FiO2 12/31/24 09:44 110/77 12/31/24 09:42 85 12/31/24 05:00 98.4 17 99 98.4 12/31/24 03:49 Nasal Cannula* 4 36 Total Intake and Output 12/30/24 12/30/24 12/31/24 15:00 23:00 07:00 Intake Total 240 ml 500 ml Output Total 400 ml Balance -160 ml 500 ml medications Current Medications Medications Dose Ordered Sig/Dona Route Start Time Stop Time Status Last Admin Dose Admin Clopidogrel Bisulfate 75 mg DAILY PO 12/30/24 10:00 12/31/24 09:42 75 MG Empaglifozin 10 mg DAILY PO 12/30/24 10:00 12/31/24 09:43 10 MG Lisinopril 2.5 mg DAILY PO 12/30/24 10:00 12/31/24 09:44 2.5 MG Ondansetron HCl 4 mg Q4HP PRN IV 12/29/24 19:15 Acetaminophen 650 mg Q6HP PRN PO 12/29/24 19:15 Nitroglycerin 0.4 mg Q5MINP PRN SL 12/29/24 19:15 Morphine Sulfate 2 mg Q30M PRN IV 12/29/24 19:15 Spironolactone 25 mg DAILY PO 12/31/24 10:00 12/31/24 09:43 25 MG Metoprolol Succinate 25 mg DAILY PO 12/31/24 10:00 12/31/24 09:42 25 MG Aspirin 81 mg DAILY PO 12/31/24 10:00 12/31/24 09:43 81 MG Atorvastatin Calcium 40 mg HS PO 12/30/24 22:00 12/30/24 21:46 40 MG Ipratropium [place] 0.5 mg Q6HWA NEB 12/31/24 08:45 Albuterol 2.5 mg Q6HWA NEB 12/31/24 08:45 Examination: LUNGS:Normal, CVS:Normal, NEURO:Normal laboratory and microbiology Laboratory Tests 12/30/24 18:51 Test 12/30/24 18:51 Range/Units Serum Glucose 128 H 74-106 mg/dL Problem List/Assessment/Plan Problem List/Assessment/Plan NSTEMI, in-stent thrombosis/restenosis ruled out Coronary artery disease s/p PTCA with stenting to LAD and diagonal (on aspirin and Plavix) Acute on chronic HFrEF, NYHA class III Ischemic cardiomyopathy Hypokalemia Tobacco use History of methamphetamine use Medical noncompliance Plan/Recommendation (Dr. Beatty) * Recent transthoracic echocardiogram from 12/11/2024 revealed an EF of 15% * Continue guideline directed medical therapy for CHF as tolerated * Strict intake and output, daily weights, maintain fluid restriction * Dual-antiplatelet therapy and lipid-lowering agent * Initiate broad spectrum ABX ?PNA, per primary care team * (consider daily routine blood work) * Initiate DVT/VTE prophylaxis * Risk factor modifications, counseled * Adherence to dual antiplatelet therapy and CHF medications Case discussed with Dr. Beatty. Scheduled for stage procedure of the RCA on 01/01/2025. Patient agreeable for interventional procedure, understands risk for complications including SUSANNAH, CVA, coronary dissection and even . Thank you for allowing us to care for this patient. Please call with any questions or concerns. This medical document was created using an electronic medical record system with voice recognition software and computerized dictation system. Although this document has been carefully reviewed, there might still be some phonetic and typographical errors. Occasional wrong-word or ``sound-alike substitutions may have occurred due to the inherent limitations of voice recognition software. These areas are purely typographical due to imperfections of the software programs and do not reflect any compromise in the patient's medical care. Please read the chart carefully and recognize, using context, where these substitutions have occurred. Plan discussed with: Patient, Other Date of Service: Dec 31, 2024 Billing Provider: LORETTA FRIAS Cardiology Common Codes: [id number] [facility] LORETTA FRIAS Dec 31, 2024 10:06
[2024-12-31] MEDS: ENOXAPARIN SOD 30 MG/0.3 ML SYRINGE SC ONE (10:15)
[2024-12-31 11:35] LABS: Chloride 103 mmol/L (98-107); Potassium 4.1 mmol/L (3.5-5.1); Sodium 139 mmol/L (136-145)
[2024-12-31 11:36] LABS: Anion Gap 8 (5-15); Calcium 9.6 mg/dL (8.7-10.4); Carbon Dioxide 28 mmol/L (20-31)
[2024-12-31 11:41] LABS: BUN/Creatinine Ratio 13.0 (10.0-20.0); Blood Urea Nitrogen 9 mg/dL (9-23); Glucose 103 mg/dL (74-106)
[2024-12-31] MEDS: IPRATROPIUM BROM 0.5 MG/2.5ML INH SOL NEB SCH (11:44)
[2024-12-31] MEDS: ALBUTEROL SULF 2.5 MG/0.5ML(0.5%) NEB SOLN NEB SCH (11:44)
--- NOTE | 2024-12-31 17:22 | DVHPNRES ---
Progress Note Date Seen: Dec 31, 2024 Resident Creating Document: FREDO JONES RESIDENT Medical Necessity Reason Pt with a Central, PICC or Fol: No Subjective Review of Systems 69-year-old male presents for evaluation of shortness for breath. 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 Today he returns with worsening shortness for breath, dizziness and fatigue. Denies chest pain. troponins were elevated. Patient has a history of [place] few weeks back. Repeat catheterization was done, coronary vessels were patent. Patient seen at bedside. No new complaints. Patient is scheduled for a right heart coronary catheterization tomorrow. General: patient denies fever, fatigue, weaknes, sweating, any recent changes in appetite and weight HEENT: No headaches, visiual changes, hearing loss, tinnitus, nasal congestion and discharge, and sore throat. Cardiovascular: Denies chest pain, palpitations, dyspnea on exertion, orthopnea, or claudication. Respiratory: No cough Gastrointestinal: Denies nausea, vomiting, dysphagia, odynophagia, heartburn, abdominal pain, flatulence, bloating, diarrhea, constipation, change in stool, or blood in stool. Genitourinary: No dysuria, hematuria, discharge, frequency, urgency, nocturia, incontinence, and urinary retention. Endocrine: No heat or cold intolerance, polydipsia, polyuria, and polyphagia. Neurological: No dizziness, extremity weakness and numbness, tremors, gait disturbance, seizures, and memory impairment. Psychiatric: Denies depression, anxiety,or insomnia. Musculoskeletal: Denies neck pain, stiffness and swelling, back pain, muscle weakness, joint pain, stiffness, swelling, or limited range of motion. Skin: No rashes, itching, skin lesion, changes in hair, nail, skin texture and breast. Hematologic/Lymphatic: Denies easy bruising, bleeding tendencies, or lymph node enlargement. Objective vital signs Vital Sign Date Time Temp Pulse Resp B/P (MAP) Pulse Ox O2 Delivery O2 Flow Rate FiO2 12/31/24 17:03 99/70 (80) 12/31/24 16:49 97.5 52 18 99 97.5 12/31/24 16:22 2.0 28 12/31/24 11:44 Nasal Cannula* Total Intake and Output 12/30/24 12/30/24 12/31/24 15:00 23:00 07:00 Intake Total 240 ml 500 ml Output Total 400 ml Balance -160 ml 500 ml medications Current Medications Medications Dose Ordered Sig/Dona Route Start Time Stop Time Status Last Admin Dose Admin Clopidogrel Bisulfate 75 mg DAILY PO 12/30/24 10:00 12/31/24 09:42 75 MG Empaglifozin 10 mg DAILY PO 12/30/24 10:00 12/31/24 09:43 10 MG Lisinopril 2.5 mg DAILY PO 12/30/24 10:00 12/31/24 09:44 2.5 MG Ondansetron HCl 4 mg Q4HP PRN IV 12/29/24 19:15 Acetaminophen 650 mg Q6HP PRN PO 12/29/24 19:15 Nitroglycerin 0.4 mg Q5MINP PRN SL 12/29/24 19:15 Morphine Sulfate 2 mg Q30M PRN IV 12/29/24 19:15 Spironolactone 25 mg DAILY PO 12/31/24 10:00 12/31/24 09:43 25 MG Metoprolol Succinate 25 mg DAILY PO 12/31/24 10:00 12/31/24 09:42 25 MG Aspirin 81 mg DAILY PO 12/31/24 10:00 12/31/24 09:43 81 MG Atorvastatin Calcium 40 mg HS PO 12/30/24 22:00 12/30/24 21:46 40 MG Ipratropium [place] 0.5 mg Q6HWA [facility] 12/31/24 08:45 12/31/24 11:50 0.5 MG Albuterol 2.5 mg Q6HWA [facility] 12/31/24 08:45 12/31/24 11:50 2.5 MG Furosemide 20 mg DAILY IV 12/31/24 10:00 Enoxaparin Sodium 30 mg DAILY SC 01/01/25 10:00 Examination General Appearance: Alert, Oriented X3, Cooperative, No acute distress HEENT: Atraumatic, PERRLA, EOMI, Mucous membrane moist/pink Respiratory: Clear to auscultation, Normal air movement, wheezing present Cardiovascular: Regular rate, Normal S1, Normal S2, No murmurs, no chest wall tenderness Abdominal: Normal bowel sounds, Soft, No tenderness, No hepatospenomegaly, No masses Extremities: No clubbing, No cyanosis, No edema, Normal pulses, No tenderness/swelling Skin: No rashes, No breakdown, No significant lesion Neuro: Normal gait, Normal speech, Strength at 5/5 X4 ext, Normal tone, Sensation intact, Cranial nerves 3-12 NL, Reflexes 2+ Psych/Mental Status: Mental status NL, Mood NL laboratory and microbiology Laboratory Tests 12/31/24 10:53 12/30/24 18:51 Test 12/31/24 10:53 Range/Units Serum Glucose 103 74-106 mg/dL Problem List/Assessment/Plan Problem List/Assessment/Plan Assessment and plan NSTEMI with history of 2 PTCA 3 weeks ago Cardiac catheterization done, coronary vessels patent HFrEF 15% On GDM T Holding Entresto, we will resume later Dyslipidemia continue atorvastatin Essential hypertension BP currently soft Methamphetamine abuse Per patient not used since last admission Nicotine dependence Counseled on smoking cessation Patient's status and plan discussed with the patient. Case discussed with Dr. Belle Plan discussed with: Patient Date of Service: Dec 31, 2024 Billing Provider: CECI BELLE MD Common Visit Codes: [id number] INP/OBS CARE(HIGH) FREDO JONES RESIDENT Dec 31, 2024 17:22 CECI BELLE MD Jan 09, 2025 21:27
[2025-01-01] VITALS (19 sets, daily range): BP systolic 90–122; BP diastolic 58–94; PULSE 50–102; RESP 16–20; TEMP 97.5–98.1; O2SAT 93–100
[2025-01-01 08:45] LABS: Hematocrit 46.0 % (41.0-53.0); Hemoglobin 15.3 g/dL (13.5-17.5); Mean Corpuscular Hemoglobin 30.5 pg (28.0-32.0); Mean Corpuscular Volume 91.7 fL (80.0-100.0); Nucleated Red Blood Cells % 0.2 %
[2025-01-01 08:56] LABS: INR 1.03 (0.9-1.15); Partial Thromboplastin Time 28.5 SEC (24.5-34.5); Prothrombin Time 10.9 sec (9.3-11.8)
[2025-01-01] MEDS: ENOXAPARIN SOD 30 MG/0.3 ML SYRINGE SC SCH (09:50)
[2025-01-01 11:14] LABS: Alanine Aminotransferase 35 U/L (7-40); Alkaline Phosphatase 92 U/L (46-116); Anion Gap 15 (5-15); BUN/Creatinine Ratio 12.5 (10.0-20.0); Blood Urea Nitrogen 10 mg/dL (9-23); Calcium 9.9 mg/dL (8.7-10.4); Chloride 106 mmol/L (98-107); Glucose 85 mg/dL (74-106); Potassium 4.1 mmol/L (3.5-5.1); Sodium 141 mmol/L (136-145); Total Protein 7.5 g/dL (5.7-8.2)
[2025-01-01 11:15] LABS: Albumin 4.4 g/dL (3.2-4.8)
[2025-01-01] MEDS: AZITHROMYCIN 500MG/ 250ML 250 ML IV SCH (11:31)
[2025-01-01 11:32] LABS: Carbon Dioxide 20 mmol/L (20-31)
--- NOTE | 2025-01-01 11:52 | DVHPNRES ---
Progress Note Date Seen: Jan 01, 2025 Resident Creating Document: CECI BELLE MD Medical Necessity Reason Pt with a Central, PICC or Fol: No Subjective Review of Systems Patient seen at bedside. No new complaints. Patient is scheduled for a right heart coronary catheterization today. 69-year-old male presents for evaluation of shortness for breath. 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 Today he returns with worsening shortness for breath, dizziness and fatigue. Denies chest pain. troponins were elevated. Patient has a history of [place] few weeks back. Repeat catheterization was done, coronary vessels were patent. General: patient denies fever, fatigue, weaknes, sweating, any recent changes in appetite and weight HEENT: No headaches, visiual changes, hearing loss, tinnitus, nasal congestion and discharge, and sore throat. Cardiovascular: Denies chest pain, palpitations, dyspnea on exertion, orthopnea, or claudication. Respiratory: No cough Gastrointestinal: Denies nausea, vomiting, dysphagia, odynophagia, heartburn, abdominal pain, flatulence, bloating, diarrhea, constipation, change in stool, or blood in stool. Genitourinary: No dysuria, hematuria, discharge, frequency, urgency, nocturia, incontinence, and urinary retention. Endocrine: No heat or cold intolerance, polydipsia, polyuria, and polyphagia. Neurological: No dizziness, extremity weakness and numbness, tremors, gait disturbance, seizures, and memory impairment. Psychiatric: Denies depression, anxiety,or insomnia. Musculoskeletal: Denies neck pain, stiffness and swelling, back pain, muscle weakness, joint pain, stiffness, swelling, or limited range of motion. Skin: No rashes, itching, skin lesion, changes in hair, nail, skin texture and breast. Hematologic/Lymphatic: Denies easy bruising, bleeding tendencies, or lymph node enlargement. Objective vital signs Vital Sign Date Time Temp Pulse Resp B/P (MAP) Pulse Ox O2 Delivery O2 Flow Rate FiO2 01/01/25 11:20 98 16 100 01/01/25 11:14 Nasal Cannula* 2 28 01/01/25 09:50 91/70 01/01/25 08:34 97.5 97.5 Total Intake and Output 12/31/24 12/31/24 01/01/25 15:00 23:00 07:00 Intake Total 1240 ml 450 ml Balance 1240 ml 450 ml medications Current Medications Medications Dose Ordered Sig/Dona Route Start Time Stop Time Status Last Admin Dose Admin Clopidogrel Bisulfate 75 mg DAILY PO 12/30/24 10:00 01/01/25 09:48 75 MG Empaglifozin 10 mg DAILY PO 12/30/24 10:00 12/31/24 09:43 10 MG Lisinopril 2.5 mg DAILY PO 12/30/24 10:00 12/31/24 09:44 2.5 MG Ondansetron HCl 4 mg Q4HP PRN IV 12/29/24 19:15 Acetaminophen 650 mg Q6HP PRN PO 12/29/24 19:15 Nitroglycerin 0.4 mg Q5MINP PRN SL 12/29/24 19:15 Morphine Sulfate 2 mg Q30M PRN IV 12/29/24 19:15 Spironolactone 25 mg DAILY PO 12/31/24 10:00 12/31/24 09:43 25 MG Metoprolol Succinate 25 mg DAILY PO 12/31/24 10:00 12/31/24 09:42 25 MG Aspirin 81 mg DAILY PO 12/31/24 10:00 01/01/25 09:48 81 MG Atorvastatin Calcium 40 mg HS PO 12/30/24 22:00 12/31/24 22:31 40 MG Ipratropium [place] 0.5 mg Q6HWA [facility] 12/31/24 08:45 01/01/25 11:14 0.5 MG Albuterol 2.5 mg Q6HWA [facility] 12/31/24 08:45 01/01/25 11:13 2.5 MG Furosemide 20 mg DAILY IV 12/31/24 10:00 Enoxaparin Sodium 30 mg DAILY SC 01/01/25 10:00 Ceftriaxone Sodium 50 ml @ 100 mls/hr DAILY@09 IV 01/01/25 09:00 01/01/25 09:49 100 MLS/HR Azithromycin 250 ml @ 125 mls/hr DAILY IV 01/01/25 10:00 01/01/25 11:31 125 MLS/HR Examination General Appearance: Alert, Oriented X3, Cooperative, No acute distress HEENT: Atraumatic, PERRLA, EOMI, Mucous membrane moist/pink Respiratory: Clear to auscultation, Normal air movement, wheezing present Cardiovascular: Regular rate, Normal S1, Normal S2, No murmurs, no chest wall tenderness Abdominal: Normal bowel sounds, Soft, No tenderness, No hepatospenomegaly, No masses Extremities: No clubbing, No cyanosis, No edema, Normal pulses, No tenderness/swelling Skin: No rashes, No breakdown, No significant lesion Neuro: Normal gait, Normal speech, Strength at 5/5 X4 ext, Normal tone, Sensation intact, Cranial nerves 3-12 NL, Reflexes 2+ Psych/Mental Status: Mental status NL, Mood NL laboratory and microbiology Laboratory Tests 01/01/25 06:43 Test 01/01/25 06:43 Range/Units Serum Glucose 85 74-106 mg/dL Problem List/Assessment/Plan Problem List/Assessment/Plan Assessment and plan Pneumonia, Gram-positive per Gram-negative on azithromycin and ceftriaxone NSTEMI with history of 2 PTCA 3 weeks ago Left-sided Cardiac catheterization done, coronary vessels patent Right-sided cardiac catheterization scheduled for today Chronic HFrEF 15% On GDMT Holding Entresto, we will resume later Dyslipidemia continue atorvastatin Essential hypertension BP currently soft Methamphetamine abuse Per patient not used since last admission Nicotine dependence Counseled on smoking cessation Patient's status and plan discussed with the patient. Case discussed with Dr. Belle Plan discussed with: Patient My Orders My Orders Orders - FREDO JONES Procedure Category Date Status Time Comprehensive LAB 01/01/25 In Process Metabolic Panel 04:00 Complete Blood Count LAB 01/02/25 Verified 04:00 Date of Service: Jan 01, 2025 Billing Provider: CECI BELLE MD Common Visit Codes: [id number] INP/OBS CARE(HIGH) FREDO JONES Jan 01, 2025 11:52 CECI BELLE MD Jan 09, 2025 21:28
[2025-01-01 11:59] LABS: Bilirubin, Total 0.7 mg/dL (0.2-1.0)
[2025-01-01] MEDS: HEPARIN IN NS 1000Units/500mL 1,500 ML ONE (15:31)
[2025-01-01] MEDS: IODIXANOL 320MG/ML 100ML BTL IV ONE (15:31)
[2025-01-01] MEDS: ANGIOMAX 250 MG VIAL IV ONE (16:43)
[2025-01-01] MEDS: HEPARIN SODIUM (PORCINE) 5000 UNITS/ML 1ML VIAL ONE (16:43)
[2025-01-01] MEDS: MIDAZOLAM HCL 2MG/2ML 2ml VIAL (1mg/ml) ONE (16:44)
[2025-01-01] MEDS: VERAPAMIL 2.5MG/ML INJ 2ML VIAL IV ONE (16:44)
[2025-01-01] MEDS: LIDOCAINE 2%HCL (LOCAL ANESTH.) INJ 20ML MDV ONE (16:44)
[2025-01-01] MEDS: fentaNYL CITRATE 100 MCG/2 ML VL ONE (16:44)
[2025-01-01] MEDS: CLOPIDOGREL BISULFATE 75 MG TAB ONE (17:53)
--- NOTE | 2025-01-01 18:09 | DVHOP2 ---
Operative Report - 2 Report Details Date: 01/01/25 Preop Diagnosis: Coronary artery disease Postop Diagnosis: Successful angioplasty and aperture of DIRECTOR ERP RCA Left heart catheterization to measure ventricular pressures was performed. Surgeon: Janet Beatty MD Anesthesiologist: Conscious sedation Anesthesia: Mac, Local Consent: The patient was informed of the risks and benefits of the procedure. These include but are not limited to complications of anesthesia, postoperative infection, incomplete relief of symptoms, recurrence of symptoms, damage to blood vessels, nerves and tendons, deep venous thrombosis, pulmonary embolism and possible need for repeat surgery in the future. Complications: No complications Findings: Occluded RCA Indications for Surgery: Chest pain/cardiomyopathy Name of Procedure Performed RCA angioplasty. Aperture of DIRECTOR ERP Procedure Details Procedure Details: Prior local anesthesia with 2% lidocaine to the right wrist and full informed consent obtained the patient was prepped and draped in usual fashion followed by placement of a AL1 one guide. We performed left heart catheterization to measure ventricular pressures. Hemodynamically the aortic blood pressure was 110/70 with an end-diastolic p ressure noted to be 18 noted on the LV cannulation Angiographic evaluation revealed several tandem lesions occluded in the RCA with intracoronary collaterals to the distal RCA. ONEYDA one to ONEYDA two flow noted. Patient does have a [place] heart [employer] class four for congestive heart failure. After placing a AL1 one guiding catheter we placed a Fielder wire to negotiate the significant stenosis in the proximal mid and distal segment of the RCA. After several minutes and using advanced wire technique we were able to pass the wires into the distal RCA. We then took a 1.5 mm Medtronic balloon and we were able to negotiate passage of the balloon beyond the midportion several dilatation. Once we were able to pass the midportion we were then able to gain access into the mid and distal segments of the RCA pre dilating with a 1.5 balloon followed by 2.5 balloon. We were not able to place a stent distally given the significant tortuosity and calcification for which we placed a Guidezilla over the Fielder wire and used a 2.5 long balloon to pre dilate and advanced the Guidezilla distally. The patient was experiencing chest pain and shortness of breath throughout the process and placement of stents and balloons in the RCA. He remained hemodynamically stable. We then placed a 3-0 by 32 mm stent into the mid to distal segment of the RCA followed by a three 5 x 12 to the proximal RCA overlapping the initial stent. There was notably increased flow and resolution of the previously mentioned stenosis. There was ONEYDA three flow noted. We gave 100 mcg of intracoronary nitroglycerin the patient's symptoms. Over a period of minutes the patient gradually improved was asymptomatic. He remained hemodynamically stable. Impression: successful PTCA and stenting of the DIRECTOR ERP/RCA. Recommendations: continue dual antiplatelet therapy and guideline cardiomyopathy congestive heart failure coronary artery disease.: Condition Guarded Disposition Still a Patient Date of Service: Jan 01, 2025 Billing Provider: JANET BEATTY Sr., MD Cardiology Common Codes: [id number] INP/OBS CARE (High) Cardiology Procedure Codes: 36724 -PTCA W/STENT PLACEMENT, [id number]-[id number] HEART CATH W/INTRA INJ JANET BEATTY Sr., MD Jan 01, 2025 18:09
[2025-01-02 01:00] VITALS: BP 101/74; PULSE 89; RESP 20; TEMP 97.6; O2SAT 95
[2025-01-02 05:00] VITALS: BP 106/78; PULSE 90; RESP 20; TEMP 97.4; O2SAT 97
[2025-01-02 07:12] VITALS: PULSE 95; RESP 20; O2SAT 97
[2025-01-02 07:18] VITALS: PULSE 98; RESP 20; O2SAT 100
[2025-01-02 09:00] VITALS: BP 108/66; PULSE 96; RESP 20; TEMP 97.1; O2SAT 97
--- NOTE | 2025-01-02 09:51 | DVHPN2 ---
Consult Progress Note Date Seen: Jan 02, 2025 Subjective Review of Systems: CVS:Normal, RESPIRATORY:Normal, NEURO:Normal Objective vital signs Vital Sign Date Time Temp Pulse Resp B/P (MAP) Pulse Ox O2 Delivery O2 Flow Rate FiO2 01/02/25 07:18 98 20 100 01/02/25 07:12 Room Air* 0 21 01/02/25 05:00 97.4 106/78 (87) 97.4 Total Intake and Output 01/01/25 01/01/25 01/02/25 15:00 23:00 07:00 Intake Total 300 ml 0 ml 300 ml Output Total 350 ml 525 ml Balance 300 ml -350 ml -225 ml medications Current Medications Medications Dose Ordered Sig/Dona Route Start Time Stop Time Status Last Admin Dose Admin Clopidogrel Bisulfate 75 mg DAILY PO 12/30/24 10:00 01/01/25 09:48 75 MG Empaglifozin 10 mg DAILY PO 12/30/24 10:00 12/31/24 09:43 10 MG Lisinopril 2.5 mg DAILY PO 12/30/24 10:00 12/31/24 09:44 2.5 MG Ondansetron HCl 4 mg Q4HP PRN IV 12/29/24 19:15 Acetaminophen 650 mg Q6HP PRN PO 12/29/24 19:15 Nitroglycerin 0.4 mg Q5MINP PRN SL 12/29/24 19:15 Morphine Sulfate 2 mg Q30M PRN IV 12/29/24 19:15 Spironolactone 25 mg DAILY PO 12/31/24 10:00 12/31/24 09:43 25 MG Metoprolol Succinate 25 mg DAILY PO 12/31/24 10:00 12/31/24 09:42 25 MG Aspirin 81 mg DAILY PO 12/31/24 10:00 01/01/25 09:48 81 MG Atorvastatin Calcium 40 mg HS PO 12/30/24 22:00 01/01/25 21:54 40 MG Ipratropium Saxon 0.5 mg Q6HWA NEB 12/31/24 08:45 01/02/25 07:12 0.5 MG Albuterol 2.5 mg Q6HWA NEB 12/31/24 08:45 01/02/25 07:12 2.5 MG Furosemide 20 mg DAILY IV 10/22/25 10:00 Enoxaparin Sodium 30 mg DAILY SC 01/01/25 10:00 Ceftriaxone Sodium 50 ml @ 100 mls/hr DAILY@09 IV 01/01/25 09:00 01/01/25 09:49 100 MLS/HR Azithromycin 250 ml @ 125 mls/hr DAILY IV 01/01/25 10:00 01/01/25 11:31 125 MLS/HR Examination: LUNGS:Normal, CVS:Normal, NEURO:Normal laboratory and microbiology Laboratory Tests 01/01/25 06:43 Test 01/01/25 06:43 Range/Units Serum Glucose 85 74-106 mg/dL Problem List/Assessment/Plan Problem List/Assessment/Plan NSTEMI status post staged PCI of the RCA including 2DES Coronary artery disease s/p PTCA with stenting to LAD and diagonal (on aspirin and Plavix) Acute on chronic HFrEF, NYHA class III Ischemic cardiomyopathy Hypokalemia Tobacco use History of methamphetamine use Medical noncompliance Plan/Recommendation (Dr. Beatty) * Recent transthoracic echocardiogram from 12/11/2024 revealed an EF of 15% * Currently on full guideline directed medical therapy for CHF * Dual-antiplatelet therapy and lipid-lowering agent * Risk factor modifications, counseled * Adherence to dual antiplatelet therapy and CHF medications Repeat transthoracic echocardiogram after 3 months of full GDMT for CHF. If patient's LV function continues to be diminished, consider referral for ICD implantation. There is no further cardiac work-up indicated at this time. Signing off at this time. Thank you for allowing us to care for this patient. Please call with any questions or concerns. This medical document was created using an electronic medical record system with voice recognition software and computerized dictation system. Although this document has been carefully reviewed, there might still be some phonetic and typographical errors. Occasional wrong-word or ``sound-alike substitutions may have occurred due to the inherent limitations of voice recognition software. These areas are purely typographical due to imperfections of the software programs and do not reflect any compromise in the patient's medical care. Please read the chart carefully and recognize, using context, where these substitutions have occurred. Plan discussed with: Patient, Other Date of Service: Jan 02, 2025 Billing Provider: LORETTA FRIAS Cardiology Common Codes: [id number] HOSP CARE(High LORETTA FRIAS Jan 02, 2025 09:51
[2025-01-02] MEDS ORDERED: SPIRONOLACTONE 25 MG TAB PO SCH (10:00)
[2025-01-02] MEDS ORDERED: FUROSEMIDE 20 MG TAB PO SCH (10:00)
[2025-01-02 10:28] LABS: Hematocrit 43.1 % (41.0-53.0); Hemoglobin 14.3 g/dL (13.5-17.5); Mean Corpuscular Hemoglobin 30.5 pg (28.0-32.0); Mean Corpuscular Volume 91.9 fL (80.0-100.0); Nucleated Red Blood Cells % 0.0 %
[2025-01-02 10:49] LABS: Alanine Aminotransferase 36 U/L (7-40); Albumin 4.4 g/dL (3.2-4.8); Alkaline Phosphatase 88 U/L (46-116); Anion Gap 10 (5-15); BUN/Creatinine Ratio 12.5 (10.0-20.0); Bilirubin, Total 1.0 mg/dL (0.2-1.0); Blood Urea Nitrogen 10 mg/dL (9-23); Calcium 9.5 mg/dL (8.7-10.4); Carbon Dioxide 25 mmol/L (20-31); Chloride 104 mmol/L (98-107); Potassium 4.2 mmol/L (3.5-5.1); Sodium 139 mmol/L (136-145); Total Protein 7.4 g/dL (5.7-8.2)
[2025-01-02 10:51] LABS: Glucose 117 mg/dL (74-106)
[2025-01-02 11:08] VITALS: BP 108/66; PULSE 96; TEMP 36.2
--- NOTE | 2025-01-02 15:10 | DVHDSRES ---
Discharge Summary Date of Admission Resident Creating Document: CECI STYLES MD Dec 29, 2024 at 19:03 Date of Discharge: Jan 02, 2025 Labs/Diagnostic Data: Laboratory Results Test 01/02/25 10:10 01/01/25 06:43 12/30/24 08:35 12/29/24 20:00 White Blood Count 7.1 10^3/uL (4.4-10.8) Red Blood Count 4.69 10^6/uL (4.5-5.90) Hemoglobin 14.3 g/dL (13.5-17.5) Hematocrit 43.1 % (41.0-53.0) Mean Corpuscular Volume 91.9 fL (80.0-100.0) Mean Corpuscular Hemoglobin 30.5 pg (28.0-32.0) Mean Corpuscular Hemoglobin Concent 33.1 g/dL (32.0-36.0) Red Cell Distribution Width 16.4 % (11.8-14.3) Platelet Count 250 10^3/uL (140-450) Mean Platelet Volume 7.8 fL (6.9-10.8) Neutrophils (%) (Auto) 75.3 % (37.0-80.0) Lymphocytes (%) (Auto) 14.8 % (10.0-50.0) Monocytes (%) (Auto) 8.1 % (0.0-12.0) Eosinophils (%) (Auto) 1.1 % (0.0-7.0) Basophils (%) (Auto) 0.7 % (0.0-2.0) Neutrophils # (Auto) 5.3 10 ^3/uL (1.6-8.6) Lymphocytes # (Auto) 1.0 10 ^3/uL (0.4-5.4) Monocytes # (Auto) 0.6 10 ^3/uL (0-1.3) Eosinophils # (Auto) 0.1 10 ^3/uL (0-0.8) Basophils # (Auto) 0 10 ^3/uL (0-0.2) Nucleated Red Blood Cells 0.0 % Sodium Level 139 mmol/L (136-145) Potassium Level 4.2 mmol/L (3.5-5.1) Chloride Level 104 mmol/L (98-107) Carbon Dioxide Level 25 mmol/L (20-31) Anion Gap 10 (5-15) Blood Urea Nitrogen 10 mg/dL (9-23) Creatinine 0.80 mg/dL (0.700-1.30) Glomerular Filtration Rate Calc 97 mL/min (>90) BUN/Creatinine Ratio 12.5 (10.0-20.0) Serum Glucose 117 mg/dL (74-106) Calcium Level 9.5 mg/dL (8.7-10.4) Total Bilirubin 1.0 mg/dL (0.2-1.0) Aspartate Amino Transferase (AST) 48 U/L (13-40) Alanine Aminotransferase (ALT) 36 U/L (7-40) Alkaline Phosphatase 88 U/L (46-116) Total Protein 7.4 g/dL (5.7-8.2) Albumin 4.4 g/dL (3.2-4.8) Prothrombin Time 10.9 sec (9.3-11.8) Prothrombin Time INR 1.03 (0.9-1.15) Activated Partial Thromboplast Time 28.5 SEC (24.5-34.5) Magnesium Level 1.7 mg/dL (1.6-2.6) Triglycerides Level 85 mg/dL (< 150) Cholesterol Level 98 mg/dL (< 200) LDL Cholesterol 44 mg/dL (< 100) HDL Cholesterol 39 mg/dL (40-59) Thyroid Stimulating Hormone (TSH) 2.70 uIU/mL (0.55-4.78) Troponin I High Sensitivity 99028 ng/L (</=54) Test 12/29/24 16:05 B-Type Natriuretic Peptide 1667.05 pg/mL (0-100) Other Laboratory Tests 01/02/25 10:10 Brief Hx & Hospital Course: This is a 69-year-old male patient who presented to the emergency room with chief complaint of shortness of breath and fatigue for one week. The patient was recently seen at this facility from 11/19/24-12/13/24 where he was diagnosed with cardiopulmonary arrest, cardiogenic and septic shock. On 12/10/2024 the patient underwent a coronary angiogram in which catheter based intervention was done to the proximal LAD and diagonal vessel. At that time, a stage procedure to RCA was recommended as outpatient. The patient states he tried to follow up with 's office in the outpatient clinic, but was having trouble getting an appointment. Given worsening shortness of breath and generalized fatigue, the patient decided to come to the emergency room. Initial twelve electrocardiogram revealed normal sinus rhythm with nonspecific ST segment changes to inferolateral leads, PVC's and left ventricular hypertrophy. Initial troponin level of 85740ka/L. He denied any chest pain. Significant past medical history includes coronary artery disease s/p PTCA X 2 MARIE (on aspirin and Plavix), congestive heart failure, ischemic cardiomyopathy, tobacco use, and history of methamphetamine use. 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 Patient requested to be sent home. On the day of discharge, labs were normal and the patient felt clinically better, hence being discharged. Condition at Discharge: Fair Final Diagnosis/Problems List Pneumonia, Gram-positive per Gram-negative NSTEMI status post staged PCI of the RCA including 2DES Coronary artery disease s/p PTCA with stenting to LAD and diagonal (on aspirin and Plavix) Acute on chronic HFrEF, NYHA class III Ischemic cardiomyopathy Hypokalemia Tobacco use History of methamphetamine use Medical noncompliance Discharge Disposition: Home Discharge Instruct/Medications Diet: Cardiac 2g Na,low cholest Activity: No Restrictions, As Tolerated Follow Up/Referral: Please follow up with PCP in 1-2 weeks Please follow up with Cardiology in the outpatient clinic in 2-3 weeks Medications: Aspirin 81 mg p.o. daily Plavix 75 mg p.o. daily Atorvastatin 40 mg p.o. daily Continue Jardiance, lisinopril, metoprolol Scheduled Amlodipine Besylate (Amlodipine Besylate), 1 TAB PO DAILY, (Reported) Aspirin (Aspir-81), 1 TAB PO DAILY Atorvastatin Calcium (Atorvastatin Calcium), 1 TAB PO DAILY, (Reported) Clopidogrel Bisulfate (Plavix), 1 TAB PO DAILY Empagliflozin (Jardiance), 10 MG PO DAILY Lisinopril (Lisinopril), 1 TAB PO DAILY Miscellaneous Medications Albuterol Sulfate (Ventolin Mdi), 90 MCG IN, (Reported) Temazepam (Temazepam), 15 MG PO, (Reported) Discharge Statement: "Patient was advised to return to the ER or call 911 if any headaches, dizziness, shortness of breath, chest pain, abdominal pain, bleeding, fevers, or worsening of medical condition. Patient was counseled about treatment plan, medications, possible side effects, patientverbalized understanding. All questions were answered to the best of my ability. This discharge took greater then 30 minutes in planning, reviewing documentation, counseling the patient, and discussing with other team members." ASSESSMENT ASSESSMENT Assessment Pneumonia, Gram-positive per Gram-negative on azithromycin and ceftriaxone NSTEMI with history of 2 PTCA 3 weeks ago Left-sided Cardiac catheterization done, coronary vessels patent Right-sided cardiac catheterization scheduled for today Chronic HFrEF 15% On GDMT Holding Entresto, we will resume later Dyslipidemia continue atorvastatin Essential hypertension BP currently soft Methamphetamine abuse Per patient not used since last admission Nicotine dependence Date of Service: Jan 02, 2025 Billing Provider: CECI STYLES MD Common Visit Codes: 57080-DEA/OBS DISCH DAY >30min FREDO JONES RESIDENT Jan 02, 2025 15:10 CECI STYLES MD Jan 09, 2025 21:28
== END 2025-01-02 11:40 | disposition home or self-care (01) | DRG 321 ==
LOC: ER 14:51 → OVERFLOW 19:03 → TELE-WESTW 12-30 02:05
PROVIDERS: ADMIT Internal Medicine Geriatric Medicine; ATTEND Internal Medicine Geriatric Medicine
PROC: 4A023N7 Measurement of Cardiac Sampling and Pressure, Left Heart, Percutaneous Approach (ICD-10-PCS; 2024-12-30)
PROC: B211YZZ Fluoroscopy of Multiple Coronary Arteries using Other Contrast (ICD-10-PCS; 2024-12-30)
PROC: 02703EZ Dilation of Coronary Artery, One Artery with Two Intraluminal Devices, Percutaneous Approach (ICD-10-PCS; principal; 2025-01-01)
PROC: 4A023N7 Measurement of Cardiac Sampling and Pressure, Left Heart, Percutaneous Approach (ICD-10-PCS; 2025-01-01)
PROC: B211YZZ Fluoroscopy of Multiple Coronary Arteries using Other Contrast (ICD-10-PCS; 2025-01-01)
DX: I21.4 Non-ST elevation (NSTEMI) myocardial infarction (principal); I50.23 Acute on chronic systolic (congestive) heart failure; J15.69 Pneumonia due to other Gram-negative bacteria; J15.9 Unspecified bacterial pneumonia; I25.5 Ischemic cardiomyopathy; I25.10 Atherosclerotic heart disease of native coronary artery without angina pectoris; E87.6 Hypokalemia; F17.210 Nicotine dependence, cigarettes, uncomplicated; I11.0 Hypertensive heart disease with heart failure; E78.5 Hyperlipidemia, unspecified; F15.10 Other stimulant abuse, uncomplicated; Z79.82 Long term (current) use of aspirin; Z95.5 Presence of coronary angioplasty implant and graft; Z91.199 Patient's noncompliance with other medical treatment and regimen due to unspecified reason; Z79.899 Other long term (current) drug therapy
CPT/HCPCS: 36415; 71045; 80048; 80053; 80061; 83735; 83880; 84443; 84484; 85025; 85610; 85730; 92941; 93005; 93458; 94640; 96365; 96375; 99152; 99291; G0378; J2250; Q9967

== ENCOUNTER 2025-02-14 20:01 | Inpatient (IN) | payer OTHER, MEDICAID ==
[~2025-02-14] VITALS: Ht 180.3 cm; Wt 80.2 kg
[~2025-02-14 20:01] MED LIST changes: +ALBUAER3 IN; +ASPI1TAB19 PO; +ATOR40TA52 PO; -CEPH-37 PO; -MELA3TAB27 PO; -NORPTMEDS CO; -SILV-51 TOP; +TEMA15CA PO; -TRAM50TA2 PO
--- NOTE | 2025-02-14 20:29 | ED.PDOC ---
History of Present Illness HPI Comments 69-year-old male who came to ER via EMS for anxiety. Patient states ever since he had cardiac stents inserted 3 months ago, he started having bouts of anxiety and panic attacks. Had another anxiety attack earlier. 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 Allergies: Coded Allergies: NO KNOWN ALLERGIES (Unverified , 02/14/25) Information Source: Patient, Emergency Med Personnel Mode of Arrival: EMS Past Medical History PAST MEDICAL HISTORY: CAD Surgical History: PTCA Family History Family History: Reviewed,noncontributory to illness Social History Smoker: Non-Smoker Alcohol: Denies ETOH Use Drugs: Methamphetamine Constitutional: denies: chills, diaphoresis, fatigue, fever, malaise, sweats, weakness, others EENTM: denies: blurred vision, double vision, ear bleeding, ear discharge, ear drainage, ear pain, ear ringing, eye pain, eye redness, hearing loss, mouth pain, mouth swelling, nasal discharge, nose bleeding, nose congestion, nose pain, photophobia, tearing, throat pain, throat swelling, voice changes, others Respiratory: denies: cough, hemoptysis, orthopnea, SOB at rest, shortness of breath, SOB with excertion, stridor, wheezing, others Cardiovascular: denies: chest pain, dizzy spells, diaphoresis, Dyspnea on exertion, edema, irregular heart beat, left arm pain, lightheadedness, palpitations, PND, syncope, others Gastrointestinal: denies: abdomen distended, abdominal pain, blood streaked bowels, constipated, diarrhea, dysphagia, difficulty swallowing, hematemesis, melena, nausea, poor appetite, poor fluid intake, rectal bleeding, rectal pain, vomiting, others Genitourinary: denies: burning, dysuria, flank pain, frequency, hematuria, incontinence, penile discharge, penile sore, pain, testicle pain, testicle swelling, urgency, others Neurological: denies: dizziness, fainting, headache, left sided numbness, left sided weakness, numbness, paresthesia, pre-existing deficit, right sided nu mbness, right sided weakness, seizure, speech problems, tingling, tremors, weakness, others Musculoskeletal: denies: back pain, gout, joint pain, joint swelling, muscle pain, muscle stiffness, neck pain, others Integumetry: denies: bruises, change in color, change in hair/nails, dryness, laceration, lesions, lumps, rash, wounds, others Allergic/Immunocompromised: denies: Difficulty Healing, Frequent Infections, Hives, Itching, others Hematologic/Lymphatic: denies: anemia, blood clots, easy bleeding, easy bruising, swollen glands, others Endocrine: denies: excessive hunger, excessive sweating, excessive thirst, excessive urination, flushing, intolerance to cold, intolerance to heat, unexplained weight gain, unexplained weight loss, others Psychiatric: reports: anxiety; denies: bipolar disorder, depression, hopeless, panic disorder, schizophrenia, sleepless, suicidal, others Physical Exam General Appearance: No Apparent Distress, Normal, Other (Pressured speech) HEENT: Normal ENT Inspection, Pharynx Normal, TMs Normal Neck: Full Range of Motion, Non-Tender, Normal, Normal Inspection Respiratory: Chest Non-Tender, Lungs Clear, No Accessory Muscle Use, No Respiratory Distress, Normal Breath Sounds Cardiovascular: No Edema, No JVD, No Murmur, No Gallop, Normal Peripheral Pulses, Tachycardia Breast Exam: Deferred Gastrointestinal: No Organomegaly, Non Tender, No Pulsatile Mass, Normal Bowel Sounds, Soft Genitalia: Deferred Pelvic: Deferred Rectal: Deferred Extremities: No calf tenderness, Normal capillary refill, Normal inspection, Normal range of motion, Non-tender, No pedal edema Musculoskeletal : Apperance: Normal Neurologic: Alert, 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 Was a procedure done?: No Differential Dx Considerations may include: Anxiety, substance abuse X-Ray, Labs, Meds, VS Vital Signs Date Time Temp Pulse Resp B/P (MAP) Pulse Ox O2 Delivery O2 Flow Rate FiO2 02/14/25 20:25 97.7 95 18 140/98 99 97.7 Lab Test 02/14/25 21:18 02/14/25 20:35 Range/Units Troponin I High Sensitivity 865 *H 853 *H </=54 ng/L White Blood Count 9.0 4.4-10.8 10^3/uL Red Blood Count 4.68 4.5-5.90 10^6/uL Hemoglobin 13.4 L 13.5-17.5 g/dL Hematocrit 41.9 41.0-53.0 % Mean Corpuscular Volume 89.6 80.0-100.0 fL Mean Corpuscular Hemoglobin 28.6 28.0-32.0 pg Mean Corpuscular Hemoglobin Concent 31.9 L 32.0-36.0 g/dL Red Cell Distribution Width 16.0 H 11.8-14.3 % Platelet Count 231 140-450 10^3/uL Mean Platelet Volume 8.2 6.9-10.8 fL Neutrophils (%) (Auto) 69.9 37.0-80.0 % Lymphocytes (%) (Auto) 19.4 10.0-50.0 % Monocytes (%) (Auto) 8.7 0.0-12.0 % Eosinophils (%) (Auto) 1.5 0.0-7.0 % Basophils (%) (Auto) 0.5 0.0-2.0 % Neutrophils # (Auto) 6.3 1.6-8.6 10 ^3/uL Lymphocytes # (Auto) 1.7 0.4-5.4 10 ^3/uL Monocytes # (Auto) 0.8 0-1.3 10 ^3/uL Eosinophils # (Auto) 0.1 0-0.8 10 ^3/uL Basophils # (Auto) 0 0-0.2 10 ^3/uL Nucleated Red Blood Cells 0.1 % Sodium Level 142 136-145 mmol/L Potassium Level 3.8 3.5-5.1 mmol/L Chloride Level 106 98-107 mmol/L Carbon Dioxide Level 26 20-31 mmol/L Anion Gap 10 5-15 Blood Urea Nitrogen 17 9-23 mg/dL Creatinine 0.96 0.700-1.30 mg/dL Glomerular Filtration Rate Calc 87 >90 mL/min BUN/Creatinine Ratio 17.7 10.0-20.0 Serum Glucose 89 74-106 mg/dL Calcium Level 9.5 8.7-10.4 mg/dL Time of 1ST Reevaluation: 20:25 Reevaluation 1ST: Unchanged Patient Education/Counseling: Diagnosis, Treatment, Prognosis, Need For Follow Up Family Education/Counseling: No Family Present Comments This is a patient who has a history of cardiovascular disease has had a stent put in patient came in for shortness of breath which he attributes to anxiety. Troponin is elevated. It does no ST elevations. Patient will be admitted for NSTEMI. SEPSIS Sepsis Screen Physician Orders Chest Xray 1 View (02/14/25 20:24) Electrocardigram (02/14/25 20:24) Continuous Ekg Monitoring 08,12,16,20,00,04 (02/14/25 20:24) Drug Screen (02/14/25 20:24) Troponin-I Hs (02/14/25 23:24) Electrocardigram (02/14/25 21:24) Electrocardigram (02/14/25 23:24) Vital Signs Date Time Temp Pulse Resp B/P (MAP) Pulse Ox O2 Delivery O2 Flow Rate FiO2 02/14/25 20:25 97.7 95 18 140/98 99 97.7 Laboratory Tests Test 02/14/25 20:35 White Blood Count 9.0 10^3/uL (4.4-10.8) Departure 1 Departure Time of Disposition: 22:16 Impression: Primary Impression: NSTEMI (non-ST elevated myocardial infarction) Disposition: ADMITTED INPATIENT Admit to: ICU Condition: Serious Discharged With: Self Critical Care Note Critical Care Time?: Yes (55 min-critical care time only) Critical care comment: Due to concerns for patients condition deteriorating, the care required my highest level of attention and readiness to intervene. I assessed the patient, reviewed the medical records, ordered the appropriate tests and treatments, then reassessed for results and responsiveness. I communicated with medical personnel and consultants and formulated a plan of care. Total critical care time excludes any procedures Stability Stability form required: No Heart Score Heart Score: Heart Score Response (Comments) Value History Moderate Suspicious 1 EKG Repolarization Disturb 1 Age >65 2 Risk Factors >3 or Hx ASHD 2 Troponin >3 x's Normal limit 2 Total 8 I personally scribed for GILLIAN COLLINS MD ([email or web address]) on 02/14/25 at 20:29. Electronically submitted by Calvin Palacio ([email or web address]). GILLIAN COLLINS MD Feb 14, 2025 20:29
[2025-02-14 20:47] LABS: Hematocrit 41.9 % (41.0-53.0); Hemoglobin 13.4 g/dL (13.5-17.5); Mean Corpuscular Hemoglobin 28.6 pg (28.0-32.0); Mean Corpuscular Volume 89.6 fL (80.0-100.0); Nucleated Red Blood Cells % 0.1 %
[2025-02-14 20:55] LABS: Chloride 106 mmol/L (98-107); Potassium 3.8 mmol/L (3.5-5.1); Sodium 142 mmol/L (136-145)
[2025-02-14 20:56] LABS: Anion Gap 10 (5-15); Carbon Dioxide 26 mmol/L (20-31)
[2025-02-14 20:57] LABS: Calcium 9.5 mg/dL (8.7-10.4)
[2025-02-14 21:01] LABS: BUN/Creatinine Ratio 17.7 (10.0-20.0); Blood Urea Nitrogen 17 mg/dL (9-23); Glucose 89 mg/dL (74-106)
--- NOTE | 2025-02-14 21:55 | DVH ---
EXAM: XY CHEST XRAY 1 VIEW HISTORY: sob TECHNIQUE: 1 view of the chest COMPARISON: XY CHEST PORTABLE on DOS: 12/31/24 FINDINGS/IMPRESSION: LUNGS: Small right pleural effusion. Peripheral interstitial edema. Peribronchial thickening, which is nonspecific however may represent infectious versus inflammatory bronchitis. MEDIASTINUM: Mild cardiomegaly. BONES: No acute osseous abnormality. OTHER: None.
[2025-02-15] MEDS: ALPRAZolam 0.25 MG TAB PO ONE (00:11)
--- NOTE | 2025-02-15 09:55 | ECG ---
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
[2025-02-15] MEDS ORDERED: NITROGLYCERIN 0.4 MG SL TAB SL PRN (10:00)
[2025-02-15] MEDS ORDERED: MORPHINE SULFATE INJ 2 MG/ml SYRG IV PRN (10:00)
[2025-02-15 10:12] VITALS: BP 134/89; PULSE 88; RESP 20; TEMP 98; O2SAT 98
[2025-02-15] MEDS: IOHEXOL 350 MG/ML 100ML IJ ONE (10:32)
--- NOTE | 2025-02-15 10:47 | DVHHPRES ---
History of Present Illness Resident Creating Document: DAVID BARBOZA RESIDENT History of Present Illness 72-year-old male with past medical history of coronary artery disease status post PCI three months ago presented with complaints of anxiety, shortness of breath. Patient mentioned that he has been feeling anxious since the procedure but his anxiety worsened yesterday and he has a associated shortness of breath that prompted him to come to the ED. On evaluation, patient is currently on 2 L of oxygen through nasal cannula and mentioning complaints of dyspnea. He mentioned that he has been mostly inactive after the procedure and does not do too much activity as he feels shortness of breath. Patient mentioned that he he has not quit amphetamine and last was two days ago. He also mentioned of active smoking. He is lying mostly on his bed. He denied any recent travel through long flights. She denied any chest pain, cough, palpitations, nausea, vomiting, abdominal pain. He denied any fever, chills. Past medical history coronary artery disease status post PCI three months ago, ?COPD Past surgical history No recent surgery/procedures other than PCI Social history Active smoking, consumes amphetamine, denied alcohol and marijuana Family history Noncontributory to the above illness Medication history Aspirin, Plavix, Jardiance, statins, amlodipine, Trelegy, losartan Review of Systems Review of Systems As described in the HPI Allergies: Coded Allergies: NO KNOWN ALLERGIES (Unverified , 11/19/24) Medications Current Medications Medications Dose Ordered Sig/Dona Route Start Time Stop Time Status Last Admin Dose Admin Albuterol 2.5 mg Q4HPRN PRN NEB 02/15/25 10:00 Ipratropium [place] 0.5 mg Q4HPRN PRN NEB 02/15/25 10:00 Morphine Sulfate 2 mg Q30M PRN IV 02/15/25 10:00 Nitroglycerin 0.4 mg Q5MINP PRN SL 02/15/25 10:00 Exam Vital Signs Vital Signs Date Time Temp Pulse Resp B/P (MAP) Pulse Ox O2 Delivery O2 Flow Rate FiO2 02/15/25 10:12 98.0 88 20 134/89 98 2.0 28 98.0 02/15/25 08:00 Nasal Cannula* Exam Examination General Appearance: Alert, Oriented X3, Cooperative, moderate respiratory distress HEENT: EOMI Respiratory: Bilateral basilar crackles, expiratory wheezing Cardiovascular: Regular rate, Normal S1, Normal S2 Abdominal: Normal bowel sounds Extremities: Pedal edema, Skin: No rashes, No breakdown Neuro: Normal speech and tone Labs/Xrays Labs Test 02/14/25 23:32 02/14/25 20:35 Range/Units Troponin I High Sensitivity 896 *H </=54 ng/L White Blood Count 9.0 4.4-10.8 10^3/uL Red Blood Count 4.68 4.5-5.90 10^6/uL Hemoglobin 13.4 L 13.5-17.5 g/dL Hematocrit 41.9 41.0-53.0 % Mean Corpuscular Volume 89.6 80.0-100.0 fL Mean Corpuscular Hemoglobin 28.6 28.0-32.0 pg Mean Corpuscular Hemoglobin Concent 31.9 L 32.0-36.0 g/dL Red Cell Distribution Width 16.0 H 11.8-14.3 % Platelet Count 231 140-450 10^3/uL Mean Platelet Volume 8.2 6.9-10.8 fL Neutrophils (%) (Auto) 69.9 37.0-80.0 % Lymphocytes (%) (Auto) 19.4 10.0-50.0 % Monocytes (%) (Auto) 8.7 0.0-12.0 % Eosinophils (%) (Auto) 1.5 0.0-7.0 % Basophils (%) (Auto) 0.5 0.0-2.0 % Neutrophils # (Auto) 6.3 1.6-8.6 10 ^3/uL Lymphocytes # (Auto) 1.7 0.4-5.4 10 ^3/uL Monocytes # (Auto) 0.8 0-1.3 10 ^3/uL Eosinophils # (Auto) 0.1 0-0.8 10 ^3/uL Basophils # (Auto) 0 0-0.2 10 ^3/uL Nucleated Red Blood Cells 0.1 % Sodium Level 142 136-145 mmol/L Potassium Level 3.8 3.5-5.1 mmol/L Chloride Level 106 98-107 mmol/L Carbon Dioxide Level 26 20-31 mmol/L Anion Gap 10 5-15 Blood Urea Nitrogen 17 9-23 mg/dL Creatinine 0.96 0.700-1.30 mg/dL Glomerular Filtration Rate Calc 87 >90 mL/min BUN/Creatinine Ratio 17.7 10.0-20.0 Serum Glucose 89 74-106 mg/dL Calcium Level 9.5 8.7-10.4 mg/dL SEPSIS Sepsis Screen Date sepsis recognized/suspect: Feb 15, 2025 Time Sepsis recognized/suspect: 08 Recent Procedure: Yes On Antibiotic Therapy: No Respiratory Rate >20: No Heart Rate >90: Yes Temp<36 C (96.8 F) or >38.3 C: No SBP <90 or MAP <65 mmHG: No New Acute Mental Status Change: No Is the patient on CPAP, BIPAP,: No Physician Orders Ct Angio Chest Contrast (02/15/25 09:51) Echo 2d Mode Cardiac Dop (02/15/25 09:51) B-Type Natriuretic Peptide (02/15/25 09:51) Albuterol Medneb (Ventolin Medneb) (02/15/25 10:00) Ipratropium Medneb (Atrovent Medneb) (02/15/25 10:00) Admit (02/15/25 09:51) Morphine Sulfate Injection (02/15/25 10:00) Oxygen By Nasal Cannula (02/15/25 09:51) Stat Ekg For Chest Pain (02/15/25 09:51) Notify Md Of Changes From Base (02/15/25 09:51) Social Work Coordinator For 24 Hours (02/15/25 09:51) Emergency Dysrhythmia Protocol (02/15/25 09:51) Rhythm Strips Once Every Shift (02/15/25 09:51) Nitroglycerin Sublingual (Ntrostat Subli (02/15/25 10:00) Bipap/Cpap For Sleep Apnea (02/15/25 10:16) Vital Signs Date Time Temp Pulse Resp B/P (MAP) Pulse Ox O2 Delivery O2 Flow Rate FiO2 02/15/25 10:12 98.0 88 20 134/89 98 2.0 28 98.0 02/15/25 08:30 98 02/15/25 08:00 98.0 101 22 134/89 (104) 98 98.0 02/15/25 08:00 Nasal Cannula* 2 28 02/15/25 06:00 97 19 119/89 (99) 98 02/15/25 04:00 83 22 116/82 (93) 97 Assessment/Plan Assessment/Plan Assessment # acute hypoxic respiratory failure due to acute pulmonary embolism On 2 L of oxygen, nasal cannula Albuterol and ipratropium p.r.n. # acute pulmonary embolism -elevated tropes and BNP -echo ordered to evaluate for right heart strain -cardiology on board -heparin drip # right-sided heart failure due to acute pulmonary embolism//left-sided heart failure # HFrEF, ?exacerbation -IV Lasix -echo ordered -last echo in December 24% ejection fraction -continue guideline directed medical therapy # COPD, questionable exacerbation -albuterol/ipratropium # coronary artery disease status post PCI recently three months ago -continue DAPT Continue statins # methamphetamine use disorder # cannabis use disorder -UDS positive for methamphetamine and cannabis Counseling for cessation # hypertensive heart disease -continue lisinopril # DVT prophylaxis -heparin drip Code status discussed with the patient for greater than 21 minutes, full code Case discussed with Dr. Martino Plan discussed with: Patient My Orders Orders - DAVID BARBOZA RESIDENT Procedure Category Date Status Time Ct Angio Chest CT 02/15/25 Taken Contrast 09:51 Echo 2d Mode Cardiac US 02/15/25 Logged DOP 09:51 B-Type Natriuretic LAB 02/15/25 Logged Peptide 09:51 Albuterol Medneb PHA 02/15/25 In Process (Ventolin Medneb) 10:00 Ipratropium Medneb PHA 02/15/25 In Process (Atrovent Medneb) 10:00 Admit ADMIT 02/15/25 Transmitted 09:51 Morphine Sulfate PHA 02/15/25 In Process Injection 10:00 Oxygen By Nasal RT 02/15/25 Transmitted Cannula 09:51 Stat Ekg For Chest MAYRA 02/15/25 In Process Pain 09:51 Notify Of Changes MAYRA 02/15/25 In Process From Base 09:51 Social Work Coordinator For MAYRA 02/15/25 In Process 24 Hours 09:51 Emergency Dysrhythmia MAYRA 02/15/25 In Process Protocol 09:51 Rhythm Strips Once MAYRA 02/15/25 In Process Every Shift 09:51 Nitroglycerin PHA 02/15/25 In Process Sublingual (Ntrostat 10:00 Bipap/Cpap For Sleep RT 02/15/25 Logged Apnea 10:16 Visit Coding STANDARD RES Billing Provider: DEMAR MARTINO MD Date of Service if different f: Feb 15, 2025 Common Visit Codes: 58011-[id number] INP/OBS CARE (HIGH) Secondary Visit Codes: [id number] CARE PLAN 30 MINUTES DAVID BARBOZA RESIDENT Feb 15, 2025 10:47
--- NOTE | 2025-02-15 11:35 | DVH ---
CTA Chest with intravenous contrast INDICATION: sob COMPARISON: Chest radiographs performed on 02/14/2025. TECHNIQUE: Multidetector spiral CTA of the chest was performed of the chest with 95 cc of omnipaque 350 intravenous contrast. PULMONARY ANGIOGRAPHY PROTOCOL was utilized using a bolus-tracking technique centered on the main pulmonary artery. Coronal and sagittal multiplanar and MIP reformats were performed. Radiation Dose : 1. Chest: CTDI volume is 41.44 mGy. Dose-length product is 504.7 mGy*cm The dose indicators for CT are the volume Computed Tomography (CT) Dose Index (CTDIvol) and the Dose Length Product (DLP), and are measured in units of mGy and mGy-cm, respectively. These indicators are not patient dose, but values generated from the CT scanner acquisition factors. The report includes radiation exposure data for exposures received during this examination. FINDINGS: Pulmonary artery: There is a filling defect in right lower lobe segmental branches consistent with pulmonary emboli. Lower neck: Normal thyroid. Lungs: Bilateral lower lobe atelectasis noted. Central airways: Patent. Pleura: No pneumothorax. Small right and trace left pleural effusion. Heart/Vascular Structures: Heart is enlarged. RV to LV ratio measures 0.8. No pericardial effusion. Thoracic aorta is normal in caliber. No aneurysm or dissection. Lymph Nodes: No mediastinal or hilar lymphadenopathy. Esophagus:Grossly unremarkable. Musculoskeletal: Old bilateral rib fractures. No acute fracture. Body wall: Unremarkable. Upper abdomen: Gallbladder edema. Mild mesenteric edema in the upper abdomen. Reflux of contrast into the hepatic veins. IMPRESSION: 1. Right lower lobe segmental pulmonary emboli. No CT evidence of right heart strain. 2. Small right and trace left pleural effusion. 3. Cardiomegaly. Reflux of contrast into the hepatic veins suggesting right heart insufficiency. 4. Gallbladder wall edema.
[2025-02-15] MEDS: CLOPIDOGREL BISULFATE 75 MG TAB PO ONE (11:38)
[2025-02-15] MEDS: FUROSEMIDE 40 MG/4 ML VIAL IV ONE (11:38)
[2025-02-15] MEDS: ATORVASTATIN 20 MG TAB PO ONE (11:39)
[2025-02-15 11:45] LABS: Hematocrit 40.5 % (41.0-53.0); Hemoglobin 13.2 g/dL (13.5-17.5); Mean Corpuscular Hemoglobin 29.1 pg (28.0-32.0); Mean Corpuscular Volume 89.0 fL (80.0-100.0); Nucleated Red Blood Cells % 0.0 %
[2025-02-15 12:00] LABS: INR 1.28 (0.9-1.15); Partial Thromboplastin Time 29.7 SEC (24.5-34.5); Prothrombin Time 13.2 sec (9.3-11.8)
[2025-02-15 12:16] LABS: Alanine Aminotransferase 36 U/L (7-40); Albumin 4.1 g/dL (3.2-4.8); Alkaline Phosphatase 102 U/L (46-116); Anion Gap 10 (5-15); BUN/Creatinine Ratio 17.6 (10.0-20.0); Blood Urea Nitrogen 16 mg/dL (9-23); Calcium 9.1 mg/dL (8.7-10.4); Carbon Dioxide 23 mmol/L (20-31); Chloride 104 mmol/L (98-107); Magnesium 2.0 mg/dL (1.6-2.6); Potassium 4.1 mmol/L (3.5-5.1); Sodium 137 mmol/L (136-145); Total Protein 7.3 g/dL (5.7-8.2)
[2025-02-15 12:16] LABS: Amphetamine Screen, Urine Pos (NEGATIVE); Barbiturate Scree,Urine Neg (NEGATIVE); Benzodiazephine Screen, Urine Pos (NEGATIVE); Cannabinoid Screen, Urine Pos (NEGATIVE); Cocaine Screen, Urine Neg (NEGATIVE); Opiate Scree,Urine Neg (NEGATIVE); Phencyclidine Screen, Urine Neg (NEGATIVE)
[2025-02-15 12:17] LABS: Bilirubin, Total 0.9 mg/dL (0.2-1.0); Glucose 129 mg/dL (74-106)
[2025-02-15] MEDS: HEPARIN SODIUM (PORCINE) 5000 UNITS/ML 1ML VIAL IV ONE (12:20)
[2025-02-15] MEDS: HEPARIN DRIP/D5W 100UNITS/ML 250 ML IV SCH ×2 (12:24→21:50)
[2025-02-15 13:11] LABS: COVID19 ANTIGEN SOFIA FIA NEGATIVE (NEGATIVE)
[2025-02-15] MEDS ORDERED: EMPA1TAB PO (14:22)
[2025-02-15] MEDS ORDERED: LISI2.5T47 PO (14:22)
[2025-02-15] MEDS ORDERED: AMLO1TAB22 PO (14:22)
[2025-02-15] MEDS ORDERED: DEXTROSE (50%) 50ML SYRG IV PRN (14:30)
[2025-02-15 14:43] LABS: Triglycerides 59 mg/dL (< 150)
[2025-02-15 14:45] LABS: Cholesterol 68 mg/dL (< 200)
[2025-02-15 14:46] LABS: HDL Cholesterol 24 mg/dL (40-59)
[2025-02-15 18:23] VITALS: BP 128/91; PULSE 88; RESP 18; TEMP 97.8; O2SAT 98
[2025-02-15 18:33] LABS: Urine Protein, UAD 1+ (Negative)
[2025-02-15] MEDS: ACCU-CHEK COMFORT CURVE STRIP VI SCH (18:48)
[2025-02-15] MEDS: FUROSEMIDE 40 MG/4 ML VIAL IV SCH (18:48)
[2025-02-15] MEDS: InsuLIN REG 1unit/0.01ml Soln (100units/ml) SC SCH (18:49)
[2025-02-15 20:00] VITALS: PULSE 102; RESP 18
[2025-02-15 20:28] LABS: INR 1.26 (0.9-1.15); Prothrombin Time 13.1 sec (9.3-11.8)
[2025-02-15 20:45] LABS: Partial Thromboplastin Time 112.3 SEC (24.5-34.5)
[2025-02-15 21:00] VITALS: BP 119/83; PULSE 98; RESP 19; TEMP 98.4; O2SAT 99
[2025-02-16] VITALS (15 sets, daily range): BP systolic 98–119; BP diastolic 69–89; PULSE 59–97; RESP 17–24; TEMP 96.8–98.2; O2SAT 20–100
[2025-02-16 04:10] LABS: Chloride 101 mmol/L (98-107); Potassium 4.1 mmol/L (3.5-5.1); Sodium 137 mmol/L (136-145)
[2025-02-16 04:11] LABS: Anion Gap 9 (5-15); Calcium 8.8 mg/dL (8.7-10.4); Carbon Dioxide 27 mmol/L (20-31)
[2025-02-16 04:16] LABS: BUN/Creatinine Ratio 23.9 (10.0-20.0); Blood Urea Nitrogen 21 mg/dL (9-23); Glucose 101 mg/dL (74-106)
[2025-02-16 04:17] LABS: Magnesium 1.8 mg/dL (1.6-2.6)
[2025-02-16 04:18] LABS: Hematocrit 37.5 % (41.0-53.0); Hemoglobin 12.3 g/dL (13.5-17.5); Mean Corpuscular Hemoglobin 28.4 pg (28.0-32.0); Mean Corpuscular Volume 86.9 fL (80.0-100.0); Nucleated Red Blood Cells % 0.1 %
[2025-02-16 04:20] LABS: INR 1.3 (0.9-1.15); Partial Thromboplastin Time 65.5 SEC (24.5-34.5); Prothrombin Time 13.4 sec (9.3-11.8)
--- NOTE | 2025-02-16 08:06 | DVH ---
INDICATION: sob TECHNIQUE: Single AP view of the chest WID: COMPARISON: XY CHEST XRAY 1 VIEW on DOS: 02/14/25, XY CHEST PORTABLE on DOS: 12/31/24, XY CHEST XRAY 1 VIEW on DOS: 12/29/24, XY CHEST XRAY 1 VIEW on DOS: 12/12/24, XY CHEST PORTABLE on DOS: 12/10/24, XY CHEST PORTABLE on DOS: 12/31/24 FINDINGS: Lines and tubes: None Chest: Mild cardiomegaly without pulmonary vascular congestion. Calcified plaque projects over the aortic arch. No pleural effusion or pneumothorax. Mild superimposed opacities in the right upper lung. Mild interstitial opacities are seen in the lungs The osseous structures are grossly intact. IMPRESSION: No interval change.
[2025-02-16] MEDS: IPRATROPIUM BROM 0.5 MG/2.5ML INH SOL NEB PRN ×2 (08:10→12:48)
[2025-02-16] MEDS: ALBUTEROL SULF 2.5 MG/0.5ML(0.5%) NEB SOLN NEB PRN ×2 (08:10→12:48)
[2025-02-16 08:33] LABS: Base Excess 2.8 mmol/L (-2.0-3.0)
--- NOTE | 2025-02-16 08:45 | DVHSR ---
APPROVED REPORT EXAM: LIMITED Two-dimensional echocardiogram. Blood Pressure: 139/92 mmHg INDICATION SOB RISK FACTORS Height: 5', Weight: 179 DIMENSIONS LVDd 7.1 (3.8-5.7cm) LA (2D) 5.2 (1.9-4.0cm) Aortic Root (2.0-3.7cm) LVDs 6.8 (2.5-4.0cm) LA (MM) (1.9-4.0cm) Aortic Cusp Exc (1.5-2.0cm) EF (%) 9.0 (55-70%) Rt. Atrium 5.3 (1.9-4.0cm) Asc. Aorta cm IVSd 1.1 (0.7-1.1cm) RV (D) (1.8-2.4cm) PWd 0.9 (0.7-1.1cm) Mitral Valve Mitral Mitral Stenosis E/A ratio 0.0 2D MVA cm2 Tricuspid Valve TR Velocity 3.20m/s RVSP 50mmHg Other Information Quality : Limited Rhythm : Conclusion lvef 10% severe dilated LV RV dysfunction noted left atrium enlarged moderate to severe tricuspi regurg aortic sclerosis, no gradient across it performed
--- NOTE | 2025-02-16 09:58 | DVHINCON2 ---
LORETTA FRIAS [facility] 02/16/25 0958: Date Seen: Feb 16, 2025 Referring Physician MD Dani Reason for Consultation Acute PE, evaluate for mechanical thrombectomy History of Present Illness This is a 69-year-old man who presented to the emergency room via EMS with a chief complaint of panic attacks. The patient reports increased anxiety associated with intermittent shortness of breath, tachypnea, and PND for approximately one week. A 12 lead electrocardiogram revealed a sinus rhythm without evidence of acute ST-T wave segment changes. He underwent a CT angiogram revealing a right lower lobe segmental pulmonary emboli with no evidence of right heart strain. He is currently on a heparin drip per pharmacy protocol. Denies any chest pain, palpitations, diaphoresis, dizziness, or syncopal events. Significant medical history includes severe coronary artery status with a cardiopulmonary arrest status post Impella assisted PTCA and stenting of the proximal LAD/diagonal arteries with stage procedure of the RCA x2 MARIE on December 2024 with current DAPT and lipid-lowering agent, ischemic cardiomyopathy with LVEF of 10%, nonsustained ventricular tachycardia, hyper tension, prediabetes, cigarette use including a history of 50 pack years, and methamphetamine/cannabinoid dependence with last use two days ago. Past Medical History Past medical history reviewed. No other significant than mentioned above. Past Surgical History Impella device and cystic PCI of the LAD/diagonal with a staged procedure of the RCA x2 MARIE, 12/2024 Spinal surgery Family History: Patient reports no known family medical history. Family History Family history reviewed. Social History Denies the use of alcohol. Admits to active methamphetamine/cannabinoid use latest use two days ago. Admits to cigarette smoking, one pack every two days including 50 pack years. Allergies: Coded Allergies: NO KNOWN ALLERGIES (Unverified , 11/19/24) Home Meds Reported Medications Aspirin (Aspirin) 81 Mg Tab, 1 TAB PO DAILY for 60 Days, #60 02/15/25 Clopidogrel Bisulfate (Plavix) 75 Mg Tab, 1 TAB PO DAILY for 60 Days, #60 02/15/25 Amlodipine Besylate (Amlodipine Besylate) 5 Mg Tab, 1 TAB PO DAILY 02/15/25 Empagliflozin (Jardiance) 10 Mg Tab, 1 TAB PO DAILY 02/15/25 Lisinopril (Lisinopril) 2.5 Mg Tab, 1 TAB PO DAILY 02/15/25 Albuterol Sulfate (VENTOLIN MDI) 90 Mcg Ih, 90 MCG IN, INH 12/30/24 Temazepam (Temazepam) 15 Mg Cap, 15 MG PO, CAP 12/30/24 Atorvastatin Calcium (ATORVASTATIN CALCIUM) 40 Mg Tab, 1 TAB PO DAILY for 90 Days, #90 12/30/24 Home Meds Home medications reviewed. Current Medications Current Medications Medications (Trade) Dose Ordered Sig/Dona Route PRN Reason Start Time Stop Time Status Last Admin Albuterol (Ventolin Medneb) 2.5 mg Q4HPRN PRN NEB SHORTNESS OF BREATH 02/15/25 10:00 02/16/25 08:10 Ipratropium [place] (Atrovent Medneb) 0.5 mg Q4HPRN PRN NEB SHORTNESS OF BREATH 02/15/25 10:00 02/16/25 08:10 Morphine Sulfate 2 mg Q30M PRN IV FOR CHEST PAIN 02/15/25 10:00 Nitroglycerin (Ntrostat Sublingual) 0.4 mg Q5MINP PRN SL FOR CHEST PAIN 02/15/25 10:00 Lorazepam (Ativan Tablet) 0.5 mg Q12HP PRN PO ANXIETY 02/15/25 10:45 Aspirin 81 mg DAILY PO 02/16/25 10:00 Clopidogrel Bisulfate (Plavix) 75 mg DAILY PO 02/16/25 10:00 Atorvastatin Calcium (Lipitor) 80 mg HS PO 02/16/25 22:00 Heparin Sodium/ Dextrose 250 ml @ 15 mls/hr [id number] IV 02/15/25 11:45 02/15/25 21:03 DC 02/15/25 12:24 Diagnostic Test (Pha) (Accu-Chek Comfort Curve T) 1 strip Q6HR 02/15/25 18:00 02/16/25 05:21 Insulin Human Regular (InsuLIN R) Q6HR SC 02/15/25 18:00 Dextrose 50 ml UD PRN IV Blood Sugar LESS THAN 60 02/15/25 14:30 Empaglifozin (Jardiance) 10 mg DAILY PO 02/16/25 10:00 Lisinopril (Zestril Tablet) 2.5 mg DAILY PO 02/16/25 10:00 Furosemide (Lasix Injection) 40 mg BIDD IV 02/15/25 18:00 02/16/25 05:21 Heparin Sodium/ Dextrose 250 ml @ 12 mls/hr [id number] IV 02/15/25 21:47 02/16/25 04:20 Review of Systems Constitutional: No symptom reported Ears, Nose, & Throat: No symptom reported Eyes: No symptom reported Neurological: No symptoms reported Pulmonary/Respiratory: SOB, tachypnea, PND Cardiovascular: No symptom reported Gastrointestinal: No symptom reported Genitourinary: No symptom reported Musculoskeletal: No symptom reported Skin: No symptom reported Psychiatric: No symptom reported Endocrine: No symptom reported Hemotologic/Lymphatic: No symptom reported Vital Signs Vital Signs Date Time Temp Pulse Resp B/P (MAP) Pulse Ox O2 Delivery O2 Flow Rate FiO2 02/16/25 08:16 85 20 98 02/16/25 08:10 Nasal Cannula 2.0 02/16/25 08:10 28 02/16/25 05:21 113/78 02/16/25 05:00 97.5 97.5 Physical Exam General Appearance: Cooperative. Well developed. Well nourished. In no acute distress Head Exam: Normal inspection Neck Exam: Normal inspection. Non-tender. Normal alignment Pulmonary/Respiratory: Chest non-tender. Bibasilar crackles bilateral breath sounds Cardiovascular/Chest: Regular rate and rhythm. S1, S2. Sinus rhythm with a LVH. No murmurs. No JVD. Peripheral Pulses: 2+ Radial (R). 2+ Radial (L). 2+ Pedal (R). 2+ Pedal (L) Abdominal Exam: Normal bowel sounds Ankle Exam: Negative ankle edema Lower extremities: Positive lower extremity pitting edema, 1+ Neuro/Mental Status: A&O x4. Coherent Thoughts/Psych: Normal thought pattern. Anxious Appearance: In no acute distress Skin Exam: Normal inspection. Normal color. Warm. Dry Labs/Diagnostic Data Labs Test 02/16/25 09:30 02/16/25 08:17 02/16/25 05:03 02/16/25 03:30 Range/Units Blood Gas Specimen Type Arterial Blood Gas Sample Site Right radial Blood Gas Patient Temperature 37.0 Arterial Blood Date Drawn [id number] Arterial Blood pH 7.443 7.350-7.450 Arterial Blood Partial Pressure CO2 40.6 35.0-48.0 mmHg Arterial Blood Partial Pressure O2 99.7 83.0-108.0 mmHg Arterial Blood HCO3 27.1 21.0-28.0 mmol/L Arterial Blood Oxygen Saturation 97.4 94.0-98.0 % Arterial Blood Base Excess 2.8 -2.0-3.0 mmol/L Arterial Blood Oxyhemoglobin 95.8 94.0-98.0 % Arterial Blood Carboxyhemoglobin 1.2 0.5-1.5 % Arterial Blood Methemoglobin 0.4 0.0-1.5 % Arterial Blood Deoxyhemoglobin 2.6 0.0-5.0 % Darci Test Yes Blood Gas Total Hemoglobin 13.50 13.5-17.5 g/dL Blood Gas Modality Nasal cannula FiO2 % 28.0 POC Glucose 125 H 70-106 mg/dl White Blood Count 8.2 4.4-10.8 10^3/uL Red Blood Count 4.32 L 4.5-5.90 10^6/uL Hemoglobin 12.3 L 13.5-17.5 g/dL Hematocrit 37.5 L 41.0-53.0 % Mean Corpuscular Volume 86.9 80.0-100.0 fL Mean Corpuscular Hemoglobin 28.4 28.0-32.0 pg Mean Corpuscular Hemoglobin Concent 32.7 32.0-36.0 g/dL Red Cell Distribution Width 15.8 H 11.8-14.3 % Platelet Count 193 140-450 10^3/uL Mean Platelet Volume 8.9 6.9-10.8 fL Neutrophils (%) (Auto) 60.2 37.0-80.0 % Lymphocytes (%) (Auto) 26.0 10.0-50.0 % Monocytes (%) (Auto) 11.0 0.0-12.0 % Eosinophils (%) (Auto) 2.6 0.0-7.0 % Basophils (%) (Auto) 0.2 0.0-2.0 % Neutrophils # (Auto) 5.0 1.6-8.6 10 ^3/uL Lymphocytes # (Auto) 2.1 0.4-5.4 10 ^3/uL Monocytes # (Auto) 0.9 0-1.3 10 ^3/uL Eosinophils # (Auto) 0.2 0-0.8 10 ^3/uL Basophils # (Auto) 0 0-0.2 10 ^3/uL Nucleated Red Blood Cells 0.1 % Sodium Level 137 136-145 mmol/L Potassium Level 4.1 3.5-5.1 mmol/L Chloride Level 101 98-107 mmol/L Carbon Dioxide Level 27 20-31 mmol/L Anion Gap 9 5-15 Blood Urea Nitrogen 21 9-23 mg/dL Creatinine 0.88 0.700-1.30 mg/dL Glomerular Filtration Rate Calc 94 >90 mL/min BUN/Creatinine Ratio 23.9 H 10.0-20.0 Serum Glucose 101 74-106 mg/dL Calcium Level 8.8 8.7-10.4 mg/dL Magnesium Level 1.8 1.6-2.6 mg/dL Test 02/15/25 14:15 02/15/25 11:05 02/15/25 11:00 Range/Units Troponin I High Sensitivity 915 *H </=54 ng/L Urine Color Yellow Yellow Urine Clarity Clear Clear Urine pH 5.5 5.0-9.0 Urine Specific Roll 1.030 1.001-1.035 Urine Protein 1+ H Negative Urine Ketones Negative Negative Urine Blood Negative Negative /uL Urine Nitrite Negative Negative Urine Bilirubin Negative Negative Urine Urobilinogen Normal Negative mg/dL Urine Leukocyte Esterase Negative Negative /uL Urine RBC 1 0 - 3 /hpf Urine Microscopic WBC 1 0-3 /HPF Urine Squamous Epithelial Cells None seen <5 /hpf Urine Bacteria None seen None Seen /hpf Urine Mucus Few None Seen Urine Glucose 4+ H Normal mg/dL Urine Opiates Screen Neg NEGATIVE Urine Fentanyl Screen Neg NEGATIVE Urine Barbiturates Screen Neg NEGATIVE Urine Phencyclidine Screen Neg NEGATIVE Urine Amphetamines Screen Pos NEGATIVE Urine Benzodiazepines Screen Pos NEGATIVE Urine Cocaine Screen Neg NEGATIVE Urine Cannabinoids Screen Pos NEGATIVE D-Dimer, Quantitative 0.96 H 0.0-0.49 mg/L FEU Hemoglobin A1c 5.7 <5.7 % A1C Total Bilirubin 0.9 0.2-1.0 mg/dL Aspartate Amino Transferase (AST) 43 H 13-40 U/L Alanine Aminotransferase (ALT) 36 7-40 U/L Alkaline Phosphatase 102 46-116 U/L B-Type Natriuretic Peptide 2466.64 0-100 pg/mL Total Protein 7.3 5.7-8.2 g/dL Albumin 4.1 3.2-4.8 g/dL Triglycerides Level 59 < 150 mg/dL Cholesterol Level 68 < 200 mg/dL LDL Cholesterol 35 < 100 mg/dL HDL Cholesterol 24 L 40-59 mg/dL Influenza Type A Antigen Negative Negative Influenza Type B Antigen Negative Negative SARS-CoV-2 Antigen (Rapid) Negative NEGATIVE Assessment NSTEMI in the setting of acute PE CAD status post cardiopulmonary arrest with Impella device assisted PCI of the LAD/diagonal & stage procedure of the RCA on 12/2024 (on DAPT/statin) Acute chronic decompensated HFrEF, NYHA class IV Ischemic cardiomyopathy with LVEF of 10% Active methamphetamine/cannabinoid intoxication Medical noncompliance Plan/Recommendation (Dr. Chin) Case discussed in full detail with Dr. Chin. No need for interventional pulmonary thrombectomy at this time given clinical stability, location of PE, ABG results, and TTE images which were reviewed with no concerns for RV strain. Continue with medical management including protocol with DOAC therapy with Eliquis 10 mg bid for one week followed by 5 mg for the remaining as well as plavix therapy and lipid-lowering agent given recent PCIs with multiple stents placed. Continue full GDMT for CHF and uptitrate as tolerated. Continue preload and afterload reduction (not taking lasix at home), strict I&Os, daily weight, fluid restrictions, and 2-gram Na diet. After three months of full GDMT for CHF profound on LV function, the patient may be a candidate for a refill for ICD implantation. The patient denies following up in the outpatient setting with a primary automotive product engineer. Strongly advised on drug abuse/nicotine cessation and medical compliance. There is no further cardiac work-up indicated at this time. Kindly call if in need of further recommendations. Thank you for allowing us to participate in this patient's care. Critical care time 45 minutes. This medical document was created using an electronic medical record system with voice recognition software and computerized dictation system. Although this document has been carefully reviewed, there might still be some phonetic and typographical errors. Occasional wrong-word or ``sound-alike substitutions may have occurred due to the inherent limitations of voice recognition software. These areas are purely typographical due to imperfections of the software programs and do not reflect any compromise in the patient's medical care. Please read the chart carefully and recognize, using context, where these substitutions have occurred. Plan discussed with: Patient, Other NYHA Physical activity limitations: Class4(Severe)discomfort (w any activit,symptoms at rest) Date of Service: Feb 16, 2025 Billing Provider: LORETTA FRIAS Cardiology Common Codes: [id number] CARE 30-74 MIN BETO CHIN MD 02/16/25 1638: Family History: Patient reports no known family medical history. Allergies: Coded Allergies: NO KNOWN ALLERGIES (Unverified , 11/19/24) Home Meds Reported Medications Aspirin (Aspirin) 81 Mg Tab, 1 TAB PO DAILY for 60 Days, #60 02/15/25 Clopidogrel Bisulfate (Plavix) 75 Mg Tab, 1 TAB PO DAILY for 60 Days, #60 02/15/25 Amlodipine Besylate (Amlodipine Besylate) 5 Mg Tab, 1 TAB PO DAILY 02/15/25 Empagliflozin (Jardiance) 10 Mg Tab, 1 TAB PO DAILY 02/15/25 Lisinopril (Lisinopril) 2.5 Mg Tab, 1 TAB PO DAILY 02/15/25 Albuterol Sulfate (VENTOLIN MDI) 90 Mcg Ih, 90 MCG IN, INH 12/30/24 Temazepam (Temazepam) 15 Mg Cap, 15 MG PO, CAP 12/30/24 Atorvastatin Calcium (ATORVASTATIN CALCIUM) 40 Mg Tab, 1 TAB PO DAILY for 90 Days, #90 12/30/24 Plan/Recommendation agree with CHANGE CONTROL ANALYST assessment and plan cta reviewed his PE is quite small his CHF is very bad, recent PCI but EF still down needs lasix, metolazone and CHF managemetn dc asa, plavix and doac loading dose Plan discussed with: Patient LORETTA FRIAS Feb 16, 2025 09:58 BETO CHIN MD Feb 16, 2025 16:38
[2025-02-16 10:08] LABS: INR 1.25 (0.9-1.15); Partial Thromboplastin Time 64.4 SEC (24.5-34.5); Prothrombin Time 13.0 sec (9.3-11.8)
[2025-02-16] MEDS: LORazepam 0.5 MG TAB PO PRN (10:52)
[2025-02-16] MEDS: LISINOPRIL 5 MG TAB PO SCH (10:54)
[2025-02-16] MEDS: SPIRONOLACTONE 25 MG TAB PO SCH (10:55)
[2025-02-16] MEDS: APIXABAN 5 MG TAB PO SCH (10:55)
[2025-02-16] MEDS: METOPROLOL TARTRATE 25 MG TAB PO SCH (11:02)
[2025-02-16] MEDS: CLOPIDOGREL BISULFATE 75 MG TAB PO SCH (11:03)
[2025-02-16] MEDS: EMPAGLIFLOZIN 10 MG TAB PO SCH (11:04)
[2025-02-16] MEDS: MAGNESIUM SULFATE 1GM/100ML 100 ML IV ONE (11:05)
--- NOTE | 2025-02-16 11:48 | DVH ---
Bilateral lower extremity venous duplex Clinical History: PE rule out DVT Comparison: US BILAT LOWER DVT on DOS: 11/24/24 Technique: Duplex Doppler evaluation of the deep venous systems of both lower extremities from the common femoral veins to the popliteal veins including color Doppler and spectral/pulsed waveform analysis was performed. Findings: RIGHT SIDE: The common femoral vein demonstrates appropriate compressibility and waveform variability. There is compressibility/patency of the great saphenous vein at the proximal thigh. The femoral vein demonstrates appropriate compressibility and waveform variability. The deep femoral vein demonstrates appropriate compressibility and waveform variability. The popliteal vein demonstrates appropriate compressibility and waveform variability. There is normal compressibility at the tibioperoneal trunk. LEFT SIDE: The common femoral vein demonstrates appropriate compressibility and waveform variability. There is compressibility/patency of the great saphenous vein at the proximal thigh. The femoral vein demonstrates appropriate compressibility and waveform variability. The deep femoral vein demonstrates appropriate compressibility and waveform variability. The popliteal vein demonstrates appropriate compressibility and waveform variability. There is normal compressibility at the tibioperoneal trunk. Impression: 1. No right or left femoropopliteal venous thrombosis.
--- NOTE | 2025-02-16 15:46 | DVHPNRES ---
Progress Note Date Seen: Feb 16, 2025 Resident Creating Document: DONI CAMACHO RESIDENT Medical Necessity Reason Pt with a Central, PICC or Fol: No Subjective Review of Systems Patient is a 72-year-old male with past medical history of CAD status post PCI, anxiety, polysubstance abuse disorder, came with chief complaints of shortness of breath, palpitations, feeling anxious since 3 months which has worsened yesterday. Patient does not use home oxygen and is currently on 2 L oxygen. Patient states that every time he tries to sleep he has difficulty breathing and suddenly wakes up with palpitations. Patient feels tired and is dosing of while talking. Patient mentions he has been inactive after the procedure and has not been walking and is mostly on his bed. Patient's last use of methamphetamine was 2 days ago. Patient denies any chest pain, cough, nausea, vomiting, fever, chills, abdominal pain. Past surgical history: PCI 3 months ago Family history: Denies any heart diseases personal history: Active smoker, denies alcohol use, uses amphetamine, marijuana lives with: family Medication history: Aspirin, Plavix, Jardiance, statin, amlodipine, losartan, Trelegy 02/16/25: Patient seen at bedside. Patient states he has mild shortness of breath but denies any chest pain, nausea, vomiting, diarrhea, fever, chills. Patient does feel anxious and has palpitations after sleeping. CT angio showed segmental PE in the right lower lobe. Objective vital signs Vital Sign Date Time Temp Pulse Resp B/P (MAP) Pulse Ox O2 Delivery O2 Flow Rate FiO2 02/16/25 13:00 97.4 77 20 106/89 (95) 20 97.4 02/16/25 12:48 Nasal Cannula 2.0 02/16/25 12:48 28 Total Intake and Output 02/15/25 02/15/25 02/16/25 15:00 23:00 07:00 Intake Total 30 ml 45 ml 600 ml Output Total 800 ml 500 ml 1300 ml Balance -770 ml -455 ml -700 ml medications Current Medications Medications Dose Ordered Sig/Dona Route Start Time Stop Time Status Last Admin Dose Admin Morphine Sulfate 2 mg Q30M PRN IV 02/15/25 10:00 Nitroglycerin 0.4 mg Q5MINP PRN SL 02/15/25 10:00 Lorazepam 0.5 mg Q12HP PRN PO 02/15/25 10:45 02/16/25 10:52 0.5 MG Clopidogrel Bisulfate 75 mg DAILY PO 02/16/25 10:00 02/16/25 11:03 75 MG Atorvastatin Calcium 80 mg HS PO 02/16/25 22:00 Empaglifozin 10 mg DAILY PO 02/16/25 10:00 02/16/25 11:04 10 MG Lisinopril 2.5 mg DAILY PO 02/16/25 10:00 02/16/25 10:54 2.5 MG Apixaban 10 mg BID PO 02/16/25 10:00 02/23/25 09:59 02/16/25 10:55 10 MG Apixaban 5 mg BID PO 02/23/25 10:00 Metoprolol Tartrate 12.5 mg BID PO 02/16/25 10:00 02/16/25 11:02 12.5 MG Spironolactone 12.5 mg DAILY PO 02/16/25 10:00 02/16/25 10:55 12.5 MG Furosemide 60 mg BIDD IV 02/16/25 18:00 Albuterol 2.5 mg Q6HPRN PRN NEB 02/16/25 18:00 02/16/25 12:48 2.5 MG Ipratropium [place] 0.5 mg Q6HPRN PRN NEB 02/16/25 18:00 02/16/25 12:48 0.5 MG Examination Patient sitting in chair' General: Patient alert and oriented in person, place and time. Patient following commands. HEENT: Normocephalic, atraumatic, moist mucous membranes Respiratory/pulmonary: Bilateral crackles heard on auscultation Cardiovascular: Normal heart sounds S1 and S2 with no associated murmurs Abdomen: Abdomen nondistended, there is no pain to palpation in any of the abdominal quadrants, no palpable masses. Extremities: There is no peripheral edema present at the lower extremities. Peripheral Pulses: 3+ Radial (R). 3+ Radial (L). 3+ Dorsalis pedis (R). 3+ Dorsalis pedis(L) Skin: No rashes or pruritus, there is no sacral edema present at this time. Neurological: Intact cranial nerves with no focal neurologic deficits laboratory and microbiology Laboratory Tests 02/16/25 03:30 Test 02/16/25 03:30 Range/Units Serum Glucose 101 74-106 mg/dL Microbiology Date/Time Source Procedure Growth Status 02/15/25 11:38 Nose MRSA Screen - Final Complete Problem List/Assessment/Plan Problem List/Assessment/Plan # Acute hypoxic respiratory failure due to acute pulmonary embolism # Acute pulmonary embolism # right-sided heart failure due to acute pulmonary embolism//left-sided heart failure # Acute chronic decompensated HFrEF, NYHA class IV # NSTEMI in the setting of acute PE # CAD Status post PCI # COPD # cardiomegaly # bilateral pleural effusions # ruled out DVT -On 2 L of oxygen, nasal cannula -Albuterol and ipratropium p.r.n. -elevated tropes and BNP - CT angio Right lower lobe segmental pulmonary emboli. No CT evidence of right heart strain. Small right and trace left pleural effusion. Cardiomegaly. - DVT scan showed No right or left femoropopliteal venous thrombosis. -echo ordered lvef 10%, severe dilated LV, RV dysfunction noted , left atrium enlarged, moderate to severe tricuspi regurg , aortic sclerosis, no gradient across it performed -cardiology on board - strict I&O - statin - heparin drip stopped - started Eliquis 10 mg p.o. b.i.d. -I V Lasix 60 mg b.i.d. -continue guideline directed medical therapy # nicotine use disorder # methamphetamine use disorder # cannabis use disorder # medical noncompliance -UDS positive for methamphetamine and cannabis - patient counseled on cessation of methamphetamine, marijuana, smoking for 18 minutes # hypertensive heart disease -continue lisinopril PPI prophylaxis: Protonix DVT prophylaxis: Eliquis Goals of care addressed with the patient for more than 27 minutes: Full code status Case discussed with Dr. Garcia , patient and nurse Plan discussed with: Patient Visit Coding STANDARD RES Billing Provider: MELY GARCIA MD Date of Service if different f: Feb 16, 2025 Common Visit Codes: [id number] INP/OBS CARE(HIGH) DONI CAMACHO RESIDENT Feb 16, 2025 15:45
[2025-02-16] MEDS: FUROSEMIDE 40 MG/4 ML VIAL IV SCH (18:24)
[2025-02-16] MEDS: ATORVASTATIN 20 MG TAB PO SCH (22:51)
[2025-02-17] VITALS (14 sets, daily range): BP systolic 96–117; BP diastolic 59–79; PULSE 52–96; RESP 18–23; TEMP 97–98.6; O2SAT 93–100
[2025-02-17] MEDS: PANTOPRAZOLE 40 MG TAB PO SCH (05:11)
[2025-02-17 06:15] LABS: Anion Gap 8 (5-15); Carbon Dioxide 28 mmol/L (20-31); Chloride 101 mmol/L (98-107); Sodium 137 mmol/L (136-145)
[2025-02-17 06:16] LABS: Calcium 9.2 mg/dL (8.7-10.4)
[2025-02-17 06:21] LABS: BUN/Creatinine Ratio 23.6 (10.0-20.0); Blood Urea Nitrogen 21 mg/dL (9-23)
[2025-02-17 06:23] LABS: Glucose 117 mg/dL (74-106); Potassium 3.4 mmol/L (3.5-5.1)
[2025-02-17] MEDS: POTASSIUM EFFERVESENT TAB 25 MEQ PO ONE (08:29)
[2025-02-17] MEDS: ONDANSETRON HCL 4 MG/2 ML VIAL IV PRN (08:34)
--- NOTE | 2025-02-17 16:09 | DVHPNRES ---
Progress Note Date Seen: Feb 17, 2025 Resident Creating Document: DONI CAMACHO RESIDENT Medical Necessity Reason Pt with a Central, PICC or Fol: No Subjective Review of Systems Patient is a 72-year-old male with past medical history of CAD status post PCI, anxiety, polysubstance abuse disorder, came with chief complaints of shortness of breath, palpitations, feeling anxious since 3 months which has worsened yesterday. Patient does not use home oxygen and is currently on 2 L oxygen. Patient states that every time he tries to sleep he has difficulty breathing and suddenly wakes up with palpitations. Patient feels tired and is dosing of while talking. Patient mentions he has been inactive after the procedure and has not been walking and is mostly on his bed. Patient's last use of methamphetamine was 2 days ago. Patient denies any chest pain, cough, nausea, vomiting, fever, chills, abdominal pain. Past surgical history: PCI 3 months ago Family history: Denies any heart diseases personal history: Active smoker, denies alcohol use, uses amphetamine, marijuana lives with: family Medication history: Aspirin, Plavix, Jardiance, statin, amlodipine, losartan, Trelegy 02/16/25: Patient seen at bedside. Patient states he has mild shortness of breath but denies any chest pain, nausea, vomiting, diarrhea, fever, chills. Patient does feel anxious and has palpitations after sleeping. CT angio showed segmental PE in the right lower lobe. : Patient seen at bedside. Patient today complains of nausea, inability to sleep. Patient does feel anxious and has palpitations after sleeping. patient has hypokalemia for which potassium was given. Objective vital signs Vital Sign Date Time Temp Pulse Resp B/P (MAP) Pulse Ox O2 Delivery O2 Flow Rate FiO2 02/17/25 13:00 97.0 75 18 105/66 (79) 93 97.0 02/17/25 10:58 Nasal Cannula* 2 28 Total Intake and Output 02/16/25 02/16/25 02/17/25 15:00 23:00 07:00 Intake Total 172 ml 480 ml 600 ml Output Total 400 ml 500 ml Balance 172 ml 80 ml 100 ml medications Current Medications Medications Dose Ordered Sig/Dona Route Start Time Stop Time Status Last Admin Dose Admin Morphine Sulfate 2 mg Q30M PRN IV 02/15/25 10:00 Nitroglycerin 0.4 mg Q5MINP PRN SL 02/15/25 10:00 Lorazepam 0.5 mg Q12HP PRN PO 02/15/25 10:45 02/17/25 10:31 0.5 MG Clopidogrel Bisulfate 75 mg DAILY PO 02/16/25 10:00 02/17/25 08:30 75 MG Atorvastatin Calcium 80 mg HS PO 02/16/25 22:00 02/16/25 22:51 80 MG Empaglifozin 10 mg DAILY PO 02/16/25 10:00 02/17/25 08:30 10 MG Lisinopril 2.5 mg DAILY PO 02/16/25 10:00 02/17/25 08:31 2.5 MG Apixaban 10 mg BID PO 02/16/25 10:00 02/23/25 09:59 02/17/25 08:30 10 MG Apixaban 5 mg BID PO 02/23/25 10:00 Metoprolol Tartrate 12.5 mg BID PO 02/16/25 10:00 02/17/25 08:31 12.5 MG Spironolactone 12.5 mg DAILY PO 02/16/25 10:00 02/17/25 08:30 12.5 MG Furosemide 60 mg BIDD IV 02/16/25 18:00 02/17/25 05:12 60 MG Albuterol 2.5 mg Q6HPRN PRN NEB 02/16/25 18:00 02/17/25 10:58 2.5 MG Ipratropium [place] 0.5 mg Q6HPRN PRN NEB 02/16/25 18:00 02/17/25 10:58 0.5 MG Pantoprazole Sodium 40 mg DAILY@0600 PO 02/17/25 06:00 02/17/25 05:11 40 MG Ondansetron HCl 4 mg Q6HPRN PRN IV 02/17/25 08:00 02/17/25 08:34 4 MG Examination General: Patient alert and oriented in person, place and time. Patient following commands. HEENT: Normocephalic, atraumatic, moist mucous membranes Respiratory/pulmonary: Bilateral crackles heard on auscultation Cardiovascular: Normal heart sounds S1 and S2 with no associated murmurs Abdomen: Abdomen nondistended, there is no pain to palpation in any of the abdominal quadrants, no palpable masses. Extremities: There is no peripheral edema present at the lower extremities. Peripheral Pulses: 3+ Radial (R). 3+ Radial (L). 3+ Dorsalis pedis (R). 3+ Dorsalis pedis(L) Skin: No rashes or pruritus, there is no sacral edema present at this time. Neurological: Intact cranial nerves with no focal neurologic deficits laboratory and microbiology Laboratory Tests 02/17/25 05:07 02/16/25 03:30 Test 02/17/25 05:07 Range/Units Serum Glucose 117 H 74-106 mg/dL Microbiology Date/Time Source Procedure Growth Status 02/15/25 11:38 Nose MRSA Screen - Final Complete Problem List/Assessment/Plan Problem List/Assessment/Plan # Acute hypoxic respiratory failure due to acute pulmonary embolism # Acute pulmonary embolism # right-sided heart failure due to acute pulmonary embolism//left-sided heart failure # Acute chronic decompensated HFrEF, NYHA class IV # NSTEMI in the setting of acute PE # CAD Status post PCI # COPD # cardiomegaly # bilateral pleural effusions # ruled out DVT -On 2 L of oxygen, nasal cannula -Albuterol and ipratropium p.r.n. -elevated tropes and BNP - CT angio Right lower lobe segmental pulmonary emboli. No CT evidence of right heart strain. Small right and trace left pleural effusion. Cardiomegaly. - DVT scan showed No right or left femoropopliteal venous thrombosis. -echo ordered lvef 10%, severe dilated LV, RV dysfunction noted , left atrium enlarged, moderate to severe tricuspi regurg , aortic sclerosis, no gradient across it performed -cardiology on board - strict I&O - statin - heparin drip stopped - started Eliquis 10 mg p.o. b.i.d. -IV Lasix 60 mg b.i.d. -continue guideline directed medical therapy # hypokalemia - replaced # nicotine use disorder # methamphetamine use disorder # cannabis use disorder # medical noncompliance -UDS positive for methamphetamine and cannabis - patient counseled on cessation of methamphetamine, marijuana, smoking for 18 minutes # hypertensive heart disease -continue lisinopril PPI prophylaxis: Protonix DVT prophylaxis: Eliquis Goals of care addressed with the patient for more than 27 minutes: Full code status Case discussed with Dr. Garcia , patient and nurse Plan discussed with: Patient My Orders My Orders Orders - DONI CAMACHO Procedure Category Date Status Time Ondansetron Hcl PHA 02/17/25 In Process (Ashok) 08:00 Visit Coding STANDARD RES Billing Provider: MELY GARCIA MD Date of Service if different f: Feb 17, 2025 Common Visit Codes: [id number] INP/OBS CARE(HIGH) DONI CAMACHO Feb 17, 2025 16:09
[2025-02-17 18:41] LABS: Potassium 4.8 mmol/L (3.5-5.1)
[2025-02-17 18:48] LABS: Magnesium 2.1 mg/dL (1.6-2.6)
[2025-02-18] VITALS (14 sets, daily range): BP systolic 95–118; BP diastolic 59–81; PULSE 40–89; RESP 18–24; TEMP 97.6–98.2; O2SAT 95–100
[2025-02-18 08:14] LABS: Chloride 99 mmol/L (98-107); Potassium 4.6 mmol/L (3.5-5.1)
[2025-02-18 08:15] LABS: Anion Gap 9 (5-15); Calcium 9.7 mg/dL (8.7-10.4); Carbon Dioxide 28 mmol/L (20-31)
[2025-02-18 08:16] LABS: Sodium 136 mmol/L (136-145)
[2025-02-18 08:20] LABS: BUN/Creatinine Ratio 15.5 (10.0-20.0); Blood Urea Nitrogen 22 mg/dL (9-23); Glucose 100 mg/dL (74-106)
[2025-02-18] MEDS ORDERED: MORPHINE SULFATE 4 MG/ML SYR/VIAL IV PRN (12:45)
[2025-02-18] MEDS: DOBUTamine 1000MCG/ML 250 ML IV SCH (15:15)
--- NOTE | 2025-02-18 17:58 | DVHPNRES ---
Progress Note Date Seen: Feb 18, 2025 Resident Creating Document: DONI CAMACHO RESIDENT Medical Necessity Reason Pt with a Central, PICC or Fol: No Subjective Review of Systems Patient is a 72-year-old male with past medical history of CAD status post PCI, anxiety, polysubstance abuse disorder, came with chief complaints of shortness of breath, palpitations, feeling anxious since 3 months which has worsened yesterday. Patient does not use home oxygen and is currently on 2 L oxygen. Patient states that every time he tries to sleep he has difficulty breathing and suddenly wakes up with palpitations. Patient feels tired and is dosing of while talking. Patient mentions he has been inactive after the procedure and has not been walking and is mostly on his bed. Patient's last use of methamphetamine was 2 days ago. Patient denies any chest pain, cough, nausea, vomiting, fever, chills, abdominal pain. Past surgical history: PCI 3 months ago Family history: Denies any heart diseases personal history: Active smoker, denies alcohol use, uses amphetamine, marijuana lives with: family Medication history: Aspirin, Plavix, Jardiance, statin, amlodipine, losartan, Trelegy 02/16/25: Patient seen at bedside. Patient states he has mild shortness of breath but denies any chest pain, nausea, vomiting, diarrhea, fever, chills. Patient does feel anxious and has palpitations after sleeping. CT angio showed segmental PE in the right lower lobe. : Patient seen at bedside. Patient today complains of nausea, inability to sleep. Patient does feel anxious and has palpitations after sleeping. patient has hypokalemia for which potassium was given. 02/18/2025: Patient seen at bedside. Patient today complains of inability to sleep, having palpitations, does not complain of nausea, vomiting. PT eval to be done. Started Bumex 2 mg b.i.d. Objective vital signs Vital Sign Date Time Temp Pulse Resp B/P (MAP) Pulse Ox O2 Delivery O2 Flow Rate FiO2 02/18/25 17:00 97.6 78 19 95/59 (71) 99 97.6 02/18/25 10:11 2.0 28 02/18/25 10:00 Nasal Cannula Total Intake and Output 02/17/25 02/17/25 02/18/25 15:00 23:00 07:00 Intake Total 645 ml 472 ml Output Total 775 ml 460 ml Balance -130 ml 12 ml medications Current Medications Medications Dose Ordered Sig/Dona Route Start Time Stop Time Status Last Admin Dose Admin Nitroglycerin 0.4 mg Q5MINP PRN SL 02/15/25 10:00 Lorazepam 0.5 mg Q12HP PRN PO 02/15/25 10:45 02/18/25 10:58 0.5 MG Clopidogrel Bisulfate 75 mg DAILY PO 02/16/25 10:00 02/18/25 10:24 75 MG Atorvastatin Calcium 80 mg HS PO 02/16/25 22:00 02/17/25 22:40 80 MG Empaglifozin 10 mg DAILY PO 02/16/25 10:00 02/18/25 10:15 10 MG Apixaban 10 mg BID PO 02/16/25 10:00 02/23/25 09:59 02/18/25 10:15 10 MG Apixaban 5 mg BID PO 02/23/25 10:00 Spironolactone 12.5 mg DAILY PO 02/16/25 10:00 02/18/25 10:13 12.5 MG Albuterol 2.5 mg Q6HPRN PRN NEB 02/16/25 18:00 02/18/25 11:49 2.5 MG Ipratropium [place] 0.5 mg Q6HPRN PRN NEB 02/16/25 18:00 02/18/25 11:49 0.5 MG Pantoprazole Sodium 40 mg DAILY@0600 PO 02/17/25 06:00 02/18/25 05:08 40 MG Ondansetron HCl 4 mg Q6HPRN PRN IV 02/17/25 08:00 02/18/25 05:09 4 MG Losartan Potassium 12.5 mg DAILY PO 02/19/25 10:00 Dobutamine HCl/ Dextrose 250 ml @ 12.54 mls/ hr [id number] IV 02/18/25 11:30 02/18/25 15:15 12.54 MLS/HR Morphine Sulfate 2 mg Q30M PRN IV 02/18/25 12:45 Bumetanide 2 mg BIDD IV 02/18/25 18:00 Examination General: Patient alert and oriented in person, place and time. Patient following commands. HEENT: Normocephalic, atraumatic, moist mucous membranes Respiratory/pulmonary: Bilateral crackles heard on auscultation Cardiovascular: Normal heart sounds S1 and S2 with no associated murmurs Abdomen: Abdomen nondistended, there is no pain to palpation in any of the abdominal quadrants, no palpable masses. Extremities: There is no peripheral edema present at the lower extremities. Peripheral Pulses: 3+ Radial (R). 3+ Radial (L). 3+ Dorsalis pedis (R). 3+ Dorsalis pedis(L) Skin: No rashes or pruritus, there is no sacral edema present at this time. Neurological: Intact cranial nerves with no focal neurologic deficits laboratory and microbiology Laboratory Tests 02/18/25 07:38 02/16/25 03:30 Test 02/18/25 07:38 Range/Units Serum Glucose 100 74-106 mg/dL Microbiology Date/Time Source Procedure Growth Status 02/15/25 11:38 Nose MRSA Screen - Final Complete Problem List/Assessment/Plan Problem List/Assessment/Plan # cardiogenic shock # Acute hypoxic respiratory failure due to acute pulmonary embolism # Acute pulmonary embolism # right-sided heart failure due to acute pulmonary embolism//left-sided heart failure # Acute chronic decompensated HFrEF, NYHA class IV # NSTEMI in the setting of acute PE # CAD Status post PCI # COPD # cardiomegaly # bilateral pleural effusions # ruled out DVT -patient is started on dobutamine drip -On 2 L of oxygen, nasal cannula -Albuterol and ipratropium p.r.n. -elevated tropes and BNP - CT angio Right lower lobe segmental pulmonary emboli. No CT evidence of right heart strain. Small right and trace left pleural effusion. Cardiomegaly. - DVT scan showed No right or left femoropopliteal venous thrombosis. -echo ordered lvef 10%, severe dilated LV, RV dysfunction noted , left atrium enlarged, moderate to severe tricuspi regurg , aortic sclerosis, no gradient across it performed -cardiology on board - strict I&O - statin - heparin drip stopped - started Eliquis 10 mg p.o. b.i.d. -IV Lasix 60 mg b.i.d. changed to Bumex 2mg b.i.d. -continue guideline directed medical therapy # hypokalemia - replaced # nicotine use disorder # methamphetamine use disorder # cannabis use disorder # medical noncompliance -UDS positive for methamphetamine and cannabis - patient counseled on cessation of methamphetamine, marijuana, smoking for 18 minutes # hypertensive heart disease -continue lisinopril PPI prophylaxis: Protonix DVT prophylaxis: Eliquis Goals of care addressed with the patient for more than 27 minutes: Full code status Case discussed with Dr. Garcia , patient and nurse Plan discussed with: Patient My Orders My Orders Orders - DONI CAMACHO Procedure Category Date Status Time Electrocardigram EKG 02/18/25 Logged 11:06 Losartan Tablet PHA 02/19/25 In Process (Cozaar Tablet) 10:00 Dobutamine 1000mcg/Ml PHA 02/18/25 In Process (Dobutrex) 11:30 Visit Coding STANDARD RES Billing Provider: MELY GARCIA MD Date of Service if different f: Feb 18, 2025 Common Visit Codes: [id number] INP/OBS CARE(HIGH) DONI CAMACHO RESIDENT Feb 18, 2025 17:58
[2025-02-18] MEDS ORDERED: FUROSEMIDE 100 MG/10ML VIAL IV SCH (18:00)
[2025-02-18] MEDS: BUMETANIDE 1mg/4ml VIAL (0.25mg/ml) IV SCH (18:07)
[2025-02-19] VITALS (12 sets, daily range): BP systolic 99–108; BP diastolic 63–83; PULSE 73–91; RESP 17–22; TEMP 97.8–97.9; O2SAT 91–99
[2025-02-19] MEDS ORDERED: METOPROLOL SUCCINATE XL 50 MG TAB PO SCH (10:00)
[2025-02-19] MEDS: LOSARTAN POTASSIUM 25 MG TAB PO SCH (10:21)
--- NOTE | 2025-02-19 10:55 | ECG ---
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
[2025-02-19 11:22] LABS: Hematocrit 38.8 % (41.0-53.0); Hemoglobin 12.5 g/dL (13.5-17.5); Mean Corpuscular Hemoglobin 28.2 pg (28.0-32.0); Mean Corpuscular Volume 87.9 fL (80.0-100.0); Nucleated Red Blood Cells % 0.1 %
[2025-02-19 11:39] LABS: Anion Gap 7 (5-15); Calcium 9.2 mg/dL (8.7-10.4); Carbon Dioxide 27 mmol/L (20-31); Chloride 100 mmol/L (98-107); Potassium 3.9 mmol/L (3.5-5.1)
[2025-02-19 11:41] LABS: Sodium 134 mmol/L (136-145)
[2025-02-19 11:43] LABS: Base Excess 1.9 mmol/L (-2.0-3.0)
[2025-02-19 11:45] LABS: BUN/Creatinine Ratio 16.4 (10.0-20.0); Blood Urea Nitrogen 18 mg/dL (9-23)
[2025-02-19 11:47] LABS: Glucose 115 mg/dL (74-106)
--- NOTE | 2025-02-19 18:07 | DVHPNRES ---
Progress Note Date Seen: Feb 19, 2025 Resident Creating Document: DONI CAMACHO RESIDENT Medical Necessity Reason Pt with a Central, PICC or Fol: No Subjective Review of Systems Patient is a 72-year-old male with past medical history of CAD status post PCI, anxiety, polysubstance abuse disorder, came with chief complaints of shortness of breath, palpitations, feeling anxious since 3 months which has worsened yesterday. Patient does not use home oxygen and is currently on 2 L oxygen. Patient states that every time he tries to sleep he has difficulty breathing and suddenly wakes up with palpitations. Patient feels tired and is dosing of while talking. Patient mentions he has been inactive after the procedure and has not been walking and is mostly on his bed. Patient's last use of methamphetamine was 2 days ago. Patient denies any chest pain, cough, nausea, vomiting, fever, chills, abdominal pain. Past surgical history: PCI 3 months ago Family history: Denies any heart diseases personal history: Active smoker, denies alcohol use, uses amphetamine, marijuana lives with: family Medication history: Aspirin, Plavix, Jardiance, statin, amlodipine, losartan, Trelegy 02/16/25: Patient seen at bedside. Patient states he has mild shortness of breath but denies any chest pain, nausea, vomiting, diarrhea, fever, chills. Patient does feel anxious and has palpitations after sleeping. CT angio showed segmental PE in the right lower lobe. : Patient seen at bedside. Patient today complains of nausea, inability to sleep. Patient does feel anxious and has palpitations after sleeping. patient has hypokalemia for which potassium was given. 02/18/2025: Patient seen at bedside. Patient today complains of inability to sleep, having palpitations, does not complain of nausea, vomiting. PT eval to be done. Started Bumex 2 mg b.i.d. 02/19/25: Patient seen at bedside. patient today complained of having palpitations, denies any nausea, vomiting. PT eval to be done. ABG after walking to be done to see if he qualifies for home oxygen. Objective vital signs Vital Sign Date Time Temp Pulse Resp B/P (MAP) Pulse Ox O2 Delivery O2 Flow Rate FiO2 02/19/25 17:18 97.9 79 22 105/75 (85) 99 97.9 02/19/25 10:19 Nasal Cannula* 3 32 Total Intake and Output 02/18/25 02/18/25 02/19/25 15:00 23:00 07:00 Intake Total 775 ml 938 ml Output Total 950 ml 300 ml Balance -175 ml 638 ml medications Current Medications Medications Dose Ordered Sig/Dona Route Start Time Stop Time Status Last Admin Dose Admin Nitroglycerin 0.4 mg Q5MINP PRN SL 02/15/25 10:00 Lorazepam 0.5 mg Q12HP PRN PO 02/15/25 10:45 02/19/25 15:03 0.5 MG Clopidogrel Bisulfate 75 mg DAILY PO 02/16/25 10:00 02/19/25 10:19 75 MG Atorvastatin Calcium 80 mg HS PO 02/16/25 22:00 02/18/25 22:47 80 MG Empaglifozin 10 mg DAILY PO 02/16/25 10:00 02/19/25 10:19 10 MG Apixaban 10 mg BID PO 02/16/25 10:00 02/23/25 09:59 02/19/25 10:19 10 MG Apixaban 5 mg BID PO 02/23/25 10:00 Spironolactone 12.5 mg DAILY PO 02/16/25 10:00 02/19/25 10:18 12.5 MG Albuterol 2.5 mg Q6HPRN PRN NEB 02/16/25 18:00 02/19/25 10:18 2.5 MG Ipratropium [place] 0.5 mg Q6HPRN PRN NEB 02/16/25 18:00 02/19/25 10:18 0.5 MG Pantoprazole Sodium 40 mg DAILY@0600 PO 02/17/25 06:00 02/19/25 05:12 40 MG Ondansetron HCl 4 mg Q6HPRN PRN IV 02/17/25 08:00 02/18/25 05:09 4 MG Losartan Potassium 12.5 mg DAILY PO 02/19/25 10:00 02/19/25 10:21 12.5 MG Dobutamine HCl/ Dextrose 250 ml @ 12.54 mls/ hr [id number] IV 02/18/25 11:30 02/19/25 08:03 12.54 MLS/HR Morphine Sulfate 2 mg Q30M PRN IV 02/18/25 12:45 Bumetanide 2 mg BIDD IV 02/18/25 18:00 02/19/25 05:12 2 MG Examination General: Patient alert and oriented in person, place and time. Patient following commands. HEENT: Normocephalic, atraumatic, moist mucous membranes Respiratory/pulmonary: Bilateral crackles heard on auscultation Cardiovascular: Normal heart sounds S1 and S2 with no associated murmurs Abdomen: Abdomen nondistended, there is no pain to palpation in any of the abdominal quadrants, no palpable masses. Extremities: There is no peripheral edema present at the lower extremities. Peripheral Pulses: 3+ Radial (R). 3+ Radial (L). 3+ Dorsalis pedis (R). 3+ Dorsalis pedis(L) Skin: No rashes or pruritus, there is no sacral edema present at this time. Neurological: Intact cranial nerves with no focal neurologic deficits laboratory and microbiology Laboratory Tests 02/19/25 10:46 Test 02/19/25 10:46 Range/Units Serum Glucose 115 H 74-106 mg/dL Microbiology Date/Time Source Procedure Growth Status 02/15/25 11:38 Nose MRSA Screen - Final Complete Problem List/Assessment/Plan Problem List/Assessment/Plan # cardiogenic shock # Acute hypoxic respiratory failure due to acute pulmonary embolism # Acute pulmonary embolism # right-sided heart failure due to acute pulmonary embolism//left-sided heart failure # Acute chronic decompensated HFrEF, NYHA class IV # NSTEMI in the setting of acute PE # CAD Status post PCI # COPD # cardiomegaly # bilateral pleural effusions # ruled out DVT -patient is started on dobutamine drip -On 2 L of oxygen, nasal cannula -Albuterol and ipratropium p.r.n. -elevated tropes and BNP - CT angio Right lower lobe segmental pulmonary emboli. No CT evidence of right heart strain. Small right and trace left pleural effusion. Cardiomegaly. - DVT scan showed No right or left femoropopliteal venous thrombosis. -echo ordered lvef 10%, severe dilated LV, RV dysfunction noted , left atrium enlarged, moderate to severe tricuspi regurg , aortic sclerosis, no gradient across it performed -cardiology on board - strict I&O - statin - heparin drip stopped - started Eliquis 10 mg p.o. b.i.d. -IV Lasix 60 mg b.i.d. changed to Bumex 2mg b.i.d. -continue guideline directed medical therapy # hypokalemia - replaced # nicotine use disorder # methamphetamine use disorder # cannabis use disorder # medical noncompliance -UDS positive for methamphetamine and cannabis - patient counseled on cessation of methamphetamine, marijuana, smoking for 18 minutes # hypertensive heart disease -continue lisinopril PPI prophylaxis: Protonix DVT prophylaxis: Eliquis Goals of care addressed with the patient for more than 27 minutes: Full code status Case discussed with Dr. Garcia , patient and nurse Plan discussed with: Patient My Orders My Orders Orders - DONI CAMACHO Procedure Category Date Status Time Abg W/ Co-Ox RT 02/19/25 Logged 17:26 Visit Coding STANDARD RES Billing Provider: MELY GARCIA MD Date of Service if different f: Feb 19, 2025 Common Visit Codes: [id number] INP/OBS CARE(HIGH) DONI CAMACHO RESIDENT Feb 19, 2025 18:07
[2025-02-20] VITALS (12 sets, daily range): BP systolic 105–115; BP diastolic 55–85; PULSE 69–90; RESP 17–24; TEMP 97.1–99; O2SAT 93–100
[2025-02-20 06:56] LABS: Chloride 100 mmol/L (98-107); Potassium 3.8 mmol/L (3.5-5.1); Sodium 138 mmol/L (136-145)
[2025-02-20 06:57] LABS: Anion Gap 8 (5-15); Carbon Dioxide 30 mmol/L (20-31)
[2025-02-20 06:58] LABS: Calcium 9.0 mg/dL (8.7-10.4)
[2025-02-20 07:02] LABS: BUN/Creatinine Ratio 14.0 (10.0-20.0); Blood Urea Nitrogen 14 mg/dL (9-23); Glucose 90 mg/dL (74-106)
[2025-02-20 13:10] LABS: Base Excess 5.0 mmol/L (-2.0-3.0)
[2025-02-20] MEDS ORDERED: SPIR25TA PO (15:08)
[2025-02-20] MEDS ORDERED: PANT40T PO (15:08)
[2025-02-20] MEDS ORDERED: CLOP75TA70 PO (15:08)
[2025-02-20] MEDS ORDERED: EMPA1TAB PO (15:08)
[2025-02-20] MEDS ORDERED: ATOR40TA52 PO (15:08)
[2025-02-20] MEDS ORDERED: BUM1T PO (15:08)
[2025-02-20] MEDS ORDERED: APIX5TAB PO (15:08)
[2025-02-20] MEDS ORDERED: LOS25T PO (15:08)
--- NOTE | 2025-02-20 15:41 | DVHPNRES ---
Progress Note Date Seen: Feb 20, 2025 Resident Creating Document: DONI CAMACHO RESIDENT Medical Necessity Reason Pt with a Central, PICC or Fol: No Subjective Review of Systems Patient is a 72-year-old male with past medical history of CAD status post PCI, anxiety, polysubstance abuse disorder, came with chief complaints of shortness of breath, palpitations, feeling anxious since 3 months which has worsened yesterday. Patient does not use home oxygen and is currently on 2 L oxygen. Patient states that every time he tries to sleep he has difficulty breathing and suddenly wakes up with palpitations. Patient feels tired and is dosing of while talking. Patient mentions he has been inactive after the procedure and has not been walking and is mostly on his bed. Patient's last use of methamphetamine was 2 days ago. Patient denies any chest pain, cough, nausea, vomiting, fever, chills, abdominal pain. Past surgical history: PCI 3 months ago Family history: Denies any heart diseases personal history: Active smoker, denies alcohol use, uses amphetamine, marijuana lives with: family Medication history: Aspirin, Plavix, Jardiance, statin, amlodipine, losartan, Trelegy 02/16/25: Patient seen at bedside. Patient states he has mild shortness of breath but denies any chest pain, nausea, vomiting, diarrhea, fever, chills. Patient does feel anxious and has palpitations after sleeping. CT angio showed segmental PE in the right lower lobe. : Patient seen at bedside. Patient today complains of nausea, inability to sleep. Patient does feel anxious and has palpitations after sleeping. patient has hypokalemia for which potassium was given. 02/18/2025: Patient seen at bedside. Patient today complains of inability to sleep, having palpitations, does not complain of nausea, vomiting. PT eval to be done. Started Bumex 2 mg b.i.d. 02/19/25: Patient seen at bedside. patient today complained of having palpitations, denies any nausea, vomiting. PT eval to be done. ABG after walking to be done to see if he qualifies for home oxygen. 02/20/2025: Patient seen at bedside. Patient today explained ABG after working is low. social service consulted for home oxygen. Objective vital signs Vital Sign Date Time Temp Pulse Resp B/P (MAP) Pulse Ox O2 Delivery O2 Flow Rate FiO2 02/20/25 11:05 100/67 02/20/25 10:00 94 Nasal Cannula 2.0 02/20/25 10:00 28 02/20/25 08:00 87 20 02/20/25 05:00 97.6 97.6 Total Intake and Output 02/19/25 02/19/25 02/20/25 15:00 23:00 07:00 Intake Total 12.54 ml 337 ml 1448 ml Output Total 580 ml 3275 ml Balance 12.54 ml -243 ml -1827 ml medications Current Medications Medications Dose Ordered Sig/Dona Route Start Time Stop Time Status Last Admin Dose Admin Nitroglycerin 0.4 mg Q5MINP PRN SL 02/15/25 10:00 Lorazepam 0.5 mg Q12HP PRN PO 02/15/25 10:45 02/20/25 11:07 0.5 MG Clopidogrel Bisulfate 75 mg DAILY PO 02/16/25 10:00 02/20/25 11:07 75 MG Atorvastatin Calcium 80 mg HS PO 02/16/25 22:00 02/19/25 21:45 80 MG Empaglifozin 10 mg DAILY PO 02/16/25 10:00 02/20/25 11:06 10 MG Apixaban 10 mg BID PO 02/16/25 10:00 02/23/25 09:59 02/20/25 11:06 10 MG Apixaban 5 mg BID PO 02/23/25 10:00 Spironolactone 12.5 mg DAILY PO 02/16/25 10:00 02/20/25 11:05 12.5 MG Albuterol 2.5 mg Q6HPRN PRN NEB 02/16/25 18:00 02/20/25 07:45 2.5 MG Ipratropium [place] 0.5 mg Q6HPRN PRN NEB 02/16/25 18:00 02/20/25 07:45 0.5 MG Pantoprazole Sodium 40 mg DAILY@0600 PO 02/17/25 06:00 02/20/25 05:59 40 MG Ondansetron HCl 4 mg Q6HPRN PRN IV 02/17/25 08:00 02/18/25 05:09 4 MG Losartan Potassium 12.5 mg DAILY PO 02/19/25 10:00 02/20/25 11:05 12.5 MG Morphine Sulfate 2 mg Q30M PRN IV 02/18/25 12:45 Bumetanide 2 mg BIDD IV 02/18/25 18:00 02/20/25 05:59 2 MG Examination General: Patient alert and oriented in person, place and time. Patient following commands. HEENT: Normocephalic, atraumatic, moist mucous membranes Respiratory/pulmonary: Bilateral crackles heard on auscultation Cardiovascular: Normal heart sounds S1 and S2 with no associated murmurs Abdomen: Abdomen nondistended, there is no pain to palpation in any of the abdominal quadrants, no palpable masses. Extremities: There is no peripheral edema present at the lower extremities. Peripheral Pulses: 3+ Radial (R). 3+ Radial (L). 3+ Dorsalis pedis (R). 3+ Dorsalis pedis(L) Skin: No rashes or pruritus, there is no sacral edema present at this time. Neurological: Intact cranial nerves with no focal neurologic deficits laboratory and microbiology Laboratory Tests 02/20/25 05:38 02/19/25 10:46 Test 02/20/25 05:38 Range/Units Serum Glucose 90 74-106 mg/dL Microbiology Date/Time Source Procedure Growth Status 02/15/25 11:38 Nose MRSA Screen - Final Complete Problem List/Assessment/Plan Problem List/Assessment/Plan # cardiogenic shock # Acute hypoxic respiratory failure due to acute pulmonary embolism # Acute pulmonary embolism # right-sided heart failure due to acute pulmonary embolism//left-sided heart failure # Acute chronic decompensated HFrEF, NYHA class IV # NSTEMI in the setting of acute PE # CAD Status post PCI # COPD # cardiomegaly # bilateral pleural effusions # ruled out DVT -patient is started on dobutamine drip -On 2 L of oxygen, nasal cannula -Albuterol and ipratropium p.r.n. -elevated tropes and BNP - CT angio Right lower lobe segmental pulmonary emboli. No CT evidence of right heart strain. Small right and trace left pleural effusion. Cardiomegaly. - DVT scan showed No right or left femoropopliteal venous thrombosis. -echo ordered lvef 10%, severe dilated LV, RV dysfunction noted , left atrium enlarged, moderate to severe tricuspi regurg , aortic sclerosis, no gradient across it performed -cardiology on board - strict I&O - statin - heparin drip stopped - started Eliquis 10 mg p.o. b.i.d. -IV Lasix 60 mg b.i.d. changed to Bumex 2mg b.i.d. -continue guideline directed medical therapy # hypokalemia - replaced # nicotine use disorder # methamphetamine use disorder # cannabis use disorder # medical noncompliance -UDS positive for methamphetamine and cannabis - patient counseled on cessation of methamphetamine, marijuana, smoking for 18 minutes # hypertensive heart disease -continue lisinopril PPI prophylaxis: Protonix DVT prophylaxis: Eliquis Goals of care addressed with the patient for more than 27 minutes: Full code status Case discussed with Dr. Garcia , patient and nurse Plan discussed with: Patient My Orders My Orders Orders - DONI CAMACHO Procedure Category Date Status Time Abg W/ Co-Ox RT 02/19/25 Logged 17:26 Visit Coding STANDARD RES Billing Provider: MELY GARCIA MD Date of Service if different f: Feb 20, 2025 Common Visit Codes: [id number] INP/OBS CARE(HIGH) DONI CAMACHO RESIDENT Feb 20, 2025 15:41
[2025-02-21] VITALS (9 sets, daily range): BP systolic 100–132; BP diastolic 71–97; PULSE 85–94; RESP 18–20; TEMP 97.1–98.3; O2SAT 3–100
--- NOTE | 2025-02-21 10:23 | DVHDSRES ---
Discharge Summary Date of Admission Resident Creating Document: DOUGDONIDon SIN Feb 15, 2025 at 09:51 Date of Discharge: Feb 21, 2025 Admitting Diagnosis # cardiogenic shock Labs/Diagnostic Data: Laboratory Results Test 02/20/25 12:53 02/20/25 05:38 02/19/25 10:46 02/17/25 18:11 Blood Gas Specimen Type Arterial Blood Gas Sample Site Right radial Blood Gas Patient Temperature 37.0 Arterial Blood Date Drawn [id number] Arterial Blood pH 7.463 (7.350-7.450) Arterial Blood Partial Pressure CO2 41.9 mmHg (35.0-48.0) Arterial Blood Partial Pressure O2 53.9 mmHg (83.0-108.0) Arterial Blood HCO3 29.3 mmol/L (21.0-28.0) Arterial Blood Oxygen Saturation 87.1 % (94.0-98.0) Arterial Blood Base Excess 5.0 mmol/L (-2.0-3.0) Arterial Blood Oxyhemoglobin 86.0 % (94.0-98.0) Arterial Blood Carboxyhemoglobin 0.8 % (0.5-1.5) Arterial Blood Methemoglobin 0.5 % (0.0-1.5) Arterial Blood Deoxyhemoglobin 12.7 % (0.0-5.0) Darci Test Modified Blood Gas Total Hemoglobin 13.90 g/dL (13.5-17.5) Blood Gas Modality Room air FiO2 % 21.0 Blood Gas Critical Value Read Back Yes Blood Gas Notified Whom gabi Cooney md. Blood Gas Notified Time [id number] Blood Gas Notified By brayan Mercedes rt Sodium Level 138 mmol/L (136-145) Potassium Level 3.8 mmol/L (3.5-5.1) Chloride Level 100 mmol/L (98-107) Carbon Dioxide Level 30 mmol/L (20-31) Anion Gap 8 (5-15) Blood Urea Nitrogen 14 mg/dL (9-23) Creatinine 1.00 mg/dL (0.700-1.30) Glomerular Filtration Rate Calc 82 mL/min (>90) BUN/Creatinine Ratio 14.0 (10.0-20.0) Serum Glucose 90 mg/dL (74-106) Calcium Level 9.0 mg/dL (8.7-10.4) White Blood Count 8.5 10^3/uL (4.4-10.8) Red Blood Count 4.41 10^6/uL (4.5-5.90) Hemoglobin 12.5 g/dL (13.5-17.5) Hematocrit 38.8 % (41.0-53.0) Mean Corpuscular Volume 87.9 fL (80.0-100.0) Mean Corpuscular Hemoglobin 28.2 pg (28.0-32.0) Mean Corpuscular Hemoglobin Concent 32.1 g/dL (32.0-36.0) Red Cell Distribution Width 16.0 % (11.8-14.3) Platelet Count 202 10^3/uL (140-450) Mean Platelet Volume 8.5 fL (6.9-10.8) Neutrophils (%) (Auto) 67.0 % (37.0-80.0) Lymphocytes (%) (Auto) 20.5 % (10.0-50.0) Monocytes (%) (Auto) 9.5 % (0.0-12.0) Eosinophils (%) (Auto) 2.5 % (0.0-7.0) Basophils (%) (Auto) 0.5 % (0.0-2.0) Neutrophils # (Auto) 5.7 10 ^3/uL (1.6-8.6) Lymphocytes # (Auto) 1.8 10 ^3/uL (0.4-5.4) Monocytes # (Auto) 0.8 10 ^3/uL (0-1.3) Eosinophils # (Auto) 0.2 10 ^3/uL (0-0.8) Basophils # (Auto) 0 10 ^3/uL (0-0.2) Nucleated Red Blood Cells 0.1 % Magnesium Level 2.1 mg/dL (1.6-2.6) Test 02/16/25 17:10 02/16/25 11:50 02/16/25 09:30 02/15/25 11:05 Troponin I High Sensitivity 899 ng/L (</=54) POC Glucose 133 mg/dl (70-106) Prothrombin Time 13.0 sec (9.3-11.8) Prothrombin Time INR 1.25 (0.9-1.15) Activated Partial Thromboplast Time 64.4 SEC (24.5-34.5) Urine Color Yellow (Yellow) Urine Clarity Clear (Clear) Urine pH 5.5 (5.0-9.0) Urine Specific Buckner 1.030 (1.001-1.035) Urine Protein 1+ (Negative) Urine Ketones Negative (Negative) Urine Blood Negative /uL (Negative) Urine Nitrite Negative (Negative) Urine Bilirubin Negative (Negative) Urine Urobilinogen Normal mg/dL (Negative) Urine Leukocyte Esterase Negative /uL (Negative) Urine RBC 1 /hpf (0 - 3) Urine Microscopic WBC 1 /HPF (0-3) Urine Squamous Epithelial Cells None seen /hpf (<5) Urine Bacteria None seen /hpf (None Seen) Urine Mucus Few (None Seen) Urine Glucose 4+ mg/dL (Normal) Urine Opiates Screen Neg (NEGATIVE) Urine Fentanyl Screen Neg (NEGATIVE) Urine Barbiturates Screen Neg (NEGATIVE) Urine Phencyclidine Screen Neg (NEGATIVE) Urine Amphetamines Screen Pos (NEGATIVE) Urine Benzodiazepines Screen Pos (NEGATIVE) Urine Cocaine Screen Neg (NEGATIVE) Urine Cannabinoids Screen Pos (NEGATIVE) Test 02/15/25 11:00 D-Dimer, Quantitative 0.96 mg/L FEU (0.0-0.49) Hemoglobin A1c 5.7 % A1C (<5.7) Total Bilirubin 0.9 mg/dL (0.2-1.0) Aspartate Amino Transferase (AST) 43 U/L (13-40) Alanine Aminotransferase (ALT) 36 U/L (7-40) Alkaline Phosphatase 102 U/L (46-116) B-Type Natriuretic Peptide 2466.64 pg/mL (0-100) Total Protein 7.3 g/dL (5.7-8.2) Albumin 4.1 g/dL (3.2-4.8) Triglycerides Level 59 mg/dL (< 150) Cholesterol Level 68 mg/dL (< 200) LDL Cholesterol 35 mg/dL (< 100) HDL Cholesterol 24 mg/dL (40-59) Influenza Type A Antigen Negative (Negative) Influenza Type B Antigen Negative (Negative) SARS-CoV-2 Antigen (Rapid) Negative (NEGATIVE) Other Laboratory Tests 02/20/25 05:38 02/19/25 10:46 Brief Hx & Hospital Course: Patient is a 72-year-old male with past medical history of CAD status post PCI, anxiety, polysubstance abuse disorder, came with chief complaints of shortness of breath, palpitations, feeling anxious since 3 months which has worsened yesterday. Patient does not use home oxygen and is currently on 2 L oxygen. Patient states that every time he tries to sleep he has difficulty breathing and suddenly wakes up with palpitations. Patient feels tired and is dosing of while talking. Patient mentions he has been inactive after the procedure and has not been walking and is mostly on his bed. Patient's last use of methamphetamine was 2 days ago. Patient denies any chest pain, cough, nausea, vomiting, fever, chills, abdominal pain. Past surgical history: PCI 3 months ago Family history: Denies any heart diseases personal history: Active smoker, denies alcohol use, uses amphetamine, marijuana lives with: family Medication history: Aspirin, Plavix, Jardiance, statin, amlodipine, losartan, Trelegy Brief hospital course: Patient came with chief complaints of shortness of breath. Patient has cardiogenic shock for which he was started on dobutamine drip. Patient is on 2 L oxygen and is to be continued at home. Patient started on Albuterol and ipratropium p.r.n., elevated tropes and BNP. CT angio Right lower lobe segmental pulmonary emboli. No CT evidence of right heart strain. Small right and trace left pleural effusion. Cardiomegaly. DVT scan showed No right or left femoropopliteal venous thrombosis. echo ordered and showed lvef 10%, severe dilated LV, RV dysfunction noted , left atrium enlarged, moderate to severe tricuspi regurg , aortic sclerosis, cardiology consulted. patient kept on strict I&O, started statin, patient is started on Eliquis 10 mg p.o. b.i.d. Lasix was changed to Bumex 2 mg b.i.d.. Patient is to continue GDM T treatment. Patient had hypokalemia for which it was replaced. her nicotine use, methamphetamine use, cannabis use disorder for which patient was counseled on cessation for greater than 20 minutes. General: Patient alert and oriented in person, place and time. Patient following commands. HEENT: Normocephalic, atraumatic, moist mucous membranes Respiratory/pulmonary: Bilateral crackles heard on auscultation Cardiovascular: Normal heart sounds S1 and S2 with no associated murmurs Abdomen: Abdomen nondistended, there is no pain to palpation in any of the abdominal quadrants, no palpable masses. Extremities: There is no peripheral edema present at the lower extremities. Peripheral Pulses: 3+ Radial (R). 3+ Radial (L). 3+ Dorsalis pedis (R). 3+ Dorsalis pedis(L) Skin: No rashes or pruritus, there is no sacral edema present at this time. Neurological: Intact cranial nerves with no focal neurologic deficits Patient is to take Home oxygen at 2 L Apixaban 5 mg p.o. b.i.d. Atorvastatin 40 mg p.o. HS Bumex tablet 1 mg PO . b.i.d. 14 days clopidogrel 75 mg p.o. daily Jardiance 10 mg p.o. daily Losartan 25 mg p.o. daily Pantoprazole 40 mg p.o. daily Spironolactone 12.5 mg p.o. daily Operations or Procedures ORDERING PHYSICIAN: LORETTA FRIAS PROCEDURE(s): BLDVT - BiLat Lower DVT REASON: PE rule out DVT ORDER NUMBER(s): [id number], ACCESSION NUMBER(s): [id number] Bilateral lower extremity venous duplex Clinical History: PE rule out DVT Comparison: US BILAT LOWER DVT on DOS: 11/24/24 Technique: Duplex Doppler evaluation of the deep venous systems of both lower extremities from the common femoral veins to the popliteal veins including color Doppler and spectral/pulsed waveform analysis was performed. Findings: RIGHT SIDE: The common femoral vein demonstrates appropriate compressibility and waveform variability. There is compressibility/patency of the great saphenous vein at the proximal thigh. The femoral vein demonstrates appropriate compressibility and waveform variability. The deep femoral vein demonstrates appropriate compressibility and waveform variability. The popliteal vein demonstrates appropriate compressibility and waveform variability. There is normal compressibility at the tibioperoneal trunk. LEFT SIDE: The common femoral vein demonstrates appropriate compressibility and waveform variability. There is compressibility/patency of the great saphenous vein at the proximal thigh. The femoral vein demonstrates appropriate compressibility and waveform variability. The deep femoral vein demonstrates appropriate compressibility and waveform variability. The popliteal vein demonstrates appropriate compressibility and waveform variability. There is normal compressibility at the tibioperoneal trunk. Impression: 1. No right or left femoropopliteal venous thrombosis. ATED BY: SANDEE STEWART MD DICTATED DATE/TIME: 02/16/25 1146 SIGNED BY: SANDEE STEWART MD SIGNED DATE/TIME: 02/16/25 114 CC: ORDERING PHYSICIAN: DAVID BARBOZA RESIDENT PROCEDURE(s): CTACH - CT ANGIO CHEST CONTRAST REASON: sob ORDER NUMBER(s): [id number], ACCESSION NUMBER(s): [id number] ADDENDUM ADDENDUM # 1 Critical result: Subsegmental right lower lobe pulmonary emboli and findings suggesting possible congestive heart failure. Findings discussed with Dr. Denise on 02/15/2025 at 2:[address] Camargo, with acknowledged receipt and understanding of the findings. ORIGINAL REPORT CTA Chest with intravenous contrast INDICATION: sob COMPARISON: Chest radiographs performed on 02/14/2025. TECHNIQUE: Multidetector spiral CTA of the chest was performed of the chest with 95 cc of omnipaque 350 intravenous contrast. PULMONARY ANGIOGRAPHY PROTOCOL was utilized using a bolus-tracking technique centered on the main pulmonary artery. Coronal and sagittal multiplanar and MIP reformats were performed. Radiation Dose : 1. Chest: CTDI volume is 41.44 mGy. Dose-length product is 504.7 mGy*cm The dose indicators for CT are the volume Computed Tomography (CT) Dose Index (CTDIvol) and the Dose Length Product (DLP), and are measured in units of mGy and mGy-cm, respectively. These indicators are not patient dose, but values generated from the CT scanner acquisition factors. The report includes radiation exposure data for exposures received during this examination. FINDINGS: Pulmonary artery: There is a filling defect in right lower lobe segmental branches consistent with pulmonary emboli. Lower neck: Normal thyroid. Lungs: Bilateral lower lobe atelectasis noted. Central airways: Patent. Pleura: No pneumothorax. Small right and trace left pleural effusion. Heart/Vascular Structures: Heart is enlarged. RV to LV ratio measures 0.8. No pericardial effusion. Thoracic aorta is normal in caliber. No aneurysm or dissection. Lymph Nodes: No mediastinal or hilar lymphadenopathy. Esophagus:Grossly unremarkable. Musculoskeletal: Old bilateral rib fractures. No acute fracture. Body wall: Unremarkable. Upper abdomen: Gallbladder edema. Mild mesenteric edema in the upper abdomen. Reflux of contrast into the hepatic veins. IMPRESSION: 1. Right lower lobe segmental pulmonary emboli. No CT evidence of right heart strain. 2. Small right and trace left pleural effusion. 3. Cardiomegaly. Reflux of contrast into the hepatic veins suggesting right heart insufficiency. 4. Gallbladder wall edema. Condition at Discharge: Stable Final Diagnosis/Problems List # cardiogenic shock # Acute hypoxic respiratory failure due to acute pulmonary embolism # Acute pulmonary embolism # right-sided heart failure due to acute pulmonary embolism//left-sided heart failure # Acute chronic decompensated HFrEF, NYHA class IV # NSTEMI in the setting of acute PE # CAD Status post PCI # COPD # cardiomegaly # bilateral pleural effusions # ruled out DVT # hypokalemia # nicotine use disorder # methamphetamine use disorder # cannabis use disorder # medical noncompliance # hypertensive heart disease Discharge Disposition: Home Discharge Instruct/Medications Diet: Consistent carbohydrate, Cardiac 2g Na,low cholest Activity: No Restrictions, As Tolerated Follow Up/Referral: Follow-up with discharge Clinic in 1 week Follow-up with PCP in 1 week Medications: As per EMR Scheduled Amlodipine Besylate (Amlodipine Besylate), 1 TAB PO DAILY, (Reported) Apixaban Base (Eliquis), 5 MG PO BID Aspirin (Aspirin), 1 TAB PO DAILY, (Reported) Atorvastatin Calcium (Atorvastatin Calcium), 1 TAB PO DAILY, (Reported) Atorvastatin Calcium (Atorvastatin Calcium), 40 MG PO HS Bumetanide (Bumex Tablet), 2 MG PO BID Clopidogrel Bisulfate (Plavix), 1 TAB PO DAILY, (Reported) Clopidogrel Bisulfate (Clopidogrel), 75 MG PO DAILY Empagliflozin (Jardiance), 1 TAB PO DAILY, (Reported) Empagliflozin (Jardiance), 10 MG PO DAILY Lisinopril (Lisinopril), 1 TAB PO DAILY, (Reported) Losartan Potassium (Losartan Potassium), 12.5 MG PO DAILY Pantoprazole Sodium Sesquihydr (Pantoprazole Sodium), 40 MG PO DAILY@0600 Spironolactone (Aldactone), 12.5 MG PO DAILY Miscellaneous Medications Albuterol Sulfate (Ventolin Mdi), 90 MCG IN, (Reported) Temazepam (Temazepam), 15 MG PO, (Reported) Discharge Statement: "Patient was advised to return to the ER or call 911 if any headaches, dizziness, shortness of breath, chest pain, abdominal pain, bleeding, fevers, or worsening of medical condition. Patient was counseled about treatment plan, medications, possible side effects, patientverbalized understanding. All questions were answered to the best of my ability. This discharge took greater then 30 minutes in planning, reviewing documentation, counseling the patient, and discussing with other team members." ASSESSMENT ASSESSMENT Assessment # cardiogenic shock Visit Coding STANDARD RES Billing Provider: ADAIR HERNANDEZ MD Date of Service if different f: Feb 21, 2025 Common Visit Codes: 51372-ZQA/OBS DISCH DAY >30min DONI CAMACHO RESIDENT Feb 21, 2025 10:22
[2025-02-23] MEDS ORDERED: APIXABAN 5 MG TAB PO SCH (10:00)
== END 2025-02-21 14:35 | disposition home or self-care (01) | DRG 280 ==
LOC: ER 20:01 → EDBD 20:01 → OVERFLOW 02-15 09:51 → MERGE 02-15 09:51 → TELE-WESTW 02-15 18:33
PROVIDERS: ADMIT Student in an Organized Health Care Education/Training Program; ATTEND Student in an Organized Health Care Education/Training Program
DX: I21.4 Non-ST elevation (NSTEMI) myocardial infarction (principal); I26.99 Other pulmonary embolism without acute cor pulmonale; I50.23 Acute on chronic systolic (congestive) heart failure; J96.01 Acute respiratory failure with hypoxia; R57.0 Cardiogenic shock; Z79.01 Long term (current) use of anticoagulants; I11.0 Hypertensive heart disease with heart failure; J44.9 Chronic obstructive pulmonary disease, unspecified; Z20.822 Contact with and (suspected) exposure to COVID-19; I25.10 Atherosclerotic heart disease of native coronary artery without angina pectoris; E87.6 Hypokalemia; F15.90 Other stimulant use, unspecified, uncomplicated; F12.90 Cannabis use, unspecified, uncomplicated; F17.210 Nicotine dependence, cigarettes, uncomplicated; I25.5 Ischemic cardiomyopathy; R73.03 Prediabetes; Z95.5 Presence of coronary angioplasty implant and graft; Z71.51 Drug abuse counseling and surveillance of drug abuser; Z91.199 Patient's noncompliance with other medical treatment and regimen due to unspecified reason; Z86.74 Personal history of sudden cardiac arrest
CPT/HCPCS: 36415; 36600; 71045; 71275; 80048; 80053; 80061; 80307; 81001; 82805; 82962; 83036; 83735; 83880; 84132; 84484; 85025; 85379; 85610; 85730; 87081; 87426; 87804; 93005; 93306; 93970; 94640; 97163; 99291; G0378; J1815; J2405